=== PATIENT | female | born 1995 | race Caucasian/White ===

== ENCOUNTER 2016-10-23 15:52 | Inpatient (IN) | payer SELFPAY ==
[~2016-10-23] VITALS: Ht 162.6 cm; Wt 70.3 kg
[~2016-10-23 15:52] MED LIST: ALPR0.25 PO; AMIT10TA PO; AMOX875T PO; HYDR-2666 PO; ONDA4TAB10 PO; PRED50TA PO
[2016-10-23] MEDS ORDERED: IV NORMAL SALINE 1000ML BAG 1,000 ML IV SCH (17:12)
--- NOTE | 2016-10-23 17:12 | PHYS DOC ---
Past Medical History Past Medical History: Anxiety, Asthma, Cyclic Vomiting, Depression Additional Past Medical Histor: cyclic vomiting syndrome Past Surgical History: Cholecystectomy Alcohol Use: None Drug Use: Marijuana Social History Narrative: last used 3-4 weeks ago Adult General Chief Complaint Chief Complaint: ABDOMINAL PAIN HPI HPI Patient is a 21 year old female who presents with nausea/vomiting/diarrhea and abdominal pain. Of note, patient has history of cyclic vomiting syndrome and has had similar episodes in the past. She reports her symptoms started yesterday morning without provocation. She describes a sharp constant periumbilical pain that is worse with vomiting. She says she has vomited so many times today she is unable to keep track. No blood in emesis or stool. She denies fever. She takes amitriptyline for anxiety but says she does not have any nausea meds or pain meds at home. Review of Systems Review of Systems Constitutional: Denies fever or chills Eyes: Denies change in visual acuity or eye pain HENT: Denies nasal congestion or sore throat Respiratory: Denies cough or shortness of breath Cardiovascular: Denies chest pain GI: Periumbilica abdominal pain, nausea, vomiting, diarrhea : Denies dysuria or hematuria Musculoskeletal: Denies back pain or joint pain Integument: Denies rash or skin lesions Neurologic: Denies headache, focal weakness or sensory changes Current Medications Current Medications Current Medications Medications (Trade) Dose Ordered Sig/Arnaldo Start Time Stop Time Status Last Admin Dose Admin Lorazepam (Ativan) 1 mg 1X ONCE 10/23/16 18:15 10/23/16 18:16 DC 10/23/16 18:45 1 MG Morphine Sulfate 4 mg 1X ONCE 10/23/16 17:15 10/23/16 17:18 DC 10/23/16 17:55 4 MG Ondansetron HCl (Zofran) 4 mg 1X ONCE 10/23/16 18:15 10/23/16 18:16 DC 10/23/16 18:41 4 MG Pantoprazole Sodium (Protonix Vial) 40 mg 1X ONCE 10/23/16 18:15 10/23/16 18:16 DC 10/23/16 18:42 40 MG Prochlorperazine Edisylate (Compazine) 10 mg 1X ONCE 10/23/16 17:15 10/23/16 17:18 DC 10/23/16 17:53 10 MG Sodium Chloride (Iv Sodium Chloride 0.9% 1000ml Bag) 1,000 ml @ 1,000 mls/hr Q1H 10/23/16 17:12 10/23/16 18:11 DC 10/23/16 17:51 1,000 MLS/HR Allergies Allergies Allergies Coded Allergies Type Severity Reaction Last Updated Verified coconut Allergy Severe Anaphylaxis 09/04/16 Yes Physical Exam Physical Exam Constitutional: Well developed, well nourished, non-toxic appearance HENT: Normocephalic, atraumatic, bilateral external ears normal Eyes: EOMI, conjunctiva normal, no discharge Neck: Normal range of motion, no stridor Cardiovascular: Tachycardic, regular rhythm, no murmur Lungs & Thorax: Bilateral breath sounds clear to auscultation Abdomen: Bowel sounds normal, soft, non-distended, periumbilical TTP without guarding or rebound; frequent NBNB vomiting Skin: Warm, dry, no erythema, no rash Extremities: No obvious deformity, no edema Neurologic: Alert and oriented X 3, no gross deficits noted Current Patient Data Vital Signs Vital Signs Date Time Temp Pulse Resp B/P Pulse Ox O2 Delivery O2 Flow Rate FiO2 10/23/16 17:58 101 24 136/88 100 Room Air 10/23/16 16:36 98.3 98.3 Lab Values Laboratory Tests Test 10/23/16 17:05 White Blood Count 13.8x10^3/uL (4.0-11.0) H Red Blood Count 4.98x10^6/uL (3.50-5.40) Hemoglobin 14.8g/dL (12.0-15.5) Hematocrit 43.0% (36.0-47.0) Mean Corpuscular Volume 86fL (79-100) Mean Corpuscular Hemoglobin 30pg (25-35) Mean Corpuscular Hemoglobin Concent 35g/dL (31-37) Red Cell Distribution Width 13.2% (11.5-14.5) Platelet Count 219x10^3/uL (140-400) Neutrophils (%) (Auto) 79% (31-73) H Lymphocytes (%) (Auto) 16% (24-48) L Monocytes (%) (Auto) 4% (0-9) Eosinophils (%) (Auto) 0% (0-3) Basophils (%) (Auto) 0% (0-3) Neutrophils # (Auto) 10.9x10^3uL (1.8-7.7) H Lymphocytes # (Auto) 2.2x10^3/uL (1.0-4.8) Monocytes # (Auto) 0.6x10^3/uL (0.0-1.1) Eosinophils # (Auto) 0.0x10^3/uL (0.0-0.7) Basophils # (Auto) 0.1x10^3/uL (0.0-0.2) Urine Collection Type Void Urine Color Yellow Urine Clarity Turbid Urine pH 6.0 Urine Specific [place] >=1.030 Urine Protein Negativemg/dL (NEG-TRACE) Urine Glucose (UA) Negativemg/dL (NEG) Urine Ketones (Stick) 15mg/dL (NEG) Urine Blood Negative (NEG) Urine Nitrite Negative (NEG) Urine Bilirubin Negative (NEG) Urine Urobilinogen Dipstick 0.2mg/dL (0.2 mg/dL) Urine Leukocyte Esterase Negative (NEG) Urine RBC 0/HPF (0-2) Urine WBC 1-4/HPF (0-4) Urine Squamous Epithelial Cells Many/LPF Urine Bacteria Many/HPF (0-FEW) Urine Mucus Marked/LPF Urine Test Negative (NEG) Sodium Level 139mmol/L (136-145) Potassium Level 3.6mmol/L (3.5-5.1) Chloride Level 101mmol/L (98-107) Carbon Dioxide Level 21mmol/L (21-32) Anion Gap 17 (6-14) H Blood Urea Nitrogen 12mg/dL (7-20) Creatinine 0.9mg/dL (0.6-1.0) Estimated GFR (Cockcroft-Gault) 77.6 BUN/Creatinine Ratio 13 (6-20) Glucose Level 171mg/dL (70-99) H Calcium Level 9.5mg/dL (8.5-10.1) Total Bilirubin 0.8mg/dL (0.2-1.0) Aspartate Amino Transferase (AST) 12U/L (15-37) L Alanine Aminotransferase (ALT) 21U/L (14-59) Alkaline Phosphatase 66U/L (46-116) Total Protein 8.0g/dL (6.4-8.2) Albumin 4.5g/dL (3.4-5.0) Albumin/Globulin Ratio 1.3 (1.0-1.7) Lipase 101U/L (73-393) Laboratory Tests 10/23/16 17:05 Laboratory Tests 10/23/16 17:05 EKG EKG [] Radiology/Procedures Radiology/Procedures [] Course & Med Decision Making Course & Med Decision Making Pertinent Labs and Imaging studies reviewed. (See chart for details) Patient is 21-year-old female who presents with abdominal pain, nausea/vomiting/ diarrhea. Apparent cyclic vomiting episode. Will check labs, UA. IV fluids, pain medication, nausea medication ordered for symptom relief. Labs notable for leukocytosis. Discussed results with patient, who continues to experience severe symptoms. Will give another dose of meds; if unable to control symptoms will need admission. At this time will transfer patient care to Dr. Garcia. Ce Disclaimer Ce Disclaimer This electronic medical record was generated, in whole or in part, using a voice recognition dictation system. Departure Departure Referrals: NO PCP (PCP) KEREN MONTENEGRO MD Oct 23, 2016 17:12
[2016-10-23] MEDS ORDERED: MORPHINE SULFATE 4 MG/ML DISP.SYRIN. IV ONE (17:15)
[2016-10-23] MEDS ORDERED: PROCHLORPERAZINE 10 MG/2 ML VIAL. IV ONE (17:15)
[2016-10-23 17:25] LABS: BASO # 0.1 x10^3/uL (0.0-0.2); BASO % 0 % (0-3); EOS % 0 % (0-3); HEMOGLOBIN 14.8 g/dL (12.0-15.5); LYMPH # 2.2 x10^3/uL (1.0-4.8); LYMPH % 16 % (24-48); MEAN CORPUSCULAR HEMOGLOBIN 30 pg (25-35); MEAN CORPUSCULAR HGB CONC 35 g/dL (31-37); MEAN CORPUSCULAR VOLUME 86 fL (79-100); MONO % 4 % (0-9); NEUT % 79 % (31-73); PLATELET COUNT 219 x10^3/uL (140-400); RED BLOOD COUNT 4.98 x10^6/uL (3.50-5.40); RED CELL DISTRIBUTION WIDTH 13.2 % (11.5-14.5); WHITE BLOOD COUNT 13.8 x10^3/uL (4.0-11.0)
[2016-10-23 17:31] LABS: NEG OBC UR NEG; POS OBC UR POS
[2016-10-23 17:32] LABS: BILIRUBIN,URINE NEGATIVE (NEG); GLUCOSE,URINE NEGATIVE (NEG); NITRITE,URINE NEGATIVE (NEG); PROTEIN,URINE NEGATIVE (NEG-TRACE); UROBILINOGEN,URINE 0.2 mg/dL (0.2 mg/dL)
[2016-10-23 17:33] LABS: CALCIUM 9.5 mg/dL (8.5-10.1); CREATININE 0.9 mg/dL (0.6-1.0); GFR 77.6; POTASSIUM 3.6 mmol/L (3.5-5.1)
[2016-10-23 17:38] LABS: ALBUMIN 4.5 g/dL (3.4-5.0); ALBUMIN/GLOBULIN RATIO 1.3 (1.0-1.7); TOTAL BILIRUBIN 0.8 mg/dL (0.2-1.0)
[2016-10-23 17:42] LABS: BACTERIA,URINE MANY /HPF (0-FEW); RBC,URINE 0 /HPF (0-2); SQUAMOUS EPITHELIAL CELL,UR MANY /LPF
[2016-10-23] MEDS ORDERED: LORAZEPAM 2 MG/ML VIAL IV ONE (18:15)
[2016-10-23] MEDS ORDERED: ONDANSETRON PF 4 MG/2 ML VIAL. IV ONE (18:15)
[2016-10-23] MEDS ORDERED: PANTOPRAZOLE IV PUSH 40 MG VIAL. IVP ONE (18:15)
[2016-10-23] MEDS: IV NORMAL SALINE 1000ML BAG 1,000 ML IV SCH (20:11)
[2016-10-23] MEDS: ONDANSETRON PF 4 MG/2 ML VIAL. IV PRN (20:12)
[2016-10-23] MEDS: FENTANYL PF 100 MCG/2 ML VIAL. IV PRN (20:14)
[2016-10-23] MEDS ORDERED: ACETAMINOPHEN 325 MG TABLET. PO PRN (20:15)
[2016-10-23 21:35] VITALS: BP 122/83
[2016-10-23 23:00] VITALS: BP 104/71
[2016-10-24] MEDS: IV NORMAL SALINE 1000ML BAG 1,000 ML IV SCH ×2 (00:46→08:06)
[2016-10-24 03:00] VITALS: BP 90/40
[2016-10-24] MEDS: FENTANYL PF 100 MCG/2 ML VIAL. IV PRN ×2 (03:22→08:08)
[2016-10-24] MEDS: ONDANSETRON PF 4 MG/2 ML VIAL. IV PRN (03:22)
[2016-10-24 07:00] VITALS: BP 94/55
[2016-10-24 11:15] VITALS: BP 113/80
== END 2016-10-24 13:20 | disposition left against medical advice (07) | DRG 103 ==
LOC: ER 15:52 → 5 SOUTH 19:30
PROVIDERS: ADMIT Internal Medicine; ATTEND Internal Medicine
DX: G43.A0 Cyclical vomiting, in migraine, not intractable (principal); R10.9 Unspecified abdominal pain; J45.909 Unspecified asthma, uncomplicated; F41.9 Anxiety disorder, unspecified; F12.90 Cannabis use, unspecified, uncomplicated; F32.9 Major depressive disorder, single episode, unspecified; Z90.49 Acquired absence of other specified parts of digestive tract
CPT/HCPCS: 36415; 80053; 81001; 81025; 83690; 85027; 87086; 87186; 96361; 96374; 96375; C9113; J0780; J2060; J2270; J2405; J3010; J7030; 99285-25

== ENCOUNTER 2016-12-16 07:22 | Inpatient (IN) | payer SELFPAY ==
[~2016-12-16] VITALS: Ht 162.6 cm; Wt 68.0 kg
--- NOTE | 2016-12-16 07:56 | PHYS DOC ---
Past Medical History Past Medical History: Anxiety, Asthma, Cyclic Vomiting, Depression Additional Past Medical Histor: cyclic vomiting syndrome Past Surgical History: Cholecystectomy Alcohol Use: None Drug Use: Marijuana Adult General Chief Complaint Chief Complaint: ABDOMINAL PAIN HPI HPI Patient is a 21 year old female who presents with who vomiting at all pain. She states she has a history of cyclic vomiting syndrome this exact same thing happens every time. She states she started having abdominal pain around 6 PM last night and then this morning has been vomiting bile. She denies any fevers chills or diarrhea. She states this is her typical presentation and usually has be admitted secondary to this. She states she's wished takes Protonix IV, Ativan, Dilaudid and Zofran to help with her symptoms. Review of Systems Review of Systems Constitutional: Denies fever or chills [] Eyes: Denies change in visual acuity, redness, or eye pain [] HENT: Denies nasal congestion or sore throat [] Respiratory: Denies cough or shortness of breath [] Cardiovascular: No additional information not addressed in HPI [] GI: As a for abdominal pain, nausea vomiting, denies any diarrhea or blood in her stools. : Denies dysuria or hematuria [] Musculoskeletal: Denies back pain or joint pain [] Integument: Denies rash or skin lesions [] Neurologic: Denies headache, focal weakness or sensory changes [] Endocrine: Denies polyuria or polydipsia [] Current Medications Current Medications Current Medications Medications (Trade) Dose Ordered Sig/Arnaldo Start Time Stop Time Status Last Admin Dose Admin Hydromorphone HCl (Dilaudid) 1 mg PRN Q15MIN PRN 12/16/16 07:45 12/17/16 07:44 12/16/16 09:33 1 MG Lorazepam (Ativan) 1 mg 1X ONCE 12/16/16 08:00 12/16/16 08:01 DC 12/16/16 08:15 1 MG Morphine Sulfate 4 mg PRN Q3HRS PRN 12/16/16 09:30 12/17/16 09:29 Ondansetron HCl (Zofran) 4 mg PRN Q8HRS PRN 12/16/16 09:30 12/17/16 09:29 Pantoprazole Sodium 40 mg 40 mg 1X ONCE 12/16/16 08:00 12/16/16 08:01 DC 12/16/16 08:10 40 MG Sodium Chloride (Iv Sodium Chloride 0.9% 1000ml Bag) 1,000 ml @ 1,000 mls/hr 1X ONCE 12/16/16 09:15 12/16/16 10:14 DC Allergies Allergies Allergies Coded Allergies Type Severity Reaction Last Updated Verified coconut Allergy Severe Anaphylaxis 09/04/16 Yes Physical Exam Physical Exam Constitutional: Well developed, well nourished, no acute distress, non-toxic appearance. [] HENT: Normocephalic, atraumatic, bilateral external ears normal, oropharynx moist, no oral exudates, nose normal. [] Eyes: PERRLA, EOMI, conjunctiva normal, no discharge. [] Neck: Normal range of motion, no tenderness, supple, no stridor. [] Cardiovascular:Heart rate regular rhythm, no murmur [] Lungs & Thorax: Bilateral breath sounds clear to auscultation [] Abdomen: Bowel sounds normal, soft, mild tenderness to palpation diffusely, no rebound or guarding no masses, no pulsatile masses. [] Skin: Warm, dry, no erythema, no rash. [] Back: No tenderness, no CVA tenderness. [] Extremities: No tenderness, no cyanosis, no clubbing, ROM intact, no edema. [] Neurologic: Alert and oriented X 3, normal motor function, normal sensory function, no focal deficits noted. [] Psychologic: Affect normal, judgement normal, mood normal. [] Current Patient Data Vital Signs Vital Signs Date Time Temp Pulse Resp B/P Pulse Ox O2 Delivery O2 Flow Rate FiO2 12/16/16 07:30 98.2 100 28 171/95 98 Room Air 98.2 Lab Values Laboratory Tests Test 12/16/16 07:54 12/16/16 08:03 White Blood Count 10.8x10^3/uL (4.0-11.0) Red Blood Count 4.93x10^6/uL (3.50-5.40) Hemoglobin 14.5g/dL (12.0-15.5) Hematocrit 42.9% (36.0-47.0) Mean Corpuscular Volume 87fL (79-100) Mean Corpuscular Hemoglobin 30pg (25-35) Mean Corpuscular Hemoglobin Concent 34g/dL (31-37) Red Cell Distribution Width 13.7% (11.5-14.5) Platelet Count 206x10^3/uL (140-400) Neutrophils (%) (Auto) 58% (31-73) Lymphocytes (%) (Auto) 34% (24-48) Monocytes (%) (Auto) 6% (0-9) Eosinophils (%) (Auto) 1% (0-3) Basophils (%) (Auto) 1% (0-3) Neutrophils # (Auto) 6.3x10^3uL (1.8-7.7) Lymphocytes # (Auto) 3.7x10^3/uL (1.0-4.8) Monocytes # (Auto) 0.7x10^3/uL (0.0-1.1) Eosinophils # (Auto) 0.1x10^3/uL (0.0-0.7) Basophils # (Auto) 0.1x10^3/uL (0.0-0.2) Urine Collection Type Unknown Urine Color Yellow Urine Clarity Clear Urine pH 5.5 Urine Specific [place] >=1.030 Urine Protein 30mg/dL (NEG-TRACE) Urine Glucose (UA) Negativemg/dL (NEG) Urine Ketones (Stick) Negativemg/dL (NEG) Urine Blood Negative (NEG) Urine Nitrite Negative (NEG) Urine Bilirubin Negative (NEG) Urine Urobilinogen Dipstick 0.2mg/dL (0.2 mg/dL) Urine Leukocyte Esterase Negative (NEG) Urine RBC Occ/HPF (0-2) Urine WBC 0/HPF (0-4) Urine Squamous Epithelial Cells None/LPF Urine Bacteria 0/HPF (0-FEW) Urine Mucus Marked/LPF Sodium Level 143mmol/L (136-145) Potassium Level 3.6mmol/L (3.5-5.1) Chloride Level 105mmol/L (98-107) Carbon Dioxide Level 22mmol/L (21-32) Anion Gap 16 (6-14) H Blood Urea Nitrogen 16mg/dL (7-20) Creatinine 0.9mg/dL (0.6-1.0) Estimated GFR (Cockcroft-Gault) 77.6 Glucose Level 164mg/dL (70-99) H Calcium Level 9.6mg/dL (8.5-10.1) Total Bilirubin 0.4mg/dL (0.2-1.0) Direct Bilirubin 0.1mg/dL (0.0-0.2) Aspartate Amino Transferase (AST) 16U/L (15-37) Alanine Aminotransferase (ALT) 20U/L (14-59) Alkaline Phosphatase 69U/L (46-116) Creatine Kinase 132U/L (26-192) Total Protein 8.2g/dL (6.4-8.2) Albumin 4.3g/dL (3.4-5.0) Lipase 156U/L (73-393) Serum Test, Qualitative Negative (NEG) Urine Opiates Screen Neg (NEG) Urine Methadone Screen Neg (NEG) Urine Barbiturates Neg (NEG) Urine Phencyclidine Screen Neg (NEG) Urine Amphetamine/Methamphetamine Neg (NEG) Urine Benzodiazepines Screen Pos (NEG) Urine Cocaine Screen Neg (NEG) Urine Cannabinoids Screen Pos (NEG) Urine Ethyl Alcohol Neg (NEG) POC Urine HCG, Qualitative Hcg negative (Negative) Laboratory Tests 12/16/16 07:54 Laboratory Tests 12/16/16 07:54 EKG EKG [] Radiology/Procedures Radiology/Procedures [] Impressions: Intractable nausea vomiting Course & Med Decision Making Course & Med Decision Making Pertinent Labs and Imaging studies reviewed. (See chart for details) She received IV fluid, Dilaudid, Zofran, Ativan and Protonix. She's not feeling any better and requiring multiple doses of medications and will require admission. Spoke with Dr. Ayala who is agreeable plan. Patient's in stable condition at this time. Dragon Disclaimer Dragon Disclaimer This electronic medical record was generated, in whole or in part, using a voice recognition dictation system. Departure Departure Impression: Primary Impression: Intractable nausea and vomiting Disposition: ADMITTED INPATIENT Admitting Physician: Christine Ascencio Condition: STABLE Referrals: NO PCP (PCP) NATALIE DOTY MD Dec 16, 2016 07:56
[2016-12-16] MEDS ORDERED: LORAZEPAM 2 MG/ML VIAL IV ONE (08:00)
[2016-12-16] MEDS ORDERED: ONDANSETRON PF 4 MG/2 ML VIAL. IV ONE (08:00)
[2016-12-16] MEDS ORDERED: PANTOPRAZOLE IV PUSH 40 MG VIAL. IVP ONE (08:00)
[2016-12-16] MEDS: IV NORMAL SALINE 1000ML BAG 1,000 ML IV SCH ×2 (08:06→09:36)
[2016-12-16 08:12] LABS: CALCIUM 9.6 mg/dL (8.5-10.1); CREATININE 0.9 mg/dL (0.6-1.0); GFR 77.6; POTASSIUM 3.6 mmol/L (3.5-5.1)
[2016-12-16] MEDS: HYDROMORPHONE 2 MG/ML VIAL. IV/SQ PRN ×2 (08:14→09:33)
[2016-12-16 08:18] LABS: ALBUMIN 4.3 g/dL (3.4-5.0); BASO # 0.1 x10^3/uL (0.0-0.2); BASO % 1 % (0-3); DIRECT BILIRUBIN 0.1 mg/dL (0.0-0.2); EOS % 1 % (0-3); HEMATOCRIT 42.9 % (36.0-47.0); HEMOGLOBIN 14.5 g/dL (12.0-15.5); LYMPH # 3.7 x10^3/uL (1.0-4.8); LYMPH % 34 % (24-48); MEAN CORPUSCULAR HEMOGLOBIN 30 pg (25-35); MEAN CORPUSCULAR HGB CONC 34 g/dL (31-37); MEAN CORPUSCULAR VOLUME 87 fL (79-100); MONO % 6 % (0-9); NEG OBC SER NEG; NEUT % 58 % (31-73); PLATELET COUNT 206 x10^3/uL (140-400); POS OBC SER POS; RED BLOOD COUNT 4.93 x10^6/uL (3.50-5.40); RED CELL DISTRIBUTION WIDTH 13.7 % (11.5-14.5); TOTAL BILIRUBIN 0.4 mg/dL (0.2-1.0); TOTAL PROTEIN 8.2 g/dL (6.4-8.2); WHITE BLOOD COUNT 10.8 x10^3/uL (4.0-11.0)
[2016-12-16 08:19] LABS: BILIRUBIN,URINE NEGATIVE (NEG); GLUCOSE,URINE NEGATIVE (NEG); NITRITE,URINE NEGATIVE (NEG); PH,URINE 5.5; PROTEIN,URINE 30 mg/dL (NEG-TRACE); UROBILINOGEN,URINE 0.2 mg/dL (0.2 mg/dL)
[2016-12-16 08:36] LABS: BACTERIA,URINE 0 /HPF (0-FEW); RBC,URINE OCC /HPF (0-2); WBC,URINE 0 /HPF (0-4)
[2016-12-16 08:40] LABS: BARBITURATES NEG (NEG); BENZODIAZEPINES POS (NEG); CANNABINOIDS POS (NEG); COCAINE NEG (NEG); METHADONE NEG (NEG); OPIATES NEG (NEG); PHENCYCLIDINE NEG (NEG)
[2016-12-16 08:41] LABS: ETHANOL, URINE NEG (NEG)
[2016-12-16] MEDS ORDERED: IV NORMAL SALINE 1000ML BAG 1,000 ML IV ONE (09:15)
--- NOTE | 2016-12-16 10:47 | ACF ---
Admit Criteria Forms Admit Criteria Forms Admit Criteria Forms VOMITING Clinical Indications for Admission to Inpatient Care ( Place 'X' for any and all applicable criteria): Admission is indicated for ANY ONE of the following(1)(2)(3): [X]I. Inpatient admission required rather than observation care because of ANY ONE of the following: [ ]i) Hemodynamic instability that is severe or persistent [X]ii) Vomiting that is severe or persistent [ ]iii) Severe electrolyte abnormalities requiring inpatient care [ ]iv) Severe pain requiring acute inpatient management [ ]v) High fever or infection requiring inpatient admission as indicated by ANY ONE of the following(7)(8): [ ]1) Appropriate outpatient or observation care antimicrobial treatment unavailable, not effective, or not feasible [ ]2) Documented bacteremia [ ]3) Temp >104.9 degrees F (40.5 degrees C) (oral) [ ]4) Temp >103.1 degrees F (39.5 C) (oral) or <96.8 degrees F (36 C) (rectal) that does not respond to all emergency treatment measures [ ]vi) Acute renal failure [ ]vii) IV fluid to replace significant ongoing losses (greater than 3 L/m2 per day) [ ]viii) Parenteral nutrition regimen that must be implemented on inpatient basis [ ]ix) Other condition, treatment or monitoring requiring inpatient admission [ ]II. Complete or partial gastrointestinal obstruction [ ]III. Other cause of vomiting requiring hospitalization (eg, poisoning, increased intracranial pressure) [ ]IV. Vomiting due to significant metabolic derangement (eg, severe hypercalcemia, diabetic ketoacidosis) Extended stay beyond goal length of stay may be needed for(1)(4): [ ]a) Severe vomiting [ ]b) Persistent vomiting, vital sign changes, severe electrolyte imbalance , or diagnosed cause of vomiting that requires continued hospitalization (eg, gastrointestinal obstruction , increased intracranial pressure) [ ]c) Surgery to treat identified causes of vomiting (eg, bowel obstruction , intracranial process) [ ]d) Comorbid illness that requires inpatient care (eg, acute heart failure , renal failure) [ ]e) Need for inpatient endoscopy The original [facility] [employer] content created by [employer] has been revised. The portions of the content which have been revised are identified through the use of italic text or in bold, and [employer] has neither reviewed nor approved the modified material. All other unmodified content is copyright [facility]. Please see references footnoted in the original [facility] edition 2016 WYATT DOMINGUEZ Dec 16, 2016 10:47
[2016-12-16] MEDS: ONDANSETRON PF 4 MG/2 ML VIAL. IV PRN ×2 (11:13→19:19)
[2016-12-16] MEDS: MORPHINE SULFATE 4 MG/ML DISP.SYRIN. IV PRN ×4 (13:20→22:45)
[2016-12-16 15:00] VITALS: BP 116/66
[2016-12-16 15:37] VITALS: BP 171/95
--- NOTE | 2016-12-16 17:32 | HP ---
ADMIT DATE: 12/16/2016 CHIEF COMPLAINT: Nausea, vomiting. HISTORY OF PRESENT ILLNESS: The patient is a pleasant 21-year-old female well known to our service. She basically has chronic nausea, vomiting from cyclic vomiting, once again she presents with a severe exacerbation ____ for a couple of days. She tried increasing her home meds, but is not working. I have discussed the case with ER physician. We are going to admit and give her IV fluids and antiemetics and consult GI. PAST MEDICAL HISTORY: Nausea, vomiting, cyclic vomiting syndrome, asthma, depression and cholecystectomy. ALLERGIES: COCONUT. FAMILY HISTORY: Diabetes. SOCIAL HISTORY: She does not drink, smoke or take drugs. MEDICATIONS: Reviewed, please refer to the MAR. REVIEW OF SYSTEMS: GENERAL: No history of weight change, weakness or fevers. SKIN: No bruising, hair changes or rashes. EYES: No blurred, double or loss of vision. NOSE AND THROAT: No history of nosebleeds, hoarseness or sore throat. HEART: No history of palpitations, chest pain or shortness of breath on exertion. LUNGS: Denies cough, hemoptysis, wheezing or shortness of breath. GASTROINTESTINAL: She complains of abdominal pain and nausea, vomiting. GENITOURINARY: No history of frequency, urgency, hesitancy or nocturia. NEUROLOGIC: Denies history of numbness, tingling, tremor or weakness. PSYCHIATRIC: No history of panic, anxiety or depression. ENDOCRINE: No history of heat or cold intolerance, polyuria or polydipsia. EXTREMITIES: Denies muscle weakness, joint pain, pain on walking or stiffness. PHYSICAL EXAMINATION: VITAL SIGNS: Temperature afebrile, pulse 92, respirations 18, blood pressure 171/95. GENERAL: She is alert, cooperative, complaining of nausea. HEART: Normal S1, S2. LUNGS: Clear. ABDOMEN: Soft, positive bowel sounds, tender. EXTREMITIES: No edema. SKIN: No rashes. PSYCHIATRIC: She is depressed. VASCULAR: Good capillary refill. ENDOCRINE: No thyromegaly. LYMPHATICS: No cervical nodes. HEMATOPOIETIC: No bruising. LABORATORY DATA: Hematology normal. Electrolytes normal other than anion gap of 16, glucose of 164. Drug screen positive for cannabinoids. Urinalysis negative. ASSESSMENT AND PLAN: [id number] exacerbation of cyclic vomiting syndrome. The patient is being admitted. We will give her p.r.n. Zofran, IV fluids, continue home medicines, consult GI, repeat her labs. SCDs to lower extremities. CHEYENNE LOYOLA DO DR: BYRON/rusty JOB#: [id number] / [id number]
[2016-12-16 19:59] VITALS: BP 133/79
[2016-12-16] MEDS ORDERED: AMITRIPTYLINE HCL 10 MG TABLET PO SCH (21:00)
[2016-12-16] MEDS: FENTANYL PF 100 MCG/2 ML VIAL. IV PRN (21:47)
[2016-12-16] MEDS: LORAZEPAM 2 MG/ML VIAL IV PRN (21:47)
[2016-12-17] MEDS: FENTANYL PF 100 MCG/2 ML VIAL. IV PRN ×3 (02:27→10:24)
[2016-12-17] MEDS: LORAZEPAM 2 MG/ML VIAL IV PRN ×3 (02:27→14:27)
[2016-12-17] MEDS: MORPHINE SULFATE 4 MG/ML DISP.SYRIN. IV PRN ×2 (04:02→08:00)
[2016-12-17] MEDS: ONDANSETRON PF 4 MG/2 ML VIAL. IV PRN (04:02)
[2016-12-17 05:12] LABS: BASO % 0 % (0-3); EOS % 0 % (0-3); HEMATOCRIT 40.9 % (36.0-47.0); HEMOGLOBIN 14.1 g/dL (12.0-15.5); LYMPH # 1.4 x10^3/uL (1.0-4.8); LYMPH % 12 % (24-48); MEAN CORPUSCULAR HEMOGLOBIN 29 pg (25-35); MEAN CORPUSCULAR HGB CONC 34 g/dL (31-37); MEAN CORPUSCULAR VOLUME 85 fL (79-100); MONO % 5 % (0-9); NEUT % 84 % (31-73); PLATELET COUNT 207 x10^3/uL (140-400); RED BLOOD COUNT 4.83 x10^6/uL (3.50-5.40); RED CELL DISTRIBUTION WIDTH 13.7 % (11.5-14.5)
[2016-12-17 05:30] LABS: ALBUMIN 4.3 g/dL (3.4-5.0); ALBUMIN/GLOBULIN RATIO 1.1 (1.0-1.7); CALCIUM 9.4 mg/dL (8.5-10.1); CREATININE 0.7 mg/dL (0.6-1.0); GFR 103.7; POTASSIUM 3.1 mmol/L (3.5-5.1); TOTAL BILIRUBIN 1.2 mg/dL (0.2-1.0); TOTAL PROTEIN 8.1 g/dL (6.4-8.2)
[2016-12-17 07:28] VITALS: BP 109/55
[2016-12-17] MEDS ORDERED: ONDANSETRON PF 4 MG/2 ML VIAL. IV PRN ×2 (09:45→12:30)
[2016-12-17 10:06] VITALS: BP 100/66
--- NOTE | 2016-12-17 10:13 | PDOC ---
PROGRESS NOTES Chief Complaint Chief Complaint CC: Vomiting A/P Intractable vomiting Unclear etiology ? THC related. Hypokalemia due to vomiting THC use Plan replace potassium advance diet IV NS with D5 and Potassium IV Zofran limit narcotics History of Present Illness History of Present Illness Nausea no vomiting Vitals Vitals Vital Signs Date Time Temp Pulse Resp B/P Pulse Ox O2 Delivery O2 Flow Rate FiO2 12/17/16 10:06 98.2 79 20 100/66 99 Room Air 98.2 Physical Exam General: Alert, Oriented X3 Heart: Normal S1, Normal S2 Lungs: Clear Abdomen: Normal bowel sounds, Soft Labs LABS Laboratory Tests Test 12/17/16 04:35 White Blood Count 12.0x10^3/uL (4.0-11.0) Red Blood Count 4.83x10^6/uL (3.50-5.40) Hemoglobin 14.1g/dL (12.0-15.5) Hematocrit 40.9% (36.0-47.0) Mean Corpuscular Volume 85fL (79-100) Mean Corpuscular Hemoglobin 29pg (25-35) Mean Corpuscular Hemoglobin Concent 34g/dL (31-37) Red Cell Distribution Width 13.7% (11.5-14.5) Platelet Count 207x10^3/uL (140-400) Neutrophils (%) (Auto) 84% (31-73) Lymphocytes (%) (Auto) 12% (24-48) Monocytes (%) (Auto) 5% (0-9) Eosinophils (%) (Auto) 0% (0-3) Basophils (%) (Auto) 0% (0-3) Neutrophils # (Auto) 10.0x10^3uL (1.8-7.7) Lymphocytes # (Auto) 1.4x10^3/uL (1.0-4.8) Monocytes # (Auto) 0.5x10^3/uL (0.0-1.1) Eosinophils # (Auto) 0.0x10^3/uL (0.0-0.7) Basophils # (Auto) 0.0x10^3/uL (0.0-0.2) Sodium Level 139mmol/L (136-145) Potassium Level 3.1mmol/L (3.5-5.1) Chloride Level 100mmol/L (98-107) Carbon Dioxide Level 24mmol/L (21-32) Anion Gap 15 (6-14) Blood Urea Nitrogen 9mg/dL (7-20) Creatinine 0.7mg/dL (0.6-1.0) Estimated GFR (Cockcroft-Gault) 103.7 BUN/Creatinine Ratio 13 (6-20) Glucose Level 112mg/dL (70-99) Calcium Level 9.4mg/dL (8.5-10.1) Total Bilirubin 1.2mg/dL (0.2-1.0) Aspartate Amino Transf (AST/SGOT) 18U/L (15-37) Alanine Aminotransferase (ALT/SGPT) 21U/L (14-59) Alkaline Phosphatase 62U/L (46-116) Total Protein 8.1g/dL (6.4-8.2) Albumin 4.3g/dL (3.4-5.0) Albumin/Globulin Ratio 1.1 (1.0-1.7) Assessment and Plan Assessmemt and Plan Problems Medical Problems: (1) Intractable nausea and vomiting Status: Acute (2) Nausea & vomiting Status: Acute Problems: Comment Review of Relevant I have reviewed the following items miguel (where applicable) has been applied. Labs Laboratory Tests Test 12/16/16 07:54 12/16/16 08:03 12/17/16 04:35 White Blood Count 10.8x10^3/uL (4.0-11.0) 12.0x10^3/uL (4.0-11.0) Red Blood Count 4.93x10^6/uL (3.50-5.40) 4.83x10^6/uL (3.50-5.40) Hemoglobin 14.5g/dL (12.0-15.5) 14.1g/dL (12.0-15.5) Hematocrit 42.9% (36.0-47.0) 40.9% (36.0-47.0) Mean Corpuscular Volume 87fL (79-100) 85fL (79-100) Mean Corpuscular Hemoglobin 30pg (25-35) 29pg (25-35) Mean Corpuscular Hemoglobin Concent 34g/dL (31-37) 34g/dL (31-37) Red Cell Distribution Width 13.7% (11.5-14.5) 13.7% (11.5-14.5) Platelet Count 206x10^3/uL (140-400) 207x10^3/uL (140-400) Neutrophils (%) (Auto) 58% (31-73) 84% (31-73) Lymphocytes (%) (Auto) 34% (24-48) 12% (24-48) Monocytes (%) (Auto) 6% (0-9) 5% (0-9) Eosinophils (%) (Auto) 1% (0-3) 0% (0-3) Basophils (%) (Auto) 1% (0-3) 0% (0-3) Neutrophils # (Auto) 6.3x10^3uL (1.8-7.7) 10.0x10^3uL (1.8-7.7) Lymphocytes # (Auto) 3.7x10^3/uL (1.0-4.8) 1.4x10^3/uL (1.0-4.8) Monocytes # (Auto) 0.7x10^3/uL (0.0-1.1) 0.5x10^3/uL (0.0-1.1) Eosinophils # (Auto) 0.1x10^3/uL (0.0-0.7) 0.0x10^3/uL (0.0-0.7) Basophils # (Auto) 0.1x10^3/uL (0.0-0.2) 0.0x10^3/uL (0.0-0.2) Urine Collection Type Unknown Urine Color Yellow Urine Clarity Clear Urine pH 5.5 Urine Specific [place] >=1.030 Urine Protein 30mg/dL (NEG-TRACE) Urine Glucose (UA) Negativemg/dL (NEG) Urine Ketones (Stick) Negativemg/dL (NEG) Urine Blood Negative (NEG) Urine Nitrite Negative (NEG) Urine Bilirubin Negative (NEG) Urine Urobilinogen Dipstick 0.2mg/dL (0.2 mg/dL) Urine Leukocyte Esterase Negative (NEG) Urine RBC Occ/HPF (0-2) Urine WBC 0/HPF (0-4) Urine Squamous Epithelial Cells None/LPF Urine Bacteria 0/HPF (0-FEW) Urine Mucus Marked/LPF Sodium Level 143mmol/L (136-145) 139mmol/L (136-145) Potassium Level 3.6mmol/L (3.5-5.1) 3.1mmol/L (3.5-5.1) Chloride Level 105mmol/L (98-107) 100mmol/L (98-107) Carbon Dioxide Level 22mmol/L (21-32) 24mmol/L (21-32) Anion Gap 16 (6-14) 15 (6-14) Blood Urea Nitrogen 16mg/dL (7-20) 9mg/dL (7-20) Creatinine 0.9mg/dL (0.6-1.0) 0.7mg/dL (0.6-1.0) Estimated GFR (Cockcroft-Gault) 77.6 103.7 Glucose Level 164mg/dL (70-99) 112mg/dL (70-99) Calcium Level 9.6mg/dL (8.5-10.1) 9.4mg/dL (8.5-10.1) Total Bilirubin 0.4mg/dL (0.2-1.0) 1.2mg/dL (0.2-1.0) Direct Bilirubin 0.1mg/dL (0.0-0.2) Aspartate Amino Transf (AST/SGOT) 16U/L (15-37) 18U/L (15-37) Alanine Aminotransferase (ALT/SGPT) 20U/L (14-59) 21U/L (14-59) Alkaline Phosphatase 69U/L (46-116) 62U/L (46-116) Creatine Kinase 132U/L (26-192) Total Protein 8.2g/dL (6.4-8.2) 8.1g/dL (6.4-8.2) Albumin 4.3g/dL (3.4-5.0) 4.3g/dL (3.4-5.0) Lipase 156U/L (73-393) Serum Test, Qualitative Negative (NEG) Urine Opiates Screen Neg (NEG) Urine Methadone Screen Neg (NEG) Urine Barbiturates Neg (NEG) Urine Phencyclidine Screen Neg (NEG) Urine Amphetamine/Methamphetamine Neg (NEG) Urine Benzodiazepines Screen Pos (NEG) Urine Cocaine Screen Neg (NEG) Urine Cannabinoids Screen Pos (NEG) Urine Ethyl Alcohol Neg (NEG) Bedside Urine HCG, Qualitative Hcg negative (Negative) BUN/Creatinine Ratio 13 (6-20) Albumin/Globulin Ratio 1.1 (1.0-1.7) Laboratory Tests Test 12/17/16 04:35 White Blood Count 12.0x10^3/uL (4.0-11.0) Red Blood Count 4.83x10^6/uL (3.50-5.40) Hemoglobin 14.1g/dL (12.0-15.5) Hematocrit 40.9% (36.0-47.0) Mean Corpuscular Volume 85fL (79-100) Mean Corpuscular Hemoglobin 29pg (25-35) Mean Corpuscular Hemoglobin Concent 34g/dL (31-37) Red Cell Distribution Width 13.7% (11.5-14.5) Platelet Count 207x10^3/uL (140-400) Neutrophils (%) (Auto) 84% (31-73) Lymphocytes (%) (Auto) 12% (24-48) Monocytes (%) (Auto) 5% (0-9) Eosinophils (%) (Auto) 0% (0-3) Basophils (%) (Auto) 0% (0-3) Neutrophils # (Auto) 10.0x10^3uL (1.8-7.7) Lymphocytes # (Auto) 1.4x10^3/uL (1.0-4.8) Monocytes # (Auto) 0.5x10^3/uL (0.0-1.1) Eosinophils # (Auto) 0.0x10^3/uL (0.0-0.7) Basophils # (Auto) 0.0x10^3/uL (0.0-0.2) Sodium Level 139mmol/L (136-145) Potassium Level 3.1mmol/L (3.5-5.1) Chloride Level 100mmol/L (98-107) Carbon Dioxide Level 24mmol/L (21-32) Anion Gap 15 (6-14) Blood Urea Nitrogen 9mg/dL (7-20) Creatinine 0.7mg/dL (0.6-1.0) Estimated GFR (Cockcroft-Gault) 103.7 BUN/Creatinine Ratio 13 (6-20) Glucose Level 112mg/dL (70-99) Calcium Level 9.4mg/dL (8.5-10.1) Total Bilirubin 1.2mg/dL (0.2-1.0) Aspartate Amino Transf (AST/SGOT) 18U/L (15-37) Alanine Aminotransferase (ALT/SGPT) 21U/L (14-59) Alkaline Phosphatase 62U/L (46-116) Total Protein 8.1g/dL (6.4-8.2) Albumin 4.3g/dL (3.4-5.0) Albumin/Globulin Ratio 1.1 (1.0-1.7) Medications Current Medications Sodium Chloride (Iv Sodium Chloride 0.9% 1000ml Bag) 1,000 ml @ 100 mls/hr Q10H IV Last administered on 12/16/16 09:36; Start 12/16/16 at 07:45; Stop at 17:44; Status DC Hydromorphone HCl (Dilaudid) 1 mg PRN Q15MIN PRN IV/SQ PAIN GREATER THAN 3/10 Last administered on 12/16/16 09:33; Start 12/16/16 at 07:45; Stop 12/16/16 at 20: 21; Status DC Ondansetron HCl (Zofran) 4 mg 1X ONCE IV Last administered on 12/16/16 08:08; Start 12/16/16 at 08:00; Stop 12/16/16 at 08:01; Status DC Lorazepam (Ativan) 1 mg 1X ONCE IV Last administered on 12/16/16 08:15; Start 12/16/16 at 08:00; Stop 12/16/16 at 08:01; Status DC Pantoprazole Sodium 40 mg 40 mg 1X ONCE IVP Last administered on 12/16/16 08: 10; Start 12/16/16 at 08:00; Stop 12/16/16 at 08:01; Status DC Sodium Chloride (Iv Sodium Chloride 0.9% 1000ml Bag) 1,000 ml @ 1,000 mls/hr 1X ONCE IV Last administered on 12/16/16 09:15; Start 12/16/16 at 09:15; Stop 12/16/16 at 10:14; Status DC Ondansetron HCl (Zofran) 4 mg PRN Q8HRS PRN IV NAUSEA/VOMITING Last administered on 12/17/16 04:02; Start 12/16/16 at 09:30; Stop 12/17/16 at 09:29; Status DC Morphine Sulfate 4 mg PRN Q3HRS PRN IV PAIN Last administered on 12/17/16 08:00 ; Start 12/16/16 at 09:30; Stop 12/17/16 at 09:29; Status DC Amitriptyline HCl (Elavil) 10 mg QHS PO ; Start 12/16/16 at 21:00 Fentanyl Citrate (Fentanyl 2ml Vial) 50 mcg PRN Q2HR PRN IV PAIN Last administered on 12/17/16 06:33; Start 12/16/16 at 20:30 Lorazepam (Ativan) 1 mg PRN Q4HRS PRN IV ANXIETY / AGITATION Last administered on 12/17/16 02:27; Start 12/16/16 at 20:30 Ondansetron HCl (Zofran) 4 mg PRN Q6HRS PRN IV NAUSEA/VOMITING; Start 12/17/16 at 09:45 Active Scripts Active Amitriptyline Hcl 10 Mg Tablet 10 Mg PO QHS Vitals/I & O Vital Sign - Last 24 Hours 12/16/16 12/16/16 12/16/16 12/16/16 11:00 11:35 12:00 13:20 Pulse 68 70 74 Resp 20 19 18 B/P 104/50 Pulse Ox 93 93 97 98 O2 Delivery Room Air Room Air Room Air Room Air 12/16/16 12/16/16 12/16/16 12/16/16 15:00 15:37 16:25 16:49 Temp 97.2 98.2 97.2 98.2 Pulse 74 100 Resp 24 B/P 116/66 171/95 Pulse Ox 98 98 98 98 O2 Delivery Room Air 12/16/16 12/16/16 12/16/16 12/16/16 19:20 19:56 19:59 21:47 Temp 98.3 98.3 Pulse 55 Resp 28 20 26 B/P 133/79 Pulse Ox 98 O2 Delivery Room Air Room Air Room Air Room Air 12/16/16 12/17/16 12/17/16 12/17/16 22:45 02:27 03:23 04:02 Resp 23 18 26 O2 Delivery Room Air Room Air Room Air Room Air 12/17/16 12/17/16 12/17/16 12/17/16 04:49 06:33 07:12 07:28 Temp 98.5 98.5 Pulse 66 Resp 20 23 20 18 B/P 109/55 Pulse Ox 97 O2 Delivery Room Air Room Air Room Air Room Air 12/17/16 12/17/16 12/17/16 08:00 08:00 10:06 Temp 98.2 98.2 Pulse 79 Resp 20 B/P 100/66 Pulse Ox 99 O2 Delivery Room Air Room Air Room Air Intake and Output 12/16/16 12/16/16 12/17/16 15:00 23:00 07:00 Intake Total 2000 ml 600 ml 1000 ml Output Total 1000 ml 1900 ml Balance 2000 ml -400 ml -900 ml LIANG ORDOÑEZ MD Dec 17, 2016 10:13
[2016-12-17] MEDS ORDERED: IV NORMAL SALINE 1000ML BAG 1,000 ML IV ONE (10:45)
[2016-12-17] MEDS ORDERED: POTASSIUM CL 20MEQ D5-0.9%NACL 1,000 ML IV ONE (12:15)
[2016-12-17] MEDS ORDERED: ALBUTEROL SULFATE 2.5 MG/3 ML NEBU. NEB PRN (12:30)
[2016-12-17] MEDS ORDERED: ACETAMINOPHEN 325 MG TABLET. PO PRN (12:30)
[2016-12-17] MEDS ORDERED: HYDROCODONE/APAP 5/325MG TABLET. PO PRN (12:30)
[2016-12-17] MEDS ORDERED: hydrALAZINE 20 MG/ML VIAL. IVP PRN (12:30)
[2016-12-17 14:13] VITALS: BP 116/67
== END 2016-12-17 17:46 | disposition left against medical advice (07) | DRG 103 ==
LOC: ER 07:22 → OBSVTOIN 09:30 → 5 SOUTH 09:30
PROVIDERS: ADMIT Internal Medicine; ATTEND Internal Medicine
DX: G43.A0 Cyclical vomiting, in migraine, not intractable (principal); F12.90 Cannabis use, unspecified, uncomplicated; E87.6 Hypokalemia; J45.909 Unspecified asthma, uncomplicated; F32.9 Major depressive disorder, single episode, unspecified; F41.9 Anxiety disorder, unspecified; Z90.49 Acquired absence of other specified parts of digestive tract; Z83.3 Family history of diabetes mellitus; Z91.018 Allergy to other foods; Z53.21 Procedure and treatment not carried out due to patient leaving prior to being seen by health care provider
CPT/HCPCS: 36415; 80048; 80053; 80076; 81001; 81025; 82550; 83690; 84703; 85027; 96361; 96374; 96375; 96376; C9113; G0481; J1170; J2060; J2270; J2405; J3010; J7030; 99285-25

== ENCOUNTER 2016-12-20 07:17 | Inpatient (IN) | payer SELFPAY ==
[~2016-12-20] VITALS: Ht 162.6 cm; Wt 72.6 kg
[2016-12-20] MEDS ORDERED: IV NORMAL SALINE 1000ML BAG 1,000 ML IV SCH (07:28)
[2016-12-20] MEDS ORDERED: ONDANSETRON PF 4 MG/2 ML VIAL. IV ONE ×2 (07:30→09:15)
[2016-12-20] MEDS ORDERED: FAMOTIDINE 20 MG/2 ML VIAL IVP ONE (07:30)
--- NOTE | 2016-12-20 07:53 | PHYS DOC ---
Past Medical History Past Medical History: Anxiety, Asthma, Cyclic Vomiting, Depression Additional Past Medical Histor: cyclic vomiting syndrome Past Surgical History: Cholecystectomy Alcohol Use: None Drug Use: Marijuana Adult General Chief Complaint Chief Complaint: ABDOMINAL PAIN HPI HPI Patient is a 21 year old female with cyclic vomiting syndrome and multiple prior admits who presents with nausea, vomiting and abdominal pain that started overnight exactly like prior episodes. She has nonbloody nonbilious emesis x multiple. She notes epigastric abdominal pain. She denies diarrhea, fever or chills, chest pain, cough, dyspnea, dysuria, hematuria, vaginal discharge. Currently on menstrual cycle. Review of Systems Review of Systems Constitutional: Denies fever or chills [] Eyes: Denies change in visual acuity, redness, or eye pain [] HENT: Denies nasal congestion or sore throat [] Respiratory: Denies cough or shortness of breath [] Cardiovascular: No additional information not addressed in HPI [] GI: Denies bloody stools or diarrhea [] : Denies dysuria or hematuria [] Musculoskeletal: Denies back pain or joint pain [] Integument: Denies rash or skin lesions [] Neurologic: Denies headache, focal weakness or sensory changes [] Endocrine: Denies polyuria or polydipsia [] Current Medications Current Medications Current Medications Medications (Trade) Dose Ordered Sig/Arnaldo Start Time Stop Time Status Last Admin Dose Admin Famotidine (Pepcid) 20 mg 1X ONCE 12/20/16 07:30 12/20/16 07:36 DC 12/20/16 08:38 20 MG Morphine Sulfate 4 mg 4 mg PRN Q15MIN PRN 12/20/16 07:30 12/21/16 07:29 12/20/16 08:56 4 MG Ondansetron HCl (Zofran) 4 mg 1X ONCE 12/20/16 07:30 12/20/16 07:36 DC 12/20/16 08:34 4 MG Sodium Chloride (Iv Sodium Chloride 0.9% 1000ml Bag) 1,000 ml @ 1,000 mls/hr Q1H 12/20/16 07:28 12/20/16 08:27 DC 12/20/16 08:31 1,000 MLS/HR Allergies Allergies Allergies Coded Allergies Type Severity Reaction Last Updated Verified coconut Allergy Severe Anaphylaxis 09/04/16 Yes Physical Exam Physical Exam Constitutional: Well developed, well nourished, non-toxic appearance. Appears uncomfortable with active emesis [] HENT: Normocephalic, atraumatic, bilateral external ears normal, oropharynx moist, nose normal. [] Eyes: PERRLA, EOMI. [] Neck: Normal range of motion, supple. [] Cardiovascular:Heart rate regular rhythm [] Lungs & Thorax: Bilateral breath sounds clear to auscultation [] Abdomen: Bowel sounds normal, soft, no tenderness. [] Skin: Warm, dry, no erythema, no rash. [] Back: No tenderness, no CVA tenderness. [] Extremities: No tenderness, ROM intact, no edema. [] Neurologic: Alert and oriented X 3, normal motor function, normal sensory function, no focal deficits noted. [] Psychologic: Affect normal, judgement normal, mood normal. [] Current Patient Data Vital Signs Vital Signs Date Time Temp Pulse Resp B/P Pulse Ox O2 Delivery O2 Flow Rate FiO2 12/20/16 08:56 22 12/20/16 07:29 98.8 107 137/100 97 Room Air 98.8 Lab Values Laboratory Tests Test 12/20/16 07:40 12/20/16 08:20 Urine Collection Type Void Urine Color Yellow Urine Clarity Clear Urine pH 6.0 Urine Specific [place] 1.015 Urine Protein Negativemg/dL (NEG-TRACE) Urine Glucose (UA) Negativemg/dL (NEG) Urine Ketones (Stick) Negativemg/dL (NEG) Urine Blood Moderate (NEG) Urine Nitrite Negative (NEG) Urine Bilirubin Negative (NEG) Urine Urobilinogen Dipstick 0.2mg/dL (0.2 mg/dL) Urine Leukocyte Esterase Small (NEG) Urine RBC 6-10/HPF (0-2) Urine WBC 5-10/HPF (0-4) Urine Squamous Epithelial Cells Many/LPF Urine Bacteria Moderate/HPF (0-FEW) Urine Mucus Marked/LPF White Blood Count 13.1x10^3/uL (4.0-11.0) H Red Blood Count 4.63x10^6/uL (3.50-5.40) Hemoglobin 13.6g/dL (12.0-15.5) Hematocrit 40.8% (36.0-47.0) Mean Corpuscular Volume 88fL (79-100) Mean Corpuscular Hemoglobin 29pg (25-35) Mean Corpuscular Hemoglobin Concent 33g/dL (31-37) Red Cell Distribution Width 13.4% (11.5-14.5) Platelet Count 187x10^3/uL (140-400) Neutrophils (%) (Auto) 80% (31-73) H Lymphocytes (%) (Auto) 15% (24-48) L Monocytes (%) (Auto) 4% (0-9) Eosinophils (%) (Auto) 0% (0-3) Basophils (%) (Auto) 1% (0-3) Neutrophils # (Auto) 10.5x10^3uL (1.8-7.7) H Lymphocytes # (Auto) 1.9x10^3/uL (1.0-4.8) Monocytes # (Auto) 0.5x10^3/uL (0.0-1.1) Eosinophils # (Auto) 0.1x10^3/uL (0.0-0.7) Basophils # (Auto) 0.1x10^3/uL (0.0-0.2) Sodium Level 142mmol/L (136-145) Potassium Level 3.4mmol/L (3.5-5.1) L Chloride Level 105mmol/L (98-107) Carbon Dioxide Level 23mmol/L (21-32) Anion Gap 14 (6-14) Blood Urea Nitrogen 11mg/dL (7-20) Creatinine 0.8mg/dL (0.6-1.0) Estimated GFR (Cockcroft-Gault) 88.9 Glucose Level 150mg/dL (70-99) H Calcium Level 9.1mg/dL (8.5-10.1) Total Bilirubin 0.6mg/dL (0.2-1.0) Direct Bilirubin 0.1mg/dL (0.0-0.2) Aspartate Amino Transferase (AST) 14U/L (15-37) L Alanine Aminotransferase (ALT) 19U/L (14-59) Alkaline Phosphatase 61U/L (46-116) Total Protein 7.7g/dL (6.4-8.2) Albumin 4.1g/dL (3.4-5.0) Lipase 135U/L (73-393) Laboratory Tests 12/20/16 08:20 Laboratory Tests 12/20/16 08:20 Course & Med Decision Making Course & Med Decision Making Pertinent Labs and Imaging studies reviewed. (See chart for details) Laboratory evaluation mostly unremarkable, has mild hypokalemia. Urine results are likely contaminated by menstrual cycle, will await urine culture prior to treatment. Her symptoms are not controlled at this time. Will admit for symptom control of intractable nausea and vomiting. Discussed case with Dr. Ascencio, who will admit. Dragon Disclaimer Dragon Disclaimer This electronic medical record was generated, in whole or in part, using a voice recognition dictation system. Departure Departure Impression: Primary Impression: Intractable nausea and vomiting Disposition: ADMITTED INPATIENT Condition: STABLE Referrals: NO PCP (PCP) Problem Qualifiers Primary Impression: Intractable nausea and vomiting Vomiting type: cyclical vomiting Qualified Code: G43.A1 - Cyclical vomiting , intractable Pierre ROMEO MD Dec 20, 2016 07:52
--- NOTE | 2016-12-20 08:20 | ACF ---
Admit Criteria Forms Admit Criteria Forms Admit Criteria Forms VOMITING Clinical Indications for Admission to Inpatient Care ( Place 'X' for any and all applicable criteria): Admission is indicated for ANY ONE of the following(1)(2)(3): [X]I. Inpatient admission required rather than observation care because of ANY ONE of the following: [ ]i) Hemodynamic instability that is severe or persistent [X]ii) Vomiting that is severe or persistent [ ]iii) Severe electrolyte abnormalities requiring inpatient care [ ]iv) Severe pain requiring acute inpatient management [ ]v) High fever or infection requiring inpatient admission as indicated by ANY ONE of the following(7)(8): [ ]1) Appropriate outpatient or observation care antimicrobial treatment unavailable, not effective, or not feasible [ ]2) Documented bacteremia [ ]3) Temp >104.9 degrees F (40.5 degrees C) (oral) [ ]4) Temp >103.1 degrees F (39.5 C) (oral) or <96.8 degrees F (36 C) (rectal) that does not respond to all emergency treatment measures [ ]vi) Acute renal failure [ ]vii) IV fluid to replace significant ongoing losses (greater than 3 L/m2 per day) [ ]viii) Parenteral nutrition regimen that must be implemented on inpatient basis [ ]ix) Other condition, treatment or monitoring requiring inpatient admission [ ]II. Complete or partial gastrointestinal obstruction [ ]III. Other cause of vomiting requiring hospitalization (eg, poisoning, increased intracranial pressure) [ ]IV. Vomiting due to significant metabolic derangement (eg, severe hypercalcemia, diabetic ketoacidosis) Extended stay beyond goal length of stay may be needed for(1)(4): [ ]a) Severe vomiting [ ]b) Persistent vomiting, vital sign changes, severe electrolyte imbalance , or diagnosed cause of vomiting that requires continued hospitalization (eg, gastrointestinal obstruction , increased intracranial pressure) [ ]c) Surgery to treat identified causes of vomiting (eg, bowel obstruction , intracranial process) [ ]d) Comorbid illness that requires inpatient care (eg, acute heart failure , renal failure) [ ]e) Need for inpatient endoscopy The original [facility] [employer] content created by Heber Mckeon has been revised. The portions of the content which have been revised are identified through the use of italic text or in bold, and Heber Mckeon has neither reviewed nor approved the modified material. All other unmodified content is copyright [facility]. Please see references footnoted in the original [facility] edition 2016 WYATT DOMINGUEZ Dec 20, 2016 08:20
[2016-12-20 08:26] LABS: BILIRUBIN,URINE NEGATIVE (NEG); GLUCOSE,URINE NEGATIVE (NEG); NITRITE,URINE NEGATIVE (NEG); PROTEIN,URINE NEGATIVE (NEG-TRACE); UROBILINOGEN,URINE 0.2 mg/dL (0.2 mg/dL)
[2016-12-20 08:32] LABS: BACTERIA,URINE MODERATE /HPF (0-FEW); SQUAMOUS EPITHELIAL CELL,UR MANY /LPF
[2016-12-20] MEDS: MORPHINE SULFATE 4 MG/ML DISP.SYRIN. IV/SQ PRN ×3 (08:36→09:39)
[2016-12-20 08:37] LABS: BASO # 0.1 x10^3/uL (0.0-0.2); BASO % 1 % (0-3); EOS % 0 % (0-3); HEMATOCRIT 40.8 % (36.0-47.0); HEMOGLOBIN 13.6 g/dL (12.0-15.5); LYMPH # 1.9 x10^3/uL (1.0-4.8); LYMPH % 15 % (24-48); MEAN CORPUSCULAR HEMOGLOBIN 29 pg (25-35); MEAN CORPUSCULAR HGB CONC 33 g/dL (31-37); MEAN CORPUSCULAR VOLUME 88 fL (79-100); MONO % 4 % (0-9); NEUT % 80 % (31-73); PLATELET COUNT 187 x10^3/uL (140-400); RED BLOOD COUNT 4.63 x10^6/uL (3.50-5.40); RED CELL DISTRIBUTION WIDTH 13.4 % (11.5-14.5); WHITE BLOOD COUNT 13.1 x10^3/uL (4.0-11.0)
[2016-12-20 08:43] LABS: CALCIUM 9.1 mg/dL (8.5-10.1); CREATININE 0.8 mg/dL (0.6-1.0); GFR 88.9; POTASSIUM 3.4 mmol/L (3.5-5.1)
[2016-12-20 08:48] LABS: ALBUMIN 4.1 g/dL (3.4-5.0); DIRECT BILIRUBIN 0.1 mg/dL (0.0-0.2); TOTAL BILIRUBIN 0.6 mg/dL (0.2-1.0); TOTAL PROTEIN 7.7 g/dL (6.4-8.2)
[2016-12-20] MEDS ORDERED: ACETAMINOPHEN 325 MG TABLET. PO PRN (09:30)
[2016-12-20 10:30] VITALS: BP 147/118
[2016-12-20] MEDS: MORPHINE SULFATE 4 MG/ML DISP.SYRIN. IV PRN ×2 (12:41→22:51)
[2016-12-20] MEDS: HYDROMORPHONE 2 MG/ML VIAL. IV PRN ×3 (14:41→20:28)
[2016-12-20 15:00] VITALS: BP 102/61
[2016-12-20] MEDS: PROMETHAZINE 25 MG in IV NORMAL SALINE 50ML 50 ML IV PRN ×2 (15:00→21:19)
[2016-12-20] MEDS: ONDANSETRON PF 4 MG/2 ML VIAL. IV PRN (17:52)
[2016-12-20 19:30] VITALS: BP 114/73
--- NOTE | 2016-12-20 22:44 | HP ---
ADMIT DATE: 12/20/2016 CHIEF COMPLAINT: Abdominal pain and vomiting. HISTORY OF PRESENT ILLNESS: The patient is a pleasant 21-year-old female well known to our service. We just discharged a couple of days ago. She has known cyclic vomiting syndrome, once again, she presents with nausea, vomiting and abdominal pain. I discussed the case with ER physician. We are going to admit the patient with cyclic vomiting syndrome. PAST MEDICAL HISTORY: Cyclic vomiting syndrome, cholecystectomy, anxiety depression. ALLERGIES: COCONUTS. FAMILY HISTORY: Coronary artery disease. SOCIAL HISTORY: She does not drink, smoke or take drugs. She has ____. HOME MEDICATIONS: Reviewed, please refer to the MRAD. REVIEW OF SYSTEMS: GENERAL: No history of weight change, weakness or fevers. SKIN: No bruising, hair changes or rashes. EYES: No blurred, double or loss of vision. NOSE AND THROAT: No history of nosebleeds, hoarseness or sore throat. HEART: No history of palpitations, chest pain or shortness of breath on exertion. LUNGS: Denies cough, hemoptysis, wheezing or shortness of breath. GASTROINTESTINAL: She complains of abdominal pain and nausea. GENITOURINARY: No history of frequency, urgency, hesitancy or nocturia. NEUROLOGIC: Denies history of numbness, tingling, tremor or weakness. PSYCHIATRIC: No history of panic, anxiety or depression. ENDOCRINE: No history of heat or cold intolerance, polyuria or polydipsia. EXTREMITIES: Denies muscle weakness, joint pain, pain on walking or stiffness. PHYSICAL EXAMINATION: VITAL SIGNS: Temperature afebrile, pulse 78, respirations 18, blood pressure 144/90. GENERAL: She is alert, cooperative. HEART: Normal S1, S2. LUNGS: Clear. ABDOMEN: Soft. Decreased bowel sounds, tender. EXTREMITIES: No edema. SKIN: No rashes. PSYCHIATRIC: She is depressed. VASCULAR: Good capillary refill. ENDOCRINE: No thyromegaly. LYMPHATICS: No cervical nodes. HEMATOPOIETIC: No bruising. LABORATORY DATA: White count 13, hemoglobin 13.6, platelets 187. Electrolytes: Sodium 142, potassium 3.4, chloride 105, bicarbonate 23, BUN 11, creatinine 0.8, glucose 150, AST low at 14. Urinalysis a small amount of leukocyte esterase and 5-10 white cells. ASSESSMENT AND PLAN: Abdominal pain and cyclic vomiting. The patient has been admitted. We will give her p.r.n. antiemetics, IV fluids. We will start some IV Rocephin for her urinary tract infection. Continue home medicines. CHEYENNE LOYOLA DO DR: BYRON/rusty JOB#: [id number] / [id number]
[2016-12-20 22:54] VITALS: BP 111/61
[2016-12-20] MEDS ORDERED: CEFTRIAXONE SODIUM 1 GM in IV NORMAL SALINE 50ML 50 ML IV SCH (23:00)
[2016-12-21] MEDS: HYDROMORPHONE 2 MG/ML VIAL. IV PRN ×2 (05:51→09:03)
[2016-12-21] MEDS: ONDANSETRON PF 4 MG/2 ML VIAL. IV PRN (05:51)
[2016-12-21 07:21] VITALS: BP 106/49
[2016-12-21] MEDS ORDERED: AMIT50TA PO (09:11)
--- NOTE | 2016-12-21 09:13 | PDOC3 ---
Discharge Summary Visit Information Date of Admission: Dec 20, 2016 Date of Discharge: Dec 21, 2016 Admitting Diagnosis Comment: Cyclic vomiting syndrome (NORMAL GET 10/12) NON diabetic Depression NOS Final Diagnosis Problems Medical Problems: (1) Intractable nausea and vomiting Status: Acute (2) Nausea & vomiting Status: Acute Brief Hospital Course Allergies Allergies Coded Allergies Type Severity Reaction Last Updated Verified coconut Allergy Severe Anaphylaxis 09/04/16 Yes Vital Signs Vital Signs Date Time Temp Pulse Resp B/P Pulse Ox O2 Delivery O2 Flow Rate FiO2 12/21/16 09:03 98 Room Air 12/21/16 07:21 97.9 74 17 106/49 97.9 Lab Results Laboratory Tests Test 12/20/16 07:40 12/20/16 07:50 12/20/16 08:20 Urine Collection Type Void Urine Color Yellow Urine Clarity Clear Urine pH 6.0 Urine Specific Jeff 1.015 Urine Protein Negativemg/dL (NEG-TRACE) Urine Glucose (UA) Negativemg/dL (NEG) Urine Ketones (Stick) Negativemg/dL (NEG) Urine Blood Moderate (NEG) Urine Nitrite Negative (NEG) Urine Bilirubin Negative (NEG) Urine Urobilinogen Dipstick 0.2mg/dL (0.2 mg/dL) Urine Leukocyte Esterase Small (NEG) Urine RBC 6-10/HPF (0-2) Urine WBC 5-10/HPF (0-4) Urine Squamous Epithelial Cells Many/LPF Urine Bacteria Moderate/HPF (0-FEW) Urine Mucus Marked/LPF Bedside Urine HCG, Qualitative Hcg negative (Negative) White Blood Count 13.1x10^3/uL (4.0-11.0) Red Blood Count 4.63x10^6/uL (3.50-5.40) Hemoglobin 13.6g/dL (12.0-15.5) Hematocrit 40.8% (36.0-47.0) Mean Corpuscular Volume 88fL (79-100) Mean Corpuscular Hemoglobin 29pg (25-35) Mean Corpuscular Hemoglobin Concent 33g/dL (31-37) Red Cell Distribution Width 13.4% (11.5-14.5) Platelet Count 187x10^3/uL (140-400) Neutrophils (%) (Auto) 80% (31-73) Lymphocytes (%) (Auto) 15% (24-48) Monocytes (%) (Auto) 4% (0-9) Eosinophils (%) (Auto) 0% (0-3) Basophils (%) (Auto) 1% (0-3) Neutrophils # (Auto) 10.5x10^3uL (1.8-7.7) Lymphocytes # (Auto) 1.9x10^3/uL (1.0-4.8) Monocytes # (Auto) 0.5x10^3/uL (0.0-1.1) Eosinophils # (Auto) 0.1x10^3/uL (0.0-0.7) Basophils # (Auto) 0.1x10^3/uL (0.0-0.2) Sodium Level 142mmol/L (136-145) Potassium Level 3.4mmol/L (3.5-5.1) Chloride Level 105mmol/L (98-107) Carbon Dioxide Level 23mmol/L (21-32) Anion Gap 14 (6-14) Blood Urea Nitrogen 11mg/dL (7-20) Creatinine 0.8mg/dL (0.6-1.0) Estimated GFR (Cockcroft-Gault) 88.9 Glucose Level 150mg/dL (70-99) Calcium Level 9.1mg/dL (8.5-10.1) Total Bilirubin 0.6mg/dL (0.2-1.0) Direct Bilirubin 0.1mg/dL (0.0-0.2) Aspartate Amino Transf (AST/SGOT) 14U/L (15-37) Alanine Aminotransferase (ALT/SGPT) 19U/L (14-59) Alkaline Phosphatase 61U/L (46-116) Total Protein 7.7g/dL (6.4-8.2) Albumin 4.1g/dL (3.4-5.0) Lipase 135U/L (73-393) Brief Hospital Course Ms. Donis is a 21 old female known to us for cyclic vomiting, Mild hypokal 3,.4, non diabetic. GET in sep 2016 was normal. BEtter after overnight stay, HAs seen a lot of GI MDs in past - Thoought to be in chasity mind and so elavil started and that controls her sxs. CLaims she has been vomiting since age 1. Lost insurance so wasnt able to refill elavil,. Wrote her rx today Pt seen and examined DispO, home Rx elavil 50 qhs consults: none Proc; none Discharge Information Condition at Discharge: Improved, Stable Disposition/Orders: D/C to Home Miscellaneous Medications Info (No Known Medications Prior To Admisstion) 1 EACH MC (Reported) GEOVANNI PENNINGTON MD Dec 21, 2016 09:13
[2016-12-21 11:04] VITALS: BP 110/59
== END 2016-12-21 12:00 | disposition home or self-care (01) | DRG 690 ==
LOC: ER 07:17 → 5 SOUTH 09:00
PROVIDERS: ADMIT Internal Medicine; ATTEND Internal Medicine
DX: N39.0 Urinary tract infection, site not specified (principal); G43.A0 Cyclical vomiting, in migraine, not intractable; F32.9 Major depressive disorder, single episode, unspecified; J45.909 Unspecified asthma, uncomplicated; F12.90 Cannabis use, unspecified, uncomplicated; F41.8 Other specified anxiety disorders; Z82.49 Family history of ischemic heart disease and other diseases of the circulatory system; Z90.49 Acquired absence of other specified parts of digestive tract; Z91.018 Allergy to other foods
CPT/HCPCS: 36415; 80048; 80076; 81001; 81025; 83690; 85027; 87086; 96361; 96374; 96375; 96376; J0696; J1170; J2270; J2405; J2550; J7030; S0028; 99285-25

== ENCOUNTER 2017-01-20 11:38 | Emergency (ER) | payer SELFPAY ==
[~2017-01-20] VITALS: Ht 162.6 cm; Wt 68.0 kg
[~2017-01-20 11:38] MED LIST changes: +AMIT50TA PO
[2017-01-20 12:59] LABS: BASO % 1 % (0-3); EOS % 2 % (0-3); HEMATOCRIT 43.3 % (36.0-47.0); HEMOGLOBIN 14.7 g/dL (12.0-15.5); LYMPH # 2.4 x10^3/uL (1.0-4.8); LYMPH % 45 % (24-48); MEAN CORPUSCULAR HEMOGLOBIN 29 pg (25-35); MEAN CORPUSCULAR HGB CONC 34 g/dL (31-37); MEAN CORPUSCULAR VOLUME 86 fL (79-100); MONO % 12 % (0-9); NEUT % 41 % (31-73); PLATELET COUNT 154 x10^3/uL (140-400); RED BLOOD COUNT 5.01 x10^6/uL (3.50-5.40); RED CELL DISTRIBUTION WIDTH 13.1 % (11.5-14.5); WHITE BLOOD COUNT 5.3 x10^3/uL (4.0-11.0)
[2017-01-20] MEDS ORDERED: DIPHENHYDRAMINE 50 MG/ML VIAL. IVP ONE (13:00)
[2017-01-20] MEDS ORDERED: IV RINGERS,LACTATED 1000ML 1,000 ML IV SCH (13:00)
[2017-01-20] MEDS ORDERED: LORAZEPAM 2 MG/ML VIAL. IV ONE (13:00)
[2017-01-20] MEDS ORDERED: HYDROMORPHONE 2 MG/ML VIAL. IV ONE (13:00)
[2017-01-20] MEDS ORDERED: PANTOPRAZOLE IV PUSH 40 MG VIAL. IVP ONE (13:00)
[2017-01-20 13:11] LABS: CALCIUM 9.7 mg/dL (8.5-10.1); CREATININE 0.8 mg/dL (0.6-1.0); GFR 88.9; POTASSIUM 3.1 mmol/L (3.5-5.1)
[2017-01-20 13:16] LABS: ALBUMIN 4.4 g/dL (3.4-5.0); TOTAL PROTEIN 8.4 g/dL (6.4-8.2)
[2017-01-20 13:17] LABS: ALBUMIN/GLOBULIN RATIO 1.1 (1.0-1.7)
--- NOTE | 2017-01-20 14:57 | PHYS DOC ---
Past Medical History Past Medical History: Anxiety, Asthma, Cyclic Vomiting, Depression Additional Past Medical Histor: cyclic vomiting syndrome Past Surgical History: Cholecystectomy Alcohol Use: None Drug Use: Marijuana Adult General Chief Complaint Chief Complaint: NAUSEA/VOMITING/DIARRHA HPI HPI Patient is a 21 year old female with a history of recurrent abdominal pain and vomiting brought in by a family member with a complaint of abdominal pain, nausea and vomiting since yesterday. This started last night at about 7:30. There is no difference from previous episodes that she's had. She denies . Denies blood in her vomit. She states that usually amitriptyline daily helps her symptoms but she ran out of it about 2 days ago. She has no primary care physician and no one to write prescriptions for her. She states usually when she comes to the ED they give her IV fluids, IV Protonix, Ativan, Dilaudid and Benadryl. This episode is the same as previous episodes. Review of Systems Review of Systems Constitutional: Denies fever or chills [] Eyes: Denies change in visual acuity, redness, or eye pain [] HENT: Denies nasal congestion or sore throat [] Respiratory: Denies cough or shortness of breath [] Cardiovascular: Denies chest pain GI: As in history of present illness : Denies dysuria or hematuria [] Musculoskeletal: Denies back pain or joint pain [] Integument: Denies rash or skin lesions [] Neurologic: Denies headache, focal weakness or sensory changes [] Current Medications Current Medications Current Medications Medications (Trade) Dose Ordered Sig/Arnaldo Start Time Stop Time Status Last Admin Dose Admin Diphenhydramine HCl (Benadryl) 25 mg 1X ONCE 01/20/17 13:00 01/20/17 13:01 DC 01/20/17 12:49 25 MG Hydromorphone HCl (Dilaudid) 2 mg 1X ONCE 01/20/17 13:00 01/20/17 13:01 DC 01/20/17 12:50 2 MG Lactated Ringer's (Iv Lactated Ringers) 1,000 ml @ 1,000 mls/hr Q1H 01/20/17 13:00 01/20/17 13:59 DC 01/20/17 12:57 1,000 MLS/HR Lorazepam (Ativan) 2 mg 1X ONCE 01/20/17 13:00 01/20/17 13:01 DC 01/20/17 12:54 2 MG Pantoprazole Sodium (Protonix Vial) 40 mg 1X ONCE 01/20/17 13:00 01/20/17 13:01 DC 01/20/17 12:54 40 MG Allergies Allergies Allergies Coded Allergies Type Severity Reaction Last Updated Verified coconut Allergy Severe Anaphylaxis 09/04/16 Yes Physical Exam Physical Exam Constitutional: Well developed, well nourished, crying, hyperventilating, retching, occasionally vomiting some yellow liquid into an emesis basin HENT: Normocephalic, atraumatic, bilateral external ears normal, nose normal. [] Eyes: conjunctiva normal, no discharge. [] Neck: Normal range of motion, no stridor. [] Cardiovascular:Heart rate regular rhythm, no murmur [] Lungs & Thorax: Bilateral breath sounds clear to auscultation [] Abdomen: Bowel sounds normal, soft, no tenderness, no masses, no pulsatile masses. [] Skin: Warm, dry, no erythema, no rash. [] Extremities: No tenderness, no cyanosis, no clubbing, ROM intact, no edema. [] Neurologic: Alert and oriented X 3, normal motor function, normal sensory function, no focal deficits noted. [] Current Patient Data Vital Signs Vital Signs Date Time Temp Pulse Resp B/P Pulse Ox O2 Delivery O2 Flow Rate FiO2 01/20/17 15:00 52 13 97/52 98 Room Air 01/20/17 11:45 98.3 98.3 Lab Values Laboratory Tests Test 01/20/17 11:50 White Blood Count 5.3x10^3/uL (4.0-11.0) Red Blood Count 5.01x10^6/uL (3.50-5.40) Hemoglobin 14.7g/dL (12.0-15.5) Hematocrit 43.3% (36.0-47.0) Mean Corpuscular Volume 86fL (79-100) Mean Corpuscular Hemoglobin 29pg (25-35) Mean Corpuscular Hemoglobin Concent 34g/dL (31-37) Red Cell Distribution Width 13.1% (11.5-14.5) Platelet Count 154x10^3/uL (140-400) Neutrophils (%) (Auto) 41% (31-73) Lymphocytes (%) (Auto) 45% (24-48) Monocytes (%) (Auto) 12% (0-9) H Eosinophils (%) (Auto) 2% (0-3) Basophils (%) (Auto) 1% (0-3) Neutrophils # (Auto) 2.2x10^3uL (1.8-7.7) Lymphocytes # (Auto) 2.4x10^3/uL (1.0-4.8) Monocytes # (Auto) 0.6x10^3/uL (0.0-1.1) Eosinophils # (Auto) 0.1x10^3/uL (0.0-0.7) Basophils # (Auto) 0.0x10^3/uL (0.0-0.2) Sodium Level 141mmol/L (136-145) Potassium Level 3.1mmol/L (3.5-5.1) L Chloride Level 104mmol/L (98-107) Carbon Dioxide Level 24mmol/L (21-32) Anion Gap 13 (6-14) Blood Urea Nitrogen 8mg/dL (7-20) Creatinine 0.8mg/dL (0.6-1.0) Estimated GFR (Cockcroft-Gault) 88.9 BUN/Creatinine Ratio 10 (6-20) Glucose Level 136mg/dL (70-99) H Calcium Level 9.7mg/dL (8.5-10.1) Total Bilirubin 1.0mg/dL (0.2-1.0) Aspartate Amino Transferase (AST) 24U/L (15-37) Alanine Aminotransferase (ALT) 29U/L (14-59) Alkaline Phosphatase 59U/L (46-116) Total Protein 8.4g/dL (6.4-8.2) H Albumin 4.4g/dL (3.4-5.0) Albumin/Globulin Ratio 1.1 (1.0-1.7) Lipase 87U/L (73-393) Laboratory Tests 01/20/17 11:50 Laboratory Tests 01/20/17 11:50 EKG EKG [] Radiology/Procedures Radiology/Procedures [] Course & Med Decision Making Course & Med Decision Making Pertinent Labs and Imaging studies reviewed. (See chart for details) 21-year-old female with a history of recurrent episodes of abdominal pain and vomiting, presents with an episode. Labs unremarkable except for some hypokalemia, test negative. She was given a liter of fluids, IV meds for her symptoms. She felt much better and was able to stop vomiting after 1 round of medications. She felt comfortable with discharge. I discussed potassium replacement with her and she would like to go home and eat some bananas, she rather not have oral potassium at this time, her stomach still feels like it's not quite back to normal. I gave her phone numbers of [facility] clinics for primary medical care. [] Dragon Disclaimer Dragon Disclaimer This electronic medical record was generated, in whole or in part, using a voice recognition dictation system. Departure Departure Impression: Primary Impression: Intractable nausea and vomiting Disposition: 01 HOME, SELF-CARE Condition: STABLE Referrals: NO PCP (PCP) Patient Instructions: Nausea and Vomiting, [id number] MARIA GUADALUPE LARSON MD Jan 20, 2017 14:57
[2017-01-20 15:00] VITALS: BP 97/52
== END 2017-01-20 15:15 | disposition home or self-care (01) ==
LOC: ER 11:38
DX: R10.9 Unspecified abdominal pain (principal); R11.2 Nausea with vomiting, unspecified; J45.909 Unspecified asthma, uncomplicated; E87.6 Hypokalemia; F12.10 Cannabis abuse, uncomplicated; Z91.09 Other allergy status, other than to drugs and biological substances
CPT/HCPCS: 36415; 80053; 83690; 85027; 96361; 96374; 96375; 99284; C9113; J1170; J1200; J2060; J7120

== ENCOUNTER 2017-01-26 08:47 | Observation (INO) | payer SELFPAY ==
[~2017-01-26] VITALS: Ht 162.6 cm; Wt 68.0 kg
[2017-01-26] MEDS ORDERED: IV NORMAL SALINE 1000ML BAG 1,000 ML IV ONE ×2 (09:30→10:30)
[2017-01-26] MEDS: PROMETHAZINE 12.5 MG in IV NORMAL SALINE 50ML 50 ML IV PRN ×2 (09:40→16:11)
[2017-01-26 09:41] LABS: BASO % 1 % (0-3); EOS % 1 % (0-3); HEMATOCRIT 40.8 % (36.0-47.0); LYMPH # 2.1 x10^3/uL (1.0-4.8); LYMPH % 31 % (24-48); MEAN CORPUSCULAR HEMOGLOBIN 29 pg (25-35); MEAN CORPUSCULAR HGB CONC 34 g/dL (31-37); MEAN CORPUSCULAR VOLUME 85 fL (79-100); MONO % 6 % (0-9); NEUT % 61 % (31-73); PLATELET COUNT 186 x10^3/uL (140-400); RED CELL DISTRIBUTION WIDTH 13.1 % (11.5-14.5); WHITE BLOOD COUNT 6.8 x10^3/uL (4.0-11.0)
[2017-01-26 09:44] LABS: BARBITURATES NEG (NEG); BENZODIAZEPINES POS (NEG); CANNABINOIDS POS (NEG); COCAINE NEG (NEG); METHADONE NEG (NEG); OPIATES NEG (NEG); PHENCYCLIDINE NEG (NEG)
[2017-01-26 09:45] LABS: ETHANOL, URINE NEG (NEG)
[2017-01-26] MEDS ORDERED: DIPHENHYDRAMINE 50 MG/ML VIAL. IVP ONE (09:45)
[2017-01-26] MEDS ORDERED: HALOPERIDOL LACTATE 5 MG/ML VIAL. IVP ONE (09:45)
[2017-01-26] MEDS ORDERED: LORAZEPAM 2 MG/ML VIAL. IV ONE (09:45)
[2017-01-26 09:49] LABS: CALCIUM 9.2 mg/dL (8.5-10.1); CREATININE 0.9 mg/dL (0.6-1.0); GFR 77.6; POTASSIUM 3.2 mmol/L (3.5-5.1)
[2017-01-26 09:54] LABS: ALBUMIN 4.3 g/dL (3.4-5.0); ALBUMIN/GLOBULIN RATIO 1.2 (1.0-1.7); TOTAL BILIRUBIN 0.4 mg/dL (0.2-1.0); TOTAL PROTEIN 7.8 g/dL (6.4-8.2)
--- NOTE | 2017-01-26 10:23 | PHYS DOC ---
Past Medical History Past Medical History: Anxiety, Asthma, Cyclic Vomiting, Depression Additional Past Medical Histor: cyclic vomiting syndrome Past Surgical History: Cholecystectomy Alcohol Use: None Drug Use: Marijuana Adult General Chief Complaint Chief Complaint: NAUSEA/VOMITING/DIARRHA HPI HPI 21-year-old female who has history of cyclical vomiting syndrome who was recently admitted to the hospital for hypokalemia and cyclical vomiting syndrome who presents again with several hours of consistent system vomiting. Patient states she has history of anxiety and has been prescribed amitriptyline for her symptoms before. She states she currently does not have a doctor and has not been able to follow up for her vomiting syndrome. She denies any recent drug use or marijuana use. She states she has significant abdominal pain secondary to retching. She has not been able to tolerate anything by mouth since her symptoms started last evening. She denies any significant diarrhea. She states she is not prescribe anything prior to her last discharge. She follows up at a [facility] but is not yet been able to be seen. Review of Systems Review of Systems Constitutional: Denies fever or chills [] Eyes: Denies change in visual acuity, redness, or eye pain [] HENT: Denies nasal congestion or sore throat [] Respiratory: Denies cough or shortness of breath [] Cardiovascular: No additional information not addressed in HPI [] GI: Denies abdominal pain, nausea, vomiting, bloody stools or diarrhea [] : Denies dysuria or hematuria [] Musculoskeletal: Denies back pain or joint pain [] Integument: Denies rash or skin lesions [] Neurologic: Denies headache, focal weakness or sensory changes [] Endocrine: Denies polyuria or polydipsia [] Current Medications Current Medications Current Medications Medications (Trade) Dose Ordered Sig/Arnaldo Start Time Stop Time Status Last Admin Dose Admin Diphenhydramine HCl (Benadryl) 50 mg 1X ONCE 01/26/17 09:45 01/26/17 09:46 DC 01/26/17 09:44 50 MG Haloperidol Lactate (Haldol) 5 mg 1X ONCE 01/26/17 09:45 01/26/17 09:46 DC 01/26/17 09:47 5 MG Lorazepam (Ativan) 2 mg 1X ONCE 01/26/17 09:45 01/26/17 09:46 DC 01/26/17 09:50 2 MG Metoclopramide HCl (Reglan) 10 mg 1X ONCE 01/26/17 10:45 01/26/17 10:46 DC 01/26/17 11:04 10 MG Pantoprazole Sodium (Protonix Vial) 40 mg 1X ONCE 01/26/17 10:45 01/26/17 10:46 DC 01/26/17 11:06 40 MG Potassium Chloride 40 meq 40 meq 1X ONCE 01/26/17 10:30 01/26/17 10:31 DC Promethazine HCl/ Sodium Chloride (Phenergan/Iv Sodium Chloride 0.9% 50ml) 50.5 ml @ 151.5 mls/ hr PRN Q6HRS PRN 01/26/17 09:15 01/26/17 09:40 151.5 MLS/HR Sodium Chloride (Iv Sodium Chloride 0.9% 1000ml Bag) 1,000 ml @ 1,000 mls/hr 1X ONCE 01/26/17 10:30 01/26/17 11:29 DC 01/26/17 11:40 1,000 MLS/HR Allergies Allergies Allergies Coded Allergies Type Severity Reaction Last Updated Verified coconut Allergy Severe Anaphylaxis 01/22/17 Yes Physical Exam Physical Exam Constitutional: Well developed, well nourished, no acute distress, non-toxic appearance. [] HENT: Normocephalic, atraumatic, bilateral external ears normal, oropharynx moist, no oral exudates, nose normal. [] Eyes: PERRLA, EOMI, conjunctiva normal, no discharge. [] Neck: Normal range of motion, no tenderness, supple, no stridor. [] Cardiovascular:Heart rate regular rhythm, no murmur [] Lungs & Thorax: Bilateral breath sounds clear to auscultation [] Abdomen: Bowel sounds normal, soft, no tenderness, no masses, no pulsatile masses. [] Skin: Warm, dry, no erythema, no rash. [] Back: No tenderness, no CVA tenderness. [] Extremities: No tenderness, no cyanosis, no clubbing, ROM intact, no edema. [] Neurologic: Alert and oriented X 3, normal motor function, normal sensory function, no focal deficits noted. [] Psychologic: Affect normal, judgement normal, mood normal. [] Current Patient Data Vital Signs Vital Signs Date Time Temp Pulse Resp B/P Pulse Ox O2 Delivery O2 Flow Rate FiO2 01/26/17 11:30 110 129/77 98 Room Air 01/26/17 11:00 26 01/26/17 09:20 97.5 97.5 Lab Values Laboratory Tests Test 01/26/17 08:26 01/26/17 09:10 01/26/17 09:20 POC Urine HCG, Qualitative Hcg negative (Negative) Urine Opiates Screen Neg (NEG) Urine Methadone Screen Neg (NEG) Urine Barbiturates Neg (NEG) Urine Phencyclidine Screen Neg (NEG) Urine Amphetamine/Methamphetamine Neg (NEG) Urine Benzodiazepines Screen Pos (NEG) Urine Cocaine Screen Neg (NEG) Urine Cannabinoids Screen Pos (NEG) Urine Ethyl Alcohol Neg (NEG) White Blood Count 6.8x10^3/uL (4.0-11.0) Red Blood Count 4.80x10^6/uL (3.50-5.40) Hemoglobin 14.0g/dL (12.0-15.5) Hematocrit 40.8% (36.0-47.0) Mean Corpuscular Volume 85fL (79-100) Mean Corpuscular Hemoglobin 29pg (25-35) Mean Corpuscular Hemoglobin Concent 34g/dL (31-37) Red Cell Distribution Width 13.1% (11.5-14.5) Platelet Count 186x10^3/uL (140-400) Neutrophils (%) (Auto) 61% (31-73) Lymphocytes (%) (Auto) 31% (24-48) Monocytes (%) (Auto) 6% (0-9) Eosinophils (%) (Auto) 1% (0-3) Basophils (%) (Auto) 1% (0-3) Neutrophils # (Auto) 4.1x10^3uL (1.8-7.7) Lymphocytes # (Auto) 2.1x10^3/uL (1.0-4.8) Monocytes # (Auto) 0.4x10^3/uL (0.0-1.1) Eosinophils # (Auto) 0.1x10^3/uL (0.0-0.7) Basophils # (Auto) 0.0x10^3/uL (0.0-0.2) Sodium Level 142mmol/L (136-145) Potassium Level 3.2mmol/L (3.5-5.1) L Chloride Level 104mmol/L (98-107) Carbon Dioxide Level 22mmol/L (21-32) Anion Gap 16 (6-14) H Blood Urea Nitrogen 9mg/dL (7-20) Creatinine 0.9mg/dL (0.6-1.0) Estimated GFR (Cockcroft-Gault) 77.6 BUN/Creatinine Ratio 10 (6-20) Glucose Level 146mg/dL (70-99) H Calcium Level 9.2mg/dL (8.5-10.1) Total Bilirubin 0.4mg/dL (0.2-1.0) Aspartate Amino Transferase (AST) 15U/L (15-37) Alanine Aminotransferase (ALT) 24U/L (14-59) Alkaline Phosphatase 53U/L (46-116) Total Protein 7.8g/dL (6.4-8.2) Albumin 4.3g/dL (3.4-5.0) Albumin/Globulin Ratio 1.2 (1.0-1.7) Laboratory Tests 01/26/17 09:20 Laboratory Tests 01/26/17 09:20 EKG EKG [] Radiology/Procedures Radiology/Procedures [] Course & Med Decision Making Course & Med Decision Making Pertinent Labs and Imaging studies reviewed. (See chart for details) 21-year-old female who has history of intractable nausea and vomiting will be given IV fluids. A dose of IV Phenergan, IV Haldol, IV Ativan and IV Benadryl were given. Patient appears more relaxed and is not actively vomiting. Her bloodwork reveals a serum potassium of 3.2 which is significantly improved from her last hospital stay. Her urine drug screen was positive for cannabinoid. Patient was not willing to tolerate by mouth potassium. She remains persistently tachycardic despite receiving several liters of fluids. She states she still intractable with her nausea and vomiting. She was additionally given IV Protonix and IV Reglan and still feels persistently nauseated. She is requesting narcotics but these are going to be withheld at this time as she is displaying drug-seeking behavior. I did offer her an observation stay for her intractability with her nausea and vomiting. I discussed the need to admit the patient with the hospitalist Dr. Phan who agreed to accept the patient for further evaluation treatment. Dragon Disclaimer Dragon Disclaimer This electronic medical record was generated, in whole or in part, using a voice recognition dictation system. Departure Departure Impression: Primary Impression: Intractable nausea and vomiting Disposition: ADMITTED INPATIENT Admitting Physician: Rah Phan Condition: STABLE Referrals: NO PCP (PCP) LUIS F ZAVALA DO Jan 26, 2017 10:22
[2017-01-26] MEDS ORDERED: POTASSIUM CHLORIDE 20 MEQ TABLET.ER. PO ONE (10:30)
[2017-01-26] MEDS ORDERED: PANTOPRAZOLE IV PUSH 40 MG VIAL. IVP ONE (10:45)
[2017-01-26] MEDS ORDERED: METOCLOPRAMIDE HCL 10 MG/2 ML VIAL. IV ONE (10:45)
[2017-01-26 14:00] VITALS: BP 145/88
[2017-01-26] MEDS: IV NORMAL SALINE 1000ML BAG 1,000 ML IV SCH ×2 (14:11→22:17)
[2017-01-26] MEDS: ONDANSETRON PF 4 MG/2 ML VIAL. IV PRN ×2 (14:11→22:12)
[2017-01-26 14:52] VITALS: BP 138/76
[2017-01-26] MEDS ORDERED: hydrALAZINE 20 MG/ML VIAL. IVP PRN ×2 (15:00→17:30)
[2017-01-26] MEDS ORDERED: ONDANSETRON PF 4 MG/2 ML VIAL. IV PRN ×2 (15:00→17:30)
[2017-01-26] MEDS ORDERED: ACETAMINOPHEN 325 MG TABLET. PO PRN ×2 (15:00→17:30)
[2017-01-26] MEDS ORDERED: ALBUTEROL SULFATE 2.5 MG/3 ML NEBU. NEB PRN ×2 (15:00→17:30)
[2017-01-26] MEDS: HYDROCODONE/APAP 5/325MG TABLET. PO PRN (16:12)
[2017-01-26] MEDS ORDERED: HYDROCODONE/APAP 5/325MG TABLET. PO PRN (17:30)
[2017-01-26 19:00] VITALS: BP 142/99
--- NOTE | 2017-01-26 19:24 | ACF ---
Admission Forms Criteria VOMITING Clinical Indications for Admission to Inpatient Care ( Place 'X' for any and all applicable criteria): Admission is indicated for 1 or more of the following(1)(2)(3): [ ]I. Complete or partial gastrointestinal obstruction [ ]II. Vomiting due to significant metabolic derangement (eg, severe hypercalcemia, diabetic ketoacidosis) [ ]III. Other cause of vomiting requiring hospitalization (eg, poisoning, increased intracranial pressure) [X]IV. Inpatient admission required rather than observation care because of 1 or more of the following [ ]i) Hemodynamic instability [X]ii) Vomiting that is severe or persistent indicated by 1 or more of the following 1) Numerous episodes of vomiting in past 24hours (eg, every 1 to 2 hours) 2) Suggests severe underlying cause or complication (eg , projectile, feculent, bilious, coffee ground, bloody) 3) Appropriate antiemetic treatment (eg, repeated oral or parenteral dosing) does not sufficiently reduce vomiting within 12 to 24 hours of treatment [X]4) Treatment regimen necessary to adequately control vomiting requires inpatient level of care (eg, not immediately available in outpatient setting) [ ]iii) Severe electrolyte abnormalities requiring inpatient care [ ]iv) Severe pain requiring acute inpatient management( Continuous or frequent (eg, every 2 to 4 hours) parental analgesics or analgesic regimen that can only be performed or initiated in inpatient setting) [ ]v) High fever or infection requiring inpatient admission as indicated by 1 or more of the following(7)(8): [ ]1) Appropriate outpatient or observation care antimicrobial treatment unavailable, not effective, or not feasible [ ]2) Documented bacteremia [ ]3) Temp >104.9 degrees F (40.5 degrees C) (oral) [ ]4) Temp >103.1 degrees F (39.5 C) (oral) or <96.8 degrees F (36 C) (rectal) that does not respond to all emergency treatment measures [ ]vi) Acute renal failure [ ]vii) IV fluid required rather than oral rehydration to replace significant on going losses (greater than 3 L/m2 per day) [ ]viii) Parenteral nutrition regimen that must be implemented on inpatient basis [ ]ix) Other condition, treatment or monitoring requiring inpatient admission Extended stay beyond goal length of stay may be needed for(1)(4): [ ]a) Severe vomiting [ ]b) Persistent vomiting, vital sign changes, severe electrolyte imbalance , or diagnosed cause of vomiting that requires continued hospitalization (eg, gastrointestinal obstruction , increased intracranial pressure) [ ]c) Surgery to treat identified causes of vomiting (eg, bowel obstruction , intracranial process) [ ]d) Comorbid illness that requires inpatient care (eg, acute heart failure , renal failure) [ ]e) Need for inpatient endoscopy The original [employer] content created by [employer] has been revised. The portions of the content which have been revised are identified through the use of italic text or in bold, and [facility] has neither reviewed nor approved the modified material. All other unmodified content is copyright [employer]. Please see references footnoted in the original [facility] edition 2016 Admission Criteria Met?: Yes VALENTIN GUERRERO Jan 26, 2017 19:24
[2017-01-26] MEDS: MORPHINE SULFATE 2 MG/ML DISP.SYRIN. IV PRN (22:16)
--- NOTE | 2017-01-26 22:39 | HP ---
ADMIT DATE: 01/26/2017 CHIEF COMPLAINT: Intractable nausea and vomiting. HISTORY OF PRESENT ILLNESS: A 21-year-old female patient with cyclical vomiting syndrome, who presented to the hospital with persistent vomiting. The patient has been admitted to the hospital several times for similar complaints. She has a history of anxiety and she was on amitriptyline for her symptoms before. The patient states that she is not able to find a doctor, which made her come to the hospital. She had a workup by Gastroenterology in the past and I think that her EGD and other workups were negative. At the time, she is admitted for electrolyte replacement and dehydration. PAST MEDICAL HISTORY: Anxiety, cyclical vomiting, depression, and cholecystectomy. PERSONAL HISTORY: No smoking or TAC usage. No alcohol. No drug abuse. FAMILY HISTORY: Not significant. ALLERGIES: COCONUT. REVIEW OF SYSTEMS AND PHYSICAL EXAMINATION: Please see my electronic H and P. LABORATORY FINDINGS: CBC within normal limits. Chemistry: Potassium is 3.2, sodium is 142, carbon dioxide 22, anion gap is 16, and creatinine is within normal limits. ASSESSMENT: 1. Intractable nausea and vomiting. 2. Dehydration. 3. Hypokalemia. 4. History of cyclical vomiting. 5. Anxiety and depression. PLAN: 1. The patient has been admitted for electrolyte replacement. Abdominal pain has been controlled with IV Morphine 2 mg q. 2h. 2. Potassium has been replaced. Recheck electrolytes. 3. Urine drug screen is positive for cannabinoids and benzodiazepines. 4. She has been placed on observation. If symptoms are intractable, changer the admission status to change her to inpatient. 5. Prognosis is guarded. LIANG ORDOÑEZ MD DR: LEIGH/rusty JOB#: [id number] / [id number] [place]
[2017-01-26 23:00] VITALS: BP 139/94
[2017-01-27 03:00] VITALS: BP 93/45
[2017-01-27] MEDS: MORPHINE SULFATE 2 MG/ML DISP.SYRIN. IV PRN ×2 (04:40→09:58)
[2017-01-27 05:14] LABS: CALCIUM 8.1 mg/dL (8.5-10.1); CREATININE 0.7 mg/dL (0.6-1.0); GFR 103.7; POTASSIUM 3.1 mmol/L (3.5-5.1)
[2017-01-27] MEDS: ONDANSETRON PF 4 MG/2 ML VIAL. IV PRN ×2 (06:12→20:05)
[2017-01-27] MEDS: IV NORMAL SALINE 1000ML BAG 1,000 ML IV SCH (06:13)
[2017-01-27 06:34] LABS: BASO % 0 % (0-3); EOS % 0 % (0-3); HEMATOCRIT 34.7 % (36.0-47.0); LYMPH # 1.6 x10^3/uL (1.0-4.8); LYMPH % 21 % (24-48); MEAN CORPUSCULAR HEMOGLOBIN 30 pg (25-35); MEAN CORPUSCULAR HGB CONC 35 g/dL (31-37); MEAN CORPUSCULAR VOLUME 86 fL (79-100); MONO % 6 % (0-9); NEUT % 72 % (31-73); PLATELET COUNT 158 x10^3/uL (140-400); RED BLOOD COUNT 4.03 x10^6/uL (3.50-5.40); WHITE BLOOD COUNT 7.6 x10^3/uL (4.0-11.0)
[2017-01-27 07:00] VITALS: BP 153/100
[2017-01-27] MEDS: HYDROCODONE/APAP 5/325MG TABLET. PO PRN ×2 (07:50→20:53)
[2017-01-27] MEDS: PROMETHAZINE 12.5 MG in IV NORMAL SALINE 50ML 50 ML IV PRN ×2 (10:00→23:10)
[2017-01-27 11:00] VITALS: BP 107/64
[2017-01-27] MEDS ORDERED: CALCIUM CARBONATE 500 MG TAB.CHEW PO PRN (11:15)
[2017-01-27] MEDS: MORPHINE SULFATE 4 MG/ML DISP.SYRIN. IV PRN ×5 (13:03→23:10)
[2017-01-27] MEDS: POTASSIUM CHLORIDE 10MEQ 100 ML IV SCH ×4 (13:04→17:54)
--- NOTE | 2017-01-27 14:22 | PDOC ---
PROGRESS NOTES Chief Complaint Chief Complaint Intractable N/V Cyclic vomiting syndrome Anxiety Depression Cannabinoid use History of Present Illness History of Present Illness Patient seen and evaluated at bedside. No acute events overnight. Patient continues to be nauseous with some abdominal discomfort, but emesis has subsided for now. She is able to be up and walking to the bathroom. Vitals Vitals Vital Signs Date Time Temp Pulse Resp B/P Pulse Ox O2 Delivery O2 Flow Rate FiO2 01/27/17 13:43 Room Air 01/27/17 11:00 97.4 62 16 107/64 97 97.4 Physical Exam General: Alert, Oriented X3, Cooperative, No acute distress Heart: Regular rate, Normal S1 Lungs: Clear, Other (negative chest retractions. ) Abdomen: Normal bowel sounds, Soft, Other (negative peritoneal signs. minimal epigastric tenderness upon palpation) Extremities: No clubbing, No cyanosis, No edema Skin: No rashes, No breakdown Labs LABS Laboratory Tests Test 01/27/17 03:53 White Blood Count 7.6x10^3/uL (4.0-11.0) Red Blood Count 4.03x10^6/uL (3.50-5.40) Hemoglobin 12.0g/dL (12.0-15.5) Hematocrit 34.7% (36.0-47.0) Mean Corpuscular Volume 86fL (79-100) Mean Corpuscular Hemoglobin 30pg (25-35) Mean Corpuscular Hemoglobin Concent 35g/dL (31-37) Red Cell Distribution Width 13.0% (11.5-14.5) Platelet Count 158x10^3/uL (140-400) Neutrophils (%) (Auto) 72% (31-73) Lymphocytes (%) (Auto) 21% (24-48) Monocytes (%) (Auto) 6% (0-9) Eosinophils (%) (Auto) 0% (0-3) Basophils (%) (Auto) 0% (0-3) Neutrophils # (Auto) 5.5x10^3uL (1.8-7.7) Lymphocytes # (Auto) 1.6x10^3/uL (1.0-4.8) Monocytes # (Auto) 0.5x10^3/uL (0.0-1.1) Eosinophils # (Auto) 0.0x10^3/uL (0.0-0.7) Basophils # (Auto) 0.0x10^3/uL (0.0-0.2) Sodium Level 140mmol/L (136-145) Potassium Level 3.1mmol/L (3.5-5.1) Chloride Level 105mmol/L (98-107) Carbon Dioxide Level 25mmol/L (21-32) Anion Gap 10 (6-14) Blood Urea Nitrogen 4mg/dL (7-20) Creatinine 0.7mg/dL (0.6-1.0) Estimated GFR (Cockcroft-Gault) 103.7 Glucose Level 100mg/dL (70-99) Calcium Level 8.1mg/dL (8.5-10.1) Review of Systems Review of Systems (+) nausea (+) abdominal pain (+) general malaise Denies chest pain, sob, vomiting/diarrhea, dysuria, or fever/chills. Assessment and Plan Assessmemt and Plan Problems Medical Problems: (1) Intractable nausea and vomiting Status: Acute Assessment: 1. Intractable nausea and vomiting. 2. Dehydration. 3. Hypokalemia. 4. cyclical vomiting syndrome 5. Anxiety and depression. 6. Cannabinoid use PLAN: 1. replete electrolytes 2. continue anti-emetics and IV pain medication 3. recheck AM labs 4. tolerating clear liquids, advance diet as tolerated 5. probable discharge if symptoms improve and/or tolerating PO. Problems: Comment Review of Relevant I have reviewed the following items miguel (where applicable) has been applied. Labs Laboratory Tests Test 01/26/17 08:26 01/26/17 09:10 01/26/17 09:20 01/27/17 03:53 Bedside Urine HCG, Qualitative Hcg negative (Negative) Urine Opiates Screen Neg (NEG) Urine Methadone Screen Neg (NEG) Urine Barbiturates Neg (NEG) Urine Phencyclidine Screen Neg (NEG) Urine Amphetamine/Methamphetamine Neg (NEG) Urine Benzodiazepines Screen Pos (NEG) Urine Cocaine Screen Neg (NEG) Urine Cannabinoids Screen Pos (NEG) Urine Ethyl Alcohol Neg (NEG) White Blood Count 6.8x10^3/uL (4.0-11.0) 7.6x10^3/uL (4.0-11.0) Red Blood Count 4.80x10^6/uL (3.50-5.40) 4.03x10^6/uL (3.50-5.40) Hemoglobin 14.0g/dL (12.0-15.5) 12.0g/dL (12.0-15.5) Hematocrit 40.8% (36.0-47.0) 34.7% (36.0-47.0) Mean Corpuscular Volume 85fL (79-100) 86fL (79-100) Mean Corpuscular Hemoglobin 29pg (25-35) 30pg (25-35) Mean Corpuscular Hemoglobin Concent 34g/dL (31-37) 35g/dL (31-37) Red Cell Distribution Width 13.1% (11.5-14.5) 13.0% (11.5-14.5) Platelet Count 186x10^3/uL (140-400) 158x10^3/uL (140-400) Neutrophils (%) (Auto) 61% (31-73) 72% (31-73) Lymphocytes (%) (Auto) 31% (24-48) 21% (24-48) Monocytes (%) (Auto) 6% (0-9) 6% (0-9) Eosinophils (%) (Auto) 1% (0-3) 0% (0-3) Basophils (%) (Auto) 1% (0-3) 0% (0-3) Neutrophils # (Auto) 4.1x10^3uL (1.8-7.7) 5.5x10^3uL (1.8-7.7) Lymphocytes # (Auto) 2.1x10^3/uL (1.0-4.8) 1.6x10^3/uL (1.0-4.8) Monocytes # (Auto) 0.4x10^3/uL (0.0-1.1) 0.5x10^3/uL (0.0-1.1) Eosinophils # (Auto) 0.1x10^3/uL (0.0-0.7) 0.0x10^3/uL (0.0-0.7) Basophils # (Auto) 0.0x10^3/uL (0.0-0.2) 0.0x10^3/uL (0.0-0.2) Sodium Level 142mmol/L (136-145) 140mmol/L (136-145) Potassium Level 3.2mmol/L (3.5-5.1) 3.1mmol/L (3.5-5.1) Chloride Level 104mmol/L (98-107) 105mmol/L (98-107) Carbon Dioxide Level 22mmol/L (21-32) 25mmol/L (21-32) Anion Gap 16 (6-14) 10 (6-14) Blood Urea Nitrogen 9mg/dL (7-20) 4mg/dL (7-20) Creatinine 0.9mg/dL (0.6-1.0) 0.7mg/dL (0.6-1.0) Estimated GFR (Cockcroft-Gault) 77.6 103.7 BUN/Creatinine Ratio 10 (6-20) Glucose Level 146mg/dL (70-99) 100mg/dL (70-99) Calcium Level 9.2mg/dL (8.5-10.1) 8.1mg/dL (8.5-10.1) Total Bilirubin 0.4mg/dL (0.2-1.0) Aspartate Amino Transf (AST/SGOT) 15U/L (15-37) Alanine Aminotransferase (ALT/SGPT) 24U/L (14-59) Alkaline Phosphatase 53U/L (46-116) Total Protein 7.8g/dL (6.4-8.2) Albumin 4.3g/dL (3.4-5.0) Albumin/Globulin Ratio 1.2 (1.0-1.7) Laboratory Tests Test 01/27/17 03:53 White Blood Count 7.6x10^3/uL (4.0-11.0) Red Blood Count 4.03x10^6/uL (3.50-5.40) Hemoglobin 12.0g/dL (12.0-15.5) Hematocrit 34.7% (36.0-47.0) Mean Corpuscular Volume 86fL (79-100) Mean Corpuscular Hemoglobin 30pg (25-35) Mean Corpuscular Hemoglobin Concent 35g/dL (31-37) Red Cell Distribution Width 13.0% (11.5-14.5) Platelet Count 158x10^3/uL (140-400) Neutrophils (%) (Auto) 72% (31-73) Lymphocytes (%) (Auto) 21% (24-48) Monocytes (%) (Auto) 6% (0-9) Eosinophils (%) (Auto) 0% (0-3) Basophils (%) (Auto) 0% (0-3) Neutrophils # (Auto) 5.5x10^3uL (1.8-7.7) Lymphocytes # (Auto) 1.6x10^3/uL (1.0-4.8) Monocytes # (Auto) 0.5x10^3/uL (0.0-1.1) Eosinophils # (Auto) 0.0x10^3/uL (0.0-0.7) Basophils # (Auto) 0.0x10^3/uL (0.0-0.2) Sodium Level 140mmol/L (136-145) Potassium Level 3.1mmol/L (3.5-5.1) Chloride Level 105mmol/L (98-107) Carbon Dioxide Level 25mmol/L (21-32) Anion Gap 10 (6-14) Blood Urea Nitrogen 4mg/dL (7-20) Creatinine 0.7mg/dL (0.6-1.0) Estimated GFR (Cockcroft-Gault) 103.7 Glucose Level 100mg/dL (70-99) Calcium Level 8.1mg/dL (8.5-10.1) Medications Current Medications Sodium Chloride 1,000 ml @ 1,000 mls/hr 1X ONCE IV Last administered on 09:39; Start 01/26/17 at 09:30; Stop 01/26/17 at 10:29; Status DC Promethazine HCl/ Sodium Chloride (Phenergan/Iv Sodium Chloride 0.9% 50ml) 50.5 ml @ 151.5 mls/ hr PRN Q6HRS PRN IV NAUSEA/VOMITING Last administered on 10:00; Start 01/26/17 at 09:15 Lorazepam (Ativan) 2 mg 1X ONCE IV Last administered on 01/26/17 09:50; Start 01/26/17 at 09:45; Stop 01/26/17 at 09:46; Status DC Diphenhydramine HCl (Benadryl) 50 mg 1X ONCE IVP Last administered on 09:44; Start 01/26/17 at 09:45; Stop 01/26/17 at 09:46; Status DC Haloperidol Lactate (Haldol) 5 mg 1X ONCE IVP Last administered on 01/26/17 09:47; Start 01/26/17 at 09:45; Stop 01/26/17 at 09:46; Status DC Potassium Chloride 40 meq 40 meq 1X ONCE PO ; Start 01/26/17 at 10:30; Stop 09/03 at 10:31; Status DC Sodium Chloride (Iv Sodium Chloride 0.9% 1000ml Bag) 1,000 ml @ 1,000 mls/hr 1X ONCE IV Last administered on 01/26/17 11:40; Start 01/26/17 at 10:30; Stop 01/26/17 at 11:29; Status DC Pantoprazole Sodium (Protonix Vial) 40 mg 1X ONCE IVP Last administered on 11:06; Start 01/26/17 at 10:45; Stop 01/26/17 at 10:46; Status DC Metoclopramide HCl (Reglan) 10 mg 1X ONCE IV Last administered on 01/26/17 11 :04; Start 01/26/17 at 10:45; Stop 01/26/17 at 10:46; Status DC Ondansetron HCl 4 mg 4 mg PRN Q8HRS PRN IV NAUSEA/VOMITING Last administered on 01/27/17 06:12; Start 01/26/17 at 12:00; Stop 01/27/17 at 11:59; Status DC Sodium Chloride (Iv Sodium Chloride 0.9% 1000ml Bag) 1,000 ml @ 125 mls/hr Q8H IV Last administered on 01/27/17 06:13; Start 01/26/17 at 11:55; Stop at 11:54; Status DC Acetaminophen (Tylenol) 325 mg PRN Q6HRS PRN PO MILD PAIN / TEMP; Start at 15:00 Acetaminophen/ Hydrocodone Bitart (Lortab 5/325) 1 tab PRN Q6HRS PRN PO MODERATE TO SEVERE PAIN Last administered on 01/27/17 07:50; Start 01/26/17 at 15:00 Hydralazine HCl (Apresoline) 10 mg PRN Q4HRS PRN IVP ELEVATED BP, SEE COMMENTS ; Start 01/26/17 at 15:00 Ondansetron HCl (Zofran) 4 mg PRN Q8HRS PRN IV NAUSEA/VOMITING Last administered on 01/27/17 13:03; Start 01/26/17 at 15:00 Albuterol Sulfate (Ventolin Neb Soln) 2.5 mg PRN Q4HRS PRN NEB SHORTNESS OF BREATH; Start 01/26/17 at 15:00 Acetaminophen (Tylenol) 325 mg PRN Q6HRS PRN PO MILD PAIN / TEMP; Start at 17:30; Status UNV Acetaminophen/ Hydrocodone Bitart (Lortab 5/325) 1 tab PRN Q6HRS PRN PO MODERATE TO SEVERE PAIN; Start 01/26/17 at 17:30; Status UNV Hydralazine HCl (Apresoline) 10 mg PRN Q4HRS PRN IVP ELEVATED BP, SEE COMMENTS ; Start 01/26/17 at 17:30; Status UNV Ondansetron HCl (Zofran) 4 mg PRN Q8HRS PRN IV NAUSEA/VOMITING; Start 01/26/17 at 17:30; Status UNV Albuterol Sulfate (Ventolin Neb Soln) 2.5 mg PRN Q4HRS PRN NEB SHORTNESS OF BREATH; Start 01/26/17 at 17:30; Status UNV Morphine Sulfate 2 mg 2 mg PRN Q4HRS PRN IV PAIN Last administered on 09:58; Start 01/26/17 at 20:00 Potassium Chloride (KCl Premix 10meq) 100 ml @ 100 mls/hr Q1H IV Last administered on 01/27/17 13:04; Start 01/27/17 at 10:30; Stop 01/27/17 at 14:29 Calcium Carbonate/ Glycine (Tums) 500 mg PRN AFTMEALHC PRN PO INDIGESTION; Start 01/27/17 at 11:15 Morphine Sulfate 4 mg PRN Q2HR PRN IV PAIN Last administered on 4/12/17at 13:03 ; Start 01/27/17 at 12:45 Trimethobenzamide HCl (Tigan Im) 200 mg PRN Q6HRS PRN IM NAUSEA/VOMITING; Start 01/27/17 at 12:45 Active Scripts Active Amitriptyline Hcl 50 Mg Tablet 1 Tab PO QHS Vitals/I & O Vital Sign - Last 24 Hours 01/26/17 01/26/17 01/26/17 01/26/17 14:52 16:12 19:00 20:05 Temp 98.1 99.1 98.1 99.1 Pulse 87 75 Resp 18 18 B/P 138/76 142/99 Pulse Ox 95 97 O2 Delivery Room Air Room Air Room Air Room Air 01/26/17 01/26/17 01/27/17 01/27/17 22:16 23:00 03:00 04:40 Temp 98.8 98.0 98.8 98.0 Pulse 107 58 Resp 18 18 18 18 B/P 139/94 93/45 Pulse Ox 97 93 O2 Delivery Room Air Room Air Room Air Room Air 01/27/17 01/27/17 01/27/17 01/27/17 05:10 07:00 07:45 07:50 Temp 97.9 97.9 Pulse 55 Resp 18 B/P 153/100 Pulse Ox 100 O2 Delivery Room Air Room Air Room Air 01/27/17 01/27/17 01/27/17 01/27/17 08:50 09:58 10:28 11:00 Temp 97.4 97.4 Pulse 62 Resp 16 B/P 107/64 Pulse Ox 97 O2 Delivery Room Air Room Air Room Air Room Air 01/27/17 01/27/17 13:03 13:43 O2 Delivery Room Air Room Air Intake and Output 01/26/17 01/26/17 01/27/17 15:00 23:00 07:00 Intake Total 2050.5 ml 3240 ml Balance 2050.5 ml 3240 ml CHEYENNE LOYOLA III, DO Jan 27, 2017 14:22
[2017-01-27 15:00] VITALS: BP 169/113
--- NOTE | 2017-01-27 16:12 | PDOC1 ---
History and Physical Date of Admission Date of Admission 01/26/17, LATE ENTRY Past Medical History Psych: Anxiety, Panic Past Surgical History Past Surgical History: Cholecystectomy Family History Family History: Diabetes, Heart Disease, Other Family History: Grandparents Social History ALCOHOL: none Drugs: Marijuana Current Problem List Problem List Problems Medical Problems: (1) Intractable nausea and vomiting Status: Acute Current Medications Current Medications Current Medications Medications (Trade) Dose Ordered Sig/Arnaldo Start Time Stop Time Status Last Admin Dose Admin Acetaminophen (Tylenol) 325 mg PRN Q6HRS PRN 01/26/17 17:30 UNV Acetaminophen/ Hydrocodone Bitart (Lortab 5/325) 1 tab PRN Q6HRS PRN 01/26/17 17:30 UNV Albuterol Sulfate (Ventolin Neb Soln) 2.5 mg PRN Q4HRS PRN 01/26/17 17:30 UNV Calcium Carbonate/ Glycine (Tums) 500 mg PRN AFTMEALHC PRN 01/27/17 11:15 Diphenhydramine HCl (Benadryl) 50 mg 1X ONCE 01/26/17 09:45 01/26/17 09:46 DC 01/26/17 09:44 50 MG Haloperidol Lactate (Haldol) 5 mg 1X ONCE 01/26/17 09:45 01/26/17 09:46 DC 01/26/17 09:47 5 MG Hydralazine HCl (Apresoline) 10 mg PRN Q4HRS PRN 01/26/17 17:30 UNV Lorazepam (Ativan) 2 mg 1X ONCE 01/26/17 09:45 01/26/17 09:46 DC 01/26/17 09:50 2 MG Metoclopramide HCl (Reglan) 10 mg 1X ONCE 01/26/17 10:45 01/26/17 10:46 DC 01/26/17 11:04 10 MG Morphine Sulfate 4 mg PRN Q2HR PRN 01/27/17 12:45 01/27/17 15:27 4 MG Morphine Sulfate 2 mg 2 mg PRN Q4HRS PRN 01/26/17 20:00 01/27/17 09:58 2 MG Ondansetron HCl (Zofran) 4 mg PRN Q8HRS PRN 01/26/17 17:30 UNV Ondansetron HCl 4 mg 4 mg PRN Q8HRS PRN 01/26/17 12:00 01/27/17 11:59 DC 01/27/17 06:12 4 MG Pantoprazole Sodium (Protonix Vial) 40 mg 1X ONCE 01/26/17 10:45 01/26/17 10:46 DC 01/26/17 11:06 40 MG Potassium Chloride (KCl Premix 10meq) 100 ml @ 100 mls/hr Q1H 01/27/17 10:30 01/27/17 14:29 DC 01/27/17 14:15 100 MLS/HR Potassium Chloride (Klor-Con) 40 meq 1X ONCE 01/26/17 10:30 01/26/17 10:31 DC Promethazine HCl/ Sodium Chloride (Phenergan/Iv Sodium Chloride 0.9% 50ml) 50.5 ml @ 151.5 mls/ hr PRN Q6HRS PRN 01/26/17 09:15 01/27/17 10:00 151.5 MLS/HR Sodium Chloride (Iv Sodium Chloride 0.9% 1000ml Bag) 1,000 ml @ 125 mls/hr Q8H 01/26/17 11:55 01/27/17 11:54 DC 01/27/17 06:13 125 MLS/HR Trimethobenzamide HCl (Tigan Im) 200 mg PRN Q6HRS PRN 01/27/17 12:45 Allergies Allergies Allergies Coded Allergies Type Severity Reaction Last Updated Verified coconut Allergy Severe Anaphylaxis 01/22/17 Yes ROS Review of System CONSTITUTIONAL: No fever or chills EYES: No recent changes SKIN: No rash or itching CARDIOVASCULAR: No chest pain, syncope, palpitations, or edema RESPIRATORY: No SOB or cough GASTROINTESTINAL: nausea, vomiting or abdominal pain NEUROLOGICAL: No headaches or weakness ENDOCRINE: No cold or heat intolerance GENITOURINARY: No urgency or frequency of urination MUSCULOSKELETAL: No back pain or joint pain LYMPHATICS: No enlarged lymph nodes PSYCHIATRIC: No anxiety or depression Physical Exam Physical Exam GEN.: No apparent distress. Alert and oriented. HEENT: Head is normocephalic, atraumatic NECK: Supple. LUNGS: Clear to auscultation. HEART: RRR, S1, S2 present. Peripheral pulses intact ABDOMEN: Soft, nontender. Positive bowel sounds. EXTREMITIES: Without any cyanosis. NEUROLOGIC: Normal speech, normal tone PSYCHIATRIC: Normal affect, normal mood. SKIN: No ulcerations Vitals Vitals Vital Signs Date Time Temp Pulse Resp B/P Pulse Ox O2 Delivery O2 Flow Rate FiO2 01/27/17 16:03 Room Air 01/27/17 15:00 97.9 51 16 169/113 97 97.9 Labs Labs Laboratory Tests Test 01/26/17 08:26 01/26/17 09:10 01/26/17 09:20 01/27/17 03:53 Bedside Urine HCG, Qualitative Hcg negative (Negative) Urine Opiates Screen Neg (NEG) Urine Methadone Screen Neg (NEG) Urine Barbiturates Neg (NEG) Urine Phencyclidine Screen Neg (NEG) Urine Amphetamine/Methamphetamine Neg (NEG) Urine Benzodiazepines Screen Pos (NEG) Urine Cocaine Screen Neg (NEG) Urine Cannabinoids Screen Pos (NEG) Urine Ethyl Alcohol Neg (NEG) White Blood Count 6.8x10^3/uL (4.0-11.0) 7.6x10^3/uL (4.0-11.0) Red Blood Count 4.80x10^6/uL (3.50-5.40) 4.03x10^6/uL (3.50-5.40) Hemoglobin 14.0g/dL (12.0-15.5) 12.0g/dL (12.0-15.5) Hematocrit 40.8% (36.0-47.0) 34.7% (36.0-47.0) Mean Corpuscular Volume 85fL (79-100) 86fL (79-100) Mean Corpuscular Hemoglobin 29pg (25-35) 30pg (25-35) Mean Corpuscular Hemoglobin Concent 34g/dL (31-37) 35g/dL (31-37) Red Cell Distribution Width 13.1% (11.5-14.5) 13.0% (11.5-14.5) Platelet Count 186x10^3/uL (140-400) 158x10^3/uL (140-400) Neutrophils (%) (Auto) 61% (31-73) 72% (31-73) Lymphocytes (%) (Auto) 31% (24-48) 21% (24-48) Monocytes (%) (Auto) 6% (0-9) 6% (0-9) Eosinophils (%) (Auto) 1% (0-3) 0% (0-3) Basophils (%) (Auto) 1% (0-3) 0% (0-3) Neutrophils # (Auto) 4.1x10^3uL (1.8-7.7) 5.5x10^3uL (1.8-7.7) Lymphocytes # (Auto) 2.1x10^3/uL (1.0-4.8) 1.6x10^3/uL (1.0-4.8) Monocytes # (Auto) 0.4x10^3/uL (0.0-1.1) 0.5x10^3/uL (0.0-1.1) Eosinophils # (Auto) 0.1x10^3/uL (0.0-0.7) 0.0x10^3/uL (0.0-0.7) Basophils # (Auto) 0.0x10^3/uL (0.0-0.2) 0.0x10^3/uL (0.0-0.2) Sodium Level 142mmol/L (136-145) 140mmol/L (136-145) Potassium Level 3.2mmol/L (3.5-5.1) 3.1mmol/L (3.5-5.1) Chloride Level 104mmol/L (98-107) 105mmol/L (98-107) Carbon Dioxide Level 22mmol/L (21-32) 25mmol/L (21-32) Anion Gap 16 (6-14) 10 (6-14) Blood Urea Nitrogen 9mg/dL (7-20) 4mg/dL (7-20) Creatinine 0.9mg/dL (0.6-1.0) 0.7mg/dL (0.6-1.0) Estimated GFR (Cockcroft-Gault) 77.6 103.7 BUN/Creatinine Ratio 10 (6-20) Glucose Level 146mg/dL (70-99) 100mg/dL (70-99) Calcium Level 9.2mg/dL (8.5-10.1) 8.1mg/dL (8.5-10.1) Total Bilirubin 0.4mg/dL (0.2-1.0) Aspartate Amino Transf (AST/SGOT) 15U/L (15-37) Alanine Aminotransferase (ALT/SGPT) 24U/L (14-59) Alkaline Phosphatase 53U/L (46-116) Total Protein 7.8g/dL (6.4-8.2) Albumin 4.3g/dL (3.4-5.0) Albumin/Globulin Ratio 1.2 (1.0-1.7) Laboratory Tests Test 01/27/17 03:53 White Blood Count 7.6x10^3/uL (4.0-11.0) Red Blood Count 4.03x10^6/uL (3.50-5.40) Hemoglobin 12.0g/dL (12.0-15.5) Hematocrit 34.7% (36.0-47.0) Mean Corpuscular Volume 86fL (79-100) Mean Corpuscular Hemoglobin 30pg (25-35) Mean Corpuscular Hemoglobin Concent 35g/dL (31-37) Red Cell Distribution Width 13.0% (11.5-14.5) Platelet Count 158x10^3/uL (140-400) Neutrophils (%) (Auto) 72% (31-73) Lymphocytes (%) (Auto) 21% (24-48) Monocytes (%) (Auto) 6% (0-9) Eosinophils (%) (Auto) 0% (0-3) Basophils (%) (Auto) 0% (0-3) Neutrophils # (Auto) 5.5x10^3uL (1.8-7.7) Lymphocytes # (Auto) 1.6x10^3/uL (1.0-4.8) Monocytes # (Auto) 0.5x10^3/uL (0.0-1.1) Eosinophils # (Auto) 0.0x10^3/uL (0.0-0.7) Basophils # (Auto) 0.0x10^3/uL (0.0-0.2) Sodium Level 140mmol/L (136-145) Potassium Level 3.1mmol/L (3.5-5.1) Chloride Level 105mmol/L (98-107) Carbon Dioxide Level 25mmol/L (21-32) Anion Gap 10 (6-14) Blood Urea Nitrogen 4mg/dL (7-20) Creatinine 0.7mg/dL (0.6-1.0) Estimated GFR (Cockcroft-Gault) 103.7 Glucose Level 100mg/dL (70-99) Calcium Level 8.1mg/dL (8.5-10.1) VTE Prophylaxis Ordered VTE Prophylaxis Devices: No VTE Pharmacological Prophylaxi: Yes LIANG ORDOÑEZ MD Jan 27, 2017 16:12
[2017-01-27] MEDS: TRIMETHOBENZAMIDE IM 200 MG/2 ML VIAL. IM PRN (16:30)
[2017-01-27 19:25] VITALS: BP 157/107
[2017-01-27 23:22] VITALS: BP 111/45
[2017-01-28] MEDS: MORPHINE SULFATE 4 MG/ML DISP.SYRIN. IV PRN ×9 (01:22→21:59)
[2017-01-28] MEDS: TRIMETHOBENZAMIDE IM 200 MG/2 ML VIAL. IM PRN (01:22)
[2017-01-28] MEDS: HYDROCODONE/APAP 5/325MG TABLET. PO PRN ×4 (02:37→23:43)
[2017-01-28] MEDS: ONDANSETRON PF 4 MG/2 ML VIAL. IV PRN ×3 (06:01→19:33)
[2017-01-28 06:52] LABS: BASO % 0 % (0-3); EOS % 0 % (0-3); HEMATOCRIT 37.8 % (36.0-47.0); HEMOGLOBIN 12.7 g/dL (12.0-15.5); LYMPH # 1.6 x10^3/uL (1.0-4.8); LYMPH % 30 % (24-48); MEAN CORPUSCULAR HEMOGLOBIN 29 pg (25-35); MEAN CORPUSCULAR HGB CONC 34 g/dL (31-37); MEAN CORPUSCULAR VOLUME 87 fL (79-100); MONO % 9 % (0-9); NEUT % 61 % (31-73); PLATELET COUNT 158 x10^3/uL (140-400); RED BLOOD COUNT 4.35 x10^6/uL (3.50-5.40); RED CELL DISTRIBUTION WIDTH 13.4 % (11.5-14.5); WHITE BLOOD COUNT 5.3 x10^3/uL (4.0-11.0)
[2017-01-28 07:00] VITALS: BP 98/53
[2017-01-28 07:14] LABS: CALCIUM 8.6 mg/dL (8.5-10.1); CREATININE 0.7 mg/dL (0.6-1.0); GFR 103.7; POTASSIUM 3.7 mmol/L (3.5-5.1)
[2017-01-28] MEDS: PROMETHAZINE 12.5 MG in IV NORMAL SALINE 50ML 50 ML IV PRN ×3 (08:24→21:58)
[2017-01-28 11:00] VITALS: BP 123/76
--- NOTE | 2017-01-28 11:42 | PDOC ---
PROGRESS NOTES Chief Complaint Chief Complaint Intractable N/V Cyclic vomiting syndrome Anxiety Depression Cannabinoid use History of Present Illness History of Present Illness Patient seen and evaluated at bedside. No acute events overnight. Patient reports improvement with nausea with no episodes of emesis. She tolerated full liquids this AM and will attempt a regular diet. She still some nausea and abdominal discomfort. d/w nurse. Vitals Vitals Vital Signs Date Time Temp Pulse Resp B/P Pulse Ox O2 Delivery O2 Flow Rate FiO2 01/28/17 11:00 98.3 82 18 123/76 96 Room Air 98.3 Physical Exam General: Alert, Oriented X3, Cooperative, No acute distress Heart: Regular rate, Normal S1 Lungs: Clear, Other (negative chest retractions. ) Abdomen: Normal bowel sounds, Soft, No hepatosplenomegaly, Other ( periumbilical tenderness with palpation with voluntary guarding. negative rigidity. ) Extremities: No clubbing, No cyanosis, No edema Skin: No rashes, No breakdown Labs LABS Laboratory Tests Test 01/28/17 05:55 01/28/17 06:00 Sodium Level 138mmol/L (136-145) Potassium Level 3.7mmol/L (3.5-5.1) Chloride Level 102mmol/L (98-107) Carbon Dioxide Level 26mmol/L (21-32) Anion Gap 10 (6-14) Blood Urea Nitrogen 6mg/dL (7-20) Creatinine 0.7mg/dL (0.6-1.0) Estimated GFR (Cockcroft-Gault) 103.7 Glucose Level 81mg/dL (70-99) Calcium Level 8.6mg/dL (8.5-10.1) White Blood Count 5.3x10^3/uL (4.0-11.0) Red Blood Count 4.35x10^6/uL (3.50-5.40) Hemoglobin 12.7g/dL (12.0-15.5) Hematocrit 37.8% (36.0-47.0) Mean Corpuscular Volume 87fL (79-100) Mean Corpuscular Hemoglobin 29pg (25-35) Mean Corpuscular Hemoglobin Concent 34g/dL (31-37) Red Cell Distribution Width 13.4% (11.5-14.5) Platelet Count 158x10^3/uL (140-400) Neutrophils (%) (Auto) 61% (31-73) Lymphocytes (%) (Auto) 30% (24-48) Monocytes (%) (Auto) 9% (0-9) Eosinophils (%) (Auto) 0% (0-3) Basophils (%) (Auto) 0% (0-3) Neutrophils # (Auto) 3.2x10^3uL (1.8-7.7) Lymphocytes # (Auto) 1.6x10^3/uL (1.0-4.8) Monocytes # (Auto) 0.5x10^3/uL (0.0-1.1) Eosinophils # (Auto) 0.0x10^3/uL (0.0-0.7) Basophils # (Auto) 0.0x10^3/uL (0.0-0.2) Review of Systems Review of Systems (+) nausea (+) periumblical abdominal pain Denies chest pain, shortness of breath, dizziness/lightheadedness, vomiting/ diarrhea, dysuria, or fever/chills. Assessment and Plan Assessmemt and Plan Problems Medical Problems: (1) Intractable nausea and vomiting Status: Acute Assessment: 1. Intractable nausea and vomiting. 2. Dehydration. 3. Hypokalemia. 4. cyclical vomiting syndrome 5. Anxiety and depression. 6. Cannabinoid use PLAN: 1.) probable discharge to home if patient tolerates PO 2.) restart home medications; rx for pain management and refill of amitriptyline. 3.) f/u with pcp in 1-2 weeks. 4.) avoid potential gastric irritants and/or known associated triggers 5.) continue activity and diet as tolerated. Problems: Comment Review of Relevant I have reviewed the following items miguel (where applicable) has been applied. Labs Laboratory Tests Test 01/27/17 03:53 01/28/17 05:55 01/28/17 06:00 White Blood Count 7.6x10^3/uL (4.0-11.0) 5.3x10^3/uL (4.0-11.0) Red Blood Count 4.03x10^6/uL (3.50-5.40) 4.35x10^6/uL (3.50-5.40) Hemoglobin 12.0g/dL (12.0-15.5) 12.7g/dL (12.0-15.5) Hematocrit 34.7% (36.0-47.0) 37.8% (36.0-47.0) Mean Corpuscular Volume 86fL (79-100) 87fL (79-100) Mean Corpuscular Hemoglobin 30pg (25-35) 29pg (25-35) Mean Corpuscular Hemoglobin Concent 35g/dL (31-37) 34g/dL (31-37) Red Cell Distribution Width 13.0% (11.5-14.5) 13.4% (11.5-14.5) Platelet Count 158x10^3/uL (140-400) 158x10^3/uL (140-400) Neutrophils (%) (Auto) 72% (31-73) 61% (31-73) Lymphocytes (%) (Auto) 21% (24-48) 30% (24-48) Monocytes (%) (Auto) 6% (0-9) 9% (0-9) Eosinophils (%) (Auto) 0% (0-3) 0% (0-3) Basophils (%) (Auto) 0% (0-3) 0% (0-3) Neutrophils # (Auto) 5.5x10^3uL (1.8-7.7) 3.2x10^3uL (1.8-7.7) Lymphocytes # (Auto) 1.6x10^3/uL (1.0-4.8) 1.6x10^3/uL (1.0-4.8) Monocytes # (Auto) 0.5x10^3/uL (0.0-1.1) 0.5x10^3/uL (0.0-1.1) Eosinophils # (Auto) 0.0x10^3/uL (0.0-0.7) 0.0x10^3/uL (0.0-0.7) Basophils # (Auto) 0.0x10^3/uL (0.0-0.2) 0.0x10^3/uL (0.0-0.2) Sodium Level 140mmol/L (136-145) 138mmol/L (136-145) Potassium Level 3.1mmol/L (3.5-5.1) 3.7mmol/L (3.5-5.1) Chloride Level 105mmol/L (98-107) 102mmol/L (98-107) Carbon Dioxide Level 25mmol/L (21-32) 26mmol/L (21-32) Anion Gap 10 (6-14) 10 (6-14) Blood Urea Nitrogen 4mg/dL (7-20) 6mg/dL (7-20) Creatinine 0.7mg/dL (0.6-1.0) 0.7mg/dL (0.6-1.0) Estimated GFR (Cockcroft-Gault) 103.7 103.7 Glucose Level 100mg/dL (70-99) 81mg/dL (70-99) Calcium Level 8.1mg/dL (8.5-10.1) 8.6mg/dL (8.5-10.1) Laboratory Tests Test 01/28/17 05:55 01/28/17 06:00 Sodium Level 138mmol/L (136-145) Potassium Level 3.7mmol/L (3.5-5.1) Chloride Level 102mmol/L (98-107) Carbon Dioxide Level 26mmol/L (21-32) Anion Gap 10 (6-14) Blood Urea Nitrogen 6mg/dL (7-20) Creatinine 0.7mg/dL (0.6-1.0) Estimated GFR (Cockcroft-Gault) 103.7 Glucose Level 81mg/dL (70-99) Calcium Level 8.6mg/dL (8.5-10.1) White Blood Count 5.3x10^3/uL (4.0-11.0) Red Blood Count 4.35x10^6/uL (3.50-5.40) Hemoglobin 12.7g/dL (12.0-15.5) Hematocrit 37.8% (36.0-47.0) Mean Corpuscular Volume 87fL (79-100) Mean Corpuscular Hemoglobin 29pg (25-35) Mean Corpuscular Hemoglobin Concent 34g/dL (31-37) Red Cell Distribution Width 13.4% (11.5-14.5) Platelet Count 158x10^3/uL (140-400) Neutrophils (%) (Auto) 61% (31-73) Lymphocytes (%) (Auto) 30% (24-48) Monocytes (%) (Auto) 9% (0-9) Eosinophils (%) (Auto) 0% (0-3) Basophils (%) (Auto) 0% (0-3) Neutrophils # (Auto) 3.2x10^3uL (1.8-7.7) Lymphocytes # (Auto) 1.6x10^3/uL (1.0-4.8) Monocytes # (Auto) 0.5x10^3/uL (0.0-1.1) Eosinophils # (Auto) 0.0x10^3/uL (0.0-0.7) Basophils # (Auto) 0.0x10^3/uL (0.0-0.2) Medications Current Medications Sodium Chloride 1,000 ml @ 1,000 mls/hr 1X ONCE IV Last administered on 09:39; Start 01/26/17 at 09:30; Stop 01/26/17 at 10:29; Status DC Promethazine HCl/ Sodium Chloride (Phenergan/Iv Sodium Chloride 0.9% 50ml) 50.5 ml @ 151.5 mls/ hr PRN Q6HRS PRN IV NAUSEA/VOMITING Last administered on 08:24; Start 01/26/17 at 09:15 Lorazepam (Ativan) 2 mg 1X ONCE IV Last administered on 01/26/17 09:50; Start 01/26/17 at 09:45; Stop 01/26/17 at 09:46; Status DC Diphenhydramine HCl (Benadryl) 50 mg 1X ONCE IVP Last administered on 09:44; Start 01/26/17 at 09:45; Stop 01/26/17 at 09:46; Status DC Haloperidol Lactate (Haldol) 5 mg 1X ONCE IVP Last administered on 01/26/17 09:47; Start 01/26/17 at 09:45; Stop 01/26/17 at 09:46; Status DC Potassium Chloride 40 meq 40 meq 1X ONCE PO ; Start 01/26/17 at 10:30; Stop 09/03 at 10:31; Status DC Sodium Chloride (Iv Sodium Chloride 0.9% 1000ml Bag) 1,000 ml @ 1,000 mls/hr 1X ONCE IV Last administered on 01/26/17 11:40; Start 01/26/17 at 10:30; Stop 01/26/17 at 11:29; Status DC Pantoprazole Sodium (Protonix Vial) 40 mg 1X ONCE IVP Last administered on 11:06; Start 01/26/17 at 10:45; Stop 01/26/17 at 10:46; Status DC Metoclopramide HCl (Reglan) 10 mg 1X ONCE IV Last administered on 01/26/17 11 :04; Start 01/26/17 at 10:45; Stop 01/26/17 at 10:46; Status DC Ondansetron HCl 4 mg 4 mg PRN Q8HRS PRN IV NAUSEA/VOMITING Last administered on 01/27/17 06:12; Start 01/26/17 at 12:00; Stop 01/27/17 at 11:59; Status DC Sodium Chloride (Iv Sodium Chloride 0.9% 1000ml Bag) 1,000 ml @ 125 mls/hr Q8H IV Last administered on 01/27/17 06:13; Start 01/26/17 at 11:55; Stop at 11:54; Status DC Acetaminophen (Tylenol) 325 mg PRN Q6HRS PRN PO MILD PAIN / TEMP Last administered on 01/28/17 02:37; Start 01/26/17 at 15:00 Acetaminophen/ Hydrocodone Bitart (Lortab 5/325) 1 tab PRN Q6HRS PRN PO MODERATE TO SEVERE PAIN Last administered on 01/28/17 09:12; Start 01/26/17 at 15:00 Hydralazine HCl (Apresoline) 10 mg PRN Q4HRS PRN IVP ELEVATED BP, SEE COMMENTS ; Start 01/26/17 at 15:00 Ondansetron HCl (Zofran) 4 mg PRN Q8HRS PRN IV NAUSEA/VOMITING Last administered on 01/27/17 13:03; Start 01/26/17 at 15:00; Stop 01/27/17 at 17:28 ; Status DC Albuterol Sulfate (Ventolin Neb Soln) 2.5 mg PRN Q4HRS PRN NEB SHORTNESS OF BREATH; Start 01/26/17 at 15:00 Acetaminophen (Tylenol) 325 mg PRN Q6HRS PRN PO MILD PAIN / TEMP; Start at 17:30; Status UNV Acetaminophen/ Hydrocodone Bitart (Lortab 5/325) 1 tab PRN Q6HRS PRN PO MODERATE TO SEVERE PAIN; Start 01/26/17 at 17:30; Status UNV Hydralazine HCl (Apresoline) 10 mg PRN Q4HRS PRN IVP ELEVATED BP, SEE COMMENTS ; Start 01/26/17 at 17:30; Status UNV Ondansetron HCl (Zofran) 4 mg PRN Q8HRS PRN IV NAUSEA/VOMITING; Start 01/26/17 at 17:30; Status UNV Albuterol Sulfate (Ventolin Neb Soln) 2.5 mg PRN Q4HRS PRN NEB SHORTNESS OF BREATH; Start 01/26/17 at 17:30; Status UNV Morphine Sulfate 2 mg 2 mg PRN Q4HRS PRN IV PAIN Last administered on 09:58; Start 01/26/17 at 20:00; Stop 01/27/17 at 17:28; Status DC Potassium Chloride (KCl Premix 10meq) 100 ml @ 100 mls/hr Q1H IV Last administered on 01/27/17 17:54; Start 01/27/17 at 10:30; Stop 01/27/17 at 14:29 ; Status DC Calcium Carbonate/ Glycine (Tums) 500 mg PRN AFTMEALHC PRN PO INDIGESTION; Start 01/27/17 at 11:15 Morphine Sulfate 4 mg PRN Q2HR PRN IV PAIN Last administered on 01/28/17 10:53 ; Start 01/27/17 at 12:45 Trimethobenzamide HCl (Tigan Im) 200 mg PRN Q6HRS PRN IM NAUSEA/VOMITING Last administered on 01/28/17 01:22; Start 01/27/17 at 12:45 Ondansetron HCl (Zofran) 4 mg PRN Q6HRS PRN IV NAUSEA/VOMITING Last administered on 01/28/17 06:01; Start 4/12/17 at 17:30 Active Scripts Active Amitriptyline Hcl 50 Mg Tablet 1 Tab PO QHS Vitals/I & O Vital Sign - Last 24 Hours 01/27/17 01/27/17 01/27/17 01/27/17 13:03 15:00 15:27 17:54 Temp 97.9 97.9 Pulse 51 Resp 16 B/P 169/113 Pulse Ox 97 O2 Delivery Room Air Room Air Room Air Room Air 01/27/17 01/27/17 01/28/17 01/28/17 19:25 23:22 03:00 07:00 Temp 97.7 97.9 98.0 97.7 97.9 98.0 Pulse 119 53 57 Resp 20 18 18 B/P 157/107 111/45 98/53 Pulse Ox 98 96 93 O2 Delivery Room Air Room Air Room Air Room Air 01/28/17 01/28/17 01/28/17 01/28/17 07:50 08:24 08:55 09:12 O2 Delivery Room Air Room Air Room Air Room Air 01/28/17 01/28/17 01/28/17 10:15 10:53 11:00 Temp 98.3 98.3 Pulse 82 Resp 18 B/P 123/76 Pulse Ox 96 O2 Delivery Room Air Room Air Room Air CHEYENNE LOYOLA III DO Jan 28, 2017 11:42
[2017-01-28 15:00] VITALS: BP 119/76
[2017-01-28 19:30] VITALS: BP 123/79
--- NOTE | 2017-01-28 20:47 | DS ---
DATE OF DISCHARGE: 01/28/2017 ADMISSION DIAGNOSIS: Cyclic vomiting. DISCHARGE DIAGNOSIS: Resolving cyclic vomiting. HOSPITAL COURSE: The patient is a pleasant 21-year-old female who presented with cyclic vomiting. This is an acute on chronic issue for her. We gave her p.r.n. antiemetics and fluids, now, she has resolved. We plan to discharge. DISPOSITION: Home. ACTIVITY: As tolerated. DIET: Low sodium. MEDICATIONS: Please see the MRAD. TOTAL TIME: 34 minutes. CHEYENNE LOYOLA DO DR: BYRON/rusty JOB#: [id number] / [id number]
[2017-01-28 23:39] VITALS: BP 129/73
[2017-01-29] MEDS: MORPHINE SULFATE 4 MG/ML DISP.SYRIN. IV PRN ×5 (00:05→09:55)
[2017-01-29 02:38] VITALS: BP 126/74
[2017-01-29] MEDS: ONDANSETRON PF 4 MG/2 ML VIAL. IV PRN ×2 (03:29→09:55)
[2017-01-29 05:23] LABS: BASO % 0 % (0-3); EOS % 1 % (0-3); HEMATOCRIT 39.2 % (36.0-47.0); HEMOGLOBIN 13.5 g/dL (12.0-15.5); LYMPH # 2.2 x10^3/uL (1.0-4.8); LYMPH % 40 % (24-48); MEAN CORPUSCULAR HEMOGLOBIN 30 pg (25-35); MEAN CORPUSCULAR HGB CONC 35 g/dL (31-37); MEAN CORPUSCULAR VOLUME 86 fL (79-100); MONO % 9 % (0-9); NEUT % 50 % (31-73); PLATELET COUNT 169 x10^3/uL (140-400); RED BLOOD COUNT 4.58 x10^6/uL (3.50-5.40); RED CELL DISTRIBUTION WIDTH 13.2 % (11.5-14.5); WHITE BLOOD COUNT 5.7 x10^3/uL (4.0-11.0)
[2017-01-29] MEDS: PROMETHAZINE 12.5 MG in IV NORMAL SALINE 50ML 50 ML IV PRN (05:26)
[2017-01-29 05:47] LABS: CALCIUM 8.8 mg/dL (8.5-10.1); CREATININE 0.8 mg/dL (0.6-1.0); GFR 88.9; POTASSIUM 3.5 mmol/L (3.5-5.1)
[2017-01-29] MEDS: HYDROCODONE/APAP 5/325MG TABLET. PO PRN (06:11)
[2017-01-29 07:00] VITALS: BP 108/75
--- NOTE | 2017-01-29 13:08 | PDOC ---
PROGRESS NOTES Chief Complaint Chief Complaint Intractable N/V Cyclic vomiting syndrome Anxiety Depression Cannabinoid use History of Present Illness History of Present Illness Patient seen and evaluated at bedside. No acute events overnight. Patient reports improvement of her symptoms this morning, tolerating PO. She is comfortable with discharge. d/w nurse. Vitals Vitals Vital Signs Date Time Temp Pulse Resp B/P Pulse Ox O2 Delivery O2 Flow Rate FiO2 01/29/17 10:31 Room Air 01/29/17 07:00 97.5 88 20 108/75 97 97.5 Physical Exam General: Alert, Oriented X3, Cooperative, No acute distress Heart: Regular rate, Normal S1 Lungs: Clear, Other (negative chest retractions. ) Abdomen: Normal bowel sounds, Soft, No hepatosplenomegaly, Other ( periumbilical tenderness with palpation. negative peritoneal signs. ) Extremities: No clubbing, No cyanosis, No edema Skin: No rashes, No breakdown Labs LABS Laboratory Tests Test 01/29/17 04:00 White Blood Count 5.7x10^3/uL (4.0-11.0) Red Blood Count 4.58x10^6/uL (3.50-5.40) Hemoglobin 13.5g/dL (12.0-15.5) Hematocrit 39.2% (36.0-47.0) Mean Corpuscular Volume 86fL (79-100) Mean Corpuscular Hemoglobin 30pg (25-35) Mean Corpuscular Hemoglobin Concent 35g/dL (31-37) Red Cell Distribution Width 13.2% (11.5-14.5) Platelet Count 169x10^3/uL (140-400) Neutrophils (%) (Auto) 50% (31-73) Lymphocytes (%) (Auto) 40% (24-48) Monocytes (%) (Auto) 9% (0-9) Eosinophils (%) (Auto) 1% (0-3) Basophils (%) (Auto) 0% (0-3) Neutrophils # (Auto) 2.8x10^3uL (1.8-7.7) Lymphocytes # (Auto) 2.2x10^3/uL (1.0-4.8) Monocytes # (Auto) 0.5x10^3/uL (0.0-1.1) Eosinophils # (Auto) 0.1x10^3/uL (0.0-0.7) Basophils # (Auto) 0.0x10^3/uL (0.0-0.2) Sodium Level 142mmol/L (136-145) Potassium Level 3.5mmol/L (3.5-5.1) Chloride Level 103mmol/L (98-107) Carbon Dioxide Level 29mmol/L (21-32) Anion Gap 10 (6-14) Blood Urea Nitrogen 7mg/dL (7-20) Creatinine 0.8mg/dL (0.6-1.0) Estimated GFR (Cockcroft-Gault) 88.9 Glucose Level 86mg/dL (70-99) Calcium Level 8.8mg/dL (8.5-10.1) Review of Systems Review of Systems (+) abdominal pain, improved (+) nausea, resolved. Denies chest pain, sob, vomiting/diarrhea, dysuria, or fever/chills. Assessment and Plan Assessmemt and Plan Problems Medical Problems: (1) Intractable nausea and vomiting Status: Acute Assessment: 1. Intractable nausea and vomiting, resolved 2. Dehydration. 3. Hypokalemia. 4. cyclical vomiting syndrome 5. Anxiety and depression. 6. Cannabinoid use PLAN: 1.) discharge to home 2.) restart home medications; rx for pain management and refill of amitriptyline. 3.) f/u with pcp in 1-2 weeks. 4.) avoid potential gastric irritants and/or known associated triggers 5.) continue activity and diet as tolerated. Problems: Comment Review of Relevant I have reviewed the following items miguel (where applicable) has been applied. Labs Laboratory Tests Test 01/28/17 05:55 01/28/17 06:00 01/29/17 04:00 Sodium Level 138mmol/L (136-145) 142mmol/L (136-145) Potassium Level 3.7mmol/L (3.5-5.1) 3.5mmol/L (3.5-5.1) Chloride Level 102mmol/L (98-107) 103mmol/L (98-107) Carbon Dioxide Level 26mmol/L (21-32) 29mmol/L (21-32) Anion Gap 10 (6-14) 10 (6-14) Blood Urea Nitrogen 6mg/dL (7-20) 7mg/dL (7-20) Creatinine 0.7mg/dL (0.6-1.0) 0.8mg/dL (0.6-1.0) Estimated GFR (Cockcroft-Gault) 103.7 88.9 Glucose Level 81mg/dL (70-99) 86mg/dL (70-99) Calcium Level 8.6mg/dL (8.5-10.1) 8.8mg/dL (8.5-10.1) White Blood Count 5.3x10^3/uL (4.0-11.0) 5.7x10^3/uL (4.0-11.0) Red Blood Count 4.35x10^6/uL (3.50-5.40) 4.58x10^6/uL (3.50-5.40) Hemoglobin 12.7g/dL (12.0-15.5) 13.5g/dL (12.0-15.5) Hematocrit 37.8% (36.0-47.0) 39.2% (36.0-47.0) Mean Corpuscular Volume 87fL (79-100) 86fL (79-100) Mean Corpuscular Hemoglobin 29pg (25-35) 30pg (25-35) Mean Corpuscular Hemoglobin Concent 34g/dL (31-37) 35g/dL (31-37) Red Cell Distribution Width 13.4% (11.5-14.5) 13.2% (11.5-14.5) Platelet Count 158x10^3/uL (140-400) 169x10^3/uL (140-400) Neutrophils (%) (Auto) 61% (31-73) 50% (31-73) Lymphocytes (%) (Auto) 30% (24-48) 40% (24-48) Monocytes (%) (Auto) 9% (0-9) 9% (0-9) Eosinophils (%) (Auto) 0% (0-3) 1% (0-3) Basophils (%) (Auto) 0% (0-3) 0% (0-3) Neutrophils # (Auto) 3.2x10^3uL (1.8-7.7) 2.8x10^3uL (1.8-7.7) Lymphocytes # (Auto) 1.6x10^3/uL (1.0-4.8) 2.2x10^3/uL (1.0-4.8) Monocytes # (Auto) 0.5x10^3/uL (0.0-1.1) 0.5x10^3/uL (0.0-1.1) Eosinophils # (Auto) 0.0x10^3/uL (0.0-0.7) 0.1x10^3/uL (0.0-0.7) Basophils # (Auto) 0.0x10^3/uL (0.0-0.2) 0.0x10^3/uL (0.0-0.2) Laboratory Tests Test 01/29/17 04:00 White Blood Count 5.7x10^3/uL (4.0-11.0) Red Blood Count 4.58x10^6/uL (3.50-5.40) Hemoglobin 13.5g/dL (12.0-15.5) Hematocrit 39.2% (36.0-47.0) Mean Corpuscular Volume 86fL (79-100) Mean Corpuscular Hemoglobin 30pg (25-35) Mean Corpuscular Hemoglobin Concent 35g/dL (31-37) Red Cell Distribution Width 13.2% (11.5-14.5) Platelet Count 169x10^3/uL (140-400) Neutrophils (%) (Auto) 50% (31-73) Lymphocytes (%) (Auto) 40% (24-48) Monocytes (%) (Auto) 9% (0-9) Eosinophils (%) (Auto) 1% (0-3) Basophils (%) (Auto) 0% (0-3) Neutrophils # (Auto) 2.8x10^3uL (1.8-7.7) Lymphocytes # (Auto) 2.2x10^3/uL (1.0-4.8) Monocytes # (Auto) 0.5x10^3/uL (0.0-1.1) Eosinophils # (Auto) 0.1x10^3/uL (0.0-0.7) Basophils # (Auto) 0.0x10^3/uL (0.0-0.2) Sodium Level 142mmol/L (136-145) Potassium Level 3.5mmol/L (3.5-5.1) Chloride Level 103mmol/L (98-107) Carbon Dioxide Level 29mmol/L (21-32) Anion Gap 10 (6-14) Blood Urea Nitrogen 7mg/dL (7-20) Creatinine 0.8mg/dL (0.6-1.0) Estimated GFR (Cockcroft-Gault) 88.9 Glucose Level 86mg/dL (70-99) Calcium Level 8.8mg/dL (8.5-10.1) Medications Current Medications Sodium Chloride 1,000 ml @ 1,000 mls/hr 1X ONCE IV Last administered on 09:39; Start 01/26/17 at 09:30; Stop 01/26/17 at 10:29; Status DC Promethazine HCl/ Sodium Chloride (Phenergan/Iv Sodium Chloride 0.9% 50ml) 50.5 ml @ 151.5 mls/ hr PRN Q6HRS PRN IV NAUSEA/VOMITING Last administered on 05:26; Start 01/26/17 at 09:15; Stop 01/29/17 at 11:23; Status DC Lorazepam (Ativan) 2 mg 1X ONCE IV Last administered on 01/26/17 09:50; Start 01/26/17 at 09:45; Stop 01/26/17 at 09:46; Status DC Diphenhydramine HCl (Benadryl) 50 mg 1X ONCE IVP Last administered on 09:44; Start 01/26/17 at 09:45; Stop 01/26/17 at 09:46; Status DC Haloperidol Lactate (Haldol) 5 mg 1X ONCE IVP Last administered on 01/26/17 09:47; Start 01/26/17 at 09:45; Stop 01/26/17 at 09:46; Status DC Potassium Chloride 40 meq 40 meq 1X ONCE PO ; Start 01/26/17 at 10:30; Stop 09/03 at 10:31; Status DC Sodium Chloride (Iv Sodium Chloride 0.9% 1000ml Bag) 1,000 ml @ 1,000 mls/hr 1X ONCE IV Last administered on 01/26/17 11:40; Start 01/26/17 at 10:30; Stop 01/26/17 at 11:29; Status DC Pantoprazole Sodium (Protonix Vial) 40 mg 1X ONCE IVP Last administered on 11:06; Start 01/26/17 at 10:45; Stop 01/26/17 at 10:46; Status DC Metoclopramide HCl (Reglan) 10 mg 1X ONCE IV Last administered on 01/26/17 11 :04; Start 01/26/17 at 10:45; Stop 01/26/17 at 10:46; Status DC Ondansetron HCl 4 mg 4 mg PRN Q8HRS PRN IV NAUSEA/VOMITING Last administered on 01/27/17 06:12; Start 01/26/17 at 12:00; Stop 01/27/17 at 11:59; Status DC Sodium Chloride (Iv Sodium Chloride 0.9% 1000ml Bag) 1,000 ml @ 125 mls/hr Q8H IV Last administered on 01/27/17 06:13; Start 01/26/17 at 11:55; Stop at 11:54; Status DC Acetaminophen (Tylenol) 325 mg PRN Q6HRS PRN PO MILD PAIN / TEMP Last administered on 01/28/17 02:37; Start 01/26/17 at 15:00; Stop 01/29/17 at 11:23 ; Status DC Acetaminophen/ Hydrocodone Bitart (Lortab 5/325) 1 tab PRN Q6HRS PRN PO MODERATE TO SEVERE PAIN Last administered on 01/29/17 06:11; Start 01/26/17 at 15:00; Stop 01/29/17 at 11:23; Status DC Hydralazine HCl (Apresoline) 10 mg PRN Q4HRS PRN IVP ELEVATED BP, SEE COMMENTS ; Start 01/26/17 at 15:00; Stop 01/29/17 at 11:23; Status DC Ondansetron HCl (Zofran) 4 mg PRN Q8HRS PRN IV NAUSEA/VOMITING Last administered on 01/27/17 13:03; Start 01/26/17 at 15:00; Stop 01/27/17 at 17:28 ; Status DC Albuterol Sulfate (Ventolin Neb Soln) 2.5 mg PRN Q4HRS PRN NEB SHORTNESS OF BREATH; Start 01/26/17 at 15:00; Stop 01/29/17 at 11:23; Status DC Acetaminophen (Tylenol) 325 mg PRN Q6HRS PRN PO MILD PAIN / TEMP; Start at 17:30; Status UNV Acetaminophen/ Hydrocodone Bitart (Lortab 5/325) 1 tab PRN Q6HRS PRN PO MODERATE TO SEVERE PAIN; Start 01/26/17 at 17:30; Status UNV Hydralazine HCl (Apresoline) 10 mg PRN Q4HRS PRN IVP ELEVATED BP, SEE COMMENTS ; Start 01/26/17 at 17:30; Status UNV Ondansetron HCl (Zofran) 4 mg PRN Q8HRS PRN IV NAUSEA/VOMITING; Start 01/26/17 at 17:30; Status UNV Albuterol Sulfate (Ventolin Neb Soln) 2.5 mg PRN Q4HRS PRN NEB SHORTNESS OF BREATH; Start 01/26/17 at 17:30; Status UNV Morphine Sulfate 2 mg 2 mg PRN Q4HRS PRN IV PAIN Last administered on 09:58; Start 01/26/17 at 20:00; Stop 01/27/17 at 17:28; Status DC Potassium Chloride (KCl Premix 10meq) 100 ml @ 100 mls/hr Q1H IV Last administered on 01/27/17 17:54; Start 01/27/17 at 10:30; Stop 01/27/17 at 14:29 ; Status DC Calcium Carbonate/ Glycine (Tums) 500 mg PRN AFTMEALHC PRN PO INDIGESTION; Start 01/27/17 at 11:15; Stop 01/29/17 at 11:23; Status DC Morphine Sulfate 4 mg PRN Q2HR PRN IV PAIN Last administered on 01/29/17 09:55 ; Start 01/27/17 at 12:45; Stop 01/29/17 at 11:23; Status DC Trimethobenzamide HCl (Tigan Im) 200 mg PRN Q6HRS PRN IM NAUSEA/VOMITING Last administered on 01/28/17 01:22; Start 01/27/17 at 12:45; Stop 01/29/17 at 11:23 ; Status DC Ondansetron HCl (Zofran) 4 mg PRN Q6HRS PRN IV NAUSEA/VOMITING Last administered on 01/29/17t 09:55; Start 01/27/17 at 17:30; Stop 01/29/17 at 11:23 ; Status DC Active Scripts Active Amitriptyline Hcl 50 Mg Tablet 1 Tab PO QHS Vitals/I & O Vital Sign - Last 24 Hours 01/28/17 01/28/17 01/28/17 01/28/17 14:59 15:00 17:21 17:45 Temp 98.3 98.3 Pulse 68 Resp 18 B/P 119/76 Pulse Ox 95 O2 Delivery Room Air Room Air Room Air Room Air 01/28/17 01/28/17 01/28/17 01/28/17 19:30 19:30 19:33 21:59 Temp 98.0 98.0 Pulse 90 Resp 18 B/P 123/79 Pulse Ox 92 O2 Delivery Room Air Room Air Room Air Room Air 01/28/17 01/28/17 01/29/17 01/29/17 23:39 23:43 00:05 02:38 Temp 98.4 98.3 98.4 98.3 Pulse 59 64 Resp 59 18 B/P 129/73 126/74 Pulse Ox 100 97 O2 Delivery Room Air Room Air Room Air Room Air 01/29/17 01/29/17 01/29/17 01/29/17 03:30 05:27 06:11 07:00 Temp 97.5 97.5 Pulse 88 Resp 20 B/P 108/75 Pulse Ox 97 O2 Delivery Room Air Room Air Room Air Room Air 01/29/17 01/29/17 01/29/17 01/29/17 07:18 07:40 07:41 09:55 O2 Delivery Room Air Room Air Room Air Room Air 01/29/17 10:31 O2 Delivery Room Air Intake and Output 01/28/17 01/28/17 01/29/17 14:59 22:59 06:59 Intake Total 800 ml 240 ml Balance 800 ml 240 ml CHEYENNE LOYOLA III DO Jan 29, 2017 13:08
--- NOTE | 2017-02-01 04:02 | DS ---
DATE OF DISCHARGE: 01/29/2017 ADMISSION DIAGNOSIS: Cyclic vomiting syndrome. DISCHARGE DIAGNOSIS: Resolving cyclic vomiting syndrome. HOSPITAL COURSE: The patient is a pleasant 21-year-old female who has cyclic vomiting syndrome. We have admitted her many times for this. She is once again admitted with p.r.n. antiemetics and fluids. Over the next few days, she returned to her baseline. We discharged to home with close outpatient followup. DISPOSITION: Home. ACTIVITY: As tolerated. DIET: Low sodium. MEDICATIONS: Please see the MRAD. TOTAL TIME: 36 minutes. CHEYENNE LOYOLA DO DR: BYRON/rusty JOB#: [id number] / [id number]
== END 2017-01-29 11:13 | disposition home or self-care (01) ==
LOC: ER 08:47 → 4 NORTH 11:40
PROVIDERS: ADMIT Internal Medicine; ATTEND Internal Medicine
DX: R11.2 Nausea with vomiting, unspecified (principal); E86.0 Dehydration; E87.6 Hypokalemia; G43.A0 Cyclical vomiting, in migraine, not intractable; F32.9 Major depressive disorder, single episode, unspecified; F41.9 Anxiety disorder, unspecified; F12.90 Cannabis use, unspecified, uncomplicated
CPT/HCPCS: 36415; 80048; 80053; 81025; 85027; 94250; 96361; 96365; 96366; 96367; 96372; 96375; 96376; 99285; C9113; G0378; G0481; J1200; J1630; J2060; J2270; J2405; J2550; J2765; J3250; J3480; J7030; G0379

== ENCOUNTER 2017-02-12 08:00 | Emergency (ER) | payer SELFPAY ==
[2017-02-12] MEDS ORDERED: ONDANSETRON PF 4 MG/2 ML VIAL. IV ONE (09:15)
--- NOTE | 2017-02-12 09:17 | PHYS DOC ---
Past Medical History Past Medical History: Anxiety, Asthma, Cyclic Vomiting, Depression Additional Past Medical Histor: cyclic vomiting syndrome Past Surgical History: Cholecystectomy Alcohol Use: None Drug Use: Marijuana Adult General Chief Complaint Chief Complaint: ABDOMINAL PAIN HPI HPI Patient is a 21 year old female with history of cyclic vomiting, anxiety, asthma who presents today with nausea vomiting and epigastric abdominal pain moderate in nature that began today. Patient denies any diarrhea. Denies any fever. Denies any urgency frequency or dysuria. She states she's had cyclic vomiting since she was 1 years old. She states they usually give her multiple medications including Dilaudid, Ativan, Haldol, Reglan, Protonix, Zofran. Patient is actively vomiting in the ED. Review of Systems Review of Systems Constitutional: Denies fever or chills [] Eyes: Denies change in visual acuity, redness, or eye pain [] HENT: Denies nasal congestion or sore throat [] Respiratory: Denies cough or shortness of breath [] Cardiovascular: No additional information not addressed in HPI [] GI: Epigastric abdominal pain with nausea and vomiting : Denies dysuria or hematuria [] Musculoskeletal: Denies back pain or joint pain [] Integument: Denies rash or skin lesions [] Neurologic: Denies headache, focal weakness or sensory changes [] Endocrine: Denies polyuria or polydipsia [] Current Medications Current Medications Current Medications Medications (Trade) Dose Ordered Sig/[facility] Start Time Stop Time Status Last Admin Dose Admin Famotidine (Pepcid) 20 mg QHS 02/12/17 21:00 Haloperidol Lactate (Haldol) 5 mg 1X ONCE 02/12/17 09:30 02/12/17 09:31 DC 02/12/17 09:30 5 MG Hydromorphone HCl (Dilaudid) 1 mg 1X ONCE 02/12/17 11:00 02/12/17 11:01 DC 02/12/17 11:00 1 MG Hydromorphone HCl 1 mg 1 mg 1X ONCE 02/12/17 09:45 02/12/17 09:46 DC 02/12/17 09:45 1 MG Metoclopramide HCl (Reglan) 10 mg 1X ONCE 02/12/17 09:30 02/12/17 09:31 DC 02/12/17 09:30 10 MG Ondansetron HCl (Zofran) 8 mg 1X ONCE 02/12/17 09:15 02/12/17 09:16 DC 02/12/17 09:15 8 MG Sodium Chloride (Iv Sodium Chloride 0.9% 1000ml Bag) 1,000 ml @ 1,000 mls/hr 1X ONCE 02/12/17 10:45 02/12/17 11:44 DC 02/12/17 10:45 1,000 MLS/HR Allergies Allergies Allergies Coded Allergies Type Severity Reaction Last Updated Verified coconut Allergy Severe Anaphylaxis 01/22/17 Yes Physical Exam Physical Exam Constitutional: Well developed, well nourished, no acute distress, non-toxic appearance. [] HENT: Normocephalic, atraumatic, bilateral external ears normal, oropharynx moist, no oral exudates, nose normal. [] Eyes: PERRLA, EOMI, conjunctiva normal, no discharge. [] Neck: Normal range of motion, no tenderness, supple, no stridor. [] Cardiovascular:Heart rate regular rhythm, no murmur [] Lungs & Thorax: Bilateral breath sounds clear to auscultation [] Abdomen: Bowel sounds normal, soft, diffuse moderate tenderness to the epigastric region and throughout the abdomen, negative Azevedo's sign, negative psoas sign, no masses, no pulsatile masses. [] Skin: Warm, dry, no erythema, no rash. [] Back: No tenderness, no CVA tenderness. [] Extremities: No tenderness, no cyanosis, no clubbing, ROM intact, no edema. [] Neurologic: Alert and oriented X 3, normal motor function, normal sensory function, no focal deficits noted. [] Psychologic: Affect normal, judgement normal, mood normal. [] Current Patient Data Vital Signs Vital Signs Date Time Temp Pulse Resp B/P Pulse Ox O2 Delivery O2 Flow Rate FiO2 02/12/17 11:00 116 18 143/85 99 Room Air 02/12/17 09:00 98.8 98.8 Lab Values Laboratory Tests Test 02/12/17 09:15 White Blood Count 11.2x10^3/uL (4.0-11.0) H Red Blood Count 4.70x10^6/uL (3.50-5.40) Hemoglobin 14.3g/dL (12.0-15.5) Hematocrit 40.6% (36.0-47.0) Mean Corpuscular Volume 86fL (79-100) Mean Corpuscular Hemoglobin 31pg (25-35) Mean Corpuscular Hemoglobin Concent 35g/dL (31-37) Red Cell Distribution Width 13.3% (11.5-14.5) Platelet Count 193x10^3/uL (140-400) Neutrophils (%) (Auto) 85% (31-73) H Lymphocytes (%) (Auto) 11% (24-48) L Monocytes (%) (Auto) 4% (0-9) Eosinophils (%) (Auto) 0% (0-3) Basophils (%) (Auto) 0% (0-3) Neutrophils # (Auto) 9.5x10^3uL (1.8-7.7) H Lymphocytes # (Auto) 1.2x10^3/uL (1.0-4.8) Monocytes # (Auto) 0.4x10^3/uL (0.0-1.1) Eosinophils # (Auto) 0.0x10^3/uL (0.0-0.7) Basophils # (Auto) 0.0x10^3/uL (0.0-0.2) Sodium Level 136mmol/L (136-145) Potassium Level 3.6mmol/L (3.5-5.1) Chloride Level 101mmol/L (98-107) Carbon Dioxide Level 24mmol/L (21-32) Anion Gap 11 (6-14) Blood Urea Nitrogen 11mg/dL (7-20) Creatinine 0.8mg/dL (0.6-1.0) Estimated GFR (Cockcroft-Gault) 88.9 BUN/Creatinine Ratio 14 (6-20) Glucose Level 159mg/dL (70-99) H Calcium Level 9.8mg/dL (8.5-10.1) Total Bilirubin 0.6mg/dL (0.2-1.0) Aspartate Amino Transferase (AST) 23U/L (15-37) Alanine Aminotransferase (ALT) 40U/L (14-59) Alkaline Phosphatase 60U/L (46-116) Total Protein 8.3g/dL (6.4-8.2) H Albumin 4.4g/dL (3.4-5.0) Albumin/Globulin Ratio 1.1 (1.0-1.7) Lipase 117U/L (73-393) Ethyl Alcohol Level < 10mg/dL (0-10) Laboratory Tests 02/12/17 09:15 Laboratory Tests 02/12/17 09:15 EKG EKG [] Radiology/Procedures Radiology/Procedures [] Course & Med Decision Making Course & Med Decision Making Pertinent Labs and Imaging studies reviewed. (See chart for details) Patient with history of cyclic vomiting who presents today with epigastric abdominal pain and vomiting. She is actively vomiting in the ED. patient's labs are negative. She has not given us urine. She was given Haldol, famotidine, and Zofran. She was also given 1 L of IV fluids. She was still complaining of nausea, she has not vomited since she got these medications. She tells to be restless when you walk in the room Patient states her pain is not relieved. She states her nausea is not relieved. Informed her I won't discharge her with nausea medicine. She states that is not that good idea she states she has to be admitted. Consulted with Dr. Phan to admit patient. 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 He also states this patient is well known for drug seeking behavior especially with admission and to be preferred she goes home. I went and talked to patient. When I told patient we are considering discharging her home because the doctor's who do admissions feel she is a drug seeker, she immediately sat up in bed and stated she'll call the to come and pick her up. She did not complain. Dragon Disclaimer Dragon Disclaimer This electronic medical record was generated, in whole or in part, using a voice recognition dictation system. Departure Departure Impression: Primary Impression: Cyclical vomiting Additional Impression: Chronic epigastric pain Disposition: 01 HOME, SELF-CARE Condition: STABLE Referrals: NO PCP (PCP) Follow-up with your doctor as soon as possible LUIS F HO MD You can follow-up with the provided photo colorer in 1-3 days Patient Instructions: Abdominal Pain, Cyclic Vomiting Syndrome Additional Instructions: You were seen for cyclic vomiting. We discharged you with famotidine and Zofran. We also gave you compazine Take them as prescribed. Follow-up with your doctor as soon as possible. Scripts Famotidine 20 Mg Aturla55 Mg PO DAILY #30 TAB Prov:BRIDGET ZAPATA APRN 02/12/17 Ondansetron (Zofran Odt)4 Mg Tab.rapdis1 Tab SL Q8HRS #15 TAB Prov:BRIDGET ZAPATA APRN 02/12/17 Prochlorperazine Maleate (Compazine)10 Mg [id number] Mg PO Q8HRS #30 TAB Prov:BRIDGET ZAPATA APRN 02/12/17 Problem Qualifiers Primary Impression: Cyclical vomiting Vomiting Intractability: non-intractable Nausea presence: with nausea Qualified Code: G43.A0 - Cyclical vomiting, not intractable BRIDGET ZAPATA APRN Feb 12, 2017 09:17
[2017-02-12 09:28] LABS: BASO % 0 % (0-3); EOS % 0 % (0-3); HEMATOCRIT 40.6 % (36.0-47.0); HEMOGLOBIN 14.3 g/dL (12.0-15.5); LYMPH # 1.2 x10^3/uL (1.0-4.8); LYMPH % 11 % (24-48); MEAN CORPUSCULAR HEMOGLOBIN 31 pg (25-35); MEAN CORPUSCULAR HGB CONC 35 g/dL (31-37); MEAN CORPUSCULAR VOLUME 86 fL (79-100); MONO % 4 % (0-9); NEUT % 85 % (31-73); PLATELET COUNT 193 x10^3/uL (140-400); RED CELL DISTRIBUTION WIDTH 13.3 % (11.5-14.5); WHITE BLOOD COUNT 11.2 x10^3/uL (4.0-11.0)
[2017-02-12] MEDS ORDERED: METOCLOPRAMIDE HCL 10 MG/2 ML VIAL. IV ONE (09:30)
[2017-02-12] MEDS ORDERED: HALOPERIDOL LACTATE 5 MG/ML VIAL. IVP ONE (09:30)
[2017-02-12] MEDS ORDERED: IV NORMAL SALINE 1000ML BAG 1,000 ML IV ONE ×2 (09:30→10:45)
[2017-02-12 09:38] LABS: CALCIUM 9.8 mg/dL (8.5-10.1); CREATININE 0.8 mg/dL (0.6-1.0); GFR 88.9; POTASSIUM 3.6 mmol/L (3.5-5.1)
[2017-02-12 09:43] LABS: ALBUMIN 4.4 g/dL (3.4-5.0); ALBUMIN/GLOBULIN RATIO 1.1 (1.0-1.7); TOTAL BILIRUBIN 0.6 mg/dL (0.2-1.0); TOTAL PROTEIN 8.3 g/dL (6.4-8.2)
[2017-02-12] MEDS ORDERED: HYDROmorphone 2 MG/ML VIAL IV ONE ×2 (09:45→11:00)
--- NOTE | 2017-02-12 12:26 | ACF ---
Admission Forms Criteria VOMITING Clinical Indications for Admission to Inpatient Care ( Place 'X' for any and all applicable criteria): Admission is indicated for 1 or more of the following(1)(2)(3): [ ]I. Complete or partial gastrointestinal obstruction [ ]II. Vomiting due to significant metabolic derangement (eg, severe hypercalcemia, diabetic ketoacidosis) [ ]III. Other cause of vomiting requiring hospitalization (eg, poisoning, increased intracranial pressure) [X]IV. Inpatient admission required rather than observation care because of 1 or more of the following [ ]i) Hemodynamic instability [X]ii) Vomiting that is severe or persistent indicated by 1 or more of the following 1) Numerous episodes of vomiting in past 24hours (eg, every 1 to 2 hours) 2) Suggests severe underlying cause or complication (eg , projectile, feculent, bilious, coffee ground, bloody) 3) Appropriate antiemetic treatment (eg, repeated oral or parenteral dosing) does not sufficiently reduce vomiting within 12 to 24 hours of treatment 4) Treatment regimen necessary to adequately control vomiting requires inpatient level of care (eg, not immediately available in outpatient setting) [ ]iii) Severe electrolyte abnormalities requiring inpatient care [ ]iv) Severe pain requiring acute inpatient management( Continuous or frequent (eg, every 2 to 4 hours) parental analgesics or analgesic regimen that can only be performed or initiated in inpatient setting) [ ]v) High fever or infection requiring inpatient admission as indicated by 1 or more of the following(7)(8): [ ]1) Appropriate outpatient or observation care antimicrobial treatment unavailable, not effective, or not feasible [ ]2) Documented bacteremia [ ]3) Temp >104.9 degrees F (40.5 degrees C) (oral) [ ]4) Temp >103.1 degrees F (39.5 C) (oral) or <96.8 degrees F (36 C) (rectal) that does not respond to all emergency treatment measures [ ]vi) Acute renal failure [ ]vii) IV fluid required rather than oral rehydration to replace significant on going losses (greater than 3 L/m2 per day) [ ]viii) Parenteral nutrition regimen that must be implemented on inpatient basis [ ]ix) Other condition, treatment or monitoring requiring inpatient admission Extended stay beyond goal length of stay may be needed for(1)(4): [ ]a) Severe vomiting [ ]b) Persistent vomiting, vital sign changes, severe electrolyte imbalance , or diagnosed cause of vomiting that requires continued hospitalization (eg, gastrointestinal obstruction , increased intracranial pressure) [ ]c) Surgery to treat identified causes of vomiting (eg, bowel obstruction , intracranial process) [ ]d) Comorbid illness that requires inpatient care (eg, acute heart failure , renal failure) [ ]e) Need for inpatient endoscopy The original [email or web address] content created by [employer] has been revised. The portions of the content which have been revised are identified through the use of italic text or in bold, and [facility] has neither reviewed nor approved the modified material. All other unmodified content is copyright [facility] [facility]. Please see references footnoted in the original [facility] [employer] edition 2016 Admission Criteria Met?: Yes EHSAN LIGHT Feb 12, 2017 12:26
[2017-02-12 13:00] VITALS: BP 130/83
[2017-02-12] MEDS ORDERED: FAMOTIDINE 20 MG/2 ML VIAL ONE (13:15)
[2017-02-12] MEDS ORDERED: FAMO20TA5 PO (13:17)
[2017-02-12] MEDS ORDERED: ONDA4TAB10 SL (13:17)
[2017-02-12] MEDS ORDERED: PROC10TA57 PO (13:17)
[2017-02-12] MEDS ORDERED: FAMOTIDINE 20 MG/2 ML VIAL IVP SCH (21:00)
== END 2017-02-12 13:25 | disposition home or self-care (01) ==
LOC: ER 08:00
DX: G43.A0 Cyclical vomiting, in migraine, not intractable (principal); R10.13 Epigastric pain; F32.9 Major depressive disorder, single episode, unspecified; F41.9 Anxiety disorder, unspecified; J45.909 Unspecified asthma, uncomplicated; F12.10 Cannabis abuse, uncomplicated; Z90.49 Acquired absence of other specified parts of digestive tract; Z91.018 Allergy to other foods
CPT/HCPCS: 36415; 80053; 81025; 83690; 85027; 96361; 96374; 96375; 96376; 99285; G0480; J1170; J1630; J2405; J2765; J7030

== ENCOUNTER 2017-03-03 04:43 | Inpatient (IN) | payer SELFPAY ==
[~2017-03-03] VITALS: Ht 162.6 cm; Wt 60.1 kg
[~2017-03-03 04:43] MED LIST changes: +FAMO20TA5 PO; +ONDA4TAB10 SL; +PROC10TA57 PO
[2017-03-03] MEDS ORDERED: ONDANSETRON PF 4 MG/2 ML VIAL. ONE (05:04)
[2017-03-03 05:16] LABS: BASO # 0.1 x10^3/uL (0.0-0.2); BASO % 1 % (0-3); EOS % 0 % (0-3); HEMATOCRIT 41.4 % (36.0-47.0); HEMOGLOBIN 14.2 g/dL (12.0-15.5); LYMPH # 2.6 x10^3/uL (1.0-4.8); LYMPH % 23 % (24-48); MEAN CORPUSCULAR HEMOGLOBIN 30 pg (25-35); MEAN CORPUSCULAR HGB CONC 34 g/dL (31-37); MEAN CORPUSCULAR VOLUME 87 fL (79-100); MONO % 7 % (0-9); NEUT % 69 % (31-73); PLATELET COUNT 190 x10^3/uL (140-400); RED BLOOD COUNT 4.78 x10^6/uL (3.50-5.40); RED CELL DISTRIBUTION WIDTH 13.2 % (11.5-14.5); WHITE BLOOD COUNT 11.3 x10^3/uL (4.0-11.0)
[2017-03-03 05:17] LABS: BILIRUBIN,URINE NEGATIVE (NEG); GLUCOSE,URINE NEGATIVE (NEG); NITRITE,URINE NEGATIVE (NEG); PROTEIN,URINE 100 mg/dL (NEG-TRACE)
[2017-03-03 05:25] LABS: BACTERIA,URINE MANY /HPF (0-FEW); RBC,URINE OCC /HPF (0-2); SQUAMOUS EPITHELIAL CELL,UR MANY /LPF
[2017-03-03 05:29] LABS: CALCIUM 9.6 mg/dL (8.5-10.1); CREATININE 0.7 mg/dL (0.6-1.0); GFR 103.7; POTASSIUM 3.4 mmol/L (3.5-5.1)
[2017-03-03] MEDS ORDERED: IV NORMAL SALINE 1000ML BAG 1,000 ML IV ONE ×2 (05:30→08:15)
[2017-03-03 05:35] LABS: ALBUMIN 4.5 g/dL (3.4-5.0); ALBUMIN/GLOBULIN RATIO 1.3 (1.0-1.7); TOTAL BILIRUBIN 1.1 mg/dL (0.2-1.0)
[2017-03-03] MEDS ORDERED: PANTOPRAZOLE IV PUSH 40 MG VIAL. IVP ONE ×2 (05:51→06:15)
[2017-03-03] MEDS ORDERED: ONDANSETRON PF 4 MG/2 ML VIAL. IV ONE ×2 (06:00→06:30)
[2017-03-03] MEDS ORDERED: KETAMINE HCL 500 MG/10 ML VIAL. IV ONE (06:15)
--- NOTE | 2017-03-03 06:27 | PHYS DOC ---
Past Medical History Past Medical History: Anxiety, Asthma, Cyclic Vomiting, Depression Additional Past Medical Histor: cyclic vomiting syndrome Past Surgical History: Cholecystectomy Alcohol Use: None Drug Use: Marijuana Adult General Chief Complaint Chief Complaint: vomiting HPI HPI Patient is a 21 year old female who presents with abdominal pain, vomiting, feeling anxious with chest tightness. Pt has long-standing h/o cyclic vomiting syndrome, believed to be related to MJ use. No fevers reported. Pt believes her chest tightness is related to her feeling anxious and is requesting something for anxiety. Review of Systems Review of Systems Constitutional: Denies fever or chills [] Eyes: Denies change in visual acuity, redness, or eye pain [] HENT: Denies nasal congestion or sore throat [] Respiratory: Denies cough or shortness of breath [] Cardiovascular: per hpi GI: per hpi : Denies dysuria or hematuria [] Musculoskeletal: Denies back pain or joint pain [] Integument: Denies rash or skin lesions [] Neurologic: Denies headache, focal weakness or sensory changes [] Current Medications Current Medications Current Medications Medications (Trade) Dose Ordered Sig/Arnaldo Start Time Stop Time Status Last Admin Dose Admin Acetaminophen (Tylenol) 650 mg PRN Q4HRS PRN 03/03/17 08:15 03/04/17 08:14 UNV Capsaicin (Zostrix) 1 sami TID 03/03/17 07:14 03/03/17 07:22 1 SAMI Diazepam (Valium) 5 mg 1X ONCE 03/03/17 07:15 03/03/17 07:16 DC 03/03/17 07:22 5 MG Ketamine HCl 20 mg 1X ONCE 03/03/17 06:15 03/03/17 06:16 UNV Ketamine HCl 20 mg/Sodium Chloride 500.4 ml @ 500.4 mls/ hr 1X ONCE 03/03/17 07:00 03/03/17 07:59 DC 03/03/17 06:28 500.4 MLS/HR Lorazepam (Ativan) 1 mg 1X ONCE 03/03/17 06:30 03/03/17 06:31 DC 03/03/17 06:23 1 MG Metoclopramide HCl (Reglan) 10 mg 1X ONCE 03/03/17 07:30 03/03/17 07:31 DC 03/03/17 07:37 10 MG Ondansetron HCl (Zofran) 4 mg PRN Q8HRS PRN 03/03/17 08:15 03/04/17 08:14 UNV Pantoprazole Sodium (Protonix Vial) 40 mg 1X ONCE 03/03/17 06:15 03/03/17 06:16 DC 03/03/17 06:04 40 MG Sodium Chloride 1,000 ml @ 1,000 mls/hr 1X ONCE 03/03/17 05:30 03/03/17 06:29 DC 03/03/17 05:05 1,000 MLS/HR Allergies Allergies Allergies Coded Allergies Type Severity Reaction Last Updated Verified coconut Allergy Severe Anaphylaxis 01/22/17 Yes Physical Exam Physical Exam Constitutional: Well developed, well nourished, ill-appearing, actively vomiting HENT: Normocephalic, atraumatic, bilateral external ears normal, oropharynx moist, no oral exudates, nose normal. [] Eyes: PERRLA, EOMI, conjunctiva normal, no discharge. [] Neck: Normal range of motion, no tenderness, supple, no stridor. [] Cardiovascular:Heart rate regular with regular rhythm, no murmur [] Lungs & Thorax: Bilateral breath sounds clear to auscultation , no wheeze or crackles Abdomen: Bowel sounds normal, soft, nondistended Skin: Warm, dry, no erythema, no rash. [] Back: No tenderness, no CVA tenderness. [] Extremities: No tenderness, no cyanosis, no clubbing, ROM intact, no edema. [] Neurologic: Alert and oriented X 3, normal motor function, normal sensory function, no focal deficits noted. [] Psychologic: Affect normal, judgement normal, mood normal. [] Current Patient Data Vital Signs Vital Signs Date Time Temp Pulse Resp B/P (MAP) Pulse Ox O2 Delivery O2 Flow Rate FiO2 03/03/17 07:27 92 16 142/97 (112) 100 Room Air Lab Values Laboratory Tests Test 03/03/17 04:08 03/03/17 04:52 03/03/17 05:00 POC Urine HCG, Qualitative Hcg negative (Negative) Urine Collection Type Unknown Urine Color Yellow Urine Clarity Cloudy Urine pH 6.0 Urine Specific [place] >=1.030 Urine Protein 100 mg/dL (NEG-TRACE) Urine Glucose (UA) Negative mg/dL (NEG) Urine Ketones (Stick) >=80 mg/dL (NEG) Urine Blood Negative (NEG) Urine Nitrite Negative (NEG) Urine Bilirubin Negative (NEG) Urine Urobilinogen Dipstick 1.0 mg/dL (0.2 mg/dL) Urine Leukocyte Esterase Moderate (NEG) Urine RBC Occ /HPF (0-2) Urine WBC 5-10 /HPF (0-4) Urine Squamous Epithelial Cells Many /LPF Urine Bacteria Many /HPF (0-FEW) Urine Mucus Mod /LPF Urine Opiates Screen Neg (NEG) Urine Methadone Screen Neg (NEG) Urine Barbiturates Neg (NEG) Urine Phencyclidine Screen Neg (NEG) Urine Amphetamine/Methamphetamine Neg (NEG) Urine Benzodiazepines Screen Pos (NEG) Urine Cocaine Screen Neg (NEG) Urine Cannabinoids Screen Pos (NEG) Urine Ethyl Alcohol Neg (NEG) White Blood Count 11.3 x10^3/uL (4.0-11.0) H Red Blood Count 4.78 x10^6/uL (3.50-5.40) Hemoglobin 14.2 g/dL (12.0-15.5) Hematocrit 41.4 % (36.0-47.0) Mean Corpuscular Volume 87 fL (79-100) Mean Corpuscular Hemoglobin 30 pg (25-35) Mean Corpuscular Hemoglobin Concent 34 g/dL (31-37) Red Cell Distribution Width 13.2 % (11.5-14.5) Platelet Count 190 x10^3/uL (140-400) Neutrophils (%) (Auto) 69 % (31-73) Lymphocytes (%) (Auto) 23 % (24-48) L Monocytes (%) (Auto) 7 % (0-9) Eosinophils (%) (Auto) 0 % (0-3) Basophils (%) (Auto) 1 % (0-3) Neutrophils # (Auto) 7.8 x10^3uL (1.8-7.7) H Lymphocytes # (Auto) 2.6 x10^3/uL (1.0-4.8) Monocytes # (Auto) 0.7 x10^3/uL (0.0-1.1) Eosinophils # (Auto) 0.0 x10^3/uL (0.0-0.7) Basophils # (Auto) 0.1 x10^3/uL (0.0-0.2) Sodium Level 139 mmol/L (136-145) Potassium Level 3.4 mmol/L (3.5-5.1) L Chloride Level 103 mmol/L (98-107) Carbon Dioxide Level 17 mmol/L (21-32) L Anion Gap 19 (6-14) H Blood Urea Nitrogen 11 mg/dL (7-20) Creatinine 0.7 mg/dL (0.6-1.0) Estimated GFR (Cockcroft-Gault) 103.7 BUN/Creatinine Ratio 16 (6-20) Glucose Level 161 mg/dL (70-99) H Calcium Level 9.6 mg/dL (8.5-10.1) Total Bilirubin 1.1 mg/dL (0.2-1.0) H Aspartate Amino Transferase (AST) 19 U/L (15-37) Alanine Aminotransferase (ALT) 17 U/L (14-59) Alkaline Phosphatase 64 U/L (46-116) Total Protein 8.0 g/dL (6.4-8.2) Albumin 4.5 g/dL (3.4-5.0) Albumin/Globulin Ratio 1.3 (1.0-1.7) Lipase 76 U/L (73-393) Laboratory Tests 03/03/17 05:00 Laboratory Tests 03/03/17 05:00 EKG EKG 107 bpm, sinus tach, normal axis, QTC of 465, no ST elevation or depression, nonischemic T waves, wandering baseline on interpreted by me [] Radiology/Procedures Radiology/Procedures [] Course & Med Decision Making Course & Med Decision Making Pertinent Labs and Imaging studies reviewed. (See chart for details) pt received zofran, IV fluids and labs completed prior to my arrival. Pt still vomiting. Additional zofran given along with 20mg IV Ketamine in 500ml NS bolus. Pt also requesting anxiolytic, IV ativan given. Patient's vomiting appeared to subside but she was still complaining of pain and asking for morning she lytics. IV Valium was given along with capsain cream as her urine drug screen continues to show marijuana. IV Reglan was given. still not feeling better. I offered admission and she agreed. Dr. Sharma accepted this patient. We'll continue IV hydration. Dragon Disclaimer Dragon Disclaimer This electronic medical record was generated, in whole or in part, using a voice recognition dictation system. Departure Departure Impression: Primary Impression: Cyclical vomiting Disposition: ADMITTED INPATIENT Admitting Physician: Violetta Luis Condition: STABLE Referrals: NO PCP (PCP) RYAN SALAZAR MD March 03, 2017 06:27
[2017-03-03 06:36] LABS: BARBITURATES NEG (NEG); BENZODIAZEPINES POS (NEG); CANNABINOIDS POS (NEG); COCAINE NEG (NEG); METHADONE NEG (NEG); OPIATES NEG (NEG); PHENCYCLIDINE NEG (NEG)
[2017-03-03] MEDS ORDERED: KETAMINE HCL IV ONE (07:00)
[2017-03-03] MEDS ORDERED: NORMAL SALINE IV ONE (07:00)
[2017-03-03] MEDS: CAPSAICIN 0.025% TOPICAL CREAM 60GM TUBE. TP SCH ×3 (07:22→21:00)
[2017-03-03] MEDS ORDERED: METOCLOPRAMIDE HCL 10 MG/2 ML VIAL. IV ONE (07:30)
--- NOTE | 2017-03-03 07:57 | EKG ---
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
[2017-03-03] MEDS ORDERED: ONDANSETRON PF 4 MG/2 ML VIAL. IV PRN (08:15)
[2017-03-03] MEDS ORDERED: ACETAMINOPHEN 325 MG TABLET. PO PRN (08:15)
[2017-03-03] MEDS: IV NORMAL SALINE 1000ML BAG 1,000 ML IV SCH ×2 (09:00→21:10)
[2017-03-03] MEDS: FAMOTIDINE 20 MG TABLET. PO SCH (09:00)
--- NOTE | 2017-03-03 09:03 | PDOC1 ---
History and Physical Date of Admission Date of Admission DATE: 03/03/17 TIME: 08:57 Identification/Chief Complaint Chief Complaint vomiting Problems: Source Source: Caregiver, Chart review, Patient History of Present Illness History of Present Illness 21 y.o female, known cyclic vomiting syndrome, claims been vomiting since age 1, last GET was 09/2016 and was normal, SHe has a bucket at bedside, started last night 9 PM, unable to participate with H and P much while being seen at ER. NO diarrhea, no recent sick contacts or travel. LAbs show ketonuria and very concentrated urine with high specific gravity, mild AGAP at 19, K 3.4, WBC 11,.3.Only on elavil at home and anti emetics. She did test positive for cannabinoids on UDS. Past Medical History Psych: Anxiety, Panic Past Surgical History Past Surgical History: Cholecystectomy Family History Family History: Diabetes, Heart Disease, Other (reviewed, non contributory) Family History: Grandparents Social History Smoke: No ALCOHOL: none Drugs: Marijuana Current Problem List Problem List Problems Medical Problems: (1) Cyclical vomiting Status: Acute Problems: Current Medications Current Medications Current Medications Sodium Chloride 1,000 ml @ 1,000 mls/hr 1X ONCE IV Last administered on 05:05; Start 03/03/17 at 05:30; Stop 03/03/17 at 06:29; Status DC Ondansetron HCl (Zofran) 4 mg STK-MED ONCE .ROUTE ; Start 03/03/17 at 05:04; Stop 03/03/17 at 05:05; Status DC Ondansetron HCl (Zofran) 4 mg 1X ONCE IV Last administered on 03/03/17 05:05 ; Start 03/03/17 at 06:00; Stop 03/03/17 at 06:01; Status DC Pantoprazole Sodium (Protonix Vial) 40 mg STK-MED ONCE IVP ; Start 03/03/17 at 05:51; Stop 03/03/17 at 05:52; Status DC Pantoprazole Sodium (Protonix Vial) 40 mg 1X ONCE IVP Last administered on 06:04; Start 03/03/17 at 06:15; Stop 03/03/17 at 06:16; Status DC Ketamine HCl 20 mg 1X ONCE IV ; Start 03/03/17 at 06:15; Stop 03/03/17 at 06:16 ; Status UNV Ketamine HCl 20 mg/Sodium Chloride 500.4 ml @ 500.4 mls/ hr 1X ONCE IV Last administered on 03/03/17 06:28; Start 03/03/17 at 07:00; Stop 03/03/17 at 07:59 ; Status DC Ondansetron HCl (Zofran) 4 mg 1X ONCE IV Last administered on 03/03/17 06:21 ; Start 03/03/17 at 06:30; Stop 03/03/17 at 06:31; Status DC Lorazepam (Ativan) 1 mg 1X ONCE IV Last administered on 03/03/17 06:23; Start 03/03/17 at 06:30; Stop 03/03/17 at 06:31; Status DC Diazepam (Valium) 5 mg 1X ONCE IV Last administered on 03/03/17 07:22; Start 03/03/17 at 07:15; Stop 03/03/17 at 07:16; Status DC Capsaicin (Zostrix) 1 sami TID TP Last administered on 03/03/17 07:22; Start at 07:14 Metoclopramide HCl (Reglan) 10 mg 1X ONCE IV Last administered on 03/03/17 07 :37; Start 03/03/17 at 07:30; Stop 03/03/17 at 07:31; Status DC Ondansetron HCl (Zofran) 4 mg PRN Q8HRS PRN IV NAUSEA/VOMITING; Start 03/03/17 at 08:15; Stop 03/04/17 at 08:14 Acetaminophen (Tylenol) 650 mg PRN Q4HRS PRN PO FEVER; Start 03/03/17 at 08:15 ; Stop 03/04/17 at 08:14 Sodium Chloride 1,000 ml @ 100 mls/hr 1X ONCE IV ; Start 03/03/17 at 08:15; Stop 03/03/17 at 18:14 Active Scripts Active Famotidine 20 Mg Tablet 20 Mg PO DAILY Zofran Odt (Ondansetron) 4 Mg Tab.rapdis 1 Tab SL Q8HRS Compazine (Prochlorperazine Maleate) 10 Mg Tablet 10 Mg PO Q8HRS Amitriptyline Hcl 50 Mg Tablet 1 Tab PO QHS Allergies Allergies: Coded Allergies: coconut (Verified Allergy, Severe, Anaphylaxis, 01/22/17) rash, hives, throat sweeling ROS General: No: Chills, Night Sweats, Fatigue, Malaise, Appetite, Other PSYCHOLOGICAL ROS: No: Anxiety, Behavioral Disorder, Concentration difficultie , Decreased libido, Depression, Disorientation, Hallucinations, Hostility, Irritablity, Memory difficulties, Mood Swings, Obsessive thoughts, Physical abuse, Sexual abuse, Sleep disturbances, Suicidal ideation, Other Eyes: No Blurry vision, No Decreased vision, No Double vision, No Dry eyes, No Excessive tearing, No Eye Pain, No Itchy Eyes, No Loss of vision, No Photophobia , No Scotomata, No Uses contacts, No Uses glasses, No Other HEENT: No: Heacaches, Visual Changes, Hearing change, Nasal congestion, Nasal discharge, Oral lesions, Sinus pain, Sore Throat, Epistaxis, Sneezing, Snoring, Tinnitus, Vertigo, Vocal changes, Other ALLERGY AND IMMUNOLOGY: No: Hives, Insect Bite Sensitivity, Itchy/Watery Eyes, Nasal Congestion, Post Nasal Drip, Seasonal Allergies, Other Hematological and Lymphatic: No: Bleeding Problems, Blood Clots, Blood Transfusions, Brusing, Night Sweats, Pallor, Swollen Lymph Nodes, Other ENDOCRINE: No: Breast Changes, Galactorrhea, Hair Pattern Changes, Hot Flashes , Malaise/lethargy, Mood Swings, Palpitations, Polydipsia/polyuria, Skin Changes , Temperature Intolerance, Unexpected Weight Changes, Other Breast: No New/Changing Breast Lumps, No Nipple changes, No Nipple discharge, No Other Respiratory: No: Cough, Hemoptysis, Orthopnea, Pleuritic Pain, Shortness of breath, SOB with excertion, Sputum Changes, Stridor, Tachypnea, Wheezing, Other Cardiovascular: No Chest Pain, No Palpitations, No Orthopnea, No Paroxysmal Noc. Dyspnea, No Edema, No Lt Headedness, No Other Gastrointestinal: Yes Vomiting, Yes Abdominal Pain Genitourinary: No Dysuria, No Frequency, No Incontinence, No Hematuria, No Retention, No Discharge, No Urgency, No Pain, No Flank Pain, No Other, No , No , No , No , No , No , No Musculoskeletal: No Gait Disturbance, No Joint Pain, No Joint Stiffness, No Joint Swelling, No Muscle Pain, No Muscular Weakness, No Pain In:, No Swelling In:, No Other Neurological: No Behavorial Changes, No Bowel/Bladder ControlChng, No Confusion , No Dizziness, No Gait Disturbance, No Headaches, No Impaired Coord/balance, No Memory Loss, No Numbness/Tingling, No Seizures, No Speech Problems, No Tremors, No Visual Changes, No Weakness, No Other Skin: No Dry Skin, No Eczema, No Hair Changes, No Lumps, No Mole Changes, No Mottling, No Nail Changes, No Pruritus, No Rash, No Skin Lesion Changes, No Other, No Acne Physical Exam General: Oriented X3, Other (in discomfort, bucket at bedside) HEENT: PERRLA Lungs: Clear to auscultation, Normal air movement Heart: S1S2, RRR, no thrills, no rubs, no gallops Cardiovascular: S1, S2 Breasts: Normal Abdomen: Normal bowel sounds, Soft, No tenderness, No hepatosplenomegaly, No masses Rectal Exam: not examined PELVIC: Nml ext genitalia Extremities: No clubbing, No cyanosis, No edema, Normal pulses, No tenderness/ swelling Skin: No rashes, No breakdown, No significant lesion Neuro: Normal gait, Normal speech, Strength at 5/5 X4 ext, Normal tone, Sensation intact, Cranial nerves 3-12 NL, Reflexes 2+ Vitals Vitals Vital Signs Date Time Temp Pulse Resp B/P (MAP) Pulse Ox O2 Delivery O2 Flow Rate FiO2 03/03/17 07:27 92 16 142/97 (112) 100 Room Air Labs Labs Laboratory Tests Test 03/03/17 04:08 03/03/17 04:52 03/03/17 05:00 Bedside Urine HCG, Qualitative Hcg negative (Negative) Urine Collection Type Unknown Urine Color Yellow Urine Clarity Cloudy Urine pH 6.0 Urine Specific [place] >=1.030 Urine Protein 100 mg/dL (NEG-TRACE) Urine Glucose (UA) Negative mg/dL (NEG) Urine Ketones (Stick) >=80 mg/dL (NEG) Urine Blood Negative (NEG) Urine Nitrite Negative (NEG) Urine Bilirubin Negative (NEG) Urine Urobilinogen Dipstick 1.0 mg/dL (0.2 mg/dL) Urine Leukocyte Esterase Moderate (NEG) Urine RBC Occ /HPF (0-2) Urine WBC 5-10 /HPF (0-4) Urine Squamous Epithelial Cells Many /LPF Urine Bacteria Many /HPF (0-FEW) Urine Mucus Mod /LPF Urine Opiates Screen Neg (NEG) Urine Methadone Screen Neg (NEG) Urine Barbiturates Neg (NEG) Urine Phencyclidine Screen Neg (NEG) Urine Amphetamine/Methamphetamine Neg (NEG) Urine Benzodiazepines Screen Pos (NEG) Urine Cocaine Screen Neg (NEG) Urine Cannabinoids Screen Pos (NEG) Urine Ethyl Alcohol Neg (NEG) White Blood Count 11.3 x10^3/uL (4.0-11.0) Red Blood Count 4.78 x10^6/uL (3.50-5.40) Hemoglobin 14.2 g/dL (12.0-15.5) Hematocrit 41.4 % (36.0-47.0) Mean Corpuscular Volume 87 fL (79-100) Mean Corpuscular Hemoglobin 30 pg (25-35) Mean Corpuscular Hemoglobin Concent 34 g/dL (31-37) Red Cell Distribution Width 13.2 % (11.5-14.5) Platelet Count 190 x10^3/uL (140-400) Neutrophils (%) (Auto) 69 % (31-73) Lymphocytes (%) (Auto) 23 % (24-48) Monocytes (%) (Auto) 7 % (0-9) Eosinophils (%) (Auto) 0 % (0-3) Basophils (%) (Auto) 1 % (0-3) Neutrophils # (Auto) 7.8 x10^3uL (1.8-7.7) Lymphocytes # (Auto) 2.6 x10^3/uL (1.0-4.8) Monocytes # (Auto) 0.7 x10^3/uL (0.0-1.1) Eosinophils # (Auto) 0.0 x10^3/uL (0.0-0.7) Basophils # (Auto) 0.1 x10^3/uL (0.0-0.2) Sodium Level 139 mmol/L (136-145) Potassium Level 3.4 mmol/L (3.5-5.1) Chloride Level 103 mmol/L (98-107) Carbon Dioxide Level 17 mmol/L (21-32) Anion Gap 19 (6-14) Blood Urea Nitrogen 11 mg/dL (7-20) Creatinine 0.7 mg/dL (0.6-1.0) Estimated GFR (Cockcroft-Gault) 103.7 BUN/Creatinine Ratio 16 (6-20) Glucose Level 161 mg/dL (70-99) Calcium Level 9.6 mg/dL (8.5-10.1) Total Bilirubin 1.1 mg/dL (0.2-1.0) Aspartate Amino Transf (AST/SGOT) 19 U/L (15-37) Alanine Aminotransferase (ALT/SGPT) 17 U/L (14-59) Alkaline Phosphatase 64 U/L (46-116) Total Protein 8.0 g/dL (6.4-8.2) Albumin 4.5 g/dL (3.4-5.0) Albumin/Globulin Ratio 1.3 (1.0-1.7) Lipase 76 U/L (73-393) Laboratory Tests Test 03/03/17 04:08 03/03/17 04:52 03/03/17 05:00 Bedside Urine HCG, Qualitative Hcg negative (Negative) Urine Collection Type Unknown Urine Color Yellow Urine Clarity Cloudy Urine pH 6.0 Urine Specific [place] >=1.030 Urine Protein 100 mg/dL (NEG-TRACE) Urine Glucose (UA) Negative mg/dL (NEG) Urine Ketones (Stick) >=80 mg/dL (NEG) Urine Blood Negative (NEG) Urine Nitrite Negative (NEG) Urine Bilirubin Negative (NEG) Urine Urobilinogen Dipstick 1.0 mg/dL (0.2 mg/dL) Urine Leukocyte Esterase Moderate (NEG) Urine RBC Occ /HPF (0-2) Urine WBC 5-10 /HPF (0-4) Urine Squamous Epithelial Cells Many /LPF Urine Bacteria Many /HPF (0-FEW) Urine Mucus Mod /LPF Urine Opiates Screen Neg (NEG) Urine Methadone Screen Neg (NEG) Urine Barbiturates Neg (NEG) Urine Phencyclidine Screen Neg (NEG) Urine Amphetamine/Methamphetamine Neg (NEG) Urine Benzodiazepines Screen Pos (NEG) Urine Cocaine Screen Neg (NEG) Urine Cannabinoids Screen Pos (NEG) Urine Ethyl Alcohol Neg (NEG) White Blood Count 11.3 x10^3/uL (4.0-11.0) Red Blood Count 4.78 x10^6/uL (3.50-5.40) Hemoglobin 14.2 g/dL (12.0-15.5) Hematocrit 41.4 % (36.0-47.0) Mean Corpuscular Volume 87 fL (79-100) Mean Corpuscular Hemoglobin 30 pg (25-35) Mean Corpuscular Hemoglobin Concent 34 g/dL (31-37) Red Cell Distribution Width 13.2 % (11.5-14.5) Platelet Count 190 x10^3/uL (140-400) Neutrophils (%) (Auto) 69 % (31-73) Lymphocytes (%) (Auto) 23 % (24-48) Monocytes (%) (Auto) 7 % (0-9) Eosinophils (%) (Auto) 0 % (0-3) Basophils (%) (Auto) 1 % (0-3) Neutrophils # (Auto) 7.8 x10^3uL (1.8-7.7) Lymphocytes # (Auto) 2.6 x10^3/uL (1.0-4.8) Monocytes # (Auto) 0.7 x10^3/uL (0.0-1.1) Eosinophils # (Auto) 0.0 x10^3/uL (0.0-0.7) Basophils # (Auto) 0.1 x10^3/uL (0.0-0.2) Sodium Level 139 mmol/L (136-145) Potassium Level 3.4 mmol/L (3.5-5.1) Chloride Level 103 mmol/L (98-107) Carbon Dioxide Level 17 mmol/L (21-32) Anion Gap 19 (6-14) Blood Urea Nitrogen 11 mg/dL (7-20) Creatinine 0.7 mg/dL (0.6-1.0) Estimated GFR (Cockcroft-Gault) 103.7 BUN/Creatinine Ratio 16 (6-20) Glucose Level 161 mg/dL (70-99) Calcium Level 9.6 mg/dL (8.5-10.1) Total Bilirubin 1.1 mg/dL (0.2-1.0) Aspartate Amino Transf (AST/SGOT) 19 U/L (15-37) Alanine Aminotransferase (ALT/SGPT) 17 U/L (14-59) Alkaline Phosphatase 64 U/L (46-116) Total Protein 8.0 g/dL (6.4-8.2) Albumin 4.5 g/dL (3.4-5.0) Albumin/Globulin Ratio 1.3 (1.0-1.7) Lipase 76 U/L (73-393) VTE Prophylaxis Ordered VTE Prophylaxis Devices: Yes VTE Pharmacological Prophylaxi: Yes Assessment/Plan Assessment/Plan 1. CYclic vomiting episode, normal GET (11/2015) 2. Depression on elavil 3. MArijuana use 4. Hypokalemia from GI loss 5. REactive leukocytosis 6. MIld gap acidosis sec to GI loss 7. Ketonuria PLAN: IVF given lab abN Anti emetics Liquid diet then ADAT If sxs persist despite medical mx might need to re image rule out obstruction though unlikely given over all clinical history and picture MIght consider GET again? though will not change mx SHE is NON diabetic [place] of reglan 10 mg scheduled Seen at GEOVANNI CARO MD March 03, 2017 09:02
--- NOTE | 2017-03-03 09:17 | ACF ---
Admission Forms Criteria VOMITING Clinical Indications for Admission to Inpatient Care ( Place 'X' for any and all applicable criteria): Admission is indicated for 1 or more of the following(1)(2)(3): [ ]I. Complete or partial gastrointestinal obstruction [ ]II. Vomiting due to significant metabolic derangement (eg, severe hypercalcemia, diabetic ketoacidosis) [ ]III. Other cause of vomiting requiring hospitalization (eg, poisoning, increased intracranial pressure) [X]IV. Inpatient admission required rather than observation care because of 1 or more of the following [ ]i) Hemodynamic instability [X]ii) Vomiting that is severe or persistent indicated by 1 or more of the following 1) Numerous episodes of vomiting in past 24hours (eg, every 1 to 2 hours) 2) Suggests severe underlying cause or complication (eg , projectile, feculent, bilious, coffee ground, bloody) 3) Appropriate antiemetic treatment (eg, repeated oral or parenteral dosing) does not sufficiently reduce vomiting within 12 to 24 hours of treatment X 4) Treatment regimen necessary to adequately control vomiting requires inpatient level of care (eg, not immediately available in outpatient setting) [ ]iii) Severe electrolyte abnormalities requiring inpatient care [ ]iv) Severe pain requiring acute inpatient management( Continuous or frequent (eg, every 2 to 4 hours) parental analgesics or analgesic regimen that can only be performed or initiated in inpatient setting) [ ]v) High fever or infection requiring inpatient admission as indicated by 1 or more of the following(7)(8): [ ]1) Appropriate outpatient or observation care antimicrobial treatment unavailable, not effective, or not feasible [ ]2) Documented bacteremia [ ]3) Temp >104.9 degrees F (40.5 degrees C) (oral) [ ]4) Temp >103.1 degrees F (39.5 C) (oral) or <96.8 degrees F (36 C) (rectal) that does not respond to all emergency treatment measures [ ]vi) Acute renal failure [ ]vii) IV fluid required rather than oral rehydration to replace significant on going losses (greater than 3 L/m2 per day) [ ]viii) Parenteral nutrition regimen that must be implemented on inpatient basis [ ]ix) Other condition, treatment or monitoring requiring inpatient admission Extended stay beyond goal length of stay may be needed for(1)(4): [ ]a) Severe vomiting [ ]b) Persistent vomiting, vital sign changes, severe electrolyte imbalance , or diagnosed cause of vomiting that requires continued hospitalization (eg, gastrointestinal obstruction , increased intracranial pressure) [ ]c) Surgery to treat identified causes of vomiting (eg, bowel obstruction , intracranial process) [ ]d) Comorbid illness that requires inpatient care (eg, acute heart failure , renal failure) [ ]e) Need for inpatient endoscopy The original [facility] content created by [employer] has been revised. The portions of the content which have been revised are identified through the use of italic text or in bold, and [facility] has neither reviewed nor approved the modified material. All other unmodified content is copyright [facility]. Please see references footnoted in the original [facility] edition 2016 Admission Criteria Met?: Yes SHARA MARTIN March 03, 2017 09:17
[2017-03-03 09:46] VITALS: BP 145/107
[2017-03-03] MEDS: PROCHLORPERAZINE 10 MG/2 ML VIAL. IV PRN ×2 (09:49→16:19)
[2017-03-03] MEDS ORDERED: fentaNYL PF VIAL 100 MCG/2 ML VIAL IV PRN (10:15)
[2017-03-03] MEDS ORDERED: LORazepam 0.5 MG TABLET PO PRN (10:15)
[2017-03-03] MEDS ORDERED: HYDROcodone/APAP 5/325MG 1 TAB TABLET PO PRN (10:15)
[2017-03-03 11:00] VITALS: BP 127/93
[2017-03-03] MEDS: MORPHINE SULFATE 2 MG/ML DISP.SYRIN. IV PRN ×4 (11:03→19:02)
[2017-03-03] MEDS: METOCLOPRAMIDE 10 MG TABLET. PO SCH ×3 (11:30→21:00)
[2017-03-03] MEDS: ONDANSETRON PF 4 MG/2 ML VIAL. IV PRN ×2 (13:53→21:10)
[2017-03-03 14:35] VITALS: BP 106/62
[2017-03-03 19:00] VITALS: BP 106/63
[2017-03-03] MEDS ORDERED: AMITRIPTYLINE HCL 50 MG TABLET PO SCH (21:00)
[2017-03-03 23:31] VITALS: BP 110/66
[2017-03-04] MEDS: PROCHLORPERAZINE 10 MG/2 ML VIAL. IV PRN (01:25)
[2017-03-04] MEDS: MORPHINE SULFATE 2 MG/ML DISP.SYRIN. IV PRN ×3 (01:25→08:44)
[2017-03-04] MEDS: ONDANSETRON PF 4 MG/2 ML VIAL. IV PRN (06:34)
[2017-03-04 07:00] VITALS: BP 107/76
[2017-03-04] MEDS: IV NORMAL SALINE 1000ML BAG 1,000 ML IV SCH (07:34)
[2017-03-04] MEDS: METOCLOPRAMIDE 10 MG TABLET. PO SCH (07:35)
[2017-03-04] MEDS: FAMOTIDINE 20 MG TABLET. PO SCH (08:35)
--- NOTE | 2017-03-04 10:04 | PDOC3 ---
Discharge Summary Visit Information Date of Admission: March 03, 2017 Date of Discharge: March 04, 2017 Admitting Diagnosis Comment: 1. CYclic vomiting episode, normal GET (11/2015) 2. Depression on elavil 3. MArijuana use 4. Hypokalemia from GI loss 5. REactive leukocytosis 6. MIld gap acidosis sec to GI loss 7. Ketonuria PLAN: IVF given lab abN Anti emetics Liquid diet then ADAT If sxs persist despite medical mx might need to re image rule out obstruction though unlikely given over all clinical history and picture MIght consider GET again? though will not change mx SHE is NON diabetic [place] of reglan 10 mg scheduled Final Diagnosis Problems Medical Problems: (1) Cyclical vomiting Status: Acute Brief Hospital Course Allergies Allergies Coded Allergies Type Severity Reaction Last Updated Verified coconut Allergy Severe Anaphylaxis 01/22/17 Yes Vital Signs Vital Signs Date Time Temp Pulse Resp B/P (MAP) Pulse Ox O2 Delivery O2 Flow Rate FiO2 03/04/17 09:25 Room Air 03/04/17 08:44 16 03/04/17 07:00 97.8 87 107/76 (86) 98 97.8 Lab Results Laboratory Tests Test 03/03/17 04:08 03/03/17 04:52 03/03/17 05:00 Bedside Urine HCG, Qualitative Hcg negative (Negative) Urine Collection Type Unknown Urine Color Yellow Urine Clarity Cloudy Urine pH 6.0 Urine Specific [place] >=1.030 Urine Protein 100 mg/dL (NEG-TRACE) Urine Glucose (UA) Negative mg/dL (NEG) Urine Ketones (Stick) >=80 mg/dL (NEG) Urine Blood Negative (NEG) Urine Nitrite Negative (NEG) Urine Bilirubin Negative (NEG) Urine Urobilinogen Dipstick 1.0 mg/dL (0.2 mg/dL) Urine Leukocyte Esterase Moderate (NEG) Urine RBC Occ /HPF (0-2) Urine WBC 5-10 /HPF (0-4) Urine Squamous Epithelial Cells Many /LPF Urine Bacteria Many /HPF (0-FEW) Urine Mucus Mod /LPF Urine Opiates Screen Neg (NEG) Urine Methadone Screen Neg (NEG) Urine Barbiturates Neg (NEG) Urine Phencyclidine Screen Neg (NEG) Urine Amphetamine/Methamphetamine Neg (NEG) Urine Benzodiazepines Screen Pos (NEG) Urine Cocaine Screen Neg (NEG) Urine Cannabinoids Screen Pos (NEG) Urine Ethyl Alcohol Neg (NEG) White Blood Count 11.3 x10^3/uL (4.0-11.0) Red Blood Count 4.78 x10^6/uL (3.50-5.40) Hemoglobin 14.2 g/dL (12.0-15.5) Hematocrit 41.4 % (36.0-47.0) Mean Corpuscular Volume 87 fL (79-100) Mean Corpuscular Hemoglobin 30 pg (25-35) Mean Corpuscular Hemoglobin Concent 34 g/dL (31-37) Red Cell Distribution Width 13.2 % (11.5-14.5) Platelet Count 190 x10^3/uL (140-400) Neutrophils (%) (Auto) 69 % (31-73) Lymphocytes (%) (Auto) 23 % (24-48) Monocytes (%) (Auto) 7 % (0-9) Eosinophils (%) (Auto) 0 % (0-3) Basophils (%) (Auto) 1 % (0-3) Neutrophils # (Auto) 7.8 x10^3uL (1.8-7.7) Lymphocytes # (Auto) 2.6 x10^3/uL (1.0-4.8) Monocytes # (Auto) 0.7 x10^3/uL (0.0-1.1) Eosinophils # (Auto) 0.0 x10^3/uL (0.0-0.7) Basophils # (Auto) 0.1 x10^3/uL (0.0-0.2) Sodium Level 139 mmol/L (136-145) Potassium Level 3.4 mmol/L (3.5-5.1) Chloride Level 103 mmol/L (98-107) Carbon Dioxide Level 17 mmol/L (21-32) Anion Gap 19 (6-14) Blood Urea Nitrogen 11 mg/dL (7-20) Creatinine 0.7 mg/dL (0.6-1.0) Estimated GFR (Cockcroft-Gault) 103.7 BUN/Creatinine Ratio 16 (6-20) Glucose Level 161 mg/dL (70-99) Calcium Level 9.6 mg/dL (8.5-10.1) Total Bilirubin 1.1 mg/dL (0.2-1.0) Aspartate Amino Transf (AST/SGOT) 19 U/L (15-37) Alanine Aminotransferase (ALT/SGPT) 17 U/L (14-59) Alkaline Phosphatase 64 U/L (46-116) Total Protein 8.0 g/dL (6.4-8.2) Albumin 4.5 g/dL (3.4-5.0) Albumin/Globulin Ratio 1.3 (1.0-1.7) Lipase 76 U/L (73-393) Brief Hospital Course Ms. Donis is a 21 old [sex] who presented with [ ] 21 y.o female, known cyclic vomiting syndrome, claims been vomiting since age 1, last GET was 09/2016 and was normal, SHe has a bucket at bedside, started last night 9 PM, unable to participate with H and P much while being seen at ER. NO diarrhea, no recent sick contacts or travel. LAbs show ketonuria and very concentrated urine with high specific gravity, mild AGAP at 19, K 3.4, WBC 11,.3.Only on elavil at home and anti emetics. She did test positive for cannabinoids on UDS. Did well after overnight stay, tolerating liquid diet. Wants tog o home to attend brother's gradn today Discharge Information Condition at Discharge: Improved, Stable Disposition/Orders: D/C to Home Scheduled Amitriptyline Hcl (Amitriptyline Hcl), 1 TAB PO QHS Famotidine (Famotidine), 20 MG PO DAILY Ondansetron (Zofran Odt), 1 TAB SL Q8HRS Prochlorperazine Maleate (Compazine), 10 MG PO Q8HRS GEOVANNI PENNINGTON MD March 04, 2017 10:04
== END 2017-03-04 10:50 | disposition home or self-care (01) | DRG 103 ==
LOC: ER 04:43 → 5 SOUTH 07:59
PROVIDERS: ADMIT Internal Medicine; ATTEND Internal Medicine
DX: G43.A0 Cyclical vomiting, in migraine, not intractable (principal); E87.2 Acidosis; D72.828 Other elevated white blood cell count; E87.6 Hypokalemia; F12.90 Cannabis use, unspecified, uncomplicated; F32.9 Major depressive disorder, single episode, unspecified; F41.9 Anxiety disorder, unspecified; J45.909 Unspecified asthma, uncomplicated; Z83.3 Family history of diabetes mellitus; Z90.49 Acquired absence of other specified parts of digestive tract
CPT/HCPCS: 36415; 80053; 81001; 81025; 83690; 85027; 87086; 87186; 93005; 96361; 96365; 96375; C9113; G0481; J0780; J2060; J2270; J2405; J2765; J3360; J3490; J7030; J7040; J8597; 99285-25

== ENCOUNTER 2017-03-05 07:41 | Inpatient (IN) | payer SELFPAY ==
[~2017-03-05] VITALS: Ht 162.6 cm; Wt 59.9 kg
--- NOTE | 2017-03-05 07:51 | PHYS DOC ---
Past Medical History Past Medical History: Anxiety, Asthma, Cyclic Vomiting, Depression Additional Past Medical Histor: cyclic vomiting syndrome Past Surgical History: Cholecystectomy Alcohol Use: None Drug Use: Marijuana Adult General Chief Complaint Chief Complaint: ABDOMINAL PAIN HPI HPI Patient is a 21 year old female who presents with abdominal pain with nausea and vomiting. She states she has cyclic vomiting syndrome and this is her normal presentation. She states she is [facility] days ago. She states it flared up this morning and her Zofran at home was not working. She denies these symptoms are different than her normal symptoms. She is requesting Protonix, Ativan and antinausea meds. She also states that normally she gets some pain meds when this occurs. She denies any fevers chills, any blood in her vomit or stools. Review of Systems Review of Systems Constitutional: Denies fever or chills [] Eyes: Denies change in visual acuity, redness, or eye pain [] HENT: Denies nasal congestion or sore throat [] Respiratory: Denies cough or shortness of breath [] Cardiovascular: No additional information not addressed in HPI [] GI: Positive for abdominal pain, nausea, vomiting, denies any bloody stools or diarrhea [] : Denies dysuria or hematuria [] Musculoskeletal: Denies back pain or joint pain [] Integument: Denies rash or skin lesions [] Neurologic: Denies headache, focal weakness or sensory changes [] Endocrine: Denies polyuria or polydipsia [] Current Medications Current Medications Current Medications Medications (Trade) Dose Ordered Sig/Arnaldo Start Time Stop Time Status Last Admin Dose Admin Lorazepam (Ativan) 1 mg 1X ONCE 03/05/17 08:15 03/05/17 08:16 DC 03/05/17 08:18 1 MG Magnesium Sulfate/ Dextrose 100 ml @ 100 mls/hr 1X ONCE 03/05/17 09:45 03/05/17 10:44 DC 03/05/17 11:36 100 MLS/HR Morphine Sulfate 4 mg PRN Q15MIN PRN 03/05/17 09:00 03/06/17 08:59 03/05/17 09:56 4 MG Ondansetron HCl (Zofran) 4 mg 1X ONCE 03/05/17 10:15 03/05/17 10:16 DC 03/05/17 10:12 4 MG Pantoprazole Sodium (Protonix Vial) 40 mg 1X ONCE 03/05/17 08:15 03/05/17 08:16 DC 03/05/17 08:17 40 MG Potassium Chloride 100 ml @ 100 mls/hr Q1H 03/05/17 09:00 03/05/17 10:59 DC 03/05/17 09:56 100 MLS/HR Promethazine HCl 12.5 mg/Sodium Chloride 50.5 ml @ 101 mls/hr 1X ONCE 03/05/17 08:30 03/05/17 08:59 DC 03/05/17 08:23 101 MLS/HR Promethazine HCl 25 mg/Sodium Chloride 51 ml @ 101 mls/hr 1X ONCE 03/05/17 10:30 03/05/17 11:00 DC Sodium Chloride 1,000 ml @ 1,000 mls/hr Q1H 03/05/17 08:08 03/05/17 09:07 DC 03/05/17 08:17 1,000 MLS/HR Allergies Allergies Allergies Coded Allergies Type Severity Reaction Last Updated Verified coconut Allergy Severe Anaphylaxis 01/22/17 Yes Physical Exam Physical Exam Constitutional: Well developed, well nourished, no acute distress, non-toxic appearance. [] HENT: Normocephalic, atraumatic, bilateral external ears normal, oropharynx moist, no oral exudates, nose normal. [] Eyes: PERRLA, EOMI, conjunctiva normal, no discharge. [] Neck: Normal range of motion, no tenderness, supple, no stridor. [] Cardiovascular:Heart rate regular rhythm, no murmur [] Lungs & Thorax: Bilateral breath sounds clear to auscultation [] Abdomen: Bowel sounds normal, soft, tender to palpation in the epigastric area, no rebound or guarding, no masses, no pulsatile masses. [] Skin: Warm, dry, no erythema, no rash. [] Back: No tenderness, no CVA tenderness. [] Extremities: No tenderness, no cyanosis, no clubbing, ROM intact, no edema. [] Neurologic: Alert and oriented X 3, normal motor function, normal sensory function, no focal deficits noted. [] Psychologic: Affect normal, judgement normal, mood normal. [] Current Patient Data Vital Signs Vital Signs Date Time Temp Pulse Resp B/P (MAP) Pulse Ox O2 Delivery O2 Flow Rate FiO2 03/05/17 11:32 113 131/72 (91) 03/05/17 10:37 18 99 Room Air 03/05/17 08:00 97.8 97.8 Lab Values Laboratory Tests Test 03/05/17 07:05 03/05/17 08:00 03/05/17 08:10 POC Urine HCG, Qualitative Hcg negative (Negative) Urine Collection Type Unknown Urine Color Yellow Urine Clarity Turbid Urine pH 6.0 Urine Specific [place] >=1.030 Urine Protein Negative mg/dL (NEG-TRACE) Urine Glucose (UA) Negative mg/dL (NEG) Urine Ketones (Stick) Negative mg/dL (NEG) Urine Blood Negative (NEG) Urine Nitrite Negative (NEG) Urine Bilirubin Small (NEG) Urine Urobilinogen Dipstick 0.2 mg/dL (0.2 mg/dL) Urine Leukocyte Esterase Negative (NEG) Urine RBC Occ /HPF (0-2) Urine WBC 5-10 /HPF (0-4) Urine Squamous Epithelial Cells Many /LPF Urine Bacteria Moderate /HPF (0-FEW) Urine Mucus Marked /LPF Urine Opiates Screen Pos (NEG) Urine Methadone Screen Neg (NEG) Urine Barbiturates Neg (NEG) Urine Phencyclidine Screen Neg (NEG) Urine Amphetamine/Methamphetamine Neg (NEG) Urine Benzodiazepines Screen Neg (NEG) Urine Cocaine Screen Neg (NEG) Urine Cannabinoids Screen Pos (NEG) Urine Ethyl Alcohol Neg (NEG) White Blood Count 10.4 x10^3/uL (4.0-11.0) Red Blood Count 4.58 x10^6/uL (3.50-5.40) Hemoglobin 13.7 g/dL (12.0-15.5) Hematocrit 39.9 % (36.0-47.0) Mean Corpuscular Volume 87 fL (79-100) Mean Corpuscular Hemoglobin 30 pg (25-35) Mean Corpuscular Hemoglobin Concent 34 g/dL (31-37) Red Cell Distribution Width 13.8 % (11.5-14.5) Platelet Count 194 x10^3/uL (140-400) Neutrophils (%) (Auto) 76 % (31-73) H Lymphocytes (%) (Auto) 18 % (24-48) L Monocytes (%) (Auto) 6 % (0-9) Eosinophils (%) (Auto) 0 % (0-3) Basophils (%) (Auto) 0 % (0-3) Neutrophils # (Auto) 7.8 x10^3uL (1.8-7.7) H Lymphocytes # (Auto) 1.8 x10^3/uL (1.0-4.8) Monocytes # (Auto) 0.7 x10^3/uL (0.0-1.1) Eosinophils # (Auto) 0.0 x10^3/uL (0.0-0.7) Basophils # (Auto) 0.0 x10^3/uL (0.0-0.2) Urine Test Negative (NEG) Sodium Level 140 mmol/L (136-145) Potassium Level 2.9 mmol/L (3.5-5.1) *L Chloride Level 103 mmol/L (98-107) Carbon Dioxide Level 22 mmol/L (21-32) Anion Gap 15 (6-14) H Blood Urea Nitrogen 7 mg/dL (7-20) Creatinine 0.8 mg/dL (0.6-1.0) Estimated GFR (Cockcroft-Gault) 88.9 BUN/Creatinine Ratio 9 (6-20) Glucose Level 129 mg/dL (70-99) H Calcium Level 9.4 mg/dL (8.5-10.1) Magnesium Level 1.6 mg/dL (1.8-2.4) L Total Bilirubin 1.1 mg/dL (0.2-1.0) H Aspartate Amino Transferase (AST) 18 U/L (15-37) Alanine Aminotransferase (ALT) 17 U/L (14-59) Alkaline Phosphatase 60 U/L (46-116) Total Protein 8.0 g/dL (6.4-8.2) Albumin 4.2 g/dL (3.4-5.0) Albumin/Globulin Ratio 1.1 (1.0-1.7) Lipase 65 U/L (73-393) L Laboratory Tests 03/05/17 08:10 Laboratory Tests 03/05/17 08:10 EKG EKG [] Radiology/Procedures Radiology/Procedures [] Impressions: Hypokalemia Hypomagnesia Intractable nausea vomiting Course & Med Decision Making Course & Med Decision Making Pertinent Labs and Imaging studies reviewed. (See chart for details) She presents with sore her typical symptoms for her cyclic vomiting syndrome. She received Phenergan, Zofran, IV fluids, her potassium and magnesium was replaced. She is being admitted for uncontrollable nausea vomiting. Spoke Dr. rey and wrote interim orders. She is in stable condition at this time. Dragon Disclaimer Dragon Disclaimer This electronic medical record was generated, in whole or in part, using a voice recognition dictation system. Departure Departure Impression: Primary Impression: Intractable nausea and vomiting Disposition: ADMITTED INPATIENT Admitting Physician: Jessie Rey Condition: STABLE Referrals: NO PCP (PCP) NATALIE DOTY MD March 05, 2017 07:50
[2017-03-05] MEDS ORDERED: IV NORMAL SALINE 1000ML BAG 1,000 ML IV SCH (08:08)
[2017-03-05] MEDS ORDERED: PANTOPRAZOLE IV PUSH 40 MG VIAL. IVP ONE (08:15)
[2017-03-05 08:19] LABS: BILIRUBIN,URINE SMALL (NEG); GLUCOSE,URINE NEGATIVE (NEG); NITRITE,URINE NEGATIVE (NEG); PROTEIN,URINE NEGATIVE (NEG-TRACE); UROBILINOGEN,URINE 0.2 mg/dL (0.2 mg/dL)
[2017-03-05 08:20] LABS: BASO % 0 % (0-3); EOS % 0 % (0-3); HEMATOCRIT 39.9 % (36.0-47.0); HEMOGLOBIN 13.7 g/dL (12.0-15.5); LYMPH # 1.8 x10^3/uL (1.0-4.8); LYMPH % 18 % (24-48); MEAN CORPUSCULAR HEMOGLOBIN 30 pg (25-35); MEAN CORPUSCULAR HGB CONC 34 g/dL (31-37); MEAN CORPUSCULAR VOLUME 87 fL (79-100); MONO % 6 % (0-9); NEUT % 76 % (31-73); PLATELET COUNT 194 x10^3/uL (140-400); RED BLOOD COUNT 4.58 x10^6/uL (3.50-5.40); RED CELL DISTRIBUTION WIDTH 13.8 % (11.5-14.5); WHITE BLOOD COUNT 10.4 x10^3/uL (4.0-11.0)
[2017-03-05 08:28] LABS: BARBITURATES NEG (NEG); BENZODIAZEPINES NEG (NEG); CANNABINOIDS POS (NEG); COCAINE NEG (NEG); METHADONE NEG (NEG); OPIATES POS (NEG); PHENCYCLIDINE NEG (NEG)
[2017-03-05] MEDS ORDERED: PROMETHAZINE 12.5 MG in IV NORMAL SALINE 50ML 50 ML IV ONE (08:30)
[2017-03-05 08:32] LABS: ALBUMIN 4.2 g/dL (3.4-5.0); ALBUMIN/GLOBULIN RATIO 1.1 (1.0-1.7); CALCIUM 9.4 mg/dL (8.5-10.1); CREATININE 0.8 mg/dL (0.6-1.0); GFR 88.9; TOTAL BILIRUBIN 1.1 mg/dL (0.2-1.0)
[2017-03-05 08:33] LABS: RBC,URINE OCC /HPF (0-2)
[2017-03-05 08:34] LABS: BACTERIA,URINE MODERATE /HPF (0-FEW); SQUAMOUS EPITHELIAL CELL,UR MANY /LPF
[2017-03-05 08:35] LABS: POTASSIUM 2.9 mmol/L (3.5-5.1)
[2017-03-05] MEDS: POTASSIUM CHLORIDE 10MEQ 100 ML IV SCH ×2 (08:51→09:56)
[2017-03-05] MEDS: MORPHINE SULFATE 4 MG/ML DISP.SYRIN. IV/SQ PRN ×2 (09:02→09:56)
[2017-03-05 09:41] LABS: NEG OBC UR NEG; POS OBC UR POS
[2017-03-05] MEDS ORDERED: MAGNESIUM SULFATE 1GM 100 ML IV ONE (09:45)
[2017-03-05] MEDS ORDERED: ONDANSETRON PF 4 MG/2 ML VIAL. IV ONE (10:15)
[2017-03-05] MEDS ORDERED: PROMETHAZINE 25 MG in IV NORMAL SALINE 50ML 50 ML IV ONE (10:30)
[2017-03-05] MEDS ORDERED: ONDANSETRON PF 4 MG/2 ML VIAL. IV PRN (12:00)
[2017-03-05] MEDS ORDERED: IV DEXTROSE 5 %-0.45 % NACL 1,000 ML IV ONE (12:00)
--- NOTE | 2017-03-05 12:06 | ACF ---
Admit Criteria Forms Admit Criteria Forms Admit Criteria Forms VOMITING Clinical Indications for Admission to Inpatient Care ( Place 'X' for any and all applicable criteria): Admission is indicated for 1 or more of the following(1)(2)(3): [ ]I. Complete or partial gastrointestinal obstruction [ ]II. Vomiting due to significant metabolic derangement (eg, severe hypercalcemia, diabetic ketoacidosis) [ ]III. Other cause of vomiting requiring hospitalization (eg, poisoning, increased intracranial pressure) [X]IV. Inpatient admission required rather than observation care because of 1 or more of the following [ ]i) Hemodynamic instability [X]ii) Vomiting that is severe or persistent indicated by 1 or more of the following 1) Numerous episodes of vomiting in past 24hours (eg, every 1 to 2 hours) 2) Suggests severe underlying cause or complication (eg , projectile, feculent, bilious, coffee ground, bloody) 3) Appropriate antiemetic treatment (eg, repeated oral or parenteral dosing) does not sufficiently reduce vomiting within 12 to 24 hours of treatment 4) Treatment regimen necessary to adequately control vomiting requires inpatient level of care (eg, not immediately available in outpatient setting) [X]iii) Severe electrolyte abnormalities requiring inpatient care [X]iv) Severe pain requiring acute inpatient management( Continuous or frequent (eg, every 2 to 4 hours) parental analgesics or analgesic regimen that can only be performed or initiated in inpatient setting) [ ]v) High fever or infection requiring inpatient admission as indicated by 1 or more of the following(7)(8): [ ]1) Appropriate outpatient or observation care antimicrobial treatment unavailable, not effective, or not feasible [ ]2) Documented bacteremia [ ]3) Temp >104.9 degrees F (40.5 degrees C) (oral) [ ]4) Temp >103.1 degrees F (39.5 C) (oral) or <96.8 degrees F (36 C) (rectal) that does not respond to all emergency treatment measures [ ]vi) Acute renal failure [ ]vii) IV fluid required rather than oral rehydration to replace significant on going losses (greater than 3 L/m2 per day) [ ]viii) Parenteral nutrition regimen that must be implemented on inpatient basis [ ]ix) Other condition, treatment or monitoring requiring inpatient admission Extended stay beyond goal length of stay may be needed for(1)(4): [ ]a) Severe vomiting [ ]b) Persistent vomiting, vital sign changes, severe electrolyte imbalance , or diagnosed cause of vomiting that requires continued hospitalization (eg, gastrointestinal obstruction , increased intracranial pressure) [ ]c) Surgery to treat identified causes of vomiting (eg, bowel obstruction , intracranial process) [ ]d) Comorbid illness that requires inpatient care (eg, acute heart failure , renal failure) [ ]e) Need for inpatient endoscopy The original [employer] content created by [employer] has been revised. The portions of the content which have been revised are identified through the use of italic text or in bold, and [facility] has neither reviewed nor approved the modified material. All other unmodified content is copyright [employer]. Please see references footnoted in the original [employer] edition 2016 MALKA MCFARLAND March 05, 2017 12:06
[2017-03-05] MEDS: MORPHINE SULFATE 4 MG/ML DISP.SYRIN. IV PRN ×5 (13:32→23:30)
--- NOTE | 2017-03-05 13:36 | PDOC1 ---
History and Physical Date of Admission Date of Admission today Identification/Chief Complaint Chief Complaint emesis Problems: Source Source: Caregiver, Chart review, Patient History of Present Illness History of Present Illness 21 F cyclic vomiter, I just dcd yesterday, admitted bec of vomiting and K 2.9 My dc dx yesterday was: 1. CYclic vomiting episode, normal GET (11/2015) 2. Depression on elavil 3. MArijuana use 4. Hypokalemia from GI loss 5. REactive leukocytosis 6. MIld gap acidosis sec to GI loss 7. Ketonuria TOday, K 2.9, got 20 IV at ER MAg 1.6 got 1 gm at ER mag sulfate Walking around the halls, demanding pain meds, 07/27 abd pain claims She did eat crackers then vomited in her room - HAs been vomting since age 1 - on elavil 50 qhs NON DM Past Medical History Psych: Anxiety, Panic Endocrine: Other (cyclic vomiting) Past Surgical History Past Surgical History: Cholecystectomy Family History Family History: Diabetes, Heart Disease, Other Family History: Grandparents Social History Smoke: No ALCOHOL: none Drugs: Marijuana Current Problem List Problem List Problems Medical Problems: (1) Intractable nausea and vomiting Status: Acute Problems: Current Medications Current Medications Current Medications Sodium Chloride 1,000 ml @ 1,000 mls/hr Q1H IV Last administered on 03/05/17 08:17; Start 03/05/17 at 08:08; Stop 03/05/17 at 09:07; Status DC Lorazepam (Ativan) 1 mg 1X ONCE IV Last administered on 03/05/17 08:18; Start 03/05/17 at 08:15; Stop 03/05/17 at 08:16; Status DC Promethazine HCl 12.5 mg/Sodium Chloride 50.5 ml @ 101 mls/hr 1X ONCE IV Last administered on 03/05/17 08:23; Start 03/05/17 at 08:30; Stop 03/05/17 at 08:59; Status DC Pantoprazole Sodium (Protonix Vial) 40 mg 1X ONCE IVP Last administered on 08:17; Start 03/05/17 at 08:15; Stop 03/05/17 at 08:16; Status DC Potassium Chloride 100 ml @ 100 mls/hr Q1H IV Last administered on 03/05/17 09:56; Start 03/05/17 at 09:00; Stop 03/05/17 at 10:59; Status DC Morphine Sulfate 4 mg PRN Q15MIN PRN IV/SQ PAIN GREATER THAN 3/10 Last administered on 03/05/17 09:56; Start 03/05/17 at 09:00; Stop 03/06/17 at 08:59 Magnesium Sulfate/ Dextrose 100 ml @ 100 mls/hr 1X ONCE IV Last administered on 03/05/17 11:36; Start 03/05/17 at 09:45; Stop 03/05/17 at 10:44; Status DC Ondansetron HCl (Zofran) 4 mg 1X ONCE IV Last administered on 03/05/17 10:12 ; Start 03/05/17 at 10:15; Stop 03/05/17 at 10:16; Status DC Promethazine HCl 25 mg/Sodium Chloride 51 ml @ 101 mls/hr 1X ONCE IV Last administered on 03/05/17 13:22; Start 03/05/17 at 10:30; Stop 03/05/17 at 11:00 ; Status DC Ondansetron HCl (Zofran) 4 mg PRN Q8HRS PRN IV NAUSEA/VOMITING; Start 03/05/17 at 12:00; Stop 03/06/17 at 11:59 Morphine Sulfate 4 mg PRN Q2HR PRN IV PAIN; Start 03/05/17 at 12:00; Stop 03/06 at 11:59 Dextrose/Sodium Chloride 1,000 ml @ 100 mls/hr 1X ONCE IV ; Start 03/05/17 at 12:00; Stop 03/05/17 at 21:59 Active Scripts Active Famotidine 20 Mg Tablet 20 Mg PO DAILY Zofran Odt (Ondansetron) 4 Mg Tab.rapdis 1 Tab SL Q8HRS Compazine (Prochlorperazine Maleate) 10 Mg Tablet 10 Mg PO Q8HRS Amitriptyline Hcl 50 Mg Tablet 1 Tab PO QHS Allergies Allergies: Coded Allergies: coconut (Verified Allergy, Severe, Anaphylaxis, 01/22/17) rash, hives, throat sweeling ROS General: No: Chills, Night Sweats, Fatigue, Malaise, Appetite, Other PSYCHOLOGICAL ROS: No: Anxiety, Behavioral Disorder, Concentration difficultie , Decreased libido, Depression, Disorientation, Hallucinations, Hostility, Irritablity, Memory difficulties, Mood Swings, Obsessive thoughts, Physical abuse, Sexual abuse, Sleep disturbances, Suicidal ideation, Other Eyes: No Blurry vision, No Decreased vision, No Double vision, No Dry eyes, No Excessive tearing, No Eye Pain, No Itchy Eyes, No Loss of vision, No Photophobia , No Scotomata, No Uses contacts, No Uses glasses, No Other HEENT: No: Heacaches, Visual Changes, Hearing change, Nasal congestion, Nasal discharge, Oral lesions, Sinus pain, Sore Throat, Epistaxis, Sneezing, Snoring, Tinnitus, Vertigo, Vocal changes, Other ALLERGY AND IMMUNOLOGY: No: Hives, Insect Bite Sensitivity, Itchy/Watery Eyes, Nasal Congestion, Post Nasal Drip, Seasonal Allergies, Other Hematological and Lymphatic: No: Bleeding Problems, Blood Clots, Blood Transfusions, Brusing, Night Sweats, Pallor, Swollen Lymph Nodes, Other ENDOCRINE: No: Breast Changes, Galactorrhea, Hair Pattern Changes, Hot Flashes , Malaise/lethargy, Mood Swings, Palpitations, Polydipsia/polyuria, Skin Changes , Temperature Intolerance, Unexpected Weight Changes, Other Respiratory: No: Cough, Hemoptysis, Orthopnea, Pleuritic Pain, Shortness of breath, SOB with excertion, Sputum Changes, Stridor, Tachypnea, Wheezing, Other Cardiovascular: No Chest Pain, No Palpitations, No Orthopnea, No Paroxysmal Noc. Dyspnea, No Edema, No Lt Headedness, No Other Gastrointestinal: Yes Nausea, Yes Vomiting, Yes Abdominal Pain Genitourinary: No Dysuria, No Frequency, No Incontinence, No Hematuria, No Retention, No Discharge, No Urgency, No Pain, No Flank Pain, No Other, No , No , No , No , No , No , No Musculoskeletal: No Gait Disturbance, No Joint Pain, No Joint Stiffness, No Joint Swelling, No Muscle Pain, No Muscular Weakness, No Pain In:, No Swelling In:, No Other Neurological: No Behavorial Changes, No Bowel/Bladder ControlChng, No Confusion , No Dizziness, No Gait Disturbance, No Headaches, No Impaired Coord/balance, No Memory Loss, No Numbness/Tingling, No Seizures, No Speech Problems, No Tremors, No Visual Changes, No Weakness, No Other Skin: No Dry Skin, No Eczema, No Hair Changes, No Lumps, No Mole Changes, No Mottling, No Nail Changes, No Pruritus, No Rash, No Skin Lesion Changes, No Other, No Acne Physical Exam General: Alert, Oriented X3, Cooperative, No acute distress HEENT: Atraumatic, PERRLA Lungs: Clear to auscultation, Normal air movement Heart: S1S2, no gallops Cardiovascular: S1, S2 Breasts: Normal Rectal Exam: not examined PELVIC: Nml ext genitalia Extremities: No clubbing, No cyanosis, No edema, Normal pulses, No tenderness/ swelling Skin: No rashes, No breakdown, No significant lesion Neuro: Normal gait, Normal speech, Strength at 5/5 X4 ext, Normal tone, Sensation intact, Cranial nerves 3-12 NL, Reflexes 2+ Psych/Mental Status: Mental status NL, Mood NL Vitals Vitals Vital Signs Date Time Temp Pulse Resp B/P (MAP) Pulse Ox O2 Delivery O2 Flow Rate FiO2 03/05/17 12:29 92 111/58 (75) 97 Room Air 03/05/17 10:37 18 03/05/17 08:00 97.8 97.8 Labs Labs Laboratory Tests Test 03/05/17 07:05 03/05/17 08:00 03/05/17 08:10 Bedside Urine HCG, Qualitative Hcg negative (Negative) Urine Collection Type Unknown Urine Color Yellow Urine Clarity Turbid Urine pH 6.0 Urine Specific [place] >=1.030 Urine Protein Negative mg/dL (NEG-TRACE) Urine Glucose (UA) Negative mg/dL (NEG) Urine Ketones (Stick) Negative mg/dL (NEG) Urine Blood Negative (NEG) Urine Nitrite Negative (NEG) Urine Bilirubin Small (NEG) Urine Urobilinogen Dipstick 0.2 mg/dL (0.2 mg/dL) Urine Leukocyte Esterase Negative (NEG) Urine RBC Occ /HPF (0-2) Urine WBC 5-10 /HPF (0-4) Urine Squamous Epithelial Cells Many /LPF Urine Bacteria Moderate /HPF (0-FEW) Urine Mucus Marked /LPF Urine Opiates Screen Pos (NEG) Urine Methadone Screen Neg (NEG) Urine Barbiturates Neg (NEG) Urine Phencyclidine Screen Neg (NEG) Urine Amphetamine/Methamphetamine Neg (NEG) Urine Benzodiazepines Screen Neg (NEG) Urine Cocaine Screen Neg (NEG) Urine Cannabinoids Screen Pos (NEG) Urine Ethyl Alcohol Neg (NEG) White Blood Count 10.4 x10^3/uL (4.0-11.0) Red Blood Count 4.58 x10^6/uL (3.50-5.40) Hemoglobin 13.7 g/dL (12.0-15.5) Hematocrit 39.9 % (36.0-47.0) Mean Corpuscular Volume 87 fL (79-100) Mean Corpuscular Hemoglobin 30 pg (25-35) Mean Corpuscular Hemoglobin Concent 34 g/dL (31-37) Red Cell Distribution Width 13.8 % (11.5-14.5) Platelet Count 194 x10^3/uL (140-400) Neutrophils (%) (Auto) 76 % (31-73) Lymphocytes (%) (Auto) 18 % (24-48) Monocytes (%) (Auto) 6 % (0-9) Eosinophils (%) (Auto) 0 % (0-3) Basophils (%) (Auto) 0 % (0-3) Neutrophils # (Auto) 7.8 x10^3uL (1.8-7.7) Lymphocytes # (Auto) 1.8 x10^3/uL (1.0-4.8) Monocytes # (Auto) 0.7 x10^3/uL (0.0-1.1) Eosinophils # (Auto) 0.0 x10^3/uL (0.0-0.7) Basophils # (Auto) 0.0 x10^3/uL (0.0-0.2) Urine Test Negative (NEG) Sodium Level 140 mmol/L (136-145) Potassium Level 2.9 mmol/L (3.5-5.1) Chloride Level 103 mmol/L (98-107) Carbon Dioxide Level 22 mmol/L (21-32) Anion Gap 15 (6-14) Blood Urea Nitrogen 7 mg/dL (7-20) Creatinine 0.8 mg/dL (0.6-1.0) Estimated GFR (Cockcroft-Gault) 88.9 BUN/Creatinine Ratio 9 (6-20) Glucose Level 129 mg/dL (70-99) Calcium Level 9.4 mg/dL (8.5-10.1) Magnesium Level 1.6 mg/dL (1.8-2.4) Total Bilirubin 1.1 mg/dL (0.2-1.0) Aspartate Amino Transf (AST/SGOT) 18 U/L (15-37) Alanine Aminotransferase (ALT/SGPT) 17 U/L (14-59) Alkaline Phosphatase 60 U/L (46-116) Total Protein 8.0 g/dL (6.4-8.2) Albumin 4.2 g/dL (3.4-5.0) Albumin/Globulin Ratio 1.1 (1.0-1.7) Lipase 65 U/L (73-393) Laboratory Tests Test 03/05/17 07:05 03/05/17 08:00 03/05/17 08:10 Bedside Urine HCG, Qualitative Hcg negative (Negative) Urine Collection Type Unknown Urine Color Yellow Urine Clarity Turbid Urine pH 6.0 Urine Specific [place] >=1.030 Urine Protein Negative mg/dL (NEG-TRACE) Urine Glucose (UA) Negative mg/dL (NEG) Urine Ketones (Stick) Negative mg/dL (NEG) Urine Blood Negative (NEG) Urine Nitrite Negative (NEG) Urine Bilirubin Small (NEG) Urine Urobilinogen Dipstick 0.2 mg/dL (0.2 mg/dL) Urine Leukocyte Esterase Negative (NEG) Urine RBC Occ /HPF (0-2) Urine WBC 5-10 /HPF (0-4) Urine Squamous Epithelial Cells Many /LPF Urine Bacteria Moderate /HPF (0-FEW) Urine Mucus Marked /LPF Urine Opiates Screen Pos (NEG) Urine Methadone Screen Neg (NEG) Urine Barbiturates Neg (NEG) Urine Phencyclidine Screen Neg (NEG) Urine Amphetamine/Methamphetamine Neg (NEG) Urine Benzodiazepines Screen Neg (NEG) Urine Cocaine Screen Neg (NEG) Urine Cannabinoids Screen Pos (NEG) Urine Ethyl Alcohol Neg (NEG) White Blood Count 10.4 x10^3/uL (4.0-11.0) Red Blood Count 4.58 x10^6/uL (3.50-5.40) Hemoglobin 13.7 g/dL (12.0-15.5) Hematocrit 39.9 % (36.0-47.0) Mean Corpuscular Volume 87 fL (79-100) Mean Corpuscular Hemoglobin 30 pg (25-35) Mean Corpuscular Hemoglobin Concent 34 g/dL (31-37) Red Cell Distribution Width 13.8 % (11.5-14.5) Platelet Count 194 x10^3/uL (140-400) Neutrophils (%) (Auto) 76 % (31-73) Lymphocytes (%) (Auto) 18 % (24-48) Monocytes (%) (Auto) 6 % (0-9) Eosinophils (%) (Auto) 0 % (0-3) Basophils (%) (Auto) 0 % (0-3) Neutrophils # (Auto) 7.8 x10^3uL (1.8-7.7) Lymphocytes # (Auto) 1.8 x10^3/uL (1.0-4.8) Monocytes # (Auto) 0.7 x10^3/uL (0.0-1.1) Eosinophils # (Auto) 0.0 x10^3/uL (0.0-0.7) Basophils # (Auto) 0.0 x10^3/uL (0.0-0.2) Urine Test Negative (NEG) Sodium Level 140 mmol/L (136-145) Potassium Level 2.9 mmol/L (3.5-5.1) Chloride Level 103 mmol/L (98-107) Carbon Dioxide Level 22 mmol/L (21-32) Anion Gap 15 (6-14) Blood Urea Nitrogen 7 mg/dL (7-20) Creatinine 0.8 mg/dL (0.6-1.0) Estimated GFR (Cockcroft-Gault) 88.9 BUN/Creatinine Ratio 9 (6-20) Glucose Level 129 mg/dL (70-99) Calcium Level 9.4 mg/dL (8.5-10.1) Magnesium Level 1.6 mg/dL (1.8-2.4) Total Bilirubin 1.1 mg/dL (0.2-1.0) Aspartate Amino Transf (AST/SGOT) 18 U/L (15-37) Alanine Aminotransferase (ALT/SGPT) 17 U/L (14-59) Alkaline Phosphatase 60 U/L (46-116) Total Protein 8.0 g/dL (6.4-8.2) Albumin 4.2 g/dL (3.4-5.0) Albumin/Globulin Ratio 1.1 (1.0-1.7) Lipase 65 U/L (73-393) VTE Prophylaxis Ordered VTE Prophylaxis Devices: Yes VTE Pharmacological Prophylaxi: Yes Assessment/Plan Assessment/Plan 1. CYclic vomiting episode, normal GET (11/2015) 2. Depression on elavil 3. MArijuana use 4. Hypokalemia from GI loss 5. REactive leukocytosis 6. MIld gap acidosis sec to GI loss 7. Ketonuria PLAn: Replace K - 40 meqs PO more Recheck K and MAg sharon WILL NOT GIVE ANY MORE PAIN mEDS IF she wants to leave bec of my refusal then she can leave Difficult patient - narc seeking GEOVANNI PENNINGTON MD March 05, 2017 13:35
[2017-03-05] MEDS ORDERED: PROCHLORPERAZINE 5 MG TABLET. PO PRN (14:15)
[2017-03-05] MEDS: ONDANSETRON ODT 4 MG TAB.RAPDIS. PO SCH ×2 (14:54→22:00)
[2017-03-05] MEDS: METOCLOPRAMIDE HCL 10 MG/2 ML VIAL. IV SCH ×2 (14:54→20:47)
[2017-03-05] MEDS: PROCHLORPERAZINE 10 MG/2 ML VIAL. IV PRN ×2 (15:58→23:30)
[2017-03-05] MEDS: ONDANSETRON PF 4 MG/2 ML VIAL. IV PRN (18:59)
[2017-03-05 19:00] VITALS: BP 114/77
[2017-03-05] MEDS ORDERED: AMITRIPTYLINE HCL 25 MG TABLET. PO SCH (21:00)
[2017-03-05 23:00] VITALS: BP 98/63
[2017-03-06 03:00] VITALS: BP 90/62
[2017-03-06] MEDS: MORPHINE SULFATE 4 MG/ML DISP.SYRIN. IV PRN ×4 (04:24→10:45)
[2017-03-06] MEDS: ONDANSETRON PF 4 MG/2 ML VIAL. IV PRN ×2 (04:24→12:04)
[2017-03-06 05:19] LABS: BASO % 0 % (0-3); EOS % 1 % (0-3); HEMATOCRIT 32.3 % (36.0-47.0); HEMOGLOBIN 11.6 g/dL (12.0-15.5); LYMPH # 2.7 x10^3/uL (1.0-4.8); LYMPH % 53 % (24-48); MEAN CORPUSCULAR HEMOGLOBIN 31 pg (25-35); MEAN CORPUSCULAR HGB CONC 36 g/dL (31-37); MEAN CORPUSCULAR VOLUME 86 fL (79-100); MONO % 9 % (0-9); NEUT % 37 % (31-73); PLATELET COUNT 144 x10^3/uL (140-400); RED BLOOD COUNT 3.77 x10^6/uL (3.50-5.40); RED CELL DISTRIBUTION WIDTH 13.3 % (11.5-14.5); WHITE BLOOD COUNT 5.2 x10^3/uL (4.0-11.0)
[2017-03-06 05:35] LABS: CALCIUM 8.4 mg/dL (8.5-10.1); CREATININE 0.7 mg/dL (0.6-1.0); GFR 103.7
[2017-03-06 05:42] LABS: POTASSIUM 2.9 mmol/L (3.5-5.1)
[2017-03-06] MEDS ORDERED: POTASSIUM CHLORIDE 20 MEQ TABLET.ER. PO ONE (06:00)
[2017-03-06] MEDS: ONDANSETRON ODT 4 MG TAB.RAPDIS. PO SCH (06:04)
[2017-03-06] MEDS: POTASSIUM CHLORIDE 10MEQ 100 ML IV SCH ×3 (06:15→12:42)
[2017-03-06] MEDS: METOCLOPRAMIDE HCL 10 MG/2 ML VIAL. IV SCH (08:41)
[2017-03-06] MEDS ORDERED: FAMOTIDINE 20 MG TABLET. PO SCH (09:00)
[2017-03-06 11:00] VITALS: BP 199/64
--- NOTE | 2017-03-06 12:08 | PDOC ---
PROGRESS NOTES Chief Complaint Chief Complaint 1. CYclic vomiting episode, normal GET (11/2015) 2. Depression on elavil 3. MArijuana use 4. Hypokalemia from GI loss 5. REactive leukocytosis 6. MIld gap acidosis sec to GI loss 7. Ketonuria History of Present Illness History of Present Illness Emesis has abated Looks good today K 2.9 this AM - was vomiting yesterday On first bag of 4 KCl - got 40 PO also this AM HAd an appt with DAO yesterday Plan: Rpt K 4pm Adavnce diet If better and feeling better home later NO rx needed - just gave her Rx 2 days ago Vitals Vitals Vital Signs Date Time Temp Pulse Resp B/P (MAP) Pulse Ox O2 Delivery O2 Flow Rate FiO2 03/06/17 11:00 98.3 79 20 199/64 (109) 97 Room Air 98.3 Physical Exam General: Alert, Oriented X3, Cooperative, No acute distress Lungs: Clear, Other Extremities: No clubbing, No cyanosis, No edema, Normal pulses, No tenderness/ swelling Skin: No rashes, No breakdown, No significant lesion Labs LABS Laboratory Tests Test 03/06/17 04:20 White Blood Count 5.2 x10^3/uL (4.0-11.0) Red Blood Count 3.77 x10^6/uL (3.50-5.40) Hemoglobin 11.6 g/dL (12.0-15.5) Hematocrit 32.3 % (36.0-47.0) Mean Corpuscular Volume 86 fL (79-100) Mean Corpuscular Hemoglobin 31 pg (25-35) Mean Corpuscular Hemoglobin Concent 36 g/dL (31-37) Red Cell Distribution Width 13.3 % (11.5-14.5) Platelet Count 144 x10^3/uL (140-400) Neutrophils (%) (Auto) 37 % (31-73) Lymphocytes (%) (Auto) 53 % (24-48) Monocytes (%) (Auto) 9 % (0-9) Eosinophils (%) (Auto) 1 % (0-3) Basophils (%) (Auto) 0 % (0-3) Neutrophils # (Auto) 1.9 x10^3uL (1.8-7.7) Lymphocytes # (Auto) 2.7 x10^3/uL (1.0-4.8) Monocytes # (Auto) 0.5 x10^3/uL (0.0-1.1) Eosinophils # (Auto) 0.1 x10^3/uL (0.0-0.7) Basophils # (Auto) 0.0 x10^3/uL (0.0-0.2) Sodium Level 142 mmol/L (136-145) Potassium Level 2.9 mmol/L (3.5-5.1) Chloride Level 105 mmol/L (98-107) Carbon Dioxide Level 26 mmol/L (21-32) Anion Gap 11 (6-14) Blood Urea Nitrogen 3 mg/dL (7-20) Creatinine 0.7 mg/dL (0.6-1.0) Estimated GFR (Cockcroft-Gault) 103.7 Glucose Level 87 mg/dL (70-99) Calcium Level 8.4 mg/dL (8.5-10.1) Review of Systems Review of Systems nausea, but no emesis, cp, soa abd pain Assessment and Plan Assessmemt and Plan Problems Medical Problems: (1) Intractable nausea and vomiting Status: Acute Problems: Comment Review of Relevant I have reviewed the following items miguel (where applicable) has been applied. Labs Laboratory Tests Test 03/05/17 07:05 03/05/17 08:00 03/05/17 08:10 03/06/17 04:20 Bedside Urine HCG, Qualitative Hcg negative (Negative) Urine Collection Type Unknown Urine Color Yellow Urine Clarity Turbid Urine pH 6.0 Urine Specific [place] >=1.030 Urine Protein Negative mg/dL (NEG-TRACE) Urine Glucose (UA) Negative mg/dL (NEG) Urine Ketones (Stick) Negative mg/dL (NEG) Urine Blood Negative (NEG) Urine Nitrite Negative (NEG) Urine Bilirubin Small (NEG) Urine Urobilinogen Dipstick 0.2 mg/dL (0.2 mg/dL) Urine Leukocyte Esterase Negative (NEG) Urine RBC Occ /HPF (0-2) Urine WBC 5-10 /HPF (0-4) Urine Squamous Epithelial Cells Many /LPF Urine Bacteria Moderate /HPF (0-FEW) Urine Mucus Marked /LPF Urine Opiates Screen Pos (NEG) Urine Methadone Screen Neg (NEG) Urine Barbiturates Neg (NEG) Urine Phencyclidine Screen Neg (NEG) Urine Amphetamine/Methamphetamine Neg (NEG) Urine Benzodiazepines Screen Neg (NEG) Urine Cocaine Screen Neg (NEG) Urine Cannabinoids Screen Pos (NEG) Urine Ethyl Alcohol Neg (NEG) White Blood Count 10.4 x10^3/uL (4.0-11.0) 5.2 x10^3/uL (4.0-11.0) Red Blood Count 4.58 x10^6/uL (3.50-5.40) 3.77 x10^6/uL (3.50-5.40) Hemoglobin 13.7 g/dL (12.0-15.5) 11.6 g/dL (12.0-15.5) Hematocrit 39.9 % (36.0-47.0) 32.3 % (36.0-47.0) Mean Corpuscular Volume 87 fL (79-100) 86 fL (79-100) Mean Corpuscular Hemoglobin 30 pg (25-35) 31 pg (25-35) Mean Corpuscular Hemoglobin Concent 34 g/dL (31-37) 36 g/dL (31-37) Red Cell Distribution Width 13.8 % (11.5-14.5) 13.3 % (11.5-14.5) Platelet Count 194 x10^3/uL (140-400) 144 x10^3/uL (140-400) Neutrophils (%) (Auto) 76 % (31-73) 37 % (31-73) Lymphocytes (%) (Auto) 18 % (24-48) 53 % (24-48) Monocytes (%) (Auto) 6 % (0-9) 9 % (0-9) Eosinophils (%) (Auto) 0 % (0-3) 1 % (0-3) Basophils (%) (Auto) 0 % (0-3) 0 % (0-3) Neutrophils # (Auto) 7.8 x10^3uL (1.8-7.7) 1.9 x10^3uL (1.8-7.7) Lymphocytes # (Auto) 1.8 x10^3/uL (1.0-4.8) 2.7 x10^3/uL (1.0-4.8) Monocytes # (Auto) 0.7 x10^3/uL (0.0-1.1) 0.5 x10^3/uL (0.0-1.1) Eosinophils # (Auto) 0.0 x10^3/uL (0.0-0.7) 0.1 x10^3/uL (0.0-0.7) Basophils # (Auto) 0.0 x10^3/uL (0.0-0.2) 0.0 x10^3/uL (0.0-0.2) Urine Test Negative (NEG) Sodium Level 140 mmol/L (136-145) 142 mmol/L (136-145) Potassium Level 2.9 mmol/L (3.5-5.1) 2.9 mmol/L (3.5-5.1) Chloride Level 103 mmol/L (98-107) 105 mmol/L (98-107) Carbon Dioxide Level 22 mmol/L (21-32) 26 mmol/L (21-32) Anion Gap 15 (6-14) 11 (6-14) Blood Urea Nitrogen 7 mg/dL (7-20) 3 mg/dL (7-20) Creatinine 0.8 mg/dL (0.6-1.0) 0.7 mg/dL (0.6-1.0) Estimated GFR (Cockcroft-Gault) 88.9 103.7 BUN/Creatinine Ratio 9 (6-20) Glucose Level 129 mg/dL (70-99) 87 mg/dL (70-99) Calcium Level 9.4 mg/dL (8.5-10.1) 8.4 mg/dL (8.5-10.1) Magnesium Level 1.6 mg/dL (1.8-2.4) Total Bilirubin 1.1 mg/dL (0.2-1.0) Aspartate Amino Transf (AST/SGOT) 18 U/L (15-37) Alanine Aminotransferase (ALT/SGPT) 17 U/L (14-59) Alkaline Phosphatase 60 U/L (46-116) Total Protein 8.0 g/dL (6.4-8.2) Albumin 4.2 g/dL (3.4-5.0) Albumin/Globulin Ratio 1.1 (1.0-1.7) Lipase 65 U/L (73-393) Laboratory Tests Test 03/06/17 04:20 White Blood Count 5.2 x10^3/uL (4.0-11.0) Red Blood Count 3.77 x10^6/uL (3.50-5.40) Hemoglobin 11.6 g/dL (12.0-15.5) Hematocrit 32.3 % (36.0-47.0) Mean Corpuscular Volume 86 fL (79-100) Mean Corpuscular Hemoglobin 31 pg (25-35) Mean Corpuscular Hemoglobin Concent 36 g/dL (31-37) Red Cell Distribution Width 13.3 % (11.5-14.5) Platelet Count 144 x10^3/uL (140-400) Neutrophils (%) (Auto) 37 % (31-73) Lymphocytes (%) (Auto) 53 % (24-48) Monocytes (%) (Auto) 9 % (0-9) Eosinophils (%) (Auto) 1 % (0-3) Basophils (%) (Auto) 0 % (0-3) Neutrophils # (Auto) 1.9 x10^3uL (1.8-7.7) Lymphocytes # (Auto) 2.7 x10^3/uL (1.0-4.8) Monocytes # (Auto) 0.5 x10^3/uL (0.0-1.1) Eosinophils # (Auto) 0.1 x10^3/uL (0.0-0.7) Basophils # (Auto) 0.0 x10^3/uL (0.0-0.2) Sodium Level 142 mmol/L (136-145) Potassium Level 2.9 mmol/L (3.5-5.1) Chloride Level 105 mmol/L (98-107) Carbon Dioxide Level 26 mmol/L (21-32) Anion Gap 11 (6-14) Blood Urea Nitrogen 3 mg/dL (7-20) Creatinine 0.7 mg/dL (0.6-1.0) Estimated GFR (Cockcroft-Gault) 103.7 Glucose Level 87 mg/dL (70-99) Calcium Level 8.4 mg/dL (8.5-10.1) Medications Current Medications Sodium Chloride 1,000 ml @ 1,000 mls/hr Q1H IV Last administered on 03/05/17t 08:17; Start 03/05/17 at 08:08; Stop 03/05/17 at 09:07; Status DC Lorazepam (Ativan) 1 mg 1X ONCE IV Last administered on 03/05/17 08:18; Start 03/05/17 at 08:15; Stop 03/05/17 at 08:16; Status DC Promethazine HCl 12.5 mg/Sodium Chloride 50.5 ml @ 101 mls/hr 1X ONCE IV Last administered on 03/05/17 08:23; Start 03/05/17 at 08:30; Stop 03/05/17 at 08:59; Status DC Pantoprazole Sodium (Protonix Vial) 40 mg 1X ONCE IVP Last administered on 08:17; Start 03/05/17 at 08:15; Stop 03/05/17 at 08:16; Status DC Potassium Chloride 100 ml @ 100 mls/hr Q1H IV Last administered on 03/05/17 09:56; Start 03/05/17 at 09:00; Stop 03/05/17 at 10:59; Status DC Morphine Sulfate 4 mg PRN Q15MIN PRN IV/SQ PAIN GREATER THAN 3/10 Last administered on 03/05/17 09:56; Start 03/05/17 at 09:00; Stop 03/06/17 at 08:59 ; Status DC Magnesium Sulfate/ Dextrose 100 ml @ 100 mls/hr 1X ONCE IV Last administered on 03/05/17 11:36; Start 03/05/17 at 09:45; Stop 03/05/17 at 10:44; Status DC Ondansetron HCl (Zofran) 4 mg 1X ONCE IV Last administered on 03/05/17 10:12 ; Start 03/05/17 at 10:15; Stop 03/05/17 at 10:16; Status DC Promethazine HCl 25 mg/Sodium Chloride 51 ml @ 101 mls/hr 1X ONCE IV Last administered on 03/05/17 13:22; Start 03/05/17 at 10:30; Stop 03/05/17 at 11:00 ; Status DC Ondansetron HCl (Zofran) 4 mg PRN Q8HRS PRN IV NAUSEA/VOMITING; Start 03/05/17 at 12:00; Stop 03/05/17 at 13:38; Status DC Morphine Sulfate 4 mg PRN Q2HR PRN IV PAIN Last administered on 03/06/17 10:45 ; Start 03/05/17 at 12:00; Stop 03/06/17 at 11:59; Status DC Dextrose/Sodium Chloride 1,000 ml @ 100 mls/hr 1X ONCE IV Last administered on 03/05/17 13:36; Start 03/05/17 at 12:00; Stop 03/05/17 at 21:59; Status DC Ondansetron HCl (Zofran) 4 mg PRN Q6HRS PRN IV NAUSEA/VOMITING Last administered on 03/06/17 12:04; Start 03/05/17 at 13:36; Stop 03/06/17 at 13:35 Prochlorperazine Edisylate (Compazine) 10 mg PRN Q6HRS PRN IV NAUSEA/VOMITING Last administered on 03/05/17 23:30; Start 03/05/17 at 13:45 Amitriptyline HCl (Elavil) 50 mg QHS PO Last administered on 03/05/17 20:55; Start 03/05/17 at 21:00 Metoclopramide HCl (Reglan) 10 mg TID IV Last administered on 03/06/17 08:41; Start 03/05/17 at 14:00 Famotidine (Pepcid) 20 mg DAILY PO Last administered on 03/06/17 08:41; Start 03/06/17 at 09:00 Ondansetron HCl (Zofran Odt) 4 mg Q8HRS PO Last administered on 03/06/17 06:04 ; Start 03/05/17 at 14:00 Prochlorperazine Maleate (Compazine) 10 mg PRN TID PRN PO NAUSEA/VOMITING; Start 03/05/17 at 14:15 Potassium Chloride (Klor-Con) 40 meq 1X ONCE PO Last administered on 06:06; Start 03/06/17 at 06:00; Stop 03/06/17 at 06:01; Status DC Potassium Chloride 100 ml @ 100 mls/hr Q1H IV Last administered on 03/06/17 07:00; Start 03/06/17 at 06:00; Stop 03/06/17 at 09:59; Status DC Active Scripts Active Famotidine 20 Mg Tablet 20 Mg PO DAILY Zofran Odt (Ondansetron) 4 Mg Tab.rapdis 1 Tab SL Q8HRS Compazine (Prochlorperazine Maleate) 10 Mg Tablet 10 Mg PO Q8HRS Amitriptyline Hcl 50 Mg Tablet 1 Tab PO QHS Vitals/I & O Vital Sign - Last 24 Hours 03/05/17 03/05/17 03/05/17 03/05/17 12:29 13:32 15:00 15:58 Pulse 92 B/P (MAP) 111/58 (75) Pulse Ox 97 O2 Delivery Room Air Room Air Room Air Room Air 03/05/17 03/05/17 03/05/17 03/05/17 18:59 19:00 20:54 23:00 Temp 98.7 98.4 98.7 98.4 Pulse 101 86 Resp 17 20 17 B/P (MAP) 114/77 (89) 98/63 (75) Pulse Ox 97 96 O2 Delivery Room Air Room Air Room Air Room Air 03/05/17 03/06/17 03/06/17 03/06/17 23:30 03:00 04:24 06:25 Temp 98.5 98.5 Pulse 112 Resp 20 17 20 18 B/P (MAP) 90/62 (71) Pulse Ox 99 O2 Delivery Room Air Room Air Room Air Room Air 03/06/17 03/06/17 03/06/17 03/06/17 08:05 08:41 09:11 10:45 O2 Delivery Room Air Room Air Room Air Room Air 03/06/17 11:00 Temp 98.3 98.3 Pulse 79 Resp 20 B/P (MAP) 199/64 (109) Pulse Ox 97 O2 Delivery Room Air Intake and Output 03/05/17 03/05/17 03/06/17 15:00 23:00 07:00 Intake Total 1350 ml 0 ml 120 ml Balance 1350 ml 0 ml 120 ml GEOVANNI PENNINGTON MD March 06, 2017 12:08
--- NOTE | 2017-03-06 12:11 | PDOC3 ---
Discharge Summary Visit Information Date of Admission: March 05, 2017 Date of Discharge: March 06, 2017 Admitting Diagnosis Comment: 1. CYclic vomiting episode, normal GET (11/2015) 2. Depression on elavil 3. MArijuana use 4. Hypokalemia from GI loss 5. REactive leukocytosis 6. MIld gap acidosis sec to GI loss 7. Ketonuria Final Diagnosis Problems Medical Problems: (1) Intractable nausea and vomiting Status: Acute Brief Hospital Course Allergies Allergies Coded Allergies Type Severity Reaction Last Updated Verified coconut Allergy Severe Anaphylaxis 01/22/17 Yes Vital Signs Vital Signs Date Time Temp Pulse Resp B/P (MAP) Pulse Ox O2 Delivery O2 Flow Rate FiO2 03/06/17 11:00 98.3 79 20 199/64 (109) 97 Room Air 98.3 Lab Results Laboratory Tests Test 03/05/17 07:05 03/05/17 08:00 03/05/17 08:10 03/06/17 04:20 Bedside Urine HCG, Qualitative Hcg negative (Negative) Urine Collection Type Unknown Urine Color Yellow Urine Clarity Turbid Urine pH 6.0 Urine Specific [place] >=1.030 Urine Protein Negative mg/dL (NEG-TRACE) Urine Glucose (UA) Negative mg/dL (NEG) Urine Ketones (Stick) Negative mg/dL (NEG) Urine Blood Negative (NEG) Urine Nitrite Negative (NEG) Urine Bilirubin Small (NEG) Urine Urobilinogen Dipstick 0.2 mg/dL (0.2 mg/dL) Urine Leukocyte Esterase Negative (NEG) Urine RBC Occ /HPF (0-2) Urine WBC 5-10 /HPF (0-4) Urine Squamous Epithelial Cells Many /LPF Urine Bacteria Moderate /HPF (0-FEW) Urine Mucus Marked /LPF Urine Opiates Screen Pos (NEG) Urine Methadone Screen Neg (NEG) Urine Barbiturates Neg (NEG) Urine Phencyclidine Screen Neg (NEG) Urine Amphetamine/Methamphetamine Neg (NEG) Urine Benzodiazepines Screen Neg (NEG) Urine Cocaine Screen Neg (NEG) Urine Cannabinoids Screen Pos (NEG) Urine Ethyl Alcohol Neg (NEG) White Blood Count 10.4 x10^3/uL (4.0-11.0) 5.2 x10^3/uL (4.0-11.0) Red Blood Count 4.58 x10^6/uL (3.50-5.40) 3.77 x10^6/uL (3.50-5.40) Hemoglobin 13.7 g/dL (12.0-15.5) 11.6 g/dL (12.0-15.5) Hematocrit 39.9 % (36.0-47.0) 32.3 % (36.0-47.0) Mean Corpuscular Volume 87 fL (79-100) 86 fL (79-100) Mean Corpuscular Hemoglobin 30 pg (25-35) 31 pg (25-35) Mean Corpuscular Hemoglobin Concent 34 g/dL (31-37) 36 g/dL (31-37) Red Cell Distribution Width 13.8 % (11.5-14.5) 13.3 % (11.5-14.5) Platelet Count 194 x10^3/uL (140-400) 144 x10^3/uL (140-400) Neutrophils (%) (Auto) 76 % (31-73) 37 % (31-73) Lymphocytes (%) (Auto) 18 % (24-48) 53 % (24-48) Monocytes (%) (Auto) 6 % (0-9) 9 % (0-9) Eosinophils (%) (Auto) 0 % (0-3) 1 % (0-3) Basophils (%) (Auto) 0 % (0-3) 0 % (0-3) Neutrophils # (Auto) 7.8 x10^3uL (1.8-7.7) 1.9 x10^3uL (1.8-7.7) Lymphocytes # (Auto) 1.8 x10^3/uL (1.0-4.8) 2.7 x10^3/uL (1.0-4.8) Monocytes # (Auto) 0.7 x10^3/uL (0.0-1.1) 0.5 x10^3/uL (0.0-1.1) Eosinophils # (Auto) 0.0 x10^3/uL (0.0-0.7) 0.1 x10^3/uL (0.0-0.7) Basophils # (Auto) 0.0 x10^3/uL (0.0-0.2) 0.0 x10^3/uL (0.0-0.2) Urine Test Negative (NEG) Sodium Level 140 mmol/L (136-145) 142 mmol/L (136-145) Potassium Level 2.9 mmol/L (3.5-5.1) 2.9 mmol/L (3.5-5.1) Chloride Level 103 mmol/L (98-107) 105 mmol/L (98-107) Carbon Dioxide Level 22 mmol/L (21-32) 26 mmol/L (21-32) Anion Gap 15 (6-14) 11 (6-14) Blood Urea Nitrogen 7 mg/dL (7-20) 3 mg/dL (7-20) Creatinine 0.8 mg/dL (0.6-1.0) 0.7 mg/dL (0.6-1.0) Estimated GFR (Cockcroft-Gault) 88.9 103.7 BUN/Creatinine Ratio 9 (6-20) Glucose Level 129 mg/dL (70-99) 87 mg/dL (70-99) Calcium Level 9.4 mg/dL (8.5-10.1) 8.4 mg/dL (8.5-10.1) Magnesium Level 1.6 mg/dL (1.8-2.4) Total Bilirubin 1.1 mg/dL (0.2-1.0) Aspartate Amino Transf (AST/SGOT) 18 U/L (15-37) Alanine Aminotransferase (ALT/SGPT) 17 U/L (14-59) Alkaline Phosphatase 60 U/L (46-116) Total Protein 8.0 g/dL (6.4-8.2) Albumin 4.2 g/dL (3.4-5.0) Albumin/Globulin Ratio 1.1 (1.0-1.7) Lipase 65 U/L (73-393) Laboratory Tests Test 03/06/17 04:20 White Blood Count 5.2 x10^3/uL (4.0-11.0) Red Blood Count 3.77 x10^6/uL (3.50-5.40) Hemoglobin 11.6 g/dL (12.0-15.5) Hematocrit 32.3 % (36.0-47.0) Mean Corpuscular Volume 86 fL (79-100) Mean Corpuscular Hemoglobin 31 pg (25-35) Mean Corpuscular Hemoglobin Concent 36 g/dL (31-37) Red Cell Distribution Width 13.3 % (11.5-14.5) Platelet Count 144 x10^3/uL (140-400) Neutrophils (%) (Auto) 37 % (31-73) Lymphocytes (%) (Auto) 53 % (24-48) Monocytes (%) (Auto) 9 % (0-9) Eosinophils (%) (Auto) 1 % (0-3) Basophils (%) (Auto) 0 % (0-3) Neutrophils # (Auto) 1.9 x10^3uL (1.8-7.7) Lymphocytes # (Auto) 2.7 x10^3/uL (1.0-4.8) Monocytes # (Auto) 0.5 x10^3/uL (0.0-1.1) Eosinophils # (Auto) 0.1 x10^3/uL (0.0-0.7) Basophils # (Auto) 0.0 x10^3/uL (0.0-0.2) Sodium Level 142 mmol/L (136-145) Potassium Level 2.9 mmol/L (3.5-5.1) Chloride Level 105 mmol/L (98-107) Carbon Dioxide Level 26 mmol/L (21-32) Anion Gap 11 (6-14) Blood Urea Nitrogen 3 mg/dL (7-20) Creatinine 0.7 mg/dL (0.6-1.0) Estimated GFR (Cockcroft-Gault) 103.7 Glucose Level 87 mg/dL (70-99) Calcium Level 8.4 mg/dL (8.5-10.1) Brief Hospital Course Ms. Donis is a 21 old [sex] who presented with [ ]21 F cyclic vomiter, I just dcd yesterday, admitted bec of vomiting and K 2.9 My dc dx yesterday was: 1. CYclic vomiting episode, normal GET (11/2015) 2. Depression on elavil 3. MArijuana use 4. Hypokalemia from GI loss 5. REactive leukocytosis 6. MIld gap acidosis sec to GI loss 7. Ketonuria TOday, K 2.9, got 20 IV at ER MAg 1.6 got 1 gm at ER mag sulfate Walking around the halls, demanding pain meds, 07/27 abd pain claims She did eat crackers then vomited in her room - HAs been vomting since age 1 - on elavil 50 qhs NON DM Stayed overnight, better - ready to dc. HAs ff up DAO> HEavy counselling done > 35 mins No rx given, just gave 2 days ago Discharge Information Condition at Discharge: Improved, Stable Follow Up: Weeks (DAO) Disposition/Orders: D/C to Home Scheduled Amitriptyline Hcl (Amitriptyline Hcl), 1 TAB PO QHS Famotidine (Famotidine), 20 MG PO DAILY Ondansetron (Zofran Odt), 1 TAB SL Q8HRS Prochlorperazine Maleate (Compazine), 10 MG PO Q8HRS GEOVANNI PENNINGTON MD March 06, 2017 12:10
== END 2017-03-06 14:42 | disposition home or self-care (01) | DRG 103 ==
LOC: ER 09:38 → 5 SOUTH 11:40 → OBSVTOIN 11:51
PROVIDERS: ADMIT Internal Medicine; ATTEND Internal Medicine
DX: G43.A0 Cyclical vomiting, in migraine, not intractable (principal); E87.2 Acidosis; F32.9 Major depressive disorder, single episode, unspecified; R82.4 Acetonuria; F12.90 Cannabis use, unspecified, uncomplicated; E83.42 Hypomagnesemia; D72.828 Other elevated white blood cell count; E87.6 Hypokalemia; F41.9 Anxiety disorder, unspecified; Z83.3 Family history of diabetes mellitus; Z91.018 Allergy to other foods; Z79.899 Other long term (current) drug therapy; Z90.49 Acquired absence of other specified parts of digestive tract; Z82.49 Family history of ischemic heart disease and other diseases of the circulatory system
CPT/HCPCS: 36415; 80048; 80053; 81001; 81025; 83690; 83735; 85027; 87086; C9113; G0379; G0481; J0780; J2060; J2270; J2405; J2550; J2765; J3475; J3480; J7030; Q0162

== ENCOUNTER 2017-03-13 05:47 | Emergency (ER) | payer SELFPAY ==
[~2017-03-13] VITALS: Ht 162.6 cm; Wt 59.9 kg
--- NOTE | 2017-03-13 06:04 | PHYS DOC ---
Past Medical History Past Medical History: Anxiety, Asthma, Cyclic Vomiting, Depression Additional Past Medical Histor: cyclic vomiting syndrome Past Surgical History: Cholecystectomy Alcohol Use: None Drug Use: Marijuana Adult General Chief Complaint Chief Complaint: NAUSEA/VOMITING/DIARRHA HPI HPI Patient is a 21 year old female presenting to the emergency department for evaluation of intractable nausea and vomiting. She has been seen here quite frequently for this and says that this is her cyclic vomiting syndrome. Patient has been admitted twice for this this month and has had 3 ED visits so far this month for visits last month and 3 visits in December. She says that the only thing she takes medication for pain including Savery. She denies taking any medication for nausea. She denies smoking cigarettes and says that she uses a small amount of marijuana. I told her that every single time she has been seen here she has had a positive drug test for marijuana and that smoking marijuana will make her cyclic vomiting worse especially if she smokes O much that it is causing her to have cannabis hyperemesis. She is requesting something for pain and anxiety and she has no request for anything for nausea. Patient says that she missed her appointment spoke that she was here admitted to the hospital. She has no GI physician currently. She is anxious and hyperventilating and in no obvious distress. Review of Systems Review of Systems Constitutional: Denies fever or chills [] Respiratory: Denies cough or shortness of breath [] Cardiovascular: No additional information not addressed in HPI [] GI: + abdominal pain, nausea, vomiting. No diarrhea [] : Denies dysuria or hematuria [] Neurologic: Denies headache, focal weakness or sensory changes [] Current Medications Current Medications Current Medications Medications (Trade) Dose Ordered Sig/Arnaldo Start Time Stop Time Status Last Admin Dose Admin Diphenhydramine HCl (Benadryl) 50 mg 1X ONCE 03/13/17 09:00 03/13/17 09:01 DC 03/13/17 09:13 50 MG Haloperidol Lactate (Haldol) 2.5 mg 1X ONCE 03/13/17 09:45 03/13/17 09:46 DC 03/13/17 09:51 2.5 MG Lorazepam (Ativan) 1 mg 1X ONCE 03/13/17 09:00 03/13/17 09:01 DC 03/13/17 09:13 1 MG Magnesium Oxide (Magnesium Oxide) 800 mg 1X STAT 03/13/17 07:07 03/13/17 07:11 DC Metoclopramide HCl (Reglan) 10 mg 1X ONCE 03/13/17 08:45 03/13/17 08:52 DC Morphine Sulfate 5 mg 1X ONCE 03/13/17 07:15 03/13/17 07:16 DC 03/13/17 08:10 5 MG Ondansetron HCl (Zofran) 8 mg 1X ONCE 03/13/17 07:15 03/13/17 07:16 DC 03/13/17 08:08 8 MG Oxycodone/ Acetaminophen (Percocet 5/325) 1 tab 1X ONCE 03/13/17 09:00 03/13/17 09:01 DC Pantoprazole Sodium (Protonix Vial) 40 mg 1X ONCE 03/13/17 06:30 03/13/17 06:31 DC 03/13/17 06:29 40 MG Potassium Chloride (Klor-Con) 40 meq 1X ONCE 03/13/17 07:15 03/13/17 07:16 DC Prochlorperazine Edisylate (Compazine) 10 mg 1X ONCE 03/13/17 09:00 03/13/17 09:01 DC Promethazine HCl (Phenergan Im) 25 mg 1X ONCE 03/13/17 06:30 03/13/17 06:31 DC 03/13/17 06:30 25 MG Sodium Chloride 1,000 ml @ 1,000 mls/hr 1X ONCE 03/13/17 07:15 03/13/17 08:14 DC 03/13/17 08:08 1,000 MLS/HR Allergies Allergies Allergies Coded Allergies Type Severity Reaction Last Updated Verified coconut Allergy Severe Anaphylaxis 01/22/17 Yes Physical Exam Physical Exam Constitutional: Well developed, well nourished, no acute distress, non-toxic appearance. [] Cardiovascular:Heart rate regular rhythm, no murmur [] Lungs & Thorax: Bilateral breath sounds clear to auscultation [] Abdomen: Bowel sounds normal, soft, + diffuse tenderness, no rebound or guarding , no masses, no pulsatile masses. [] Extremities: No tenderness, no cyanosis, no clubbing, ROM intact, no edema. [] Neurologic: Alert and oriented X 3, normal motor function, normal sensory function, no focal deficits noted. [] Psychologic: Anxious Current Patient Data Vital Signs Vital Signs Date Time Temp Pulse Resp B/P (MAP) Pulse Ox O2 Delivery O2 Flow Rate FiO2 03/13/17 09:00 110 18 108/65 (79) 97 Room Air 03/13/17 06:08 98.1 98.1 Lab Values Laboratory Tests Test 03/13/17 05:08 03/13/17 05:55 03/13/17 06:34 POC Urine HCG, Qualitative Hcg negative (Negative) Urine Collection Type Unknown Urine Color Yellow Urine Clarity Turbid Urine pH 7.5 Urine Specific [place] >=1.030 Urine Protein 100 mg/dL (NEG-TRACE) Urine Glucose (UA) 100 mg/dL (NEG) Urine Ketones (Stick) 15 mg/dL (NEG) Urine Blood Negative (NEG) Urine Nitrite Negative (NEG) Urine Bilirubin Negative (NEG) Urine Urobilinogen Dipstick 1.0 mg/dL (0.2 mg/dL) Urine Leukocyte Esterase Negative (NEG) Urine RBC Occ /HPF (0-2) Urine WBC 1-4 /HPF (0-4) Urine Squamous Epithelial Cells Mod /LPF Urine Bacteria 0 /HPF (0-FEW) Urine Mucus Mod /LPF Urine Opiates Screen Neg (NEG) Urine Methadone Screen Neg (NEG) Urine Barbiturates Neg (NEG) Urine Phencyclidine Screen Neg (NEG) Urine Amphetamine/Methamphetamine Neg (NEG) Urine Benzodiazepines Screen Neg (NEG) Urine Cocaine Screen Neg (NEG) Urine Cannabinoids Screen Pos (NEG) Urine Ethyl Alcohol Neg (NEG) White Blood Count 14.7 x10^3/uL (4.0-11.0) H Red Blood Count 5.04 x10^6/uL (3.50-5.40) Hemoglobin 14.9 g/dL (12.0-15.5) Hematocrit 44.1 % (36.0-47.0) Mean Corpuscular Volume 87 fL (79-100) Mean Corpuscular Hemoglobin 30 pg (25-35) Mean Corpuscular Hemoglobin Concent 34 g/dL (31-37) Red Cell Distribution Width 13.7 % (11.5-14.5) Platelet Count 225 x10^3/uL (140-400) Neutrophils (%) (Auto) 94 % (31-73) H Lymphocytes (%) (Auto) 4 % (24-48) L Monocytes (%) (Auto) 2 % (0-9) Eosinophils (%) (Auto) 0 % (0-3) Basophils (%) (Auto) 0 % (0-3) Neutrophils # (Auto) 13.8 x10^3uL (1.8-7.7) H Lymphocytes # (Auto) 0.6 x10^3/uL (1.0-4.8) L Monocytes # (Auto) 0.2 x10^3/uL (0.0-1.1) Eosinophils # (Auto) 0.0 x10^3/uL (0.0-0.7) Basophils # (Auto) 0.0 x10^3/uL (0.0-0.2) Segmented Neutrophils % 91 % (35-66) H Band Neutrophils % 3 % (0-9) Lymphocytes % 4 % (24-48) L Monocytes % 2 % (0-10) Platelet Estimate Adequate (ADEQUATE) Sodium Level 137 mmol/L (136-145) Potassium Level 3.5 mmol/L (3.5-5.1) Chloride Level 97 mmol/L (98-107) L Carbon Dioxide Level 20 mmol/L (21-32) L Anion Gap 20 (6-14) H Blood Urea Nitrogen 13 mg/dL (7-20) Creatinine 1.0 mg/dL (0.6-1.0) Estimated GFR (Cockcroft-Gault) 68.7 BUN/Creatinine Ratio 13 (6-20) Glucose Level 212 mg/dL (70-99) H Calcium Level 10.1 mg/dL (8.5-10.1) Magnesium Level 1.6 mg/dL (1.8-2.4) L Total Bilirubin 0.7 mg/dL (0.2-1.0) Aspartate Amino Transferase (AST) 23 U/L (15-37) Alanine Aminotransferase (ALT) 28 U/L (14-59) Alkaline Phosphatase 72 U/L (46-116) Total Protein 9.1 g/dL (6.4-8.2) H Albumin 5.0 g/dL (3.4-5.0) Albumin/Globulin Ratio 1.2 (1.0-1.7) Lipase 119 U/L (73-393) Laboratory Tests 03/13/17 06:34 Laboratory Tests 03/13/17 06:34 EKG EKG [] Radiology/Procedures Radiology/Procedures [] Course & Med Decision Making Course & Med Decision Making Patient with her typical nausea and vomiting. Patient was told to stop smoking marijuana but she says that that has nothing to do with it and is unwilling to take my advice. Patient received antiemetics Ativan and morphine IV fluids. Her labs are quite unremarkable except for leukocytosis. She has mild ketones in her urine with elevated specific gravity but no electrolyte abnormalities. Patient observed for over 4 hours and she only had 1 emesis episode here. She continues to complain of pain to matter what I give her however her nausea is gone and she can tolerate pills and liquids by mouth here with no difficulty. Looking through her records it appears that she always has intractable pain so told her that she needs to drink sips of water and eat soft non-irritating foods and follow with a PCP and/or GI doctor and come back to the ER sooner with any new or worsening pain fevers vomiting or other general concerns. Patient verbalized understanding of the above plan. Dragon Disclaimer Dragon Disclaimer This electronic medical record was generated, in whole or in part, using a voice recognition dictation system. Departure Departure Impression: Primary Impression: Abdominal pain Additional Impressions: Nausea & vomiting Hypomagnesemia Ketonuria Disposition: 01 HOME, SELF-CARE Condition: GOOD Referrals: NO PCP (PCP) LUIS F HO MD Patient Instructions: Cyclic Vomiting Syndrome Additional Instructions: AVOID MARIJUANA. TAKE SIPS OF WATER TODAY AND TRY EATING SOFT NON-IRRITATING LIQUIDS AND FOODS. Problem Qualifiers Primary Impression: Abdominal pain Abdominal location: generalized Qualified Codes: R10.84 - Generalized abdominal pain Additional Impressions: Nausea & vomiting Vomiting type: cyclical vomiting Vomiting Intractability: non-intractable Qualified Codes: G43.A0 - Cyclical vomiting, not intractable MATILDE TITUS DO March 13, 2017 06:04
[2017-03-13] MEDS ORDERED: MORPHINE SULFATE 10 MG/ML VIAL. IV ONE ×2 (06:30→07:15)
[2017-03-13] MEDS ORDERED: PANTOPRAZOLE IV PUSH 40 MG VIAL. IVP ONE (06:30)
[2017-03-13] MEDS ORDERED: IV NORMAL SALINE 1000ML BAG 1,000 ML IV ONE ×2 (06:30→07:15)
[2017-03-13] MEDS ORDERED: PROMETHAZINE IM 25 MG/ML VIAL IM ONE (06:30)
[2017-03-13 06:35] LABS: BILIRUBIN,URINE NEGATIVE (NEG); GLUCOSE,URINE 100 mg/dL (NEG); NITRITE,URINE NEGATIVE (NEG); PH,URINE 7.5; PROTEIN,URINE 100 mg/dL (NEG-TRACE)
[2017-03-13 06:41] LABS: BARBITURATES NEG (NEG); BENZODIAZEPINES NEG (NEG); CANNABINOIDS POS (NEG); COCAINE NEG (NEG); METHADONE NEG (NEG); OPIATES NEG (NEG); PHENCYCLIDINE NEG (NEG)
[2017-03-13 06:45] LABS: BACTERIA,URINE 0 /HPF (0-FEW); RBC,URINE OCC /HPF (0-2); SQUAMOUS EPITHELIAL CELL,UR MOD /LPF
[2017-03-13 06:50] LABS: BASO % 0 % (0-3); EOS % 0 % (0-3); HEMATOCRIT 44.1 % (36.0-47.0); HEMOGLOBIN 14.9 g/dL (12.0-15.5); LYMPH # 0.6 x10^3/uL (1.0-4.8); LYMPH % 4 % (24-48); MEAN CORPUSCULAR HEMOGLOBIN 30 pg (25-35); MEAN CORPUSCULAR HGB CONC 34 g/dL (31-37); MEAN CORPUSCULAR VOLUME 87 fL (79-100); MONO % 2 % (0-9); NEUT % 94 % (31-73); PLATELET COUNT 225 x10^3/uL (140-400); RED BLOOD COUNT 5.04 x10^6/uL (3.50-5.40); RED CELL DISTRIBUTION WIDTH 13.7 % (11.5-14.5); WHITE BLOOD COUNT 14.7 x10^3/uL (4.0-11.0)
[2017-03-13 06:52] LABS: CALCIUM 10.1 mg/dL (8.5-10.1); GFR 68.7; POTASSIUM 3.5 mmol/L (3.5-5.1)
[2017-03-13 06:58] LABS: ALBUMIN/GLOBULIN RATIO 1.2 (1.0-1.7); MAGNESIUM 1.6 mg/dL (1.8-2.4); TOTAL BILIRUBIN 0.7 mg/dL (0.2-1.0); TOTAL PROTEIN 9.1 g/dL (6.4-8.2)
[2017-03-13] MEDS ORDERED: MAGNESIUM OXIDE 400 MG TABLET PO STA (07:07)
[2017-03-13] MEDS ORDERED: ONDANSETRON PF 4 MG/2 ML VIAL. IV ONE (07:15)
[2017-03-13] MEDS ORDERED: POTASSIUM CHLORIDE 20 MEQ TABLET.ER. PO ONE (07:15)
[2017-03-13 07:53] LABS: PLT ESTIMATE ADEQUATE (ADEQUATE)
[2017-03-13] MEDS ORDERED: diphenhydrAMINE 50 MG/ML VIAL IVP ONE (08:45)
[2017-03-13] MEDS ORDERED: METOCLOPRAMIDE HCL 10 MG/2 ML VIAL. IV ONE (08:45)
[2017-03-13] MEDS ORDERED: oxyCODONE/APAP 5/325 1 TAB TABLET PO ONE (09:00)
[2017-03-13] MEDS ORDERED: diphenhydrAMINE 50 MG/ML VIAL IM ONE (09:00)
[2017-03-13] MEDS ORDERED: PROCHLORPERAZINE 10 MG/2 ML VIAL. IM ONE (09:00)
[2017-03-13] MEDS ORDERED: LORazepam 1 MG TABLET PO ONE (09:00)
[2017-03-13] MEDS ORDERED: HALOPERIDOL LACTATE 5 MG/ML VIAL. IM ONE (09:45)
[2017-03-13 10:30] VITALS: BP 114/68
== END 2017-03-13 10:54 | disposition home or self-care (01) ==
LOC: ER 05:47
DX: G43.A0 Cyclical vomiting, in migraine, not intractable (principal); R10.84 Generalized abdominal pain; E83.42 Hypomagnesemia; R82.4 Acetonuria; F41.9 Anxiety disorder, unspecified; F32.9 Major depressive disorder, single episode, unspecified; J45.909 Unspecified asthma, uncomplicated; F12.10 Cannabis abuse, uncomplicated; Z90.49 Acquired absence of other specified parts of digestive tract; Z91.018 Allergy to other foods
CPT/HCPCS: 36415; 80053; 80305; 81001; 83690; 83735; 84703; 85007; 85027; 96361; 96372; 96374; 96375; 96376; 99284; C9113; J1200; J1630; J2060; J2270; J2405; J2550; J7030; 81025; G0481

== ENCOUNTER 2017-05-09 09:58 | Observation (INO) | payer SELFPAY ==
[~2017-05-09] VITALS: Ht 167.6 cm; Wt 68.0 kg
[~2017-05-09 09:58] MED LIST changes: -HYDR-2666 PO; +HYDR-2758 PO
[2017-05-09 10:41] LABS: BASO % 1 % (0-3); EOS % 1 % (0-3); HEMOGLOBIN 14.5 g/dL (12.0-15.5); LYMPH # 2.2 x10^3/uL (1.0-4.8); LYMPH % 32 % (24-48); MEAN CORPUSCULAR HEMOGLOBIN 30 pg (25-35); MEAN CORPUSCULAR HGB CONC 34 g/dL (31-37); MEAN CORPUSCULAR VOLUME 88 fL (79-100); MONO % 7 % (0-9); NEUT % 60 % (31-73); PLATELET COUNT 171 x10^3/uL (140-400); RED BLOOD COUNT 4.77 x10^6/uL (3.50-5.40); RED CELL DISTRIBUTION WIDTH 13.5 % (11.5-14.5); WHITE BLOOD COUNT 6.9 x10^3/uL (4.0-11.0)
[2017-05-09] MEDS ORDERED: IV NORMAL SALINE 1000ML BAG 1,000 ML IV ONE (10:45)
[2017-05-09 10:54] LABS: BILIRUBIN,URINE NEGATIVE (NEG); GLUCOSE,URINE NEGATIVE (NEG); NITRITE,URINE NEGATIVE (NEG); PROTEIN,URINE NEGATIVE (NEG-TRACE); UROBILINOGEN,URINE 0.2 mg/dL (0.2 mg/dL)
[2017-05-09 10:58] LABS: CALCIUM 8.9 mg/dL (8.5-10.1); CREATININE 0.8 mg/dL (0.6-1.0); GFR 88.1; POTASSIUM 3.5 mmol/L (3.5-5.1)
[2017-05-09 11:00] LABS: SQUAMOUS EPITHELIAL CELL,UR FEW /LPF
[2017-05-09] MEDS ORDERED: HALOPERIDOL LACTATE 5 MG/ML VIAL. IVP ONE (11:00)
[2017-05-09] MEDS ORDERED: MORPHINE SULFATE 4 MG/ML DISP.SYRIN. IV ONE (11:00)
[2017-05-09] MEDS ORDERED: PROMETHAZINE IM 25 MG/ML VIAL IM ONE (11:00)
[2017-05-09] MEDS ORDERED: diphenhydrAMINE 50 MG/ML VIAL IVP ONE (11:00)
[2017-05-09 11:01] LABS: BACTERIA,URINE FEW /HPF (0-FEW); RBC,URINE 0 /HPF (0-2)
[2017-05-09 11:04] LABS: ALBUMIN 4.3 g/dL (3.4-5.0); ALBUMIN/GLOBULIN RATIO 1.2 (1.0-1.7); MAGNESIUM 1.8 mg/dL (1.8-2.4); TOTAL BILIRUBIN 0.4 mg/dL (0.2-1.0)
--- NOTE | 2017-05-09 11:04 | PHYS DOC ---
Past Medical History Past Medical History: Anxiety, Asthma, Cyclic Vomiting, Depression Additional Past Medical Histor: cyclic vomiting syndrome Past Surgical History: Cholecystectomy Alcohol Use: None Drug Use: Marijuana Adult General Chief Complaint Chief Complaint: NAUSEA/VOMITING/DIARRHA HPI HPI Patient is a 22 year old female presents to the emergency department stating that she has having generalized abdominal pain with nausea and vomiting that started this morning. She states that she is also had 3 episodes of diarrhea today with no blood noted. Patient states she has a history of cyclic vomiting in which she's had since she was 1 years old. Patient does state that she does consume marijuana. Patient denies any fever, chills. Patient states that she has been seen here before and has been provided with Haldol and Phenergan as well as Benadryl and this seems to help. Patient denies any possibility of being as her last menstrual cycle was last week. Review of Systems Review of Systems Constitutional: Denies fever or chills [] Eyes: Denies change in visual acuity, redness, or eye pain [] HENT: Denies nasal congestion or sore throat [] Respiratory: Denies cough or shortness of breath [] Cardiovascular: No additional information not addressed in HPI [] GI: abdominal pain, nausea, vomiting, and diarrhea [] : Denies dysuria or hematuria [] Musculoskeletal: Denies back pain or joint pain [] Integument: Denies rash or skin lesions [] Neurologic: Denies headache, focal weakness or sensory changes [] Endocrine: Denies polyuria or polydipsia [] Current Medications Current Medications Current Medications Medications (Trade) Dose Ordered Sig/Arnaldo Start Time Stop Time Status Last Admin Dose Admin Diphenhydramine HCl (Benadryl) 25 mg 1X ONCE 05/09/17 11:00 05/09/17 11:01 DC 05/09/17 11:01 25 MG Fentanyl Citrate (Fentanyl 2ml Vial) 50 mcg 1X ONCE 05/09/17 12:15 05/09/17 12:16 DC 05/09/17 12:17 50 MCG Haloperidol Lactate (Haldol) 2.5 mg 1X ONCE 05/09/17 11:00 05/09/17 11:01 DC 05/09/17 11:00 2.5 MG Info (Do NOT chart on this entry -- for MONITORING) 1 each PRN DAILY PRN 05/09/17 11:30 05/11/17 11:29 Iohexol (Omnipaque 300 Mg/ml) 75 ml 1X ONCE 05/09/17 11:30 05/09/17 11:31 DC 05/09/17 11:28 75 ML Morphine Sulfate 4 mg 1X ONCE 05/09/17 11:00 05/09/17 11:01 DC 05/09/17 11:01 4 MG Prochlorperazine Edisylate (Compazine) 10 mg 1X ONCE 05/09/17 12:15 05/09/17 12:16 DC 05/09/17 12:18 10 MG Promethazine HCl (Phenergan Im) 25 mg 1X ONCE 05/09/17 11:00 05/09/17 11:01 DC 05/09/17 11:01 25 MG Sodium Chloride 1,000 ml @ 1,000 mls/hr 1X ONCE 05/09/17 10:45 05/09/17 11:44 DC 05/09/17 11:00 1,000 MLS/HR Allergies Allergies Allergies Coded Allergies Type Severity Reaction Last Updated Verified coconut Allergy Severe Anaphylaxis 01/22/17 Yes Physical Exam Physical Exam Constitutional: Well developed, well nourished, no acute distress, non-toxic appearance. Patient was noted to be thrashing around in bed with abdominal pain. Patient with emesis bucket next to her with green colored emesis. HENT: Normocephalic, atraumatic, bilateral external ears normal, oropharynx moist, no oral exudates, nose normal. [] Eyes: PERRLA, EOMI, conjunctiva normal, no discharge. [] Neck: Normal range of motion, no tenderness, supple, no stridor. [] Cardiovascular:Heart rate regular rhythm, no murmur [] Lungs & Thorax: Bilateral breath sounds clear to auscultation [] Abdomen: Bowel sounds hypoactive, soft, generalized tenderness, however increase tenderness noted in the right lower quadrant area. No masses, no pulsatile masses. [] Skin: Warm, dry, no erythema, no rash. [] Back: No tenderness Extremities: No tenderness, no cyanosis, no clubbing, ROM intact, no edema. [] Neurologic: Alert and oriented X 3, normal motor function, normal sensory function, no focal deficits noted. [] Psychologic: Affect normal, judgement normal, mood normal. [] Current Patient Data Vital Signs Vital Signs Date Time Temp Pulse Resp B/P (MAP) Pulse Ox O2 Delivery O2 Flow Rate FiO2 05/09/17 12:15 116 20 144/72 (96) 98 Room Air 05/09/17 10:15 98.0 98.0 Lab Values Laboratory Tests Test 05/09/17 09:39 05/09/17 10:20 05/09/17 10:25 POC Urine HCG, Qualitative Hcg negative (Negative) White Blood Count 6.9 x10^3/uL (4.0-11.0) Red Blood Count 4.77 x10^6/uL (3.50-5.40) Hemoglobin 14.5 g/dL (12.0-15.5) Hematocrit 42.0 % (36.0-47.0) Mean Corpuscular Volume 88 fL (79-100) Mean Corpuscular Hemoglobin 30 pg (25-35) Mean Corpuscular Hemoglobin Concent 34 g/dL (31-37) Red Cell Distribution Width 13.5 % (11.5-14.5) Platelet Count 171 x10^3/uL (140-400) Neutrophils (%) (Auto) 60 % (31-73) Lymphocytes (%) (Auto) 32 % (24-48) Monocytes (%) (Auto) 7 % (0-9) Eosinophils (%) (Auto) 1 % (0-3) Basophils (%) (Auto) 1 % (0-3) Neutrophils # (Auto) 4.1 x10^3uL (1.8-7.7) Lymphocytes # (Auto) 2.2 x10^3/uL (1.0-4.8) Monocytes # (Auto) 0.5 x10^3/uL (0.0-1.1) Eosinophils # (Auto) 0.1 x10^3/uL (0.0-0.7) Basophils # (Auto) 0.0 x10^3/uL (0.0-0.2) Sodium Level 144 mmol/L (136-145) Potassium Level 3.5 mmol/L (3.5-5.1) Chloride Level 106 mmol/L (98-107) Carbon Dioxide Level 23 mmol/L (21-32) Anion Gap 15 (6-14) H Blood Urea Nitrogen 11 mg/dL (7-20) Creatinine 0.8 mg/dL (0.6-1.0) Estimated GFR (Cockcroft-Gault) 88.1 BUN/Creatinine Ratio 14 (6-20) Glucose Level 118 mg/dL (70-99) H Calcium Level 8.9 mg/dL (8.5-10.1) Magnesium Level 1.8 mg/dL (1.8-2.4) Total Bilirubin 0.4 mg/dL (0.2-1.0) Aspartate Amino Transferase (AST) 16 U/L (15-37) Alanine Aminotransferase (ALT) 15 U/L (14-59) Alkaline Phosphatase 69 U/L (46-116) Total Protein 8.0 g/dL (6.4-8.2) Albumin 4.3 g/dL (3.4-5.0) Albumin/Globulin Ratio 1.2 (1.0-1.7) Urine Collection Type Unknown Urine Color Yellow Urine Clarity Clear Urine pH 6.0 Urine Specific [place] 1.010 Urine Protein Negative mg/dL (NEG-TRACE) Urine Glucose (UA) Negative mg/dL (NEG) Urine Ketones (Stick) Negative mg/dL (NEG) Urine Blood Negative (NEG) Urine Nitrite Negative (NEG) Urine Bilirubin Negative (NEG) Urine Urobilinogen Dipstick 0.2 mg/dL (0.2 mg/dL) Urine Leukocyte Esterase Negative (NEG) Urine RBC 0 /HPF (0-2) Urine WBC 1-4 /HPF (0-4) Urine Squamous Epithelial Cells Few /LPF Urine Bacteria Few /HPF (0-FEW) Urine Mucus Marked /LPF Laboratory Tests 05/09/17 10:20 Laboratory Tests 05/09/17 10:20 EKG EKG [] Radiology/Procedures Radiology/Procedures [][facility] [address] [place] [address] IMAGING REPORT Signed 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 PHYSICIAN: MARIO WRIGHT APRN REASON: abd pain with nausea vomiting and diarrhea PROCEDURE: CT ABD PELV W/ IV CONTRST ONLY Indication nausea vomiting and diarrhea. Axial images through the abdomen and pelvis were obtained. No oral contrast was administered. Approximately 75 cc of Omnipaque 300 was administered intravenously. Note is made of a previous examination just over 4 years earlier. The lung bases are clear. There is a tiny amount of air in the urinary bladder. This may reflect instrumentation. Clinical correlation advised. The liver and spleen appear unremarkable. The gallbladder appears grossly normal. No pancreatic abnormality is seen. There are no adrenal masses and the kidneys appear unremarkable. No mass inflammatory process or acute finding in the abdomen is seen. No mass inflammatory process or acute finding in the pelvis is seen. IUD is noted. IMPRESSION: No acute finding seen in the abdomen or pelvis. Tiny amount of air in the urinary bladder may reflect instrumentation. Clinical correlation advised DICTATED and SIGNED BY: DAX HILL MD DATE: 05/09/17 1144 CC: MARIO WRIGHT APRN; NO PCP; NON,STAFF ~ Course & Med Decision Making Course & Med Decision Making Pertinent Labs and Imaging studies reviewed. (See chart for details) Labs pending at this time. Patient was provided with saline lock with IV fluids with Phenergan, Benadryl, and Haldol. She is also provided with morphine for pain and discomfort. 1200 Labs within normal limits, CT abd/pelvis normal. Patient still c/o vomiting with abdominal pain. Patient will be provided with compazine and fentanyl. She was instructed that the plan is to try and get the pain under control as well as the nausea. If this does of medication does not help the plan is to admit her. Patient agrees with treatment plan. 1300 spoke with regards to patient being placed into the hospital she recommends patient being placed in as an observation has requested no narcotics to be provided for the patient. Patient will be provided with Zofran, IV fluids , and bentyl. Dragon Disclaimer Dragon Disclaimer This electronic medical record was generated, in whole or in part, using a voice recognition dictation system. Departure Departure Impression: Primary Impression: Abdominal pain Additional Impression: Intractable nausea and vomiting Disposition: ADMITTED INPATIENT Admitting Physician: Other (Spoke with Dr Dickey) Condition: STABLE Referrals: NO PCP (PCP) Problem Qualifiers MARIO WRIGHT APRN May 09, 2017 11:03
[2017-05-09] MEDS ORDERED: CONTRAST GIVEN MC PRN (11:30)
[2017-05-09] MEDS ORDERED: IOHEXOL 300 MG/ML 75 ML VIAL IV ONE (11:30)
--- NOTE | 2017-05-09 11:52 | RAD ---
Indication nausea vomiting and diarrhea. Axial images through the abdomen and pelvis were obtained. No oral contrast was administered. Approximately 75 cc of Omnipaque 300 was administered intravenously. Note is made of a previous examination just over 4 years earlier. The lung bases are clear. There is a tiny amount of air in the urinary bladder. This may reflect instrumentation. Clinical correlation advised. The liver and spleen appear unremarkable. The gallbladder appears grossly normal. No pancreatic abnormality is seen. There are no adrenal masses and the kidneys appear unremarkable. No mass inflammatory process or acute finding in the abdomen is seen. No mass inflammatory process or acute finding in the pelvis is seen. IUD is noted. IMPRESSION: No acute finding seen in the abdomen or pelvis. Tiny amount of air in the urinary bladder may reflect instrumentation. Clinical correlation advised
[2017-05-09] MEDS ORDERED: fentaNYL PF VIAL 100 MCG/2 ML VIAL IV ONE (12:15)
[2017-05-09] MEDS ORDERED: PROCHLORPERAZINE 10 MG/2 ML VIAL. IM ONE (12:15)
[2017-05-09] MEDS ORDERED: ONDANSETRON PF 4 MG/2 ML VIAL. IV PRN ×2 (13:00→16:00)
[2017-05-09] MEDS ORDERED: DICYCLOMINE 20 MG/2 ML AMPUL. IM PRN (13:00)
[2017-05-09] MEDS: IV NORMAL SALINE 1000ML BAG 1,000 ML IV SCH ×2 (14:30→22:58)
[2017-05-09 14:32] VITALS: BP 152/95
[2017-05-09 15:00] VITALS: BP 152/95
[2017-05-09] MEDS ORDERED: KETOROLAC 15 MG/ML VIAL. IM PRN (16:00)
[2017-05-09] MEDS: PROCHLORPERAZINE 10 MG/2 ML VIAL. IV PRN (17:18)
[2017-05-09 19:00] VITALS: BP 150/106
[2017-05-09] MEDS: ONDANSETRON PF 4 MG/2 ML VIAL. IV PRN (20:20)
[2017-05-09] MEDS: FAMOTIDINE 20 MG/2 ML VIAL IVP SCH (20:20)
[2017-05-09] MEDS: HYDROmorphone 2 MG/ML VIAL IVP PRN (20:20)
[2017-05-09] MEDS: AMITRIPTYLINE HCL 50 MG TABLET PO SCH ×2 (20:21→20:28)
[2017-05-09] MEDS: ENOXAPARIN 40 MG/0.4 ML SYRINGE. SQ SCH ×2 (20:21→20:30)
--- NOTE | 2017-05-09 20:26 | HP ---
ADMIT DATE: 05/09/2017 CHIEF COMPLAINT: Intractable nausea and vomiting. HISTORY OF PRESENT ILLNESS: The patient is a 22-year-old woman with recurrent intractable nausea and vomiting. She relates that this actually started in her childhood and has continued ever since. She has been admitted at night time since October of this year for same diagnosis. Today, she essentially awoke in the morning, started with abdominal pain in her epigastric area followed by retching, thrown up, had diarrhea x 1 during all this and never noted any blood from either vomitus or bowel movements. She is convinced that it has nothing to do with smoking pot and is therefore unwilling to stop the habit. She received antiemetics in the Emergency Room including Phenergan, Haldol as well as Benadryl, which did not seem to help. She is therefore admitted for further management. PAST MEDICAL HISTORY: Recurrent intractable nausea, vomiting. No diagnosis of gastroparesis, asthma, anxiety/depression. She is status post cholecystectomy. FAMILY HISTORY: Noncontributory. SOCIAL HISTORY: She is , continues to smoke pot. No tobacco or alcohol use. ALLERGIES: No drug allergies, notes COCONUT allergy. MEDICATIONS: MAR reconciled with home medications. REVIEW OF SYSTEMS: Positive as per HPI. She denies any other symptoms in rest of organ system review. PHYSICAL EXAMINATION: VITAL SIGNS: From today show blood pressure of 152/95, heart rate of 78, respiratory rate at 20. She is afebrile. GENERAL: This is a 22-year-old well-nourished woman, pale appearing, lying in the position, appears miserable. HEENT: Shows no scleral icterus. NECK: Supple. LUNGS: Clear to auscultation bilaterally. HEART: Regular rate and rhythm. ABDOMEN: Has positive bowel sounds, soft, nontender. EXTREMITIES: Show no edema. SKIN: Warm, soft and dry without any rash. LABORATORY DATA: CBC with a WBC of 6.9, hemoglobin 14.5, platelets of 171. Chemistries with BUN and creatinine of 11 and 0.8, normal electrolytes, normal LFTs. Toxicology was negative throughout. Urine negative for infectious markers. ASSESSMENT AND PLAN: The patient is a 22-year-old with cyclical vomiting syndrome. We will admit her, try and get her current symptoms under control with antiemetics including Zofran and Phenergan IV q. 8 hours, the two can be alternated. In addition, she will get 0.5 of Ativan IV as an adjunct. She is requesting Dilaudid for pain medication, 0.4 mg will be made available for her. All IV drugs will be diluted in normal saline. She will remain n.p.o. for the time being. We will monitor all her labs. Replace electrolytes as indicated. For prophylaxis, she will be placed on Lovenox. ERICA DUCKWORTH MD DR: UR/nts JOB#: [id number] / [id number] [place]
[2017-05-09 22:53] VITALS: BP 136/95
--- NOTE | 2017-05-10 02:15 | ACF ---
Admission Forms Criteria VOMITING Clinical Indications for Admission to Inpatient Care ( Place 'X' for any and all applicable criteria): Admission is indicated for 1 or more of the following(1)(2)(3): [ ]I. Complete or partial gastrointestinal obstruction [ ]II. Vomiting due to significant metabolic derangement (eg, severe hypercalcemia, diabetic ketoacidosis) [ ]III. Other cause of vomiting requiring hospitalization (eg, poisoning, increased intracranial pressure) [X ]IV. Inpatient admission required rather than observation care because of 1 or more of the following [ ]i) Hemodynamic instability [ X]ii) Vomiting that is severe or persistent indicated by 1 or more of the following []1) Numerous episodes of vomiting in past 24hours (eg , every 1 to 2 hours) 2) Suggests severe underlying cause or complication (eg , projectile, feculent, bilious, coffee ground, bloody) 3) Appropriate antiemetic treatment (eg, repeated oral or parenteral dosing) does not sufficiently reduce vomiting within 12 to 24 hours of treatment [X]4) Treatment regimen necessary to adequately control vomiting requires inpatient level of care (eg, not immediately available in outpatient setting) [ ]iii) Severe electrolyte abnormalities requiring inpatient care [ ]iv) Severe pain requiring acute inpatient management( Continuous or frequent (eg, every 2 to 4 hours) parental analgesics or analgesic regimen that can only be performed or initiated in inpatient setting) [ ]v) High fever or infection requiring inpatient admission as indicated by 1 or more of the following(7)(8): [ ]1) Appropriate outpatient or observation care antimicrobial treatment unavailable, not effective, or not feasible [ ]2) Documented bacteremia [ ]3) Temp >104.9 degrees F (40.5 degrees C) (oral) [ ]4) Temp >103.1 degrees F (39.5 C) (oral) or <96.8 degrees F (36 C) (rectal) that does not respond to all emergency treatment measures [ ]vi) Acute renal failure [ ]vii) IV fluid required rather than oral rehydration to replace significant on going losses (greater than 3 L/m2 per day) [ ]viii) Parenteral nutrition regimen that must be implemented on inpatient basis [ ]ix) Other condition, treatment or monitoring requiring inpatient admission Extended stay beyond goal length of stay may be needed for(1)(4): [ ]a) Severe vomiting [ ]b) Persistent vomiting, vital sign changes, severe electrolyte imbalance , or diagnosed cause of vomiting that requires continued hospitalization (eg, gastrointestinal obstruction , increased intracranial pressure) [ ]c) Surgery to treat identified causes of vomiting (eg, bowel obstruction , intracranial process) [ ]d) Comorbid illness that requires inpatient care (eg, acute heart failure , renal failure) [ ]e) Need for inpatient endoscopy The original [employer] content created by [employer] has been revised. The portions of the content which have been revised are identified through the use of italic text or in bold, and [facility] has neither reviewed nor approved the modified material. All other unmodified content is copyright [employer]. Please see references footnoted in the original [employer] edition 2016 Admission Criteria Met?: Yes BERENICE GARCIA May 10, 2017 02:15
[2017-05-10 03:00] VITALS: BP 103/53
[2017-05-10 04:54] LABS: BASO % 0 % (0-3); EOS % 0 % (0-3); HEMATOCRIT 36.4 % (36.0-47.0); HEMOGLOBIN 12.7 g/dL (12.0-15.5); LYMPH # 1.2 x10^3/uL (1.0-4.8); LYMPH % 12 % (24-48); MEAN CORPUSCULAR HEMOGLOBIN 31 pg (25-35); MEAN CORPUSCULAR HGB CONC 35 g/dL (31-37); MEAN CORPUSCULAR VOLUME 89 fL (79-100); MONO % 5 % (0-9); NEUT % 83 % (31-73); PLATELET COUNT 164 x10^3/uL (140-400); RED BLOOD COUNT 4.12 x10^6/uL (3.50-5.40); RED CELL DISTRIBUTION WIDTH 13.6 % (11.5-14.5); WHITE BLOOD COUNT 10.3 x10^3/uL (4.0-11.0)
[2017-05-10 05:21] LABS: CALCIUM 7.8 mg/dL (8.5-10.1); CREATININE 0.6 mg/dL (0.6-1.0); GFR 122.8; POTASSIUM 3.2 mmol/L (3.5-5.1)
[2017-05-10 07:00] VITALS: BP_SYST 172; BP_SYST 174; BP_DIAS 102; BP_DIAS 116
[2017-05-10] MEDS: ONDANSETRON PF 4 MG/2 ML VIAL. IV PRN (07:24)
[2017-05-10] MEDS: HYDROmorphone 2 MG/ML VIAL IVP PRN ×2 (07:25→18:08)
[2017-05-10] MEDS: FAMOTIDINE 20 MG/2 ML VIAL IVP SCH ×2 (09:15→20:48)
[2017-05-10 11:00] VITALS: BP_SYST 85; BP_SYST 95; BP_DIAS 42; BP_DIAS 47
[2017-05-10] MEDS: IV NORMAL SALINE 1000ML BAG 1,000 ML IV SCH (12:32)
[2017-05-10] MEDS: PROCHLORPERAZINE 10 MG/2 ML VIAL. IV PRN (14:20)
[2017-05-10 15:00] VITALS: BP 105/63
--- NOTE | 2017-05-10 15:55 | PDOC ---
PROGRESS NOTES Chief Complaint Chief Complaint cyclical vomiting syndrome. acute nausea and vomiting with abd pain prior chronic THC use, will check History of Present Illness History of Present Illness Zofran and Phenergan IV q. 8 hours, 0.5 of Ativan IV as an adjunct. dilaudid PRN All IV drugs will be diluted in normal saline. Vitals Vitals Vital Signs Date Time Temp Pulse Resp B/P (MAP) Pulse Ox O2 Delivery O2 Flow Rate FiO2 05/10/17 15:00 97.6 58 18 105/63 (77) 100 Room Air 97.6 Physical Exam General: Alert, Oriented X3, Cooperative, No acute distress Heart: No murmurs Lungs: Clear, Other Abdomen: Normal bowel sounds, Soft Extremities: No clubbing Skin: No rashes Labs LABS Laboratory Tests Test 05/10/17 03:25 05/10/17 03:35 Sodium Level 142 mmol/L (136-145) Potassium Level 3.2 mmol/L (3.5-5.1) Chloride Level 106 mmol/L (98-107) Carbon Dioxide Level 26 mmol/L (21-32) Anion Gap 10 (6-14) Blood Urea Nitrogen 6 mg/dL (7-20) Creatinine 0.6 mg/dL (0.6-1.0) Estimated GFR (Cockcroft-Gault) 122.8 Glucose Level 107 mg/dL (70-99) Calcium Level 7.8 mg/dL (8.5-10.1) White Blood Count 10.3 x10^3/uL (4.0-11.0) Red Blood Count 4.12 x10^6/uL (3.50-5.40) Hemoglobin 12.7 g/dL (12.0-15.5) Hematocrit 36.4 % (36.0-47.0) Mean Corpuscular Volume 89 fL (79-100) Mean Corpuscular Hemoglobin 31 pg (25-35) Mean Corpuscular Hemoglobin Concent 35 g/dL (31-37) Red Cell Distribution Width 13.6 % (11.5-14.5) Platelet Count 164 x10^3/uL (140-400) Neutrophils (%) (Auto) 83 % (31-73) Lymphocytes (%) (Auto) 12 % (24-48) Monocytes (%) (Auto) 5 % (0-9) Eosinophils (%) (Auto) 0 % (0-3) Basophils (%) (Auto) 0 % (0-3) Neutrophils # (Auto) 8.6 x10^3uL (1.8-7.7) Lymphocytes # (Auto) 1.2 x10^3/uL (1.0-4.8) Monocytes # (Auto) 0.5 x10^3/uL (0.0-1.1) Eosinophils # (Auto) 0.0 x10^3/uL (0.0-0.7) Basophils # (Auto) 0.0 x10^3/uL (0.0-0.2) Magnesium Level 1.8 mg/dL (1.8-2.4) Review of Systems Review of Systems nausea and abd pain Assessment and Plan Assessmemt and Plan Problems Medical Problems: (1) Abdominal pain Status: Acute (2) Intractable nausea and vomiting Status: Acute Problems: Comment Review of Relevant I have reviewed the following items miguel (where applicable) has been applied. Labs Laboratory Tests Test 05/09/17 09:39 05/09/17 10:20 05/09/17 10:25 05/10/17 03:25 Bedside Urine HCG, Qualitative Hcg negative (Negative) White Blood Count 6.9 x10^3/uL (4.0-11.0) Red Blood Count 4.77 x10^6/uL (3.50-5.40) Hemoglobin 14.5 g/dL (12.0-15.5) Hematocrit 42.0 % (36.0-47.0) Mean Corpuscular Volume 88 fL (79-100) Mean Corpuscular Hemoglobin 30 pg (25-35) Mean Corpuscular Hemoglobin Concent 34 g/dL (31-37) Red Cell Distribution Width 13.5 % (11.5-14.5) Platelet Count 171 x10^3/uL (140-400) Neutrophils (%) (Auto) 60 % (31-73) Lymphocytes (%) (Auto) 32 % (24-48) Monocytes (%) (Auto) 7 % (0-9) Eosinophils (%) (Auto) 1 % (0-3) Basophils (%) (Auto) 1 % (0-3) Neutrophils # (Auto) 4.1 x10^3uL (1.8-7.7) Lymphocytes # (Auto) 2.2 x10^3/uL (1.0-4.8) Monocytes # (Auto) 0.5 x10^3/uL (0.0-1.1) Eosinophils # (Auto) 0.1 x10^3/uL (0.0-0.7) Basophils # (Auto) 0.0 x10^3/uL (0.0-0.2) Sodium Level 144 mmol/L (136-145) 142 mmol/L (136-145) Potassium Level 3.5 mmol/L (3.5-5.1) 3.2 mmol/L (3.5-5.1) Chloride Level 106 mmol/L (98-107) 106 mmol/L (98-107) Carbon Dioxide Level 23 mmol/L (21-32) 26 mmol/L (21-32) Anion Gap 15 (6-14) 10 (6-14) Blood Urea Nitrogen 11 mg/dL (7-20) 6 mg/dL (7-20) Creatinine 0.8 mg/dL (0.6-1.0) 0.6 mg/dL (0.6-1.0) Estimated GFR (Cockcroft-Gault) 88.1 122.8 BUN/Creatinine Ratio 14 (6-20) Glucose Level 118 mg/dL (70-99) 107 mg/dL (70-99) Calcium Level 8.9 mg/dL (8.5-10.1) 7.8 mg/dL (8.5-10.1) Magnesium Level 1.8 mg/dL (1.8-2.4) Total Bilirubin 0.4 mg/dL (0.2-1.0) Aspartate Amino Transf (AST/SGOT) 16 U/L (15-37) Alanine Aminotransferase (ALT/SGPT) 15 U/L (14-59) Alkaline Phosphatase 69 U/L (46-116) Total Protein 8.0 g/dL (6.4-8.2) Albumin 4.3 g/dL (3.4-5.0) Albumin/Globulin Ratio 1.2 (1.0-1.7) Urine Collection Type Unknown Urine Color Yellow Urine Clarity Clear Urine pH 6.0 Urine Specific [place] 1.010 Urine Protein Negative mg/dL (NEG-TRACE) Urine Glucose (UA) Negative mg/dL (NEG) Urine Ketones (Stick) Negative mg/dL (NEG) Urine Blood Negative (NEG) Urine Nitrite Negative (NEG) Urine Bilirubin Negative (NEG) Urine Urobilinogen Dipstick 0.2 mg/dL (0.2 mg/dL) Urine Leukocyte Esterase Negative (NEG) Urine RBC 0 /HPF (0-2) Urine WBC 1-4 /HPF (0-4) Urine Squamous Epithelial Cells Few /LPF Urine Bacteria Few /HPF (0-FEW) Urine Mucus Marked /LPF Test 05/10/17 03:35 White Blood Count 10.3 x10^3/uL (4.0-11.0) Red Blood Count 4.12 x10^6/uL (3.50-5.40) Hemoglobin 12.7 g/dL (12.0-15.5) Hematocrit 36.4 % (36.0-47.0) Mean Corpuscular Volume 89 fL (79-100) Mean Corpuscular Hemoglobin 31 pg (25-35) Mean Corpuscular Hemoglobin Concent 35 g/dL (31-37) Red Cell Distribution Width 13.6 % (11.5-14.5) Platelet Count 164 x10^3/uL (140-400) Neutrophils (%) (Auto) 83 % (31-73) Lymphocytes (%) (Auto) 12 % (24-48) Monocytes (%) (Auto) 5 % (0-9) Eosinophils (%) (Auto) 0 % (0-3) Basophils (%) (Auto) 0 % (0-3) Neutrophils # (Auto) 8.6 x10^3uL (1.8-7.7) Lymphocytes # (Auto) 1.2 x10^3/uL (1.0-4.8) Monocytes # (Auto) 0.5 x10^3/uL (0.0-1.1) Eosinophils # (Auto) 0.0 x10^3/uL (0.0-0.7) Basophils # (Auto) 0.0 x10^3/uL (0.0-0.2) Magnesium Level 1.8 mg/dL (1.8-2.4) Laboratory Tests Test 05/10/17 03:25 05/10/17 03:35 Sodium Level 142 mmol/L (136-145) Potassium Level 3.2 mmol/L (3.5-5.1) Chloride Level 106 mmol/L (98-107) Carbon Dioxide Level 26 mmol/L (21-32) Anion Gap 10 (6-14) Blood Urea Nitrogen 6 mg/dL (7-20) Creatinine 0.6 mg/dL (0.6-1.0) Estimated GFR (Cockcroft-Gault) 122.8 Glucose Level 107 mg/dL (70-99) Calcium Level 7.8 mg/dL (8.5-10.1) White Blood Count 10.3 x10^3/uL (4.0-11.0) Red Blood Count 4.12 x10^6/uL (3.50-5.40) Hemoglobin 12.7 g/dL (12.0-15.5) Hematocrit 36.4 % (36.0-47.0) Mean Corpuscular Volume 89 fL (79-100) Mean Corpuscular Hemoglobin 31 pg (25-35) Mean Corpuscular Hemoglobin Concent 35 g/dL (31-37) Red Cell Distribution Width 13.6 % (11.5-14.5) Platelet Count 164 x10^3/uL (140-400) Neutrophils (%) (Auto) 83 % (31-73) Lymphocytes (%) (Auto) 12 % (24-48) Monocytes (%) (Auto) 5 % (0-9) Eosinophils (%) (Auto) 0 % (0-3) Basophils (%) (Auto) 0 % (0-3) Neutrophils # (Auto) 8.6 x10^3uL (1.8-7.7) Lymphocytes # (Auto) 1.2 x10^3/uL (1.0-4.8) Monocytes # (Auto) 0.5 x10^3/uL (0.0-1.1) Eosinophils # (Auto) 0.0 x10^3/uL (0.0-0.7) Basophils # (Auto) 0.0 x10^3/uL (0.0-0.2) Magnesium Level 1.8 mg/dL (1.8-2.4) Medications Current Medications Sodium Chloride 1,000 ml @ 1,000 mls/hr 1X ONCE IV Last administered on t 11:00; Start 05/09/17 at 10:45; Stop 05/09/17 at 11:44; Status DC Promethazine HCl (Phenergan Im) 25 mg 1X ONCE IM Last administered on 11:01; Start 05/09/17 at 11:00; Stop 05/09/17 at 11:01; Status DC Haloperidol Lactate (Haldol) 2.5 mg 1X ONCE IVP Last administered on 11:00; Start 05/09/17 at 11:00; Stop 05/09/17 at 11:01; Status DC Morphine Sulfate 4 mg 1X ONCE IV Last administered on 05/09/17 11:01; Start 05/09/17 at 11:00; Stop 05/09/17 at 11:01; Status DC Diphenhydramine HCl (Benadryl) 25 mg 1X ONCE IVP Last administered on 11:01; Start 05/09/17 at 11:00; Stop 05/09/17 at 11:01; Status DC Iohexol (Omnipaque 300 Mg/ml) 75 ml 1X ONCE IV Last administered on 05/09/17 11:28; Start 05/09/17 at 11:30; Stop 05/09/17 at 11:31; Status DC Info (Do NOT chart on this entry -- for MONITORING) 1 each PRN DAILY PRN MC SEE COMMENTS; Start 05/09/17 at 11:30; Stop 05/11/17 at 11:29 Fentanyl Citrate (Fentanyl 2ml Vial) 50 mcg 1X ONCE IV Last administered on 12:17; Start 05/09/17 at 12:15; Stop 05/09/17 at 12:16; Status DC Prochlorperazine Edisylate (Compazine) 10 mg 1X ONCE IM Last administered on 12:18; Start 05/09/17 at 12:15; Stop 05/09/17 at 12:16; Status DC Ondansetron HCl (Zofran) 4 mg PRN Q8HRS PRN IV NAUSEA/VOMITING Last administered on 05/09/17 14:12; Start 05/09/17 at 13:00; Stop 05/09/17 at 15:49 ; Status DC Sodium Chloride 1,000 ml @ 100 mls/hr Q10H IV Last administered on 05/10/17 12:32; Start 05/09/17 at 12:58; Stop 05/10/17 at 12:57; Status DC Dicyclomine HCl (Bentyl) 10 mg Q8HRS PRN IM pain Last administered on 14:12; Start 05/09/17 at 13:00 Ondansetron HCl (Zofran) 10 mg PRN Q8HRS PRN IV NAUSEA/VOMITING; Start at 16:00; Stop 05/09/17 at 18:59; Status DC Ketorolac Tromethamine (Toradol) 15 mg PRN Q6HRS PRN IM pain Last administered on 05/09/17 17:18; Start 05/09/17 at 16:00; Stop 05/14/17 at 15:59 Prochlorperazine Edisylate (Compazine) 10 mg PRN Q8HRS PRN IV NAUSEA/VOMITING 2ND CHOICE Last administered on 05/10/17 14:20; Start 05/09/17 at 16:00 Amitriptyline HCl (Amitriptyline HCl) 50 mg QHS PO ; Start 05/09/17 at 21:00 Ondansetron HCl (Zofran) 8 mg PRN Q8HRS PRN IV NAUSEA/VOMITING 1ST CHOICE Last administered on 05/10/17 07:24; Start 05/09/17 at 19:00 Lorazepam (Ativan) 0.5 mg PRN Q8HRS PRN IV nausea; Start 05/09/17 at 19:00 Hydromorphone HCl (Dilaudid) 0.4 mg PRN Q4HRS PRN IVP PAIN Last administered on 05/10/17 07:25; Start 05/09/17 at 19:00 Enoxaparin Sodium (Lovenox 40mg Syringe) 40 mg Q24H SQ ; Start 05/09/17 at 21:00 Famotidine (Pepcid) 20 mg BID IVP Last administered on 05/10/17 09:15; Start 05/09/17 at 21:00 Active Scripts Active Famotidine 20 Mg Tablet 20 Mg PO DAILY Zofran Odt (Ondansetron) 4 Mg Tab.rapdis 1 Tab SL Q8HRS Compazine (Prochlorperazine Maleate) 10 Mg Tablet 10 Mg PO Q8HRS Amitriptyline Hcl 50 Mg Tablet 1 Tab PO QHS Vitals/I & O Vital Sign - Last 24 Hours 05/09/17 05/09/17 05/09/17 05/09/17 19:00 20:00 20:20 22:53 Temp 98.7 98.2 98.7 98.2 Pulse 107 100 Resp 22 20 B/P (MAP) 150/106 (121) 136/95 (109) Pulse Ox 99 97 98 O2 Delivery Room Air Room Air Room Air 05/10/17 05/10/17 05/10/17 05/10/17 03:00 07:00 07:00 07:25 Temp 98.7 97.6 98.7 97.6 Pulse 95 54 Resp 17 B/P (MAP) 103/53 (70) 172/116 (134) 174/102 (126) Pulse Ox 97 100 97 O2 Delivery Room Air Room Air Room Air 05/10/17 05/10/17 05/10/17 05/10/17 08:00 09:03 11:00 11:00 Temp 97.7 97.7 Pulse 55 Resp 18 B/P (MAP) 95/47 (63) 85/42 (56) Pulse Ox 97 100 O2 Delivery Room Air Room Air Room Air 05/10/17 15:00 Temp 97.6 97.6 Pulse 58 Resp 18 B/P (MAP) 105/63 (77) Pulse Ox 100 O2 Delivery Room Air Intake and Output 05/09/17 05/09/17 05/10/17 15:00 23:00 07:00 Intake Total 1000 ml Output Total 50 ml Balance 1000 ml -50 ml RICK HUNTER MD May 10, 2017 15:55
[2017-05-10] MEDS: POTASSIUM CL 20MEQ D5-0.45NACL 1,000 ML IV SCH (16:30)
[2017-05-10] MEDS ORDERED: MAGNESIUM SULFATE 2GM 50 ML IV ONE (16:30)
[2017-05-10 19:00] VITALS: BP 103/68
[2017-05-10] MEDS: AMITRIPTYLINE HCL 50 MG TABLET PO SCH (20:48)
[2017-05-10] MEDS: ENOXAPARIN 40 MG/0.4 ML SYRINGE. SQ SCH (20:50)
[2017-05-10 23:00] VITALS: BP 118/77
[2017-05-11] MEDS: POTASSIUM CL 20MEQ D5-0.45NACL 1,000 ML IV SCH ×2 (02:41→11:29)
[2017-05-11] MEDS: HYDROmorphone 2 MG/ML VIAL IVP PRN ×2 (02:53→07:37)
[2017-05-11] MEDS: ONDANSETRON PF 4 MG/2 ML VIAL. IV PRN (03:00)
[2017-05-11 07:30] VITALS: BP 103/64
[2017-05-11] MEDS: FAMOTIDINE 20 MG/2 ML VIAL IVP SCH (07:37)
[2017-05-11] MEDS ORDERED: ONDA4TAB10 SL (09:10)
[2017-05-11] MEDS ORDERED: PROC10TA57 PO (09:10)
[2017-05-11] MEDS ORDERED: FAMO20TA5 PO (09:10)
--- NOTE | 2017-05-11 09:11 | PDOC ---
PROGRESS NOTES Chief Complaint Chief Complaint cyclical vomiting syndrome. acute nausea and vomiting with abd pain prior chronic THC use, will check History of Present Illness History of Present Illness advance diet if able to hemalatha, DC today cont IV fluid until DC PO K+ today Vitals Vitals Vital Signs Date Time Temp Pulse Resp B/P (MAP) Pulse Ox O2 Delivery O2 Flow Rate FiO2 05/11/17 07:37 99 Room Air 05/11/17 07:30 97.5 57 18 103/64 (77) 97.5 Physical Exam General: Alert, Oriented X3, Cooperative, No acute distress Heart: No murmurs Lungs: Clear, Other Abdomen: Normal bowel sounds, Soft Extremities: No clubbing Skin: No rashes Review of Systems Review of Systems + nausea, no pain feels improved Assessment and Plan Assessmemt and Plan Problems Medical Problems: (1) Abdominal pain Status: Acute (2) Intractable nausea and vomiting Status: Acute Problems: Comment Review of Relevant I have reviewed the following items miguel (where applicable) has been applied. Labs Laboratory Tests Test 05/09/17 09:39 05/09/17 10:20 05/09/17 10:25 05/10/17 03:25 Bedside Urine HCG, Qualitative Hcg negative (Negative) White Blood Count 6.9 x10^3/uL (4.0-11.0) Red Blood Count 4.77 x10^6/uL (3.50-5.40) Hemoglobin 14.5 g/dL (12.0-15.5) Hematocrit 42.0 % (36.0-47.0) Mean Corpuscular Volume 88 fL (79-100) Mean Corpuscular Hemoglobin 30 pg (25-35) Mean Corpuscular Hemoglobin Concent 34 g/dL (31-37) Red Cell Distribution Width 13.5 % (11.5-14.5) Platelet Count 171 x10^3/uL (140-400) Neutrophils (%) (Auto) 60 % (31-73) Lymphocytes (%) (Auto) 32 % (24-48) Monocytes (%) (Auto) 7 % (0-9) Eosinophils (%) (Auto) 1 % (0-3) Basophils (%) (Auto) 1 % (0-3) Neutrophils # (Auto) 4.1 x10^3uL (1.8-7.7) Lymphocytes # (Auto) 2.2 x10^3/uL (1.0-4.8) Monocytes # (Auto) 0.5 x10^3/uL (0.0-1.1) Eosinophils # (Auto) 0.1 x10^3/uL (0.0-0.7) Basophils # (Auto) 0.0 x10^3/uL (0.0-0.2) Sodium Level 144 mmol/L (136-145) 142 mmol/L (136-145) Potassium Level 3.5 mmol/L (3.5-5.1) 3.2 mmol/L (3.5-5.1) Chloride Level 106 mmol/L (98-107) 106 mmol/L (98-107) Carbon Dioxide Level 23 mmol/L (21-32) 26 mmol/L (21-32) Anion Gap 15 (6-14) 10 (6-14) Blood Urea Nitrogen 11 mg/dL (7-20) 6 mg/dL (7-20) Creatinine 0.8 mg/dL (0.6-1.0) 0.6 mg/dL (0.6-1.0) Estimated GFR (Cockcroft-Gault) 88.1 122.8 BUN/Creatinine Ratio 14 (6-20) Glucose Level 118 mg/dL (70-99) 107 mg/dL (70-99) Calcium Level 8.9 mg/dL (8.5-10.1) 7.8 mg/dL (8.5-10.1) Magnesium Level 1.8 mg/dL (1.8-2.4) Total Bilirubin 0.4 mg/dL (0.2-1.0) Aspartate Amino Transf (AST/SGOT) 16 U/L (15-37) Alanine Aminotransferase (ALT/SGPT) 15 U/L (14-59) Alkaline Phosphatase 69 U/L (46-116) Total Protein 8.0 g/dL (6.4-8.2) Albumin 4.3 g/dL (3.4-5.0) Albumin/Globulin Ratio 1.2 (1.0-1.7) Urine Collection Type Unknown Urine Color Yellow Urine Clarity Clear Urine pH 6.0 Urine Specific [place] 1.010 Urine Protein Negative mg/dL (NEG-TRACE) Urine Glucose (UA) Negative mg/dL (NEG) Urine Ketones (Stick) Negative mg/dL (NEG) Urine Blood Negative (NEG) Urine Nitrite Negative (NEG) Urine Bilirubin Negative (NEG) Urine Urobilinogen Dipstick 0.2 mg/dL (0.2 mg/dL) Urine Leukocyte Esterase Negative (NEG) Urine RBC 0 /HPF (0-2) Urine WBC 1-4 /HPF (0-4) Urine Squamous Epithelial Cells Few /LPF Urine Bacteria Few /HPF (0-FEW) Urine Mucus Marked /LPF Test 05/10/17 03:35 White Blood Count 10.3 x10^3/uL (4.0-11.0) Red Blood Count 4.12 x10^6/uL (3.50-5.40) Hemoglobin 12.7 g/dL (12.0-15.5) Hematocrit 36.4 % (36.0-47.0) Mean Corpuscular Volume 89 fL (79-100) Mean Corpuscular Hemoglobin 31 pg (25-35) Mean Corpuscular Hemoglobin Concent 35 g/dL (31-37) Red Cell Distribution Width 13.6 % (11.5-14.5) Platelet Count 164 x10^3/uL (140-400) Neutrophils (%) (Auto) 83 % (31-73) Lymphocytes (%) (Auto) 12 % (24-48) Monocytes (%) (Auto) 5 % (0-9) Eosinophils (%) (Auto) 0 % (0-3) Basophils (%) (Auto) 0 % (0-3) Neutrophils # (Auto) 8.6 x10^3uL (1.8-7.7) Lymphocytes # (Auto) 1.2 x10^3/uL (1.0-4.8) Monocytes # (Auto) 0.5 x10^3/uL (0.0-1.1) Eosinophils # (Auto) 0.0 x10^3/uL (0.0-0.7) Basophils # (Auto) 0.0 x10^3/uL (0.0-0.2) Magnesium Level 1.8 mg/dL (1.8-2.4) Medications Current Medications Sodium Chloride 1,000 ml @ 1,000 mls/hr 1X ONCE IV Last administered on t 11:00; Start 05/09/17 at 10:45; Stop 05/09/17 at 11:44; Status DC Promethazine HCl (Phenergan Im) 25 mg 1X ONCE IM Last administered on 11:01; Start 05/09/17 at 11:00; Stop 05/09/17 at 11:01; Status DC Haloperidol Lactate (Haldol) 2.5 mg 1X ONCE IVP Last administered on 11:00; Start 05/09/17 at 11:00; Stop 05/09/17 at 11:01; Status DC Morphine Sulfate 4 mg 1X ONCE IV Last administered on 05/09/17 11:01; Start 05/09/17 at 11:00; Stop 05/09/17 at 11:01; Status DC Diphenhydramine HCl (Benadryl) 25 mg 1X ONCE IVP Last administered on 11:01; Start 05/09/17 at 11:00; Stop 05/09/17 at 11:01; Status DC Iohexol (Omnipaque 300 Mg/ml) 75 ml 1X ONCE IV Last administered on 05/09/17 11:28; Start 05/09/17 at 11:30; Stop 05/09/17 at 11:31; Status DC Info (Do NOT chart on this entry -- for MONITORING) 1 each PRN DAILY PRN MC SEE COMMENTS; Start 05/09/17 at 11:30; Stop 05/11/17 at 11:29 Fentanyl Citrate (Fentanyl 2ml Vial) 50 mcg 1X ONCE IV Last administered on 12:17; Start 05/09/17 at 12:15; Stop 05/09/17 at 12:16; Status DC Prochlorperazine Edisylate (Compazine) 10 mg 1X ONCE IM Last administered on 12:18; Start 05/09/17 at 12:15; Stop 05/09/17 at 12:16; Status DC Ondansetron HCl (Zofran) 4 mg PRN Q8HRS PRN IV NAUSEA/VOMITING Last administered on 05/09/17 14:12; Start 05/09/17 at 13:00; Stop 05/09/17 at 15:49 ; Status DC Sodium Chloride 1,000 ml @ 100 mls/hr Q10H IV Last administered on 05/10/17 12:32; Start 05/09/17 at 12:58; Stop 05/10/17 at 12:57; Status DC Dicyclomine HCl (Bentyl) 10 mg Q8HRS PRN IM pain Last administered on 14:12; Start 05/09/17 at 13:00 Ondansetron HCl (Zofran) 10 mg PRN Q8HRS PRN IV NAUSEA/VOMITING; Start at 16:00; Stop 05/09/17 at 18:59; Status DC Ketorolac Tromethamine (Toradol) 15 mg PRN Q6HRS PRN IM pain Last administered on 05/09/17 17:18; Start 05/09/17 at 16:00; Stop 05/14/17 at 15:59 Prochlorperazine Edisylate (Compazine) 10 mg PRN Q8HRS PRN IV NAUSEA/VOMITING 2ND CHOICE Last administered on 05/10/17 14:20; Start 05/09/17 at 16:00 Amitriptyline HCl (Amitriptyline HCl) 50 mg QHS PO Last administered on 20:48; Start 05/09/17 at 21:00 Ondansetron HCl (Zofran) 8 mg PRN Q8HRS PRN IV NAUSEA/VOMITING 1ST CHOICE Last administered on 05/11/17 03:00; Start 05/09/17 at 19:00 Lorazepam (Ativan) 0.5 mg PRN Q8HRS PRN IV nausea; Start 05/09/17 at 19:00 Hydromorphone HCl (Dilaudid) 0.4 mg PRN Q4HRS PRN IVP PAIN Last administered on 05/11/17 07:37; Start 05/09/17 at 19:00 Enoxaparin Sodium (Lovenox 40mg Syringe) 40 mg Q24H SQ ; Start 05/09/17 at 21:00 Famotidine (Pepcid) 20 mg BID IVP Last administered on 05/11/17 07:37; Start 05/09/17 at 21:00 Potassium Chloride/Dextrose/ Sod Cl 1,000 ml @ 100 mls/hr Q10H IV Last administered on 05/11/17 02:41; Start 05/10/17 at 16:30 Magnesium Sulfate/ Dextrose 50 ml @ 25 mls/hr 1X ONCE IV Last administered on 05/10/17 16:19; Start 05/10/17 at 16:30; Stop 05/10/17 at 18:29; Status DC Active Scripts Active Famotidine 20 Mg Tablet 20 Mg PO DAILY Zofran Odt (Ondansetron) 4 Mg Tab.rapdis 1 Tab SL Q8HRS Compazine (Prochlorperazine Maleate) 10 Mg Tablet 10 Mg PO Q8HRS Amitriptyline Hcl 50 Mg Tablet 1 Tab PO QHS Vitals/I & O Vital Sign - Last 24 Hours 05/10/17 05/10/17 05/10/17 05/10/17 11:00 11:00 15:00 18:08 Temp 97.7 97.6 97.7 97.6 Pulse 55 58 Resp 18 18 B/P (MAP) 95/47 (63) 85/42 (56) 105/63 (77) Pulse Ox 100 100 100 O2 Delivery Room Air Room Air Room Air 05/10/17 05/10/17 05/10/17 05/11/17 19:00 20:04 23:00 02:53 Temp 97.7 99.2 97.7 99.2 Pulse 93 83 Resp 20 20 18 B/P (MAP) 103/68 (80) 118/77 (91) Pulse Ox 95 99 99 O2 Delivery Room Air Room Air Room Air Room Air 05/11/17 05/11/17 05/11/17 03:23 07:30 07:37 Temp 97.5 97.5 Pulse 57 Resp 18 18 B/P (MAP) 103/64 (77) Pulse Ox 99 98 99 O2 Delivery Room Air Room Air Room Air Intake and Output 05/10/17 05/10/17 05/11/17 15:00 23:00 07:00 Intake Total 1000 ml 0 ml 600 ml Balance 1000 ml 0 ml 600 ml RICK HUNTER MD May 11, 2017 09:11
[2017-05-11] MEDS ORDERED: POTASSIUM CHLORIDE 20 MEQ TABLET.ER. PO ONE (09:45)
[2017-05-11 10:30] VITALS: BP 110/72
== END 2017-05-11 13:06 | disposition home or self-care (01) ==
LOC: ER 09:58 → 5 NORTH 12:57
PROVIDERS: ADMIT Internal Medicine Hematology & Oncology; ATTEND Internal Medicine Hematology & Oncology
DX: G43.A0 Cyclical vomiting, in migraine, not intractable (principal); R11.0 Nausea; R10.13 Epigastric pain; F41.9 Anxiety disorder, unspecified; F32.9 Major depressive disorder, single episode, unspecified; J45.909 Unspecified asthma, uncomplicated; F12.90 Cannabis use, unspecified, uncomplicated; Z90.49 Acquired absence of other specified parts of digestive tract
CPT/HCPCS: 36415; 74177; 80048; 80053; 81001; 81025; 83735; 85027; 96361; 96365; 96366; 96372; 96375; 96376; 99285; G0378; J0500; J0780; J1170; J1200; J1630; J1885; J2270; J2405; J2550; J3010; J7030; J7060; Q9967; S0028; G0379; J1650

== ENCOUNTER 2017-05-15 03:10 | Emergency (ER) | payer SELFPAY ==
[2017-05-15] MEDS ORDERED: IV NORMAL SALINE 1000ML BAG 1,000 ML IV ONE (03:30)
--- NOTE | 2017-05-15 03:34 | ED.ADGEN ---
Past Medical History Past Medical History: Anxiety, Other Additional Past Medical Histor: cyclic vomiting syndrome Past Surgical History: Cholecystectomy Alcohol Use: None Drug Use: Marijuana Adult General Chief Complaint Chief Complaint: ABDOMINAL PAIN HPI HPI Patient is a 22 year old male with history of cyclic vomiting syndrome and anxiety presents with acute onset abdominal pain with nausea vomiting and diarrhea hours prior to ED arrival. Patient states she, last vomiting and diarrhea with her cyclic vomiting syndrome episodes. patient denies bilious or bloody vomit. Diarrhea is watery. Patient denies fevers chills, sweats, chest pain shortness of breath flank pain. Patient takes amitriptyline daily, but does not currently have a PCP or GI specialist due to lack of insurance. Patient was diagnosed with cyclic vomiting syndrome at the age of 10. Her last menstrual period was 10 days ago and she has an IUD in place. Review of Systems Review of Systems Review symptoms as per history of present illness. All other review symptoms are negative. Current Medications Current Medications Current Medications Medications (Trade) Dose Ordered Sig/Arnaldo Start Time Stop Time Status Last Admin Dose Admin Famotidine (Pepcid) 20 mg 1X ONCE 05/15/17 03:30 05/15/17 03:31 UNV Haloperidol Lactate (Haldol) 5 mg 1X ONCE 05/15/17 03:30 05/15/17 03:31 UNV Sodium Chloride 1,000 ml @ 1,000 mls/hr 1X ONCE 05/15/17 03:30 05/15/17 04:29 UNV Allergies Allergies Allergies Coded Allergies Type Severity Reaction Last Updated Verified coconut Allergy Severe Anaphylaxis 01/22/17 Yes Physical Exam Physical Exam Constitutional: Well developed, well nourished,inches, rocking back and forthe. [] HENT: Normocephalic, atraumatic, bilateral external ears normal, oropharynx moist, no oral exudates, nose normal. [] Eyes: PERRLA, EOMI, conjunctiva normal, no discharge. [] Neck: Normal range of motion, no tenderness, supple, no stridor. [] Cardiovascular:Heart rate regular rhythm, no murmur [] Lungs & Thorax: Bilateral breath sounds clear to auscultation [] Abdomen: Bowel sounds normal, soft, mid abdominal pain, tenderness, no rebound rigidity or guarding.. [] Skin: Warm, dry, no erythema, no rash. [] Back: No tenderness, no CVA tenderness. [] Extremities: No tenderness, no cyanosis, no clubbing, ROM intact, no edema. [] Neurologic: Alert and oriented X 3, normal motor function, normal sensory function, no focal deficits noted. [] EKG EKG [] Radiology/Procedures Radiology/Procedures [] Course & Med Decision Making Course & Med Decision Making Pertinent Labs and Imaging studies reviewed. (See chart for details) [Patient onset of abdominal pain nausea vomiting and diarrhea consistent with previous episodes of cyclic vomiting syndrome with anxiety component. IV fluids , antiemetics given with symptomtic improvement] Dragon Disclaimer Dragon Disclaimer This electronic medical record was generated, in whole or in part, using a voice recognition dictation system. JENNA DEVRIES DO May 15, 2017 03:34
[2017-05-15] MEDS ORDERED: HALOPERIDOL LACTATE 5 MG/ML VIAL. IVP ONE ×2 (03:45→04:30)
[2017-05-15] MEDS ORDERED: FAMOTIDINE 20 MG/2 ML VIAL IVP ONE (03:45)
[2017-05-15 03:49] LABS: BILIRUBIN,URINE NEGATIVE (NEG); GLUCOSE,URINE NEGATIVE (NEG); NITRITE,URINE NEGATIVE (NEG); PH,URINE 7.5; PROTEIN,URINE 30 mg/dL (NEG-TRACE); UROBILINOGEN,URINE 0.2 mg/dL (0.2 mg/dL)
[2017-05-15 03:54] LABS: BACTERIA,URINE FEW /HPF (0-FEW); RBC,URINE OCC /HPF (0-2); SQUAMOUS EPITHELIAL CELL,UR MOD /LPF
[2017-05-15 03:56] LABS: BASO # 0.1 x10^3/uL (0.0-0.2); BASO % 0 % (0-3); EOS % 0 % (0-3); HEMATOCRIT 44.9 % (36.0-47.0); HEMOGLOBIN 15.5 g/dL (12.0-15.5); LYMPH # 2.2 x10^3/uL (1.0-4.8); LYMPH % 15 % (24-48); MEAN CORPUSCULAR HEMOGLOBIN 30 pg (25-35); MEAN CORPUSCULAR HGB CONC 34 g/dL (31-37); MEAN CORPUSCULAR VOLUME 88 fL (79-100); MONO % 5 % (0-9); NEUT % 79 % (31-73); PLATELET COUNT 196 x10^3/uL (140-400); RED BLOOD COUNT 5.09 x10^6/uL (3.50-5.40); RED CELL DISTRIBUTION WIDTH 13.3 % (11.5-14.5); WHITE BLOOD COUNT 14.5 x10^3/uL (4.0-11.0)
[2017-05-15] MEDS ORDERED: KETOROLAC TROMETHAMINE 30 MG/ML INJ. IV ONE (04:30)
[2017-05-15 04:37] LABS: CREATININE 0.7 mg/dL (0.6-1.0); GFR 102.8; POTASSIUM 3.5 mmol/L (3.5-5.1)
[2017-05-15 04:42] LABS: ALBUMIN 4.8 g/dL (3.4-5.0); ALBUMIN/GLOBULIN RATIO 1.3 (1.0-1.7); TOTAL BILIRUBIN 0.4 mg/dL (0.2-1.0); TOTAL PROTEIN 8.6 g/dL (6.4-8.2)
[2017-05-15 04:48] LABS: NEG OBC SER NEG; POS OBC SER POS
[2017-05-15 05:30] VITALS: BP 152/90
== END 2017-05-15 05:40 | disposition home or self-care (01) ==
LOC: ER 03:10
DX: G43.A0 Cyclical vomiting, in migraine, not intractable (principal); F41.9 Anxiety disorder, unspecified; F12.10 Cannabis abuse, uncomplicated; Z90.49 Acquired absence of other specified parts of digestive tract
CPT/HCPCS: 36415; 80053; 81001; 81025; 83690; 84703; 85027; 96361; 96374; 96375; 96376; 99284; J1630; J1885; J7030; S0028

== ENCOUNTER 2017-06-08 07:37 | Observation (INO) | payer SELFPAY ==
[~2017-06-08] VITALS: Ht 162.6 cm; Wt 63.5 kg
[~2017-06-08 07:37] MED LIST changes: +PROC5TAB14 PO
[2017-06-08] MEDS ORDERED: FAMOTIDINE 20 MG/2 ML VIAL IVP ONE (07:45)
[2017-06-08] MEDS ORDERED: HALOPERIDOL LACTATE 5 MG/ML VIAL. IVP ONE (07:45)
[2017-06-08] MEDS ORDERED: ONDANSETRON PF 4 MG/2 ML VIAL. IV ONE (07:45)
--- NOTE | 2017-06-08 07:50 | PHYS DOC ---
Past Medical History Past Medical History: Anxiety, Other Additional Past Medical Histor: cyclic vomiting syndrome Past Surgical History: Cholecystectomy Alcohol Use: None Drug Use: Marijuana Adult General Chief Complaint Chief Complaint: NAUSEA/VOMITING/DIARRHA HPI HPI Patient is a 22 year old female who was just discharged from this facility 2 days ago returns with abdominal pain and nausea and vomiting. She states she is having mid upper abdominal pain and discomfort. Patient state she was sent home with zofran she did take this medication at 0100 this morning with no relief. She states she has vomited so many times she lost count. She denies blood in the emesis. She denies fever, chill, or diarrhea. States her last BM was 2 days ago. Patient states she has a history of cyclic vomiting syndrome. She does have a history of smoking marijuana. Review of Systems Review of Systems Constitutional: Denies fever or chills [] Eyes: Denies change in visual acuity, redness, or eye pain [] HENT: Denies nasal congestion or sore throat [] Respiratory: Denies cough or shortness of breath [] Cardiovascular: No additional information not addressed in HPI [] GI: abdominal pain, nausea, vomiting, denies bloody stools or diarrhea [] : Denies dysuria or hematuria [] Musculoskeletal: Denies back pain or joint pain [] Integument: Denies rash or skin lesions [] Neurologic: Denies headache, focal weakness or sensory changes [] Endocrine: Denies polyuria or polydipsia [] Current Medications Current Medications Current Medications Medications (Trade) Dose Ordered Sig/Arnaldo Start Time Stop Time Status Last Admin Dose Admin Famotidine (Pepcid) 20 mg 1X ONCE 06/08/17 07:45 06/08/17 07:48 DC 06/08/17 07:57 20 MG Fentanyl Citrate (Fentanyl 2ml Vial) 50 mcg 1X ONCE 06/08/17 08:30 06/08/17 08:32 DC 06/08/17 09:04 50 MCG Haloperidol Lactate (Haldol) 5 mg 1X ONCE 06/08/17 07:45 06/08/17 07:48 DC 06/08/17 07:57 5 MG Info (Do NOT chart on this entry -- for MONITORING) 1 each PRN DAILY PRN 06/08/17 08:45 06/10/17 08:44 Iohexol (Omnipaque 300 Mg/ml) 75 ml 1X ONCE 06/08/17 08:45 06/08/17 08:46 DC 06/08/17 08:42 75 ML Ondansetron HCl (Zofran) 4 mg 1X ONCE 06/08/17 07:45 06/08/17 07:48 DC 06/08/17 07:56 4 MG Allergies Allergies Allergies Coded Allergies Type Severity Reaction Last Updated Verified coconut Allergy Severe Anaphylaxis 01/22/17 Yes Physical Exam Physical Exam Constitutional: Well developed, well nourished, no acute distress, non-toxic appearance. [] HENT: Normocephalic, atraumatic, bilateral external ears normal, oropharynx moist, no oral exudates, nose normal. [] Eyes: PERRLA, EOMI, conjunctiva normal, no discharge. [] Neck: Normal range of motion, no tenderness, supple, no stridor. [] Cardiovascular:Heart rate regular rhythm, no murmur [] Lungs & Thorax: Bilateral breath sounds clear to auscultation [] Abdomen: Bowel sounds hypoactive, soft, mid upper abdominal tenderness, no masses, no pulsatile masses, no rebound tenderness noted, no guarding noted. [] Skin: Warm, dry, no erythema, no rash. [] Back: No tenderness Extremities: No tenderness, no cyanosis, no clubbing, ROM intact, no edema. [] Neurologic: Alert and oriented X 3, normal motor function, normal sensory function, no focal deficits noted. [] Psychologic: Affect normal, judgement normal, mood normal. [] Current Patient Data Vital Signs Vital Signs Date Time Temp Pulse Resp B/P (MAP) Pulse Ox O2 Delivery O2 Flow Rate FiO2 06/08/17 09:30 78 18 94/53 (67) 98 Room Air 06/08/17 07:37 97.8 97.8 Lab Values Laboratory Tests Test 06/08/17 07:02 06/08/17 07:43 06/08/17 07:50 POC Urine HCG, Qualitative Hcg negative (Negative) White Blood Count 8.3 x10^3/uL (4.0-11.0) Red Blood Count 4.38 x10^6/uL (3.50-5.40) Hemoglobin 13.4 g/dL (12.0-15.5) Hematocrit 37.5 % (36.0-47.0) Mean Corpuscular Volume 86 fL (79-100) Mean Corpuscular Hemoglobin 31 pg (25-35) Mean Corpuscular Hemoglobin Concent 36 g/dL (31-37) Red Cell Distribution Width 12.8 % (11.5-14.5) Platelet Count 177 x10^3/uL (140-400) Neutrophils (%) (Auto) 68 % (31-73) Lymphocytes (%) (Auto) 24 % (24-48) Monocytes (%) (Auto) 7 % (0-9) Eosinophils (%) (Auto) 1 % (0-3) Basophils (%) (Auto) 0 % (0-3) Neutrophils # (Auto) 5.7 x10^3uL (1.8-7.7) Lymphocytes # (Auto) 2.0 x10^3/uL (1.0-4.8) Monocytes # (Auto) 0.6 x10^3/uL (0.0-1.1) Eosinophils # (Auto) 0.1 x10^3/uL (0.0-0.7) Basophils # (Auto) 0.0 x10^3/uL (0.0-0.2) Sodium Level 139 mmol/L (136-145) Potassium Level 3.2 mmol/L (3.5-5.1) L Chloride Level 100 mmol/L (98-107) Carbon Dioxide Level 25 mmol/L (21-32) Anion Gap 14 (6-14) Blood Urea Nitrogen 10 mg/dL (7-20) Creatinine 0.8 mg/dL (0.6-1.0) Estimated GFR (Cockcroft-Gault) 88.1 BUN/Creatinine Ratio 13 (6-20) Glucose Level 132 mg/dL (70-99) H Calcium Level 8.9 mg/dL (8.5-10.1) Total Bilirubin 0.8 mg/dL (0.2-1.0) Aspartate Amino Transferase (AST) 13 U/L (15-37) L Alanine Aminotransferase (ALT) 16 U/L (14-59) Alkaline Phosphatase 60 U/L (46-116) Total Protein 7.0 g/dL (6.4-8.2) Albumin 3.8 g/dL (3.4-5.0) Albumin/Globulin Ratio 1.2 (1.0-1.7) Urine Collection Type Void Urine Color Yellow Urine Clarity Turbid Urine pH 7.0 Urine Specific [place] 1.025 Urine Protein Negative mg/dL (NEG-TRACE) Urine Glucose (UA) Negative mg/dL (NEG) Urine Ketones (Stick) Negative mg/dL (NEG) Urine Blood Negative (NEG) Urine Nitrite Negative (NEG) Urine Bilirubin Negative (NEG) Urine Urobilinogen Dipstick 1.0 mg/dL (0.2 mg/dL) Urine Leukocyte Esterase Small (NEG) Urine RBC 0 /HPF (0-2) Urine WBC 1-4 /HPF (0-4) Urine Squamous Epithelial Cells Many /LPF Urine Bacteria Few /HPF (0-FEW) Urine Mucus Marked /LPF Urine Opiates Screen Neg (NEG) Urine Methadone Screen Neg (NEG) Urine Barbiturates Neg (NEG) Urine Phencyclidine Screen Neg (NEG) Urine Amphetamine/Methamphetamine Neg (NEG) Urine Benzodiazepines Screen Neg (NEG) Urine Cocaine Screen Neg (NEG) Urine Cannabinoids Screen Pos (NEG) Urine Ethyl Alcohol Neg (NEG) Laboratory Tests 06/08/17 07:43 Laboratory Tests 06/08/17 07:43 EKG EKG [] Radiology/Procedures Radiology/Procedures [] Course & Med Decision Making Course & Med Decision Making Pertinent Labs and Imaging studies reviewed. (See chart for details) 0830 Patient with slightly low K+ at 3.2, UA positive for leukocyte estrace. Patient was provided with lab results she stil c/o abdominal pain. CT scan ordered, fentanyl ordered for pain. 0945 patient continues to have abdominal pain [address] Daniels in regards to patient being placed into the hospital. She agrees with admission at this time. [] Dragon Disclaimer Dragon Disclaimer This electronic medical record was generated, in whole or in part, using a voice recognition dictation system. Departure Departure Impression: Primary Impression: Abdominal pain Disposition: ADMITTED INPATIENT Admitting Physician: Tammy Daniels Condition: STABLE Referrals: NO PCP (PCP) MARIO WRIGHT [employer] OPERATOR Jun 08, 2017 07:50
[2017-06-08 07:52] LABS: BASO % 0 % (0-3); EOS % 1 % (0-3); HEMATOCRIT 37.5 % (36.0-47.0); HEMOGLOBIN 13.4 g/dL (12.0-15.5); LYMPH % 24 % (24-48); MEAN CORPUSCULAR HEMOGLOBIN 31 pg (25-35); MEAN CORPUSCULAR HGB CONC 36 g/dL (31-37); MEAN CORPUSCULAR VOLUME 86 fL (79-100); MONO % 7 % (0-9); NEUT % 68 % (31-73); PLATELET COUNT 177 x10^3/uL (140-400); RED BLOOD COUNT 4.38 x10^6/uL (3.50-5.40); RED CELL DISTRIBUTION WIDTH 12.8 % (11.5-14.5); WHITE BLOOD COUNT 8.3 x10^3/uL (4.0-11.0)
[2017-06-08 08:07] LABS: CALCIUM 8.9 mg/dL (8.5-10.1); CREATININE 0.8 mg/dL (0.6-1.0); GFR 88.1; POTASSIUM 3.2 mmol/L (3.5-5.1)
[2017-06-08 08:09] LABS: BILIRUBIN,URINE NEGATIVE (NEG); GLUCOSE,URINE NEGATIVE (NEG); NITRITE,URINE NEGATIVE (NEG); PROTEIN,URINE NEGATIVE (NEG-TRACE)
[2017-06-08 08:12] LABS: ALBUMIN 3.8 g/dL (3.4-5.0); ALBUMIN/GLOBULIN RATIO 1.2 (1.0-1.7); TOTAL BILIRUBIN 0.8 mg/dL (0.2-1.0)
[2017-06-08 08:15] LABS: BARBITURATES NEG (NEG); BENZODIAZEPINES NEG (NEG); CANNABINOIDS POS (NEG); COCAINE NEG (NEG); METHADONE NEG (NEG); OPIATES NEG (NEG); PHENCYCLIDINE NEG (NEG)
[2017-06-08 08:24] LABS: BACTERIA,URINE FEW /HPF (0-FEW); RBC,URINE 0 /HPF (0-2); SQUAMOUS EPITHELIAL CELL,UR MANY /LPF
[2017-06-08] MEDS ORDERED: fentaNYL PF VIAL 100 MCG/2 ML VIAL IV ONE (08:30)
[2017-06-08] MEDS ORDERED: IOHEXOL 300 MG/ML 75 ML VIAL IV ONE (08:45)
[2017-06-08] MEDS ORDERED: CONTRAST GIVEN MC PRN (08:45)
--- NOTE | 2017-06-08 09:18 | RAD ---
CT abdomen/pelvis with IV contrast Indication: 22-year-old female with abdominal pain, nausea, vomiting and diarrhea. Technique: CT abdomen/pelvis with 75 mL of IV Omnipaque 300 with multi planar reformats. Comparison: Previous study from 05/09/2017 Findings: Heart is normal in size. No pericardial or pleural effusion. Clear lung bases. Liver is normal in morphology without focal lesion. Spleen is not enlarged and show no focal lesion. Status post cholecystectomy. Pancreas is normal in morphology without peripancreatic inflammatory changes. Adrenal glands show no nodularity. No hydronephrosis or suspicious renal lesion. No bowel obstruction. Subtle enhancement of the duodenal mucosa noted with questionable mild duodenal wall thickening. No pathologically enlarged abdominal or pelvic lymph nodes. Uterus is anteverted with IUD in place. Bilateral ovaries are visualized. No free pelvic fluid. Bladder show no focal lesion. Straightening of the visualized spine. No suspicious bony lesion. Impression: 1. No bowel obstruction. 2. Mild mucosal enhancement of the duodenum with questionable wall thickening may represent duodenitis. Clinically correlate. PQRS Compliance Statement: One or more of the following individualized dose reduction techniques were utilized for this examination: 1. Automated exposure control 2. Adjustment of the mA and/or kV according to patient size 3. Use of iterative reconstruction technique
[2017-06-08] MEDS ORDERED: IV NORMAL SALINE 1000ML BAG 1,000 ML IV SCH (10:39)
[2017-06-08] MEDS ORDERED: FAMOTIDINE 20 MG TABLET. PO SCH (10:44)
[2017-06-08] MEDS ORDERED: ONDANSETRON PF 4 MG/2 ML VIAL. IV PRN ×2 (10:45→13:45)
[2017-06-08] MEDS: fentaNYL PF VIAL 100 MCG/2 ML VIAL IV PRN ×2 (11:00→14:24)
[2017-06-08 12:46] VITALS: BP 126/81
[2017-06-08] MEDS ORDERED: POTASSIUM CHLORIDE 20MEQ 50 ML IV ONE (13:45)
[2017-06-08] MEDS ORDERED: ACETAMINOPHEN 325 MG TABLET. PO PRN (13:45)
[2017-06-08] MEDS ORDERED: hydrALAZINE 20 MG/ML VIAL. IVP PRN (13:45)
[2017-06-08] MEDS ORDERED: DOCUSATE SODIUM 100 MG CAPSULE. PO PRN (13:45)
[2017-06-08] MEDS ORDERED: MORPHINE SULFATE 4 MG/ML DISP.SYRIN. IV PRN (13:45)
[2017-06-08] MEDS ORDERED: traMADol 50 MG TABLET PO PRN (13:45)
--- NOTE | 2017-06-08 13:46 | PDOC1 ---
History and Physical Date of Admission Date of Admission 06/08/17 Identification/Chief Complaint Chief Complaint n/v, abd pain Problems: Source Source: Chart review, Patient History of Present Illness History of Present Illness HPI HPI Patient is a 22 year old female who was just discharged from this facility 2 days ago for same reason came back today for N/V, abd pain today. Pt is very uncompliant ,still no pcp, comes to hosp every month for same reason. She said takes marijuana rarely, but always + in the drug screen. She was dced 2 days ago, then N/V and abd pain started this 4am, said mild bloody emesis. Abd pain located at umbilical area, no radiation, 05/27. BM normal ,once yesterday. Patient state she was sent home with zofran she did take this medication at 0100 this morning with no relief. She denies fever, chill, or diarrhea. Patient states she has a history of cyclic vomiting syndrome. Past Medical History Past Medical History cyclic vomiting syndrome Psych: Anxiety, Panic Endocrine: Other Past Surgical History Past Surgical History: Cholecystectomy Family History Family History: Diabetes, Heart Disease, Other Family History: Grandparents Social History Smoke: No ALCOHOL: none Drugs: Marijuana Current Problem List Problem List Problems Medical Problems: (1) Abdominal pain Status: Acute Current Medications Current Medications Current Medications Medications (Trade) Dose Ordered Sig/Arnaldo Start Time Stop Time Status Last Admin Dose Admin Famotidine (Pepcid) 20 mg BID 06/08/17 10:44 Fentanyl Citrate (Fentanyl 2ml Vial) 50 mcg PRN Q2HR PRN 06/08/17 10:45 06/09/17 10:44 06/08/17 11:00 50 MCG Haloperidol Lactate (Haldol) 5 mg 1X ONCE 06/08/17 07:45 06/08/17 07:48 DC 06/08/17 07:57 5 MG Info (Do NOT chart on this entry -- for MONITORING) 1 each PRN DAILY PRN 06/08/17 08:45 06/10/17 08:44 Iohexol (Omnipaque 300 Mg/ml) 75 ml 1X ONCE 06/08/17 08:45 06/08/17 08:46 DC 06/08/17 08:42 75 ML Ondansetron HCl (Zofran) 4 mg PRN Q8HRS PRN 06/08/17 10:45 06/09/17 10:44 06/08/17 10:58 4 MG Sodium Chloride 1,000 ml @ 125 mls/hr Q8H 06/08/17 10:39 06/09/17 10:38 Allergies Allergies Allergies Coded Allergies Type Severity Reaction Last Updated Verified coconut Allergy Severe Anaphylaxis 01/22/17 Yes ROS Review of System CONSTITUTIONAL: No fever or chills EYES: No recent changes SKIN: No rash or itching CARDIOVASCULAR: No chest pain, syncope, palpitations, or edema RESPIRATORY: No SOB or cough GASTROINTESTINAL: + nausea, vomiting or abdominal pain NEUROLOGICAL: No headaches or weakness ENDOCRINE: No cold or heat intolerance GENITOURINARY: No urgency or frequency of urination MUSCULOSKELETAL: No back pain or joint pain LYMPHATICS: No enlarged lymph nodes PSYCHIATRIC: No anxiety or depression Physical Exam Physical Exam GEN.: Alert and oriented. in pain. HEENT: Head is normocephalic, atraumatic NECK: Supple. LUNGS: Clear to auscultation. HEART: RRR, S1, S2 present. Peripheral pulses intact ABDOMEN: Soft, Positive bowel sounds. diffused abd moderate tenderness, no guarding or rebound. EXTREMITIES: Without any cyanosis. NEUROLOGIC: Normal speech, normal tone PSYCHIATRIC: Normal affect, normal mood. SKIN: No ulcerations Vitals Vitals Vital Signs Date Time Temp Pulse Resp B/P (MAP) Pulse Ox O2 Delivery O2 Flow Rate FiO2 06/08/17 13:00 Room Air 06/08/17 12:20 102 18 117/73 (88) 97 06/08/17 07:37 97.8 97.8 Labs Labs Laboratory Tests Test 06/08/17 07:02 06/08/17 07:43 06/08/17 07:50 Bedside Urine HCG, Qualitative Hcg negative (Negative) White Blood Count 8.3 x10^3/uL (4.0-11.0) Red Blood Count 4.38 x10^6/uL (3.50-5.40) Hemoglobin 13.4 g/dL (12.0-15.5) Hematocrit 37.5 % (36.0-47.0) Mean Corpuscular Volume 86 fL (79-100) Mean Corpuscular Hemoglobin 31 pg (25-35) Mean Corpuscular Hemoglobin Concent 36 g/dL (31-37) Red Cell Distribution Width 12.8 % (11.5-14.5) Platelet Count 177 x10^3/uL (140-400) Neutrophils (%) (Auto) 68 % (31-73) Lymphocytes (%) (Auto) 24 % (24-48) Monocytes (%) (Auto) 7 % (0-9) Eosinophils (%) (Auto) 1 % (0-3) Basophils (%) (Auto) 0 % (0-3) Neutrophils # (Auto) 5.7 x10^3uL (1.8-7.7) Lymphocytes # (Auto) 2.0 x10^3/uL (1.0-4.8) Monocytes # (Auto) 0.6 x10^3/uL (0.0-1.1) Eosinophils # (Auto) 0.1 x10^3/uL (0.0-0.7) Basophils # (Auto) 0.0 x10^3/uL (0.0-0.2) Sodium Level 139 mmol/L (136-145) Potassium Level 3.2 mmol/L (3.5-5.1) Chloride Level 100 mmol/L (98-107) Carbon Dioxide Level 25 mmol/L (21-32) Anion Gap 14 (6-14) Blood Urea Nitrogen 10 mg/dL (7-20) Creatinine 0.8 mg/dL (0.6-1.0) Estimated GFR (Cockcroft-Gault) 88.1 BUN/Creatinine Ratio 13 (6-20) Glucose Level 132 mg/dL (70-99) Calcium Level 8.9 mg/dL (8.5-10.1) Total Bilirubin 0.8 mg/dL (0.2-1.0) Aspartate Amino Transf (AST/SGOT) 13 U/L (15-37) Alanine Aminotransferase (ALT/SGPT) 16 U/L (14-59) Alkaline Phosphatase 60 U/L (46-116) Total Protein 7.0 g/dL (6.4-8.2) Albumin 3.8 g/dL (3.4-5.0) Albumin/Globulin Ratio 1.2 (1.0-1.7) Urine Collection Type Void Urine Color Yellow Urine Clarity Turbid Urine pH 7.0 Urine Specific [place] 1.025 Urine Protein Negative mg/dL (NEG-TRACE) Urine Glucose (UA) Negative mg/dL (NEG) Urine Ketones (Stick) Negative mg/dL (NEG) Urine Blood Negative (NEG) Urine Nitrite Negative (NEG) Urine Bilirubin Negative (NEG) Urine Urobilinogen Dipstick 1.0 mg/dL (0.2 mg/dL) Urine Leukocyte Esterase Small (NEG) Urine RBC 0 /HPF (0-2) Urine WBC 1-4 /HPF (0-4) Urine Squamous Epithelial Cells Many /LPF Urine Bacteria Few /HPF (0-FEW) Urine Mucus Marked /LPF Urine Opiates Screen Neg (NEG) Urine Methadone Screen Neg (NEG) Urine Barbiturates Neg (NEG) Urine Phencyclidine Screen Neg (NEG) Urine Amphetamine/Methamphetamine Neg (NEG) Urine Benzodiazepines Screen Neg (NEG) Urine Cocaine Screen Neg (NEG) Urine Cannabinoids Screen Pos (NEG) Urine Ethyl Alcohol Neg (NEG) Laboratory Tests Test 06/08/17 07:02 06/08/17 07:43 06/08/17 07:50 Bedside Urine HCG, Qualitative Hcg negative (Negative) White Blood Count 8.3 x10^3/uL (4.0-11.0) Red Blood Count 4.38 x10^6/uL (3.50-5.40) Hemoglobin 13.4 g/dL (12.0-15.5) Hematocrit 37.5 % (36.0-47.0) Mean Corpuscular Volume 86 fL (79-100) Mean Corpuscular Hemoglobin 31 pg (25-35) Mean Corpuscular Hemoglobin Concent 36 g/dL (31-37) Red Cell Distribution Width 12.8 % (11.5-14.5) Platelet Count 177 x10^3/uL (140-400) Neutrophils (%) (Auto) 68 % (31-73) Lymphocytes (%) (Auto) 24 % (24-48) Monocytes (%) (Auto) 7 % (0-9) Eosinophils (%) (Auto) 1 % (0-3) Basophils (%) (Auto) 0 % (0-3) Neutrophils # (Auto) 5.7 x10^3uL (1.8-7.7) Lymphocytes # (Auto) 2.0 x10^3/uL (1.0-4.8) Monocytes # (Auto) 0.6 x10^3/uL (0.0-1.1) Eosinophils # (Auto) 0.1 x10^3/uL (0.0-0.7) Basophils # (Auto) 0.0 x10^3/uL (0.0-0.2) Sodium Level 139 mmol/L (136-145) Potassium Level 3.2 mmol/L (3.5-5.1) Chloride Level 100 mmol/L (98-107) Carbon Dioxide Level 25 mmol/L (21-32) Anion Gap 14 (6-14) Blood Urea Nitrogen 10 mg/dL (7-20) Creatinine 0.8 mg/dL (0.6-1.0) Estimated GFR (Cockcroft-Gault) 88.1 BUN/Creatinine Ratio 13 (6-20) Glucose Level 132 mg/dL (70-99) Calcium Level 8.9 mg/dL (8.5-10.1) Total Bilirubin 0.8 mg/dL (0.2-1.0) Aspartate Amino Transf (AST/SGOT) 13 U/L (15-37) Alanine Aminotransferase (ALT/SGPT) 16 U/L (14-59) Alkaline Phosphatase 60 U/L (46-116) Total Protein 7.0 g/dL (6.4-8.2) Albumin 3.8 g/dL (3.4-5.0) Albumin/Globulin Ratio 1.2 (1.0-1.7) Urine Collection Type Void Urine Color Yellow Urine Clarity Turbid Urine pH 7.0 Urine Specific [place] 1.025 Urine Protein Negative mg/dL (NEG-TRACE) Urine Glucose (UA) Negative mg/dL (NEG) Urine Ketones (Stick) Negative mg/dL (NEG) Urine Blood Negative (NEG) Urine Nitrite Negative (NEG) Urine Bilirubin Negative (NEG) Urine Urobilinogen Dipstick 1.0 mg/dL (0.2 mg/dL) Urine Leukocyte Esterase Small (NEG) Urine RBC 0 /HPF (0-2) Urine WBC 1-4 /HPF (0-4) Urine Squamous Epithelial Cells Many /LPF Urine Bacteria Few /HPF (0-FEW) Urine Mucus Marked /LPF Urine Opiates Screen Neg (NEG) Urine Methadone Screen Neg (NEG) Urine Barbiturates Neg (NEG) Urine Phencyclidine Screen Neg (NEG) Urine Amphetamine/Methamphetamine Neg (NEG) Urine Benzodiazepines Screen Neg (NEG) Urine Cocaine Screen Neg (NEG) Urine Cannabinoids Screen Pos (NEG) Urine Ethyl Alcohol Neg (NEG) VTE Prophylaxis Ordered VTE Prophylaxis Devices: Yes VTE Pharmacological Prophylaxi: Yes Assessment/Plan Assessment/Plan abd , N/V, with cyclic vomiting syndrome and marijuana abuse anxiety hypokalemia with vomiting uncompliance plan: cont amtryptyline pain control npo ivf replete K dvt, gi ppx hope advance diet soon labs tmr IVAN TILLEY MD Jun 08, 2017 13:46
[2017-06-08] MEDS: POTASSIUM CHLORIDE 10MEQ 100 ML IV SCH ×2 (14:24→15:41)
[2017-06-08 15:00] VITALS: BP 112/60
[2017-06-08] MEDS ORDERED: ENOXAPARIN 40 MG/0.4 ML SYRINGE. SQ SCH (16:00)
[2017-06-08] MEDS ORDERED: PROCHLORPERAZINE 5 MG TABLET. PO SCH (18:00)
[2017-06-08] MEDS ORDERED: AMITRIPTYLINE HCL 50 MG TABLET PO SCH (21:00)
== END 2017-06-08 17:00 | disposition left against medical advice (07) ==
LOC: ER 07:37 → 4 NORTH 09:47
PROVIDERS: ADMIT Internal Medicine; ATTEND Internal Medicine
DX: G43.A0 Cyclical vomiting, in migraine, not intractable (principal); R10.33 Periumbilical pain; R11.0 Nausea; F41.9 Anxiety disorder, unspecified; E87.6 Hypokalemia; F12.10 Cannabis abuse, uncomplicated; Z91.14 Patient's other noncompliance with medication regimen; Z83.3 Family history of diabetes mellitus
CPT/HCPCS: 36415; 74177; 80053; 80307; 81001; 81025; 85025; 96361; 96365; 96366; 96375; 96376; 99285; G0378; J1630; J2405; J3010; J3480; J7030; Q9967; S0028; 87086; G0379; G0479

== ENCOUNTER 2017-06-10 07:31 | Observation (INO) | payer SELFPAY ==
[~2017-06-10] VITALS: Ht 162.6 cm; Wt 62.1 kg
--- NOTE | 2017-06-10 07:53 | PHYS DOC ---
Past Medical History Past Medical History: Anxiety, Other Additional Past Medical Histor: cyclic vomiting syndrome Past Surgical History: Cholecystectomy Alcohol Use: None Drug Use: Marijuana Adult General Chief Complaint Chief Complaint: ABDOMINAL PAIN HPI HPI Patient is a 22 year old female presents to the emergency department stating that she has a history of cyclic vomiting. Patient states she has increased abdominal pain and discomfort with nausea and vomiting in which she's vomited some any times within the last 24 hour she is unable to count. Patient states that she has not had anything to drink since last night. Patient states that she had left AGAINST MEDICAL ADVICE from our facility approximately 2 days ago. Patient states that she had a court appearance that she needed to be out and did not want to have a warrant out for her arrest. Patient states that she has not consumed any marijuana for the last 3 weeks. However 2 days ago she did test positive for marijuana in her urine. Patient has been noted to be noncompliant. Patient continues to state that she has not had a bowel movement for the last 2 days. Review of Systems Review of Systems Constitutional: Denies fever or chills [] Eyes: Denies change in visual acuity, redness, or eye pain [] HENT: Denies nasal congestion or sore throat [] Respiratory: Denies cough or shortness of breath [] Cardiovascular: No additional information not addressed in HPI [] GI: Abdominal pain with nausea vomiting, constipation : Denies dysuria or hematuria [] Musculoskeletal: Denies back pain or joint pain [] Integument: Denies rash or skin lesions [] Neurologic: Denies headache, focal weakness or sensory changes [] Endocrine: Denies polyuria or polydipsia [] Current Medications Current Medications Current Medications Medications (Trade) Dose Ordered Sig/Arnaldo Start Time Stop Time Status Last Admin Dose Admin Dicyclomine HCl (Bentyl) 10 mg 1X ONCE 06/10/17 08:00 06/10/17 08:01 DC 06/10/17 08:03 10 MG Fentanyl Citrate (Fentanyl 2ml Vial) 50 mcg PRN Q2HR PRN 06/10/17 09:45 06/11/17 09:44 UNV Ondansetron HCl (Zofran) 4 mg PRN Q8HRS PRN 06/10/17 09:45 06/11/17 09:44 UNV Promethazine HCl (Phenergan Im) 25 mg 1X ONCE 06/10/17 08:00 06/10/17 08:01 DC 06/10/17 08:02 25 MG Sodium Chloride 1,000 ml @ 125 mls/hr Q8H 06/10/17 09:33 06/11/17 09:32 UNV Allergies Allergies Allergies Coded Allergies Type Severity Reaction Last Updated Verified coconut Allergy Severe Anaphylaxis 01/22/17 Yes Physical Exam Physical Exam Constitutional: Well developed, well nourished, no acute distress, non-toxic appearance. [] HENT: Normocephalic, atraumatic, bilateral external ears normal, oropharynx moist, no oral exudates, nose normal. [] Eyes: PERRLA, EOMI, conjunctiva normal, no discharge. [] Neck: Normal range of motion, no tenderness, supple, no stridor. [] Cardiovascular:Heart rate regular rhythm, no murmur [] Lungs & Thorax: Bilateral breath sounds clear to auscultation [] Abdomen: Bowel sounds hypoactive, soft, generalized tenderness, no masses, no pulsatile masses. No guarding no rebound tenderness noted. Skin: Warm, dry, no erythema, no rash. [] Back: No tenderness Extremities: No tenderness, no cyanosis, no clubbing, ROM intact, no edema. [] Neurologic: Alert and oriented X 3, normal motor function, normal sensory function, no focal deficits noted. [] Psychologic: Affect normal, judgement normal, mood normal. [] Current Patient Data Vital Signs Vital Signs Date Time Temp Pulse Resp B/P (MAP) Pulse Ox O2 Delivery O2 Flow Rate FiO2 06/10/17 09:00 81 14 124/58 (80) 96 Room Air 06/10/17 07:33 98.1 98.1 Lab Values Laboratory Tests Test 06/10/17 07:39 06/10/17 07:40 Urine Collection Type Unknown Urine Color Yellow Urine Clarity Cloudy Urine pH 8.5 Urine Specific [place] 1.020 Urine Protein Negative mg/dL (NEG-TRACE) Urine Glucose (UA) Negative mg/dL (NEG) Urine Ketones (Stick) Negative mg/dL (NEG) Urine Blood Negative (NEG) Urine Nitrite Negative (NEG) Urine Bilirubin Negative (NEG) Urine Urobilinogen Dipstick 1.0 mg/dL (0.2 mg/dL) Urine Leukocyte Esterase Moderate (NEG) Urine RBC Occ /HPF (0-2) Urine WBC 11-20 /HPF (0-4) Urine Squamous Epithelial Cells Many /LPF Urine Bacteria Moderate /HPF (0-FEW) Urine Opiates Screen Neg (NEG) Urine Methadone Screen Neg (NEG) Urine Barbiturates Neg (NEG) Urine Phencyclidine Screen Neg (NEG) Urine Amphetamine/Methamphetamine Neg (NEG) Urine Benzodiazepines Screen Neg (NEG) Urine Cocaine Screen Neg (NEG) Urine Cannabinoids Screen Pos (NEG) Urine Ethyl Alcohol Neg (NEG) White Blood Count 12.1 x10^3/uL (4.0-11.0) H Red Blood Count 4.62 x10^6/uL (3.50-5.40) Hemoglobin 14.0 g/dL (12.0-15.5) Hematocrit 41.1 % (36.0-47.0) Mean Corpuscular Volume 89 fL (79-100) Mean Corpuscular Hemoglobin 30 pg (25-35) Mean Corpuscular Hemoglobin Concent 34 g/dL (31-37) Red Cell Distribution Width 13.0 % (11.5-14.5) Platelet Count 210 x10^3/uL (140-400) Neutrophils (%) (Auto) 86 % (31-73) H Lymphocytes (%) (Auto) 10 % (24-48) L Monocytes (%) (Auto) 4 % (0-9) Eosinophils (%) (Auto) 0 % (0-3) Basophils (%) (Auto) 0 % (0-3) Neutrophils # (Auto) 10.5 x10^3uL (1.8-7.7) H Lymphocytes # (Auto) 1.2 x10^3/uL (1.0-4.8) Monocytes # (Auto) 0.5 x10^3/uL (0.0-1.1) Eosinophils # (Auto) 0.0 x10^3/uL (0.0-0.7) Basophils # (Auto) 0.0 x10^3/uL (0.0-0.2) Segmented Neutrophils % 83 % (35-66) H Band Neutrophils % 3 % (0-9) Lymphocytes % 9 % (24-48) L Monocytes % 5 % (0-10) Platelet Estimate Adequate (ADEQUATE) Sodium Level 138 mmol/L (136-145) Potassium Level 3.9 mmol/L (3.5-5.1) Chloride Level 100 mmol/L (98-107) Carbon Dioxide Level 27 mmol/L (21-32) Anion Gap 11 (6-14) Blood Urea Nitrogen 9 mg/dL (7-20) Creatinine 0.7 mg/dL (0.6-1.0) Estimated GFR (Cockcroft-Gault) 102.8 BUN/Creatinine Ratio 13 (6-20) Glucose Level 150 mg/dL (70-99) H Calcium Level 9.5 mg/dL (8.5-10.1) Total Bilirubin 0.4 mg/dL (0.2-1.0) Aspartate Amino Transferase (AST) 12 U/L (15-37) L Alanine Aminotransferase (ALT) 14 U/L (14-59) Alkaline Phosphatase 65 U/L (46-116) Total Protein 8.1 g/dL (6.4-8.2) Albumin 4.4 g/dL (3.4-5.0) Albumin/Globulin Ratio 1.2 (1.0-1.7) Laboratory Tests 06/10/17 07:40 Laboratory Tests 06/10/17 07:40 EKG EKG [] Radiology/Procedures Radiology/Procedures [][facility] [address] [place], [place] [id number] IMAGING REPORT Signed 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 PHYSICIAN: MARIO WRIGHT APRN REASON: abdominal pain no BM for 2 days PROCEDURE: ACUTE ABDOMEN SERIES Acute abdomen series Indication: Abdominal pain for one day, no bowel movement for 2 days Technique: An acute abdomen series x-rays Comparison: Previous CT abdomen/pelvis from 06/08/2017 Findings: Heart is normal in size. Lungs are clear. No free intraperitoneal air. No abnormally dilated bowel loops or air-fluid levels. Moderate amount of stool is seen within ascending, descending and sigmoid colon. Note made of IUD. Visualized bones are within normal limits. Impression: 1. No radiographic evidence of bowel obstruction. 2. Moderate stool within ascending, descending and sigmoid colon. DICTATED and SIGNED BY: TRISTIAN CHESTER DO DATE: 06/10/17 0810 CC: MARIO WRIGHT APRN; NO PCP ~ Course & Med Decision Making Course & Med Decision Making Pertinent Labs and Imaging studies reviewed. (See chart for details) Spoke with patient regards to marijuana causing cyclic vomiting, patient states , "that's what I have been told." Spoke with patient in regards to noncompliance. Also spoke with patient in regards to holding off on narcotic IM or IV medications at this time as this can increase constipation. However she will be provided with Bentyl, and Phenergan for her pain and nausea. She'll also be provided with IV fluids for hydration. 0935 patient's urinalysis was positive for urinary tract infection. Patient is still complaining of abdominal pain with vomiting. She states that she had a bowel movement in the bathroom. Radiology report for an acute abdominal series identified stool in the ascending descending sigmoid colon. Patient will be admitted into the hospital spoke with Dr. Luis in regards to patient being an observation status patient is aware of admission as an observation status. Dragon Disclaimer Dragon Disclaimer This electronic medical record was generated, in whole or in part, using a voice recognition dictation system. Departure Departure Impression: Primary Impression: Abdominal pain Additional Impression: UTI (urinary tract infection) Disposition: ADMITTED INPATIENT Admitting Physician: Violetta Luis Referrals: NO PCP (PCP) Problem Qualifiers MARIO WRIGHT APRN Jun 10, 2017 07:53
[2017-06-10 07:55] LABS: BASO % 0 % (0-3); EOS % 0 % (0-3); HEMATOCRIT 41.1 % (36.0-47.0); LYMPH # 1.2 x10^3/uL (1.0-4.8); LYMPH % 10 % (24-48); MEAN CORPUSCULAR HEMOGLOBIN 30 pg (25-35); MEAN CORPUSCULAR HGB CONC 34 g/dL (31-37); MEAN CORPUSCULAR VOLUME 89 fL (79-100); MONO % 4 % (0-9); NEUT % 86 % (31-73); PLATELET COUNT 210 x10^3/uL (140-400); RED BLOOD COUNT 4.62 x10^6/uL (3.50-5.40); WHITE BLOOD COUNT 12.1 x10^3/uL (4.0-11.0)
[2017-06-10 07:56] LABS: BILIRUBIN,URINE NEGATIVE (NEG); GLUCOSE,URINE NEGATIVE (NEG); NITRITE,URINE NEGATIVE (NEG); PH,URINE 8.5; PROTEIN,URINE NEGATIVE (NEG-TRACE)
[2017-06-10] MEDS ORDERED: DICYCLOMINE 20 MG/2 ML AMPUL. IM ONE (08:00)
[2017-06-10] MEDS ORDERED: PROMETHAZINE IM 25 MG/ML VIAL IM ONE (08:00)
[2017-06-10] MEDS ORDERED: IV NORMAL SALINE 1000ML BAG 1,000 ML IV ONE (08:00)
[2017-06-10 08:02] LABS: BARBITURATES NEG (NEG); BENZODIAZEPINES NEG (NEG); CANNABINOIDS POS (NEG); COCAINE NEG (NEG); METHADONE NEG (NEG); OPIATES NEG (NEG); PHENCYCLIDINE NEG (NEG)
[2017-06-10 08:06] LABS: CALCIUM 9.5 mg/dL (8.5-10.1); CREATININE 0.7 mg/dL (0.6-1.0); GFR 102.8; POTASSIUM 3.9 mmol/L (3.5-5.1)
[2017-06-10 08:14] LABS: BACTERIA,URINE MODERATE /HPF (0-FEW); RBC,URINE OCC /HPF (0-2); SQUAMOUS EPITHELIAL CELL,UR MANY /LPF
[2017-06-10 08:14] LABS: ALBUMIN 4.4 g/dL (3.4-5.0); ALBUMIN/GLOBULIN RATIO 1.2 (1.0-1.7); TOTAL BILIRUBIN 0.4 mg/dL (0.2-1.0); TOTAL PROTEIN 8.1 g/dL (6.4-8.2)
--- NOTE | 2017-06-10 08:15 | RAD ---
Acute abdomen series Indication: Abdominal pain for one day, no bowel movement for 2 days Technique: An acute abdomen series x-rays Comparison: Previous CT abdomen/pelvis from 06/08/2017 Findings: Heart is normal in size. Lungs are clear. No free intraperitoneal air. No abnormally dilated bowel loops or air-fluid levels. Moderate amount of stool is seen within ascending, descending and sigmoid colon. Note made of IUD. Visualized bones are within normal limits. Impression: 1. No radiographic evidence of bowel obstruction. 2. Moderate stool within ascending, descending and sigmoid colon.
[2017-06-10 09:18] LABS: PLT ESTIMATE ADEQUATE (ADEQUATE)
[2017-06-10] MEDS ORDERED: fentaNYL PF VIAL 100 MCG/2 ML VIAL IV PRN (09:45)
[2017-06-10] MEDS ORDERED: ONDANSETRON PF 4 MG/2 ML VIAL. IV PRN (09:45)
[2017-06-10] MEDS ORDERED: CIPROFLOXACIN 400MG PREMIX 200 ML IV ONE (10:00)
[2017-06-10] MEDS ORDERED: HYDROmorphone 2 MG/ML VIAL IVP PRN (10:30)
[2017-06-10] MEDS ORDERED: MORPHINE SULFATE 2 MG/ML DISP.SYRIN. IV PRN (10:30)
--- NOTE | 2017-06-10 10:36 | PDOC1 ---
History and Physical Date of Admission Date of Admission DATE: 06/10/17 TIME: 10:32 Identification/Chief Complaint Chief Complaint vomiting Problems: Source Source: Caregiver, Chart review, Patient History of Present Illness History of Present Illness 22 y.o female, known to us, was just here 2 days ago, left AMA [facility] she had a court order comes back in [facility] of visibly vomiting at ER, bucket at bedside, dry heaving. NO elyte abN, maybe slightly sinus tachy, KNown cyclic vomiter and morphine, dilaudid (and now asks for ativan) are the ones that help her Past Medical History Psych: Anxiety, Panic Endocrine: Other Past Surgical History Past Surgical History: Cholecystectomy Family History Family History: Diabetes, Heart Disease, Other Family History: Grandparents Social History Smoke: No ALCOHOL: none Drugs: Marijuana Current Problem List Problem List Problems Medical Problems: (1) Abdominal pain Status: Acute (2) UTI (urinary tract infection) Status: Acute Problems: Current Medications Current Medications Current Medications Sodium Chloride 1,000 ml @ 1,000 mls/hr 1X ONCE IV Last administered on 08:02; Start 06/10/17 at 08:00; Stop 06/10/17 at 08:59; Status DC Dicyclomine HCl (Bentyl) 10 mg 1X ONCE IM Last administered on 06/10/17 08:03 ; Start 06/10/17 at 08:00; Stop 06/10/17 at 08:01; Status DC Promethazine HCl (Phenergan Im) 25 mg 1X ONCE IM Last administered on 08:02; Start 06/10/17 at 08:00; Stop 06/10/17 at 08:01; Status DC Ondansetron HCl (Zofran) 4 mg PRN Q8HRS PRN IV NAUSEA/VOMITING Last administered on 06/10/17 10:16; Start 06/10/17 at 09:45; Stop 06/11/17 at 09:44 Fentanyl Citrate (Fentanyl 2ml Vial) 50 mcg PRN Q2HR PRN IV PAIN Last administered on 06/10/17 10:16; Start 06/10/17 at 09:45; Stop 06/11/17 at 09:44 Sodium Chloride 1,000 ml @ 125 mls/hr Q8H IV ; Start 06/10/17 at 09:33; Stop at 09:32 Active Scripts Active Prochlorperazine Maleate 10 Mg Tablet 1 Tab PO Q6HRS Amitriptyline Hcl 50 Mg Tablet 1 Tab PO QHS Allergies Allergies: Coded Allergies: coconut (Verified Allergy, Severe, Anaphylaxis, 01/22/17) rash, hives, throat sweeling ROS Review of System limited - currently vomiting at ER Physical Exam General: Alert, Oriented X3, No acute distress, Other (but clearly uncomfrotable and actively ) HEENT: PERRLA Lungs: Clear to auscultation, Normal air movement Heart: S1S2, RRR, no thrills, no rubs, no gallops, no murmurs Cardiovascular: S1, S2 Breasts: Normal, Rt breast nml w/o mass, Lt breast nml w/o mass, Nipples normal Abdomen: Soft Rectal Exam: not examined PELVIC: Nml ext genitalia Extremities: No clubbing, No cyanosis, No edema, Normal pulses, No tenderness/ swelling Skin: No rashes, No breakdown, No significant lesion Neuro: Normal gait, Normal speech, Strength at 5/5 X4 ext, Normal tone, Sensation intact, Cranial nerves 3-12 NL, Reflexes 2+ Psych/Mental Status: Mental status NL, Mood NL Vitals Vitals Vital Signs Date Time Temp Pulse Resp B/P (MAP) Pulse Ox O2 Delivery O2 Flow Rate FiO2 06/10/17 10:16 20 96 Room Air 06/10/17 09:00 81 124/58 (80) 06/10/17 07:33 98.1 98.1 Labs Labs Laboratory Tests Test 06/10/17 07:39 06/10/17 07:40 Urine Collection Type Unknown Urine Color Yellow Urine Clarity Cloudy Urine pH 8.5 Urine Specific [place] 1.020 Urine Protein Negative mg/dL (NEG-TRACE) Urine Glucose (UA) Negative mg/dL (NEG) Urine Ketones (Stick) Negative mg/dL (NEG) Urine Blood Negative (NEG) Urine Nitrite Negative (NEG) Urine Bilirubin Negative (NEG) Urine Urobilinogen Dipstick 1.0 mg/dL (0.2 mg/dL) Urine Leukocyte Esterase Moderate (NEG) Urine RBC Occ /HPF (0-2) Urine WBC 11-20 /HPF (0-4) Urine Squamous Epithelial Cells Many /LPF Urine Bacteria Moderate /HPF (0-FEW) Urine Opiates Screen Neg (NEG) Urine Methadone Screen Neg (NEG) Urine Barbiturates Neg (NEG) Urine Phencyclidine Screen Neg (NEG) Urine Amphetamine/Methamphetamine Neg (NEG) Urine Benzodiazepines Screen Neg (NEG) Urine Cocaine Screen Neg (NEG) Urine Cannabinoids Screen Pos (NEG) Urine Ethyl Alcohol Neg (NEG) White Blood Count 12.1 x10^3/uL (4.0-11.0) Red Blood Count 4.62 x10^6/uL (3.50-5.40) Hemoglobin 14.0 g/dL (12.0-15.5) Hematocrit 41.1 % (36.0-47.0) Mean Corpuscular Volume 89 fL (79-100) Mean Corpuscular Hemoglobin 30 pg (25-35) Mean Corpuscular Hemoglobin Concent 34 g/dL (31-37) Red Cell Distribution Width 13.0 % (11.5-14.5) Platelet Count 210 x10^3/uL (140-400) Neutrophils (%) (Auto) 86 % (31-73) Lymphocytes (%) (Auto) 10 % (24-48) Monocytes (%) (Auto) 4 % (0-9) Eosinophils (%) (Auto) 0 % (0-3) Basophils (%) (Auto) 0 % (0-3) Neutrophils # (Auto) 10.5 x10^3uL (1.8-7.7) Lymphocytes # (Auto) 1.2 x10^3/uL (1.0-4.8) Monocytes # (Auto) 0.5 x10^3/uL (0.0-1.1) Eosinophils # (Auto) 0.0 x10^3/uL (0.0-0.7) Basophils # (Auto) 0.0 x10^3/uL (0.0-0.2) Segmented Neutrophils % 83 % (35-66) Band Neutrophils % 3 % (0-9) Lymphocytes % 9 % (24-48) Monocytes % 5 % (0-10) Platelet Estimate Adequate (ADEQUATE) Sodium Level 138 mmol/L (136-145) Potassium Level 3.9 mmol/L (3.5-5.1) Chloride Level 100 mmol/L (98-107) Carbon Dioxide Level 27 mmol/L (21-32) Anion Gap 11 (6-14) Blood Urea Nitrogen 9 mg/dL (7-20) Creatinine 0.7 mg/dL (0.6-1.0) Estimated GFR (Cockcroft-Gault) 102.8 BUN/Creatinine Ratio 13 (6-20) Glucose Level 150 mg/dL (70-99) Calcium Level 9.5 mg/dL (8.5-10.1) Total Bilirubin 0.4 mg/dL (0.2-1.0) Aspartate Amino Transf (AST/SGOT) 12 U/L (15-37) Alanine Aminotransferase (ALT/SGPT) 14 U/L (14-59) Alkaline Phosphatase 65 U/L (46-116) Total Protein 8.1 g/dL (6.4-8.2) Albumin 4.4 g/dL (3.4-5.0) Albumin/Globulin Ratio 1.2 (1.0-1.7) Laboratory Tests Test 06/10/17 07:39 06/10/17 07:40 Urine Collection Type Unknown Urine Color Yellow Urine Clarity Cloudy Urine pH 8.5 Urine Specific [place] 1.020 Urine Protein Negative mg/dL (NEG-TRACE) Urine Glucose (UA) Negative mg/dL (NEG) Urine Ketones (Stick) Negative mg/dL (NEG) Urine Blood Negative (NEG) Urine Nitrite Negative (NEG) Urine Bilirubin Negative (NEG) Urine Urobilinogen Dipstick 1.0 mg/dL (0.2 mg/dL) Urine Leukocyte Esterase Moderate (NEG) Urine RBC Occ /HPF (0-2) Urine WBC 11-20 /HPF (0-4) Urine Squamous Epithelial Cells Many /LPF Urine Bacteria Moderate /HPF (0-FEW) Urine Opiates Screen Neg (NEG) Urine Methadone Screen Neg (NEG) Urine Barbiturates Neg (NEG) Urine Phencyclidine Screen Neg (NEG) Urine Amphetamine/Methamphetamine Neg (NEG) Urine Benzodiazepines Screen Neg (NEG) Urine Cocaine Screen Neg (NEG) Urine Cannabinoids Screen Pos (NEG) Urine Ethyl Alcohol Neg (NEG) White Blood Count 12.1 x10^3/uL (4.0-11.0) Red Blood Count 4.62 x10^6/uL (3.50-5.40) Hemoglobin 14.0 g/dL (12.0-15.5) Hematocrit 41.1 % (36.0-47.0) Mean Corpuscular Volume 89 fL (79-100) Mean Corpuscular Hemoglobin 30 pg (25-35) Mean Corpuscular Hemoglobin Concent 34 g/dL (31-37) Red Cell Distribution Width 13.0 % (11.5-14.5) Platelet Count 210 x10^3/uL (140-400) Neutrophils (%) (Auto) 86 % (31-73) Lymphocytes (%) (Auto) 10 % (24-48) Monocytes (%) (Auto) 4 % (0-9) Eosinophils (%) (Auto) 0 % (0-3) Basophils (%) (Auto) 0 % (0-3) Neutrophils # (Auto) 10.5 x10^3uL (1.8-7.7) Lymphocytes # (Auto) 1.2 x10^3/uL (1.0-4.8) Monocytes # (Auto) 0.5 x10^3/uL (0.0-1.1) Eosinophils # (Auto) 0.0 x10^3/uL (0.0-0.7) Basophils # (Auto) 0.0 x10^3/uL (0.0-0.2) Segmented Neutrophils % 83 % (35-66) Band Neutrophils % 3 % (0-9) Lymphocytes % 9 % (24-48) Monocytes % 5 % (0-10) Platelet Estimate Adequate (ADEQUATE) Sodium Level 138 mmol/L (136-145) Potassium Level 3.9 mmol/L (3.5-5.1) Chloride Level 100 mmol/L (98-107) Carbon Dioxide Level 27 mmol/L (21-32) Anion Gap 11 (6-14) Blood Urea Nitrogen 9 mg/dL (7-20) Creatinine 0.7 mg/dL (0.6-1.0) Estimated GFR (Cockcroft-Gault) 102.8 BUN/Creatinine Ratio 13 (6-20) Glucose Level 150 mg/dL (70-99) Calcium Level 9.5 mg/dL (8.5-10.1) Total Bilirubin 0.4 mg/dL (0.2-1.0) Aspartate Amino Transf (AST/SGOT) 12 U/L (15-37) Alanine Aminotransferase (ALT/SGPT) 14 U/L (14-59) Alkaline Phosphatase 65 U/L (46-116) Total Protein 8.1 g/dL (6.4-8.2) Albumin 4.4 g/dL (3.4-5.0) Albumin/Globulin Ratio 1.2 (1.0-1.7) VTE Prophylaxis Ordered VTE Prophylaxis Devices: Yes VTE Pharmacological Prophylaxi: Yes Assessment/Plan Assessment/Plan 1. Cyclic vomiter 2. Sinus tachy 3. SIRS no sepsis PLAN: Admit Anti nause and pain meds IVF ADAT OBS GEOVANNI PENNINGTON MD Jun 10, 2017 10:36
[2017-06-10] MEDS: PROCHLORPERAZINE 10 MG/2 ML VIAL. IV PRN ×2 (11:14→22:59)
[2017-06-10] MEDS: IV NORMAL SALINE 1000ML BAG 1,000 ML IV SCH ×3 (11:14→23:45)
[2017-06-10 12:00] VITALS: BP 169/79
[2017-06-10 12:04] LABS: NEG OBC UR NEG; POS OBC UR POS
[2017-06-10] MEDS: MORPHINE SULFATE 4 MG/ML DISP.SYRIN. IV PRN ×5 (13:07→22:58)
[2017-06-10 15:00] VITALS: BP 129/85
[2017-06-10] MEDS: METOCLOPRAMIDE HCL 10 MG/2 ML VIAL. IV SCH ×2 (15:05→20:45)
[2017-06-10] MEDS: ONDANSETRON PF 4 MG/2 ML VIAL. IV PRN (18:10)
[2017-06-10 19:00] VITALS: BP 134/94
[2017-06-10] MEDS: CIPROFLOXACIN 400MG PREMIX 200 ML IV SCH (20:43)
[2017-06-10] MEDS ORDERED: CIPROFLOXACIN 400MG PREMIX 200 ML IV SCH (21:00)
[2017-06-10 23:00] VITALS: BP 95/67
[2017-06-11] MEDS: MORPHINE SULFATE 4 MG/ML DISP.SYRIN. IV PRN ×7 (01:34→23:28)
[2017-06-11] MEDS: ONDANSETRON PF 4 MG/2 ML VIAL. IV PRN ×3 (01:34→23:28)
--- NOTE | 2017-06-11 01:59 | ACF ---
Admission Forms Criteria ABDOMINAL PAIN Clinical Indications for Admission to Inpatient Care ( alutiiq/check or initial the applicable condition/criteria): Admission is indicated for ANY ONE of the following (1)(2)(3)(4)(5)(6): [ ]I. Surgery needed that cannot be performed on ambulatory basis [ ]II. Peritoneal signs present (eg, rebound tenderness, rigidity) [ ]III. Evaluation requires patient to not eat or drink for extended period ( eg, more than 24 hours). [ X]IV. Inpatient admission required[B] rather than observation care (see Abdominal Pain: Observation Care guideline as appropriate) because of ANY ONE of the following(7)(8)(9): [ ] a) Hemodynamic instability [ ]b) Severe pain requiring acute inpatient management [ X]c) Identification of etiology or finding that requires inpatient care (eg, aortic dissection, free air,bowel ischemia)(10) [ ]d) Absent bowel sounds with complete ileus (11) [ ]e) Signs of intestinal obstruction[C] [ ]f) Suspected toxic megacolon [ ]g) Severe electrolyte abnormalities requiring inpatient care [ ]h) High fever or infection requiring inpatient admission as indicated by ANY ONE of the following (12)(13): [ ]i) Appropriate outpatient or observation care antimicrobial treatment unavailable, not effective, or not feasible [ ]ii) Documented bacteremia [ ]iii) Temperature greater than 104.9 degrees F (40.5 degrees C) (oral) [ ]iv) Temperature greater than 103.1 degrees F (39.5 degrees C) ( oral) or less than 96.8 degrees F (36 degrees C) (rectal) that does not respond to all emergency treatment measures [ ]i) IV fluid required rather than oral rehydration to replace significant ongoing (eg, for greater than 24 hours) losses (greater than 3 L/m2 per day)(14)(15) [ ]j) Percutaneous or open drainage (eg, abscess, biliary tract) procedures [ ]k) Parenteral nutrition regimen that must be implemented on inpatient basis [ ]l) Other condition, treatment, or monitoring requiring inpatient admission Extended stay beyond goal length of stay may be needed for (1)(3)(4)(10)(16): [ ]a) Surgery (e.g., colectomy, revascularization procedure) [ ]b) Persistent abdominal pain with suspected intra-abdominal process [ ]c) Diagnosed condition requiring continued stay (e.g., pancreatitis, complicated diverticulitis) The original [facility] content created by [facility] has been revised. The portions of the content which have been revised are identified through the use of italic text, and [facility] has neither reviewed nor approved the modified material.All other unmodified content is copyright [facility]. Please see references footnoted in the original [facility] edition 2015 Admission Criteria Met?: Yes ZARI PEÑALOZA Jun 11, 2017 01:59
[2017-06-11 05:25] LABS: BASO % 0 % (0-3); EOS % 0 % (0-3); LYMPH # 1.9 x10^3/uL (1.0-4.8); LYMPH % 21 % (24-48); MEAN CORPUSCULAR HEMOGLOBIN 31 pg (25-35); MEAN CORPUSCULAR HGB CONC 34 g/dL (31-37); MEAN CORPUSCULAR VOLUME 89 fL (79-100); MONO % 7 % (0-9); NEUT % 72 % (31-73); PLATELET COUNT 179 x10^3/uL (140-400); RED BLOOD COUNT 3.92 x10^6/uL (3.50-5.40); RED CELL DISTRIBUTION WIDTH 12.7 % (11.5-14.5); WHITE BLOOD COUNT 9.2 x10^3/uL (4.0-11.0)
[2017-06-11 05:35] LABS: CALCIUM 8.8 mg/dL (8.5-10.1); CREATININE 0.6 mg/dL (0.6-1.0); GFR 122.8; POTASSIUM 3.6 mmol/L (3.5-5.1)
[2017-06-11] MEDS: PROCHLORPERAZINE 10 MG/2 ML VIAL. IV PRN ×2 (05:35→13:50)
[2017-06-11 07:00] VITALS: BP 107/68
[2017-06-11] MEDS: CIPROFLOXACIN 400MG PREMIX 200 ML IV SCH (08:13)
[2017-06-11] MEDS: METOCLOPRAMIDE HCL 10 MG/2 ML VIAL. IV SCH ×3 (08:14→20:34)
[2017-06-11 11:00] VITALS: BP 107/62
[2017-06-11] MEDS ORDERED: DOCUSATE SODIUM 100 MG CAPSULE. PO PRN (11:30)
[2017-06-11] MEDS ORDERED: hydrALAZINE 20 MG/ML VIAL. IVP PRN (11:30)
[2017-06-11] MEDS ORDERED: ACETAMINOPHEN 325 MG TABLET. PO PRN (11:30)
[2017-06-11] MEDS ORDERED: traMADol 50 MG TABLET PO PRN (11:30)
[2017-06-11] MEDS ORDERED: MORPHINE SULFATE 2 MG/ML DISP.SYRIN. IV PRN (11:30)
[2017-06-11] MEDS: IV NORMAL SALINE 1000ML BAG 1,000 ML IV SCH ×2 (13:52→20:46)
--- NOTE | 2017-06-11 13:56 | PDOC ---
PROGRESS NOTES Chief Complaint Chief Complaint abd , N/V, with cyclic vomiting syndrome and marijuana abuse anxiety h/o hypokalemia with vomiting uncompliance, comes to hosp every 1-2 weeks for same reason doubt UTI plan: cont amtryptyline pain control full liquid ivf replete K dvt, gi ppx hope advance diet soon labs tmr dc cipro for now hope dc tmr History of Present Illness History of Present Illness N/V better still abd pain 05/27 from 07/27 yesterday ROS, no fever, chills, sob or chest pain Vitals Vitals Vital Signs Date Time Temp Pulse Resp B/P (MAP) Pulse Ox O2 Delivery O2 Flow Rate FiO2 06/11/17 11:00 99.0 82 18 107/62 (77) 98 Room Air 99.0 Physical Exam General: Alert, Oriented X3, No acute distress, Other (but clearly uncomfrotable and actively ) Heart: Regular rate, Normal S1 Lungs: Clear, Other Abdomen: Soft Extremities: No clubbing, No cyanosis, No edema, Normal pulses, No tenderness/ swelling Skin: No rashes, No breakdown, No significant lesion Labs LABS Laboratory Tests Test 06/11/17 03:45 White Blood Count 9.2 x10^3/uL (4.0-11.0) Red Blood Count 3.92 x10^6/uL (3.50-5.40) Hemoglobin 12.0 g/dL (12.0-15.5) Hematocrit 35.0 % (36.0-47.0) Mean Corpuscular Volume 89 fL (79-100) Mean Corpuscular Hemoglobin 31 pg (25-35) Mean Corpuscular Hemoglobin Concent 34 g/dL (31-37) Red Cell Distribution Width 12.7 % (11.5-14.5) Platelet Count 179 x10^3/uL (140-400) Neutrophils (%) (Auto) 72 % (31-73) Lymphocytes (%) (Auto) 21 % (24-48) Monocytes (%) (Auto) 7 % (0-9) Eosinophils (%) (Auto) 0 % (0-3) Basophils (%) (Auto) 0 % (0-3) Neutrophils # (Auto) 6.6 x10^3uL (1.8-7.7) Lymphocytes # (Auto) 1.9 x10^3/uL (1.0-4.8) Monocytes # (Auto) 0.6 x10^3/uL (0.0-1.1) Eosinophils # (Auto) 0.0 x10^3/uL (0.0-0.7) Basophils # (Auto) 0.0 x10^3/uL (0.0-0.2) Sodium Level 139 mmol/L (136-145) Potassium Level 3.6 mmol/L (3.5-5.1) Chloride Level 103 mmol/L (98-107) Carbon Dioxide Level 25 mmol/L (21-32) Anion Gap 11 (6-14) Blood Urea Nitrogen 6 mg/dL (7-20) Creatinine 0.6 mg/dL (0.6-1.0) Estimated GFR (Cockcroft-Gault) 122.8 Glucose Level 99 mg/dL (70-99) Calcium Level 8.8 mg/dL (8.5-10.1) Assessment and Plan Assessmemt and Plan Problems Medical Problems: (1) Abdominal pain Status: Acute (2) UTI (urinary tract infection) Status: Acute Problems: Comment Review of Relevant I have reviewed the following items miguel (where applicable) has been applied. Labs Laboratory Tests Test 06/10/17 07:39 06/10/17 07:40 06/11/17 03:45 Urine Collection Type Unknown Urine Color Yellow Urine Clarity Cloudy Urine pH 8.5 Urine Specific [place] 1.020 Urine Protein Negative mg/dL (NEG-TRACE) Urine Glucose (UA) Negative mg/dL (NEG) Urine Ketones (Stick) Negative mg/dL (NEG) Urine Blood Negative (NEG) Urine Nitrite Negative (NEG) Urine Bilirubin Negative (NEG) Urine Urobilinogen Dipstick 1.0 mg/dL (0.2 mg/dL) Urine Leukocyte Esterase Moderate (NEG) Urine RBC Occ /HPF (0-2) Urine WBC 11-20 /HPF (0-4) Urine Squamous Epithelial Cells Many /LPF Urine Bacteria Moderate /HPF (0-FEW) Urine Test Negative (NEG) Urine Opiates Screen Neg (NEG) Urine Methadone Screen Neg (NEG) Urine Barbiturates Neg (NEG) Urine Phencyclidine Screen Neg (NEG) Urine Amphetamine/Methamphetamine Neg (NEG) Urine Benzodiazepines Screen Neg (NEG) Urine Cocaine Screen Neg (NEG) Urine Cannabinoids Screen Pos (NEG) Urine Ethyl Alcohol Neg (NEG) White Blood Count 12.1 x10^3/uL (4.0-11.0) 9.2 x10^3/uL (4.0-11.0) Red Blood Count 4.62 x10^6/uL (3.50-5.40) 3.92 x10^6/uL (3.50-5.40) Hemoglobin 14.0 g/dL (12.0-15.5) 12.0 g/dL (12.0-15.5) Hematocrit 41.1 % (36.0-47.0) 35.0 % (36.0-47.0) Mean Corpuscular Volume 89 fL (79-100) 89 fL (79-100) Mean Corpuscular Hemoglobin 30 pg (25-35) 31 pg (25-35) Mean Corpuscular Hemoglobin Concent 34 g/dL (31-37) 34 g/dL (31-37) Red Cell Distribution Width 13.0 % (11.5-14.5) 12.7 % (11.5-14.5) Platelet Count 210 x10^3/uL (140-400) 179 x10^3/uL (140-400) Neutrophils (%) (Auto) 86 % (31-73) 72 % (31-73) Lymphocytes (%) (Auto) 10 % (24-48) 21 % (24-48) Monocytes (%) (Auto) 4 % (0-9) 7 % (0-9) Eosinophils (%) (Auto) 0 % (0-3) 0 % (0-3) Basophils (%) (Auto) 0 % (0-3) 0 % (0-3) Neutrophils # (Auto) 10.5 x10^3uL (1.8-7.7) 6.6 x10^3uL (1.8-7.7) Lymphocytes # (Auto) 1.2 x10^3/uL (1.0-4.8) 1.9 x10^3/uL (1.0-4.8) Monocytes # (Auto) 0.5 x10^3/uL (0.0-1.1) 0.6 x10^3/uL (0.0-1.1) Eosinophils # (Auto) 0.0 x10^3/uL (0.0-0.7) 0.0 x10^3/uL (0.0-0.7) Basophils # (Auto) 0.0 x10^3/uL (0.0-0.2) 0.0 x10^3/uL (0.0-0.2) Segmented Neutrophils % 83 % (35-66) Band Neutrophils % 3 % (0-9) Lymphocytes % 9 % (24-48) Monocytes % 5 % (0-10) Platelet Estimate Adequate (ADEQUATE) Sodium Level 138 mmol/L (136-145) 139 mmol/L (136-145) Potassium Level 3.9 mmol/L (3.5-5.1) 3.6 mmol/L (3.5-5.1) Chloride Level 100 mmol/L (98-107) 103 mmol/L (98-107) Carbon Dioxide Level 27 mmol/L (21-32) 25 mmol/L (21-32) Anion Gap 11 (6-14) 11 (6-14) Blood Urea Nitrogen 9 mg/dL (7-20) 6 mg/dL (7-20) Creatinine 0.7 mg/dL (0.6-1.0) 0.6 mg/dL (0.6-1.0) Estimated GFR (Cockcroft-Gault) 102.8 122.8 BUN/Creatinine Ratio 13 (6-20) Glucose Level 150 mg/dL (70-99) 99 mg/dL (70-99) Calcium Level 9.5 mg/dL (8.5-10.1) 8.8 mg/dL (8.5-10.1) Total Bilirubin 0.4 mg/dL (0.2-1.0) Aspartate Amino Transf (AST/SGOT) 12 U/L (15-37) Alanine Aminotransferase (ALT/SGPT) 14 U/L (14-59) Alkaline Phosphatase 65 U/L (46-116) Total Protein 8.1 g/dL (6.4-8.2) Albumin 4.4 g/dL (3.4-5.0) Albumin/Globulin Ratio 1.2 (1.0-1.7) Laboratory Tests Test 06/11/17 03:45 White Blood Count 9.2 x10^3/uL (4.0-11.0) Red Blood Count 3.92 x10^6/uL (3.50-5.40) Hemoglobin 12.0 g/dL (12.0-15.5) Hematocrit 35.0 % (36.0-47.0) Mean Corpuscular Volume 89 fL (79-100) Mean Corpuscular Hemoglobin 31 pg (25-35) Mean Corpuscular Hemoglobin Concent 34 g/dL (31-37) Red Cell Distribution Width 12.7 % (11.5-14.5) Platelet Count 179 x10^3/uL (140-400) Neutrophils (%) (Auto) 72 % (31-73) Lymphocytes (%) (Auto) 21 % (24-48) Monocytes (%) (Auto) 7 % (0-9) Eosinophils (%) (Auto) 0 % (0-3) Basophils (%) (Auto) 0 % (0-3) Neutrophils # (Auto) 6.6 x10^3uL (1.8-7.7) Lymphocytes # (Auto) 1.9 x10^3/uL (1.0-4.8) Monocytes # (Auto) 0.6 x10^3/uL (0.0-1.1) Eosinophils # (Auto) 0.0 x10^3/uL (0.0-0.7) Basophils # (Auto) 0.0 x10^3/uL (0.0-0.2) Sodium Level 139 mmol/L (136-145) Potassium Level 3.6 mmol/L (3.5-5.1) Chloride Level 103 mmol/L (98-107) Carbon Dioxide Level 25 mmol/L (21-32) Anion Gap 11 (6-14) Blood Urea Nitrogen 6 mg/dL (7-20) Creatinine 0.6 mg/dL (0.6-1.0) Estimated GFR (Cockcroft-Gault) 122.8 Glucose Level 99 mg/dL (70-99) Calcium Level 8.8 mg/dL (8.5-10.1) Medications Current Medications Sodium Chloride 1,000 ml @ 1,000 mls/hr 1X ONCE IV Last administered on t 08:02; Start 06/10/17 at 08:00; Stop 06/10/17 at 08:59; Status DC Dicyclomine HCl (Bentyl) 10 mg 1X ONCE IM Last administered on 06/10/17 08:03 ; Start 06/10/17 at 08:00; Stop 06/10/17 at 08:01; Status DC Promethazine HCl (Phenergan Im) 25 mg 1X ONCE IM Last administered on 08:02; Start 06/10/17 at 08:00; Stop 06/10/17 at 08:01; Status DC Ondansetron HCl (Zofran) 4 mg PRN Q8HRS PRN IV NAUSEA/VOMITING Last administered on 06/10/17 10:16; Start 06/10/17 at 09:45; Stop 06/10/17 at 10:33 ; Status DC Fentanyl Citrate (Fentanyl 2ml Vial) 50 mcg PRN Q2HR PRN IV PAIN Last administered on 06/10/17 10:16; Start 06/10/17 at 09:45; Stop 06/10/17 at 10:33 ; Status DC Sodium Chloride 1,000 ml @ 125 mls/hr Q8H IV Last administered on 06/10/17 23 :45; Start 06/10/17 at 09:33; Stop 06/11/17 at 09:32; Status DC Ondansetron HCl (Zofran) 4 mg PRN Q6HRS PRN IV NAUSEA/VOMITING Last administered on 06/11/17 01:34; Start 06/10/17 at 10:30; Stop 06/11/17 at 10:29 ; Status DC Prochlorperazine Edisylate (Compazine) 10 mg PRN Q6HRS PRN IV NAUSEA/VOMITING Last administered on 06/11/17 05:35; Start 06/10/17 at 10:30 Morphine Sulfate 2 mg PRN Q2HR PRN IV PAIN; Start 06/10/17 at 10:30; Stop 06/10 at 12:48; Status DC Lorazepam (Ativan) 1 mg PRN Q4HRS PRN IV ANXIETY / AGITATION; Start 06/10/17 at 10:30 Hydromorphone HCl (Dilaudid) 0.2 mg PRN Q4HRS PRN IVP PAIN Last administered on 06/10/17 11:13; Start 06/10/17 at 10:30 Metoclopramide HCl (Reglan) 10 mg TID IV Last administered on 06/11/17 08:14; Start 06/10/17 at 14:00 Morphine Sulfate 2 mg PRN Q2HR PRN IV PAIN Last administered on 06/11/17 08:14 ; Start 06/10/17 at 12:48 Sodium Chloride 1,000 ml @ 75 mls/hr [id number] IV ; Start 06/11/17 at 12:00 Acetaminophen (Tylenol) 650 mg PRN Q6HRS PRN PO FEVER; Start 06/11/17 at 11:30 Ondansetron HCl (Zofran) 4 mg PRN Q6HRS PRN IV NAUSEA/VOMITING; Start 06/11/17 at 11:30 Morphine Sulfate 2 mg PRN Q2HR PRN IV PAIN; Start 06/11/17 at 11:30 Tramadol HCl (Ultram) 50 mg PRN Q6HRS PRN PO PAIN; Start 06/11/17 at 11:30 Hydralazine HCl (Apresoline) 10 mg PRN Q4HRS PRN IVP ELEVATED BP, SEE COMMENTS ; Start 06/11/17 at 11:30 Docusate Sodium (Colace) 100 mg PRN DAILY PRN PO CONSTIPATION; Start 06/11/17 at 11:30 Active Scripts Active Prochlorperazine Maleate 10 Mg Tablet 1 Tab PO Q6HRS Amitriptyline Hcl 50 Mg Tablet 1 Tab PO QHS Vitals/I & O Vital Sign - Last 24 Hours 06/10/17 06/10/17 06/10/17 06/10/17 15:00 19:00 20:44 22:58 Temp 98.2 98.7 98.2 98.7 Pulse 87 72 Resp 20 16 16 17 B/P (MAP) 129/85 (100) 134/94 (107) Pulse Ox 97 97 97 97 O2 Delivery Room Air Room Air Room Air 06/10/17 06/11/17 06/11/17 06/11/17 23:00 01:34 02:10 03:00 Temp 98.6 98.6 Pulse 90 Resp 16 16 16 B/P (MAP) 95/67 (76) Pulse Ox 96 97 97 O2 Delivery Room Air Room Air 06/11/17 06/11/17 06/11/17 05:36 07:00 11:00 Temp 98.1 99.0 98.1 99.0 Pulse 77 82 Resp 18 18 18 B/P (MAP) 107/68 (81) 107/62 (77) Pulse Ox 98 98 O2 Delivery Room Air Room Air Room Air Intake and Output 06/10/17 06/10/17 06/11/17 15:00 23:00 07:00 Intake Total 300 ml Output Total 500 ml Balance 300 ml -500 ml IVAN TILLEY MD Jun 11, 2017 13:56
[2017-06-11] MEDS: PROCHLORPERAZINE 5 MG TABLET. PO SCH ×3 (13:59→23:31)
[2017-06-11 15:00] VITALS: BP 131/92
[2017-06-11] MEDS: ENOXAPARIN 40 MG/0.4 ML SYRINGE. SQ SCH (15:00)
[2017-06-11 19:59] VITALS: BP 139/94
[2017-06-11] MEDS: AMITRIPTYLINE HCL 50 MG TABLET PO SCH (20:45)
[2017-06-11 23:59] VITALS: BP 139/96
[2017-06-12] MEDS: PROCHLORPERAZINE 10 MG/2 ML VIAL. IV PRN ×3 (03:55→17:31)
[2017-06-12] MEDS: MORPHINE SULFATE 4 MG/ML DISP.SYRIN. IV PRN ×7 (03:56→22:52)
[2017-06-12] MEDS: PROCHLORPERAZINE 5 MG TABLET. PO SCH ×4 (03:58→20:50)
[2017-06-12 05:21] LABS: BASO % 0 % (0-3); EOS % 1 % (0-3); HEMATOCRIT 32.7 % (36.0-47.0); HEMOGLOBIN 11.7 g/dL (12.0-15.5); LYMPH # 2.8 x10^3/uL (1.0-4.8); LYMPH % 30 % (24-48); MEAN CORPUSCULAR HEMOGLOBIN 31 pg (25-35); MEAN CORPUSCULAR HGB CONC 36 g/dL (31-37); MEAN CORPUSCULAR VOLUME 87 fL (79-100); MONO % 5 % (0-9); NEUT % 64 % (31-73); PLATELET COUNT 167 x10^3/uL (140-400); RED BLOOD COUNT 3.77 x10^6/uL (3.50-5.40); RED CELL DISTRIBUTION WIDTH 12.7 % (11.5-14.5); WHITE BLOOD COUNT 9.5 x10^3/uL (4.0-11.0)
[2017-06-12 06:18] LABS: CALCIUM 8.5 mg/dL (8.5-10.1); CREATININE 0.5 mg/dL (0.6-1.0); GFR 151.6; POTASSIUM 3.6 mmol/L (3.5-5.1)
[2017-06-12 07:00] VITALS: BP 122/75
[2017-06-12] MEDS: METOCLOPRAMIDE HCL 10 MG/2 ML VIAL. IV SCH ×3 (08:09→20:48)
[2017-06-12] MEDS: IV NORMAL SALINE 1000ML BAG 1,000 ML IV SCH ×2 (08:14→20:49)
[2017-06-12 11:00] VITALS: BP 95/57
--- NOTE | 2017-06-12 13:29 | PDOC ---
PROGRESS NOTES Chief Complaint Chief Complaint abd , N/V, with cyclic vomiting syndrome and marijuana abuse UTI PMH: anxiety h/o hypokalemia with vomiting History of Present Illness History of Present Illness Pt laying in bed, reports it is a bad day. Pain has not been well controlled. Pt is walking to [facility] for water. Vitals Vitals Vital Signs Date Time Temp Pulse Resp B/P (MAP) Pulse Ox O2 Delivery O2 Flow Rate FiO2 06/12/17 11:00 97.7 68 18 95/57 (70) 97 Room Air 97.7 Physical Exam General: Alert, Oriented X3, No acute distress, Other (but clearly uncomfrotable) Heart: Regular rate Lungs: Clear, Other (no wheezing, no crackles) Abdomen: Soft Extremities: No clubbing, No cyanosis, No edema, Normal pulses, No tenderness/ swelling Skin: No rashes, No breakdown, No significant lesion Labs LABS Laboratory Tests Test 06/12/17 03:45 White Blood Count 9.5 x10^3/uL (4.0-11.0) Red Blood Count 3.77 x10^6/uL (3.50-5.40) Hemoglobin 11.7 g/dL (12.0-15.5) Hematocrit 32.7 % (36.0-47.0) Mean Corpuscular Volume 87 fL (79-100) Mean Corpuscular Hemoglobin 31 pg (25-35) Mean Corpuscular Hemoglobin Concent 36 g/dL (31-37) Red Cell Distribution Width 12.7 % (11.5-14.5) Platelet Count 167 x10^3/uL (140-400) Neutrophils (%) (Auto) 64 % (31-73) Lymphocytes (%) (Auto) 30 % (24-48) Monocytes (%) (Auto) 5 % (0-9) Eosinophils (%) (Auto) 1 % (0-3) Basophils (%) (Auto) 0 % (0-3) Neutrophils # (Auto) 6.1 x10^3uL (1.8-7.7) Lymphocytes # (Auto) 2.8 x10^3/uL (1.0-4.8) Monocytes # (Auto) 0.5 x10^3/uL (0.0-1.1) Eosinophils # (Auto) 0.1 x10^3/uL (0.0-0.7) Basophils # (Auto) 0.0 x10^3/uL (0.0-0.2) Sodium Level 137 mmol/L (136-145) Potassium Level 3.6 mmol/L (3.5-5.1) Chloride Level 102 mmol/L (98-107) Carbon Dioxide Level 24 mmol/L (21-32) Anion Gap 11 (6-14) Blood Urea Nitrogen 6 mg/dL (7-20) Creatinine 0.5 mg/dL (0.6-1.0) Estimated GFR (Cockcroft-Gault) 151.6 Glucose Level 84 mg/dL (70-99) Calcium Level 8.5 mg/dL (8.5-10.1) Review of Systems Review of Systems Nausea Vomiting abdominal pain Assessment and Plan Assessmemt and Plan Problems Medical Problems: (1) Abdominal pain Status: Acute (2) UTI (urinary tract infection) Status: Acute Cyclic vomiting syndrome Abdominal pain Constipation - resolved 1. Restart abx for UTI - Cipro 400 mg IV q12 hr 2. Continue Zofran 3. Continue home meds 4. Continue fluids 5. Recheck labs in am 6. Pain control 7. DVT/GI ppx Problems: Comment Review of Relevant I have reviewed the following items miguel (where applicable) has been applied. Labs Laboratory Tests Test 06/11/17 03:45 06/12/17 03:45 White Blood Count 9.2 x10^3/uL (4.0-11.0) 9.5 x10^3/uL (4.0-11.0) Red Blood Count 3.92 x10^6/uL (3.50-5.40) 3.77 x10^6/uL (3.50-5.40) Hemoglobin 12.0 g/dL (12.0-15.5) 11.7 g/dL (12.0-15.5) Hematocrit 35.0 % (36.0-47.0) 32.7 % (36.0-47.0) Mean Corpuscular Volume 89 fL (79-100) 87 fL (79-100) Mean Corpuscular Hemoglobin 31 pg (25-35) 31 pg (25-35) Mean Corpuscular Hemoglobin Concent 34 g/dL (31-37) 36 g/dL (31-37) Red Cell Distribution Width 12.7 % (11.5-14.5) 12.7 % (11.5-14.5) Platelet Count 179 x10^3/uL (140-400) 167 x10^3/uL (140-400) Neutrophils (%) (Auto) 72 % (31-73) 64 % (31-73) Lymphocytes (%) (Auto) 21 % (24-48) 30 % (24-48) Monocytes (%) (Auto) 7 % (0-9) 5 % (0-9) Eosinophils (%) (Auto) 0 % (0-3) 1 % (0-3) Basophils (%) (Auto) 0 % (0-3) 0 % (0-3) Neutrophils # (Auto) 6.6 x10^3uL (1.8-7.7) 6.1 x10^3uL (1.8-7.7) Lymphocytes # (Auto) 1.9 x10^3/uL (1.0-4.8) 2.8 x10^3/uL (1.0-4.8) Monocytes # (Auto) 0.6 x10^3/uL (0.0-1.1) 0.5 x10^3/uL (0.0-1.1) Eosinophils # (Auto) 0.0 x10^3/uL (0.0-0.7) 0.1 x10^3/uL (0.0-0.7) Basophils # (Auto) 0.0 x10^3/uL (0.0-0.2) 0.0 x10^3/uL (0.0-0.2) Sodium Level 139 mmol/L (136-145) 137 mmol/L (136-145) Potassium Level 3.6 mmol/L (3.5-5.1) 3.6 mmol/L (3.5-5.1) Chloride Level 103 mmol/L (98-107) 102 mmol/L (98-107) Carbon Dioxide Level 25 mmol/L (21-32) 24 mmol/L (21-32) Anion Gap 11 (6-14) 11 (6-14) Blood Urea Nitrogen 6 mg/dL (7-20) 6 mg/dL (7-20) Creatinine 0.6 mg/dL (0.6-1.0) 0.5 mg/dL (0.6-1.0) Estimated GFR (Cockcroft-Gault) 122.8 151.6 Glucose Level 99 mg/dL (70-99) 84 mg/dL (70-99) Calcium Level 8.8 mg/dL (8.5-10.1) 8.5 mg/dL (8.5-10.1) Laboratory Tests Test 06/12/17 03:45 White Blood Count 9.5 x10^3/uL (4.0-11.0) Red Blood Count 3.77 x10^6/uL (3.50-5.40) Hemoglobin 11.7 g/dL (12.0-15.5) Hematocrit 32.7 % (36.0-47.0) Mean Corpuscular Volume 87 fL (79-100) Mean Corpuscular Hemoglobin 31 pg (25-35) Mean Corpuscular Hemoglobin Concent 36 g/dL (31-37) Red Cell Distribution Width 12.7 % (11.5-14.5) Platelet Count 167 x10^3/uL (140-400) Neutrophils (%) (Auto) 64 % (31-73) Lymphocytes (%) (Auto) 30 % (24-48) Monocytes (%) (Auto) 5 % (0-9) Eosinophils (%) (Auto) 1 % (0-3) Basophils (%) (Auto) 0 % (0-3) Neutrophils # (Auto) 6.1 x10^3uL (1.8-7.7) Lymphocytes # (Auto) 2.8 x10^3/uL (1.0-4.8) Monocytes # (Auto) 0.5 x10^3/uL (0.0-1.1) Eosinophils # (Auto) 0.1 x10^3/uL (0.0-0.7) Basophils # (Auto) 0.0 x10^3/uL (0.0-0.2) Sodium Level 137 mmol/L (136-145) Potassium Level 3.6 mmol/L (3.5-5.1) Chloride Level 102 mmol/L (98-107) Carbon Dioxide Level 24 mmol/L (21-32) Anion Gap 11 (6-14) Blood Urea Nitrogen 6 mg/dL (7-20) Creatinine 0.5 mg/dL (0.6-1.0) Estimated GFR (Cockcroft-Gault) 151.6 Glucose Level 84 mg/dL (70-99) Calcium Level 8.5 mg/dL (8.5-10.1) Medications Current Medications Sodium Chloride 1,000 ml @ 1,000 mls/hr 1X ONCE IV Last administered on 08:02; Start 06/10/17 at 08:00; Stop 06/10/17 at 08:59; Status DC Dicyclomine HCl (Bentyl) 10 mg 1X ONCE IM Last administered on 06/10/17 08:03 ; Start 06/10/17 at 08:00; Stop 06/10/17 at 08:01; Status DC Promethazine HCl (Phenergan Im) 25 mg 1X ONCE IM Last administered on 08:02; Start 06/10/17 at 08:00; Stop 06/10/17 at 08:01; Status DC Ondansetron HCl (Zofran) 4 mg PRN Q8HRS PRN IV NAUSEA/VOMITING Last administered on 06/10/17 10:16; Start 06/10/17 at 09:45; Stop 06/10/17 at 10:33 ; Status DC Fentanyl Citrate (Fentanyl 2ml Vial) 50 mcg PRN Q2HR PRN IV PAIN Last administered on 06/10/17 10:16; Start 06/10/17 at 09:45; Stop 06/10/17 at 10:33 ; Status DC Sodium Chloride 1,000 ml @ 125 mls/hr Q8H IV Last administered on 06/10/17 23 :45; Start 06/10/17 at 09:33; Stop 06/11/17 at 09:32; Status DC Ondansetron HCl (Zofran) 4 mg PRN Q6HRS PRN IV NAUSEA/VOMITING Last administered on 06/11/17 01:34; Start 06/10/17 at 10:30; Stop 06/11/17 at 10:29 ; Status DC Prochlorperazine Edisylate (Compazine) 10 mg PRN Q6HRS PRN IV NAUSEA/VOMITING Last administered on 06/12/17 11:22; Start 06/10/17 at 10:30 Morphine Sulfate 2 mg PRN Q2HR PRN IV PAIN; Start 06/10/17 at 10:30; Stop 06/10 at 12:48; Status DC Lorazepam (Ativan) 1 mg PRN Q4HRS PRN IV ANXIETY / AGITATION; Start 06/10/17 at 10:30 Hydromorphone HCl (Dilaudid) 0.2 mg PRN Q4HRS PRN IVP PAIN Last administered on 06/10/17 11:13; Start 06/10/17 at 10:30 Metoclopramide HCl (Reglan) 10 mg TID IV Last administered on 06/12/17 08:09; Start 06/10/17 at 14:00 Morphine Sulfate 2 mg PRN Q2HR PRN IV PAIN Last administered on 06/12/17 11:21 ; Start 06/10/17 at 12:48 Sodium Chloride 1,000 ml @ 75 mls/hr [id number] IV Last administered on 08:14; Start 06/11/17 at 12:00 Acetaminophen (Tylenol) 650 mg PRN Q6HRS PRN PO FEVER; Start 06/11/17 at 11:30 Ondansetron HCl (Zofran) 4 mg PRN Q6HRS PRN IV NAUSEA/VOMITING Last administered on 06/11/17 23:28; Start 06/11/17 at 11:30 Morphine Sulfate 2 mg PRN Q2HR PRN IV PAIN; Start 06/11/17 at 11:30; Stop 06/11 at 13:55; Status DC Tramadol HCl (Ultram) 50 mg PRN Q6HRS PRN PO PAIN; Start 06/11/17 at 11:30 Hydralazine HCl (Apresoline) 10 mg PRN Q4HRS PRN IVP ELEVATED BP, SEE COMMENTS ; Start 06/11/17 at 11:30 Docusate Sodium (Colace) 100 mg PRN DAILY PRN PO CONSTIPATION; Start 06/11/17 at 11:30 Enoxaparin Sodium (Lovenox 40mg Syringe) 40 mg Q24H SQ ; Start 06/11/17 at 15:00 Amitriptyline HCl (Amitriptyline HCl) 50 mg QHS PO Last administered on 8/25/ 17at 20:45; Start 06/11/17 at 21:00 Prochlorperazine Maleate (Compazine) 10 mg Q6HRS PO ; Start 06/11/17 at 14:00 Active Scripts Active Prochlorperazine Maleate 10 Mg Tablet 1 Tab PO Q6HRS Amitriptyline Hcl 50 Mg Tablet 1 Tab PO QHS Vitals/I & O Vital Sign - Last 24 Hours 06/11/17 06/11/17 06/11/17 06/11/17 15:00 19:59 20:15 20:35 Temp 99.0 97.5 99.0 97.5 Pulse 69 67 Resp 16 18 18 B/P (MAP) 131/92 (105) 139/94 (109) Pulse Ox 99 100 O2 Delivery Room Air Room Air Room Air Room Air 06/11/17 06/11/17 06/12/17 06/12/17 23:28 23:59 03:56 03:59 Temp 97.5 97.5 Pulse 62 Resp 20 18 20 B/P (MAP) 139/96 (110) Pulse Ox 100 O2 Delivery Room Air Room Air Room Air Room Air 06/12/17 06/12/17 06/12/17 04:26 07:00 11:00 Temp 97.7 97.7 97.7 97.7 Pulse 78 68 Resp 18 18 18 B/P (MAP) 122/75 (91) 95/57 (70) Pulse Ox 96 97 O2 Delivery Room Air Room Air Room Air Intake and Output 06/11/17 06/11/17 06/12/17 14:59 22:59 06:59 Intake Total 1240 ml 480 ml Balance 1240 ml 480 ml CHEYENNE LOYOLA III DO Jun 12, 2017 13:29
[2017-06-12 15:00] VITALS: BP 118/80
[2017-06-12] MEDS: ENOXAPARIN 40 MG/0.4 ML SYRINGE. SQ SCH (15:00)
[2017-06-12] MEDS: CIPROFLOXACIN 400MG PREMIX 200 ML IV SCH ×2 (15:02→20:48)
[2017-06-12] MEDS: AMITRIPTYLINE HCL 50 MG TABLET PO SCH (20:48)
[2017-06-12] MEDS: ONDANSETRON PF 4 MG/2 ML VIAL. IV PRN (22:52)
[2017-06-12 23:15] VITALS: BP 144/101
[2017-06-13 03:52] VITALS: BP 112/72
[2017-06-13] MEDS: PROCHLORPERAZINE 5 MG TABLET. PO SCH ×2 (04:06→12:00)
[2017-06-13] MEDS: MORPHINE SULFATE 4 MG/ML DISP.SYRIN. IV PRN ×3 (05:14→12:59)
[2017-06-13] MEDS: PROCHLORPERAZINE 10 MG/2 ML VIAL. IV PRN (05:14)
[2017-06-13 06:00] LABS: BASO % 0 % (0-3); EOS % 1 % (0-3); HEMATOCRIT 35.2 % (36.0-47.0); HEMOGLOBIN 12.4 g/dL (12.0-15.5); LYMPH # 2.5 x10^3/uL (1.0-4.8); LYMPH % 34 % (24-48); MEAN CORPUSCULAR HEMOGLOBIN 31 pg (25-35); MEAN CORPUSCULAR HGB CONC 35 g/dL (31-37); MEAN CORPUSCULAR VOLUME 86 fL (79-100); MONO % 8 % (0-9); NEUT % 57 % (31-73); PLATELET COUNT 168 x10^3/uL (140-400); RED BLOOD COUNT 4.07 x10^6/uL (3.50-5.40); RED CELL DISTRIBUTION WIDTH 12.8 % (11.5-14.5); WHITE BLOOD COUNT 7.5 x10^3/uL (4.0-11.0)
[2017-06-13 06:33] LABS: CALCIUM 8.3 mg/dL (8.5-10.1); CREATININE 0.7 mg/dL (0.6-1.0); GFR 102.8; POTASSIUM 3.1 mmol/L (3.5-5.1)
[2017-06-13 07:00] VITALS: BP 97/53
[2017-06-13] MEDS: ONDANSETRON PF 4 MG/2 ML VIAL. IV PRN (07:44)
[2017-06-13] MEDS: CIPROFLOXACIN 400MG PREMIX 200 ML IV SCH (08:28)
[2017-06-13 11:00] VITALS: BP 98/58
[2017-06-13] MEDS: METOCLOPRAMIDE HCL 10 MG/2 ML VIAL. IV SCH (12:59)
[2017-06-13] MEDS ORDERED: POTASSIUM CHLORIDE 20 MEQ TABLET.ER. PO ONE (14:00)
--- NOTE | 2017-06-13 15:06 | PDOC ---
PROGRESS NOTES Chief Complaint Chief Complaint abd , N/V, with cyclic vomiting syndrome and marijuana abuse UTI PMH: anxiety h/o hypokalemia with vomiting History of Present Illness History of Present Illness Pt is sitting upright in bed, feeling better today. Able to advance diet with success, requesting to have regular diet as she is still hungry after eating mashed potatoes. Pt requesting to be discharged. Labs: K 3.1 will need to give potassium chloride prior to discharge. Vitals Vitals Vital Signs Date Time Temp Pulse Resp B/P (MAP) Pulse Ox O2 Delivery O2 Flow Rate FiO2 06/13/17 11:00 98.0 89 98/58 (71) 98 Room Air 98.0 06/13/17 05:40 14 Physical Exam General: Alert, Oriented X3, No acute distress, Other (but clearly uncomfrotable) Heart: Regular rate Lungs: Clear, Other (no wheezing, no crackles) Abdomen: Soft, No tenderness Extremities: No clubbing, No cyanosis, No edema, Normal pulses, No tenderness/ swelling Skin: No rashes, No breakdown, No significant lesion Labs LABS Laboratory Tests Test 06/13/17 05:28 White Blood Count 7.5 x10^3/uL (4.0-11.0) Red Blood Count 4.07 x10^6/uL (3.50-5.40) Hemoglobin 12.4 g/dL (12.0-15.5) Hematocrit 35.2 % (36.0-47.0) Mean Corpuscular Volume 86 fL (79-100) Mean Corpuscular Hemoglobin 31 pg (25-35) Mean Corpuscular Hemoglobin Concent 35 g/dL (31-37) Red Cell Distribution Width 12.8 % (11.5-14.5) Platelet Count 168 x10^3/uL (140-400) Neutrophils (%) (Auto) 57 % (31-73) Lymphocytes (%) (Auto) 34 % (24-48) Monocytes (%) (Auto) 8 % (0-9) Eosinophils (%) (Auto) 1 % (0-3) Basophils (%) (Auto) 0 % (0-3) Neutrophils # (Auto) 4.2 x10^3uL (1.8-7.7) Lymphocytes # (Auto) 2.5 x10^3/uL (1.0-4.8) Monocytes # (Auto) 0.6 x10^3/uL (0.0-1.1) Eosinophils # (Auto) 0.1 x10^3/uL (0.0-0.7) Basophils # (Auto) 0.0 x10^3/uL (0.0-0.2) Sodium Level 134 mmol/L (136-145) Potassium Level 3.1 mmol/L (3.5-5.1) Chloride Level 100 mmol/L (98-107) Carbon Dioxide Level 26 mmol/L (21-32) Anion Gap 8 (6-14) Blood Urea Nitrogen 3 mg/dL (7-20) Creatinine 0.7 mg/dL (0.6-1.0) Estimated GFR (Cockcroft-Gault) 102.8 Glucose Level 87 mg/dL (70-99) Calcium Level 8.3 mg/dL (8.5-10.1) Review of Systems Review of Systems Nausea and vomiting resolved c/o hunger Assessment and Plan Assessmemt and Plan Problems Medical Problems: (1) Abdominal pain Status: Acute (2) UTI (urinary tract infection) Status: Acute Cyclic vomiting syndrome - nausea and vomiting have resolved Abdominal pain Constipation - resolved Hypokalemia 1. Hypokalemia: Potassium chloride 40 mEq PO x 1 2. Continue home meds 3. Continue regular diet 4. Discharge to home 5. F/up with PCP 1 week. Problems: Comment Review of Relevant I have reviewed the following items miguel (where applicable) has been applied. Labs Laboratory Tests Test 06/12/17 03:45 06/13/17 05:28 White Blood Count 9.5 x10^3/uL (4.0-11.0) 7.5 x10^3/uL (4.0-11.0) Red Blood Count 3.77 x10^6/uL (3.50-5.40) 4.07 x10^6/uL (3.50-5.40) Hemoglobin 11.7 g/dL (12.0-15.5) 12.4 g/dL (12.0-15.5) Hematocrit 32.7 % (36.0-47.0) 35.2 % (36.0-47.0) Mean Corpuscular Volume 87 fL (79-100) 86 fL (79-100) Mean Corpuscular Hemoglobin 31 pg (25-35) 31 pg (25-35) Mean Corpuscular Hemoglobin Concent 36 g/dL (31-37) 35 g/dL (31-37) Red Cell Distribution Width 12.7 % (11.5-14.5) 12.8 % (11.5-14.5) Platelet Count 167 x10^3/uL (140-400) 168 x10^3/uL (140-400) Neutrophils (%) (Auto) 64 % (31-73) 57 % (31-73) Lymphocytes (%) (Auto) 30 % (24-48) 34 % (24-48) Monocytes (%) (Auto) 5 % (0-9) 8 % (0-9) Eosinophils (%) (Auto) 1 % (0-3) 1 % (0-3) Basophils (%) (Auto) 0 % (0-3) 0 % (0-3) Neutrophils # (Auto) 6.1 x10^3uL (1.8-7.7) 4.2 x10^3uL (1.8-7.7) Lymphocytes # (Auto) 2.8 x10^3/uL (1.0-4.8) 2.5 x10^3/uL (1.0-4.8) Monocytes # (Auto) 0.5 x10^3/uL (0.0-1.1) 0.6 x10^3/uL (0.0-1.1) Eosinophils # (Auto) 0.1 x10^3/uL (0.0-0.7) 0.1 x10^3/uL (0.0-0.7) Basophils # (Auto) 0.0 x10^3/uL (0.0-0.2) 0.0 x10^3/uL (0.0-0.2) Sodium Level 137 mmol/L (136-145) 134 mmol/L (136-145) Potassium Level 3.6 mmol/L (3.5-5.1) 3.1 mmol/L (3.5-5.1) Chloride Level 102 mmol/L (98-107) 100 mmol/L (98-107) Carbon Dioxide Level 24 mmol/L (21-32) 26 mmol/L (21-32) Anion Gap 11 (6-14) 8 (6-14) Blood Urea Nitrogen 6 mg/dL (7-20) 3 mg/dL (7-20) Creatinine 0.5 mg/dL (0.6-1.0) 0.7 mg/dL (0.6-1.0) Estimated GFR (Cockcroft-Gault) 151.6 102.8 Glucose Level 84 mg/dL (70-99) 87 mg/dL (70-99) Calcium Level 8.5 mg/dL (8.5-10.1) 8.3 mg/dL (8.5-10.1) Laboratory Tests Test 06/13/17 05:28 White Blood Count 7.5 x10^3/uL (4.0-11.0) Red Blood Count 4.07 x10^6/uL (3.50-5.40) Hemoglobin 12.4 g/dL (12.0-15.5) Hematocrit 35.2 % (36.0-47.0) Mean Corpuscular Volume 86 fL (79-100) Mean Corpuscular Hemoglobin 31 pg (25-35) Mean Corpuscular Hemoglobin Concent 35 g/dL (31-37) Red Cell Distribution Width 12.8 % (11.5-14.5) Platelet Count 168 x10^3/uL (140-400) Neutrophils (%) (Auto) 57 % (31-73) Lymphocytes (%) (Auto) 34 % (24-48) Monocytes (%) (Auto) 8 % (0-9) Eosinophils (%) (Auto) 1 % (0-3) Basophils (%) (Auto) 0 % (0-3) Neutrophils # (Auto) 4.2 x10^3uL (1.8-7.7) Lymphocytes # (Auto) 2.5 x10^3/uL (1.0-4.8) Monocytes # (Auto) 0.6 x10^3/uL (0.0-1.1) Eosinophils # (Auto) 0.1 x10^3/uL (0.0-0.7) Basophils # (Auto) 0.0 x10^3/uL (0.0-0.2) Sodium Level 134 mmol/L (136-145) Potassium Level 3.1 mmol/L (3.5-5.1) Chloride Level 100 mmol/L (98-107) Carbon Dioxide Level 26 mmol/L (21-32) Anion Gap 8 (6-14) Blood Urea Nitrogen 3 mg/dL (7-20) Creatinine 0.7 mg/dL (0.6-1.0) Estimated GFR (Cockcroft-Gault) 102.8 Glucose Level 87 mg/dL (70-99) Calcium Level 8.3 mg/dL (8.5-10.1) Microbiology 06/10/17 Urine Culture - Final, Complete 06/10/17 Urine Culture Result 1 (JORGE) - Final, Complete Medications Current Medications Sodium Chloride 1,000 ml @ 1,000 mls/hr 1X ONCE IV Last administered on 08:02; Start 06/10/17 at 08:00; Stop 06/10/17 at 08:59; Status DC Dicyclomine HCl (Bentyl) 10 mg 1X ONCE IM Last administered on 06/10/17 08:03 ; Start 06/10/17 at 08:00; Stop 06/10/17 at 08:01; Status DC Promethazine HCl (Phenergan Im) 25 mg 1X ONCE IM Last administered on 08:02; Start 06/10/17 at 08:00; Stop 06/10/17 at 08:01; Status DC Ondansetron HCl (Zofran) 4 mg PRN Q8HRS PRN IV NAUSEA/VOMITING Last administered on 06/10/17 10:16; Start 06/10/17 at 09:45; Stop 06/10/17 at 10:33 ; Status DC Fentanyl Citrate (Fentanyl 2ml Vial) 50 mcg PRN Q2HR PRN IV PAIN Last administered on 06/10/17 10:16; Start 06/10/17 at 09:45; Stop 06/10/17 at 10:33 ; Status DC Sodium Chloride 1,000 ml @ 125 mls/hr Q8H IV Last administered on 06/10/17 23 :45; Start 06/10/17 at 09:33; Stop 06/11/17 at 09:32; Status DC Ondansetron HCl (Zofran) 4 mg PRN Q6HRS PRN IV NAUSEA/VOMITING Last administered on 06/11/17 01:34; Start 06/10/17 at 10:30; Stop 06/11/17 at 10:29 ; Status DC Prochlorperazine Edisylate (Compazine) 10 mg PRN Q6HRS PRN IV NAUSEA/VOMITING Last administered on 06/13/17 05:14; Start 06/10/17 at 10:30; Stop 06/13/17 at 14:31; Status DC Morphine Sulfate 2 mg PRN Q2HR PRN IV PAIN; Start 06/10/17 at 10:30; Stop 06/10 at 12:48; Status DC Lorazepam (Ativan) 1 mg PRN Q4HRS PRN IV ANXIETY / AGITATION Last administered on 06/12/17 22:53; Start 06/10/17 at 10:30; Stop 06/13/17 at 14:31; Status DC Hydromorphone HCl (Dilaudid) 0.2 mg PRN Q4HRS PRN IVP PAIN Last administered on 06/10/17 11:13; Start 06/10/17 at 10:30; Stop 06/13/17 at 14:31; Status DC Metoclopramide HCl (Reglan) 10 mg TID IV Last administered on 06/13/17 12:59; Start 06/10/17 at 14:00; Stop 06/13/17 at 14:31; Status DC Morphine Sulfate 2 mg PRN Q2HR PRN IV PAIN Last administered on 06/13/17 12:59 ; Start 06/10/17 at 12:48; Stop 06/13/17 at 14:31; Status DC Sodium Chloride 1,000 ml @ 75 mls/hr [id number] IV Last administered on 20:49; Start 06/11/17 at 12:00; Stop 06/13/17 at 14:31; Status DC Acetaminophen (Tylenol) 650 mg PRN Q6HRS PRN PO FEVER; Start 06/11/17 at 11:30 ; Stop 06/13/17 at 14:31; Status DC Ondansetron HCl (Zofran) 4 mg PRN Q6HRS PRN IV NAUSEA/VOMITING Last administered on 06/13/17 07:44; Start 06/11/17 at 11:30; Stop 06/13/17 at 14:31 ; Status DC Morphine Sulfate 2 mg PRN Q2HR PRN IV PAIN; Start 06/11/17 at 11:30; Stop 06/11 at 13:55; Status DC Tramadol HCl (Ultram) 50 mg PRN Q6HRS PRN PO PAIN; Start 06/11/17 at 11:30; Stop 06/13/17 at 14:31; Status DC Hydralazine HCl (Apresoline) 10 mg PRN Q4HRS PRN IVP ELEVATED BP, SEE COMMENTS ; Start 06/11/17 at 11:30; Stop 06/13/17 at 14:31; Status DC Docusate Sodium (Colace) 100 mg PRN DAILY PRN PO CONSTIPATION; Start 06/11/17 at 11:30; Stop 06/13/17 at 14:31; Status DC Enoxaparin Sodium (Lovenox 40mg Syringe) 40 mg Q24H SQ ; Start 06/11/17 at 15:00 ; Stop 06/13/17 at 14:31; Status DC Amitriptyline HCl (Amitriptyline HCl) 50 mg QHS PO Last administered on 20:48; Start 06/11/17 at 21:00; Stop 06/13/17 at 14:31; Status DC Prochlorperazine Maleate (Compazine) 10 mg Q6HRS PO ; Start 06/11/17 at 14:00; Stop 06/13/17 at 14:31; Status DC Potassium Chloride (Klor-Con) 40 meq 1X ONCE PO Last administered on 14:09; Start 06/13/17 at 14:00; Stop 06/13/17 at 14:01; Status DC Active Scripts Active Prochlorperazine Maleate 10 Mg Tablet 1 Tab PO Q6HRS Amitriptyline Hcl 50 Mg Tablet 1 Tab PO QHS Vitals/I & O Vital Sign - Last 24 Hours 06/12/17 06/12/17 06/12/17 06/12/17 19:25 20:49 22:52 23:15 Temp 98.8 98.8 Pulse 99 Resp 16 16 18 B/P (MAP) 144/101 (115) Pulse Ox 99 99 98 O2 Delivery Room Air Room Air Room Air Room Air 06/13/17 06/13/17 06/13/17 06/13/17 03:52 05:14 05:40 07:00 Temp 99.0 97.9 99.0 97.9 Pulse 77 88 Resp 18 16 14 B/P (MAP) 112/72 (85) 97/53 (68) Pulse Ox 98 98 98 96 O2 Delivery Room Air Room Air Room Air Room Air 06/13/17 11:00 Temp 98.0 98.0 Pulse 89 B/P (MAP) 98/58 (71) Pulse Ox 98 O2 Delivery Room Air Intake and Output 06/12/17 06/12/17 06/13/17 15:00 23:00 07:00 Intake Total 2200 ml 360 ml Balance 2200 ml 360 ml CHEYENNE LOYOLA III DO Jun 13, 2017 15:06
== END 2017-06-13 14:31 | disposition home or self-care (01) ==
LOC: ER 07:31 → INTOOBSV 09:32 → 5 SOUTH 09:32
PROVIDERS: ADMIT Internal Medicine; ATTEND Internal Medicine
DX: G43.A0 Cyclical vomiting, in migraine, not intractable (principal); R00.0 Tachycardia, unspecified; R65.10 Systemic inflammatory response syndrome (SIRS) of non-infectious origin without acute organ dysfunction; F41.9 Anxiety disorder, unspecified; F12.10 Cannabis abuse, uncomplicated; K59.00 Constipation, unspecified; E87.6 Hypokalemia; N39.0 Urinary tract infection, site not specified; Z83.3 Family history of diabetes mellitus; Z91.19 Patient's noncompliance with other medical treatment and regimen
CPT/HCPCS: 36415; 74022; 80048; 80053; 80307; 81001; 81025; 85007; 85025; 87086; 96361; 96372; 96374; 96375; 96376; 99285; G0378; J0500; J0744; J0780; J1170; J2060; J2270; J2405; J2550; J2765; J3010; J7030; G0379; G0479

== ENCOUNTER 2017-06-16 14:56 | Emergency (ER) | payer SELFPAY ==
--- NOTE | 2017-06-16 15:10 | PHYS DOC ---
Past Medical History Past Medical History: Anxiety, Other Additional Past Medical Histor: cyclic vomiting syndrome Past Surgical History: Cholecystectomy Alcohol Use: None Drug Use: Marijuana Adult General Chief Complaint Chief Complaint: NAUSEA/VOMITING/DIARRHA HPI HPI Patient is a 22 year old female who presents with nausea vomiting diarrhea. She states it started around 5 AM this morning and she has diffuse abdominal pain she states is exact same thing happens every time with her cyclic vomiting diagnoses that she's had. She denies any blood in her stools or vomit. She states she's been prescribed amitriptyline in the past but can't afford the $11 for the prescription and actually states she doesn't have a prescription condition can't afford to see the doctor. She states that she hasn' t had a GI doctor either she can afford the office visit. Review of Systems Review of Systems Constitutional: Denies fever or chills [] Eyes: Denies change in visual acuity, redness, or eye pain [] HENT: Denies nasal congestion or sore throat [] Respiratory: Denies cough or shortness of breath [] Cardiovascular: No additional information not addressed in HPI [] GI: Positive for abdominal pain, nausea vomiting and diarrhea. Denies any blood in her stools : Denies dysuria or hematuria [] Musculoskeletal: Denies back pain or joint pain [] Integument: Denies rash or skin lesions [] Neurologic: Denies headache, focal weakness or sensory changes [] Endocrine: Denies polyuria or polydipsia [] Current Medications Current Medications Current Medications Medications (Trade) Dose Ordered Sig/Arnaldo Start Time Stop Time Status Last Admin Dose Admin Famotidine (Pepcid) 20 mg 1X ONCE 06/16/17 15:45 06/16/17 15:46 DC 06/16/17 15:55 20 MG Hydromorphone HCl (Dilaudid) 1 mg PRN Q15MIN PRN 06/16/17 15:45 06/17/17 15:44 06/16/17 17:19 1 MG Ondansetron HCl (Zofran) 4 mg 1X ONCE 06/16/17 17:15 06/16/17 17:16 DC 06/16/17 17:15 4 MG Sodium Chloride 1,000 ml @ 1,000 mls/hr 1X ONCE 06/16/17 17:15 06/16/17 18:14 DC 06/16/17 17:14 1,000 MLS/HR Allergies Allergies Allergies Coded Allergies Type Severity Reaction Last Updated Verified coconut Allergy Severe Anaphylaxis 01/22/17 Yes Physical Exam Physical Exam Constitutional: Well developed, well nourished, no acute distress, non-toxic appearance. [] HENT: Normocephalic, atraumatic, bilateral external ears normal, oropharynx moist, no oral exudates, nose normal. [] Eyes: PERRLA, EOMI, conjunctiva normal, no discharge. [] Neck: Normal range of motion, no tenderness, supple, no stridor. [] Cardiovascular:Heart rate regular rhythm, no murmur [] Lungs & Thorax: Bilateral breath sounds clear to auscultation [] Abdomen: Bowel sounds normal, soft, mild tenderness palpation diffusely, no rebound or guarding, no masses, no pulsatile masses. [] Skin: Warm, dry, no erythema, no rash. [] Back: No tenderness, no CVA tenderness. [] Extremities: No tenderness, no cyanosis, no clubbing, ROM intact, no edema. [] Neurologic: Alert and oriented X 3, normal motor function, normal sensory function, no focal deficits noted. [] Psychologic: Affect normal, judgement normal, mood normal. [] Current Patient Data Vital Signs Vital Signs Date Time Temp Pulse Resp B/P (MAP) Pulse Ox O2 Delivery O2 Flow Rate FiO2 06/16/17 18:45 94 18 98/53 (68) 95 Room Air 06/16/17 15:09 97.4 97.4 Lab Values Laboratory Tests Test 06/16/17 14:12 06/16/17 15:00 06/16/17 15:45 POC Urine HCG, Qualitative Hcg negative (Negative) Urine Collection Type Unknown Urine Color Yellow Urine Clarity Cloudy Urine pH 8.0 Urine Specific [place] 1.025 Urine Protein 30 mg/dL (NEG-TRACE) Urine Glucose (UA) Negative mg/dL (NEG) Urine Ketones (Stick) >=80 mg/dL (NEG) Urine Blood Negative (NEG) Urine Nitrite Negative (NEG) Urine Bilirubin Negative (NEG) Urine Urobilinogen Dipstick 0.2 mg/dL (0.2 mg/dL) Urine Leukocyte Esterase Negative (NEG) Urine RBC 0 /HPF (0-2) Urine WBC 0 /HPF (0-4) Urine Squamous Epithelial Cells Mod /LPF Urine Amorphous Sediment Present /HPF Urine Bacteria Few /HPF (0-FEW) Urine Mucus Marked /LPF Urine Opiates Screen Neg (NEG) Urine Methadone Screen Neg (NEG) Urine Barbiturates Neg (NEG) Urine Phencyclidine Screen Neg (NEG) Urine Amphetamine/Methamphetamine Neg (NEG) Urine Benzodiazepines Screen Neg (NEG) Urine Cocaine Screen Neg (NEG) Urine Cannabinoids Screen Pos (NEG) Urine Ethyl Alcohol Neg (NEG) White Blood Count 10.2 x10^3/uL (4.0-11.0) Red Blood Count 4.71 x10^6/uL (3.50-5.40) Hemoglobin 14.2 g/dL (12.0-15.5) Hematocrit 41.5 % (36.0-47.0) Mean Corpuscular Volume 88 fL (79-100) Mean Corpuscular Hemoglobin 30 pg (25-35) Mean Corpuscular Hemoglobin Concent 34 g/dL (31-37) Red Cell Distribution Width 13.2 % (11.5-14.5) Platelet Count 257 x10^3/uL (140-400) Neutrophils (%) (Auto) 91 % (31-73) H Lymphocytes (%) (Auto) 7 % (24-48) L Monocytes (%) (Auto) 2 % (0-9) Eosinophils (%) (Auto) 0 % (0-3) Basophils (%) (Auto) 0 % (0-3) Neutrophils # (Auto) 9.3 x10^3uL (1.8-7.7) H Lymphocytes # (Auto) 0.7 x10^3/uL (1.0-4.8) L Monocytes # (Auto) 0.2 x10^3/uL (0.0-1.1) Eosinophils # (Auto) 0.0 x10^3/uL (0.0-0.7) Basophils # (Auto) 0.0 x10^3/uL (0.0-0.2) Segmented Neutrophils % 92 % (35-66) H Lymphocytes % 7 % (24-48) L Monocytes % 1 % (0-10) Platelet Estimate Adequate (ADEQUATE) Sodium Level 137 mmol/L (136-145) Potassium Level 3.7 mmol/L (3.5-5.1) Chloride Level 99 mmol/L (98-107) Carbon Dioxide Level 21 mmol/L (21-32) Anion Gap 17 (6-14) H Blood Urea Nitrogen 8 mg/dL (7-20) Creatinine 0.7 mg/dL (0.6-1.0) Estimated GFR (Cockcroft-Gault) 102.8 Glucose Level 141 mg/dL (70-99) H Calcium Level 10.2 mg/dL (8.5-10.1) H Total Bilirubin 0.6 mg/dL (0.2-1.0) Direct Bilirubin 0.1 mg/dL (0.0-0.2) Aspartate Amino Transferase (AST) 19 U/L (15-37) Alanine Aminotransferase (ALT) 22 U/L (14-59) Alkaline Phosphatase 66 U/L (46-116) Creatine Kinase 55 U/L (26-192) Creatine Kinase MB (Mass) < 0.5 ng/mL (0.0-3.6) Creatine Kinase MB Relative Index % (0-4) Total Protein 8.4 g/dL (6.4-8.2) H Albumin 4.6 g/dL (3.4-5.0) Lipase 112 U/L (73-393) Serum Test, Qualitative Negative (NEG) Laboratory Tests 06/16/17 15:45 Laboratory Tests 06/16/17 15:45 EKG EKG [] Radiology/Procedures Radiology/Procedures [] Impressions: Nausea vomiting Abdominal pain Course & Med Decision Making Course & Med Decision Making Pertinent Labs and Imaging studies reviewed. (See chart for details) Patient received 2 L of fluids, and Dilaudid, Zofran and her pain and nausea vomiting has resolved. She is requesting we discharged home. She does have ketones in her urine and an anion gap, I suspect these have closed with her 2 liters of fluids since her symptoms are better. She is requesting we discharged home. Return precautions given. She is agreeable plan being discharged in stable condition this time. Dragon Disclaimer Dragon Disclaimer This electronic medical record was generated, in whole or in part, using a voice recognition dictation system. Departure Departure Impression: Primary Impression: Cyclical vomiting Disposition: HOME, SELF-CARE Condition: STABLE Referrals: NO PCP (PCP) Patient Instructions: Nausea and Vomiting, [id number] Additional Instructions: You were seen today for your nausea and vomiting. Your symptoms have resolved with IV fluids and antinausea in addition to pain meds. Your being discharged home. If her symptoms return, you have any pain or other concerns please return back to ER. Problem Qualifiers Primary Impression: Cyclical vomiting Vomiting Intractability: non-intractable Nausea presence: with nausea Qualified Codes: G43.A0 - Cyclical vomiting, not intractable NATALIE ODTY MD Jun 16, 2017 15:10
[2017-06-16] MEDS ORDERED: IV NORMAL SALINE 1000ML BAG 1,000 ML IV SCH (15:12)
[2017-06-16 15:38] LABS: BILIRUBIN,URINE NEGATIVE (NEG); GLUCOSE,URINE NEGATIVE (NEG); NITRITE,URINE NEGATIVE (NEG); PROTEIN,URINE 30 mg/dL (NEG-TRACE); UROBILINOGEN,URINE 0.2 mg/dL (0.2 mg/dL)
[2017-06-16 15:39] LABS: BARBITURATES NEG (NEG); BENZODIAZEPINES NEG (NEG); CANNABINOIDS POS (NEG); COCAINE NEG (NEG); METHADONE NEG (NEG); OPIATES NEG (NEG); PHENCYCLIDINE NEG (NEG)
[2017-06-16] MEDS ORDERED: FAMOTIDINE 20 MG/2 ML VIAL IVP ONE (15:45)
[2017-06-16] MEDS ORDERED: ONDANSETRON PF 4 MG/2 ML VIAL. IV ONE ×2 (15:45→17:15)
[2017-06-16 15:52] LABS: BASO % 0 % (0-3); EOS % 0 % (0-3); HEMATOCRIT 41.5 % (36.0-47.0); HEMOGLOBIN 14.2 g/dL (12.0-15.5); LYMPH # 0.7 x10^3/uL (1.0-4.8); LYMPH % 7 % (24-48); MEAN CORPUSCULAR HEMOGLOBIN 30 pg (25-35); MEAN CORPUSCULAR HGB CONC 34 g/dL (31-37); MEAN CORPUSCULAR VOLUME 88 fL (79-100); MONO % 2 % (0-9); NEUT % 91 % (31-73); PLATELET COUNT 257 x10^3/uL (140-400); RED BLOOD COUNT 4.71 x10^6/uL (3.50-5.40); RED CELL DISTRIBUTION WIDTH 13.2 % (11.5-14.5); WHITE BLOOD COUNT 10.2 x10^3/uL (4.0-11.0)
[2017-06-16 15:54] LABS: BACTERIA,URINE FEW /HPF (0-FEW); RBC,URINE 0 /HPF (0-2); SQUAMOUS EPITHELIAL CELL,UR MOD /LPF; WBC,URINE 0 /HPF (0-4)
[2017-06-16] MEDS: HYDROmorphone 2 MG/ML VIAL IV/SQ PRN ×2 (15:54→17:19)
[2017-06-16 16:16] LABS: NEG OBC SER NEG; POS OBC SER POS
[2017-06-16 16:24] LABS: PLT ESTIMATE ADEQUATE (ADEQUATE)
[2017-06-16 16:33] LABS: CALCIUM 10.2 mg/dL (8.5-10.1); CREATININE 0.7 mg/dL (0.6-1.0); GFR 102.8; POTASSIUM 3.7 mmol/L (3.5-5.1)
[2017-06-16 16:37] LABS: CKMB MASS < 0.5 ng/mL (0.0-3.6); CREATINE KINASE 55 U/L (26-192)
[2017-06-16 16:39] LABS: ALBUMIN 4.6 g/dL (3.4-5.0); DIRECT BILIRUBIN 0.1 mg/dL (0.0-0.2); TOTAL BILIRUBIN 0.6 mg/dL (0.2-1.0); TOTAL PROTEIN 8.4 g/dL (6.4-8.2)
[2017-06-16] MEDS ORDERED: IV NORMAL SALINE 1000ML BAG 1,000 ML IV ONE (17:15)
[2017-06-16 18:45] VITALS: BP 98/53
== END 2017-06-16 19:15 | disposition home or self-care (01) ==
LOC: ER 14:56
DX: G43.A0 Cyclical vomiting, in migraine, not intractable (principal); R19.7 Diarrhea, unspecified; R10.84 Generalized abdominal pain; F41.9 Anxiety disorder, unspecified; Z90.49 Acquired absence of other specified parts of digestive tract; Z91.018 Allergy to other foods
CPT/HCPCS: 36415; 80048; 80076; 80307; 81001; 81025; 82553; 83690; 84703; 85007; 85025; 96361; 96374; 96375; 96376; 99284; J1170; J2405; J7030; S0028; G0479

== ENCOUNTER 2017-06-18 06:58 | Emergency (ER) | payer SELFPAY ==
[~2017-06-18] VITALS: Ht 162.6 cm; Wt 62.1 kg
[2017-06-18] MEDS ORDERED: IV NORMAL SALINE 1000ML BAG 1,000 ML IV SCH (07:14)
[2017-06-18] MEDS ORDERED: ONDANSETRON PF 4 MG/2 ML VIAL. IV ONE (07:15)
--- NOTE | 2017-06-18 07:30 | PHYS DOC ---
Past Medical History Past Medical History: Anxiety, Other Additional Past Medical Histor: cyclic vomiting syndrome, PANIC ATTACKS Past Surgical History: Cholecystectomy Alcohol Use: None Drug Use: Marijuana Adult General Chief Complaint Chief Complaint: NAUSEA/VOMITING/DIARRHA HPI HPI 22-year-old female with a history of cyclic vomiting syndrome presenting to the emergency department today with epigastric abdominal pain that started 24 hours ago. The pain is mild intermittent nonradiating without alleviating factors. It is associated with nausea with vomiting. The vomitus is nonbloody and nonbilious. She also has had loose stools without any constipation. She denies any fevers or chills at home. She denies being . Review of systems is negative for vaginal bleeding recent exposure to STIs, vaginal discharge changes, fevers chills chest pain or shortness of breath. All other review of systems is negative unless otherwise noted in history of present illness. ED course: 22-year-old female presenting to the emergency department with nausea vomiting and epigastric abdominal pain. Triage vital signs. Pertinent physical examination findings shows the patient to be mildly anxious appearing otherwise not in any distress. Abdomen is soft and nontender. Negative McBurney' s point. Negative Azevedo sign. Lungs are clear to auscultation. The remainder the examination is unremarkable. Patient was given IV fluids nausea and pain medications in the emergency department. On work and urinalysis obtained. The patient was then discharged home in stable condition to follow up with their primary care physician over the next 2-3 days. They were to return if their symptoms worsened or if they were concerned for any reason. [id number] discharge instructions and return precautions were given. Patient's questions were answered to their satisfaction. Patient is comfortable plan. Review of Systems Review of Systems SEE ABOVE. Current Medications Current Medications Current Medications Medications (Trade) Dose Ordered Sig/Arnaldo Start Time Stop Time Status Last Admin Dose Admin Hydromorphone HCl (Dilaudid) 0.5 mg PRN Q15MIN PRN 06/18/17 07:15 06/19/17 07:14 06/18/17 08:18 0.5 MG Metoclopramide HCl (Reglan) 10 mg 1X ONCE 06/18/17 08:30 06/18/17 08:31 DC 06/18/17 08:21 10 MG Ondansetron HCl (Zofran) 4 mg 1X ONCE 06/18/17 07:15 06/18/17 07:17 DC 06/18/17 07:44 4 MG Sodium Chloride 1,000 ml @ 1,000 mls/hr Q1H 06/18/17 07:14 06/18/17 08:13 DC 06/18/17 07:41 1,000 MLS/HR Allergies Allergies Allergies Coded Allergies Type Severity Reaction Last Updated Verified coconut Allergy Severe Anaphylaxis 01/22/17 Yes Physical Exam Physical Exam SEE ABOVE Constitutional: Well developed, well nourished, no acute distress, non-toxic appearance. [] HENT: Normocephalic, atraumatic, bilateral external ears normal, oropharynx moist, no oral exudates, nose normal. [] Eyes: PERRLA, EOMI, conjunctiva normal, no discharge. [] Neck: Normal range of motion, no tenderness, supple, no stridor. [] Cardiovascular:Heart rate regular rhythm, no murmur [] Lungs & Thorax: Bilateral breath sounds clear to auscultation [] Abdomen: Soft nontender abdomen without rebound tenderness or guarding present. Negative McBurneys point. Negative Azevedo sign. No ecchymosis present. Skin: Warm, dry, no erythema, no rash. [] Back: No tenderness, no CVA tenderness. [] Extremities: No tenderness, no cyanosis, no clubbing, ROM intact, no edema. [] Neurologic: Alert and oriented X 3, normal motor function, normal sensory function, no focal deficits noted. [] Psychologic: Affect normal, judgement normal, mood normal. [] Current Patient Data Vital Signs Vital Signs Date Time Temp Pulse Resp B/P (MAP) Pulse Ox O2 Delivery O2 Flow Rate FiO2 06/18/17 08:18 18 98 Room Air 06/18/17 07:00 99.0 99 135/82 (99) 99.0 Lab Values Laboratory Tests Test 06/18/17 06:42 06/18/17 07:31 06/18/17 08:00 POC Urine HCG, Qualitative Hcg negative (Negative) Urine Collection Type Void Urine Color Yellow Urine Clarity Clear Urine pH 6.5 Urine Specific [place] 1.015 Urine Protein Negative mg/dL (NEG-TRACE) Urine Glucose (UA) Negative mg/dL (NEG) Urine Ketones (Stick) Negative mg/dL (NEG) Urine Blood Negative (NEG) Urine Nitrite Negative (NEG) Urine Bilirubin Negative (NEG) Urine Urobilinogen Dipstick 0.2 mg/dL (0.2 mg/dL) Urine Leukocyte Esterase Negative (NEG) Urine RBC Occ /HPF (0-2) Urine WBC 5-10 /HPF (0-4) Urine Squamous Epithelial Cells Mod /LPF Urine Bacteria Few /HPF (0-FEW) Urine Mucus Mod /LPF White Blood Count 9.4 x10^3/uL (4.0-11.0) Red Blood Count 4.10 x10^6/uL (3.50-5.40) Hemoglobin 12.4 g/dL (12.0-15.5) Hematocrit 36.7 % (36.0-47.0) Mean Corpuscular Volume 89 fL (79-100) Mean Corpuscular Hemoglobin 30 pg (25-35) Mean Corpuscular Hemoglobin Concent 34 g/dL (31-37) Red Cell Distribution Width 13.3 % (11.5-14.5) Platelet Count 180 x10^3/uL (140-400) Neutrophils (%) (Auto) 74 % (31-73) H Lymphocytes (%) (Auto) 19 % (24-48) L Monocytes (%) (Auto) 6 % (0-9) Eosinophils (%) (Auto) 1 % (0-3) Basophils (%) (Auto) 0 % (0-3) Neutrophils # (Auto) 6.9 x10^3uL (1.8-7.7) Lymphocytes # (Auto) 1.8 x10^3/uL (1.0-4.8) Monocytes # (Auto) 0.6 x10^3/uL (0.0-1.1) Eosinophils # (Auto) 0.1 x10^3/uL (0.0-0.7) Basophils # (Auto) 0.0 x10^3/uL (0.0-0.2) Sodium Level 139 mmol/L (136-145) Potassium Level 3.6 mmol/L (3.5-5.1) Chloride Level 102 mmol/L (98-107) Carbon Dioxide Level 27 mmol/L (21-32) Anion Gap 10 (6-14) Blood Urea Nitrogen 8 mg/dL (7-20) Creatinine 0.8 mg/dL (0.6-1.0) Estimated GFR (Cockcroft-Gault) 88.1 BUN/Creatinine Ratio 10 (6-20) Glucose Level 96 mg/dL (70-99) Calcium Level 8.7 mg/dL (8.5-10.1) Total Bilirubin 0.3 mg/dL (0.2-1.0) Aspartate Amino Transferase (AST) 13 U/L (15-37) L Alanine Aminotransferase (ALT) 21 U/L (14-59) Alkaline Phosphatase 53 U/L (46-116) Total Protein 6.9 g/dL (6.4-8.2) Albumin 3.7 g/dL (3.4-5.0) Albumin/Globulin Ratio 1.2 (1.0-1.7) Lipase 158 U/L (73-393) Laboratory Tests 06/18/17 08:00 Laboratory Tests 06/18/17 08:00 EKG EKG [] Radiology/Procedures Radiology/Procedures [] Course & Med Decision Making Course & Med Decision Making Pertinent Labs and Imaging studies reviewed. (See chart for details) [] Dragon Disclaimer Dragon Disclaimer This electronic medical record was generated, in whole or in part, using a voice recognition dictation system. Departure Departure Impression: Primary Impression: Abdominal pain Additional Impression: Nausea & vomiting Disposition: 01 HOME, SELF-CARE Condition: STABLE Referrals: NO PCP (PCP) DEACON ARREDONDO MD Patient Instructions: Abdominal Pain (Nonspecific) Additional Instructions: Thank you for allowing us to participate in your care today. Followup with your primary care physician in 3 days if your symptoms do not improve. Call your Primary Doctor tomorrow and inform them of your visit today. If you do not have a primary care provider you can ask for a list of our primary care providers. Return to the emergency department you have any new or concerning findings. This should be evaluated by the primary care physician and any necessary consulting services for continued management within a few days after discharge. Return to emergency room if you have any new or concerning symptoms including but not limited to fever, chills, nausea, vomiting, intractable pain, any new rashes, chest pain, shortness of air, uncontrolled bleeding, difficulty breathing, and/or vision loss. Scripts Metoclopramide Hcl (REGLAN) 10 Mg Tablet 1 TAB PO TID, #12 TAB Prov: PIYUSH RUTLEDGE MD 06/18/17 Problem Qualifiers PIYUSH RUTLEDGE MD Jun 18, 2017 07:30
[2017-06-18 07:46] LABS: BILIRUBIN,URINE NEGATIVE (NEG); GLUCOSE,URINE NEGATIVE (NEG); NITRITE,URINE NEGATIVE (NEG); PH,URINE 6.5; PROTEIN,URINE NEGATIVE (NEG-TRACE); UROBILINOGEN,URINE 0.2 mg/dL (0.2 mg/dL)
[2017-06-18] MEDS: HYDROmorphone 2 MG/ML VIAL IV/SQ PRN ×2 (07:46→08:18)
[2017-06-18 07:50] LABS: SQUAMOUS EPITHELIAL CELL,UR MOD /LPF
[2017-06-18 07:51] LABS: BACTERIA,URINE FEW /HPF (0-FEW); RBC,URINE OCC /HPF (0-2)
[2017-06-18 08:17] LABS: BASO % 0 % (0-3); EOS % 1 % (0-3); HEMATOCRIT 36.7 % (36.0-47.0); HEMOGLOBIN 12.4 g/dL (12.0-15.5); LYMPH # 1.8 x10^3/uL (1.0-4.8); LYMPH % 19 % (24-48); MEAN CORPUSCULAR HEMOGLOBIN 30 pg (25-35); MEAN CORPUSCULAR HGB CONC 34 g/dL (31-37); MEAN CORPUSCULAR VOLUME 89 fL (79-100); MONO % 6 % (0-9); NEUT % 74 % (31-73); PLATELET COUNT 180 x10^3/uL (140-400); RED CELL DISTRIBUTION WIDTH 13.3 % (11.5-14.5); WHITE BLOOD COUNT 9.4 x10^3/uL (4.0-11.0)
[2017-06-18 08:24] LABS: CALCIUM 8.7 mg/dL (8.5-10.1); CREATININE 0.8 mg/dL (0.6-1.0); GFR 88.1; POTASSIUM 3.6 mmol/L (3.5-5.1)
[2017-06-18 08:30] LABS: ALBUMIN 3.7 g/dL (3.4-5.0); ALBUMIN/GLOBULIN RATIO 1.2 (1.0-1.7); TOTAL BILIRUBIN 0.3 mg/dL (0.2-1.0); TOTAL PROTEIN 6.9 g/dL (6.4-8.2)
[2017-06-18] MEDS ORDERED: METOCLOPRAMIDE HCL 10 MG/2 ML VIAL. IV ONE (08:30)
[2017-06-18] MEDS ORDERED: METO10TA81 PO (09:28)
[2017-06-18 09:30] VITALS: BP 99/68
== END 2017-06-18 09:50 | disposition home or self-care (01) ==
LOC: ER 06:58
DX: R10.13 Epigastric pain (principal); R11.2 Nausea with vomiting, unspecified; F41.0 Panic disorder [episodic paroxysmal anxiety]; Z91.018 Allergy to other foods
CPT/HCPCS: 36415; 80053; 81001; 81025; 83690; 85025; 87086; 96361; 96374; 96375; 96376; 99285; J1170; J2405; J2765; J7030

== ENCOUNTER 2017-07-02 06:38 | Observation (INO) | payer SELFPAY ==
[~2017-07-02] VITALS: Ht 162.6 cm; Wt 65.9 kg
[~2017-07-02 06:38] MED LIST changes: +METO10TA81 PO
--- NOTE | 2017-07-02 06:48 | PHYS DOC ---
Past Medical History Past Medical History: Anxiety, Other Additional Past Medical Histor: cyclic vomiting syndrome, PANIC ATTACKS Past Surgical History: Cholecystectomy Alcohol Use: None Drug Use: Marijuana Adult General Chief Complaint Chief Complaint: NAUSEA/VOMITING/DIARRHA HPI HPI Patient is a 22 year old female who presents with nausea vomiting diarrhea. She states this is her normal cyclic vomiting syndrome symptoms but her pain is a little worse. She states she has crampy diffuse abdominal pain. She denies any fevers or chills. She states started about 24 hours ago. She states she is out of all of her medications but she hasn't seen her primary care physician at [facility] to get refills. She does present with active vomiting. Review of Systems Review of Systems Constitutional: Denies fever or chills [] Eyes: Denies change in visual acuity, redness, or eye pain [] HENT: Denies nasal congestion or sore throat [] Respiratory: Denies cough or shortness of breath [] Cardiovascular: No additional information not addressed in HPI [] GI: Positive for abdominal pain, nausea, vomiting, diarrhea, denies any bloody stools : Denies dysuria or hematuria [] Musculoskeletal: Denies back pain or joint pain [] Integument: Denies rash or skin lesions [] Neurologic: Denies headache, focal weakness or sensory changes [] Endocrine: Denies polyuria or polydipsia [] Current Medications Current Medications Current Medications Medications (Trade) Dose Ordered Sig/Arnaldo Start Time Stop Time Status Last Admin Dose Admin Famotidine (Pepcid) 20 mg 1X ONCE 07/02/17 07:00 07/02/17 07:01 DC 07/02/17 06:56 20 MG Hydromorphone HCl (Dilaudid) 1 mg PRN Q15MIN PRN 07/02/17 06:45 07/03/17 06:44 07/02/17 08:35 1 MG Lorazepam (Ativan) 1 mg 1X ONCE 07/02/17 07:00 07/02/17 07:01 DC 07/02/17 06:56 1 MG Magnesium Sulfate/ Dextrose 100 ml @ 100 mls/hr 1X ONCE 07/02/17 07:30 07/02/17 08:29 DC 07/02/17 08:03 100 MLS/HR Promethazine HCl 12.5 mg/Sodium Chloride 50.5 ml @ 151.5 mls/ hr PRN Q6HRS PRN 07/02/17 06:45 07/02/17 06:57 151.5 MLS/HR Sodium Chloride 1,000 ml @ 1,000 mls/hr 1X ONCE 07/02/17 07:00 07/02/17 07:59 DC 07/02/17 06:57 1,000 MLS/HR Allergies Allergies Allergies Coded Allergies Type Severity Reaction Last Updated Verified coconut Allergy Severe Anaphylaxis 01/22/17 Yes Physical Exam Physical Exam Constitutional: Well developed, well nourished, no acute distress, non-toxic appearance. [] HENT: Normocephalic, atraumatic, bilateral external ears normal, oropharynx moist, no oral exudates, nose normal. [] Eyes: PERRLA, EOMI, conjunctiva normal, no discharge. [] Neck: Normal range of motion, no tenderness, supple, no stridor. [] Cardiovascular:Heart rate regular rhythm, no murmur [] Lungs & Thorax: Bilateral breath sounds clear to auscultation [] Abdomen: Bowel sounds hyperactive, soft, mild tenderness palpation diffusely throughout the abdomen no rebound or guarding, no masses, no pulsatile masses. [ ] Skin: Warm, dry, no erythema, no rash. [] Back: No tenderness, no CVA tenderness. [] Extremities: No tenderness, no cyanosis, no clubbing, ROM intact, no edema. [] Neurologic: Alert and oriented X 3, normal motor function, normal sensory function, no focal deficits noted. [] Psychologic: Affect normal, judgement normal, mood normal. [] Current Patient Data Vital Signs Vital Signs Date Time Temp Pulse Resp B/P (MAP) Pulse Ox O2 Delivery O2 Flow Rate FiO2 07/02/17 07:33 14 99 Room Air 07/02/17 07:10 113 118/79 (92) 07/02/17 06:42 97.5 97.5 Lab Values Laboratory Tests Test 07/02/17 06:48 07/02/17 06:49 07/02/17 06:56 POC Urine HCG, Qualitative Hcg negative (Negative) Urine Collection Type Unknown Urine Color Straw Urine Clarity Clear Urine pH 5.5 Urine Specific [place] >=1.030 Urine Protein Negative mg/dL (NEG-TRACE) Urine Glucose (UA) Negative mg/dL (NEG) Urine Ketones (Stick) Negative mg/dL (NEG) Urine Blood Trace (NEG) Urine Nitrite Negative (NEG) Urine Bilirubin Negative (NEG) Urine Urobilinogen Dipstick 0.2 mg/dL (0.2 mg/dL) Urine Leukocyte Esterase Small (NEG) Urine RBC Occ /HPF (0-2) Urine WBC 0 /HPF (0-4) Urine Squamous Epithelial Cells Many /LPF Urine Bacteria 0 /HPF (0-FEW) Urine Mucus Mod /LPF Urine Opiates Screen Neg (NEG) Urine Methadone Screen Neg (NEG) Urine Barbiturates Neg (NEG) Urine Phencyclidine Screen Neg (NEG) Urine Amphetamine/Methamphetamine Neg (NEG) Urine Benzodiazepines Screen Neg (NEG) Urine Cocaine Screen Neg (NEG) Urine Cannabinoids Screen Pos (NEG) Urine Ethyl Alcohol Neg (NEG) White Blood Count 12.3 x10^3/uL (4.0-11.0) H Red Blood Count 4.56 x10^6/uL (3.50-5.40) Hemoglobin 13.7 g/dL (12.0-15.5) Hematocrit 40.4 % (36.0-47.0) Mean Corpuscular Volume 88 fL (79-100) Mean Corpuscular Hemoglobin 30 pg (25-35) Mean Corpuscular Hemoglobin Concent 34 g/dL (31-37) Red Cell Distribution Width 13.3 % (11.5-14.5) Platelet Count 195 x10^3/uL (140-400) Neutrophils (%) (Auto) 79 % (31-73) H Lymphocytes (%) (Auto) 15 % (24-48) L Monocytes (%) (Auto) 5 % (0-9) Eosinophils (%) (Auto) 0 % (0-3) Basophils (%) (Auto) 1 % (0-3) Neutrophils # (Auto) 9.7 x10^3uL (1.8-7.7) H Lymphocytes # (Auto) 1.9 x10^3/uL (1.0-4.8) Monocytes # (Auto) 0.6 x10^3/uL (0.0-1.1) Eosinophils # (Auto) 0.0 x10^3/uL (0.0-0.7) Basophils # (Auto) 0.1 x10^3/uL (0.0-0.2) Sodium Level 138 mmol/L (136-145) Potassium Level 3.3 mmol/L (3.5-5.1) L Chloride Level 104 mmol/L (98-107) Carbon Dioxide Level 22 mmol/L (21-32) Anion Gap 12 (6-14) Blood Urea Nitrogen 8 mg/dL (7-20) Creatinine 0.7 mg/dL (0.6-1.0) Estimated GFR (Cockcroft-Gault) 102.8 Glucose Level 142 mg/dL (70-99) H Calcium Level 9.6 mg/dL (8.5-10.1) Magnesium Level 1.6 mg/dL (1.8-2.4) L Total Bilirubin 0.7 mg/dL (0.2-1.0) Direct Bilirubin 0.1 mg/dL (0.0-0.2) Aspartate Amino Transferase (AST) 21 U/L (15-37) Alanine Aminotransferase (ALT) 20 U/L (14-59) Alkaline Phosphatase 65 U/L (46-116) Total Protein 8.0 g/dL (6.4-8.2) Albumin 4.3 g/dL (3.4-5.0) Laboratory Tests 07/02/17 06:56 Laboratory Tests 07/02/17 06:56 EKG EKG [] Radiology/Procedures Radiology/Procedures [] Impressions: Intractable nausea and vomiting Course & Med Decision Making Course & Med Decision Making Pertinent Labs and Imaging studies reviewed. (See chart for details) Patient's had multiple doses of Dilaudid and still complaining of abdominal pain and nausea. Electrolytes are slightly low with magnesium and potassium. I did replace magnesium 1 g IV in addition we'll order potassium and start D5 half normal saline. Patient's being admitted to Dr. Luis in stable condition at this time with interim orders written. Dragon Disclaimer Dragon Disclaimer This electronic medical record was generated, in whole or in part, using a voice recognition dictation system. Departure Departure Impression: Primary Impression: Cyclical vomiting Disposition: ADMITTED INPATIENT Admitting Physician: Violetta Luis Condition: STABLE Referrals: NO PCP (PCP) Problem Qualifiers Primary Impression: Cyclical vomiting Vomiting Intractability: intractable Nausea presence: with nausea Qualified Codes: G43.A1 - Cyclical vomiting, intractable DAVIED,NATALIE F MD Jul 02, 2017 06:48
[2017-07-02] MEDS: PROMETHAZINE 12.5 MG in IV NORMAL SALINE 50ML 50 ML IV PRN ×2 (06:57→16:16)
[2017-07-02] MEDS ORDERED: IV NORMAL SALINE 1000ML BAG 1,000 ML IV ONE (07:00)
[2017-07-02] MEDS ORDERED: FAMOTIDINE 20 MG/2 ML VIAL IVP ONE (07:00)
[2017-07-02 07:03] LABS: BASO # 0.1 x10^3/uL (0.0-0.2); BASO % 1 % (0-3); EOS % 0 % (0-3); HEMATOCRIT 40.4 % (36.0-47.0); HEMOGLOBIN 13.7 g/dL (12.0-15.5); LYMPH # 1.9 x10^3/uL (1.0-4.8); LYMPH % 15 % (24-48); MEAN CORPUSCULAR HEMOGLOBIN 30 pg (25-35); MEAN CORPUSCULAR HGB CONC 34 g/dL (31-37); MEAN CORPUSCULAR VOLUME 88 fL (79-100); MONO % 5 % (0-9); NEUT % 79 % (31-73); PLATELET COUNT 195 x10^3/uL (140-400); RED BLOOD COUNT 4.56 x10^6/uL (3.50-5.40); RED CELL DISTRIBUTION WIDTH 13.3 % (11.5-14.5); WHITE BLOOD COUNT 12.3 x10^3/uL (4.0-11.0)
[2017-07-02] MEDS: HYDROmorphone 2 MG/ML VIAL IV/SQ PRN ×3 (07:09→08:35)
[2017-07-02 07:11] LABS: CALCIUM 9.6 mg/dL (8.5-10.1); CREATININE 0.7 mg/dL (0.6-1.0); GFR 102.8; POTASSIUM 3.3 mmol/L (3.5-5.1)
[2017-07-02 07:12] LABS: BARBITURATES NEG (NEG); BENZODIAZEPINES NEG (NEG); CANNABINOIDS POS (NEG); COCAINE NEG (NEG); METHADONE NEG (NEG); OPIATES NEG (NEG); PHENCYCLIDINE NEG (NEG)
[2017-07-02 07:17] LABS: ALBUMIN 4.3 g/dL (3.4-5.0); DIRECT BILIRUBIN 0.1 mg/dL (0.0-0.2); MAGNESIUM 1.6 mg/dL (1.8-2.4); TOTAL BILIRUBIN 0.7 mg/dL (0.2-1.0)
[2017-07-02 07:20] LABS: BACTERIA,URINE 0 /HPF (0-FEW); BILIRUBIN,URINE NEGATIVE (NEG); GLUCOSE,URINE NEGATIVE (NEG); NITRITE,URINE NEGATIVE (NEG); PH,URINE 5.5; PROTEIN,URINE NEGATIVE (NEG-TRACE); RBC,URINE OCC /HPF (0-2); SQUAMOUS EPITHELIAL CELL,UR MANY /LPF; UROBILINOGEN,URINE 0.2 mg/dL (0.2 mg/dL); WBC,URINE 0 /HPF (0-4)
[2017-07-02] MEDS ORDERED: MAGNESIUM SULFATE 1GM 100 ML IV ONE (07:30)
[2017-07-02] MEDS ORDERED: ONDANSETRON PF 4 MG/2 ML VIAL. IV PRN (09:15)
[2017-07-02] MEDS ORDERED: IV DEXTROSE 5 %-0.45 % NACL 1,000 ML IV ONE (09:15)
[2017-07-02 10:00] VITALS: BP 95/62
[2017-07-02] MEDS ORDERED: ALPRAZolam 0.5 MG TABLET PO PRN (10:30)
[2017-07-02] MEDS ORDERED: diphenhydrAMINE HCL 25 MG CAPSULE PO PRN (10:30)
[2017-07-02] MEDS ORDERED: POTASSIUM CHLORIDE 20 MEQ TABLET.ER. PO ONE (10:30)
[2017-07-02] MEDS ORDERED: METOCLOPRAMIDE 10 MG TABLET. PO SCH (10:30)
[2017-07-02] MEDS ORDERED: oxyCODONE/APAP 5/325 1 TAB TABLET PO PRN (10:30)
[2017-07-02] MEDS ORDERED: diphenhydrAMINE 50 MG/ML VIAL IVP PRN (10:30)
[2017-07-02] MEDS: HYDROmorphone 2 MG/ML VIAL IV PRN ×3 (10:48→20:19)
[2017-07-02] MEDS: IV NORMAL SALINE 1000ML BAG 1,000 ML IV SCH ×2 (10:48→18:30)
[2017-07-02] MEDS: ONDANSETRON PF 4 MG/2 ML VIAL. IV PRN ×3 (10:49→21:12)
--- NOTE | 2017-07-02 12:48 | PDOC1 ---
History and Physical Date of Admission Date of Admission DATE: 07/02/17 TIME: 12:42 Identification/Chief Complaint Chief Complaint abd pain, emesis Problems: Source Source: Caregiver, Chart review, Patient History of Present Illness History of Present Illness 22 y.o female, known to us, I admitted last jun 10 for same issues, dcd on jun 21 by colleague. BAck again for similar sxs, emesis, bucket at bedside, K 3,3 , mag 1,.6,. Claims had 2 EGD done,, last was 3 yrs ago, some small ulcer, she denies blood tinged emesis. NOt taking her home elavil , not DM. Asking alvaro Seen at ER Did child care counselor about her continued vomiting, high risk of esophageal cancer in decades to come J tube etc,. These are all NOT news to her. She does want no J tube of course and is abhor by the idea of it. She seems to notice her attacks are triggered by her bad dreams/nightmares Past Medical History GI: Other (cyclic vomiter) Psych: Anxiety, Panic Endocrine: Other Past Surgical History Past Surgical History: Cholecystectomy Family History Family History: Diabetes, Heart Disease, Other Family History: Grandparents Social History Smoke: No ALCOHOL: none Drugs: Marijuana Current Problem List Problem List Problems Medical Problems: (1) Cyclical vomiting Status: Acute Problems: Current Medications Current Medications Current Medications Lorazepam (Ativan) 1 mg 1X ONCE IV Last administered on 07/02/17 06:56; Start 07/02/17 at 07:00; Stop 07/02/17 at 07:01; Status DC Promethazine HCl 12.5 mg/Sodium Chloride 50.5 ml @ 151.5 mls/ hr PRN Q6HRS PRN IV NAUSEA/VOMITING Last administered on 07/02/17 06:57; Start 07/02/17 at 06:45 Sodium Chloride 1,000 ml @ 1,000 mls/hr 1X ONCE IV Last administered on 06:57; Start 07/02/17 at 07:00; Stop 07/02/17 at 07:59; Status DC Hydromorphone HCl (Dilaudid) 1 mg PRN Q15MIN PRN IV/SQ PAIN GREATER THAN 3/10 Last administered on 07/02/17 08:35; Start 07/02/17 at 06:45; Stop 07/02/17 at 10:47; Status DC Famotidine (Pepcid) 20 mg 1X ONCE IVP Last administered on 07/02/17 06:56; Start 07/02/17 at 07:00; Stop 07/02/17 at 07:01; Status DC Magnesium Sulfate/ Dextrose 100 ml @ 100 mls/hr 1X ONCE IV Last administered on 07/02/17 08:03; Start 07/02/17 at 07:30; Stop 07/02/17 at 08:29; Status DC Ondansetron HCl (Zofran) 4 mg PRN Q8HRS PRN IV NAUSEA/VOMITING; Start 07/02/17 at 09:15; Stop 07/02/17 at 10:21; Status DC Dextrose/Sodium Chloride 1,000 ml @ 100 mls/hr 1X ONCE IV Last administered on 07/02/17 09:40; Start 07/02/17 at 09:15; Stop 07/02/17 at 10:47; Status DC Ondansetron HCl (Zofran) 4 mg PRN Q6HRS PRN IV NAUSEA/VOMITING Last administered on 07/02/17 10:49; Start 07/02/17 at 10:30; Stop 07/03/17 at 10:29 Sodium Chloride 1,000 ml @ 125 mls/hr Q8H IV Last administered on 07/02/17 10 :48; Start 07/02/17 at 10:30 Hydromorphone HCl (Dilaudid) 1 mg PRN Q4HRS PRN IV PAIN Last administered on 10:48; Start 07/02/17 at 10:30 Oxycodone/ Acetaminophen (Percocet 5/325) 1 tab PRN Q4HRS PRN PO PAIN; Start at 10:30 Oxycodone/ Acetaminophen (Percocet 10/325) 1 tab PRN Q4HRS PRN PO pain; Start 07/02/17 at 10:30 Metoclopramide HCl (Reglan) 10 mg PRN BFRMEALHC PO ; Start 07/02/17 at 10:30 Potassium Chloride (Klor-Con) 40 meq 1X ONCE PO ; Start 07/02/17 at 10:30; Stop 07/02/17 at 10:35; Status DC Alprazolam (Xanax) 0.5 mg PRN Q8HRS PRN PO ANXIETY / AGITATION; Start 07/02/17 at 10:30 Lorazepam (Ativan) 1 mg PRN Q4HRS PRN IV ANXIETY / AGITATION; Start 07/02/17 at 10:30 Diphenhydramine HCl (Benadryl) 25 mg PRN QHS PRN PO INSOMNIA; Start 07/02/17 at 10:30 Diphenhydramine HCl (Benadryl) 12.5 mg PRN Q8HRS PRN IVP ITCHING; Start at 10:30 Amitriptyline HCl (Amitriptyline HCl) 50 mg QHS PO ; Start 07/02/17 at 21:00 Active Scripts Active Amitriptyline Hcl 50 Mg Tablet 1 Tab PO QHS Allergies Allergies: Coded Allergies: coconut (Verified Allergy, Severe, Anaphylaxis, 01/22/17) rash, hives, throat sweeling ROS Review of System as per HPI only Physical Exam General: Alert, Oriented X3, Cooperative, No acute distress HEENT: PERRLA Lungs: Clear to auscultation, Normal air movement Heart: S1S2, RRR, no thrills, no rubs Cardiovascular: S1, S2 Breasts: Normal, Rt breast nml w/o mass, Lt breast nml w/o mass, Nipples normal Abdomen: Normal bowel sounds, Soft, No tenderness, No hepatosplenomegaly, No masses, Other (bucket at bedside) Rectal Exam: not examined Extremities: No clubbing, No cyanosis, No edema, Normal pulses, No tenderness/ swelling Skin: No rashes, No breakdown, No significant lesion Neuro: Normal gait, Normal speech, Strength at 5/5 X4 ext, Normal tone, Sensation intact, Cranial nerves 3-12 NL, Reflexes 2+ Psych/Mental Status: Mental status NL, Mood NL Vitals Vitals Vital Signs Date Time Temp Pulse Resp B/P (MAP) Pulse Ox O2 Delivery O2 Flow Rate FiO2 07/02/17 10:00 98.1 81 16 95/62 (73) 96 Room Air 98.1 Labs Labs Laboratory Tests Test 07/02/17 06:48 07/02/17 06:49 07/02/17 06:56 Bedside Urine HCG, Qualitative Hcg negative (Negative) Urine Collection Type Unknown Urine Color Straw Urine Clarity Clear Urine pH 5.5 Urine Specific [place] >=1.030 Urine Protein Negative mg/dL (NEG-TRACE) Urine Glucose (UA) Negative mg/dL (NEG) Urine Ketones (Stick) Negative mg/dL (NEG) Urine Blood Trace (NEG) Urine Nitrite Negative (NEG) Urine Bilirubin Negative (NEG) Urine Urobilinogen Dipstick 0.2 mg/dL (0.2 mg/dL) Urine Leukocyte Esterase Small (NEG) Urine RBC Occ /HPF (0-2) Urine WBC 0 /HPF (0-4) Urine Squamous Epithelial Cells Many /LPF Urine Bacteria 0 /HPF (0-FEW) Urine Mucus Mod /LPF Urine Opiates Screen Neg (NEG) Urine Methadone Screen Neg (NEG) Urine Barbiturates Neg (NEG) Urine Phencyclidine Screen Neg (NEG) Urine Amphetamine/Methamphetamine Neg (NEG) Urine Benzodiazepines Screen Neg (NEG) Urine Cocaine Screen Neg (NEG) Urine Cannabinoids Screen Pos (NEG) Urine Ethyl Alcohol Neg (NEG) White Blood Count 12.3 x10^3/uL (4.0-11.0) Red Blood Count 4.56 x10^6/uL (3.50-5.40) Hemoglobin 13.7 g/dL (12.0-15.5) Hematocrit 40.4 % (36.0-47.0) Mean Corpuscular Volume 88 fL (79-100) Mean Corpuscular Hemoglobin 30 pg (25-35) Mean Corpuscular Hemoglobin Concent 34 g/dL (31-37) Red Cell Distribution Width 13.3 % (11.5-14.5) Platelet Count 195 x10^3/uL (140-400) Neutrophils (%) (Auto) 79 % (31-73) Lymphocytes (%) (Auto) 15 % (24-48) Monocytes (%) (Auto) 5 % (0-9) Eosinophils (%) (Auto) 0 % (0-3) Basophils (%) (Auto) 1 % (0-3) Neutrophils # (Auto) 9.7 x10^3uL (1.8-7.7) Lymphocytes # (Auto) 1.9 x10^3/uL (1.0-4.8) Monocytes # (Auto) 0.6 x10^3/uL (0.0-1.1) Eosinophils # (Auto) 0.0 x10^3/uL (0.0-0.7) Basophils # (Auto) 0.1 x10^3/uL (0.0-0.2) Sodium Level 138 mmol/L (136-145) Potassium Level 3.3 mmol/L (3.5-5.1) Chloride Level 104 mmol/L (98-107) Carbon Dioxide Level 22 mmol/L (21-32) Anion Gap 12 (6-14) Blood Urea Nitrogen 8 mg/dL (7-20) Creatinine 0.7 mg/dL (0.6-1.0) Estimated GFR (Cockcroft-Gault) 102.8 Glucose Level 142 mg/dL (70-99) Calcium Level 9.6 mg/dL (8.5-10.1) Magnesium Level 1.6 mg/dL (1.8-2.4) Total Bilirubin 0.7 mg/dL (0.2-1.0) Direct Bilirubin 0.1 mg/dL (0.0-0.2) Aspartate Amino Transf (AST/SGOT) 21 U/L (15-37) Alanine Aminotransferase (ALT/SGPT) 20 U/L (14-59) Alkaline Phosphatase 65 U/L (46-116) Total Protein 8.0 g/dL (6.4-8.2) Albumin 4.3 g/dL (3.4-5.0) Laboratory Tests Test 07/02/17 06:48 07/02/17 06:49 07/02/17 06:56 Bedside Urine HCG, Qualitative Hcg negative (Negative) Urine Collection Type Unknown Urine Color Straw Urine Clarity Clear Urine pH 5.5 Urine Specific [place] >=1.030 Urine Protein Negative mg/dL (NEG-TRACE) Urine Glucose (UA) Negative mg/dL (NEG) Urine Ketones (Stick) Negative mg/dL (NEG) Urine Blood Trace (NEG) Urine Nitrite Negative (NEG) Urine Bilirubin Negative (NEG) Urine Urobilinogen Dipstick 0.2 mg/dL (0.2 mg/dL) Urine Leukocyte Esterase Small (NEG) Urine RBC Occ /HPF (0-2) Urine WBC 0 /HPF (0-4) Urine Squamous Epithelial Cells Many /LPF Urine Bacteria 0 /HPF (0-FEW) Urine Mucus Mod /LPF Urine Opiates Screen Neg (NEG) Urine Methadone Screen Neg (NEG) Urine Barbiturates Neg (NEG) Urine Phencyclidine Screen Neg (NEG) Urine Amphetamine/Methamphetamine Neg (NEG) Urine Benzodiazepines Screen Neg (NEG) Urine Cocaine Screen Neg (NEG) Urine Cannabinoids Screen Pos (NEG) Urine Ethyl Alcohol Neg (NEG) White Blood Count 12.3 x10^3/uL (4.0-11.0) Red Blood Count 4.56 x10^6/uL (3.50-5.40) Hemoglobin 13.7 g/dL (12.0-15.5) Hematocrit 40.4 % (36.0-47.0) Mean Corpuscular Volume 88 fL (79-100) Mean Corpuscular Hemoglobin 30 pg (25-35) Mean Corpuscular Hemoglobin Concent 34 g/dL (31-37) Red Cell Distribution Width 13.3 % (11.5-14.5) Platelet Count 195 x10^3/uL (140-400) Neutrophils (%) (Auto) 79 % (31-73) Lymphocytes (%) (Auto) 15 % (24-48) Monocytes (%) (Auto) 5 % (0-9) Eosinophils (%) (Auto) 0 % (0-3) Basophils (%) (Auto) 1 % (0-3) Neutrophils # (Auto) 9.7 x10^3uL (1.8-7.7) Lymphocytes # (Auto) 1.9 x10^3/uL (1.0-4.8) Monocytes # (Auto) 0.6 x10^3/uL (0.0-1.1) Eosinophils # (Auto) 0.0 x10^3/uL (0.0-0.7) Basophils # (Auto) 0.1 x10^3/uL (0.0-0.2) Sodium Level 138 mmol/L (136-145) Potassium Level 3.3 mmol/L (3.5-5.1) Chloride Level 104 mmol/L (98-107) Carbon Dioxide Level 22 mmol/L (21-32) Anion Gap 12 (6-14) Blood Urea Nitrogen 8 mg/dL (7-20) Creatinine 0.7 mg/dL (0.6-1.0) Estimated GFR (Cockcroft-Gault) 102.8 Glucose Level 142 mg/dL (70-99) Calcium Level 9.6 mg/dL (8.5-10.1) Magnesium Level 1.6 mg/dL (1.8-2.4) Total Bilirubin 0.7 mg/dL (0.2-1.0) Direct Bilirubin 0.1 mg/dL (0.0-0.2) Aspartate Amino Transf (AST/SGOT) 21 U/L (15-37) Alanine Aminotransferase (ALT/SGPT) 20 U/L (14-59) Alkaline Phosphatase 65 U/L (46-116) Total Protein 8.0 g/dL (6.4-8.2) Albumin 4.3 g/dL (3.4-5.0) VTE Prophylaxis Ordered VTE Prophylaxis Devices: Yes VTE Pharmacological Prophylaxi: Yes Assessment/Plan Assessment/Plan 1. Cyclic vomiting episode, initial encounter 2. Hypokalemia, hypomagnesemia 3,Depression , addictions NOS PLAn: Resume elavil as I think she is depressed Liquid diet then ADAT Oral WAGNERem when PO better OBS HEavy counselling educatn done Seen at GEOVANNI CARO MD Jul 02, 2017 12:48
[2017-07-02] MEDS: oxyCODONE/APAP 10/325 1 TAB TABLET PO PRN ×3 (12:52→21:11)
[2017-07-02 15:19] VITALS: BP 91/59
[2017-07-02] MEDS ORDERED: POTASSIUM CHLORIDE 20MEQ 50 ML IV SCH (16:45)
[2017-07-02] MEDS: POTASSIUM CHLORIDE 10MEQ 100 ML IV SCH ×4 (17:06→18:25)
[2017-07-02 19:15] VITALS: BP 100/56
[2017-07-02] MEDS: AMITRIPTYLINE HCL 50 MG TABLET PO SCH (20:19)
[2017-07-02 23:21] VITALS: BP 114/52
[2017-07-03] MEDS: ONDANSETRON PF 4 MG/2 ML VIAL. IV PRN (02:44)
[2017-07-03] MEDS: HYDROmorphone 2 MG/ML VIAL IV PRN ×3 (02:44→12:25)
[2017-07-03] MEDS: IV NORMAL SALINE 1000ML BAG 1,000 ML IV SCH ×3 (02:47→18:30)
[2017-07-03] MEDS: oxyCODONE/APAP 10/325 1 TAB TABLET PO PRN ×4 (04:20→20:29)
[2017-07-03] MEDS: PROMETHAZINE 12.5 MG in IV NORMAL SALINE 50ML 50 ML IV PRN ×2 (04:20→14:24)
[2017-07-03 07:00] VITALS: BP 90/59
[2017-07-03 07:01] LABS: BASO % 0 % (0-3); EOS % 2 % (0-3); HEMATOCRIT 32.9 % (36.0-47.0); HEMOGLOBIN 11.2 g/dL (12.0-15.5); LYMPH % 44 % (24-48); MEAN CORPUSCULAR HEMOGLOBIN 31 pg (25-35); MEAN CORPUSCULAR HGB CONC 34 g/dL (31-37); MEAN CORPUSCULAR VOLUME 90 fL (79-100); MONO % 8 % (0-9); NEUT % 46 % (31-73); PLATELET COUNT 139 x10^3/uL (140-400); RED BLOOD COUNT 3.66 x10^6/uL (3.50-5.40); RED CELL DISTRIBUTION WIDTH 13.3 % (11.5-14.5); WHITE BLOOD COUNT 4.5 x10^3/uL (4.0-11.0)
[2017-07-03 07:20] LABS: CALCIUM 8.4 mg/dL (8.5-10.1); CREATININE 0.7 mg/dL (0.6-1.0); GFR 102.8; POTASSIUM 3.8 mmol/L (3.5-5.1)
[2017-07-03 11:00] VITALS: BP 121/73
--- NOTE | 2017-07-03 12:34 | PDOC ---
PROGRESS NOTES Chief Complaint Chief Complaint Intractable N/V Cyclical vomiting syndrome Anxiety attacks Marijuana abuse History of Present Illness History of Present Illness 22yo F pt was admitted for intractable N/V with generalized epigastric abd pain. Pt has been admitted many time previously for the same issues. Pt was sitting up in bed this AM with mother and son attempting to eat jello. Pt indicates hunger and desire to eat, but pain, N/V make it difficult. Vitals Vitals Vital Signs Date Time Temp Pulse Resp B/P (MAP) Pulse Ox O2 Delivery O2 Flow Rate FiO2 07/03/17 11:13 16 Room Air 07/03/17 11:00 98.1 74 121/73 (89) 97 98.1 Physical Exam General: Alert, Oriented X3, Cooperative, No acute distress Heart: Regular rate, Normal S1, Normal S2 Lungs: Clear, Other Abdomen: Normal bowel sounds, Soft, No tenderness, No hepatosplenomegaly, No masses, Other (bucket at bedside) Extremities: No clubbing, No cyanosis, No edema, Normal pulses, No tenderness/ swelling Skin: No rashes, No breakdown, No significant lesion Labs LABS Laboratory Tests Test 07/03/17 06:15 White Blood Count 4.5 x10^3/uL (4.0-11.0) Red Blood Count 3.66 x10^6/uL (3.50-5.40) Hemoglobin 11.2 g/dL (12.0-15.5) Hematocrit 32.9 % (36.0-47.0) Mean Corpuscular Volume 90 fL (79-100) Mean Corpuscular Hemoglobin 31 pg (25-35) Mean Corpuscular Hemoglobin Concent 34 g/dL (31-37) Red Cell Distribution Width 13.3 % (11.5-14.5) Platelet Count 139 x10^3/uL (140-400) Neutrophils (%) (Auto) 46 % (31-73) Lymphocytes (%) (Auto) 44 % (24-48) Monocytes (%) (Auto) 8 % (0-9) Eosinophils (%) (Auto) 2 % (0-3) Basophils (%) (Auto) 0 % (0-3) Neutrophils # (Auto) 2.0 x10^3uL (1.8-7.7) Lymphocytes # (Auto) 2.0 x10^3/uL (1.0-4.8) Monocytes # (Auto) 0.4 x10^3/uL (0.0-1.1) Eosinophils # (Auto) 0.1 x10^3/uL (0.0-0.7) Basophils # (Auto) 0.0 x10^3/uL (0.0-0.2) Sodium Level 141 mmol/L (136-145) Potassium Level 3.8 mmol/L (3.5-5.1) Chloride Level 110 mmol/L (98-107) Carbon Dioxide Level 23 mmol/L (21-32) Anion Gap 8 (6-14) Blood Urea Nitrogen 4 mg/dL (7-20) Creatinine 0.7 mg/dL (0.6-1.0) Estimated GFR (Cockcroft-Gault) 102.8 Glucose Level 89 mg/dL (70-99) Calcium Level 8.4 mg/dL (8.5-10.1) Review of Systems Review of Systems Complains of abd pain Complains of nausea Complains of hunger Assessment and Plan Assessmemt and Plan Problems Medical Problems: (1) Cyclical vomiting Status: Acute Cyclical vomiting: recurring attacks of N/V, last DC for similar cause was , continue supportive care Anxiety: Likely contributory as per pt, continue [employer] meds Continue pain meds Continue IVF Continue anti-emetics and reglan Dispo: Hope to DC tomorrow if stable Problems: Comment Review of Relevant I have reviewed the following items miguel (where applicable) has been applied. Labs Laboratory Tests Test 07/02/17 06:48 07/02/17 06:49 07/02/17 06:56 07/03/17 06:15 Bedside Urine HCG, Qualitative Hcg negative (Negative) Urine Collection Type Unknown Urine Color Straw Urine Clarity Clear Urine pH 5.5 Urine Specific [place] >=1.030 Urine Protein Negative mg/dL (NEG-TRACE) Urine Glucose (UA) Negative mg/dL (NEG) Urine Ketones (Stick) Negative mg/dL (NEG) Urine Blood Trace (NEG) Urine Nitrite Negative (NEG) Urine Bilirubin Negative (NEG) Urine Urobilinogen Dipstick 0.2 mg/dL (0.2 mg/dL) Urine Leukocyte Esterase Small (NEG) Urine RBC Occ /HPF (0-2) Urine WBC 0 /HPF (0-4) Urine Squamous Epithelial Cells Many /LPF Urine Bacteria 0 /HPF (0-FEW) Urine Mucus Mod /LPF Urine Opiates Screen Neg (NEG) Urine Methadone Screen Neg (NEG) Urine Barbiturates Neg (NEG) Urine Phencyclidine Screen Neg (NEG) Urine Amphetamine/Methamphetamine Neg (NEG) Urine Benzodiazepines Screen Neg (NEG) Urine Cocaine Screen Neg (NEG) Urine Cannabinoids Screen Pos (NEG) Urine Ethyl Alcohol Neg (NEG) White Blood Count 12.3 x10^3/uL (4.0-11.0) 4.5 x10^3/uL (4.0-11.0) Red Blood Count 4.56 x10^6/uL (3.50-5.40) 3.66 x10^6/uL (3.50-5.40) Hemoglobin 13.7 g/dL (12.0-15.5) 11.2 g/dL (12.0-15.5) Hematocrit 40.4 % (36.0-47.0) 32.9 % (36.0-47.0) Mean Corpuscular Volume 88 fL (79-100) 90 fL (79-100) Mean Corpuscular Hemoglobin 30 pg (25-35) 31 pg (25-35) Mean Corpuscular Hemoglobin Concent 34 g/dL (31-37) 34 g/dL (31-37) Red Cell Distribution Width 13.3 % (11.5-14.5) 13.3 % (11.5-14.5) Platelet Count 195 x10^3/uL (140-400) 139 x10^3/uL (140-400) Neutrophils (%) (Auto) 79 % (31-73) 46 % (31-73) Lymphocytes (%) (Auto) 15 % (24-48) 44 % (24-48) Monocytes (%) (Auto) 5 % (0-9) 8 % (0-9) Eosinophils (%) (Auto) 0 % (0-3) 2 % (0-3) Basophils (%) (Auto) 1 % (0-3) 0 % (0-3) Neutrophils # (Auto) 9.7 x10^3uL (1.8-7.7) 2.0 x10^3uL (1.8-7.7) Lymphocytes # (Auto) 1.9 x10^3/uL (1.0-4.8) 2.0 x10^3/uL (1.0-4.8) Monocytes # (Auto) 0.6 x10^3/uL (0.0-1.1) 0.4 x10^3/uL (0.0-1.1) Eosinophils # (Auto) 0.0 x10^3/uL (0.0-0.7) 0.1 x10^3/uL (0.0-0.7) Basophils # (Auto) 0.1 x10^3/uL (0.0-0.2) 0.0 x10^3/uL (0.0-0.2) Sodium Level 138 mmol/L (136-145) 141 mmol/L (136-145) Potassium Level 3.3 mmol/L (3.5-5.1) 3.8 mmol/L (3.5-5.1) Chloride Level 104 mmol/L (98-107) 110 mmol/L (98-107) Carbon Dioxide Level 22 mmol/L (21-32) 23 mmol/L (21-32) Anion Gap 12 (6-14) 8 (6-14) Blood Urea Nitrogen 8 mg/dL (7-20) 4 mg/dL (7-20) Creatinine 0.7 mg/dL (0.6-1.0) 0.7 mg/dL (0.6-1.0) Estimated GFR (Cockcroft-Gault) 102.8 102.8 Glucose Level 142 mg/dL (70-99) 89 mg/dL (70-99) Calcium Level 9.6 mg/dL (8.5-10.1) 8.4 mg/dL (8.5-10.1) Magnesium Level 1.6 mg/dL (1.8-2.4) Total Bilirubin 0.7 mg/dL (0.2-1.0) Direct Bilirubin 0.1 mg/dL (0.0-0.2) Aspartate Amino Transf (AST/SGOT) 21 U/L (15-37) Alanine Aminotransferase (ALT/SGPT) 20 U/L (14-59) Alkaline Phosphatase 65 U/L (46-116) Total Protein 8.0 g/dL (6.4-8.2) Albumin 4.3 g/dL (3.4-5.0) Laboratory Tests Test 07/03/17 06:15 White Blood Count 4.5 x10^3/uL (4.0-11.0) Red Blood Count 3.66 x10^6/uL (3.50-5.40) Hemoglobin 11.2 g/dL (12.0-15.5) Hematocrit 32.9 % (36.0-47.0) Mean Corpuscular Volume 90 fL (79-100) Mean Corpuscular Hemoglobin 31 pg (25-35) Mean Corpuscular Hemoglobin Concent 34 g/dL (31-37) Red Cell Distribution Width 13.3 % (11.5-14.5) Platelet Count 139 x10^3/uL (140-400) Neutrophils (%) (Auto) 46 % (31-73) Lymphocytes (%) (Auto) 44 % (24-48) Monocytes (%) (Auto) 8 % (0-9) Eosinophils (%) (Auto) 2 % (0-3) Basophils (%) (Auto) 0 % (0-3) Neutrophils # (Auto) 2.0 x10^3uL (1.8-7.7) Lymphocytes # (Auto) 2.0 x10^3/uL (1.0-4.8) Monocytes # (Auto) 0.4 x10^3/uL (0.0-1.1) Eosinophils # (Auto) 0.1 x10^3/uL (0.0-0.7) Basophils # (Auto) 0.0 x10^3/uL (0.0-0.2) Sodium Level 141 mmol/L (136-145) Potassium Level 3.8 mmol/L (3.5-5.1) Chloride Level 110 mmol/L (98-107) Carbon Dioxide Level 23 mmol/L (21-32) Anion Gap 8 (6-14) Blood Urea Nitrogen 4 mg/dL (7-20) Creatinine 0.7 mg/dL (0.6-1.0) Estimated GFR (Cockcroft-Gault) 102.8 Glucose Level 89 mg/dL (70-99) Calcium Level 8.4 mg/dL (8.5-10.1) Medications Current Medications Lorazepam (Ativan) 1 mg 1X ONCE IV Last administered on 07/02/17 06:56; Start 07/02/17 at 07:00; Stop 07/02/17 at 07:01; Status DC Promethazine HCl 12.5 mg/Sodium Chloride 50.5 ml @ 151.5 mls/ hr PRN Q6HRS PRN IV NAUSEA/VOMITING Last administered on 07/03/17 04:20; Start 07/02/17 at 06:45 Sodium Chloride 1,000 ml @ 1,000 mls/hr 1X ONCE IV Last administered on 06:57; Start 07/02/17 at 07:00; Stop 07/02/17 at 07:59; Status DC Hydromorphone HCl (Dilaudid) 1 mg PRN Q15MIN PRN IV/SQ PAIN GREATER THAN 3/10 Last administered on 07/02/17 08:35; Start 07/02/17 at 06:45; Stop 07/02/17 at 10:47; Status DC Famotidine (Pepcid) 20 mg 1X ONCE IVP Last administered on 07/02/17 06:56; Start 07/02/17 at 07:00; Stop 07/02/17 at 07:01; Status DC Magnesium Sulfate/ Dextrose 100 ml @ 100 mls/hr 1X ONCE IV Last administered on 07/02/17 08:03; Start 07/02/17 at 07:30; Stop 07/02/17 at 08:29; Status DC Ondansetron HCl (Zofran) 4 mg PRN Q8HRS PRN IV NAUSEA/VOMITING; Start 07/02/17 at 09:15; Stop 07/02/17 at 10:21; Status DC Dextrose/Sodium Chloride 1,000 ml @ 100 mls/hr 1X ONCE IV Last administered on 07/02/17 09:40; Start 07/02/17 at 09:15; Stop 07/02/17 at 10:47; Status DC Ondansetron HCl (Zofran) 4 mg PRN Q6HRS PRN IV NAUSEA/VOMITING Last administered on 07/03/17 02:44; Start 07/02/17 at 10:30; Stop 07/03/17 at 10:29 ; Status DC Sodium Chloride 1,000 ml @ 125 mls/hr Q8H IV Last administered on 07/03/17 11 :18; Start 07/02/17 at 10:30 Hydromorphone HCl (Dilaudid) 1 mg PRN Q4HRS PRN IV PAIN Last administered on 07:49; Start 07/02/17 at 10:30 Oxycodone/ Acetaminophen (Percocet 5/325) 1 tab PRN Q4HRS PRN PO PAIN; Start at 10:30 Oxycodone/ Acetaminophen (Percocet 10/325) 1 tab PRN Q4HRS PRN PO pain Last administered on 07/03/17 11:13; Start 07/02/17 at 10:30 Metoclopramide HCl (Reglan) 10 mg PRN BFRMEALHC PO ; Start 07/02/17 at 10:30 Potassium Chloride (Klor-Con) 40 meq 1X ONCE PO ; Start 07/02/17 at 10:30; Stop 07/02/17 at 10:35; Status DC Alprazolam (Xanax) 0.5 mg PRN Q8HRS PRN PO ANXIETY / AGITATION; Start 07/02/17 at 10:30 Lorazepam (Ativan) 1 mg PRN Q4HRS PRN IV ANXIETY / AGITATION Last administered on 07/02/17 18:17; Start 07/02/17 at 10:30 Diphenhydramine HCl (Benadryl) 25 mg PRN QHS PRN PO INSOMNIA; Start 07/02/17 at 10:30 Diphenhydramine HCl (Benadryl) 12.5 mg PRN Q8HRS PRN IVP ITCHING; Start at 10:30 Amitriptyline HCl (Amitriptyline HCl) 50 mg QHS PO Last administered on 20:19; Start 07/02/17 at 21:00 Potassium Chloride 50 ml @ 50 mls/hr Q1H IV ; Start 07/02/17 at 16:45; Stop at 18:44; Status UNV Potassium Chloride 100 ml @ 100 mls/hr Q1H IV Last administered on 07/02/17 18:25; Start 07/02/17 at 17:00; Stop 07/02/17 at 20:59; Status DC Active Scripts Active Amitriptyline Hcl 50 Mg Tablet 1 Tab PO QHS Vitals/I & O Vital Sign - Last 24 Hours 07/02/17 07/02/17 07/02/17 07/02/17 15:19 19:15 20:19 21:11 Temp 98.1 98.1 98.1 98.1 Pulse 69 66 Resp 18 16 B/P (MAP) 91/59 (70) 100/56 (71) Pulse Ox 96 96 96 O2 Delivery Room Air Room Air Room Air Room Air 07/02/17 07/03/17 07/03/17 07/03/17 23:21 02:44 04:20 05:23 Temp 96.7 96.7 Pulse 76 Resp 16 B/P (MAP) 114/52 (72) Pulse Ox 97 O2 Delivery Room Air Room Air Room Air Room Air 07/03/17 07/03/17 07/03/17 07/03/17 07:00 07:49 08:00 08:19 Temp 97.5 97.5 Pulse 65 Resp 18 16 16 B/P (MAP) 90/59 (69) Pulse Ox 98 O2 Delivery Room Air Room Air Room Air Room Air 07/03/17 07/03/17 11:00 11:13 Temp 98.1 98.1 Pulse 74 Resp 18 16 B/P (MAP) 121/73 (89) Pulse Ox 97 O2 Delivery Room Air Room Air CHEYENNE LOYOLA III DO Jul 03, 2017 12:34
[2017-07-03 15:00] VITALS: BP 122/82
[2017-07-03 19:00] VITALS: BP 107/69
[2017-07-03] MEDS: AMITRIPTYLINE HCL 50 MG TABLET PO SCH (20:29)
[2017-07-03 23:00] VITALS: BP_SYST 102; BP_SYST 114; BP_DIAS 64; BP_DIAS 70
[2017-07-04] MEDS: oxyCODONE/APAP 10/325 1 TAB TABLET PO PRN ×4 (00:33→13:49)
[2017-07-04] MEDS: IV NORMAL SALINE 1000ML BAG 1,000 ML IV SCH ×2 (02:30→10:30)
[2017-07-04] MEDS: PROMETHAZINE 12.5 MG in IV NORMAL SALINE 50ML 50 ML IV PRN (04:11)
[2017-07-04 04:46] LABS: BASO % 0 % (0-3); EOS % 3 % (0-3); HEMATOCRIT 36.1 % (36.0-47.0); HEMOGLOBIN 12.7 g/dL (12.0-15.5); LYMPH % 37 % (24-48); MEAN CORPUSCULAR HEMOGLOBIN 31 pg (25-35); MEAN CORPUSCULAR HGB CONC 35 g/dL (31-37); MEAN CORPUSCULAR VOLUME 88 fL (79-100); MONO % 7 % (0-9); NEUT % 53 % (31-73); PLATELET COUNT 157 x10^3/uL (140-400); RED BLOOD COUNT 4.11 x10^6/uL (3.50-5.40); RED CELL DISTRIBUTION WIDTH 13.3 % (11.5-14.5); WHITE BLOOD COUNT 5.3 x10^3/uL (4.0-11.0)
[2017-07-04 05:02] LABS: CALCIUM 8.7 mg/dL (8.5-10.1); CREATININE 0.7 mg/dL (0.6-1.0); GFR 102.8; POTASSIUM 3.7 mmol/L (3.5-5.1)
[2017-07-04 06:56] VITALS: BP 124/78
[2017-07-04] MEDS: METOCLOPRAMIDE 10 MG TABLET. PO PRN ×2 (07:34→12:37)
--- NOTE | 2017-07-04 15:04 | PDOC ---
PROGRESS NOTES Chief Complaint Chief Complaint Intractable N/V Cyclical vomiting syndrome Anxiety attacks Marijuana abuse History of Present Illness History of Present Illness 22yo F pt was admitted for intractable N/V with generalized epigastric abd pain. Pt has been admitted many time previously for the same issues. Pt was sitting up in bed today attempting to eat solid lunch. Pt indicates hunger and desire to eat, but pain, N/V make it difficult. Vitals Vitals Vital Signs Date Time Temp Pulse Resp B/P (MAP) Pulse Ox O2 Delivery O2 Flow Rate FiO2 07/04/17 13:49 16 Room Air 07/04/17 06:56 97.5 91 124/78 (93) 98 97.5 Physical Exam General: Alert, Oriented X3, Cooperative, No acute distress Heart: Regular rate, Normal S1, Normal S2 Lungs: Clear, Other Abdomen: Normal bowel sounds, Soft, No tenderness, No hepatosplenomegaly, No masses, Other (bucket at bedside) Extremities: No clubbing, No cyanosis, No edema, Normal pulses, No tenderness/ swelling Skin: No rashes, No breakdown, No significant lesion Labs LABS Laboratory Tests Test 07/04/17 04:21 White Blood Count 5.3 x10^3/uL (4.0-11.0) Red Blood Count 4.11 x10^6/uL (3.50-5.40) Hemoglobin 12.7 g/dL (12.0-15.5) Hematocrit 36.1 % (36.0-47.0) Mean Corpuscular Volume 88 fL (79-100) Mean Corpuscular Hemoglobin 31 pg (25-35) Mean Corpuscular Hemoglobin Concent 35 g/dL (31-37) Red Cell Distribution Width 13.3 % (11.5-14.5) Platelet Count 157 x10^3/uL (140-400) Neutrophils (%) (Auto) 53 % (31-73) Lymphocytes (%) (Auto) 37 % (24-48) Monocytes (%) (Auto) 7 % (0-9) Eosinophils (%) (Auto) 3 % (0-3) Basophils (%) (Auto) 0 % (0-3) Neutrophils # (Auto) 2.8 x10^3uL (1.8-7.7) Lymphocytes # (Auto) 2.0 x10^3/uL (1.0-4.8) Monocytes # (Auto) 0.4 x10^3/uL (0.0-1.1) Eosinophils # (Auto) 0.1 x10^3/uL (0.0-0.7) Basophils # (Auto) 0.0 x10^3/uL (0.0-0.2) Sodium Level 141 mmol/L (136-145) Potassium Level 3.7 mmol/L (3.5-5.1) Chloride Level 106 mmol/L (98-107) Carbon Dioxide Level 26 mmol/L (21-32) Anion Gap 9 (6-14) Blood Urea Nitrogen 6 mg/dL (7-20) Creatinine 0.7 mg/dL (0.6-1.0) Estimated GFR (Cockcroft-Gault) 102.8 Glucose Level 85 mg/dL (70-99) Calcium Level 8.7 mg/dL (8.5-10.1) Review of Systems Review of Systems Pt complains of abd pain Pt complains of being unable to eat w/o vomiting Assessment and Plan Assessmemt and Plan Problems Medical Problems: (1) Cyclical vomiting Status: Acute Cyclical vomiting: recurring attacks of N/V, last DC for similar cause was , continue supportive care Anxiety: Likely contributory as per pt, continue [employer] meds Continue pain meds Continue IVF Continue anti-emetics and reglan Dispo: Hope to DC tomorrow if stable Problems: Comment Review of Relevant I have reviewed the following items miguel (where applicable) has been applied. Labs Laboratory Tests Test 07/03/17 06:15 07/04/17 04:21 White Blood Count 4.5 x10^3/uL (4.0-11.0) 5.3 x10^3/uL (4.0-11.0) Red Blood Count 3.66 x10^6/uL (3.50-5.40) 4.11 x10^6/uL (3.50-5.40) Hemoglobin 11.2 g/dL (12.0-15.5) 12.7 g/dL (12.0-15.5) Hematocrit 32.9 % (36.0-47.0) 36.1 % (36.0-47.0) Mean Corpuscular Volume 90 fL (79-100) 88 fL (79-100) Mean Corpuscular Hemoglobin 31 pg (25-35) 31 pg (25-35) Mean Corpuscular Hemoglobin Concent 34 g/dL (31-37) 35 g/dL (31-37) Red Cell Distribution Width 13.3 % (11.5-14.5) 13.3 % (11.5-14.5) Platelet Count 139 x10^3/uL (140-400) 157 x10^3/uL (140-400) Neutrophils (%) (Auto) 46 % (31-73) 53 % (31-73) Lymphocytes (%) (Auto) 44 % (24-48) 37 % (24-48) Monocytes (%) (Auto) 8 % (0-9) 7 % (0-9) Eosinophils (%) (Auto) 2 % (0-3) 3 % (0-3) Basophils (%) (Auto) 0 % (0-3) 0 % (0-3) Neutrophils # (Auto) 2.0 x10^3uL (1.8-7.7) 2.8 x10^3uL (1.8-7.7) Lymphocytes # (Auto) 2.0 x10^3/uL (1.0-4.8) 2.0 x10^3/uL (1.0-4.8) Monocytes # (Auto) 0.4 x10^3/uL (0.0-1.1) 0.4 x10^3/uL (0.0-1.1) Eosinophils # (Auto) 0.1 x10^3/uL (0.0-0.7) 0.1 x10^3/uL (0.0-0.7) Basophils # (Auto) 0.0 x10^3/uL (0.0-0.2) 0.0 x10^3/uL (0.0-0.2) Sodium Level 141 mmol/L (136-145) 141 mmol/L (136-145) Potassium Level 3.8 mmol/L (3.5-5.1) 3.7 mmol/L (3.5-5.1) Chloride Level 110 mmol/L (98-107) 106 mmol/L (98-107) Carbon Dioxide Level 23 mmol/L (21-32) 26 mmol/L (21-32) Anion Gap 8 (6-14) 9 (6-14) Blood Urea Nitrogen 4 mg/dL (7-20) 6 mg/dL (7-20) Creatinine 0.7 mg/dL (0.6-1.0) 0.7 mg/dL (0.6-1.0) Estimated GFR (Cockcroft-Gault) 102.8 102.8 Glucose Level 89 mg/dL (70-99) 85 mg/dL (70-99) Calcium Level 8.4 mg/dL (8.5-10.1) 8.7 mg/dL (8.5-10.1) Laboratory Tests Test 07/04/17 04:21 White Blood Count 5.3 x10^3/uL (4.0-11.0) Red Blood Count 4.11 x10^6/uL (3.50-5.40) Hemoglobin 12.7 g/dL (12.0-15.5) Hematocrit 36.1 % (36.0-47.0) Mean Corpuscular Volume 88 fL (79-100) Mean Corpuscular Hemoglobin 31 pg (25-35) Mean Corpuscular Hemoglobin Concent 35 g/dL (31-37) Red Cell Distribution Width 13.3 % (11.5-14.5) Platelet Count 157 x10^3/uL (140-400) Neutrophils (%) (Auto) 53 % (31-73) Lymphocytes (%) (Auto) 37 % (24-48) Monocytes (%) (Auto) 7 % (0-9) Eosinophils (%) (Auto) 3 % (0-3) Basophils (%) (Auto) 0 % (0-3) Neutrophils # (Auto) 2.8 x10^3uL (1.8-7.7) Lymphocytes # (Auto) 2.0 x10^3/uL (1.0-4.8) Monocytes # (Auto) 0.4 x10^3/uL (0.0-1.1) Eosinophils # (Auto) 0.1 x10^3/uL (0.0-0.7) Basophils # (Auto) 0.0 x10^3/uL (0.0-0.2) Sodium Level 141 mmol/L (136-145) Potassium Level 3.7 mmol/L (3.5-5.1) Chloride Level 106 mmol/L (98-107) Carbon Dioxide Level 26 mmol/L (21-32) Anion Gap 9 (6-14) Blood Urea Nitrogen 6 mg/dL (7-20) Creatinine 0.7 mg/dL (0.6-1.0) Estimated GFR (Cockcroft-Gault) 102.8 Glucose Level 85 mg/dL (70-99) Calcium Level 8.7 mg/dL (8.5-10.1) Microbiology 07/02/17 Urine Culture - Final, Complete 07/02/17 Urine Culture Result 1 (JORGE) - Final, Complete Medications Current Medications Lorazepam (Ativan) 1 mg 1X ONCE IV Last administered on 07/02/17 06:56; Start 07/02/17 at 07:00; Stop 07/02/17 at 07:01; Status DC Promethazine HCl 12.5 mg/Sodium Chloride 50.5 ml @ 151.5 mls/ hr PRN Q6HRS PRN IV NAUSEA/VOMITING Last administered on 07/04/17 04:11; Start 07/02/17 at 06:45 Sodium Chloride 1,000 ml @ 1,000 mls/hr 1X ONCE IV Last administered on 06:57; Start 07/02/17 at 07:00; Stop 07/02/17 at 07:59; Status DC Hydromorphone HCl (Dilaudid) 1 mg PRN Q15MIN PRN IV/SQ PAIN GREATER THAN 3/10 Last administered on 07/02/17 08:35; Start 07/02/17 at 06:45; Stop 07/02/17 at 10:47; Status DC Famotidine (Pepcid) 20 mg 1X ONCE IVP Last administered on 07/02/17 06:56; Start 07/02/17 at 07:00; Stop 07/02/17 at 07:01; Status DC Magnesium Sulfate/ Dextrose 100 ml @ 100 mls/hr 1X ONCE IV Last administered on 07/02/17 08:03; Start 07/02/17 at 07:30; Stop 07/02/17 at 08:29; Status DC Ondansetron HCl (Zofran) 4 mg PRN Q8HRS PRN IV NAUSEA/VOMITING; Start 07/02/17 at 09:15; Stop 07/02/17 at 10:21; Status DC Dextrose/Sodium Chloride 1,000 ml @ 100 mls/hr 1X ONCE IV Last administered on 07/02/17 09:40; Start 07/02/17 at 09:15; Stop 07/02/17 at 10:47; Status DC Ondansetron HCl (Zofran) 4 mg PRN Q6HRS PRN IV NAUSEA/VOMITING Last administered on 07/03/17 02:44; Start 07/02/17 at 10:30; Stop 07/03/17 at 10:29 ; Status DC Sodium Chloride 1,000 ml @ 125 mls/hr Q8H IV Last administered on 07/03/17 11 :18; Start 07/02/17 at 10:30 Hydromorphone HCl (Dilaudid) 1 mg PRN Q4HRS PRN IV PAIN Last administered on 12:25; Start 07/02/17 at 10:30; Stop 07/03/17 at 19:39; Status DC Oxycodone/ Acetaminophen (Percocet 5/325) 1 tab PRN Q4HRS PRN PO MODERATE PAIN ; Start 07/02/17 at 10:30 Oxycodone/ Acetaminophen (Percocet 10/325) 1 tab PRN Q4HRS PRN PO SEVERE PAIN Last administered on 07/04/17 13:49; Start 07/02/17 at 10:30 Metoclopramide HCl (Reglan) 10 mg PRN BFRMEALHC PO ; Start 07/02/17 at 10:30; Stop 07/04/17 at 07:30; Status DC Potassium Chloride (Klor-Con) 40 meq 1X ONCE PO ; Start 07/02/17 at 10:30; Stop 07/02/17 at 10:35; Status DC Alprazolam (Xanax) 0.5 mg PRN Q8HRS PRN PO ANXIETY / AGITATION; Start 07/02/17 at 10:30 Lorazepam (Ativan) 1 mg PRN Q4HRS PRN IV ANXIETY / AGITATION Last administered on 07/03/17 23:27; Start 07/02/17 at 10:30 Diphenhydramine HCl (Benadryl) 25 mg PRN QHS PRN PO INSOMNIA; Start 07/02/17 at 10:30 Diphenhydramine HCl (Benadryl) 12.5 mg PRN Q8HRS PRN IVP ITCHING; Start at 10:30 Amitriptyline HCl (Amitriptyline HCl) 50 mg QHS PO Last administered on 20:29; Start 07/02/17 at 21:00 Potassium Chloride 50 ml @ 50 mls/hr Q1H IV ; Start 07/02/17 at 16:45; Stop at 18:44; Status UNV Potassium Chloride 100 ml @ 100 mls/hr Q1H IV Last administered on 07/02/17 18:25; Start 07/02/17 at 17:00; Stop 07/02/17 at 20:59; Status DC Metoclopramide HCl (Reglan) 10 mg PRN BFRMEALHC PRN PO gi Last administered on 07/04/17 12:37; Start 07/04/17 at 07:30 Active Scripts Active Amitriptyline Hcl 50 Mg Tablet 1 Tab PO QHS Vitals/I & O Vital Sign - Last 24 Hours 07/03/17 07/03/17 07/03/17 07/03/17 15:59 19:00 20:30 23:00 Temp 98.6 98.1 98.6 98.1 Pulse 72 84 Resp 16 18 18 B/P (MAP) 107/69 (82) 114/70 (85) Pulse Ox 96 96 O2 Delivery Room Air Room Air Room Air Room Air 07/04/17 07/04/17 07/04/17 07/04/17 06:56 08:00 09:17 10:17 Temp 97.5 97.5 Pulse 91 Resp 18 16 16 B/P (MAP) 124/78 (93) Pulse Ox 98 O2 Delivery Room Air Room Air Room Air Room Air 07/04/17 13:49 Resp 16 O2 Delivery Room Air CHEYENNE LOYOLA III DO Jul 04, 2017 15:04
== END 2017-07-04 15:25 | disposition home or self-care (01) ==
LOC: ER 06:38 → 4 NORTH 08:56
PROVIDERS: ADMIT Internal Medicine; ATTEND Internal Medicine
DX: G43.A0 Cyclical vomiting, in migraine, not intractable (principal); F32.9 Major depressive disorder, single episode, unspecified; E87.6 Hypokalemia; E83.42 Hypomagnesemia; F12.10 Cannabis abuse, uncomplicated; F41.0 Panic disorder [episodic paroxysmal anxiety]; F41.1 Generalized anxiety disorder
CPT/HCPCS: 36415; 80048; 80076; 80307; 81001; 81025; 83735; 85025; 87086; 96361; 96365; 96366; 96367; 96375; 96376; 99285; G0378; J1170; J2060; J2405; J2550; J3475; J3480; J7030; J8597; S0028; G0379; G0479

== ENCOUNTER 2017-07-13 04:14 | Emergency (ER) | payer SELFPAY ==
[2017-07-13 04:14] VITALS: BP 119/81
[2017-07-13 05:12] LABS: BASO % 0 % (0-3); EOS % 1 % (0-3); HEMATOCRIT 38.5 % (36.0-47.0); HEMOGLOBIN 13.6 g/dL (12.0-15.5); LYMPH # 1.8 x10^3/uL (1.0-4.8); LYMPH % 26 % (24-48); MEAN CORPUSCULAR HEMOGLOBIN 31 pg (25-35); MEAN CORPUSCULAR HGB CONC 35 g/dL (31-37); MEAN CORPUSCULAR VOLUME 87 fL (79-100); MONO % 7 % (0-9); NEUT % 67 % (31-73); PLATELET COUNT 173 x10^3/uL (140-400); RED BLOOD COUNT 4.43 x10^6/uL (3.50-5.40); RED CELL DISTRIBUTION WIDTH 12.8 % (11.5-14.5); WHITE BLOOD COUNT 6.9 x10^3/uL (4.0-11.0)
[2017-07-13] MEDS ORDERED: METOCLOPRAMIDE HCL 10 MG/2 ML VIAL. IV ONE (05:15)
[2017-07-13] MEDS ORDERED: ONDANSETRON PF 4 MG/2 ML VIAL. IV ONE (05:15)
[2017-07-13] MEDS ORDERED: HYDROmorphone 2 MG/ML VIAL IV/SQ PRN (05:15)
[2017-07-13] MEDS ORDERED: diphenhydrAMINE 50 MG/ML VIAL IVP ONE (05:15)
[2017-07-13] MEDS ORDERED: IV NORMAL SALINE 1000ML BAG 1,000 ML IV SCH (05:15)
[2017-07-13 05:18] LABS: CALCIUM 9.2 mg/dL (8.5-10.1); CREATININE 0.6 mg/dL (0.6-1.0); GFR 122.8; POTASSIUM 3.4 mmol/L (3.5-5.1)
[2017-07-13 05:23] LABS: ALBUMIN 4.2 g/dL (3.4-5.0); ALBUMIN/GLOBULIN RATIO 1.2 (1.0-1.7); TOTAL BILIRUBIN 0.9 mg/dL (0.2-1.0); TOTAL PROTEIN 7.6 g/dL (6.4-8.2)
[2017-07-13] MEDS ORDERED: PROM25SU32 RC (05:46)
[2017-07-13] MEDS ORDERED: ONDA4TAB10 PO (05:46)
--- NOTE | 2017-07-13 05:46 | PHYS DOC ---
Past Medical History Past Medical History: Anxiety, Other Additional Past Medical Histor: cyclic vomiting syndrome, PANIC ATTACKS Past Surgical History: Cholecystectomy Additional Information: no tobacco use Alcohol Use: None Drug Use: Marijuana Adult General Chief Complaint Chief Complaint: NAUSEA/VOMITING/DIARRHA HPI HPI Patient is a 22 year old female who presents with cyclic vomiting. She has frequent ED visits and hospitalizations here. Last Visit 06/18 and 07/02 with admission on 07/02/17. She states that "I didnt' get any prescriptions when I left." She started vomiting tonight. She cannot stop. Last THC use one week ago. No fever, no urinary complaints. Review of Systems Review of Systems Constitutional: Denies fever or chills Eyes: Denies change in visual acuity, redness, or eye pain HENT: Denies nasal congestion or sore throat Respiratory: Denies cough or shortness of breath Cardiovascular: No chest pain GI: POS abdominal pain, nausea, vomiting, NO bloody stools or diarrhea : Denies dysuria or hematuria Musculoskeletal: Denies back pain or joint pain Integument: Denies rash or skin lesions Neurologic: Denies headache, focal weakness or sensory changes Current Medications Current Medications Current Medications Medications (Trade) Dose Ordered Sig/Arnaldo Start Time Stop Time Status Last Admin Dose Admin Diphenhydramine HCl (Benadryl) 25 mg 1X ONCE 07/13/17 05:15 07/13/17 05:16 DC 07/13/17 05:14 25 MG Hydromorphone HCl (Dilaudid) 0.5 mg PRN Q15MIN PRN 07/13/17 05:15 07/14/17 05:14 07/13/17 05:14 0.5 MG Metoclopramide HCl (Reglan) 10 mg 1X ONCE 07/13/17 05:15 07/13/17 05:16 DC 07/13/17 05:14 10 MG Ondansetron HCl (Zofran) 4 mg 1X ONCE 07/13/17 05:15 07/13/17 05:16 DC 07/13/17 05:12 4 MG Sodium Chloride 1,000 ml @ 1,000 mls/hr Q1H 07/13/17 05:15 07/13/17 06:14 07/13/17 05:13 1,000 MLS/HR Allergies Allergies Allergies Coded Allergies Type Severity Reaction Last Updated Verified coconut Allergy Severe Anaphylaxis 4/7/17 Yes Physical Exam Physical Exam Constitutional: Well developed, well nourished, no acute distress, non-toxic appearance. HENT: Normocephalic, atraumatic, bilateral external ears normal, oropharynx moist, no oral exudates, nose normal. Eyes: PERRLA, EOMI, conjunctiva normal, no discharge. Neck: Normal range of motion, no tenderness, supple, no stridor. Cardiovascular:Heart rate regular rhythm, no murmur Lungs & Thorax: Bilateral breath sounds clear to auscultation Abdomen: Bowel sounds normal, soft, diffuse tenderness, NO rebound or guarding; no masses, no pulsatile masses. Skin: Warm, dry, no erythema, no rash. Back: No tenderness, no CVA tenderness. Extremities: No tenderness, no cyanosis, no clubbing, ROM intact, no edema. Neurologic: Alert and oriented X 3, normal motor function, normal sensory function, no focal deficits noted. Current Patient Data Vital Signs Vital Signs Date Time Temp Pulse Resp B/P (MAP) Pulse Ox O2 Delivery O2 Flow Rate FiO2 07/13/17 05:14 20 98 Room Air 07/13/17 04:14 98.2 93 119/81 (94) 98.2 Lab Values Laboratory Tests Test 07/13/17 04:30 White Blood Count 6.9 x10^3/uL (4.0-11.0) Red Blood Count 4.43 x10^6/uL (3.50-5.40) Hemoglobin 13.6 g/dL (12.0-15.5) Hematocrit 38.5 % (36.0-47.0) Mean Corpuscular Volume 87 fL (79-100) Mean Corpuscular Hemoglobin 31 pg (25-35) Mean Corpuscular Hemoglobin Concent 35 g/dL (31-37) Red Cell Distribution Width 12.8 % (11.5-14.5) Platelet Count 173 x10^3/uL (140-400) Neutrophils (%) (Auto) 67 % (31-73) Lymphocytes (%) (Auto) 26 % (24-48) Monocytes (%) (Auto) 7 % (0-9) Eosinophils (%) (Auto) 1 % (0-3) Basophils (%) (Auto) 0 % (0-3) Neutrophils # (Auto) 4.6 x10^3uL (1.8-7.7) Lymphocytes # (Auto) 1.8 x10^3/uL (1.0-4.8) Monocytes # (Auto) 0.5 x10^3/uL (0.0-1.1) Eosinophils # (Auto) 0.1 x10^3/uL (0.0-0.7) Basophils # (Auto) 0.0 x10^3/uL (0.0-0.2) Maternal Serum HCG Beta Subunit 1 mIU/mL (0-5) Sodium Level 141 mmol/L (136-145) Potassium Level 3.4 mmol/L (3.5-5.1) L Chloride Level 104 mmol/L (98-107) Carbon Dioxide Level 25 mmol/L (21-32) Anion Gap 12 (6-14) Blood Urea Nitrogen 11 mg/dL (7-20) Creatinine 0.6 mg/dL (0.6-1.0) Estimated GFR (Cockcroft-Gault) 122.8 BUN/Creatinine Ratio 18 (6-20) Glucose Level 98 mg/dL (70-99) Calcium Level 9.2 mg/dL (8.5-10.1) Total Bilirubin 0.9 mg/dL (0.2-1.0) Aspartate Amino Transferase (AST) 16 U/L (15-37) Alanine Aminotransferase (ALT) 20 U/L (14-59) Alkaline Phosphatase 63 U/L (46-116) Total Protein 7.6 g/dL (6.4-8.2) Albumin 4.2 g/dL (3.4-5.0) Albumin/Globulin Ratio 1.2 (1.0-1.7) Lipase 133 U/L (73-393) Laboratory Tests 07/13/17 04:30 Laboratory Tests 07/13/17 04:30 Course & Med Decision Making Course & Med Decision Making Evaluated patient upon arrival. IV NS, IV Reglan, benadryl, Dilaudid and zofran. At 0545 AM: her lab is normal (HCG negative). Home w rx: phenergan suppositories and zofran ODT. Encouraged to stop THC as that can cause "cannabinoid hyperemesis syndrome". She states she did research on that "and it made no difference when I quit." I have spoken with the patient and/or caregivers. I have explained the patient' s condition, diagnosis and treatment plan based on the information available to me at this time. I have answered the patient's and/or caregiver's questions and addressed any concerns. The patient and/or caregivers have as good an understanding of the patient's diagnosis, condition and treatment plan as can be expected at this point. The patient's condition is stable and appropriate for discharge from the emergency department. The patient will pursue further outpatient evaluation with the primary care physician or other designated or consulting physician as outlined in the discharge instructions. The patient and/or caregivers are agreeable to this plan of care and follow-up instructions have been explained in detail. The patient and/or caregivers have received these instructions in written format and have expressed an understanding of the discharge instructions. The patient and/or caregivers are aware that any significant change in condition or worsening of symptoms should prompt an immediate return to this or the closest emergency department or a call to 911. Dragon Disclaimer Dragon Disclaimer This electronic medical record was generated, in whole or in part, using a voice recognition dictation system. Departure Departure Impression: Primary Impression: Cyclical vomiting Additional Impression: Nausea & vomiting Disposition: 01 HOME, SELF-CARE Condition: IMPROVED Referrals: NO PCP (PCP) Patient Instructions: Cyclic Vomiting Syndrome Scripts Ondansetron (ZOFRAN ODT) 4 Mg Tab.rapdis 8 MG PO BID Y for NAUSEA/VOMITING, #14 TAB Prov: JAELYN GONZALEZ MD 07/13/17 Promethazine HCl (Phenergan) 25 Mg Supp.rect 25 MG RC PRN Q6-8HRS Y for NAUSEA, #14 SUPP.RECT Prov: JAELYN GONZALEZ MD 07/13/17 Problem Qualifiers Primary Impression: Cyclical vomiting Vomiting Intractability: intractable Nausea presence: with nausea Qualified Codes: G43.A1 - Cyclical vomiting, intractable Additional Impression: Nausea & vomiting Vomiting type: unspecified Vomiting Intractability: intractable Qualified Codes: R11.2 - Nausea with vomiting, unspecified JAELYN GONZALEZ MD Jul 13, 2017 05:46
== END 2017-07-13 07:08 | disposition home or self-care (01) ==
LOC: ER 04:14
DX: G43.A0 Cyclical vomiting, in migraine, not intractable (principal); Z91.018 Allergy to other foods; F12.10 Cannabis abuse, uncomplicated
CPT/HCPCS: 36415; 80053; 83690; 84702; 85025; 96361; 96374; 96375; 99284; J1170; J1200; J2405; J2765; J7030

== ENCOUNTER 2017-07-14 07:34 | Inpatient (IN) | payer SELFPAY ==
[~2017-07-14] VITALS: Ht 162.6 cm; Wt 62.3 kg
[~2017-07-14 07:34] MED LIST changes: +PROM25SU32 RC
[2017-07-14] MEDS ORDERED: IV NORMAL SALINE 1000ML BAG 1,000 ML IV SCH (07:52)
[2017-07-14 08:00] LABS: BASO # 0.1 x10^3/uL (0.0-0.2); BASO % 1 % (0-3); EOS % 1 % (0-3); HEMATOCRIT 43.1 % (36.0-47.0); HEMOGLOBIN 14.7 g/dL (12.0-15.5); LYMPH # 2.7 x10^3/uL (1.0-4.8); LYMPH % 44 % (24-48); MEAN CORPUSCULAR HEMOGLOBIN 30 pg (25-35); MEAN CORPUSCULAR HGB CONC 34 g/dL (31-37); MEAN CORPUSCULAR VOLUME 89 fL (79-100); MONO % 9 % (0-9); NEUT % 45 % (31-73); PLATELET COUNT 211 x10^3/uL (140-400); RED BLOOD COUNT 4.86 x10^6/uL (3.50-5.40); RED CELL DISTRIBUTION WIDTH 13.3 % (11.5-14.5); WHITE BLOOD COUNT 6.1 x10^3/uL (4.0-11.0)
[2017-07-14] MEDS ORDERED: diphenhydrAMINE 50 MG/ML VIAL IVP ONE (08:00)
[2017-07-14] MEDS ORDERED: METOCLOPRAMIDE HCL 10 MG/2 ML VIAL. IV ONE (08:00)
[2017-07-14 08:02] LABS: BILIRUBIN,URINE NEGATIVE (NEG); GLUCOSE,URINE NEGATIVE (NEG); NITRITE,URINE NEGATIVE (NEG); PROTEIN,URINE 30 mg/dL (NEG-TRACE); UROBILINOGEN,URINE 0.2 mg/dL (0.2 mg/dL)
--- NOTE | 2017-07-14 08:02 | PHYS DOC ---
Past Medical History Past Medical History: Anxiety, Other Additional Past Medical Histor: cyclic vomiting syndrome, PANIC ATTACKS Past Surgical History: Cholecystectomy Alcohol Use: None Drug Use: Marijuana Adult General Chief Complaint Chief Complaint: NAUSEA/VOMITING/DIARRHA HPI HPI Patient is a 22 year old female who presents with cyclic vomiting. She is well- known to me and she's had multiple ED visits and admissions for cyclic vomiting syndrome. Last Visit 06/18 and 07/02 with admission on 07/02/17 and seen again on . she states she started vomiting last night his been having some loose stools that she was able to use her suppositories that she just received yesterday. She states is her typical pain and vomiting that she has with her cyclic vomiting. She states that Dilaudid, Benadryl, Reglan is what helps her. Review of Systems Review of Systems Constitutional: Denies fever or chills [] Eyes: Denies change in visual acuity, redness, or eye pain [] HENT: Denies nasal congestion or sore throat [] Respiratory: Denies cough or shortness of breath [] Cardiovascular: No additional information not addressed in HPI [] GI: Positive for abdominal pain, nausea, vomiting, diarrhea, denies any bloody stools[] : Denies dysuria or hematuria [] Musculoskeletal: Denies back pain or joint pain [] Integument: Denies rash or skin lesions [] Neurologic: Denies headache, focal weakness or sensory changes [] Endocrine: Denies polyuria or polydipsia [] Current Medications Current Medications Current Medications Medications (Trade) Dose Ordered Sig/Arnaldo Start Time Stop Time Status Last Admin Dose Admin Diphenhydramine HCl (Benadryl) 25 mg 1X ONCE 07/14/17 08:00 07/14/17 08:01 DC 07/14/17 08:07 25 MG Hydromorphone HCl (Dilaudid) 0.5 mg PRN Q15MIN PRN 07/14/17 08:00 07/15/17 07:59 07/14/17 11:05 0.5 MG Metoclopramide HCl (Reglan) 10 mg 1X ONCE 07/14/17 08:00 07/14/17 08:01 DC 07/14/17 08:06 10 MG Ondansetron HCl (Zofran) 4 mg 1X ONCE 07/14/17 09:15 07/14/17 09:16 DC 07/14/17 09:14 4 MG Sodium Chloride 1,000 ml @ 1,000 mls/hr 1X ONCE 07/14/17 10:00 07/14/17 10:59 DC 07/14/17 09:58 1,000 MLS/HR Allergies Allergies Allergies Coded Allergies Type Severity Reaction Last Updated Verified coconut Allergy Severe Anaphylaxis 01/22/17 Yes Physical Exam Physical Exam Constitutional: Well developed, well nourished, no acute distress, non-toxic appearance. [] HENT: Normocephalic, atraumatic, bilateral external ears normal, oropharynx moist, no oral exudates, nose normal. [] Eyes: PERRLA, EOMI, conjunctiva normal, no discharge. [] Neck: Normal range of motion, no tenderness, supple, no stridor. [] Cardiovascular:Heart rate regular rhythm, no murmur [] Lungs & Thorax: Bilateral breath sounds clear to auscultation [] Abdomen: Bowel sounds normal, soft, mildly tender palpation diffusely, no rebound or guarding, no masses, no pulsatile masses. [] Skin: Warm, dry, no erythema, no rash. [] Back: No tenderness, no CVA tenderness. [] Extremities: No tenderness, no cyanosis, no clubbing, ROM intact, no edema. [] Neurologic: Alert and oriented X 3, normal motor function, normal sensory function, no focal deficits noted. [] Psychologic: Affect normal, judgement normal, mood normal. [] Current Patient Data Vital Signs Vital Signs Date Time Temp Pulse Resp B/P (MAP) Pulse Ox O2 Delivery O2 Flow Rate FiO2 07/14/17 10:00 54 109/58 (75) 98 Room Air 07/14/17 09:14 18 07/14/17 07:36 98.2 98.2 Lab Values Laboratory Tests Test 07/14/17 01:42 07/14/17 07:45 07/14/17 08:02 White Blood Count 6.1 x10^3/uL (4.0-11.0) Red Blood Count 4.86 x10^6/uL (3.50-5.40) Hemoglobin 14.7 g/dL (12.0-15.5) Hematocrit 43.1 % (36.0-47.0) Mean Corpuscular Volume 89 fL (79-100) Mean Corpuscular Hemoglobin 30 pg (25-35) Mean Corpuscular Hemoglobin Concent 34 g/dL (31-37) Red Cell Distribution Width 13.3 % (11.5-14.5) Platelet Count 211 x10^3/uL (140-400) Neutrophils (%) (Auto) 45 % (31-73) Lymphocytes (%) (Auto) 44 % (24-48) Monocytes (%) (Auto) 9 % (0-9) Eosinophils (%) (Auto) 1 % (0-3) Basophils (%) (Auto) 1 % (0-3) Neutrophils # (Auto) 2.8 x10^3uL (1.8-7.7) Lymphocytes # (Auto) 2.7 x10^3/uL (1.0-4.8) Monocytes # (Auto) 0.5 x10^3/uL (0.0-1.1) Eosinophils # (Auto) 0.1 x10^3/uL (0.0-0.7) Basophils # (Auto) 0.1 x10^3/uL (0.0-0.2) Sodium Level 143 mmol/L (136-145) Potassium Level 3.4 mmol/L (3.5-5.1) L Chloride Level 103 mmol/L (98-107) Carbon Dioxide Level 23 mmol/L (21-32) Anion Gap 17 (6-14) H Blood Urea Nitrogen 8 mg/dL (7-20) Creatinine 0.8 mg/dL (0.6-1.0) Estimated GFR (Cockcroft-Gault) 88.1 Glucose Level 104 mg/dL (70-99) H Calcium Level 9.8 mg/dL (8.5-10.1) Total Bilirubin 1.1 mg/dL (0.2-1.0) H Direct Bilirubin 0.2 mg/dL (0.0-0.2) Aspartate Amino Transferase (AST) 21 U/L (15-37) Alanine Aminotransferase (ALT) 21 U/L (14-59) Alkaline Phosphatase 70 U/L (46-116) Creatine Kinase 65 U/L (26-192) Total Protein 8.0 g/dL (6.4-8.2) Albumin 4.6 g/dL (3.4-5.0) Lipase 178 U/L (73-393) Urine Collection Type Unknown Urine Color Quin Urine Clarity Cloudy Urine pH 6.0 Urine Specific [place] >=1.030 Urine Protein 30 mg/dL (NEG-TRACE) Urine Glucose (UA) Negative mg/dL (NEG) Urine Ketones (Stick) 40 mg/dL (NEG) Urine Blood Moderate (NEG) Urine Nitrite Negative (NEG) Urine Bilirubin Negative (NEG) Urine Urobilinogen Dipstick 0.2 mg/dL (0.2 mg/dL) Urine Leukocyte Esterase Moderate (NEG) Urine RBC 1-2 /HPF (0-2) Urine WBC 1-4 /HPF (0-4) Urine Squamous Epithelial Cells Mod /LPF Urine Bacteria Few /HPF (0-FEW) Urine Mucus Slight /LPF Urine Opiates Screen Neg (NEG) Urine Methadone Screen Neg (NEG) Urine Barbiturates Neg (NEG) Urine Phencyclidine Screen Neg (NEG) Urine Amphetamine/Methamphetamine Neg (NEG) Urine Benzodiazepines Screen Neg (NEG) Urine Cocaine Screen Neg (NEG) Urine Cannabinoids Screen Pos (NEG) Urine Ethyl Alcohol Neg (NEG) Urine Test Negative (NEG) Laboratory Tests 07/14/17 01:42 Laboratory Tests 07/14/17 01:42 EKG EKG [] Radiology/Procedures Radiology/Procedures [] Impressions: Intractable nausea vomiting Marijuana abuse Course & Med Decision Making Course & Med Decision Making Pertinent Labs and Imaging studies reviewed. (See chart for details) Patient is well-known to this facility for her cyclic vomiting syndrome. She was seen multiple times in the last week today she doesn't feel well enough to go home after she received Dilaudid, Benadryl, Reglan, Zofran and 2 L of fluids. Her labs are nonacute. Patient is being admitted to in stable condition at this time. Interim orders have been written and pain meds have been ordered per hospitalist directions. Ce Disclaimer Ce Disclaimer This electronic medical record was generated, in whole or in part, using a voice recognition dictation system. Departure Departure Impression: Primary Impression: Intractable nausea and vomiting Disposition: ADMITTED INPATIENT Admitting Physician: Other Condition: STABLE Referrals: NO PCP (PCP) Problem Qualifiers Primary Impression: Intractable nausea and vomiting Vomiting type: cyclical vomiting Qualified Codes: G43.A1 - Cyclical vomiting , intractable NATALIE DOTY MD Jul 14, 2017 08:02
[2017-07-14] MEDS: HYDROmorphone 2 MG/ML VIAL IV/SQ PRN ×3 (08:07→11:05)
[2017-07-14 08:14] LABS: BACTERIA,URINE FEW /HPF (0-FEW)
[2017-07-14 08:16] LABS: NEG OBC UR NEG; POS OBC UR POS
[2017-07-14 08:19] LABS: CALCIUM 9.8 mg/dL (8.5-10.1); CREATININE 0.8 mg/dL (0.6-1.0); GFR 88.1; POTASSIUM 3.4 mmol/L (3.5-5.1)
[2017-07-14 08:19] LABS: BARBITURATES NEG (NEG); BENZODIAZEPINES NEG (NEG); CANNABINOIDS POS (NEG); COCAINE NEG (NEG); METHADONE NEG (NEG); OPIATES NEG (NEG); PHENCYCLIDINE NEG (NEG); SQUAMOUS EPITHELIAL CELL,UR MOD /LPF
[2017-07-14 08:25] LABS: ALBUMIN 4.6 g/dL (3.4-5.0); DIRECT BILIRUBIN 0.2 mg/dL (0.0-0.2); TOTAL BILIRUBIN 1.1 mg/dL (0.2-1.0)
[2017-07-14] MEDS ORDERED: ONDANSETRON PF 4 MG/2 ML VIAL. IV ONE (09:15)
[2017-07-14] MEDS ORDERED: IV NORMAL SALINE 1000ML BAG 1,000 ML IV ONE (10:00)
[2017-07-14] MEDS ORDERED: IV DEXTROSE 5 %-0.45 % NACL 1,000 ML IV ONE (11:00)
[2017-07-14] MEDS ORDERED: ONDANSETRON PF 4 MG/2 ML VIAL. IV PRN (11:00)
[2017-07-14] MEDS: PROCHLORPERAZINE 10 MG/2 ML VIAL. IV PRN ×2 (12:25→20:41)
[2017-07-14] MEDS: MORPHINE SULFATE 4 MG/ML DISP.SYRIN. IV PRN ×3 (12:25→20:41)
[2017-07-14 13:19] VITALS: BP 112/63
[2017-07-14 15:00] VITALS: BP 120/69
[2017-07-14] MEDS: ONDANSETRON PF 4 MG/2 ML VIAL. IV PRN (16:46)
[2017-07-14 19:00] VITALS: BP 105/60
--- NOTE | 2017-07-14 19:19 | HP ---
ADMIT DATE: CHIEF COMPLAINT: Nausea, vomiting, diarrhea. HISTORY OF PRESENT ILLNESS: The patient is a 22-year-old woman, well known to our service with cyclical vomiting syndrome. She apparently had been in the Emergency Room 4 times over the past month with same symptoms. At this time, however, started vomiting again during the night, multiple episodes and also having diarrhea, which is fairly typical for her presentation. She tried taking Phenergan suppository, which did not work secondary to her diarrhea. Her secret recipe that seems to help is Dilaudid, Benadryl and Reglan. She is therefore admitted for her symptoms once again. PAST MEDICAL HISTORY: Cyclic vomiting syndrome, anxiety, panic attacks. PAST SURGICAL HISTORY: She is status post cholecystectomy. FAMILY HISTORY: Unknown to her. SOCIAL HISTORY: She is . Denies any alcohol or tobacco, but does smoke marijuana. Denies any possibility of this being related to her cyclic vomiting. ALLERGIES: No known drug allergies. MEDICATIONS: MAR reconciled with home medications. REVIEW OF SYSTEMS: Positive as per HPI. Rest of organ system review is negative. PHYSICAL EXAMINATION: VITAL SIGNS: From today show blood pressure of 112/63, heart rate of 80, respiratory rate at 20. She is afebrile. GENERAL: This is a well-nourished 22-year-old woman, alert and oriented, in no acute distress. HEENT: Shows no scleral icterus. NECK: Supple. LUNGS: Clear. HEART: Has regular rate and rhythm. ABDOMEN: Has positive bowel sounds. Tenderness to palpation in the middle abdomen. No organomegaly is palpable. EXTREMITIES: Show no edema. SKIN: Warm, soft and dry without any rash. LABORATORY DATA: CBC with a WBC of 6.1, hemoglobin 14.7, platelets of 211. Chemistries with a BUN and creatinine of 8 and 0.8, potassium at 3.4, total bilirubin at 1.1, slightly above her usual. Other LFTs; however, within normal limits. Tox screen positive for cannabinoids. UA with severely concentrated specific gravity at greater than 1.030. No sign of infection, however. IMAGING: Acute abdomen series shows no radiographic evidence of bowel obstruction. Moderate stool with ascending, descending and sigmoid colon. ASSESSMENT AND PLAN: The patient is a 22-year-old woman presenting with cyclic vomiting syndrome. We will try and control this with IV Phenergan and Zofran. She will receive IV morphine 1 q.4 hours p.r.n. We will try and avoid significant amounts of narcotics given that she is already constipated appearing on GI series. She will receive Ativan x 1 now to help her with nausea as well as anxiety. She will remain n.p.o. until symptoms improve. She hopefully will be able to tolerate at least her oral medications. ERICA DUCKWORTH MD DR: UR/nts JOB#: [id number] / [id number] [place]
[2017-07-14] MEDS: HYDROmorphone 2 MG/ML VIAL IV PRN (21:25)
[2017-07-14] MEDS ORDERED: DOCUSATE SODIUM 100 MG CAPSULE. PO PRN (21:45)
[2017-07-14] MEDS ORDERED: POLYETHYLENE GLYCOL 3350 17 GM PACKET. PO ONE (22:00)
[2017-07-14 23:00] VITALS: BP 104/48
[2017-07-15] MEDS ORDERED: ACETAMINOPHEN 325 MG TABLET. PO PRN (00:15)
[2017-07-15] MEDS: HYDROmorphone 2 MG/ML VIAL IV PRN ×5 (01:30→20:52)
[2017-07-15 03:00] VITALS: BP 95/46
[2017-07-15 05:07] LABS: BASO % 0 % (0-3); EOS % 1 % (0-3); LYMPH # 2.6 x10^3/uL (1.0-4.8); LYMPH % 41 % (24-48); MEAN CORPUSCULAR HEMOGLOBIN 30 pg (25-35); MEAN CORPUSCULAR HGB CONC 34 g/dL (31-37); MEAN CORPUSCULAR VOLUME 89 fL (79-100); MONO % 9 % (0-9); NEUT % 49 % (31-73); PLATELET COUNT 150 x10^3/uL (140-400); RED BLOOD COUNT 3.96 x10^6/uL (3.50-5.40); RED CELL DISTRIBUTION WIDTH 13.2 % (11.5-14.5); WHITE BLOOD COUNT 6.2 x10^3/uL (4.0-11.0)
[2017-07-15 05:14] LABS: CALCIUM 8.2 mg/dL (8.5-10.1); CREATININE 0.6 mg/dL (0.6-1.0); GFR 122.8; POTASSIUM 3.1 mmol/L (3.5-5.1)
[2017-07-15 07:30] VITALS: BP 107/68
[2017-07-15] MEDS: PROCHLORPERAZINE 10 MG/2 ML VIAL. IV PRN ×2 (07:39→15:07)
[2017-07-15] MEDS ORDERED: POLYETHYLENE GLYCOL 3350 17 GM PACKET. PO SCH (09:00)
[2017-07-15] MEDS ORDERED: DOCUSATE SODIUM 100 MG CAPSULE. PO SCH (09:00)
[2017-07-15 10:30] VITALS: BP 109/64
--- NOTE | 2017-07-15 10:58 | PDOC ---
PROGRESS NOTES Chief Complaint Chief Complaint Cyclic vomiting syndrome. ASSESSMENT AND PLAN: 1. N/V: states she responds best to IV reglan. 2. Abd pain: states she responds only to dilaudid. able to move in bed, rearranging pillows, blankets w/o difficulties 3. Nutrition: clear liquids, advance as tolerated. cont IVF for now. 4. discussed potential causality of cannabis in her recurrent sx. she is willing to stay off for a while, convinced it is not related. History of Present Illness History of Present Illness sl improved, no N/V ongoing Vitals Vitals Vital Signs Date Time Temp Pulse Resp B/P (MAP) Pulse Ox O2 Delivery O2 Flow Rate FiO2 07/15/17 10:30 97.7 74 18 109/64 (79) 97 Room Air 97.7 Physical Exam General: Alert, Oriented X3, Cooperative, No acute distress Heart: Regular rate Lungs: Clear, Other Abdomen: Other (mild TTP throughout) Extremities: No clubbing, No edema Skin: No rashes Labs LABS Laboratory Tests Test 07/15/17 03:55 White Blood Count 6.2 x10^3/uL (4.0-11.0) Red Blood Count 3.96 x10^6/uL (3.50-5.40) Hemoglobin 12.0 g/dL (12.0-15.5) Hematocrit 35.0 % (36.0-47.0) Mean Corpuscular Volume 89 fL (79-100) Mean Corpuscular Hemoglobin 30 pg (25-35) Mean Corpuscular Hemoglobin Concent 34 g/dL (31-37) Red Cell Distribution Width 13.2 % (11.5-14.5) Platelet Count 150 x10^3/uL (140-400) Neutrophils (%) (Auto) 49 % (31-73) Lymphocytes (%) (Auto) 41 % (24-48) Monocytes (%) (Auto) 9 % (0-9) Eosinophils (%) (Auto) 1 % (0-3) Basophils (%) (Auto) 0 % (0-3) Neutrophils # (Auto) 3.0 x10^3uL (1.8-7.7) Lymphocytes # (Auto) 2.6 x10^3/uL (1.0-4.8) Monocytes # (Auto) 0.5 x10^3/uL (0.0-1.1) Eosinophils # (Auto) 0.1 x10^3/uL (0.0-0.7) Basophils # (Auto) 0.0 x10^3/uL (0.0-0.2) Sodium Level 143 mmol/L (136-145) Potassium Level 3.1 mmol/L (3.5-5.1) Chloride Level 106 mmol/L (98-107) Carbon Dioxide Level 26 mmol/L (21-32) Anion Gap 11 (6-14) Blood Urea Nitrogen 3 mg/dL (7-20) Creatinine 0.6 mg/dL (0.6-1.0) Estimated GFR (Cockcroft-Gault) 122.8 Glucose Level 88 mg/dL (70-99) Calcium Level 8.2 mg/dL (8.5-10.1) ERICA DUCKWORTH MD Jul 15, 2017 10:58
[2017-07-15] MEDS ORDERED: POTASSIUM CHLORIDE 10MEQ 100 ML IV SCH (11:00)
[2017-07-15] MEDS ORDERED: POTASSIUM CHLORIDE 20 MEQ TABLET.ER. PO ONE (13:00)
[2017-07-15 14:30] VITALS: BP 111/61
[2017-07-15] MEDS: POTASSIUM CHLORIDE 30 MEQ in IV 1/2 NORMAL SALINE 1,000 ML IV SCH (15:07)
[2017-07-15 19:00] VITALS: BP 117/67
[2017-07-15] MEDS: ONDANSETRON PF 4 MG/2 ML VIAL. IV PRN (20:52)
[2017-07-15 22:59] VITALS: BP 107/68
[2017-07-16] MEDS: HYDROmorphone 2 MG/ML VIAL IV PRN ×5 (02:55→20:40)
[2017-07-16 03:00] VITALS: BP 97/45
[2017-07-16] MEDS: ONDANSETRON PF 4 MG/2 ML VIAL. IV PRN ×2 (05:24→20:40)
[2017-07-16 05:45] LABS: BASO % 0 % (0-3); EOS % 1 % (0-3); HEMATOCRIT 37.5 % (36.0-47.0); HEMOGLOBIN 12.8 g/dL (12.0-15.5); LYMPH # 1.9 x10^3/uL (1.0-4.8); LYMPH % 32 % (24-48); MEAN CORPUSCULAR HEMOGLOBIN 30 pg (25-35); MEAN CORPUSCULAR HGB CONC 34 g/dL (31-37); MEAN CORPUSCULAR VOLUME 89 fL (79-100); MONO % 9 % (0-9); NEUT % 58 % (31-73); PLATELET COUNT 148 x10^3/uL (140-400); RED BLOOD COUNT 4.21 x10^6/uL (3.50-5.40); RED CELL DISTRIBUTION WIDTH 13.1 % (11.5-14.5)
[2017-07-16 06:24] LABS: CALCIUM 8.9 mg/dL (8.5-10.1); CREATININE 0.6 mg/dL (0.6-1.0); GFR 122.8; MAGNESIUM 1.6 mg/dL (1.8-2.4)
[2017-07-16 07:00] VITALS: BP_SYST 83; BP_DIAS 40; BP_DIAS 44
[2017-07-16] MEDS: POTASSIUM CHLORIDE 30 MEQ in IV 1/2 NORMAL SALINE 1,000 ML IV SCH ×2 (07:07→20:46)
[2017-07-16] MEDS: PROCHLORPERAZINE 10 MG/2 ML VIAL. IV PRN ×2 (10:09→16:04)
--- NOTE | 2017-07-16 10:22 | PDOC ---
PROGRESS NOTES Chief Complaint Chief Complaint Cyclic vomiting syndrome. ASSESSMENT AND PLAN: 1. N/V: states she responds best to IV reglan. 2. Abd pain: states she responds only to dilaudid. able to move in bed, rearranging pillows, blankets w/o difficulties 3. Nutrition: clear liquids, advance as tolerated. cont IVF for now. 4. discussed potential causality of cannabis in her recurrent sx. she is willing to stay off for a while, convinced it is not related. History of Present Illness History of Present Illness N/V ongoing co pain Vitals Vitals Vital Signs Date Time Temp Pulse Resp B/P (MAP) Pulse Ox O2 Delivery O2 Flow Rate FiO2 07/16/17 08:00 Room Air 07/16/17 07:00 83/44 (57) 07/16/17 07:00 98.3 60 18 93 98.3 Physical Exam General: Alert, Oriented X3, Cooperative, No acute distress Heart: Regular rate Lungs: Clear, Other Abdomen: Other (mild TTP throughout) Extremities: No clubbing, No edema Skin: No rashes Labs LABS Laboratory Tests Test 07/16/17 05:05 White Blood Count 6.0 x10^3/uL (4.0-11.0) Red Blood Count 4.21 x10^6/uL (3.50-5.40) Hemoglobin 12.8 g/dL (12.0-15.5) Hematocrit 37.5 % (36.0-47.0) Mean Corpuscular Volume 89 fL (79-100) Mean Corpuscular Hemoglobin 30 pg (25-35) Mean Corpuscular Hemoglobin Concent 34 g/dL (31-37) Red Cell Distribution Width 13.1 % (11.5-14.5) Platelet Count 148 x10^3/uL (140-400) Neutrophils (%) (Auto) 58 % (31-73) Lymphocytes (%) (Auto) 32 % (24-48) Monocytes (%) (Auto) 9 % (0-9) Eosinophils (%) (Auto) 1 % (0-3) Basophils (%) (Auto) 0 % (0-3) Neutrophils # (Auto) 3.4 x10^3uL (1.8-7.7) Lymphocytes # (Auto) 1.9 x10^3/uL (1.0-4.8) Monocytes # (Auto) 0.5 x10^3/uL (0.0-1.1) Eosinophils # (Auto) 0.0 x10^3/uL (0.0-0.7) Basophils # (Auto) 0.0 x10^3/uL (0.0-0.2) Sodium Level 141 mmol/L (136-145) Potassium Level 4.0 mmol/L (3.5-5.1) Chloride Level 105 mmol/L (98-107) Carbon Dioxide Level 26 mmol/L (21-32) Anion Gap 10 (6-14) Blood Urea Nitrogen 3 mg/dL (7-20) Creatinine 0.6 mg/dL (0.6-1.0) Estimated GFR (Cockcroft-Gault) 122.8 Glucose Level 85 mg/dL (70-99) Calcium Level 8.9 mg/dL (8.5-10.1) Magnesium Level 1.6 mg/dL (1.8-2.4) Review of Systems Review of Systems co pain co nausea Assessment and Plan Assessmemt and Plan Problems Medical Problems: (1) Intractable nausea and vomiting Status: Acute Cyclic vomiting syndrome. ASSESSMENT AND PLAN: 1. N/V: states she responds best to IV reglan. 2. Abd pain: states she responds only to dilaudid. able to move in bed, rearranging pillows, blankets w/o difficulties 3. Nutrition: clear liquids, advance as tolerated. cont IVF for now. 4. discussed potential causality of cannabis in her recurrent sx. she is willing to stay off for a while, convinced it is not related. Problems: Comment Review of Relevant I have reviewed the following items miguel (where applicable) has been applied. Labs Laboratory Tests Test 07/15/17 03:55 07/16/17 05:05 White Blood Count 6.2 x10^3/uL (4.0-11.0) 6.0 x10^3/uL (4.0-11.0) Red Blood Count 3.96 x10^6/uL (3.50-5.40) 4.21 x10^6/uL (3.50-5.40) Hemoglobin 12.0 g/dL (12.0-15.5) 12.8 g/dL (12.0-15.5) Hematocrit 35.0 % (36.0-47.0) 37.5 % (36.0-47.0) Mean Corpuscular Volume 89 fL (79-100) 89 fL (79-100) Mean Corpuscular Hemoglobin 30 pg (25-35) 30 pg (25-35) Mean Corpuscular Hemoglobin Concent 34 g/dL (31-37) 34 g/dL (31-37) Red Cell Distribution Width 13.2 % (11.5-14.5) 13.1 % (11.5-14.5) Platelet Count 150 x10^3/uL (140-400) 148 x10^3/uL (140-400) Neutrophils (%) (Auto) 49 % (31-73) 58 % (31-73) Lymphocytes (%) (Auto) 41 % (24-48) 32 % (24-48) Monocytes (%) (Auto) 9 % (0-9) 9 % (0-9) Eosinophils (%) (Auto) 1 % (0-3) 1 % (0-3) Basophils (%) (Auto) 0 % (0-3) 0 % (0-3) Neutrophils # (Auto) 3.0 x10^3uL (1.8-7.7) 3.4 x10^3uL (1.8-7.7) Lymphocytes # (Auto) 2.6 x10^3/uL (1.0-4.8) 1.9 x10^3/uL (1.0-4.8) Monocytes # (Auto) 0.5 x10^3/uL (0.0-1.1) 0.5 x10^3/uL (0.0-1.1) Eosinophils # (Auto) 0.1 x10^3/uL (0.0-0.7) 0.0 x10^3/uL (0.0-0.7) Basophils # (Auto) 0.0 x10^3/uL (0.0-0.2) 0.0 x10^3/uL (0.0-0.2) Sodium Level 143 mmol/L (136-145) 141 mmol/L (136-145) Potassium Level 3.1 mmol/L (3.5-5.1) 4.0 mmol/L (3.5-5.1) Chloride Level 106 mmol/L (98-107) 105 mmol/L (98-107) Carbon Dioxide Level 26 mmol/L (21-32) 26 mmol/L (21-32) Anion Gap 11 (6-14) 10 (6-14) Blood Urea Nitrogen 3 mg/dL (7-20) 3 mg/dL (7-20) Creatinine 0.6 mg/dL (0.6-1.0) 0.6 mg/dL (0.6-1.0) Estimated GFR (Cockcroft-Gault) 122.8 122.8 Glucose Level 88 mg/dL (70-99) 85 mg/dL (70-99) Calcium Level 8.2 mg/dL (8.5-10.1) 8.9 mg/dL (8.5-10.1) Magnesium Level 1.6 mg/dL (1.8-2.4) Laboratory Tests Test 07/16/17 05:05 White Blood Count 6.0 x10^3/uL (4.0-11.0) Red Blood Count 4.21 x10^6/uL (3.50-5.40) Hemoglobin 12.8 g/dL (12.0-15.5) Hematocrit 37.5 % (36.0-47.0) Mean Corpuscular Volume 89 fL (79-100) Mean Corpuscular Hemoglobin 30 pg (25-35) Mean Corpuscular Hemoglobin Concent 34 g/dL (31-37) Red Cell Distribution Width 13.1 % (11.5-14.5) Platelet Count 148 x10^3/uL (140-400) Neutrophils (%) (Auto) 58 % (31-73) Lymphocytes (%) (Auto) 32 % (24-48) Monocytes (%) (Auto) 9 % (0-9) Eosinophils (%) (Auto) 1 % (0-3) Basophils (%) (Auto) 0 % (0-3) Neutrophils # (Auto) 3.4 x10^3uL (1.8-7.7) Lymphocytes # (Auto) 1.9 x10^3/uL (1.0-4.8) Monocytes # (Auto) 0.5 x10^3/uL (0.0-1.1) Eosinophils # (Auto) 0.0 x10^3/uL (0.0-0.7) Basophils # (Auto) 0.0 x10^3/uL (0.0-0.2) Sodium Level 141 mmol/L (136-145) Potassium Level 4.0 mmol/L (3.5-5.1) Chloride Level 105 mmol/L (98-107) Carbon Dioxide Level 26 mmol/L (21-32) Anion Gap 10 (6-14) Blood Urea Nitrogen 3 mg/dL (7-20) Creatinine 0.6 mg/dL (0.6-1.0) Estimated GFR (Cockcroft-Gault) 122.8 Glucose Level 85 mg/dL (70-99) Calcium Level 8.9 mg/dL (8.5-10.1) Magnesium Level 1.6 mg/dL (1.8-2.4) Medications Current Medications Hydromorphone HCl (Dilaudid) 0.5 mg PRN Q15MIN PRN IV/SQ PAIN GREATER THAN 3/ 10 Last administered on 07/14/17 11:05; Start 07/14/17 at 08:00; Stop 07/15/17 at 00:00; Status DC Sodium Chloride 1,000 ml @ 1,000 mls/hr Q1H IV Last administered on 07/14/17 08:08; Start 07/14/17 at 07:52; Stop 07/14/17 at 08:51; Status DC Diphenhydramine HCl (Benadryl) 25 mg 1X ONCE IVP Last administered on 08:07; Start 07/14/17 at 08:00; Stop 07/14/17 at 08:01; Status DC Metoclopramide HCl (Reglan) 10 mg 1X ONCE IV Last administered on 07/14/17 08 :06; Start 07/14/17 at 08:00; Stop 07/14/17 at 08:01; Status DC Ondansetron HCl (Zofran) 4 mg 1X ONCE IV Last administered on 07/14/17 09:14 ; Start 07/14/17 at 09:15; Stop 07/14/17 at 09:16; Status DC Sodium Chloride 1,000 ml @ 1,000 mls/hr 1X ONCE IV Last administered on 9/27/ 17at 09:58; Start 07/14/17 at 10:00; Stop 07/14/17 at 10:59; Status DC Ondansetron HCl (Zofran) 4 mg PRN Q8HRS PRN IV NAUSEA/VOMITING; Start 07/14/17 at 11:00; Stop 07/14/17 at 12:08; Status DC Morphine Sulfate 1 mg PRN Q4HRS PRN IV PAIN Last administered on 07/14/17 20: 41; Start 07/14/17 at 11:00; Stop 07/14/17 at 20:58; Status DC Dextrose/Sodium Chloride 1,000 ml @ 100 mls/hr 1X ONCE IV Last administered on 07/14/17 11:44; Start 07/14/17 at 11:00; Stop 07/14/17 at 20:59; Status DC Lorazepam (Ativan) 2 mg 1X ONCE IV Last administered on 07/14/17 12:14; Start 07/14/17 at 12:15; Stop 07/14/17 at 12:16; Status DC Ondansetron HCl (Zofran) 8 mg PRN Q8HRS PRN IV NAUSEA/VOMITING Last administered on 07/16/17 05:24; Start 07/14/17 at 12:15 Prochlorperazine Edisylate (Compazine) 10 mg PRN Q6HRS PRN IV NAUSEA/VOMITING Last administered on 07/16/17 10:09; Start 07/14/17 at 12:15 Hydromorphone HCl (Dilaudid) 0.5 mg PRN Q4HRS PRN IV SEVERE PAIN Last administered on 07/16/17 07:12; Start 07/14/17 at 21:00 Polyethylene Glycol (miraLAX PACKET) 17 gm 1X ONCE PO ; Start 07/14/17 at 22:00 ; Stop 07/14/17 at 22:01; Status DC Polyethylene Glycol (miraLAX PACKET) 17 gm DAILY PO ; Start 07/15/17 at 09:00; Stop 07/15/17 at 16:57; Status DC Docusate Sodium (Colace) 100 mg DAILY PO ; Start 07/15/17 at 09:00; Stop at 16:57; Status DC Docusate Sodium (Colace) 100 mg PRN DAILY PRN PO CONSTIPATION; Start 07/14/17 at 21:45 Acetaminophen (Tylenol) 650 mg PRN Q6HRS PRN PO MILD PAIN / TEMP Last administered on 07/15/17 00:21; Start 07/15/17 at 00:15 Potassium Chloride 100 ml @ 100 mls/hr Q1H IV Last administered on 07/15/17 11:24; Start 07/15/17 at 11:00; Stop 07/15/17 at 13:02; Status DC Potassium Chloride 30 meq/ Sodium Chloride 1,015 ml @ 75 mls/hr [id number] IV Last administered on 07/16/17 07:07; Start 07/15/17 at 11:00 Potassium Chloride (Klor-Con) 40 meq 1X ONCE PO Last administered on 15:07; Start 07/15/17 at 13:00; Stop 07/15/17 at 13:07; Status DC Lorazepam (Ativan) 1 mg 1X ONCE IV Last administered on 07/16/17 00:42; Start 07/15/17 at 21:30; Stop 07/15/17 at 21:31; Status DC Active Scripts Active Zofran Odt (Ondansetron) 4 Mg Tab.rapdis 8 Mg PO BID PRN Phenergan (Promethazine HCl) 25 Mg Supp.rect 25 Mg RC PRN Q6-8HRS PRN Amitriptyline Hcl 50 Mg Tablet 1 Tab PO QHS Vitals/I & O Vital Sign - Last 24 Hours 07/15/17 07/15/17 07/15/17 07/15/17 10:30 11:51 14:30 16:45 Temp 97.7 98.4 97.7 98.4 Pulse 74 82 Resp 18 18 B/P (MAP) 109/64 (79) 111/61 (78) Pulse Ox 97 97 O2 Delivery Room Air Room Air Room Air Room Air 07/15/17 07/15/17 07/15/17 07/15/17 19:00 20:00 20:52 22:59 Temp 98.8 97.9 98.8 97.9 Pulse 109 66 Resp 20 20 B/P (MAP) 117/67 (84) 107/68 (81) Pulse Ox 94 96 O2 Delivery Room Air Room Air Room Air Room Air 07/16/17 07/16/17 07/16/17 07/16/17 02:55 03:00 07:00 07:00 Temp 97.9 98.3 97.9 98.3 Pulse 80 60 Resp 20 18 B/P (MAP) 97/45 (62) 83/40 (54) 83/44 (57) Pulse Ox 96 93 O2 Delivery Room Air Room Air Room Air 07/16/17 07/16/17 07/16/17 07:12 07:45 08:00 O2 Delivery Room Air Room Air Room Air CHEYENNE LOYOLA III DO Jul 16, 2017 10:22
[2017-07-16 11:00] VITALS: BP 110/62
[2017-07-16 15:00] VITALS: BP 104/77
[2017-07-16 19:00] VITALS: BP 108/76
[2017-07-16 23:00] VITALS: BP 119/76
[2017-07-17] MEDS: HYDROmorphone 2 MG/ML VIAL IV PRN ×3 (00:52→09:57)
[2017-07-17] MEDS: PROCHLORPERAZINE 10 MG/2 ML VIAL. IV PRN (00:56)
[2017-07-17] MEDS: POTASSIUM CHLORIDE 30 MEQ in IV 1/2 NORMAL SALINE 1,000 ML IV SCH (03:20)
[2017-07-17] MEDS: ONDANSETRON PF 4 MG/2 ML VIAL. IV PRN (05:15)
[2017-07-17 05:22] VITALS: BP 114/76
[2017-07-17 07:00] VITALS: BP 97/64
[2017-07-17 11:00] VITALS: BP 109/64
--- NOTE | 2017-07-17 13:08 | PDOC ---
PROGRESS NOTES Chief Complaint Chief Complaint Cyclic vomiting syndrome. History of Present Illness History of Present Illness Pt presents with N/V and abd pain. Seen at bedside. She is sitting up in bed. No acute distress. States she is feeling quite well and is ready to go home. No acute findings at this time Vitals Vitals Vital Signs Date Time Temp Pulse Resp B/P (MAP) Pulse Ox O2 Delivery O2 Flow Rate FiO2 07/17/17 11:00 98.8 71 16 109/64 (79) 97 Room Air 98.8 07/17/17 00:52 4.0 Physical Exam General: Alert, Oriented X3, Cooperative, No acute distress Heart: Regular rate Lungs: Clear, Other Abdomen: Other (mild TTP throughout) Extremities: No clubbing, No edema Skin: No rashes Review of Systems Review of Systems General: + fatigue, +hunger CV: No CP or palpitations Resp: No SOB or wheezing GI: + nausea, denies vomiting or diarrhea. Denies abd pain Assessment and Plan Assessmemt and Plan Problems Medical Problems: (1) Intractable nausea and vomiting Status: Acute ASSESSMENT - nausea and vomiting - abd pain Plan: -IVFs -pain control -nausea control -nutrition via clear liquids, advance as tolerated -discussed potential causality of cannabis in her recurrent sx - The patient is at baseline, her labs are normal and she is feeling quite well. No vomiting or abd pain at this time. Plan for d/c to home. Problems: Comment Review of Relevant I have reviewed the following items miguel (where applicable) has been applied. Labs Laboratory Tests Test 07/16/17 05:05 White Blood Count 6.0 x10^3/uL (4.0-11.0) Red Blood Count 4.21 x10^6/uL (3.50-5.40) Hemoglobin 12.8 g/dL (12.0-15.5) Hematocrit 37.5 % (36.0-47.0) Mean Corpuscular Volume 89 fL (79-100) Mean Corpuscular Hemoglobin 30 pg (25-35) Mean Corpuscular Hemoglobin Concent 34 g/dL (31-37) Red Cell Distribution Width 13.1 % (11.5-14.5) Platelet Count 148 x10^3/uL (140-400) Neutrophils (%) (Auto) 58 % (31-73) Lymphocytes (%) (Auto) 32 % (24-48) Monocytes (%) (Auto) 9 % (0-9) Eosinophils (%) (Auto) 1 % (0-3) Basophils (%) (Auto) 0 % (0-3) Neutrophils # (Auto) 3.4 x10^3uL (1.8-7.7) Lymphocytes # (Auto) 1.9 x10^3/uL (1.0-4.8) Monocytes # (Auto) 0.5 x10^3/uL (0.0-1.1) Eosinophils # (Auto) 0.0 x10^3/uL (0.0-0.7) Basophils # (Auto) 0.0 x10^3/uL (0.0-0.2) Sodium Level 141 mmol/L (136-145) Potassium Level 4.0 mmol/L (3.5-5.1) Chloride Level 105 mmol/L (98-107) Carbon Dioxide Level 26 mmol/L (21-32) Anion Gap 10 (6-14) Blood Urea Nitrogen 3 mg/dL (7-20) Creatinine 0.6 mg/dL (0.6-1.0) Estimated GFR (Cockcroft-Gault) 122.8 Glucose Level 85 mg/dL (70-99) Calcium Level 8.9 mg/dL (8.5-10.1) Magnesium Level 1.6 mg/dL (1.8-2.4) Microbiology 07/14/17 Urine Culture - Final, Complete 07/14/17 Urine Culture Result 1 (JORGE) - Final, Complete Medications Current Medications Hydromorphone HCl (Dilaudid) 0.5 mg PRN Q15MIN PRN IV/SQ PAIN GREATER THAN 3/ 10 Last administered on 07/14/17 11:05; Start 07/14/17 at 08:00; Stop 07/15/17 at 00:00; Status DC Sodium Chloride 1,000 ml @ 1,000 mls/hr Q1H IV Last administered on 07/14/17 08:08; Start 07/14/17 at 07:52; Stop 07/14/17 at 08:51; Status DC Diphenhydramine HCl (Benadryl) 25 mg 1X ONCE IVP Last administered on 08:07; Start 07/14/17 at 08:00; Stop 07/14/17 at 08:01; Status DC Metoclopramide HCl (Reglan) 10 mg 1X ONCE IV Last administered on 07/14/17 08 :06; Start 07/14/17 at 08:00; Stop 07/14/17 at 08:01; Status DC Ondansetron HCl (Zofran) 4 mg 1X ONCE IV Last administered on 07/14/17 09:14 ; Start 07/14/17 at 09:15; Stop 07/14/17 at 09:16; Status DC Sodium Chloride 1,000 ml @ 1,000 mls/hr 1X ONCE IV Last administered on 09:58; Start 07/14/17 at 10:00; Stop 07/14/17 at 10:59; Status DC Ondansetron HCl (Zofran) 4 mg PRN Q8HRS PRN IV NAUSEA/VOMITING; Start 07/14/17 at 11:00; Stop 07/14/17 at 12:08; Status DC Morphine Sulfate 1 mg PRN Q4HRS PRN IV PAIN Last administered on 07/14/17 20: 41; Start 07/14/17 at 11:00; Stop 07/14/17 at 20:58; Status DC Dextrose/Sodium Chloride 1,000 ml @ 100 mls/hr 1X ONCE IV Last administered on 07/14/17 11:44; Start 07/14/17 at 11:00; Stop 07/14/17 at 20:59; Status DC Lorazepam (Ativan) 2 mg 1X ONCE IV Last administered on 07/14/17 12:14; Start 07/14/17 at 12:15; Stop 07/14/17 at 12:16; Status DC Ondansetron HCl (Zofran) 8 mg PRN Q8HRS PRN IV NAUSEA/VOMITING Last administered on 07/17/17 05:15; Start 07/14/17 at 12:15 Prochlorperazine Edisylate (Compazine) 10 mg PRN Q6HRS PRN IV NAUSEA/VOMITING Last administered on 07/17/17 00:56; Start 07/14/17 at 12:15 Hydromorphone HCl (Dilaudid) 0.5 mg PRN Q4HRS PRN IV SEVERE PAIN Last administered on 07/17/17 09:57; Start 07/14/17 at 21:00 Polyethylene Glycol (miraLAX PACKET) 17 gm 1X ONCE PO ; Start 07/14/17 at 22:00 ; Stop 07/14/17 at 22:01; Status DC Polyethylene Glycol (miraLAX PACKET) 17 gm DAILY PO ; Start 07/15/17 at 09:00; Stop 07/15/17 at 16:57; Status DC Docusate Sodium (Colace) 100 mg DAILY PO ; Start 07/15/17 at 09:00; Stop at 16:57; Status DC Docusate Sodium (Colace) 100 mg PRN DAILY PRN PO CONSTIPATION; Start 07/14/17 at 21:45 Acetaminophen (Tylenol) 650 mg PRN Q6HRS PRN PO MILD PAIN / TEMP Last administered on 07/15/17 00:21; Start 07/15/17 at 00:15 Potassium Chloride 100 ml @ 100 mls/hr Q1H IV Last administered on 07/15/17 11:24; Start 07/15/17 at 11:00; Stop 07/15/17 at 13:02; Status DC Potassium Chloride 30 meq/ Sodium Chloride 1,015 ml @ 75 mls/hr [id number] IV Last administered on 07/17/17 03:20; Start 07/15/17 at 11:00 Potassium Chloride (Klor-Con) 40 meq 1X ONCE PO Last administered on 15:07; Start 07/15/17 at 13:00; Stop 07/15/17 at 13:07; Status DC Lorazepam (Ativan) 1 mg 1X ONCE IV Last administered on 07/16/17 00:42; Start 07/15/17 at 21:30; Stop 07/15/17 at 21:31; Status DC Active Scripts Active Zofran Odt (Ondansetron) 4 Mg Tab.rapdis 8 Mg PO BID PRN Phenergan (Promethazine HCl) 25 Mg Supp.rect 25 Mg RC PRN Q6-8HRS PRN Amitriptyline Hcl 50 Mg Tablet 1 Tab PO QHS Vitals/I & O Vital Sign - Last 24 Hours 07/16/17 07/16/17 07/16/17 07/16/17 15:00 16:05 19:00 20:16 Temp 98.3 98.4 98.3 98.4 Pulse 83 78 Resp 18 16 B/P (MAP) 104/77 (86) 108/76 (87) Pulse Ox 98 98 O2 Delivery Room Air Room Air Room Air Room Air 07/16/17 07/16/17 07/17/17 07/17/17 20:40 23:00 00:52 03:00 Temp 98.3 98.3 98.3 98.3 Pulse 95 80 Resp 18 16 18 17 B/P (MAP) 119/76 (90) Pulse Ox 98 98 98 97 O2 Delivery Room Air Room Air Room Air Room Air O2 Flow Rate 4.0 07/17/17 07/17/17 07/17/17 07/17/17 05:14 05:22 05:49 07:00 Temp 97.9 97.9 Pulse 59 62 Resp 18 18 16 B/P (MAP) 114/76 (89) 97/64 (75) Pulse Ox 97 97 98 O2 Delivery Room Air Room Air Room Air 07/17/17 07/17/17 09:57 11:00 Temp 98.8 98.8 Pulse 71 Resp 20 16 B/P (MAP) 109/64 (79) Pulse Ox 93 97 O2 Delivery Room Air Room Air CHEYENNE LOYOLA III DO Jul 17, 2017 13:08
== END 2017-07-17 14:00 | disposition home or self-care (01) | DRG 103 ==
LOC: ER 07:34 → 5 NORTH 10:30 → OBSVTOIN 07-16 09:55
PROVIDERS: ADMIT Internal Medicine Hematology & Oncology; ATTEND Internal Medicine Hematology & Oncology
DX: G43.A0 Cyclical vomiting, in migraine, not intractable (principal); F41.0 Panic disorder [episodic paroxysmal anxiety]; F12.90 Cannabis use, unspecified, uncomplicated; Z90.49 Acquired absence of other specified parts of digestive tract
CPT/HCPCS: 36415; 80048; 80076; 80307; 81001; 81025; 82550; 83690; 83735; 85025; 87086; 96361; 96374; 96375; G0378; G0379; J0780; J1170; J1200; J2060; J2270; J2405; J2765; J3480; J7030; 99285-25; G0479

== ENCOUNTER 2017-07-19 06:46 | Inpatient (IN) | payer SELFPAY ==
[~2017-07-19] VITALS: Ht 162.6 cm; Wt 61.2 kg
--- NOTE | 2017-07-19 07:09 | PHYS DOC ---
Past Medical History Past Medical History: Anxiety, Other Additional Past Medical Histor: cyclic vomiting syndrome, PANIC ATTACKS Past Surgical History: Cholecystectomy Alcohol Use: None Drug Use: Marijuana Adult General Chief Complaint Chief Complaint: ABDOMINAL PAIN, vomiting HPI HPI Patient is a 22 year old female who presents with vomiting and abdominal pain that started around 1 am. Pt states shes had multiple episodes of vomiting, came in by EMS. Pt has had multiple prior episodes to this, reportedly h/o MJ use, last use 3.5 weeks ago. She was admitted earlier this month for the same. She doesn't have a current PCP, reports she had a new patient appointment this morning at 8am with [facility]. She was discharged from our hospital yesterday. Review of Systems Review of Systems Constitutional: Denies fever or chills Eyes: Denies eye pain or discharge HENT: Denies nasal congestion or sore throat Respiratory: Denies cough or shortness of breath [] Cardiovascular: Denies chest pain or edema GI: per hpi : Denies dysuria Musculoskeletal: Denies back pain Extremities: denies joint pain [] Integument: Denies rash Neurologic: Denies headache, denies focal weakness , denies sensory changes [] Current Medications Current Medications Current Medications Medications (Trade) Dose Ordered Sig/Arnaldo Start Time Stop Time Status Last Admin Dose Admin Ceftriaxone Sodium 50 ml @ 100 mls/hr 1X ONCE 07/19/17 07:30 07/19/17 07:59 DC 07/19/17 07:42 100 MLS/HR Haloperidol Lactate (Haldol) 5 mg 1X ONCE 07/19/17 07:15 07/19/17 07:16 DC 07/19/17 07:23 5 MG Ketamine HCl 20 mg 1X ONCE 07/19/17 07:45 07/19/17 07:47 DC 07/19/17 07:54 20 MG Ketorolac Tromethamine (Toradol) 30 mg 1X ONCE 07/19/17 08:30 07/19/17 08:31 DC 07/19/17 08:43 30 MG Lorazepam (Ativan) 1 mg 1X ONCE 07/19/17 08:45 07/19/17 08:46 DC 07/19/17 08:43 1 MG Prochlorperazine Edisylate (Compazine) 10 mg 1X ONCE 07/19/17 07:15 07/19/17 07:16 DC 07/19/17 07:23 10 MG Sodium Chloride 1,000 ml @ 1,000 mls/hr 1X ONCE 07/19/17 07:15 07/19/17 08:14 DC 07/19/17 07:23 1,000 MLS/HR Allergies Allergies Allergies Coded Allergies Type Severity Reaction Last Updated Verified coconut Allergy Severe Anaphylaxis 01/22/17 Yes Physical Exam Physical Exam Constitutional: Well developed, well nourished, appears to not feel well, no active vomiting HENT: Normocephalic, atraumatic, bilateral external ears normal, oropharynx moist, no oral exudates, nose normal. [] Eyes: PERRLA, EOMI, conjunctiva normal, no discharge. [] Neck: Normal range of motion, no tenderness, supple, no stridor. [] Cardiovascular:Heart rate regular with regular rhythm, no murmur [] Lungs & Thorax: Bilateral breath sounds clear to auscultation [] Abdomen: Bowel sounds normal, soft, nondistended, diffuse ttp nonfocal, neg mcburneys Skin: Warm, dry, no erythema, no rash. [] Back: No tenderness, no CVA tenderness. [] Extremities: No tenderness, no cyanosis, no clubbing, ROM intact, no edema. [] Neurologic: Alert and oriented X 3, normal motor function, normal sensory function, no focal deficits noted. [] Current Patient Data Vital Signs Vital Signs Date Time Temp Pulse Resp B/P (MAP) Pulse Ox O2 Delivery O2 Flow Rate FiO2 07/19/17 07:43 107 18 132/84 (100) 97 Room Air 07/19/17 06:46 98.2 98.2 Lab Values Laboratory Tests Test 07/19/17 07:05 07/19/17 07:15 07/19/17 07:16 Urine Collection Type Unknown Urine Color Yellow Urine Clarity Cloudy Urine pH 6.5 Urine Specific [place] 1.020 Urine Protein Negative mg/dL (NEG-TRACE) Urine Glucose (UA) Negative mg/dL (NEG) Urine Ketones (Stick) Trace mg/dL (NEG) Urine Blood Negative (NEG) Urine Nitrite Negative (NEG) Urine Bilirubin Negative (NEG) Urine Urobilinogen Dipstick 0.2 mg/dL (0.2 mg/dL) Urine Leukocyte Esterase Moderate (NEG) Urine RBC Occ /HPF (0-2) Urine WBC 11-20 /HPF (0-4) Urine Squamous Epithelial Cells Many /LPF Urine Bacteria Many /HPF (0-FEW) Urine Mucus Marked /LPF POC Urine HCG, Qualitative Hcg negative (Negative) White Blood Count 7.9 x10^3/uL (4.0-11.0) Red Blood Count 4.84 x10^6/uL (3.50-5.40) Hemoglobin 14.6 g/dL (12.0-15.5) Hematocrit 42.9 % (36.0-47.0) Mean Corpuscular Volume 89 fL (79-100) Mean Corpuscular Hemoglobin 30 pg (25-35) Mean Corpuscular Hemoglobin Concent 34 g/dL (31-37) Red Cell Distribution Width 13.5 % (11.5-14.5) Platelet Count 208 x10^3/uL (140-400) Neutrophils (%) (Auto) 61 % (31-73) Lymphocytes (%) (Auto) 29 % (24-48) Monocytes (%) (Auto) 9 % (0-9) Eosinophils (%) (Auto) 1 % (0-3) Basophils (%) (Auto) 0 % (0-3) Neutrophils # (Auto) 4.8 x10^3uL (1.8-7.7) Lymphocytes # (Auto) 2.3 x10^3/uL (1.0-4.8) Monocytes # (Auto) 0.7 x10^3/uL (0.0-1.1) Eosinophils # (Auto) 0.1 x10^3/uL (0.0-0.7) Basophils # (Auto) 0.0 x10^3/uL (0.0-0.2) POC Hemoglobin 14.3 g/dL (12-15) POC Hematocrit 42 % (36-40) H POC Sodium 140 mmol/L (135-145) POC Potassium 3.2 mmol/L (3.5-5.0) L POC Chloride 101 mmol/L (98-110) POC Total CO2 23 mmol/L (23-32) Anion Gap 20 mmol/L (6-14) H POC Blood Urea Nitrogen 6 mg/dL (8-26) L POC Creatinine 0.7 mg/dL (0.5-1.4) Glucose Level 118 mg/dL (70-99) H POC Ionized Calcium (Irving) 1.13 mmol/L (1.13-1.32) Laboratory Tests 07/19/17 07:15 Laboratory Tests 07/19/17 07:16 EKG EKG [] Radiology/Procedures Radiology/Procedures Two-view Abdomen upright and supine shows nonobstructive bowel gas pattern with moderate right-sided stool, IUD noted, interpreted by me Course & Med Decision Making Course & Med Decision Making Pertinent Labs and Imaging studies reviewed. (See chart for details) Patient initially given Compazine and Haldol for her symptoms, her vomiting appear to be well controlled, she stated her abdominal pain was not. IV ketamine 0.3 MG/KG was also given IV in a fluid bolus. Patient still states her pain was not controlled. IV Toradol ordered and abdominal x-ray was ordered. Patient had been given IV Rocephin for urinary tract infection. I spoke with Dr. Ascencio who accepted this patient for admission. I explained to the patient that we would avoid using narcotics for this acute on chronic exacerbation of symptoms. She was agreeable to this plan still wanted to be admitted. I contacted [facility] to cancel her appointment this morning and they stated she did not have an appointment. Patient reports that this wasn't an appointment but she was going to walk-in today. [place] Disclaimer Dragon Disclaimer This electronic medical record was generated, in whole or in part, using a voice recognition dictation system. Departure Departure Impression: Primary Impression: Abdominal pain Disposition: ADMITTED INPATIENT Admitting Physician: Christine Ascencio Condition: STABLE Referrals: NO PCP (PCP) RYAN SALAZAR MD Jul 19, 2017 07:08
[2017-07-19 07:14] LABS: BILIRUBIN,URINE NEGATIVE (NEG); GLUCOSE,URINE NEGATIVE (NEG); NITRITE,URINE NEGATIVE (NEG); PH,URINE 6.5; PROTEIN,URINE NEGATIVE (NEG-TRACE); UROBILINOGEN,URINE 0.2 mg/dL (0.2 mg/dL)
[2017-07-19] MEDS ORDERED: PROCHLORPERAZINE 10 MG/2 ML VIAL. IV ONE (07:15)
[2017-07-19] MEDS ORDERED: IV NORMAL SALINE 1000ML BAG 1,000 ML IV ONE ×2 (07:15→09:15)
[2017-07-19] MEDS ORDERED: HALOPERIDOL LACTATE 5 MG/ML VIAL. IVP ONE (07:15)
[2017-07-19 07:20] LABS: BACTERIA,URINE MANY /HPF (0-FEW); RBC,URINE OCC /HPF (0-2); SQUAMOUS EPITHELIAL CELL,UR MANY /LPF
[2017-07-19 07:21] LABS: POTASSIUM ISTAT 3.2 mmol/L (3.5-5.0)
[2017-07-19] MEDS ORDERED: KETAMINE HCL 500 MG/10 ML VIAL. IV ONE (07:45)
[2017-07-19] MEDS ORDERED: KETOROLAC 30 MG/ML INJ. IV ONE (08:30)
[2017-07-19 08:39] LABS: BASO % 0 % (0-3); EOS % 1 % (0-3); HEMATOCRIT 42.9 % (36.0-47.0); HEMOGLOBIN 14.6 g/dL (12.0-15.5); LYMPH # 2.3 x10^3/uL (1.0-4.8); LYMPH % 29 % (24-48); MEAN CORPUSCULAR HEMOGLOBIN 30 pg (25-35); MEAN CORPUSCULAR HGB CONC 34 g/dL (31-37); MEAN CORPUSCULAR VOLUME 89 fL (79-100); MONO % 9 % (0-9); NEUT % 61 % (31-73); PLATELET COUNT 208 x10^3/uL (140-400); RED BLOOD COUNT 4.84 x10^6/uL (3.50-5.40); RED CELL DISTRIBUTION WIDTH 13.5 % (11.5-14.5); WHITE BLOOD COUNT 7.9 x10^3/uL (4.0-11.0)
[2017-07-19] MEDS ORDERED: ACETAMINOPHEN 325 MG TABLET. PO PRN (09:15)
--- NOTE | 2017-07-19 09:22 | RAD ---
Abdomen, 2 views, 07/19/2017: History: Abdominal pain and vomiting An IUD is projected over the pelvis at the midline. There are surgical clips in the right upper quadrant compatible with a previous cholecystectomy. Gas is present in large and small bowel in a nonspecific pattern. No free air seen in the abdomen. There is no evidence of organomegaly. Left-sided pelvic calcifications are probably phleboliths. IMPRESSION: 1. An IUD is in place. 2. No acute abdominal abnormality is detected.
[2017-07-19 11:00] VITALS: BP 132/87
--- NOTE | 2017-07-19 11:27 | HP ---
ADMIT DATE: 07/19/2017 CHIEF COMPLAINT: Abdominal pain and nausea. HISTORY OF PRESENT ILLNESS: The patient is a pleasant middle-aged female, well known to our service. She has cyclic vomiting syndrome. Once again, she presents with nausea, vomiting and abdominal pain. I discussed the case with the ER physician. We are going to give her IV fluids and antiemetics and some pain medications. PAST MEDICAL HISTORY: Anxiety, cyclic vomiting syndrome, panic attacks and cholecystectomy. ALLERGIES: COCONUTS. FAMILY HISTORY: Diabetes. SOCIAL HISTORY: She does not drink, smoke or take drugs. MEDICATIONS: Reviewed. REVIEW OF SYSTEMS: GENERAL: No history of weight change, weakness or fevers. SKIN: No bruising, hair changes or rashes. EYES: No blurred, double or loss of vision. NOSE AND THROAT: No history of nosebleeds, hoarseness or sore throat. HEART: No history of palpitations, chest pain or shortness of breath on exertion. LUNGS: Denies cough, hemoptysis, wheezing or shortness of breath. GASTROINTESTINAL: She complains of abdominal pain and nausea. GENITOURINARY: No history of frequency, urgency, hesitancy or nocturia. NEUROLOGIC: Denies history of numbness, tingling, tremor or weakness. PSYCHIATRIC: No history of panic, anxiety or depression. ENDOCRINE: No history of heat or cold intolerance, polyuria or polydipsia. EXTREMITIES: Denies muscle weakness, joint pain, pain on walking or stiffness. PHYSICAL EXAMINATION: VITAL SIGNS: Temperature afebrile, pulse of 77, respirations 18 and blood pressure 144/67. GENERAL: She is alert, but complaining of pain. HEART: Normal S1, S2. LUNGS: Clear. ABDOMEN: Soft and tender. Decreased bowel sounds. EXTREMITIES: No edema. SKIN: No rashes. PSYCHIATRIC: She is depressed. VASCULAR: Good capillary refill. ENDOCRINE: No thyromegaly. LYMPHATICS: No cervical nodes. HEMATOPOIETIC: No bruising. ASSESSMENT AND PLAN: [id number] recurrence of cyclic vomiting syndrome. The patient has been admitted. We will give her p.r.n. narcotics, IV fluids and p.r.n. antiemetics. Consult GI. Continue home medicines. CHEYENNE LOYOLA DO DR: BYRON/rusty JOB#: [id number] / [id number]
[2017-07-19] MEDS: HYDROmorphone 2 MG/ML VIAL IV PRN ×3 (11:41→21:00)
--- NOTE | 2017-07-19 11:55 | PDOC2 ---
LIBBY CAO 07/19/17 1155: GI CONSULT Reason For Consult: Abd pain HPI: HPI: 22 y/o female who is frequently admitted w/ n/v and abd pain. Carries diagnosis of cyclic vomiting syndrome, says diagnosed ate age 10, doesn't remember where or by whom. Since GI has last evaluated her here at [facility], she has been in the ER 20 times. Last discharged 07/15. Has previously reported symptoms exacerbated by anxiety and improved w/ amitriptyline. On this occasion says mid abdominal pain and n/v began a couple days ago. Not able to tolerate PO. Feels flares occurring more frequently. Uninsured, had new pt appt w/ [facility] this morning - obviously missed because admitted here. Has been off of amitriptyline for awhile due to cost. Has Zofran available at home PRN. Occasional heartburn reported in the past and treated w/ Tums - hasn't been bothersome recently. Reports previous EGD by Dr. Nieto, not sure when - believes no significant findings. Last BM this morning, normal. Denies weight loss, diarrhea, constipation, hematemesis, hematochezia, melena. No previously colonoscopy. S/p cholecystectomy. GES previously normal. No NSAID use. Denies marijuana use; however, each time tox screen has been checked here (15 times), has been positive for cannabinoids. The possibility of cannabis hyperemesis syndrome has been raised previously. Most recent imaging as below. Recalls no previous head imaging. PMH: PMH: cyclic vomiting syndrome, asthma, substance abuse, anxiety/depression, IUD, cholecystectomy FH: Family History: No pertinent hx (denies GI cancers, IBD, Leo's, RA, Lupus) Social History: Smoke: No ALCOHOL: none Drugs: Marijuana ROS: GEN: Denies fevers, chills, sweats HEENT: Denies blurred vision, sore throat CV: Denies chest pain RESP: Denies shortness of air, cough GI: Per HPI : Denies hematuria, dysuria ENDO: Denies weight changes NEURO: Denies confusion, dizziness MSK: Denies weakness, joint pain/swelling SKIN: Denies jaundice, pruritus Vitals: Vitals: Vital Signs Date Time Temp Pulse Resp B/P (MAP) Pulse Ox O2 Delivery O2 Flow Rate FiO2 10/2/17 11:00 98.4 109 18 132/87 (102) 98 Room Air 98.4 Labs: Labs: Laboratory Tests Test 07/19/17 07:05 07/19/17 07:15 07/19/17 07:16 Urine Collection Type Unknown Urine Color Yellow Urine Clarity Cloudy Urine pH 6.5 Urine Specific [place] 1.020 Urine Protein Negative mg/dL (NEG-TRACE) Urine Glucose (UA) Negative mg/dL (NEG) Urine Ketones (Stick) Trace mg/dL (NEG) Urine Blood Negative (NEG) Urine Nitrite Negative (NEG) Urine Bilirubin Negative (NEG) Urine Urobilinogen Dipstick 0.2 mg/dL (0.2 mg/dL) Urine Leukocyte Esterase Moderate (NEG) Urine RBC Occ /HPF (0-2) Urine WBC 11-20 /HPF (0-4) Urine Squamous Epithelial Cells Many /LPF Urine Bacteria Many /HPF (0-FEW) Urine Mucus Marked /LPF Bedside Urine HCG, Qualitative Hcg negative (Negative) White Blood Count 7.9 x10^3/uL (4.0-11.0) Red Blood Count 4.84 x10^6/uL (3.50-5.40) Hemoglobin 14.6 g/dL (12.0-15.5) Hematocrit 42.9 % (36.0-47.0) Mean Corpuscular Volume 89 fL (79-100) Mean Corpuscular Hemoglobin 30 pg (25-35) Mean Corpuscular Hemoglobin Concent 34 g/dL (31-37) Red Cell Distribution Width 13.5 % (11.5-14.5) Platelet Count 208 x10^3/uL (140-400) Neutrophils (%) (Auto) 61 % (31-73) Lymphocytes (%) (Auto) 29 % (24-48) Monocytes (%) (Auto) 9 % (0-9) Eosinophils (%) (Auto) 1 % (0-3) Basophils (%) (Auto) 0 % (0-3) Neutrophils # (Auto) 4.8 x10^3uL (1.8-7.7) Lymphocytes # (Auto) 2.3 x10^3/uL (1.0-4.8) Monocytes # (Auto) 0.7 x10^3/uL (0.0-1.1) Eosinophils # (Auto) 0.1 x10^3/uL (0.0-0.7) Basophils # (Auto) 0.0 x10^3/uL (0.0-0.2) Bedside Hemoglobin 14.3 g/dL (12-15) Bedside Hematocrit 42 % (36-40) Bedside Sodium 140 mmol/L (135-145) Bedside Potassium 3.2 mmol/L (3.5-5.0) Bedside Chloride 101 mmol/L (98-110) Bedside Total CO2 23 mmol/L (23-32) Anion Gap 20 mmol/L (6-14) Bedside Blood Urea Nitrogen 6 mg/dL (8-26) Bedside Creatinine 0.7 mg/dL (0.5-1.4) Glucose Level 118 mg/dL (70-99) Bedside Ionized Calcium (Irving) 1.13 mmol/L (1.13-1.32) Allergies: Coded Allergies: coconut (Verified Allergy, Severe, Anaphylaxis, 01/22/17) rash, hives, throat sweeling Medications: Current Medications Medications (Trade) Dose Ordered Sig/Arnaldo Route PRN Reason Start Time Stop Time Status Last Admin Dose Admin Haloperidol Lactate (Haldol) 5 mg 1X ONCE IVP 07/19/17 07:15 07/19/17 07:16 DC 07/19/17 07:23 Prochlorperazine Edisylate (Compazine) 10 mg 1X ONCE IV 07/19/17 07:15 07/19/17 07:16 DC 07/19/17 07:23 Sodium Chloride 1,000 ml @ 1,000 mls/hr 1X ONCE IV 07/19/17 07:15 07/19/17 08:14 DC 07/19/17 07:23 Ceftriaxone Sodium 50 ml @ 100 mls/hr 1X ONCE IV 07/19/17 07:30 07/19/17 07:59 DC 07/19/17 07:42 Ketamine HCl 20 mg 1X ONCE IV 07/19/17 07:45 07/19/17 07:47 DC 07/19/17 07:54 Ketorolac Tromethamine (Toradol) 30 mg 1X ONCE IV 07/19/17 08:30 07/19/17 08:31 DC 07/19/17 08:43 Lorazepam (Ativan) 1 mg 1X ONCE IV 07/19/17 08:45 07/19/17 08:46 DC 07/19/17 08:43 Sodium Chloride 1,000 ml @ 100 mls/hr 1X ONCE IV 07/19/17 09:15 07/19/17 19:14 07/19/17 09:28 Imaging: Imaging: Abd Supine & Upright 07/19/17 IMPRESSION: 1. An IUD is in place. 2. No acute abdominal abnormality is detected. CT A/P 06/08/17 Findings: Heart is normal in size. No pericardial or pleural effusion. Clear lung bases. Liver is normal in morphology without focal lesion. Spleen is not enlarged and show no focal lesion. Status post cholecystectomy. Pancreas is normal in morphology without peripancreatic inflammatory changes. Adrenal glands show no nodularity. No hydronephrosis or suspicious renal lesion. No bowel obstruction. Subtle enhancement of the duodenal mucosa noted with questionable mild duodenal wall thickening. No pathologically enlarged abdominal or pelvic lymph nodes. Uterus is anteverted with IUD in place. Bilateral ovaries are visualized. No free pelvic fluid. Bladder show no focal lesion. Straightening of the visualized spine. No suspicious bony lesion. Impression: 1. No bowel obstruction. 2. Mild mucosal enhancement of the duodenum with questionable wall thickening may represent duodenitis. GES 09/22/16 Discussion: There is normal emptying of gastric contents into the small bowel bowel. No reflux is identified. Time to half emptying of the stomach measures 44 minutes. (Normal 60 +/- 30 minutes). Impression: Normal gastric emptying study with time to half emptying measures 44 minutes. PE: GEN: NAD HEENT: atraumatic, PERRL LUNGS: clear HEART: tachycardic ABD: BS+, tender diffusely - periumbilical and BLQ prominent EXTREMITY: no edema SKIN: no rashes, no jaundice NEURO/PSYCH: A & O 3, eyes closed A/P: A/P: Recurrent n/v and abd pain -diagnosed w/ CVS at age 10 -recurrent ER evaluations and hospital admissions -previously she felt symptoms related to anxiety, amitriptyline helped but has been off this -- Difficulty w/o health insurance, non-compliance, financial concerns. Significant RLQ tenderness on exam - check CT A/P r/o appendicitis. Will check hepatic panel + amylase and lipase. Also, check DAJA and tomorrow a.m. fasting serum cortisol r/o Jerome's. Empiric IV H2 ashtyn. Pain control per primary. Has clears ordered - okay after CT. LUIS F HO MD 07/19/17 1243: GI CONSULT Allergies: Coded Allergies: coconut (Verified Allergy, Severe, Anaphylaxis, 01/22/17) rash, hives, throat sweeling LIBBY CAO Jul 19, 2017 11:55 LUIS F HO MD Jul 19, 2017 12:43
[2017-07-19] MEDS ORDERED: IOHEXOL 300 MG/ML 75 ML VIAL IV ONE (12:45)
[2017-07-19] MEDS ORDERED: CONTRAST GIVEN MC PRN (12:45)
[2017-07-19 12:48] LABS: ALBUMIN 4.6 g/dL (3.4-5.0); DIRECT BILIRUBIN 0.1 mg/dL (0.0-0.2); TOTAL BILIRUBIN 0.5 mg/dL (0.2-1.0); TOTAL PROTEIN 8.1 g/dL (6.4-8.2)
[2017-07-19] MEDS: FAMOTIDINE 20 MG/2 ML VIAL IVP SCH ×2 (14:15→21:01)
--- NOTE | 2017-07-19 14:29 | RAD ---
CT abdomen/pelvis Indication: Recurrent abdominal pain. Rule out appendicitis. Technique: CT abdomen/pelvis with 75 mL of Omnipaque 300 with multi planar reformats. Comparison: Previous CT from 06/08/2017 Findings: Heart is normal in size. No pericardial or pleural effusion. Clear lung bases. Liver is normal in morphology without focal lesion. Spleen is within normal limits. Status post cholecystectomy. No intrahepatic or extrahepatic biliary duct dilation. Pancreas is within normal limits. Adrenal glands show no nodularity. No suspicious renal lesion. No retroperitoneal or pelvic adenopathy. Appendix is not visualized. No bowel obstruction. No abnormal bowel wall thickening or enhancement. No right lower quadrant inflammatory changes. Uterus is anteverted with IUD in place. Bilateral ovaries are visualized and are within normal limits. No free pelvic fluid. Bladder is within normal limits. No abdominal hernias. No suspicious bony lesion. Impression: 1. Appendix not visualized. However, no right lower quadrant inflammatory changes to suggest appendicitis. 2. No bowel obstruction. PQRS Compliance Statement: One or more of the following individualized dose reduction techniques were utilized for this examination: 1. Automated exposure control 2. Adjustment of the mA and/or kV according to patient size 3. Use of iterative reconstruction technique
[2017-07-19 15:00] VITALS: BP 139/104
[2017-07-19 19:15] VITALS: BP 135/101
[2017-07-19] MEDS: IV NORMAL SALINE 1000ML BAG 1,000 ML IV SCH (21:01)
[2017-07-19 23:10] VITALS: BP 137/98
[2017-07-20] MEDS: IV NORMAL SALINE 1000ML BAG 1,000 ML IV SCH ×2 (00:35→21:09)
[2017-07-20 03:15] VITALS: BP 164/98
[2017-07-20] MEDS: HYDROmorphone 2 MG/ML VIAL IV PRN ×5 (05:10→21:08)
[2017-07-20 07:00] VITALS: BP 99/48
[2017-07-20] MEDS: FAMOTIDINE 20 MG/2 ML VIAL IVP SCH ×2 (09:02→21:07)
[2017-07-20 11:00] VITALS: BP 112/82
--- NOTE | 2017-07-20 11:03 | PDOC ---
PROGRESS NOTES Chief Complaint Chief Complaint abdominal pain History of Present Illness History of Present Illness Patient laying down in bed in moderate distress. Patient said she had abdominal pain around the umbilicus and said it was "deep in there". UA obtained 07/19/17 negative for hcg but positive for bacteria, moderate leukocyte esterase present , cloudy in color w/ pH 6.5 Patient denied pain or trouble with urination. Vitals Vitals Vital Signs Date Time Temp Pulse Resp B/P (MAP) Pulse Ox O2 Delivery O2 Flow Rate FiO2 07/20/17 09:02 99 Room Air 07/20/17 07:00 98.3 80 16 99/48 (65) 98.3 Physical Exam Physical Exam Patient groggy with slow verbal responses. Abdomen tender to moderate palpation with no bruising or discoloration around umbilicus or flanks. Patient complained of rebound tenderness when exam performed, but said it was the same pain she usually gets. General: Cooperative, moderate distress Heart: Regular rate Lungs: Clear, Other Abdomen: Normal bowel sounds, Soft, No masses, Other (tender to moderate palpation all 4 quadrants. ) Extremities: No clubbing, No cyanosis, Normal pulses Skin: No rashes, No breakdown, No significant lesion Review of Systems Review of Systems Patient tired. Patient hungry. Assessment and Plan Assessmemt and Plan Problems Medical Problems: (1) Abdominal pain Status: Acute Assessment: abdominal pain Plan: 1. Order levoquin 500mg q 24 hrs IV for UTI 2. Continue with IV NS 3. Order ondansetron for emesis. 4. Continue diet as tolerated. 5. Appreciate GI plan. 6. Continue home meds. Problems: Comment Review of Relevant I have reviewed the following items miguel (where applicable) has been applied. Labs Laboratory Tests Test 07/19/17 07:05 07/19/17 07:15 07/19/17 07:16 07/19/17 07:17 Urine Collection Type Unknown Urine Color Yellow Urine Clarity Cloudy Urine pH 6.5 Urine Specific Wayne 1.020 Urine Protein Negative mg/dL (NEG-TRACE) Urine Glucose (UA) Negative mg/dL (NEG) Urine Ketones (Stick) Trace mg/dL (NEG) Urine Blood Negative (NEG) Urine Nitrite Negative (NEG) Urine Bilirubin Negative (NEG) Urine Urobilinogen Dipstick 0.2 mg/dL (0.2 mg/dL) Urine Leukocyte Esterase Moderate (NEG) Urine RBC Occ /HPF (0-2) Urine WBC 11-20 /HPF (0-4) Urine Squamous Epithelial Cells Many /LPF Urine Bacteria Many /HPF (0-FEW) Urine Mucus Marked /LPF Bedside Urine HCG, Qualitative Hcg negative (Negative) White Blood Count 7.9 x10^3/uL (4.0-11.0) Red Blood Count 4.84 x10^6/uL (3.50-5.40) Hemoglobin 14.6 g/dL (12.0-15.5) Hematocrit 42.9 % (36.0-47.0) Mean Corpuscular Volume 89 fL (79-100) Mean Corpuscular Hemoglobin 30 pg (25-35) Mean Corpuscular Hemoglobin Concent 34 g/dL (31-37) Red Cell Distribution Width 13.5 % (11.5-14.5) Platelet Count 208 x10^3/uL (140-400) Neutrophils (%) (Auto) 61 % (31-73) Lymphocytes (%) (Auto) 29 % (24-48) Monocytes (%) (Auto) 9 % (0-9) Eosinophils (%) (Auto) 1 % (0-3) Basophils (%) (Auto) 0 % (0-3) Neutrophils # (Auto) 4.8 x10^3uL (1.8-7.7) Lymphocytes # (Auto) 2.3 x10^3/uL (1.0-4.8) Monocytes # (Auto) 0.7 x10^3/uL (0.0-1.1) Eosinophils # (Auto) 0.1 x10^3/uL (0.0-0.7) Basophils # (Auto) 0.0 x10^3/uL (0.0-0.2) Bedside Hemoglobin 14.3 g/dL (12-15) Bedside Hematocrit 42 % (36-40) Bedside Sodium 140 mmol/L (135-145) Bedside Potassium 3.2 mmol/L (3.5-5.0) Bedside Chloride 101 mmol/L (98-110) Bedside Total CO2 23 mmol/L (23-32) Anion Gap 20 mmol/L (6-14) Bedside Blood Urea Nitrogen 6 mg/dL (8-26) Bedside Creatinine 0.7 mg/dL (0.5-1.4) Glucose Level 118 mg/dL (70-99) Bedside Ionized Calcium (Irving) 1.13 mmol/L (1.13-1.32) Total Bilirubin 0.5 mg/dL (0.2-1.0) Direct Bilirubin 0.1 mg/dL (0.0-0.2) Aspartate Amino Transf (AST/SGOT) 16 U/L (15-37) Alanine Aminotransferase (ALT/SGPT) 22 U/L (14-59) Alkaline Phosphatase 70 U/L (46-116) Total Protein 8.1 g/dL (6.4-8.2) Albumin 4.6 g/dL (3.4-5.0) Amylase Level 39 U/L (25-115) Lipase 309 U/L (73-393) Medications Current Medications Haloperidol Lactate (Haldol) 5 mg 1X ONCE IVP Last administered on 07/19/17 07:23; Start 07/19/17 at 07:15; Stop 07/19/17 at 07:16; Status DC Prochlorperazine Edisylate (Compazine) 10 mg 1X ONCE IV Last administered on 07/19/17 07:23; Start 07/19/17 at 07:15; Stop 07/19/17 at 07:16; Status DC Sodium Chloride 1,000 ml @ 1,000 mls/hr 1X ONCE IV Last administered on 07:23; Start 07/19/17 at 07:15; Stop 07/19/17 at 08:14; Status DC Ceftriaxone Sodium 50 ml @ 100 mls/hr 1X ONCE IV Last administered on 07:42; Start 07/19/17 at 07:30; Stop 07/19/17 at 07:59; Status DC Ketamine HCl 20 mg 1X ONCE IV Last administered on 07/19/17 07:54; Start 07/19/17 at 07:45; Stop 07/19/17 at 07:47; Status DC Ketorolac Tromethamine (Toradol) 30 mg 1X ONCE IV Last administered on 08:43; Start 07/19/17 at 08:30; Stop 07/19/17 at 08:31; Status DC Lorazepam (Ativan) 1 mg 1X ONCE IV Last administered on 07/19/17 08:43; Start 07/19/17 at 08:45; Stop 07/19/17 at 08:46; Status DC Acetaminophen (Tylenol) 650 mg PRN Q4HRS PRN PO FEVER, PAIN; Start 07/19/17 at 09:15; Stop 07/20/17 at 09:14; Status DC Sodium Chloride 1,000 ml @ 100 mls/hr 1X ONCE IV Last administered on 09:28; Start 07/19/17 at 09:15; Stop 07/19/17 at 19:14; Status DC Sodium Chloride 1,000 ml @ 75 mls/hr [id number] IV Last administered on 21:01; Start 07/19/17 at 11:15 Hydromorphone HCl (Dilaudid) 1 mg PRN Q4HRS PRN IV PAIN Last administered on 09:02; Start 07/19/17 at 11:30 Iohexol (Omnipaque 300 Mg/ml) 75 ml 1X ONCE IV Last administered on 07/19/17 13:37; Start 07/19/17 at 12:45; Stop 07/19/17 at 12:46; Status DC Info (Do NOT chart on this entry -- for MONITORING) 1 each PRN DAILY PRN MC SEE COMMENTS; Start 07/19/17 at 12:45; Stop 07/21/17 at 12:44 Famotidine (Pepcid) 20 mg BID IVP Last administered on 07/20/17 09:02; Start 07/19/17 at 13:00 Active Scripts Active Zofran Odt (Ondansetron) 4 Mg Tab.rapdis 8 Mg PO BID PRN Phenergan (Promethazine HCl) 25 Mg Supp.rect 25 Mg RC PRN Q6-8HRS PRN Amitriptyline Hcl 50 Mg Tablet 1 Tab PO QHS Vitals/I & O Vital Sign - Last 24 Hours 07/19/17 07/19/17 07/19/17 07/19/17 11:00 11:00 11:41 15:00 Temp 98.4 98.4 97.5 98.4 98.4 97.5 Pulse 109 109 118 Resp 18 18 19 18 B/P (MAP) 132/87 (102) 132/87 (102) 139/104 (116) Pulse Ox 98 98 98 99 O2 Delivery Room Air Room Air Room Air Room Air 07/19/17 07/19/17 07/19/17 07/19/17 16:49 17:19 19:15 20:00 Temp 98.4 98.4 Pulse 78 Resp 18 18 18 B/P (MAP) 135/101 (112) Pulse Ox 99 98 O2 Delivery Room Air Room Air Room Air 07/19/17 07/19/17 07/20/17 07/20/17 21:00 23:10 03:15 05:10 Temp 98.6 98.0 98.6 98.0 Pulse 68 120 Resp 20 18 18 19 B/P (MAP) 137/98 (111) 164/98 (120) Pulse Ox 98 99 98 99 O2 Delivery Room Air Room Air Room Air 07/20/17 07/20/17 07/20/17 05:40 07:00 09:02 Temp 98.3 98.3 Pulse 80 Resp 16 B/P (MAP) 99/48 (65) Pulse Ox 99 99 99 O2 Delivery Room Air Room Air Room Air CHEYENNE LOYOLA III DO Jul 20, 2017 11:02
--- NOTE | 2017-07-20 14:05 | PDOC ---
Subjective: Subjective: Mid abd pain. Nausea. Some vomiting but able to take some clears. BM yesterday. Objective: Objective: Now on atbx for UTI per primary. Vital Signs: Vital Signs Date Time Temp Pulse Resp B/P (MAP) Pulse Ox O2 Delivery O2 Flow Rate FiO2 07/20/17 13:14 98 Room Air 07/20/17 11:00 97.9 81 16 112/82 (92) 97.9 Imaging: CT A/P w/ IV contrast 07/19/17 Findings: Heart is normal in size. No pericardial or pleural effusion. Clear lung bases. Liver is normal in morphology without focal lesion. Spleen is within normal limits. Status post cholecystectomy. No intrahepatic or extrahepatic biliary duct dilation. Pancreas is within normal limits. Adrenal glands show no nodularity. No suspicious renal lesion. No retroperitoneal or pelvic adenopathy. Appendix is not visualized. No bowel obstruction. No abnormal bowel wall thickening or enhancement. No right lower quadrant inflammatory changes. Uterus is anteverted with IUD in place. Bilateral ovaries are visualized and are within normal limits. No free pelvic fluid. Bladder is within normal limits. No abdominal hernias. No suspicious bony lesion. Impression: 1. Appendix not visualized. However, no right lower quadrant inflammatory changes to suggest appendicitis. 2. No bowel obstruction. PE: GEN: NAD LUNGS: CTAB HEART: RRR ABD: BS+, periumbilical discomfort NEURO/PSYCH: A & O 3 A/P: Recurrent n/v and abd pain, h/o CVS -LFTs, amylase, lipase WNL; CT unrevealing -on IV H2 ashtyn -- Supportive care, await cortisol and DAJA. LIBBY CAO Jul 20, 2017 14:05
[2017-07-20 15:00] VITALS: BP 118/62
[2017-07-20] MEDS: ONDANSETRON PF 4 MG/2 ML VIAL. IV PRN ×2 (17:01→23:07)
[2017-07-20] MEDS ORDERED: HYDROmorphone 2 MG/ML VIAL IM ONE (17:30)
[2017-07-20] MEDS ORDERED: LORazepam 1 MG TABLET PO PRN (17:45)
[2017-07-20] MEDS ORDERED: oxyCODONE/APAP 5/325 1 TAB TABLET PO PRN (17:45)
[2017-07-20] MEDS ORDERED: diphenhydrAMINE 50 MG/ML VIAL IVP PRN (17:45)
[2017-07-20 19:20] VITALS: BP 106/65
[2017-07-20 23:15] VITALS: BP 108/59
[2017-07-21] MEDS: HYDROmorphone 2 MG/ML VIAL IV PRN ×6 (01:26→23:08)
[2017-07-21 03:15] VITALS: BP 109/63
[2017-07-21] MEDS: IV NORMAL SALINE 1000ML BAG 1,000 ML IV SCH ×2 (03:15→16:31)
[2017-07-21] MEDS: ONDANSETRON PF 4 MG/2 ML VIAL. IV PRN ×3 (05:40→18:03)
[2017-07-21 07:00] VITALS: BP 121/73
[2017-07-21] MEDS: FAMOTIDINE 20 MG/2 ML VIAL IVP SCH ×2 (07:37→20:35)
[2017-07-21] MEDS: oxyCODONE/APAP 10/325 1 TAB TABLET PO PRN ×2 (07:38→16:31)
[2017-07-21 10:58] VITALS: BP 115/71
--- NOTE | 2017-07-21 11:11 | PDOC ---
PROGRESS NOTES Chief Complaint Chief Complaint abdominal pain History of Present Illness History of Present Illness Patient sitting up in bed, leaning forward, and shaking when patient entered room. Patient complained of severe pain. Patient just returned from getting juice from fridge. Patient declined order for more pain medication because she was "10 minutes from getting her regular dose". Vitals Vitals Vital Signs Date Time Temp Pulse Resp B/P (MAP) Pulse Ox O2 Delivery O2 Flow Rate FiO2 07/21/17 10:58 97.8 86 16 115/71 (86) 98 Room Air 97.8 Physical Exam Physical Exam Patient shaking and complaining of pain. Able to respond to questions in complete sentences and appropriately with no shortness of breath or disorientation. General: Alert, Cooperative, moderate distress Heart: Regular rate Lungs: Clear, Other Abdomen: Normal bowel sounds, Soft, No masses, Other (tender to moderate palpation all 4 quadrants. ) Extremities: No clubbing, No cyanosis, Normal pulses Skin: No rashes, No breakdown, No significant lesion Review of Systems Review of Systems Patient admits to pain. Patient admits to lethargy. Assessment and Plan Assessmemt and Plan Problems Medical Problems: (1) Abdominal pain Status: Acute Assessment: Abdominal Pain Plan: 1. continue abx for UTI 2. continue fluid replacement 3. Continue pain medication 4. Continue monitoring 5. Await GI input 6. Allow activity as tolerated. Problems: Comment Review of Relevant I have reviewed the following items miguel (where applicable) has been applied. Labs Laboratory Tests Test 07/20/17 04:50 Cortisol AM Sample 15.9 ug/dL (6.2-19.4) Medications Current Medications Haloperidol Lactate (Haldol) 5 mg 1X ONCE IVP Last administered on 07/19/17 07:23; Start 07/19/17 at 07:15; Stop 07/19/17 at 07:16; Status DC Prochlorperazine Edisylate (Compazine) 10 mg 1X ONCE IV Last administered on 07/19/17 07:23; Start 07/19/17 at 07:15; Stop 07/19/17 at 07:16; Status DC Sodium Chloride 1,000 ml @ 1,000 mls/hr 1X ONCE IV Last administered on 07:23; Start 07/19/17 at 07:15; Stop 07/19/17 at 08:14; Status DC Ceftriaxone Sodium 50 ml @ 100 mls/hr 1X ONCE IV Last administered on 07:42; Start 07/19/17 at 07:30; Stop 07/19/17 at 07:59; Status DC Ketamine HCl 20 mg 1X ONCE IV Last administered on 07/19/17 07:54; Start 07/19/17 at 07:45; Stop 07/19/17 at 07:47; Status DC Ketorolac Tromethamine (Toradol) 30 mg 1X ONCE IV Last administered on 08:43; Start 07/19/17 at 08:30; Stop 07/19/17 at 08:31; Status DC Lorazepam (Ativan) 1 mg 1X ONCE IV Last administered on 07/19/17 08:43; Start 07/19/17 at 08:45; Stop 07/19/17 at 08:46; Status DC Acetaminophen (Tylenol) 650 mg PRN Q4HRS PRN PO FEVER, PAIN; Start 07/19/17 at 09:15; Stop 07/20/17 at 09:14; Status DC Sodium Chloride 1,000 ml @ 100 mls/hr 1X ONCE IV Last administered on 09:28; Start 07/19/17 at 09:15; Stop 07/19/17 at 19:14; Status DC Sodium Chloride 1,000 ml @ 75 mls/hr [id number] IV Last administered on 21:09; Start 07/19/17 at 11:15 Hydromorphone HCl (Dilaudid) 1 mg PRN Q4HRS PRN IV PAIN Last administered on 17:01; Start 07/19/17 at 11:30; Stop 07/20/17 at 17:28; Status DC Iohexol (Omnipaque 300 Mg/ml) 75 ml 1X ONCE IV Last administered on 07/19/17 13:37; Start 07/19/17 at 12:45; Stop 07/19/17 at 12:46; Status DC Info (Do NOT chart on this entry -- for MONITORING) 1 each PRN DAILY PRN MC SEE COMMENTS; Start 07/19/17 at 12:45; Stop 07/21/17 at 12:44 Famotidine (Pepcid) 20 mg BID IVP Last administered on 07/21/17 07:37; Start 07/19/17 at 13:00 Levofloxacin/ Dextrose 100 ml @ 100 mls/hr Q24H IV Last administered on 12:17; Start 07/20/17 at 12:00 Ondansetron HCl (Zofran) 4 mg PRN Q6HRS PRN IV NAUSEA/VOMITING Last administered on 07/21/17 05:40; Start 07/20/17 at 11:15 Hydromorphone HCl (Dilaudid) 1.5 mg PRN Q4HRS PRN IV PAIN Last administered on 07/21/17 10:48; Start 07/20/17 at 17:30 Hydromorphone HCl (Dilaudid) 0.5 mg 1X ONCE IM ; Start 07/20/17 at 17:30; Stop 07/20/17 at 18:46; Status DC Oxycodone/ Acetaminophen (Percocet 5/325) 1 tab PRN Q4HRS PRN PO PAIN; Start 07/20/17 at 17:45 Oxycodone/ Acetaminophen (Percocet 10/325) 1 tab PRN Q4HRS PRN PO pain Last administered on 07/21/17 07:38; Start 07/20/17 at 17:45 Diphenhydramine HCl (Benadryl) 25 mg PRN Q6HRS PRN IVP ITCHING; Start 07/20/17 at 17:45 Lorazepam (Ativan) 1 mg PRN Q6HRS PRN PO ANXIETY / AGITATION; Start 07/20/17 at 17:45 Lorazepam (Ativan) 1 mg PRN Q4HRS PRN IV ANXIETY / AGITATION Last administered on 07/21/17 07:38; Start 07/20/17 at 17:45 Active Scripts Active Zofran Odt (Ondansetron) 4 Mg Tab.rapdis 8 Mg PO BID PRN Phenergan (Promethazine HCl) 25 Mg Supp.rect 25 Mg RC PRN Q6-8HRS PRN Amitriptyline Hcl 50 Mg Tablet 1 Tab PO QHS Vitals/I & O Vital Sign - Last 24 Hours 07/20/17 07/20/17 07/20/17 07/20/17 13:14 15:00 17:01 17:31 Temp 98.0 98.0 Pulse 70 Resp 16 B/P (MAP) 118/62 (80) Pulse Ox 98 98 98 98 O2 Delivery Room Air Room Air Room Air Room Air 07/20/17 07/20/17 07/20/17 07/20/17 19:20 20:00 21:08 23:15 Temp 98.5 98.3 98.5 98.3 Pulse 75 81 Resp 18 19 18 B/P (MAP) 106/65 (79) 108/59 (75) Pulse Ox 95 95 94 O2 Delivery Room Air Room Air Room Air Room Air 07/21/17 07/21/17 07/21/17 07/21/17 01:26 03:15 05:40 06:10 Temp 97.7 97.7 Pulse 64 Resp 18 18 17 B/P (MAP) 109/63 (78) Pulse Ox 94 97 97 97 O2 Delivery Room Air Room Air Room Air Room Air 07/21/17 07/21/17 07/21/17 07/21/17 07:00 07:38 08:40 10:48 Temp 97.5 97.5 Pulse 101 Resp 16 B/P (MAP) 121/73 (89) Pulse Ox 97 97 97 97 O2 Delivery Room Air Room Air Room Air Room Air 07/21/17 10:58 Temp 97.8 97.8 Pulse 86 Resp 16 B/P (MAP) 115/71 (86) Pulse Ox 98 O2 Delivery Room Air CHEYENNE LOYOLA III DO Jul 21, 2017 11:11
--- NOTE | 2017-07-21 11:36 | PDOC ---
Subjective: Subjective: Waiting on pain meds. Abd pain persists. Less n/v, doesn't want to advance diet. Objective: Objective: Per RN - asks for Dilaudid on schedule. Vital Signs: Vital Signs Date Time Temp Pulse Resp B/P (MAP) Pulse Ox O2 Delivery O2 Flow Rate FiO2 07/21/17 10:58 97.8 86 16 115/71 (86) 98 Room Air 97.8 PE: GEN: NAD, looks a little better today - has glasses on, watching tv LUNGS: CTAB HEART: RRR ABD: seems less tender although still sore - mostly periumbilical NEURO/PSYCH: A & O 3 A/P: Recurrent n/v and abd pain, h/o CVS -basic labs + Cortisol WNL, CT unrevealing -DAJA pending -previously normal GES, had an EGD at some point and recalls no significant findings -on IV H2 ashtyn -- Continue same per GI. TONIA. LIBBY CAO Jul 21, 2017 11:36
[2017-07-21 14:46] VITALS: BP 111/65
[2017-07-21 19:59] VITALS: BP 100/67
[2017-07-21 23:27] VITALS: BP 100/68
[2017-07-22] MEDS: ONDANSETRON PF 4 MG/2 ML VIAL. IV PRN ×2 (02:17→19:48)
[2017-07-22 02:28] VITALS: BP 110/76
[2017-07-22] MEDS: HYDROmorphone 2 MG/ML VIAL IV PRN ×4 (03:13→19:27)
[2017-07-22 04:10] LABS: BASO % 1 % (0-3); EOS % 2 % (0-3); HEMATOCRIT 35.4 % (36.0-47.0); HEMOGLOBIN 12.1 g/dL (12.0-15.5); LYMPH # 2.1 x10^3/uL (1.0-4.8); LYMPH % 48 % (24-48); MEAN CORPUSCULAR HEMOGLOBIN 30 pg (25-35); MEAN CORPUSCULAR HGB CONC 34 g/dL (31-37); MEAN CORPUSCULAR VOLUME 89 fL (79-100); MONO % 11 % (0-9); NEUT % 38 % (31-73); PLATELET COUNT 146 x10^3/uL (140-400); RED BLOOD COUNT 3.99 x10^6/uL (3.50-5.40); RED CELL DISTRIBUTION WIDTH 13.4 % (11.5-14.5); WHITE BLOOD COUNT 4.4 x10^3/uL (4.0-11.0)
[2017-07-22 04:31] LABS: CALCIUM 8.6 mg/dL (8.5-10.1); CREATININE 0.7 mg/dL (0.6-1.0); GFR 102.8; POTASSIUM 3.2 mmol/L (3.5-5.1)
[2017-07-22] MEDS: IV NORMAL SALINE 1000ML BAG 1,000 ML IV SCH ×2 (06:24→21:59)
[2017-07-22 07:16] VITALS: BP 99/65
[2017-07-22] MEDS: FAMOTIDINE 20 MG/2 ML VIAL IVP SCH (07:46)
[2017-07-22] MEDS: oxyCODONE/APAP 10/325 1 TAB TABLET PO PRN ×3 (07:48→21:56)
[2017-07-22 10:46] VITALS: BP 102/71
--- NOTE | 2017-07-22 11:23 | PDOC ---
PROGRESS NOTES Chief Complaint Chief Complaint abdominal pain History of Present Illness History of Present Illness Patient sitting up in bed drinking juice. She indicated she still had periumbilical pain and a headache. Patient has not had food yet, only clear liquids. Vitals Vitals Vital Signs Date Time Temp Pulse Resp B/P (MAP) Pulse Ox O2 Delivery O2 Flow Rate FiO2 07/22/17 10:46 97.7 66 18 102/71 (81) 98 Room Air 97.7 Physical Exam Physical Exam Skin warm and well perfused. Able to respond to questions with appropriate answers. General: Alert, Oriented X3, Cooperative, mild distress Heart: Regular rate Lungs: Clear, Other Abdomen: Normal bowel sounds, Soft, No masses, Other (tender to moderate palpation all 4 quadrants. ) Extremities: No clubbing, No cyanosis, Normal pulses Skin: No rashes, No breakdown, No significant lesion Labs LABS Laboratory Tests Test 07/22/17 03:15 White Blood Count 4.4 x10^3/uL (4.0-11.0) Red Blood Count 3.99 x10^6/uL (3.50-5.40) Hemoglobin 12.1 g/dL (12.0-15.5) Hematocrit 35.4 % (36.0-47.0) Mean Corpuscular Volume 89 fL (79-100) Mean Corpuscular Hemoglobin 30 pg (25-35) Mean Corpuscular Hemoglobin Concent 34 g/dL (31-37) Red Cell Distribution Width 13.4 % (11.5-14.5) Platelet Count 146 x10^3/uL (140-400) Neutrophils (%) (Auto) 38 % (31-73) Lymphocytes (%) (Auto) 48 % (24-48) Monocytes (%) (Auto) 11 % (0-9) Eosinophils (%) (Auto) 2 % (0-3) Basophils (%) (Auto) 1 % (0-3) Neutrophils # (Auto) 1.6 x10^3uL (1.8-7.7) Lymphocytes # (Auto) 2.1 x10^3/uL (1.0-4.8) Monocytes # (Auto) 0.5 x10^3/uL (0.0-1.1) Eosinophils # (Auto) 0.1 x10^3/uL (0.0-0.7) Basophils # (Auto) 0.0 x10^3/uL (0.0-0.2) Sodium Level 140 mmol/L (136-145) Potassium Level 3.2 mmol/L (3.5-5.1) Chloride Level 104 mmol/L (98-107) Carbon Dioxide Level 27 mmol/L (21-32) Anion Gap 9 (6-14) Blood Urea Nitrogen 2 mg/dL (7-20) Creatinine 0.7 mg/dL (0.6-1.0) Estimated GFR (Cockcroft-Gault) 102.8 Glucose Level 91 mg/dL (70-99) Calcium Level 8.6 mg/dL (8.5-10.1) Review of Systems Review of Systems Patient admitted lethargy. Patient admitted hunger. Assessment and Plan Assessmemt and Plan Problems Medical Problems: (1) Abdominal pain Status: Acute Assessment: Abdominal Pain Plan: 1. Will recheck labs 2. Encourage diet progression as tolerated. 3. Continue home medications 4. Continue activity as tolerated 5. Continue fluids Problems: Comment Review of Relevant I have reviewed the following items miguel (where applicable) has been applied. Labs Laboratory Tests Test 07/22/17 03:15 White Blood Count 4.4 x10^3/uL (4.0-11.0) Red Blood Count 3.99 x10^6/uL (3.50-5.40) Hemoglobin 12.1 g/dL (12.0-15.5) Hematocrit 35.4 % (36.0-47.0) Mean Corpuscular Volume 89 fL (79-100) Mean Corpuscular Hemoglobin 30 pg (25-35) Mean Corpuscular Hemoglobin Concent 34 g/dL (31-37) Red Cell Distribution Width 13.4 % (11.5-14.5) Platelet Count 146 x10^3/uL (140-400) Neutrophils (%) (Auto) 38 % (31-73) Lymphocytes (%) (Auto) 48 % (24-48) Monocytes (%) (Auto) 11 % (0-9) Eosinophils (%) (Auto) 2 % (0-3) Basophils (%) (Auto) 1 % (0-3) Neutrophils # (Auto) 1.6 x10^3uL (1.8-7.7) Lymphocytes # (Auto) 2.1 x10^3/uL (1.0-4.8) Monocytes # (Auto) 0.5 x10^3/uL (0.0-1.1) Eosinophils # (Auto) 0.1 x10^3/uL (0.0-0.7) Basophils # (Auto) 0.0 x10^3/uL (0.0-0.2) Sodium Level 140 mmol/L (136-145) Potassium Level 3.2 mmol/L (3.5-5.1) Chloride Level 104 mmol/L (98-107) Carbon Dioxide Level 27 mmol/L (21-32) Anion Gap 9 (6-14) Blood Urea Nitrogen 2 mg/dL (7-20) Creatinine 0.7 mg/dL (0.6-1.0) Estimated GFR (Cockcroft-Gault) 102.8 Glucose Level 91 mg/dL (70-99) Calcium Level 8.6 mg/dL (8.5-10.1) Laboratory Tests Test 07/22/17 03:15 White Blood Count 4.4 x10^3/uL (4.0-11.0) Red Blood Count 3.99 x10^6/uL (3.50-5.40) Hemoglobin 12.1 g/dL (12.0-15.5) Hematocrit 35.4 % (36.0-47.0) Mean Corpuscular Volume 89 fL (79-100) Mean Corpuscular Hemoglobin 30 pg (25-35) Mean Corpuscular Hemoglobin Concent 34 g/dL (31-37) Red Cell Distribution Width 13.4 % (11.5-14.5) Platelet Count 146 x10^3/uL (140-400) Neutrophils (%) (Auto) 38 % (31-73) Lymphocytes (%) (Auto) 48 % (24-48) Monocytes (%) (Auto) 11 % (0-9) Eosinophils (%) (Auto) 2 % (0-3) Basophils (%) (Auto) 1 % (0-3) Neutrophils # (Auto) 1.6 x10^3uL (1.8-7.7) Lymphocytes # (Auto) 2.1 x10^3/uL (1.0-4.8) Monocytes # (Auto) 0.5 x10^3/uL (0.0-1.1) Eosinophils # (Auto) 0.1 x10^3/uL (0.0-0.7) Basophils # (Auto) 0.0 x10^3/uL (0.0-0.2) Sodium Level 140 mmol/L (136-145) Potassium Level 3.2 mmol/L (3.5-5.1) Chloride Level 104 mmol/L (98-107) Carbon Dioxide Level 27 mmol/L (21-32) Anion Gap 9 (6-14) Blood Urea Nitrogen 2 mg/dL (7-20) Creatinine 0.7 mg/dL (0.6-1.0) Estimated GFR (Cockcroft-Gault) 102.8 Glucose Level 91 mg/dL (70-99) Calcium Level 8.6 mg/dL (8.5-10.1) Medications Current Medications Haloperidol Lactate (Haldol) 5 mg 1X ONCE IVP Last administered on 07/19/17 07:23; Start 07/19/17 at 07:15; Stop 07/19/17 at 07:16; Status DC Prochlorperazine Edisylate (Compazine) 10 mg 1X ONCE IV Last administered on 07/19/17 07:23; Start 07/19/17 at 07:15; Stop 07/19/17 at 07:16; Status DC Sodium Chloride 1,000 ml @ 1,000 mls/hr 1X ONCE IV Last administered on 07:23; Start 07/19/17 at 07:15; Stop 07/19/17 at 08:14; Status DC Ceftriaxone Sodium 50 ml @ 100 mls/hr 1X ONCE IV Last administered on 07:42; Start 07/19/17 at 07:30; Stop 07/19/17 at 07:59; Status DC Ketamine HCl 20 mg 1X ONCE IV Last administered on 07/19/17 07:54; Start 07/19/17 at 07:45; Stop 07/19/17 at 07:47; Status DC Ketorolac Tromethamine (Toradol) 30 mg 1X ONCE IV Last administered on 08:43; Start 07/19/17 at 08:30; Stop 07/19/17 at 08:31; Status DC Lorazepam (Ativan) 1 mg 1X ONCE IV Last administered on 07/19/17 08:43; Start 07/19/17 at 08:45; Stop 07/19/17 at 08:46; Status DC Acetaminophen (Tylenol) 650 mg PRN Q4HRS PRN PO FEVER, PAIN; Start 07/19/17 at 09:15; Stop 07/20/17 at 09:14; Status DC Sodium Chloride 1,000 ml @ 100 mls/hr 1X ONCE IV Last administered on 09:28; Start 07/19/17 at 09:15; Stop 07/19/17 at 19:14; Status DC Sodium Chloride 1,000 ml @ 75 mls/hr [id number] IV Last administered on 06:24; Start 07/19/17 at 11:15 Hydromorphone HCl (Dilaudid) 1 mg PRN Q4HRS PRN IV PAIN Last administered on 17:01; Start 07/19/17 at 11:30; Stop 07/20/17 at 17:28; Status DC Iohexol (Omnipaque 300 Mg/ml) 75 ml 1X ONCE IV Last administered on 07/19/17 13:37; Start 07/19/17 at 12:45; Stop 07/19/17 at 12:46; Status DC Info (Do NOT chart on this entry -- for MONITORING) 1 each PRN DAILY PRN MC SEE COMMENTS; Start 07/19/17 at 12:45; Stop 07/21/17 at 12:44; Status DC Famotidine (Pepcid) 20 mg BID IVP Last administered on 07/22/17 07:46; Start 07/19/17 at 13:00 Levofloxacin/ Dextrose 100 ml @ 100 mls/hr Q24H IV Last administered on 11:56; Start 07/20/17 at 12:00 Ondansetron HCl (Zofran) 4 mg PRN Q6HRS PRN IV NAUSEA/VOMITING Last administered on 07/22/17 02:17; Start 07/20/17 at 11:15 Hydromorphone HCl (Dilaudid) 1.5 mg PRN Q4HRS PRN IV PAIN Last administered on 07/22/17 09:29; Start 07/20/17 at 17:30 Hydromorphone HCl (Dilaudid) 0.5 mg 1X ONCE IM ; Start 07/20/17 at 17:30; Stop 07/20/17 at 18:46; Status DC Oxycodone/ Acetaminophen (Percocet 5/325) 1 tab PRN Q4HRS PRN PO PAIN; Start 07/20/17 at 17:45 Oxycodone/ Acetaminophen (Percocet 10/325) 1 tab PRN Q4HRS PRN PO pain Last administered on 07/22/17 07:48; Start 07/20/17 at 17:45 Diphenhydramine HCl (Benadryl) 25 mg PRN Q6HRS PRN IVP ITCHING; Start 07/20/17 at 17:45 Lorazepam (Ativan) 1 mg PRN Q6HRS PRN PO ANXIETY / AGITATION; Start 07/20/17 at 17:45 Lorazepam (Ativan) 1 mg PRN Q4HRS PRN IV ANXIETY / AGITATION Last administered on 07/22/17 07:53; Start 07/20/17 at 17:45 Active Scripts Active Zofran Odt (Ondansetron) 4 Mg Tab.rapdis 8 Mg PO BID PRN Phenergan (Promethazine HCl) 25 Mg Supp.rect 25 Mg RC PRN Q6-8HRS PRN Amitriptyline Hcl 50 Mg Tablet 1 Tab PO QHS Vitals/I & O Vital Sign - Last 24 Hours 07/21/17 07/21/17 07/21/17 07/21/17 14:34 14:46 16:31 19:08 Temp 98.3 98.3 Pulse 70 Resp 16 B/P (MAP) 111/65 (80) Pulse Ox 98 98 98 98 O2 Delivery Room Air Room Air Room Air Room Air 07/21/17 07/21/17 07/21/17 07/21/17 19:59 20:00 23:08 23:27 Temp 97.5 98.3 97.5 98.3 Pulse 59 80 Resp 18 18 B/P (MAP) 100/67 (78) 100/68 (79) Pulse Ox 100 97 O2 Delivery Room Air Room Air Room Air Room Air 07/22/17 07/22/17 07/22/17 07/22/17 02:28 03:13 07:16 07:48 Temp 97.6 97.7 97.6 97.7 Pulse 67 54 Resp 18 18 B/P (MAP) 110/76 (87) 99/65 (76) Pulse Ox 75 75 97 75 O2 Delivery Room Air Room Air Room Air Room Air 07/22/17 07/22/17 07/22/17 07/22/17 08:00 08:48 10:00 10:46 Temp 97.7 97.7 Pulse 66 Resp 18 B/P (MAP) 102/71 (81) Pulse Ox 75 75 98 O2 Delivery Room Air Room Air Room Air Room Air CHEYENNE LOYOLA III DO Jul 22, 2017 11:23
[2017-07-22] MEDS ORDERED: POTASSIUM CHLORIDE 20MEQ 50 ML IV ONE (11:45)
--- NOTE | 2017-07-22 12:10 | PDOC ---
Subjective: Subjective: Had ice cream last night, going to try mashed potatoes later. Still abd pain. Had had IUD x 7 years, wants it out to have more kids. Objective: Objective: Per RN - consult called to SONOSCOPE OPERATOR, no plans for inpt eval, outpt f/u suggested. Vital Signs: Vital Signs Date Time Temp Pulse Resp B/P (MAP) Pulse Ox O2 Delivery O2 Flow Rate FiO2 07/22/17 10:46 97.7 66 18 102/71 (81) 98 Room Air 97.7 Labs: Laboratory Tests Test 07/22/17 03:15 White Blood Count 4.4 x10^3/uL Red Blood Count 3.99 x10^6/uL Hemoglobin 12.1 g/dL Hematocrit 35.4 % Mean Corpuscular Volume 89 fL Mean Corpuscular Hemoglobin 30 pg Mean Corpuscular Hemoglobin Concent 34 g/dL Red Cell Distribution Width 13.4 % Platelet Count 146 x10^3/uL Neutrophils (%) (Auto) 38 % Lymphocytes (%) (Auto) 48 % Monocytes (%) (Auto) 11 % Eosinophils (%) (Auto) 2 % Basophils (%) (Auto) 1 % Neutrophils # (Auto) 1.6 x10^3uL Lymphocytes # (Auto) 2.1 x10^3/uL Monocytes # (Auto) 0.5 x10^3/uL Eosinophils # (Auto) 0.1 x10^3/uL Basophils # (Auto) 0.0 x10^3/uL Sodium Level 140 mmol/L Potassium Level 3.2 mmol/L Chloride Level 104 mmol/L Carbon Dioxide Level 27 mmol/L Anion Gap 9 Blood Urea Nitrogen 2 mg/dL Creatinine 0.7 mg/dL Estimated GFR (Cockcroft-Gault) 102.8 Glucose Level 91 mg/dL Calcium Level 8.6 mg/dL PE: GEN: NAD LUNGS: CTAB HEART: RRR ABD: periumbilical pain NEURO/PSYCH: A & O 3 A/P: Recurrent n/v and abd pain, h/o CVS -basic labs + Cortisol + DAJA WNL/negative, CT unrevealing -previously normal GES, had an EGD at some point and recalls no significant findings -IUD in place (7 years) ---> SONOSCOPE OPERATOR suggests outpt eval -- ADAT. Stop IV H2 ashtyn since tolerating PO. LIBBY CAO Jul 22, 2017 12:10
[2017-07-22] MEDS: POTASSIUM CHLORIDE 10MEQ 100 ML IV SCH ×2 (12:31→14:26)
[2017-07-22] MEDS: PANTOPRAZOLE 40 MG TABLET.DR. PO SCH (13:24)
[2017-07-22 15:33] VITALS: BP 116/88
[2017-07-22 19:00] VITALS: BP 103/59
[2017-07-22 23:35] VITALS: BP 99/54
[2017-07-23] MEDS: HYDROmorphone 2 MG/ML VIAL IV PRN ×2 (01:22→05:34)
[2017-07-23] MEDS: ONDANSETRON PF 4 MG/2 ML VIAL. IV PRN (02:11)
[2017-07-23] MEDS: oxyCODONE/APAP 10/325 1 TAB TABLET PO PRN ×3 (02:12→11:59)
[2017-07-23 07:39] VITALS: BP 91/41
[2017-07-23 08:10] LABS: BASO % 1 % (0-3); EOS % 3 % (0-3); HEMATOCRIT 38.4 % (36.0-47.0); HEMOGLOBIN 13.1 g/dL (12.0-15.5); LYMPH # 2.1 x10^3/uL (1.0-4.8); LYMPH % 45 % (24-48); MEAN CORPUSCULAR HEMOGLOBIN 30 pg (25-35); MEAN CORPUSCULAR HGB CONC 34 g/dL (31-37); MEAN CORPUSCULAR VOLUME 89 fL (79-100); MONO % 10 % (0-9); NEUT % 42 % (31-73); PLATELET COUNT 152 x10^3/uL (140-400); RED BLOOD COUNT 4.32 x10^6/uL (3.50-5.40); RED CELL DISTRIBUTION WIDTH 13.3 % (11.5-14.5); WHITE BLOOD COUNT 4.5 x10^3/uL (4.0-11.0)
[2017-07-23 08:29] LABS: CALCIUM 8.7 mg/dL (8.5-10.1); CREATININE 0.8 mg/dL (0.6-1.0); GFR 88.1; POTASSIUM 3.4 mmol/L (3.5-5.1)
[2017-07-23] MEDS: PANTOPRAZOLE 40 MG TABLET.DR. PO SCH (08:47)
[2017-07-23] MEDS: IV NORMAL SALINE 1000ML BAG 1,000 ML IV SCH (08:48)
--- NOTE | 2017-07-23 10:38 | PDOC ---
Subjective: Subjective: "A little" abd pain but overall better, says "goal" is to leave today. Objective: Vital Signs: Vital Signs Date Time Temp Pulse Resp B/P (MAP) Pulse Ox O2 Delivery O2 Flow Rate FiO2 07/23/17 09:48 16 95 Room Air 07/23/17 07:39 97.7 58 91/41 (58) 97.7 Labs: Laboratory Tests Test 07/23/17 07:10 White Blood Count 4.5 x10^3/uL Red Blood Count 4.32 x10^6/uL Hemoglobin 13.1 g/dL Hematocrit 38.4 % Mean Corpuscular Volume 89 fL Mean Corpuscular Hemoglobin 30 pg Mean Corpuscular Hemoglobin Concent 34 g/dL Red Cell Distribution Width 13.3 % Platelet Count 152 x10^3/uL Neutrophils (%) (Auto) 42 % Lymphocytes (%) (Auto) 45 % Monocytes (%) (Auto) 10 % Eosinophils (%) (Auto) 3 % Basophils (%) (Auto) 1 % Neutrophils # (Auto) 1.9 x10^3uL Lymphocytes # (Auto) 2.1 x10^3/uL Monocytes # (Auto) 0.4 x10^3/uL Eosinophils # (Auto) 0.1 x10^3/uL Basophils # (Auto) 0.0 x10^3/uL Sodium Level 141 mmol/L Potassium Level 3.4 mmol/L Chloride Level 106 mmol/L Carbon Dioxide Level 30 mmol/L Anion Gap 5 Blood Urea Nitrogen 2 mg/dL Creatinine 0.8 mg/dL Estimated GFR (Cockcroft-Gault) 88.1 Glucose Level 95 mg/dL Calcium Level 8.7 mg/dL PE: GEN: NAD LUNGS: CTAB HEART: RRR ABD: less tender NEURO/PSYCH: A & O 3 A/P: Recurrent n/v and abd pain, h/o CVS -basic labs + Cortisol + DAJA WNL/negative, CT unrevealing -previously normal GES, had an EGD at some point and recalls no significant findings -IUD in place (7 years) ---> [employer] suggests outpt eval -marijuana use Hypokalemia - improved -- Improved, DC per primary. LIBBY CAO Jul 23, 2017 10:38
[2017-07-23 11:06] VITALS: BP 122/80
[2017-07-23 15:18] VITALS: BP 122/84
--- NOTE | 2017-07-26 16:02 | DS ---
DATE OF DISCHARGE: 07/23/2017 CHIEF COMPLAINT: Abdominal pain, nausea, vomiting. HOSPITAL COURSE: The patient is a 22-year-old woman with frequent admission for same complaints attributed to cyclic vomiting syndrome secondary to cannabis use. She presented with the same course was as usual. The patient demanded IV narcotics for abdominal pain, Reglan was given for antiemetics and the patient slowly recovered with IV hydration. She left hospital K[facility] which she deemed herself ready to go home. PHYSICAL EXAMINATION: VITAL SIGNS: Show blood pressure of 102/71, heart rate of 66, respiratory rate at 18. GENERAL: This is a well-nourished 22-year-old woman, alert and oriented, no acute distress. LUNGS: Clear. HEART: Regular rate and rhythm. ABDOMEN: Has positive bowel sounds, soft, nontender. EXTREMITIES: Show no edema. DISCHARGE DIAGNOSIS: Cyclic vomiting syndrome. DISCHARGE DISPOSITION: To home. DISCHARGE CONDITION: Improved. DISCHARGE MEDICATIONS: Please refer to MAR. DISCHARGE INSTRUCTIONS: The patient was urged to stop using cannabis. ERICA DUCKWORTH MD DR: DIYA/nts JOB#: [id number] / [id number] [place]
[2017-07-29] MEDS ORDERED: OXYC5CAP PO (12:36)
[2017-08-20] MEDS ORDERED: ONDA4TAB10 PO (08:56)
[2017-08-20] MEDS ORDERED: PROC10TA57 PO (08:56)
[2017-08-20] MEDS ORDERED: OXYC5CAP PO (08:56)
[2017-09-18] MEDS ORDERED: AMIT50TA PO (10:21)
[2017-09-18] MEDS ORDERED: PROC10TA57 PO (10:21)
[2017-09-18] MEDS ORDERED: OXYC5CAP PO (10:21)
[2017-09-18] MEDS ORDERED: ONDA4TAB10 SL (10:21)
== END 2017-07-23 16:55 | disposition home or self-care (01) | DRG 690 ==
LOC: ER 06:46 → 6 SOUTH 09:10
PROVIDERS: ADMIT Internal Medicine; ATTEND Internal Medicine
DX: N39.0 Urinary tract infection, site not specified (principal); F32.9 Major depressive disorder, single episode, unspecified; G43.A0 Cyclical vomiting, in migraine, not intractable; K31.89 Other diseases of stomach and duodenum; E87.6 Hypokalemia; F12.90 Cannabis use, unspecified, uncomplicated; F41.0 Panic disorder [episodic paroxysmal anxiety]; J45.909 Unspecified asthma, uncomplicated; Z83.3 Family history of diabetes mellitus; Z90.49 Acquired absence of other specified parts of digestive tract
CPT/HCPCS: 36415; 74021; 74177; 80047; 80048; 80076; 81001; 81025; 82150; 82533; 83690; 85025; 96361; 96365; 96375; J0690; J0780; J1170; J1630; J1885; J1956; J2060; J2405; J3480; J3490; J7030; Q9967; S0028; 74020; 99285-25

== ENCOUNTER 2017-08-01 04:56 | Emergency (ER) | payer SELFPAY ==
[~2017-08-01] VITALS: Ht 162.6 cm; Wt 61.2 kg
[~2017-08-01 04:56] MED LIST changes: +OXYC5CAP PO
[2017-08-01 05:28] LABS: BARBITURATES NEG (NEG); BENZODIAZEPINES NEG (NEG); CANNABINOIDS POS (NEG); COCAINE NEG (NEG); METHADONE NEG (NEG); OPIATES POS (NEG); PHENCYCLIDINE NEG (NEG)
[2017-08-01] MEDS ORDERED: HALOPERIDOL LACTATE 5 MG/ML VIAL. IVP ONE (05:30)
[2017-08-01] MEDS ORDERED: IV NORMAL SALINE 1000ML BAG 1,000 ML IV SCH (05:30)
[2017-08-01] MEDS ORDERED: ONDANSETRON PF 4 MG/2 ML VIAL. IV ONE (05:30)
[2017-08-01 05:33] LABS: BILIRUBIN,URINE NEGATIVE (NEG); GLUCOSE,URINE NEGATIVE (NEG); NITRITE,URINE NEGATIVE (NEG); PH,URINE 6.5; PROTEIN,URINE NEGATIVE (NEG-TRACE); UROBILINOGEN,URINE 0.2 mg/dL (0.2 mg/dL)
[2017-08-01 05:41] LABS: BACTERIA,URINE MOD /HPF (0-FEW); SQUAMOUS EPITHELIAL CELL,UR MANY /LPF
[2017-08-01 05:50] LABS: BASO # 0.1 x10^3/uL (0.0-0.2); BASO % 1 % (0-3); EOS % 1 % (0-3); HEMATOCRIT 41.1 % (36.0-47.0); HEMOGLOBIN 14.2 g/dL (12.0-15.5); LYMPH # 2.1 x10^3/uL (1.0-4.8); LYMPH % 26 % (24-48); MEAN CORPUSCULAR HEMOGLOBIN 30 pg (25-35); MEAN CORPUSCULAR HGB CONC 35 g/dL (31-37); MEAN CORPUSCULAR VOLUME 88 fL (79-100); MONO % 7 % (0-9); NEUT % 65 % (31-73); PLATELET COUNT 187 x10^3/uL (140-400); RED BLOOD COUNT 4.67 x10^6/uL (3.50-5.40); RED CELL DISTRIBUTION WIDTH 13.5 % (11.5-14.5); WHITE BLOOD COUNT 7.9 x10^3/uL (4.0-11.0)
[2017-08-01] MEDS ORDERED: CAPSAICIN 0.025% TOPICAL CREAM 60GM TUBE. TP ONE (06:00)
[2017-08-01 06:01] LABS: CALCIUM 9.5 mg/dL (8.5-10.1); CREATININE 0.7 mg/dL (0.6-1.0); GFR 102.8; POTASSIUM 3.5 mmol/L (3.5-5.1)
[2017-08-01 06:06] LABS: ALBUMIN 4.3 g/dL (3.4-5.0); ALBUMIN/GLOBULIN RATIO 1.2 (1.0-1.7); TOTAL BILIRUBIN 0.8 mg/dL (0.2-1.0); TOTAL PROTEIN 7.9 g/dL (6.4-8.2)
--- NOTE | 2017-08-01 07:04 | ED.ADGEN ---
Past Medical History Past Medical History: Anxiety, Other Additional Past Medical Histor: cyclic vomiting syndrome, PANIC ATTACKS Past Surgical History: Cholecystectomy Alcohol Use: None Drug Use: Marijuana Adult General Chief Complaint Chief Complaint: ABDOMINAL PAIN HPI HPI Patient is a 22 year old woman, history of cyclic vomiting syndrome with marijuana abuse, who presents to the emergency department with a complaint of recurrent cyclic vomiting. Patient was admitted hospital several days ago for similar symptoms and discharged. She states she did smoke over the past several days, denies any new or different symptoms, any fevers or chills, any injuries, any sick contacts or exposures. Patient states that she is experiencing nausea, vomiting, abdominal cramping. Patient states that she has an appointment on Wednesday to follow-up with a primary care provider at [facility]. She denies any other ingestions or exposures. Patient noted to be dry heaving, and producing mucus in the ED, no emesis visualized at this time. Review of Systems Review of Systems Constitutional: Denies fever or chills. [] Eyes: Denies change in visual acuity. [] HENT: Denies nasal congestion or sore throat. [] Respiratory: Denies cough or shortness of breath. [] Cardiovascular: Denies chest pain or edema. [] GI: Complaining of abdominal pain, nausea, vomiting, no bloody stools or diarrhea. : Denies dysuria. [] Musculoskeletal: Denies back pain or joint pain. [] Integument: Denies rash. [] Neurologic: Denies headache, focal weakness or sensory changes. [] Endocrine: Denies polyuria or polydipsia. [] Lymphatic: Denies swollen glands. [] Psychiatric: Denies depression or anxiety. [] Current Medications Current Medications Current Medications Medications (Trade) Dose Ordered Sig/Arnaldo Start Time Stop Time Status Last Admin Dose Admin Capsaicin (Zostrix) 1 sami 1X ONCE 08/01/17 06:00 08/01/17 06:01 DC 08/01/17 05:53 1 SAMI Haloperidol Lactate (Haldol) 5 mg 1X ONCE 08/01/17 05:30 08/01/17 05:31 DC 08/01/17 05:53 5 MG Ondansetron HCl (Zofran) 4 mg 1X ONCE 08/01/17 05:30 08/01/17 05:31 DC 08/01/17 05:53 4 MG Sodium Chloride 1,000 ml @ 1,000 mls/hr Q1H 08/01/17 05:30 08/01/17 06:29 DC 08/01/17 05:53 1,000 MLS/HR Allergies Allergies Allergies Coded Allergies Type Severity Reaction Last Updated Verified coconut Allergy Severe Anaphylaxis 01/22/17 Yes Physical Exam Physical Exam Constitutional: Well developed, well nourished, no acute distress, non-toxic appearance. [] HENT: Normocephalic, atraumatic, bilateral external ears normal, oropharynx moist, no oral exudates, nose normal. [] Eyes: PERRLA, EOMI, conjunctiva normal, no discharge. [] Neck: Normal range of motion, no tenderness, supple, no stridor. [] Cardiovascular:Heart rate regular rhythm, no murmur , S1, S2, no rubs or gallops.[] Lungs & Thorax: Bilateral breath sounds clear to auscultation, no wheezing, rhonchi, rales. No chest or crepitus or tenderness. [] Abdomen: Bowel sounds normal, soft, mild tenderness all patient in the epigastric region, no rebound, rigidity, no guarding no masses, no pulsatile masses. [] Skin: Warm, dry, no erythema, no rash. [] Back: No tenderness, no CVA tenderness. [] Extremities: No tenderness, no cyanosis, no clubbing, ROM intact, no edema. Negative Homans sign.[] Neurologic: Alert and oriented X 3, normal motor function, normal sensory function, no focal deficits noted. [] Psychologic: Affect normal, judgement normal, mood normal. [] Current Patient Data Vital Signs Vital Signs Date Time Temp Pulse Resp B/P (MAP) Pulse Ox O2 Delivery O2 Flow Rate FiO2 08/01/17 06:25 92 16 145/102 (116) 97 Room Air 08/01/17 05:25 97.4 97.4 Lab Values Laboratory Tests Test 08/01/17 05:10 08/01/17 05:14 08/01/17 05:35 Urine Collection Type Unknown Urine Color Yellow Urine Clarity Clear Urine pH 6.5 Urine Specific [place] 1.020 Urine Protein Negative mg/dL (NEG-TRACE) Urine Glucose (UA) Negative mg/dL (NEG) Urine Ketones (Stick) Negative mg/dL (NEG) Urine Blood Trace (NEG) Urine Nitrite Negative (NEG) Urine Bilirubin Negative (NEG) Urine Urobilinogen Dipstick 0.2 mg/dL (0.2 mg/dL) Urine Leukocyte Esterase Small (NEG) Urine RBC 1-2 /HPF (0-2) Urine WBC 1-4 /HPF (0-4) Urine Squamous Epithelial Cells Many /LPF Urine Bacteria Mod /HPF (0-FEW) Urine Mucus Marked /LPF Urine Opiates Screen Pos (NEG) Urine Methadone Screen Neg (NEG) Urine Barbiturates Neg (NEG) Urine Phencyclidine Screen Neg (NEG) Urine Amphetamine/Methamphetamine Neg (NEG) Urine Benzodiazepines Screen Neg (NEG) Urine Cocaine Screen Neg (NEG) Urine Cannabinoids Screen Pos (NEG) Urine Ethyl Alcohol Neg (NEG) POC Urine HCG, Qualitative Hcg negative (Negative) White Blood Count 7.9 x10^3/uL (4.0-11.0) Red Blood Count 4.67 x10^6/uL (3.50-5.40) Hemoglobin 14.2 g/dL (12.0-15.5) Hematocrit 41.1 % (36.0-47.0) Mean Corpuscular Volume 88 fL (79-100) Mean Corpuscular Hemoglobin 30 pg (25-35) Mean Corpuscular Hemoglobin Concent 35 g/dL (31-37) Red Cell Distribution Width 13.5 % (11.5-14.5) Platelet Count 187 x10^3/uL (140-400) Neutrophils (%) (Auto) 65 % (31-73) Lymphocytes (%) (Auto) 26 % (24-48) Monocytes (%) (Auto) 7 % (0-9) Eosinophils (%) (Auto) 1 % (0-3) Basophils (%) (Auto) 1 % (0-3) Neutrophils # (Auto) 5.1 x10^3uL (1.8-7.7) Lymphocytes # (Auto) 2.1 x10^3/uL (1.0-4.8) Monocytes # (Auto) 0.6 x10^3/uL (0.0-1.1) Eosinophils # (Auto) 0.1 x10^3/uL (0.0-0.7) Basophils # (Auto) 0.1 x10^3/uL (0.0-0.2) Sodium Level 138 mmol/L (136-145) Potassium Level 3.5 mmol/L (3.5-5.1) Chloride Level 102 mmol/L (98-107) Carbon Dioxide Level 21 mmol/L (21-32) Anion Gap 15 (6-14) H Blood Urea Nitrogen 8 mg/dL (7-20) Creatinine 0.7 mg/dL (0.6-1.0) Estimated GFR (Cockcroft-Gault) 102.8 BUN/Creatinine Ratio 11 (6-20) Glucose Level 131 mg/dL (70-99) H Calcium Level 9.5 mg/dL (8.5-10.1) Total Bilirubin 0.8 mg/dL (0.2-1.0) Aspartate Amino Transferase (AST) 22 U/L (15-37) Alanine Aminotransferase (ALT) 37 U/L (14-59) Alkaline Phosphatase 59 U/L (46-116) Total Protein 7.9 g/dL (6.4-8.2) Albumin 4.3 g/dL (3.4-5.0) Albumin/Globulin Ratio 1.2 (1.0-1.7) Lipase 292 U/L (73-393) Laboratory Tests 08/01/17 05:35 Laboratory Tests 08/01/17 05:35 EKG EKG EC: Sinus rhythm, heart rate 67 beats are minute, upright axis, QTC of 383, QRS of 92, patient with moderate baseline artifact noted. As interpreted by me.[] Radiology/Procedures Radiology/Procedures Not indicated.[] Impressions: Nausea vomiting Course & Med Decision Making Course & Med Decision Making Pertinent Labs and Imaging studies reviewed. (See chart for details) Patient dry heaving, and producing mucus. No emesis noted in the ED on initial evaluation, as stated patient states that "I know this is because of the marijuana", and states that she was smoking marijuana over the past several days. Patient's heart rate is in the 60s to 80s, IV placed, laboratory studies obtained after discussion with patient bedside, patient received IV fluids, Haldol, and capsaicin cream topically the abdomen, for treatment of cyclic vomiting syndrome secondary to marijuana abuse. As stated, patient not exhibiting any vomiting the ED, heart rate remains in the 60s, IV fluids infusing, laboratory studies are pending at time of shift change. Patient's drugs of abuse screen is positive for opiates and marijuana, patient states that she does have oxycodone at home which she uses as directed, as needed, states she did fill the prescription yesterday. Findings as above were discussed with Dr. Doyt, who will follow-up on laboratory studies and disposition for the patient. Labs, EKG, vitals are all within normal limits. Patient is agreeable being discharged home at this time. Return precautions given. Gallo Encinas Disclaimer Ce Disclaimer This electronic medical record was generated, in whole or in part, using a voice recognition dictation system. Departure Impression: Primary Impression: Cyclic vomiting syndrome Additional Impression: Marijuana abuse Disposition: HOME, SELF-CARE Condition: IMPROVED Patient Instructions: Cyclic Vomiting Syndrome Additional Instructions: You were seen today for your nausea vomiting and marijuana abuse. It's a well- known fact that marijuana causes vomiting. You need to stop using marijuana as this is likely causing your symptoms. Your labs, EKG and vitals are all within normal limits. You received antinausea meds and pain meds in the emergency department. Your being discharged home. Please follow up tomorrow with your new physician. Return the ER for severe pain, uncontrolled vomiting, or other concerns. Problem Qualifiers TUNDE TARANGO DO Aug 01, 2017 07:04 NATALIE DOTY MD Aug 01, 2017 07:20
[2017-08-01 07:20] VITALS: BP 138/83
--- NOTE | 2017-08-01 07:51 | EKG ---
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
== END 2017-08-01 07:35 | disposition home or self-care (01) ==
LOC: ER 04:56
DX: G43.A0 Cyclical vomiting, in migraine, not intractable (principal); F12.10 Cannabis abuse, uncomplicated; R10.13 Epigastric pain; F41.0 Panic disorder [episodic paroxysmal anxiety]; Z91.018 Allergy to other foods
CPT/HCPCS: 36415; 80053; 80307; 81001; 81025; 83690; 85025; 93005; 96361; 96374; 96375; 99285; J1630; J2405; J7030; G0479

== ENCOUNTER 2017-08-09 12:24 | Emergency (ER) | payer SELFPAY ==
[~2017-08-09] VITALS: Ht 162.6 cm; Wt 61.2 kg
[2017-08-09] MEDS ORDERED: IV NORMAL SALINE 1000ML BAG 1,000 ML IV ONE ×3 (12:45→16:30)
[2017-08-09] MEDS ORDERED: ONDANSETRON PF 4 MG/2 ML VIAL. IV ONE ×2 (12:45→13:00)
[2017-08-09] MEDS ORDERED: FAMOTIDINE 20 MG/2 ML VIAL IVP ONE (12:45)
[2017-08-09 12:54] LABS: BASO % 0 % (0-3); EOS % 0 % (0-3); HEMATOCRIT 44.2 % (36.0-47.0); HEMOGLOBIN 15.2 g/dL (12.0-15.5); LYMPH # 1.4 x10^3/uL (1.0-4.8); LYMPH % 12 % (24-48); MEAN CORPUSCULAR HEMOGLOBIN 31 pg (25-35); MEAN CORPUSCULAR HGB CONC 35 g/dL (31-37); MEAN CORPUSCULAR VOLUME 88 fL (79-100); MONO % 3 % (0-9); NEUT % 85 % (31-73); PLATELET COUNT 257 x10^3/uL (140-400); RED CELL DISTRIBUTION WIDTH 13.5 % (11.5-14.5); WHITE BLOOD COUNT 11.8 x10^3/uL (4.0-11.0)
[2017-08-09] MEDS ORDERED: HALOPERIDOL LACTATE 5 MG/ML VIAL. IVP ONE (13:00)
[2017-08-09 13:06] LABS: CALCIUM 9.7 mg/dL (8.5-10.1); GFR 68.1; POTASSIUM 3.2 mmol/L (3.5-5.1)
[2017-08-09 13:09] LABS: NEG OBC SER NEG; POS OBC SER POS
[2017-08-09 13:12] LABS: ALBUMIN 4.7 g/dL (3.4-5.0); ALBUMIN/GLOBULIN RATIO 1.1 (1.0-1.7); TOTAL BILIRUBIN 0.8 mg/dL (0.2-1.0); TOTAL PROTEIN 8.8 g/dL (6.4-8.2)
[2017-08-09] MEDS ORDERED: DICYCLOMINE 20 MG/2 ML AMPUL. IM ONE (14:15)
--- NOTE | 2017-08-09 14:29 | PHYS DOC ---
Past Medical History Past Medical History: Anxiety, Other Additional Past Medical Histor: cyclic vomiting syndrome, PANIC ATTACKS Past Surgical History: Cholecystectomy Alcohol Use: None Drug Use: Marijuana Adult General Chief Complaint Chief Complaint: NAUSEA/VOMITING/DIARRHA HPI HPI Patient is a 22 year old female with history of anxiety, panic attacks, cyclic vomiting syndrome who presents with acute onset anxiety, palpitations, epigastric pain with vomiting since 6 hours prior to ED arrival. Patient states she has had multiple episodes of the same which she attributes to her cyclic vomiting syndrome. Patient states she was diagnosed at age 1. She is not currently under management by PCP or GI specialist due to loss of insurance. She is not currently taking any medications. Reports feeling anxious, disease, dry mouth, and upper abdominal pain. Denies diarrhea. No fever, chills, sweats, hematemesis or biliary emesis. No flank pain, dysuria or hematuria. No other acute symptoms or complaints. Review of Systems Review of Systems Review symptoms as per history of present illness. All other review symptoms are negative. Current Medications Current Medications Current Medications Medications (Trade) Dose Ordered Sig/Arnaldo Start Time Stop Time Status Last Admin Dose Admin Dicyclomine HCl (Bentyl) 10 mg 1X ONCE 08/09/17 14:15 08/09/17 14:16 DC 08/09/17 14:02 10 MG Famotidine (Pepcid) 20 mg 1X ONCE 08/09/17 12:45 08/09/17 12:46 DC 08/09/17 12:53 20 MG Haloperidol Lactate (Haldol) 5 mg 1X ONCE 08/09/17 13:00 08/09/17 13:01 DC 08/09/17 13:03 5 MG Ketorolac Tromethamine (Toradol) 30 mg 1X ONCE 08/09/17 16:30 08/09/17 16:31 DC 08/09/17 16:16 30 MG Ondansetron HCl (Zofran) 8 mg 1X ONCE 08/09/17 13:00 08/09/17 13:01 DC 08/09/17 13:02 8 MG Prochlorperazine Edisylate (Compazine) 10 mg 1X ONCE 08/09/17 18:15 08/09/17 18:16 DC 08/09/17 18:35 10 MG Sodium Chloride 1,000 ml @ 1,000 mls/hr 1X ONCE 08/09/17 16:30 10/23/17 17:29 DC 08/09/17 16:14 1,000 MLS/HR Tramadol HCl (Ultram) 50 mg 1X ONCE 08/09/17 19:15 08/09/17 19:16 DC 08/09/17 19:14 50 MG Allergies Allergies Allergies Coded Allergies Type Severity Reaction Last Updated Verified coconut Allergy Severe Anaphylaxis 01/22/17 Yes Physical Exam Physical Exam Constitutional: Well developed, well nourished, anxious, tearful. [] HENT: Normocephalic, atraumatic, oropharynx moist, no oral exudates, nose normal. [] Eyes: PERRLA, EOMI, conjunctiva normal, no discharge. [] Neck: Normal range of motion. [] Cardiovascular: Tachycardic[] Lungs & Thorax: Bilateral breath sounds clear to auscultation [] Abdomen: Bowel sounds normal, soft, epigastric pain, tenderness. [] Skin: Warm, dry. [] Back: No tenderness. [] Extremities: No tenderness. [] Neurologic: Alert and oriented X 3, normal motor function, normal sensory function, no focal deficits noted. [] Psychologic: Affect normal, judgement normal, mood normal. [] Current Patient Data Vital Signs Vital Signs Date Time Temp Pulse Resp B/P (MAP) Pulse Ox O2 Delivery O2 Flow Rate FiO2 08/09/17 19:15 111 22 135/87 (103) 98 Room Air 08/09/17 12:27 98.0 98.0 Lab Values Laboratory Tests Test 08/09/17 12:36 08/09/17 12:40 POC Urine HCG, Qualitative Hcg negative (Negative) White Blood Count 11.8 x10^3/uL (4.0-11.0) H Red Blood Count 5.00 x10^6/uL (3.50-5.40) Hemoglobin 15.2 g/dL (12.0-15.5) Hematocrit 44.2 % (36.0-47.0) Mean Corpuscular Volume 88 fL (79-100) Mean Corpuscular Hemoglobin 31 pg (25-35) Mean Corpuscular Hemoglobin Concent 35 g/dL (31-37) Red Cell Distribution Width 13.5 % (11.5-14.5) Platelet Count 257 x10^3/uL (140-400) Neutrophils (%) (Auto) 85 % (31-73) H Lymphocytes (%) (Auto) 12 % (24-48) L Monocytes (%) (Auto) 3 % (0-9) Eosinophils (%) (Auto) 0 % (0-3) Basophils (%) (Auto) 0 % (0-3) Neutrophils # (Auto) 10.0 x10^3uL (1.8-7.7) H Lymphocytes # (Auto) 1.4 x10^3/uL (1.0-4.8) Monocytes # (Auto) 0.3 x10^3/uL (0.0-1.1) Eosinophils # (Auto) 0.0 x10^3/uL (0.0-0.7) Basophils # (Auto) 0.0 x10^3/uL (0.0-0.2) Sodium Level 140 mmol/L (136-145) Potassium Level 3.2 mmol/L (3.5-5.1) L Chloride Level 100 mmol/L (98-107) Carbon Dioxide Level 25 mmol/L (21-32) Anion Gap 15 (6-14) H Blood Urea Nitrogen 12 mg/dL (7-20) Creatinine 1.0 mg/dL (0.6-1.0) Estimated GFR (Cockcroft-Gault) 68.1 BUN/Creatinine Ratio 12 (6-20) Glucose Level 159 mg/dL (70-99) H Calcium Level 9.7 mg/dL (8.5-10.1) Total Bilirubin 0.8 mg/dL (0.2-1.0) Aspartate Amino Transferase (AST) 23 U/L (15-37) Alanine Aminotransferase (ALT) 32 U/L (14-59) Alkaline Phosphatase 68 U/L (46-116) Total Protein 8.8 g/dL (6.4-8.2) H Albumin 4.7 g/dL (3.4-5.0) Albumin/Globulin Ratio 1.1 (1.0-1.7) Serum Test, Qualitative Negative (NEG) Laboratory Tests 08/09/17 12:40 Laboratory Tests 08/09/17 12:40 EKG EKG [] Radiology/Procedures Radiology/Procedures [CT abdomen pelvis dated 07/2017 reviewed.] Course & Med Decision Making Course & Med Decision Making Pertinent Labs and Imaging studies reviewed. (See chart for details) [Patient's abdomen soft, nonsurgical. Recent CT abdomen and pelvis as needed. Patient given multiple antiemetics with IV fluids and Toradol, Bentyl and Tramadol for pain. Symptoms improved while in the emergency department and tolerates by mouth intake. Treat supportively with outpatient follow-up.] Dragon Disclaimer Dragon Disclaimer This electronic medical record was generated, in whole or in part, using a voice recognition dictation system. Departure Departure Impression: Primary Impression: Chronic epigastric pain Additional Impression: Nausea & vomiting Disposition: HOME, SELF-CARE Condition: GOOD Referrals: NO PCP (PCP) Problem Qualifiers JENNA DEVRIES DO Aug 09, 2017 14:29
[2017-08-09] MEDS ORDERED: KETOROLAC 30 MG/ML INJ. IV ONE (16:30)
[2017-08-09] MEDS ORDERED: PROCHLORPERAZINE 10 MG/2 ML VIAL. IV ONE (18:15)
[2017-08-09 19:15] VITALS: BP 135/87
[2017-08-09] MEDS ORDERED: traMADol 50 MG TABLET PO ONE (19:15)
== END 2017-08-09 19:30 | disposition home or self-care (01) ==
LOC: ER 12:24
DX: G89.29 Other chronic pain (principal); R10.13 Epigastric pain; R11.2 Nausea with vomiting, unspecified; F41.9 Anxiety disorder, unspecified; F12.10 Cannabis abuse, uncomplicated; Z90.49 Acquired absence of other specified parts of digestive tract; Z91.048 Other nonmedicinal substance allergy status
CPT/HCPCS: 36415; 80053; 81025; 84703; 85025; 96361; 96372; 96374; 96375; 99284; J0500; J0780; J1630; J1885; J7030; S0028; J2405

== ENCOUNTER 2017-08-14 17:27 | Emergency (ER) | payer SELFPAY ==
[~2017-08-14] VITALS: Ht 167.6 cm; Wt 61.2 kg
[2017-08-14 17:53] LABS: BASO # 0.1 x10^3/uL (0.0-0.2); BASO % 0 % (0-3); EOS % 0 % (0-3); HEMATOCRIT 42.4 % (36.0-47.0); HEMOGLOBIN 14.3 g/dL (12.0-15.5); LYMPH # 0.7 x10^3/uL (1.0-4.8); LYMPH % 4 % (24-48); MEAN CORPUSCULAR HEMOGLOBIN 29 pg (25-35); MEAN CORPUSCULAR HGB CONC 34 g/dL (31-37); MEAN CORPUSCULAR VOLUME 88 fL (79-100); MONO % 2 % (0-9); NEUT % 94 % (31-73); PLATELET COUNT 252 x10^3/uL (140-400); RED BLOOD COUNT 4.85 x10^6/uL (3.50-5.40); RED CELL DISTRIBUTION WIDTH 13.5 % (11.5-14.5); WHITE BLOOD COUNT 16.3 x10^3/uL (4.0-11.0)
[2017-08-14] MEDS ORDERED: KETOROLAC 30 MG/ML INJ. IV ONE (18:00)
[2017-08-14] MEDS ORDERED: IV NORMAL SALINE 1000ML BAG 1,000 ML IV ONE ×2 (18:00→21:00)
[2017-08-14] MEDS ORDERED: HALOPERIDOL LACTATE 5 MG/ML VIAL. IVP ONE ×2 (18:00→22:00)
--- NOTE | 2017-08-14 18:02 | PHYS DOC ---
Past Medical History Past Medical History: Anxiety, Other Additional Past Medical Histor: cyclic vomiting syndrome, PANIC ATTACKS Past Surgical History: Cholecystectomy Alcohol Use: None Drug Use: Marijuana Social History Narrative: LAST USE YESTERDAY Adult General Chief Complaint Chief Complaint: NAUSEA/VOMITING/DIARRHA HPI HPI Patient is a 22 year old female with history of anxiety and cyclic vomiting syndrome who is well-known to this emergency department and was last evaluated 2 days ago by this physician who presents with recurrence of epigastric pain nausea and vomiting. Patient reports feeling anxious with multiple episodes of emesis and abdominal pain this morning. Patient arrives with EMS. No witnessed vomiting but EMS states patient was retching during transfer. EMS unable to establish IV. Patient tearful and anxious on ED arrival. Review of Systems Review of Systems ROS as per HPI. Current Medications Current Medications Current Medications Medications (Trade) Dose Ordered Sig/Arnaldo Start Time Stop Time Status Last Admin Dose Admin Acetaminophen/ Hydrocodone Bitart (Lortab 5/325) 1 tab 1X ONCE 08/14/17 23:00 08/14/17 23:01 Dicyclomine HCl (Bentyl) 10 mg 1X ONCE 08/14/17 19:00 08/14/17 19:01 DC 08/14/17 19:02 10 MG Famotidine (Pepcid) 20 mg 1X ONCE 08/14/17 21:15 08/14/17 21:16 DC 08/14/17 21:03 20 MG Haloperidol Lactate (Haldol) 2.5 mg 1X ONCE 08/14/17 22:00 08/14/17 22:01 DC 08/14/17 22:23 2.5 MG Info (Do NOT chart on this entry -- for MONITORING) 1 each PRN DAILY PRN 08/14/17 19:15 08/16/17 19:14 Iohexol (Omnipaque 300 Mg/ml) 75 ml 1X ONCE 08/14/17 19:30 08/14/17 19:31 DC 08/14/17 19:32 75 ML Ketorolac Tromethamine (Toradol) 30 mg 1X ONCE 08/14/17 18:00 08/14/17 18:01 DC 08/14/17 17:57 30 MG Potassium Chloride (Klor-Con) 40 meq 1X ONCE 08/14/17 23:00 08/14/17 23:01 Sodium Chloride 1,000 ml @ 1,000 mls/hr 1X ONCE 08/14/17 21:00 08/14/17 21:59 DC 08/14/17 20:43 1,000 MLS/HR Allergies Allergies Allergies Coded Allergies Type Severity Reaction Last Updated Verified coconut Allergy Severe Anaphylaxis 01/22/17 Yes Physical Exam Physical Exam Constitutional: Well developed, tearful, anxious.. [] HENT: Normocephalic, atraumatic, bilateral external ears normal, oropharynx moist, no oral exudates, nose normal. [] Eyes: PERRLA, EOMI, conjunctiva normal, no discharge. [] Neck: Normal range of motion, no tenderness, supple, no stridor. [] Cardiovascular:Heart rate regular rhythm, no murmur [] Lungs & Thorax: Bilateral breath sounds clear to auscultation [] Abdomen: Bowel sounds normal, soft, diffuse upper abdominal pain, no tenderness.. [] Skin: Warm, dry, no erythema, no rash. [] Back: No tenderness, no CVA tenderness. [] Extremities: No tenderness, no cyanosis, no clubbing, ROM intact, no edema. [] Neurologic: Alert and oriented X 3, walks with steady gait. [] Psychologic: Affect normal, anxious. [] Current Patient Data Vital Signs Vital Signs Date Time Temp Pulse Resp B/P (MAP) Pulse Ox O2 Delivery O2 Flow Rate FiO2 08/14/17 20:30 82 31 153/81 (105) 9 Room Air 08/14/17 17:30 99.0 99.0 Lab Values Laboratory Tests Test 08/14/17 17:40 08/14/17 19:08 08/14/17 19:13 White Blood Count 16.3 x10^3/uL (4.0-11.0) H Red Blood Count 4.85 x10^6/uL (3.50-5.40) Hemoglobin 14.3 g/dL (12.0-15.5) Hematocrit 42.4 % (36.0-47.0) Mean Corpuscular Volume 88 fL (79-100) Mean Corpuscular Hemoglobin 29 pg (25-35) Mean Corpuscular Hemoglobin Concent 34 g/dL (31-37) Red Cell Distribution Width 13.5 % (11.5-14.5) Platelet Count 252 x10^3/uL (140-400) Neutrophils (%) (Auto) 94 % (31-73) H Lymphocytes (%) (Auto) 4 % (24-48) L Monocytes (%) (Auto) 2 % (0-9) Eosinophils (%) (Auto) 0 % (0-3) Basophils (%) (Auto) 0 % (0-3) Neutrophils # (Auto) 15.2 x10^3uL (1.8-7.7) H Lymphocytes # (Auto) 0.7 x10^3/uL (1.0-4.8) L Monocytes # (Auto) 0.3 x10^3/uL (0.0-1.1) Eosinophils # (Auto) 0.0 x10^3/uL (0.0-0.7) Basophils # (Auto) 0.1 x10^3/uL (0.0-0.2) Segmented Neutrophils % 81 % (35-66) H Band Neutrophils % 9 % (0-9) Lymphocytes % 6 % (24-48) L Atypical Lymphocytes % (Manual) 4 % (0-0) H Platelet Estimate Adequate (ADEQUATE) Sodium Level 135 mmol/L (136-145) L Potassium Level 3.1 mmol/L (3.5-5.1) L Chloride Level 94 mmol/L (98-107) L Carbon Dioxide Level 23 mmol/L (21-32) Anion Gap 18 (6-14) H Blood Urea Nitrogen 6 mg/dL (7-20) L Creatinine 0.8 mg/dL (0.6-1.0) Estimated GFR (Cockcroft-Gault) 88.1 BUN/Creatinine Ratio 8 (6-20) Glucose Level 126 mg/dL (70-99) H Calcium Level 9.6 mg/dL (8.5-10.1) Total Bilirubin 0.7 mg/dL (0.2-1.0) Aspartate Amino Transferase (AST) 17 U/L (15-37) Alanine Aminotransferase (ALT) 24 U/L (14-59) Alkaline Phosphatase 65 U/L (46-116) Total Protein 8.5 g/dL (6.4-8.2) H Albumin 4.5 g/dL (3.4-5.0) Albumin/Globulin Ratio 1.1 (1.0-1.7) Lipase 78 U/L (73-393) Acetone Level Neg (NEG) Urine Collection Type Unknown Urine Color Yellow Urine Clarity Clear Urine pH 7.5 Urine Specific [place] 1.015 Urine Protein 100 mg/dL (NEG-TRACE) Urine Glucose (UA) Negative mg/dL (NEG) Urine Ketones (Stick) >=80 mg/dL (NEG) Urine Blood Negative (NEG) Urine Nitrite Negative (NEG) Urine Bilirubin Negative (NEG) Urine Urobilinogen Dipstick 0.2 mg/dL (0.2 mg/dL) Urine Leukocyte Esterase Trace (NEG) Urine RBC 3-5 /HPF (0-2) Urine WBC 0 /HPF (0-4) Urine Squamous Epithelial Cells Many /LPF Urine Bacteria 0 /HPF (0-FEW) Urine Opiates Screen Neg (NEG) Urine Methadone Screen Neg (NEG) Urine Barbiturates Neg (NEG) Urine Phencyclidine Screen Neg (NEG) Urine Amphetamine/Methamphetamine Neg (NEG) Urine Benzodiazepines Screen Neg (NEG) Urine Cocaine Screen Neg (NEG) Urine Cannabinoids Screen Pos (NEG) Urine Ethyl Alcohol Neg (NEG) POC Urine HCG, Qualitative Hcg negative (Negative) Laboratory Tests 08/14/17 17:40 Laboratory Tests 08/14/17 17:40 EKG EKG [] Radiology/Procedures Radiology/Procedures [CT abdomen pelvis: No acute intra-abdominal process per radiology report.] Course & Med Decision Making Course & Med Decision Making Pertinent Labs and Imaging studies reviewed. (See chart for details) [Patient's abdomen soft nonsurgical and serial exam. Elevated white blood cell count possibly due to stress reaction. CT abdomen pelvis nonacute. Vomiting controlled in the ED. Patient tolerates oral intake and potassium tablets. Recommend follow-up with PCP and/or dev manager for management of chronic vomiting syndrome. Compazine prescribed. Return precautions reviewed. Patient alert and oriented walking around room with stable gait time of discharge. Patient verbalizes understanding with discharge instructions prior to departure.] Dragon Disclaimer Dragon Disclaimer This electronic medical record was generated, in whole or in part, using a voice recognition dictation system. Departure Departure Impression: Primary Impression: Nausea & vomiting Additional Impressions: Hypokalemia Abdominal pain Disposition: HOME, SELF-CARE Referrals: NO PCP (PCP) Patient Instructions: Abdominal Pain (Nonspecific), Hypokalemia-Brief, Nausea and Vomiting, [id number] Problem Qualifiers JENNA DEVRIES DO Aug 14, 2017 18:01
[2017-08-14 18:32] LABS: ANION GAP 18 (6-14); BLOOD UREA NITROGEN 6 mg/dL (7-20); BUN/CREATININE RATIO 8 (6-20); CALCIUM 9.6 mg/dL (8.5-10.1); CARBON DIOXIDE 23 mmol/L (21-32); CHLORIDE 94 mmol/L (98-107); CREATININE 0.8 mg/dL (0.6-1.0); GFR 88.1; GLUCOSE 126 mg/dL (70-99); POTASSIUM 3.1 mmol/L (3.5-5.1); SODIUM 135 mmol/L (136-145)
[2017-08-14 18:38] LABS: ACETONE NEG (NEG); ALBUMIN 4.5 g/dL (3.4-5.0); ALBUMIN/GLOBULIN RATIO 1.1 (1.0-1.7); ALK PHOS 65 U/L (46-116); ALT (SGPT) 24 U/L (14-59); AST (SGOT) 17 U/L (15-37); TOTAL BILIRUBIN 0.7 mg/dL (0.2-1.0); TOTAL PROTEIN 8.5 g/dL (6.4-8.2)
[2017-08-14 18:49] LABS: PLT ESTIMATE ADEQUATE (ADEQUATE)
[2017-08-14] MEDS ORDERED: DICYCLOMINE 20 MG/2 ML AMPUL. IM ONE (19:00)
[2017-08-14] MEDS ORDERED: CONTRAST GIVEN MC PRN (19:15)
[2017-08-14 19:20] LABS: BILIRUBIN,URINE NEGATIVE (NEG); GLUCOSE,URINE NEGATIVE (NEG); NITRITE,URINE NEGATIVE (NEG); PH,URINE 7.5; PROTEIN,URINE 100 mg/dL (NEG-TRACE); UROBILINOGEN,URINE 0.2 mg/dL (0.2 mg/dL)
[2017-08-14] MEDS ORDERED: IOHEXOL 300 MG/ML 75 ML VIAL IV ONE (19:30)
[2017-08-14 19:41] LABS: BARBITURATES NEG (NEG); BENZODIAZEPINES NEG (NEG); CANNABINOIDS POS (NEG); COCAINE NEG (NEG); METHADONE NEG (NEG); OPIATES NEG (NEG); PHENCYCLIDINE NEG (NEG)
--- NOTE | 2017-08-14 19:42 | RAD ---
EXAM: Abdomen and pelvis CT with intravenous contrast. HISTORY: Pain. TECHNIQUE: Computed tomographic images of the abdomen and pelvis were obtained following the administration of 75 cc Omnipaque 300 intravenous contrast. Multiplanar reformatting was performed. *One or more of the following individualized dose reduction techniques were utilized for this examination: 1. Automated exposure control. 2. Adjustment of the mA and/or kV according to patient size. 3. Use of iterative reconstruction technique. COMPARISON: None. FINDINGS: Evaluation of the lower thorax is unremarkable. No suspicious hepatic lesion is seen. The gallbladder is surgically absent. The pancreas, spleen, adrenal glands and left kidney are unremarkable. There is slight lateral right renal cortical lobulation, developmental or due to scarring. No abnormally thickened or dilated loop of bowel is seen. The appendix is unremarkable. There is an intrauterine contraceptive device within the endometrial cavity. There are multiple ovarian follicles. There is a suspected 2.7 cm dominant right ovarian follicular cyst. There is an adjacent somewhat tubular fluid-filled structure which may be due to a prominent right fallopian tube or additional follicular cyst. There is a small amount of pelvic free fluid. No pathologically enlarged lymph node is seen. There is no suspicious osseous lesion. IMPRESSION: 1. 2.7 cm dominant right ovarian follicular cyst with small amount of nonspecific pelvic free fluid. There is a somewhat tubular fluid-filled structure along the right ovary which may be due to an additional follicular cyst or slight hydrosalpinx. This is best appreciated on coronal reconstructed images. 2. Otherwise, no acute abdominal or pelvic finding. Electronically signed by: Salma Hansen MD (08/14/2017 7:39 PM) [id number]
[2017-08-14 19:59] LABS: BACTERIA,URINE 0 /HPF (0-FEW); SQUAMOUS EPITHELIAL CELL,UR MANY /LPF; WBC,URINE 0 /HPF (0-4)
[2017-08-14] MEDS ORDERED: FAMOTIDINE 20 MG/2 ML VIAL IVP ONE (21:15)
[2017-08-14 21:30] VITALS: BP 156/99
[2017-08-14] MEDS ORDERED: HYDROcodone/APAP 5/325MG 1 TAB TABLET PO ONE (23:00)
[2017-08-14] MEDS ORDERED: POTASSIUM CHLORIDE 20 MEQ TABLET.ER. PO ONE (23:00)
[2017-08-20] MEDS ORDERED: OXYC5CAP PO (08:56)
[2017-08-20] MEDS ORDERED: ONDA4TAB10 PO (08:56)
[2017-08-20] MEDS ORDERED: PROC10TA57 PO (08:56)
== END 2017-08-14 22:55 | disposition home or self-care (01) ==
LOC: ER 17:27
DX: R11.2 Nausea with vomiting, unspecified (principal); R10.13 Epigastric pain; R10.84 Generalized abdominal pain; E87.6 Hypokalemia; G43.A0 Cyclical vomiting, in migraine, not intractable; F41.0 Panic disorder [episodic paroxysmal anxiety]; Z91.018 Allergy to other foods
CPT/HCPCS: 36415; 74177; 80053; 80307; 81001; 81025; 82010; 83690; 85007; 85025; 87086; 96361; 96372; 96374; 96375; 96376; 99285; J0500; J1630; J1885; J7030; Q9967; S0028; G0479

== ENCOUNTER 2017-09-03 09:40 | Emergency (ER) | payer SELFPAY ==
[~2017-09-03] VITALS: Ht 162.6 cm; Wt 61.2 kg
[2017-09-03] MEDS ORDERED: IV NORMAL SALINE 1000ML BAG 1,000 ML IV ONE (09:45)
[2017-09-03] MEDS ORDERED: HALOPERIDOL LACTATE 5 MG/ML VIAL. IVP ONE (09:45)
[2017-09-03] MEDS ORDERED: ONDANSETRON PF 4 MG/2 ML VIAL. IV ONE (09:45)
[2017-09-03 10:14] LABS: BASO % 0 % (0-3); EOS % 0 % (0-3); HEMATOCRIT 42.7 % (36.0-47.0); HEMOGLOBIN 14.5 g/dL (12.0-15.5); LYMPH # 1.2 x10^3/uL (1.0-4.8); LYMPH % 10 % (24-48); MEAN CORPUSCULAR HEMOGLOBIN 30 pg (25-35); MEAN CORPUSCULAR HGB CONC 34 g/dL (31-37); MEAN CORPUSCULAR VOLUME 88 fL (79-100); MONO % 3 % (0-9); NEUT % 86 % (31-73); PLATELET COUNT 235 x10^3/uL (140-400); RED BLOOD COUNT 4.85 x10^6/uL (3.50-5.40); RED CELL DISTRIBUTION WIDTH 13.4 % (11.5-14.5); WHITE BLOOD COUNT 11.4 x10^3/uL (4.0-11.0)
[2017-09-03 11:00] LABS: NEG OBC SER NEG; POS OBC SER POS
[2017-09-03 11:03] LABS: ALBUMIN 4.5 g/dL (3.4-5.0); ALBUMIN/GLOBULIN RATIO 1.2 (1.0-1.7); CALCIUM 9.8 mg/dL (8.5-10.1); CREATININE 0.8 mg/dL (0.6-1.0); GFR 88.1; POTASSIUM 4.5 mmol/L (3.5-5.1); TOTAL BILIRUBIN 0.5 mg/dL (0.2-1.0); TOTAL PROTEIN 8.2 g/dL (6.4-8.2)
[2017-09-03] MEDS ORDERED: FAMOTIDINE 20 MG/2 ML VIAL IVP ONE (11:15)
[2017-09-03] MEDS ORDERED: METOCLOPRAMIDE HCL 10 MG/2 ML VIAL. IV ONE (11:15)
[2017-09-03 12:40] VITALS: BP 129/76
[2017-09-03 13:20] LABS: PLT ESTIMATE ADEQUATE (ADEQUATE)
--- NOTE | 2017-09-03 13:20 | PHYS DOC ---
Past Medical History Past Medical History: Anxiety, Other Additional Past Medical Histor: cyclic vomiting syndrome, PANIC ATTACKS Past Surgical History: Cholecystectomy Alcohol Use: None Drug Use: Marijuana Adult General Chief Complaint Chief Complaint: ABDOMINAL PAIN HPI HPI Patient is a 22 year old well known to this emergency department history of cyclic vomiting syndrome, medical noncompliance and narcotic abuse who presents with episodic nausea with vomiting this morning upon waking. Patient also reports diffuse epigastric pain consistent with prior symptoms. Vomit basin contains sputum and [place]. Patient denies vomiting, flank pain, fever chills and sweats. States she has not filled any nausea medication since recent visit, has not follow-up with PCP or GI physician due to lack of insurance but continues to smoke. No other acute symptoms or complaints. [] Review of Systems Review of Systems Review symptoms as prescribed. All other review symptoms are negative. [] All other systems were reviewed and found to be within normal limits, except as documented in this note. Current Medications Current Medications Current Medications Medications (Trade) Dose Ordered Sig/Arnaldo Start Time Stop Time Status Last Admin Dose Admin Famotidine (Pepcid Vial) 20 mg 1X ONCE 09/03/17 11:15 09/03/17 11:20 DC 09/03/17 11:40 20 MG Haloperidol Lactate (Haldol) 5 mg 1X ONCE 09/03/17 09:45 09/03/17 09:51 DC 09/03/17 10:07 5 MG Metoclopramide HCl (Reglan Vial) 10 mg 1X ONCE 09/03/17 11:15 09/03/17 11:20 DC 09/03/17 11:40 10 MG Ondansetron HCl (Zofran) 8 mg 1X ONCE 09/03/17 09:45 09/03/17 09:51 DC 09/03/17 10:07 8 MG Sodium Chloride 1,000 ml @ 1,000 mls/hr 1X ONCE 09/03/17 09:45 09/03/17 10:44 DC 09/03/17 10:09 1,000 MLS/HR Allergies Allergies Allergies Coded Allergies Type Severity Reaction Last Updated Verified coconut Allergy Severe Anaphylaxis 01/22/17 Yes Physical Exam Physical Exam Constitutional: Well developed, well nourished, anxious. [] HENT: Normocephalic, atraumatic, bilateral external ears normal, oropharynx moist, no oral exudates, nose normal. [] Eyes: PERRLA, EOMI, conjunctiva normal, no discharge. [] Neck: Normal range of motion, no tenderness, supple, no stridor. [] Cardiovascular:Heart rate regular rhythm, no murmur [] Lungs & Thorax: Bilateral breath sounds clear to auscultation [] Abdomen: Bowel sounds normal, soft, epigastric pain, tenderness. No guarding. [ ] Skin: Warm, dry, no erythema, no rash. [] Back: No tenderness, no CVA tenderness. [] Extremities: No tenderness. [] Neurologic: Alert and oriented X 3, normal motor function, normal sensory function, no focal deficits noted. [] Psychologic: Affect normal, judgement normal, mood normal. [] Current Patient Data Vital Signs Vital Signs Date Time Temp Pulse Resp B/P (MAP) Pulse Ox O2 Delivery O2 Flow Rate FiO2 09/03/17 12:40 88 18 129/76 (93) 100 Room Air 09/03/17 09:41 98.0 98.0 Lab Values Laboratory Tests Test 09/03/17 10:03 09/03/17 10:30 White Blood Count 11.4 x10^3/uL (4.0-11.0) H Red Blood Count 4.85 x10^6/uL (3.50-5.40) Hemoglobin 14.5 g/dL (12.0-15.5) Hematocrit 42.7 % (36.0-47.0) Mean Corpuscular Volume 88 fL (79-100) Mean Corpuscular Hemoglobin 30 pg (25-35) Mean Corpuscular Hemoglobin Concent 34 g/dL (31-37) Red Cell Distribution Width 13.4 % (11.5-14.5) Platelet Count 235 x10^3/uL (140-400) Neutrophils (%) (Auto) 86 % (31-73) H Lymphocytes (%) (Auto) 10 % (24-48) L Monocytes (%) (Auto) 3 % (0-9) Eosinophils (%) (Auto) 0 % (0-3) Basophils (%) (Auto) 0 % (0-3) Neutrophils # (Auto) 9.8 x10^3uL (1.8-7.7) H Lymphocytes # (Auto) 1.2 x10^3/uL (1.0-4.8) Monocytes # (Auto) 0.4 x10^3/uL (0.0-1.1) Eosinophils # (Auto) 0.0 x10^3/uL (0.0-0.7) Basophils # (Auto) 0.0 x10^3/uL (0.0-0.2) Platelet Estimate Pending Sodium Level 140 mmol/L (136-145) Potassium Level 4.5 mmol/L (3.5-5.1) Chloride Level 103 mmol/L (98-107) Carbon Dioxide Level 24 mmol/L (21-32) Anion Gap 13 (6-14) Blood Urea Nitrogen 11 mg/dL (7-20) Creatinine 0.8 mg/dL (0.6-1.0) Estimated GFR (Cockcroft-Gault) 88.1 BUN/Creatinine Ratio 14 (6-20) Glucose Level 136 mg/dL (70-99) H Calcium Level 9.8 mg/dL (8.5-10.1) Total Bilirubin 0.5 mg/dL (0.2-1.0) Aspartate Amino Transferase (AST) 28 U/L (15-37) Alanine Aminotransferase (ALT) 84 U/L (14-59) H Alkaline Phosphatase 72 U/L (46-116) Total Protein 8.2 g/dL (6.4-8.2) Albumin 4.5 g/dL (3.4-5.0) Albumin/Globulin Ratio 1.2 (1.0-1.7) Lipase 86 U/L (73-393) Serum Test, Qualitative Negative (NEG) Laboratory Tests 09/03/17 10:03 Laboratory Tests 09/03/17 10:30 EKG EKG [] Radiology/Procedures Radiology/Procedures [] Course & Med Decision Making Course & Med Decision Making Pertinent Labs and Imaging studies reviewed. (See chart for details) [Haldol, Zofran, Pepcid and Reglan given. IV fluids given. No witnessed vomiting any episodes in the ED. Patient does complain of chronic pain. Patient repeatedly requesting a narcotic pain medication. I discussed my hasn't given narcotic pain medication give her chronic medical condition and noncompliance. High risk of abuse evidence. Recommend filling nausea medications as previously prescribed and following up with PCP and GI physician.] Dragon Disclaimer Dragon Disclaimer This electronic medical record was generated, in whole or in part, using a voice recognition dictation system. Departure Departure Impression: Primary Impression: Chronic epigastric pain Additional Impression: Nausea & vomiting Disposition: 01 HOME, SELF-CARE Condition: GOOD Referrals: NO PCP (PCP) Patient Instructions: Abdominal Pain (Nonspecific), Nausea and Vomiting, Easy- to-Read Additional Instructions: You were evaluated in the emergency department for abdominal pain and nausea vomiting. Please fill nausea prescriptions previously provided on recent ER visits. His follow-up with PCP and GI physician. Problem Qualifiers JENNA DEVRIES DO Sep 03, 2017 13:20
[2017-09-18] MEDS ORDERED: AMIT50TA PO (10:21)
[2017-09-18] MEDS ORDERED: ONDA4TAB10 SL (10:21)
[2017-09-18] MEDS ORDERED: PROC10TA57 PO (10:21)
[2017-09-18] MEDS ORDERED: OXYC5CAP PO (10:21)
== END 2017-09-03 13:32 | disposition home or self-care (01) ==
LOC: ER 09:40
DX: R11.2 Nausea with vomiting, unspecified (principal); G89.29 Other chronic pain; R10.13 Epigastric pain; Z91.14 Patient's other noncompliance with medication regimen; F17.200 Nicotine dependence, unspecified, uncomplicated; Z90.49 Acquired absence of other specified parts of digestive tract; Z91.018 Allergy to other foods
CPT/HCPCS: 36415; 80053; 83690; 84703; 85007; 85025; 96361; 96374; 96375; 99284; J1630; J2405; J2765; J7030; S0028

== ENCOUNTER 2017-09-10 09:21 | Emergency (ER) | payer SELFPAY ==
[2017-09-10] MEDS ORDERED: IV NORMAL SALINE 1000ML BAG 1,000 ML IV SCH (09:44)
[2017-09-10] MEDS ORDERED: FAMOTIDINE 20 MG/2 ML VIAL IVP ONE (09:45)
[2017-09-10] MEDS ORDERED: HALOPERIDOL LACTATE 5 MG/ML VIAL. IVP ONE (09:45)
--- NOTE | 2017-09-10 09:50 | PHYS DOC ---
Past Medical History Past Medical History: Anxiety, Other Additional Past Medical Histor: cyclic vomiting syndrome, PANIC ATTACKS Past Surgical History: Cholecystectomy Alcohol Use: None Drug Use: Marijuana Adult General Chief Complaint Chief Complaint: NAUSEA/VOMITING/DIARRHA HPI HPI Patient is a 22 year old female who presents with complaint of abdominal pain and vomiting for the past 2 days. The patient has had multiple visits to the emergency department for similar complaints. Patient has history of recurrent vomiting syndrome and chronic upper abdominal pain. The patient states that her symptoms are typical with previous flareups. Patient states however she is having more pain than usual as she has been having vomiting over the course of 2 days which has worsened her pain. Patient denies any fevers or any other atypical symptoms. Patient rates her pain as 10 out of 10. Patient states that the worst of it is in her upper abdomen that she is having some generalized abdominal pain which she attributes to her vomiting. Patient states that she is setting up her primary care at [facility]. Patient states that she does not have any medications at home to treat her symptoms currently. Patient denies any bloody stools or hematemesis. Review of Systems Review of Systems Constitutional: Denies fever or chills [] Eyes: Denies change in visual acuity, redness, or eye pain [] HENT: Denies nasal congestion or sore throat [] Respiratory: Denies cough or shortness of breath [] Cardiovascular: Denies chest pain or edema[] GI: Abdominal pain, nausea, vomiting, denies bloody stools[] : Denies dysuria or hematuria [] Musculoskeletal: Denies back pain or joint pain [] Integument: Denies rash or skin lesions [] Neurologic: Denies headache, focal weakness or sensory changes [] All other systems were reviewed and found to be within normal limits, except as documented in this note. Current Medications Current Medications Current Medications Medications (Trade) Dose Ordered Sig/Arnaldo Start Time Stop Time Status Last Admin Dose Admin Famotidine (Pepcid Vial) 20 mg 1X ONCE 09/10/17 09:45 09/10/17 09:50 DC 09/10/17 10:01 20 MG Haloperidol Lactate (Haldol) 5 mg 1X ONCE 09/10/17 09:45 09/10/17 09:50 DC 09/10/17 10:01 5 MG Ketorolac Tromethamine (Toradol) 30 mg 1X ONCE 09/10/17 10:45 09/10/17 10:46 DC 09/10/17 10:48 30 MG Ondansetron HCl (Zofran) 4 mg 1X ONCE 09/10/17 10:45 09/10/17 10:46 DC 09/10/17 10:48 4 MG Sodium Chloride 1,000 ml @ 1,000 mls/hr 1X ONCE 09/10/17 10:30 09/10/17 11:29 09/10/17 10:49 1,000 MLS/HR Allergies Allergies Allergies Coded Allergies Type Severity Reaction Last Updated Verified coconut Allergy Severe Anaphylaxis 01/22/17 Yes Physical Exam Physical Exam Constitutional: Alert, afebrile, actively vomiting. [] HENT: Normocephalic, atraumatic, bilateral external ears normal, oropharynx moist, no oral exudates, nose normal. [] Eyes: PERRLA, EOMI, conjunctiva normal, no discharge. [] Neck: Normal range of motion, no tenderness, supple, no stridor. [] Cardiovascular:Heart rate regular rhythm, no murmur [] Lungs & Thorax: Bilateral breath sounds clear to auscultation [] Abdomen: Bowel sounds normal, soft, diffusely tender in all 4 quadrants with voluntary guarding, no rebound tenderness, no masses, no pulsatile masses. [] Skin: Warm, dry, no erythema, no rash. [] Back: No tenderness, no CVA tenderness. [] Extremities: No tenderness, no cyanosis, no clubbing, ROM intact, no edema. [] Neurologic: Alert and oriented X 3, normal motor function, normal sensory function, no focal deficits noted. [] Current Patient Data Vital Signs Vital Signs Date Time Temp Pulse Resp B/P (MAP) Pulse Ox O2 Delivery O2 Flow Rate FiO2 09/10/17 09:41 98.3 99 18 126/76 (93) 100 Room Air 98.3 Lab Values Laboratory Tests Test 09/10/17 09:31 09/10/17 09:33 09/10/17 09:40 Urine Collection Type Void Urine Color Yellow Urine Clarity Cloudy Urine pH 6.0 Urine Specific [place] 1.025 Urine Protein 30 mg/dL (NEG-TRACE) Urine Glucose (UA) Negative mg/dL (NEG) Urine Ketones (Stick) Negative mg/dL (NEG) Urine Blood Negative (NEG) Urine Nitrite Negative (NEG) Urine Bilirubin Negative (NEG) Urine Urobilinogen Dipstick 0.2 mg/dL (0.2 mg/dL) Urine Leukocyte Esterase Moderate (NEG) Urine RBC Rare /HPF (0-2) Urine WBC 1-4 /HPF (0-4) Urine Squamous Epithelial Cells Many /LPF Urine Bacteria Moderate /HPF (0-FEW) POC Urine HCG, Qualitative Hcg negative (Negative) White Blood Count 11.0 x10^3/uL (4.0-11.0) Red Blood Count 5.64 x10^6/uL (3.50-5.40) H Hemoglobin 17.0 g/dL (12.0-15.5) H Hematocrit 49.1 % (36.0-47.0) H Mean Corpuscular Volume 87 fL (79-100) Mean Corpuscular Hemoglobin 30 pg (25-35) Mean Corpuscular Hemoglobin Concent 35 g/dL (31-37) Red Cell Distribution Width 13.5 % (11.5-14.5) Platelet Count 330 x10^3/uL (140-400) Neutrophils (%) (Auto) 74 % (31-73) H Lymphocytes (%) (Auto) 16 % (24-48) L Monocytes (%) (Auto) 10 % (0-9) H Eosinophils (%) (Auto) 0 % (0-3) Basophils (%) (Auto) 1 % (0-3) Neutrophils # (Auto) 8.1 x10^3uL (1.8-7.7) H Lymphocytes # (Auto) 1.7 x10^3/uL (1.0-4.8) Monocytes # (Auto) 1.1 x10^3/uL (0.0-1.1) Eosinophils # (Auto) 0.0 x10^3/uL (0.0-0.7) Basophils # (Auto) 0.1 x10^3/uL (0.0-0.2) Sodium Level 132 mmol/L (136-145) L Potassium Level 3.0 mmol/L (3.5-5.1) L Chloride Level 90 mmol/L (98-107) L Carbon Dioxide Level 32 mmol/L (21-32) Anion Gap 10 (6-14) Blood Urea Nitrogen 25 mg/dL (7-20) H Creatinine 1.2 mg/dL (0.6-1.0) H Estimated GFR (Cockcroft-Gault) 55.2 BUN/Creatinine Ratio 21 (6-20) H Glucose Level 154 mg/dL (70-99) H Calcium Level 10.4 mg/dL (8.5-10.1) H Total Bilirubin 1.1 mg/dL (0.2-1.0) H Aspartate Amino Transferase (AST) 20 U/L (15-37) Alanine Aminotransferase (ALT) 28 U/L (14-59) Alkaline Phosphatase 80 U/L (46-116) Total Protein 9.5 g/dL (6.4-8.2) H Albumin 4.9 g/dL (3.4-5.0) Albumin/Globulin Ratio 1.1 (1.0-1.7) Lipase 78 U/L (73-393) Laboratory Tests 09/10/17 09:40 Laboratory Tests 09/10/17 09:40 EKG EKG Not performed[] Radiology/Procedures Radiology/Procedures Not performed[] Course & Med Decision Making Course & Med Decision Making Pertinent Labs and Imaging studies reviewed. (See chart for details) The patient was treated with Haldol, Pepcid, Zofran, and Toradol. On reevaluation, patient's symptoms have improved. Patient's vital signs remained stable. Patient was given 2 L of IV fluids for treatment of dehydration. Patient was also treated with oral [place]. The patient was discharged with prescription for Zofran to help with vomiting. Advise follow-up with primary doctor in 3-5 days and return emergency department for any worsening symptoms. Patient voiced understanding and in agreement with treatment plan. Dragon Disclaimer Dragon Disclaimer This electronic medical record was generated, in whole or in part, using a voice recognition dictation system. Departure Departure Impression: Primary Impression: Chronic epigastric pain Additional Impression: Nausea & vomiting Disposition: 01 HOME, SELF-CARE Condition: IMPROVED Referrals: NO PCP (PCP) Patient Instructions: Abdominal Pain, Nausea and Vomiting Additional Instructions: Follow-up with your primary doctor in the next 3-5 days for reevaluation. Return to emergency department for any worsening symptoms. Scripts Ondansetron (ZOFRAN ODT) 4 Mg Tab.rapdis 1 TAB SL Q8HRS Y for NAUSEA/VOMITING, #15 TAB Prov: ELINOR LEDESMA MD 09/10/17 Problem Qualifiers Additional Impression: Nausea & vomiting Vomiting type: cyclical vomiting Vomiting Intractability: non-intractable Qualified Codes: G43.A0 - Cyclical vomiting, not intractable ELINOR LEDESMA MD Sep 10, 2017 09:50
[2017-09-10 09:58] LABS: BASO # 0.1 x10^3/uL (0.0-0.2); BASO % 1 % (0-3); EOS % 0 % (0-3); HEMATOCRIT 49.1 % (36.0-47.0); LYMPH # 1.7 x10^3/uL (1.0-4.8); LYMPH % 16 % (24-48); MEAN CORPUSCULAR HEMOGLOBIN 30 pg (25-35); MEAN CORPUSCULAR HGB CONC 35 g/dL (31-37); MEAN CORPUSCULAR VOLUME 87 fL (79-100); MONO % 10 % (0-9); NEUT % 74 % (31-73); PLATELET COUNT 330 x10^3/uL (140-400); RED BLOOD COUNT 5.64 x10^6/uL (3.50-5.40); RED CELL DISTRIBUTION WIDTH 13.5 % (11.5-14.5)
[2017-09-10 09:58] LABS: BILIRUBIN,URINE NEGATIVE (NEG); GLUCOSE,URINE NEGATIVE (NEG); NITRITE,URINE NEGATIVE (NEG); PROTEIN,URINE 30 mg/dL (NEG-TRACE); UROBILINOGEN,URINE 0.2 mg/dL (0.2 mg/dL)
[2017-09-10 10:09] LABS: ALBUMIN 4.9 g/dL (3.4-5.0); ALBUMIN/GLOBULIN RATIO 1.1 (1.0-1.7); CALCIUM 10.4 mg/dL (8.5-10.1); CREATININE 1.2 mg/dL (0.6-1.0); GFR 55.2; TOTAL BILIRUBIN 1.1 mg/dL (0.2-1.0); TOTAL PROTEIN 9.5 g/dL (6.4-8.2)
[2017-09-10 10:22] LABS: BACTERIA,URINE MODERATE /HPF (0-FEW); RBC,URINE RARE /HPF (0-2); SQUAMOUS EPITHELIAL CELL,UR MANY /LPF
[2017-09-10] MEDS ORDERED: IV NORMAL SALINE 1000ML BAG 1,000 ML IV ONE (10:30)
[2017-09-10] MEDS ORDERED: ONDANSETRON PF 4 MG/2 ML VIAL. IV ONE (10:45)
[2017-09-10] MEDS ORDERED: KETOROLAC 30 MG/ML INJ. IV ONE (10:45)
[2017-09-10] MEDS ORDERED: ONDA4TAB10 SL (11:29)
[2017-09-10] MEDS ORDERED: HYDROcodone/APAP 7.5/325MG 1 TAB TABLET PO ONE (11:30)
[2017-09-10 11:35] VITALS: BP 102/57
[2017-09-18] MEDS ORDERED: OXYC5CAP PO (10:21)
[2017-09-18] MEDS ORDERED: ONDA4TAB10 SL (10:21)
[2017-09-18] MEDS ORDERED: PROC10TA57 PO (10:21)
[2017-09-18] MEDS ORDERED: AMIT50TA PO (10:21)
== END 2017-09-10 11:39 | disposition home or self-care (01) ==
LOC: ER 09:21
DX: G89.29 Other chronic pain (principal); R10.13 Epigastric pain; G43.A0 Cyclical vomiting, in migraine, not intractable; Z90.49 Acquired absence of other specified parts of digestive tract; Z91.018 Allergy to other foods
CPT/HCPCS: 36415; 80053; 81001; 81025; 83690; 85025; 87086; 96361; 96374; 96375; 99285; J1630; J1885; J2405; J7030; S0028

== ENCOUNTER 2018-01-19 08:40 | Inpatient (IN) | payer SELFPAY ==
[2018-01-19 09:07] LABS: ADD MAN DIFF? NO
[2018-01-19 09:14] LABS: BASO % 0 % (0-3); EOS % 0 % (0-3); HEMOGLOBIN 15.5 g/dL (12.0-15.5); LYMPH # 1.8 x10^3/uL (1.0-4.8); LYMPH % 14 % (24-48); MEAN CORPUSCULAR HEMOGLOBIN 30 pg (25-35); MEAN CORPUSCULAR HGB CONC 34 g/dL (31-37); MEAN CORPUSCULAR VOLUME 88 fL (79-100); MONO # 0.6 x10^3/uL (0.0-1.1); MONO % 4 % (0-9); NEUT # 10.7 x10^3uL (1.8-7.7); NEUT % 81 % (31-73); PLATELET COUNT 238 x10^3/uL (140-400); RED BLOOD COUNT 5.11 x10^6/uL (3.50-5.40); RED CELL DISTRIBUTION WIDTH 13.6 % (11.5-14.5); WHITE BLOOD COUNT 13.2 x10^3/uL (4.0-11.0)
[2018-01-19] MEDS: diphenhydrAMINE 50 MG/ML VIAL IVP (09:21)
[2018-01-19 09:40] LABS: ANION GAP 16 (6-14); BLOOD UREA NITROGEN 19 mg/dL (7-20); BUN/CREATININE RATIO 24 (6-20); CALCIUM 9.7 mg/dL (8.5-10.1); CARBON DIOXIDE 19 mmol/L (21-32); CHLORIDE 104 mmol/L (98-107); CREATININE 0.8 mg/dL (0.6-1.0); GFR 88.1; GLUCOSE 161 mg/dL (70-99); POTASSIUM 3.7 mmol/L (3.5-5.1); SODIUM 139 mmol/L (136-145)
[2018-01-19 09:45] LABS: ALBUMIN 4.3 g/dL (3.4-5.0); ALBUMIN/GLOBULIN RATIO 1.1 (1.0-1.7); ALK PHOS 78 U/L (46-116); ALT (SGPT) 19 U/L (14-59); AST (SGOT) 18 U/L (15-37); TOTAL BILIRUBIN 0.7 mg/dL (0.2-1.0); TOTAL PROTEIN 8.2 g/dL (6.4-8.2)
[2018-01-19] MEDS: HALOPERIDOL LACTATE 5 MG/ML VIAL. IVP (09:59)
[2018-01-19 10:21] LABS: TROPONINI < 0.017 ng/mL (0.000-0.055)
[2018-01-19] MEDS: IV NORMAL SALINE 1000ML BAG 1,000 ML IV ×2 (10:36→16:32)
[2018-01-19] MEDS: METOCLOPRAMIDE HCL 10 MG/2 ML VIAL. IV (10:42)
[2018-01-19 11:07] LABS: URINE HCG POC HCG NEGATIVE (Negative)
[2018-01-19 11:08] LABS: BILIRUBIN,URINE NEGATIVE (NEG); CLARITY,URINE CLEAR; COLOR,URINE YELLOW; GLUCOSE,URINE NEGATIVE (NEG); NITRITE,URINE NEGATIVE (NEG); PH,URINE 6.5; PROTEIN,URINE 30 mg/dL (NEG-TRACE); UROBILINOGEN,URINE 0.2 mg/dL (0.2 mg/dL)
[2018-01-19] MEDS ORDERED: ACETAMINOPHEN 325 MG TABLET. PO (11:15)
[2018-01-19 11:17] LABS: AMPHETAMINE/METHAMPHETAMINE NEG (NEG); BARBITURATES NEG (NEG); BENZODIAZEPINES NEG (NEG); CANNABINOIDS POS (NEG); COCAINE NEG (NEG); ETHANOL, URINE NEG (NEG); METHADONE NEG (NEG); OPIATES NEG (NEG); PHENCYCLIDINE NEG (NEG)
[2018-01-19 11:22] LABS: BACTERIA,URINE 0 /HPF (0-FEW); RBC,URINE 0 /HPF (0-2)
[2018-01-19 11:23] LABS: SQUAMOUS EPITHELIAL CELL,UR FEW /LPF
[2018-01-19] MEDS: ENOXAPARIN 40 MG/0.4 ML SYRINGE. SQ ×2 (14:00→14:07)
[2018-01-19] MEDS: FAMOTIDINE 20 MG/2 ML VIAL IVP ×2 (14:07→21:22)
[2018-01-19] MEDS: ONDANSETRON PF 4 MG/2 ML VIAL. IV (14:10)
[2018-01-19] MEDS: KETOROLAC 30 MG/ML INJ. IV (16:37)
[2018-01-19] MEDS: MORPHINE SULFATE 4 MG/ML DISP.SYRIN. IV (17:57)
[2018-01-19] MEDS: oxyCODONE/APAP 7.5/325 1 TAB TABLET PO (21:23)
[2018-01-20] MEDS: IV NORMAL SALINE 1000ML BAG 1,000 ML IV ×3 (01:37→21:15)
[2018-01-20 05:22] LABS: ADD MAN DIFF? NO
[2018-01-20 05:30] LABS: BASO % 0 % (0-3); EOS % 0 % (0-3); HEMATOCRIT 40.1 % (36.0-47.0); HEMOGLOBIN 13.6 g/dL (12.0-15.5); LYMPH % 17 % (24-48); MEAN CORPUSCULAR HEMOGLOBIN 30 pg (25-35); MEAN CORPUSCULAR HGB CONC 34 g/dL (31-37); MEAN CORPUSCULAR VOLUME 88 fL (79-100); MONO # 0.9 x10^3/uL (0.0-1.1); MONO % 8 % (0-9); NEUT # 8.7 x10^3uL (1.8-7.7); NEUT % 75 % (31-73); PLATELET COUNT 183 x10^3/uL (140-400); RED BLOOD COUNT 4.54 x10^6/uL (3.50-5.40); RED CELL DISTRIBUTION WIDTH 13.6 % (11.5-14.5); WHITE BLOOD COUNT 11.7 x10^3/uL (4.0-11.0)
[2018-01-20 06:01] LABS: ALBUMIN 3.5 g/dL (3.4-5.0); ALBUMIN/GLOBULIN RATIO 1.1 (1.0-1.7); ALK PHOS 57 U/L (46-116); ALT (SGPT) 16 U/L (14-59); ANION GAP 10 (6-14); AST (SGOT) 11 U/L (15-37); BLOOD UREA NITROGEN 11 mg/dL (7-20); BUN/CREATININE RATIO 18 (6-20); CALCIUM 8.6 mg/dL (8.5-10.1); CARBON DIOXIDE 24 mmol/L (21-32); CHLORIDE 107 mmol/L (98-107); CREATININE 0.6 mg/dL (0.6-1.0); GFR 122.8; GLUCOSE 106 mg/dL (70-99); POTASSIUM 3.7 mmol/L (3.5-5.1); SODIUM 141 mmol/L (136-145); TOTAL BILIRUBIN 0.9 mg/dL (0.2-1.0); TOTAL PROTEIN 6.8 g/dL (6.4-8.2)
[2018-01-20] MEDS: ONDANSETRON PF 4 MG/2 ML VIAL. IV ×3 (08:16→20:50)
[2018-01-20] MEDS: FAMOTIDINE 20 MG/2 ML VIAL IVP ×2 (08:17→20:50)
[2018-01-20] MEDS: ENOXAPARIN 40 MG/0.4 ML SYRINGE. SQ (13:42)
[2018-01-20 14:06] LABS: SEDIMENTATION RATE 9 (0-25)
[2018-01-20] MEDS: oxyCODONE/APAP 7.5/325 1 TAB TABLET PO ×2 (14:33→20:51)
[2018-01-21] MEDS: IV NORMAL SALINE 1000ML BAG 1,000 ML IV ×2 (07:15→15:16)
[2018-01-21] MEDS: ONDANSETRON PF 4 MG/2 ML VIAL. IV ×2 (07:58→17:36)
[2018-01-21] MEDS: KETOROLAC 30 MG/ML INJ. IV ×2 (08:02→20:15)
[2018-01-21] MEDS: FAMOTIDINE 20 MG/2 ML VIAL IVP ×2 (09:53→20:15)
[2018-01-21] MEDS: diphenhydrAMINE 50 MG/ML VIAL IVP ×2 (12:19→20:20)
[2018-01-21] MEDS: MORPHINE SULFATE 10 MG/ML VIAL. IM ×2 (12:20→20:21)
[2018-01-21] MEDS: ENOXAPARIN 40 MG/0.4 ML SYRINGE. SQ (14:00)
[2018-01-21] MEDS: fentaNYL 12MCG/HR PATCH 1 PATCH PATCH.TD72 TD (15:11)
[2018-01-21] MEDS: oxyCODONE/APAP 7.5/325 1 TAB TABLET PO (20:14)
[2018-01-22] MEDS: IV NORMAL SALINE 1000ML BAG 1,000 ML IV ×3 (00:28→22:37)
[2018-01-22] MEDS: oxyCODONE/APAP 7.5/325 1 TAB TABLET PO ×2 (01:04→20:09)
[2018-01-22] MEDS: ONDANSETRON PF 4 MG/2 ML VIAL. IV ×3 (01:05→16:52)
[2018-01-22] MEDS: diphenhydrAMINE 50 MG/ML VIAL IVP ×2 (04:03→20:09)
[2018-01-22] MEDS: KETOROLAC 30 MG/ML INJ. IV (04:04)
[2018-01-22] MEDS: MORPHINE SULFATE 10 MG/ML VIAL. IM ×3 (04:04→17:00)
[2018-01-22] MEDS ORDERED: MORPHINE SULFATE 4 MG/ML DISP.SYRIN. IV (08:15)
[2018-01-22] MEDS ORDERED: oxyCODONE/APAP 5/325 1 TAB TABLET PO (08:15)
[2018-01-22] MEDS ORDERED: PROCHLORPERAZINE 10 MG/2 ML VIAL. IV (08:15)
[2018-01-22] MEDS: BARIUM SULFATE 60% 355 ML SUSP PO (08:25)
[2018-01-22] MEDS: SIMETHICONE/SOD BICARB/CITRIC ACID PACKET. PO (08:25)
[2018-01-22] MEDS: BARIUM SULFATE 340 GM SUSPENSION. PO (08:25)
[2018-01-22] MEDS: FAMOTIDINE 20 MG/2 ML VIAL IVP ×2 (11:19→20:08)
[2018-01-22] MEDS: ALPRAZolam 0.5 MG TABLET PO (17:12)
[2018-01-22] MEDS: ZOLPIDEM 5 MG TABLET. PO (20:09)
[2018-01-23] MEDS: oxyCODONE/APAP 7.5/325 1 TAB TABLET PO ×2 (02:20→08:50)
[2018-01-23] MEDS: ALPRAZolam 0.5 MG TABLET PO (02:25)
[2018-01-23] MEDS: BARIUM SULFATE 60% 355 ML SUSP PO (07:24)
[2018-01-23] MEDS: IV NORMAL SALINE 1000ML BAG 1,000 ML IV (08:34)
[2018-01-23] MEDS: FAMOTIDINE 20 MG/2 ML VIAL IVP (08:49)
[2018-01-23] MEDS: ONDANSETRON PF 4 MG/2 ML VIAL. IV (08:50)
[2018-01-23] MEDS: diphenhydrAMINE 50 MG/ML VIAL IVP (09:12)
[2018-01-23] MEDS: MORPHINE SULFATE 10 MG/ML VIAL. IM (12:39)
== END 2018-01-23 13:10 | disposition home or self-care (01) | DRG 103 ==
LOC: ER 08:40 → 5 NORTH 10:32
DX: G43.A0 Cyclical vomiting, in migraine, not intractable (principal); K31.84 Gastroparesis; R65.10 Systemic inflammatory response syndrome (SIRS) of non-infectious origin without acute organ dysfunction; F12.188 Cannabis abuse with other cannabis-induced disorder; F41.9 Anxiety disorder, unspecified; F32.9 Major depressive disorder, single episode, unspecified; J45.909 Unspecified asthma, uncomplicated; K21.9 Gastro-esophageal reflux disease without esophagitis; Z90.49 Acquired absence of other specified parts of digestive tract; Z91.018 Allergy to other foods; Z83.3 Family history of diabetes mellitus; Z82.49 Family history of ischemic heart disease and other diseases of the circulatory system
CPT/HCPCS: 36415; 74018; 74249; 80053; 80307; 81001; 81025; 84484; 85025; 85651; 93005; 96361; 96374; 96375; 99285; 99285-25; J1200; J1630; J1650; J1885; J2060; J2270; J2405; J2765; J7030; S0028

== ENCOUNTER 2018-03-01 17:06 | Emergency (ER) | payer BC | END 2018-03-01 18:10 | disposition home or self-care (01) | LOC: ER 17:06 | DX: K08.89 Other specified disorders of teeth and supporting structures (principal); F41.9 Anxiety disorder, unspecified; F12.10 Cannabis abuse, uncomplicated; Z90.49 Acquired absence of other specified parts of digestive tract; Z91.018 Allergy to other foods | CPT/HCPCS: 99283 ==

== ENCOUNTER 2018-05-08 21:09 | Emergency (ER) | payer SELFPAY ==
[2018-05-08 21:24] LABS: URINE HCG POC HCG NEGATIVE (Negative)
[2018-05-08 21:49] LABS: BILIRUBIN,URINE NEGATIVE (NEG); CLARITY,URINE TURBID; COLOR,URINE YELLOW; GLUCOSE,URINE NEGATIVE (NEG); NITRITE,URINE NEGATIVE (NEG); PROTEIN,URINE 30 mg/dL (NEG-TRACE); UROBILINOGEN,URINE 0.2 mg/dL (0.2 mg/dL)
[2018-05-08 21:55] LABS: BACTERIA,URINE MANY /HPF (0-FEW); RBC,URINE OCC /HPF (0-2); SQUAMOUS EPITHELIAL CELL,UR MANY /LPF
[2018-05-08 21:56] LABS: BARBITURATES NEG (NEG); BENZODIAZEPINES NEG (NEG); CANNABINOIDS POS (NEG); COCAINE NEG (NEG); METHADONE NEG (NEG); OPIATES NEG (NEG); PHENCYCLIDINE NEG (NEG)
[2018-05-08 21:58] LABS: ADD MAN DIFF? NO; AMPHETAMINE/METHAMPHETAMINE NEG (NEG); BASO # 0.1 x10^3/uL (0.0-0.2); BASO % 1 % (0-3); EOS # 0.1 x10^3/uL (0.0-0.7); EOS % 1 % (0-3); ETHANOL, URINE NEG (NEG); HEMATOCRIT 42.9 % (36.0-47.0); HEMOGLOBIN 14.9 g/dL (12.0-15.5); LYMPH % 26 % (24-48); MEAN CORPUSCULAR HEMOGLOBIN 31 pg (25-35); MEAN CORPUSCULAR HGB CONC 35 g/dL (31-37); MEAN CORPUSCULAR VOLUME 89 fL (79-100); MONO # 0.7 x10^3/uL (0.0-1.1); MONO % 6 % (0-9); NEUT % 67 % (31-73); PLATELET COUNT 285 x10^3/uL (140-400); RED BLOOD COUNT 4.82 x10^6/uL (3.50-5.40); RED CELL DISTRIBUTION WIDTH 13.8 % (11.5-14.5); WHITE BLOOD COUNT 11.9 x10^3/uL (4.0-11.0)
[2018-05-08] MEDS: ONDANSETRON PF 4 MG/2 ML VIAL. IV ×2 (22:04→22:42)
[2018-05-08] MEDS: FAMOTIDINE 20 MG/2 ML VIAL IVP (22:04)
[2018-05-08] MEDS: IV NORMAL SALINE 1000ML BAG 1,000 ML IV (22:04)
[2018-05-08] MEDS: ZIPRASIDONE IM 20 MG VIAL. IM (22:05)
[2018-05-08 22:06] LABS: ANION GAP 13 (6-14); BLOOD UREA NITROGEN 11 mg/dL (7-20); BUN/CREATININE RATIO 12 (6-20); CALCIUM 9.4 mg/dL (8.5-10.1); CARBON DIOXIDE 25 mmol/L (21-32); CHLORIDE 102 mmol/L (98-107); CREATININE 0.9 mg/dL (0.6-1.0); GFR 76.3; GLUCOSE 144 mg/dL (70-99); POTASSIUM 3.5 mmol/L (3.5-5.1); SODIUM 140 mmol/L (136-145)
[2018-05-08 22:12] LABS: ALBUMIN 4.4 g/dL (3.4-5.0); ALBUMIN/GLOBULIN RATIO 1.1 (1.0-1.7); ALK PHOS 75 U/L (46-116); ALT (SGPT) 23 U/L (14-59); AST (SGOT) 19 U/L (15-37); LIPASE 117 U/L (73-393); MAGNESIUM 1.8 mg/dL (1.8-2.4); TOTAL BILIRUBIN 0.5 mg/dL (0.2-1.0); TOTAL PROTEIN 8.5 g/dL (6.4-8.2)
[2018-05-08] MEDS: HALOPERIDOL LACTATE 5 MG/ML VIAL. IVP (22:42)
[2018-05-08] MEDS: PROMETHAZINE IM 25 MG/ML VIAL IM (23:32)
[2018-05-08] MEDS: KETOROLAC 30 MG/ML INJ. IV (23:32)
[2018-05-08] MEDS: diphenhydrAMINE 50 MG/ML VIAL IVP (23:32)
[2018-05-09] MEDS: LORazepam 1 MG TABLET PO (00:29)
== END 2018-05-09 00:30 | disposition home or self-care (01) ==
LOC: ER 05-09 00:30
DX: G43.A0 Cyclical vomiting, in migraine, not intractable (principal); F12.10 Cannabis abuse, uncomplicated; R10.9 Unspecified abdominal pain; F41.9 Anxiety disorder, unspecified; Z90.49 Acquired absence of other specified parts of digestive tract; Z91.018 Allergy to other foods
CPT/HCPCS: 36415; 80053; 80307; 81001; 81025; 83690; 83735; 85025; 87086; 96361; 96372; 96374; 96375; 96376; 99285-25; J1200; J1630; J1885; J2405; J2550; J3486; J7030; S0028

== ENCOUNTER 2018-05-14 08:09 | Emergency (ER) | payer BC ==
[2018-05-14 08:25] LABS: ADD MAN DIFF? NO
[2018-05-14 08:29] LABS: BASO # 0.1 x10^3/uL (0.0-0.2); BASO % 1 % (0-3); EOS # 0.1 x10^3/uL (0.0-0.7); EOS % 2 % (0-3); HEMATOCRIT 41.5 % (36.0-47.0); HEMOGLOBIN 14.8 g/dL (12.0-15.5); LYMPH # 2.4 x10^3/uL (1.0-4.8); LYMPH % 30 % (24-48); MEAN CORPUSCULAR HEMOGLOBIN 32 pg (25-35); MEAN CORPUSCULAR HGB CONC 36 g/dL (31-37); MEAN CORPUSCULAR VOLUME 89 fL (79-100); MONO # 0.5 x10^3/uL (0.0-1.1); MONO % 6 % (0-9); NEUT # 4.9 x10^3uL (1.8-7.7); NEUT % 62 % (31-73); PLATELET COUNT 246 x10^3/uL (140-400); RED BLOOD COUNT 4.68 x10^6/uL (3.50-5.40); RED CELL DISTRIBUTION WIDTH 13.5 % (11.5-14.5); WHITE BLOOD COUNT 7.9 x10^3/uL (4.0-11.0)
[2018-05-14] MEDS: IV NORMAL SALINE 1000ML BAG 1,000 ML IV ×2 (08:30→10:41)
[2018-05-14] MEDS: HALOPERIDOL LACTATE 5 MG/ML VIAL. IVP (08:31)
[2018-05-14 08:41] LABS: ANION GAP 10 (6-14); BLOOD UREA NITROGEN 9 mg/dL (7-20); BUN/CREATININE RATIO 11 (6-20); CALCIUM 8.9 mg/dL (8.5-10.1); CARBON DIOXIDE 26 mmol/L (21-32); CHLORIDE 104 mmol/L (98-107); CREATININE 0.8 mg/dL (0.6-1.0); GFR 87.4; GLUCOSE 108 mg/dL (70-99); SODIUM 140 mmol/L (136-145)
[2018-05-14 08:47] LABS: ALBUMIN 3.8 g/dL (3.4-5.0); ALK PHOS 74 U/L (46-116); ALT (SGPT) 21 U/L (14-59); AST (SGOT) 16 U/L (15-37); TOTAL BILIRUBIN 0.3 mg/dL (0.2-1.0); TOTAL PROTEIN 7.7 g/dL (6.4-8.2)
[2018-05-14] MEDS: diphenhydrAMINE 50 MG/ML VIAL IVP (10:15)
[2018-05-14] MEDS: ONDANSETRON PF 4 MG/2 ML VIAL. IV (10:15)
[2018-05-14] MEDS: METOCLOPRAMIDE HCL 10 MG/2 ML VIAL. IV (10:42)
[2018-05-14 12:27] LABS: URINE HCG POC HCG NEGATIVE (Negative)
[2018-05-14 12:29] LABS: BILIRUBIN,URINE NEGATIVE (NEG); CLARITY,URINE CLEAR; COLOR,URINE YELLOW; GLUCOSE,URINE NEGATIVE (NEG); NITRITE,URINE NEGATIVE (NEG); PROTEIN,URINE NEGATIVE (NEG-TRACE); UROBILINOGEN,URINE 0.2 mg/dL (0.2 mg/dL)
[2018-05-14 12:33] LABS: BARBITURATES NEG (NEG); BENZODIAZEPINES NEG (NEG); CANNABINOIDS POS (NEG); COCAINE NEG (NEG); METHADONE NEG (NEG); OPIATES NEG (NEG); PHENCYCLIDINE NEG (NEG)
[2018-05-14 12:53] LABS: BACTERIA,URINE 0 /HPF (0-FEW); RBC,URINE 0 /HPF (0-2); SQUAMOUS EPITHELIAL CELL,UR FEW /LPF; WBC,URINE 0 /HPF (0-4)
[2018-05-14 12:55] LABS: AMPHETAMINE/METHAMPHETAMINE NEG (NEG); ETHANOL, URINE NEG (NEG)
== END 2018-05-14 13:25 | disposition home or self-care (01) ==
LOC: ER 13:25
DX: R11.2 Nausea with vomiting, unspecified (principal); G43.A0 Cyclical vomiting, in migraine, not intractable; F12.10 Cannabis abuse, uncomplicated; Z91.018 Allergy to other foods
CPT/HCPCS: 36415; 80053; 80307; 81001; 81025; 85025; 96361; 96374; 96375; 99285-25; J1200; J1630; J2060; J2405; J2765; J7030

== ENCOUNTER 2018-06-02 05:26 | Emergency (ER) | payer BC ==
[~2018-06-02] VITALS: Ht 162.6 cm; Wt 61.2 kg
[~2018-06-02 05:26] MED LIST changes: +AMIT25TA PO; +AMOX500C PO; +CEPH500T PO; +FENT1PAT90 TD; +IBUP-1060 PO; +LORA0.5T96 PO; +OXYC1TAB7 PO; +PANT20TA2 PO; +Pantoprazole PO
--- NOTE | 2018-06-02 05:47 | PHYS DOC ---
Past Medical History Past Medical History: Cyclic Vomiting Additional Past Medical Histor: cyclic vomiting syndrome, PANIC ATTACKS Past Surgical History: Cholecystectomy Alcohol Use: Occasionally Drug Use: Marijuana Adult General Chief Complaint Chief Complaint: NAUSEA/VOMITING/DIARRHA HPI HPI Patient is a 23-year-old female with a past history of cyclic vomiting syndrome in the setting of chronic ongoing marijuana use (she states that she last smoked a week ago), who presents to the emergency department for evaluation of epigastric /central abdominal discomfort, similar to her prior episodes of cyclic vomiting syndrome. She has not had any bloody emesis but has had multiple episodes of recurrent emesis throughout the day. She has not had any diarrhea. She has not had any fevers or chills. There are no alleviating or exacerbating factors to her symptoms. Review of Systems Review of Systems Constitutional: Denies fever or chills [] Eyes: Denies change in visual acuity, redness, or eye pain [] HENT: Denies nasal congestion or sore throat [] Respiratory: Denies cough or shortness of breath [] Cardiovascular: The patient denies any shortness of breath, chest pain, palpitations, or orthopnea[] GI: Denies bloody emesis, bloody stools or diarrhea [] : Denies dysuria or hematuria [] Musculoskeletal: Denies back pain or joint pain [] Integument: Denies rash or skin lesions [] Neurologic: Denies headache, focal weakness or sensory changes [] Endocrine: Denies polyuria or polydipsia [] All other systems were reviewed and found to be within normal limits, except as documented in this note. Current Medications Current Medications Current Medications Medications (Trade) Dose Ordered Sig/Arnaldo Start Time Stop Time Status Last Admin Dose Admin Capsaicin (Zostrix) 1 sami 1X ONCE 06/02/18 06:30 06/02/18 06:31 DC 06/02/18 06:06 1 SAMI Haloperidol Lactate (Haldol Inj) 5 mg 1X ONCE 06/02/18 06:00 06/02/18 06:01 DC 06/02/18 06:05 5 MG Lorazepam (Ativan) 2 mg 1X ONCE 06/02/18 06:00 06/02/18 06:01 DC 06/02/18 06:05 2 MG Ondansetron HCl (Zofran) 4 mg 1X ONCE 06/02/18 06:00 06/02/18 06:01 DC 06/02/18 06:06 4 MG Sodium Chloride 1,000 ml @ 1,000 mls/hr Q1H 06/02/18 06:00 06/02/18 06:59 DC 06/02/18 06:00 1,000 MLS/HR Allergies Allergies Allergies Coded Allergies Type Severity Reaction Last Updated Verified coconut Allergy Severe Anaphylaxis 01/22/17 Yes Physical Exam Physical Exam PHYSICAL EXAM: CONSTITUTIONAL: Well developed, well nourished, HEAD: normocephalic, atraumatic EENT: PERRL, EOMI. Conjunctivae normal color, sclerae non-icteric; moist mucous membranes. NECK: Supple, non-tender; no meningismus. LUNGS: Lungs CTA, the patient is hyperventilating. Normal air movement. HEART: Regular rate and rhythm, no murmur CHEST: No deformity; non-tender ABDOMEN: The abdomen is soft, is mild diffuse tenderness to palpation of the abdomen most prominent in the epigastric and periumbilical area, without any focal right lower quadrant tenderness to palpation, without rebound or guarding. Bowel sounds are present, no masses or bruits. EXTREM: Normal ROM; no deformity, no calf tenderness. Normal pulses palpable in all extremities. There is no pedal edema. SKIN: No rash; no diaphoresis NEURO: Alert; normal speech and cognition; CN's grossly intact; strength grossly intact without focal deficit. BACK: No CVA TTP. PSYCHIATRIC: The patient exhibits a significantly anxious affect. Current Patient Data Vital Signs Vital Signs Date Time Temp Pulse Resp B/P (MAP) Pulse Ox O2 Delivery O2 Flow Rate FiO2 06/02/18 07:22 88 20 119/73 (88) 97 Room Air 06/02/18 05:37 97.4 97.4 Lab Values Laboratory Tests Test 06/02/18 05:34 06/02/18 06:00 06/02/18 06:36 Urine Collection Type Unknown Urine Color Quin Urine Clarity Cloudy Urine pH 5.5 Urine Specific [place] >=1.030 Urine Protein 30 mg/dL (NEG-TRACE) Urine Glucose (UA) Negative mg/dL (NEG) Urine Ketones (Stick) 15 mg/dL (NEG) Urine Blood Negative (NEG) Urine Nitrite Negative (NEG) Urine Bilirubin Negative (NEG) Urine Urobilinogen Dipstick 0.2 mg/dL (0.2 mg/dL) Urine Leukocyte Esterase Trace (NEG) Urine RBC 0 /HPF (0-2) Urine WBC 1-4 /HPF (0-4) Urine Squamous Epithelial Cells Many /LPF Urine Bacteria 0 /HPF (0-FEW) Urine Opiates Screen Neg (NEG) Urine Methadone Screen Neg (NEG) Urine Barbiturates Neg (NEG) Urine Phencyclidine Screen Neg (NEG) Urine Amphetamine/Methamphetamine Neg (NEG) Urine Benzodiazepines Screen Neg (NEG) Urine Cocaine Screen Neg (NEG) Urine Cannabinoids Screen Pos (NEG) Urine Ethyl Alcohol Neg (NEG) White Blood Count 12.5 x10^3/uL (4.0-11.0) H Red Blood Count 4.94 x10^6/uL (3.50-5.40) Hemoglobin 15.4 g/dL (12.0-15.5) Hematocrit 43.5 % (36.0-47.0) Mean Corpuscular Volume 88 fL (79-100) Mean Corpuscular Hemoglobin 31 pg (25-35) Mean Corpuscular Hemoglobin Concent 35 g/dL (31-37) Red Cell Distribution Width 13.4 % (11.5-14.5) Platelet Count 222 x10^3/uL (140-400) Neutrophils (%) (Auto) 74 % (31-73) H Lymphocytes (%) (Auto) 21 % (24-48) L Monocytes (%) (Auto) 5 % (0-9) Eosinophils (%) (Auto) 0 % (0-3) Basophils (%) (Auto) 0 % (0-3) Neutrophils # (Auto) 9.3 x10^3uL (1.8-7.7) H Lymphocytes # (Auto) 2.6 x10^3/uL (1.0-4.8) Monocytes # (Auto) 0.6 x10^3/uL (0.0-1.1) Eosinophils # (Auto) 0.0 x10^3/uL (0.0-0.7) Basophils # (Auto) 0.0 x10^3/uL (0.0-0.2) Sodium Level 137 mmol/L (136-145) Potassium Level 3.6 mmol/L (3.5-5.1) Chloride Level 102 mmol/L (98-107) Carbon Dioxide Level 20 mmol/L (21-32) L Anion Gap 15 (6-14) H Blood Urea Nitrogen 10 mg/dL (7-20) Creatinine 0.8 mg/dL (0.6-1.0) Estimated GFR (Cockcroft-Gault) 87.4 BUN/Creatinine Ratio 13 (6-20) Glucose Level 170 mg/dL (70-99) H Calcium Level 9.6 mg/dL (8.5-10.1) Total Bilirubin 1.0 mg/dL (0.2-1.0) Aspartate Amino Transferase (AST) 24 U/L (15-37) Alanine Aminotransferase (ALT) 24 U/L (14-59) Alkaline Phosphatase 76 U/L (46-116) Total Protein 8.1 g/dL (6.4-8.2) Albumin 4.7 g/dL (3.4-5.0) Albumin/Globulin Ratio 1.4 (1.0-1.7) Lipase 122 U/L (73-393) Urine Test Negative (NEG) Laboratory Tests 06/02/18 06:00 Laboratory Tests 06/02/18 06:00 EKG EKG [] Radiology/Procedures Radiology/Procedures [] Course & Med Decision Making Course & Med Decision Making 6:00 AM: Care was turned over to Dr. Obrien at shift change, pending labs and final disposition. The patient's recent ER visits and hospital notes have been reviewed. 0718: Transfer of care from Dr. Hurley approximately 6 AM this morning. At time of repeat evaluation patient was found to be asleep. I will call up and repeated my exam. Patient with soft, nontender abdomen. Will attempt PO challenge with plans for d/c 0745: Patient tolerating fluids without difficulty. On repeat examination patient is again asleep. She is in no distress. She denies any abdominal pain at this time. Her abdomen remained soft and benign as above. She was given IV fluids while in the ER. She was advised to continue oral hydration with fluids at home. ER return precautions given. Patient verbalized understanding. All questions answered. Dragon Disclaimer Dragon Disclaimer This electronic medical record was generated, in whole or in part, using a voice recognition dictation system. Departure Departure Impression: Primary Impression: Cyclic vomiting syndrome Disposition: HOME, SELF-CARE Condition: IMPROVED Referrals: NO PCP (PCP) Patient Instructions: Cyclic Vomiting Syndrome Additional Instructions: Thank you for coming to [facility]. Please repeat the attached handouts. Please establish care with a primary care physician. Return to the ER if your symptoms worsen or you have any other concerns. Please stop smoking marijuana. Drink plenty of fluids over the next 24-48 hours. MATILDE HURLEY MD Jun 02, 2018 05:47 ISIDRA OBRIEN DO Jun 02, 2018 07:21
[2018-06-02 05:56] LABS: BILIRUBIN,URINE NEGATIVE (NEG); CLARITY,URINE CLOUDY; COLOR,URINE AMBER; NITRITE,URINE NEGATIVE (NEG); PH,URINE 5.5; PROTEIN,URINE 30 mg/dL (NEG-TRACE); UROBILINOGEN,URINE 0.2 mg/dL (0.2 mg/dL)
[2018-06-02] MEDS ORDERED: HALOPERIDOL LACTATE 5 MG/ML VIAL. IVP ONE (06:00)
[2018-06-02] MEDS ORDERED: IV NORMAL SALINE 1000ML BAG 1,000 ML IV SCH (06:00)
[2018-06-02] MEDS ORDERED: ONDANSETRON PF 4 MG/2 ML VIAL. IV ONE (06:00)
[2018-06-02 06:03] LABS: BARBITURATES NEG (NEG); BENZODIAZEPINES NEG (NEG); CANNABINOIDS POS (NEG); COCAINE NEG (NEG); METHADONE NEG (NEG); OPIATES NEG (NEG); PHENCYCLIDINE NEG (NEG)
[2018-06-02 06:04] LABS: AMPHETAMINE/METHAMPHETAMINE NEG (NEG)
[2018-06-02 06:23] LABS: CALCIUM 9.6 mg/dL (8.5-10.1); CREATININE 0.8 mg/dL (0.6-1.0); GFR 87.4; POTASSIUM 3.6 mmol/L (3.5-5.1)
[2018-06-02 06:28] LABS: ALBUMIN 4.7 g/dL (3.4-5.0); ALBUMIN/GLOBULIN RATIO 1.4 (1.0-1.7); TOTAL PROTEIN 8.1 g/dL (6.4-8.2)
[2018-06-02] MEDS ORDERED: CAPSAICIN 0.025% TOPICAL CREAM 60GM TUBE. TP ONE (06:30)
[2018-06-02 06:40] LABS: BASO % 0 % (0-3); EOS % 0 % (0-3); HEMATOCRIT 43.5 % (36.0-47.0); HEMOGLOBIN 15.4 g/dL (12.0-15.5); LYMPH # 2.6 x10^3/uL (1.0-4.8); LYMPH % 21 % (24-48); MEAN CORPUSCULAR HEMOGLOBIN 31 pg (25-35); MEAN CORPUSCULAR HGB CONC 35 g/dL (31-37); MEAN CORPUSCULAR VOLUME 88 fL (79-100); MONO # 0.6 x10^3/uL (0.0-1.1); MONO % 5 % (0-9); NEUT # 9.3 x10^3uL (1.8-7.7); NEUT % 74 % (31-73); PLATELET COUNT 222 x10^3/uL (140-400); RED BLOOD COUNT 4.94 x10^6/uL (3.50-5.40); RED CELL DISTRIBUTION WIDTH 13.4 % (11.5-14.5); WHITE BLOOD COUNT 12.5 x10^3/uL (4.0-11.0)
[2018-06-02 06:44] LABS: BACTERIA,URINE 0 /HPF (0-FEW); RBC,URINE 0 /HPF (0-2); SQUAMOUS EPITHELIAL CELL,UR MANY /LPF
[2018-06-02 06:52] LABS: U PREG PATIENT NEGATIVE (NEG)
[2018-06-02 07:22] VITALS: BP 119/73
== END 2018-06-02 07:50 | disposition home or self-care (01) ==
LOC: ER 05:26
DX: K31.89 Other diseases of stomach and duodenum (principal); R11.10 Vomiting, unspecified; F12.10 Cannabis abuse, uncomplicated; Z91.018 Allergy to other foods; Z90.49 Acquired absence of other specified parts of digestive tract
CPT/HCPCS: 36415; 80053; 80307; 81001; 81025; 83690; 85025; 96361; 96374; 96375; 99284; J1630; J2060; J2405; J7030; G0479

== ENCOUNTER 2018-06-06 09:00 | Inpatient (IN) | payer BC ==
[~2018-06-06] VITALS: Ht 162.6 cm; Wt 72.2 kg
[2018-06-06] MEDS ORDERED: IV NORMAL SALINE 1000ML BAG 1,000 ML IV ONE ×3 (09:15→12:00)
--- NOTE | 2018-06-06 09:16 | PHYS DOC ---
Past Medical History Past Medical History: Cyclic Vomiting Additional Past Medical Histor: cyclic vomiting syndrome, PANIC ATTACKS Past Surgical History: Cholecystectomy Alcohol Use: Occasionally Drug Use: Marijuana Adult General HPI HPI Patient is a 23 year old female who presents with cyclic vomiting. Patient began vomiting after midnight last night and states she is had too numerous episodes to count. She has a history of cyclic vomiting. She comes to this emergency department very frequently. She was last here 4 days earlier. Labs are normal at that time. Her labs are generally normal. Patient is requesting Ativan, morphine, Reglan for relief of her symptoms. Patient states she does not have a primary care doctor. She does not know why she has this diagnosis. No fever or chills. Review of Systems Review of Systems Constitutional: Denies fever or chills Eyes: Denies change in visual acuity HENT: Denies nasal congestion Respiratory: Denies cough or shortness of breath Cardiovascular: No additional information not addressed in HPI GI: as documented above : Denies dysuria or hematuria Musculoskeletal: Denies back pain Integument: Denies rash or skin lesions Neurologic: Denies headache Endocrine: Denies polyuria All other systems were reviewed and found to be within normal limits, except as documented in this note. Current Medications Current Medications Current Medications Medications (Trade) Dose Ordered Sig/Arnaldo Start Time Stop Time Status Last Admin Dose Admin Diphenhydramine HCl (Benadryl) 25 mg 1X ONCE 06/06/18 12:00 06/06/18 12:01 DC 06/06/18 12:53 25 MG Haloperidol Lactate (Haldol Inj) 5 mg 1X ONCE 06/06/18 10:15 06/06/18 10:16 DC 06/06/18 09:58 5 MG Lorazepam (Ativan) 2 mg 1X ONCE 06/06/18 10:30 06/06/18 10:31 DC 06/06/18 10:06 2 MG Prochlorperazine Edisylate (Compazine) 10 mg 1X ONCE 06/06/18 12:00 06/06/18 12:01 DC 06/06/18 12:53 10 MG Sodium Chloride 1,000 ml @ 1,000 mls/hr 1X ONCE 06/06/18 12:00 06/06/18 12:59 DC 06/06/18 12:23 1,000 MLS/HR Allergies Allergies Allergies Coded Allergies Type Severity Reaction Last Updated Verified coconut Allergy Severe Anaphylaxis 01/22/17 Yes Physical Exam Physical Exam Constitutional: Well developed, well nourished, female, holding emesis basin HENT: Normocephalic, atraumatic, bilateral external ears normal, oropharynx moist Eyes: EOMI Neck: Normal range of motion Cardiovascular:Heart rate regular rhythm, no murmur Lungs & Thorax: Bilateral breath sounds clear to auscultation Abdomen: Bowel sounds normal, soft, no tenderness Skin: Warm, dry, no erythema Extremities: No edema Neurologic: Alert and oriented X 3 Psychologic: Affect normal Current Patient Data Vital Signs Vital Signs Date Time Temp Pulse Resp B/P (MAP) Pulse Ox O2 Delivery O2 Flow Rate FiO2 06/06/18 12:34 140 21 135/82 (99) 97 Room Air 06/06/18 09:00 98.2 98.2 Lab Values Laboratory Tests Test 06/06/18 09:15 06/06/18 11:50 POC Urine HCG, Qualitative Hcg negative (Negative) White Blood Count 10.6 x10^3/uL (4.0-11.0) Red Blood Count 4.68 x10^6/uL (3.50-5.40) Hemoglobin 14.4 g/dL (12.0-15.5) Hematocrit 42.0 % (36.0-47.0) Mean Corpuscular Volume 90 fL (79-100) Mean Corpuscular Hemoglobin 31 pg (25-35) Mean Corpuscular Hemoglobin Concent 34 g/dL (31-37) Red Cell Distribution Width 13.1 % (11.5-14.5) Platelet Count 161 x10^3/uL (140-400) Neutrophils (%) (Auto) 88 % (31-73) H Lymphocytes (%) (Auto) 8 % (24-48) L Monocytes (%) (Auto) 4 % (0-9) Eosinophils (%) (Auto) 0 % (0-3) Basophils (%) (Auto) 0 % (0-3) Neutrophils # (Auto) 9.3 x10^3uL (1.8-7.7) H Lymphocytes # (Auto) 0.9 x10^3/uL (1.0-4.8) L Monocytes # (Auto) 0.4 x10^3/uL (0.0-1.1) Eosinophils # (Auto) 0.0 x10^3/uL (0.0-0.7) Basophils # (Auto) 0.0 x10^3/uL (0.0-0.2) Platelet Estimate Pending Sodium Level 140 mmol/L (136-145) Potassium Level 3.7 mmol/L (3.5-5.1) Chloride Level 106 mmol/L (98-107) Carbon Dioxide Level 23 mmol/L (21-32) Anion Gap 11 (6-14) Blood Urea Nitrogen 8 mg/dL (7-20) Creatinine 0.7 mg/dL (0.6-1.0) Estimated GFR (Cockcroft-Gault) 102.0 Glucose Level 118 mg/dL (70-99) H Calcium Level 8.5 mg/dL (8.5-10.1) Total Bilirubin 0.6 mg/dL (0.2-1.0) Direct Bilirubin 0.1 mg/dL (0.0-0.2) Aspartate Amino Transferase (AST) 11 U/L (15-37) L Alanine Aminotransferase (ALT) 18 U/L (14-59) Alkaline Phosphatase 64 U/L (46-116) Total Protein 7.6 g/dL (6.4-8.2) Albumin 4.1 g/dL (3.4-5.0) Lipase 100 U/L (73-393) Laboratory Tests 06/06/18 11:50 Laboratory Tests 06/06/18 11:50 EKG EKG Sinus Tachy Interpretation Time: 13:35 Radiology/Procedures Radiology/Procedures [] Impressions: Tachycardia Cyclic vomiting Course & Med Decision Making Course & Med Decision Making Pertinent Labs and Imaging studies reviewed. (See chart for details) 09:15: Patient is seen and examined. She is here with a very typical presentation. She has no new or acute complaints. She is actively vomiting. 10:30: Patient sleeping. s/p 4 total mg's of ativan and 5 mg of haldol. HR 120's. IVF's running. 14:00: Patient was observed in the emergency department for several hours. Since 10:30 this morning, the patient has received no additional medications. She has been sleeping the entire time. She has had no additional episodes of emesis. The patient however was noted to have persistent tachycardia. She received 2 L of normal saline in the ER and this did not improve. Her heart rate is sinus in origin. It ranges from 120 up to 160 at times. Patient denies illicit drug use other than marijuana. She states her heart rate is not normally elevated. I did reassess the patient and she continues to request pain medications. I informed the patient directly that opiate pain medications were not an acceptable treatment for her complaint of cyclic vomiting. In the emergency department, she was only given Haldol and Ativan. She was also given a dose of Compazine with Benadryl. I discussed this patient for admission with Dr. rey who will admit the patient, given her tachycardia. Basic labs were completed and there were no acute findings. Urine drug screen is pending. Dragon Disclaimer Dragon Disclaimer This electronic medical record was generated, in whole or in part, using a voice recognition dictation system. Departure Departure Referrals: NO PCP (PCP) ZEINAB PARKS DO Jun 06, 2018 09:16
[2018-06-06] MEDS ORDERED: HALOPERIDOL LACTATE 5 MG/ML VIAL. IVP ONE (10:15)
[2018-06-06] MEDS ORDERED: diphenhydrAMINE 50 MG/ML VIAL IVP ONE (12:00)
[2018-06-06] MEDS ORDERED: PROCHLORPERAZINE 10 MG/2 ML VIAL. IV ONE (12:00)
[2018-06-06 12:37] LABS: BASO % 0 % (0-3); EOS % 0 % (0-3); HEMOGLOBIN 14.4 g/dL (12.0-15.5); LYMPH # 0.9 x10^3/uL (1.0-4.8); LYMPH % 8 % (24-48); MEAN CORPUSCULAR HEMOGLOBIN 31 pg (25-35); MEAN CORPUSCULAR HGB CONC 34 g/dL (31-37); MEAN CORPUSCULAR VOLUME 90 fL (79-100); MONO # 0.4 x10^3/uL (0.0-1.1); MONO % 4 % (0-9); NEUT # 9.3 x10^3uL (1.8-7.7); NEUT % 88 % (31-73); PLATELET COUNT 161 x10^3/uL (140-400); RED BLOOD COUNT 4.68 x10^6/uL (3.50-5.40); RED CELL DISTRIBUTION WIDTH 13.1 % (11.5-14.5); WHITE BLOOD COUNT 10.6 x10^3/uL (4.0-11.0)
[2018-06-06 12:45] LABS: CALCIUM 8.5 mg/dL (8.5-10.1); CREATININE 0.7 mg/dL (0.6-1.0); POTASSIUM 3.7 mmol/L (3.5-5.1)
[2018-06-06 12:51] LABS: ALBUMIN 4.1 g/dL (3.4-5.0); DIRECT BILIRUBIN 0.1 mg/dL (0.0-0.2); TOTAL BILIRUBIN 0.6 mg/dL (0.2-1.0); TOTAL PROTEIN 7.6 g/dL (6.4-8.2)
--- NOTE | 2018-06-06 14:12 | EKG ---
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
[2018-06-06 14:22] LABS: % BANDS 9 % (0-9); % BASOS 1 % (0-3); % LYMPHS 9 % (24-48); % MONOS 5 % (0-10); % SEGS 76 % (35-66); PLT ESTIMATE ADEQUATE (ADEQUATE)
[2018-06-06 14:40] LABS: AMPHETAMINE/METHAMPHETAMINE NEG (NEG); BARBITURATES NEG (NEG); BENZODIAZEPINES NEG (NEG); CANNABINOIDS POS (NEG); COCAINE NEG (NEG); METHADONE NEG (NEG); OPIATES NEG (NEG); PHENCYCLIDINE NEG (NEG)
[2018-06-06] MEDS ORDERED: HALOPERIDOL LACTATE 5 MG/ML VIAL. IVP PRN (15:30)
[2018-06-06] MEDS ORDERED: diphenhydrAMINE 50 MG/ML VIAL IVP PRN (15:30)
--- NOTE | 2018-06-06 16:20 | PDOC1 ---
History and Physical Date of Admission Date of Admission DATE: 06/06/18 TIME: 16:15 Source Source: Chart review, Patient History of Present Illness History of Present Illness Bradley is a 23 year old female who presents with acute abd pain and nausea and vomiting. . Patient began vomiting after midnight last night and states she is had too numerous episodes to count. She has a history of cyclic vomiting, has mult admits for same, > 12 admits last year,. and comes to this emergency department very frequently, they can usually send her home, but HR > 120 despite fluid bolus. Patient is requesting Ativan, morphine, Reglan for relief of her symptoms. she reportedly wasn;t on the Med floor more than 90 seconds before she was in the shower, IV not covered. then sleeping hard. I have lectured her hard on THC abstinence, she has not listened Past Medical History Cardiovascular: No pertinent hx Pulmonary: No pertinent hx GI: Other Heme/Onc: No pertinent hx Psych: Anxiety, Panic Rheumatologic: No pertinent hx Endocrine: No pertinent hx, Other Past Surgical History Past Surgical History: Cholecystectomy Family History Family History: Diabetes, Heart Disease, Other Family History: Grandparents Social History Drugs: Marijuana Current Medications Current Medications Current Medications Sodium Chloride 1,000 ml @ 1,000 mls/hr 1X ONCE IV Last administered on at 09:37; Start 06/06/18 at 09:15; Stop 06/06/18 at 10:14; Status DC Lorazepam (Ativan) 2 mg 1X ONCE IV Last administered on 06/06/18at 09:38; Start 06/06/18 at 09:45; Stop 06/06/18 at 09:46; Status DC Haloperidol Lactate (Haldol Inj) 5 mg 1X ONCE IVP Last administered on at 09:58; Start 06/06/18 at 10:15; Stop 06/06/18 at 10:16; Status DC Lorazepam (Ativan) 2 mg 1X ONCE IV Last administered on 06/06/18at 10:06; Start 06/06/18 at 10:30; Stop 06/06/18 at 10:31; Status DC Sodium Chloride 1,000 ml @ 1,000 mls/hr 1X ONCE IV Last administered on at 11:03; Start 06/06/18 at 11:00; Stop 06/06/18 at 11:59; Status DC Prochlorperazine Edisylate (Compazine) 10 mg 1X ONCE IV Last administered on at 12:53; Start 06/06/18 at 12:00; Stop 06/06/18 at 12:01; Status DC Diphenhydramine HCl (Benadryl) 25 mg 1X ONCE IVP Last administered on at 12:53; Start 06/06/18 at 12:00; Stop 06/06/18 at 12:01; Status DC Sodium Chloride 1,000 ml @ 1,000 mls/hr 1X ONCE IV Last administered on at 12:23; Start 06/06/18 at 12:00; Stop 06/06/18 at 12:59; Status DC Ondansetron HCl (Zofran) 4 mg PRN Q8HRS PRN IV NAUSEA/VOMITING; Start 06/06/18 at 15:00; Stop 06/07/18 at 14:59 Sodium Chloride 1,000 ml @ 100 mls/hr Q10H IV ; Start 06/06/18 at 14:59; Stop 06/07/18 at 14:58 Lorazepam (Ativan) 2 mg PRN Q4HRS PRN IV ANXIETY/AGITATION 1ST CHOICE; Start at 15:30 Haloperidol Lactate (Haldol Inj) 5 mg PRN Q6HRS PRN IVP AGITATION 2ND CHOICE; Start 06/06/18 at 15:30 Diphenhydramine HCl (Benadryl) 25 mg PRN Q6HRS PRN IVP ITCHING; Start 06/06/18 at 15:30 Active Scripts Active Zofran Odt (Ondansetron) 4 Mg Tab.rapdis 1 Tab SL Q8HRS Protonix (Pantoprazole Sodium) 20 Mg Tablet.dr 2 Tab PO DAILY Ativan (Lorazepam) 0.5 Mg Tablet 0.5 Mg PO TID PRN Amitriptyline Hcl 50 Mg Tablet 1 Tab PO QHS Oxycodone-Acetaminophen 5-325 (Oxycodone Hcl/Acetaminophen) 1 Each Tablet 1 Tab PO PRN Q6HRS PRN [Pantoprazole] 40 MG Tablet.dr 40 Mg PO DAILYAC 30 Days Zofran Odt (Ondansetron) 4 Mg Tab.rapdis 1 Tab SL PRN Q8HRS PRN Ibuprofen 800 Mg Tablet 800 Mg PO PRN Q6HRS PRN Amoxicillin 500 Mg Capsule 2 Cap PO BID Zofran Odt (Ondansetron) 4 Mg Tab.rapdis 1 Tab SL Q8HRS PRN Compazine (Prochlorperazine Maleate) 10 Mg Tablet 10 Mg PO Q8HRS PRN Oxycodone Hcl 5 Mg Capsule 1 Cap PO TID PRN Amitriptyline Hcl 50 Mg Tablet 1 Tab PO QHS Zofran Odt (Ondansetron) 4 Mg Tab.rapdis 8 Mg PO BID PRN Reported DURAGESIC 25mcg/hr (Fentanyl) 1 Each Patch.td72 1 Patch TD Q72H Allergies Allergies: Coded Allergies: coconut (Verified Allergy, Severe, Anaphylaxis, 01/22/17) rash, hives, throat sweeling ROS General: No: Chills, Night Sweats, Fatigue, Malaise, Appetite, Other PSYCHOLOGICAL ROS: No: Anxiety, Behavioral Disorder, Concentration difficultie , Decreased libido, Depression, Disorientation, Hallucinations, Hostility, Irritablity, Memory difficulties, Mood Swings, Obsessive thoughts, Physical abuse, Sexual abuse, Sleep disturbances, Suicidal ideation, Other Eyes: No Blurry vision, No Decreased vision, No Double vision, No Dry eyes, No Excessive tearing, No Eye Pain, No Itchy Eyes, No Loss of vision, No Photophobia , No Scotomata, No Uses contacts, No Uses glasses, No Other HEENT: No: Heacaches, Visual Changes, Hearing change, Nasal congestion, Nasal discharge, Oral lesions, Sinus pain, Sore Throat, Epistaxis, Sneezing, Snoring, Tinnitus, Vertigo, Vocal changes, Other Hematological and Lymphatic: No: Bleeding Problems, Blood Clots, Blood Transfusions, Brusing, Night Sweats, Pallor, Swollen Lymph Nodes, Other Respiratory: No: Cough, Hemoptysis, Orthopnea, Pleuritic Pain, Shortness of breath, SOB with excertion, Sputum Changes, Stridor, Tachypnea, Wheezing, Other Cardiovascular: No Chest Pain, No Palpitations, No Orthopnea, No Paroxysmal Noc. Dyspnea, No Edema, No Lt Headedness, No Other Gastrointestinal: Yes Nausea, Yes Vomiting, Yes Abdominal Pain, Yes Other; No Diarrhea, No Constipation, No Melena, No Hematochezia Genitourinary: No Dysuria, No Frequency, No Incontinence, No Hematuria, No Retention, No Discharge, No Urgency, No Pain, No Flank Pain, No Other, No , No , No , No , No , No , No Musculoskeletal: No Gait Disturbance, No Joint Pain, No Joint Stiffness, No Joint Swelling, No Muscle Pain, No Muscular Weakness, No Pain In:, No Swelling In:, No Other Neurological: No Behavorial Changes, No Bowel/Bladder ControlChng, No Confusion , No Dizziness, No Gait Disturbance, No Headaches, No Impaired Coord/balance, No Memory Loss, No Numbness/Tingling, No Seizures, No Speech Problems, No Tremors, No Visual Changes, No Weakness, No Other Skin: No Dry Skin, No Eczema, No Hair Changes, No Lumps, No Mole Changes, No Mottling, No Nail Changes, No Pruritus, No Rash, No Skin Lesion Changes, No Other, No Acne Physical Exam General: Cooperative, mild distress HEENT: EOMI, Mucous membr. moist/pink Heart: no gallops, no murmurs Abdomen: Normal bowel sounds Rectal Exam: not examined Extremities: No clubbing, No edema Neuro: Normal tone, Sensation intact Psych/Mental Status: Mood NL Vitals Vitals Vital Signs Date Time Temp Pulse Resp B/P (MAP) Pulse Ox O2 Delivery O2 Flow Rate FiO2 06/06/18 14:34 128 21 133/89 (104) 98 Room Air 06/06/18 09:00 98.2 98.2 Labs Labs Laboratory Tests Test 06/06/18 09:12 06/06/18 09:15 06/06/18 11:50 Urine Opiates Screen Neg (NEG) Urine Methadone Screen Neg (NEG) Urine Barbiturates Neg (NEG) Urine Phencyclidine Screen Neg (NEG) Urine Amphetamine/Methamphetamine Neg (NEG) Urine Benzodiazepines Screen Neg (NEG) Urine Cocaine Screen Neg (NEG) Urine Cannabinoids Screen Pos (NEG) Urine Ethyl Alcohol Neg (NEG) Bedside Urine HCG, Qualitative Hcg negative (Negative) White Blood Count 10.6 x10^3/uL (4.0-11.0) Red Blood Count 4.68 x10^6/uL (3.50-5.40) Hemoglobin 14.4 g/dL (12.0-15.5) Hematocrit 42.0 % (36.0-47.0) Mean Corpuscular Volume 90 fL (79-100) Mean Corpuscular Hemoglobin 31 pg (25-35) Mean Corpuscular Hemoglobin Concent 34 g/dL (31-37) Red Cell Distribution Width 13.1 % (11.5-14.5) Platelet Count 161 x10^3/uL (140-400) Neutrophils (%) (Auto) 88 % (31-73) Lymphocytes (%) (Auto) 8 % (24-48) Monocytes (%) (Auto) 4 % (0-9) Eosinophils (%) (Auto) 0 % (0-3) Basophils (%) (Auto) 0 % (0-3) Neutrophils # (Auto) 9.3 x10^3uL (1.8-7.7) Lymphocytes # (Auto) 0.9 x10^3/uL (1.0-4.8) Monocytes # (Auto) 0.4 x10^3/uL (0.0-1.1) Eosinophils # (Auto) 0.0 x10^3/uL (0.0-0.7) Basophils # (Auto) 0.0 x10^3/uL (0.0-0.2) Segmented Neutrophils % 76 % (35-66) Band Neutrophils % 9 % (0-9) Lymphocytes % 9 % (24-48) Monocytes % 5 % (0-10) Basophils % 1 % (0-3) Platelet Estimate Adequate (ADEQUATE) Sodium Level 140 mmol/L (136-145) Potassium Level 3.7 mmol/L (3.5-5.1) Chloride Level 106 mmol/L (98-107) Carbon Dioxide Level 23 mmol/L (21-32) Anion Gap 11 (6-14) Blood Urea Nitrogen 8 mg/dL (7-20) Creatinine 0.7 mg/dL (0.6-1.0) Estimated GFR (Cockcroft-Gault) 102.0 Glucose Level 118 mg/dL (70-99) Calcium Level 8.5 mg/dL (8.5-10.1) Total Bilirubin 0.6 mg/dL (0.2-1.0) Direct Bilirubin 0.1 mg/dL (0.0-0.2) Aspartate Amino Transf (AST/SGOT) 11 U/L (15-37) Alanine Aminotransferase (ALT/SGPT) 18 U/L (14-59) Alkaline Phosphatase 64 U/L (46-116) Total Protein 7.6 g/dL (6.4-8.2) Albumin 4.1 g/dL (3.4-5.0) Lipase 100 U/L (73-393) Laboratory Tests Test 06/06/18 09:12 06/06/18 09:15 06/06/18 11:50 Urine Opiates Screen Neg (NEG) Urine Methadone Screen Neg (NEG) Urine Barbiturates Neg (NEG) Urine Phencyclidine Screen Neg (NEG) Urine Amphetamine/Methamphetamine Neg (NEG) Urine Benzodiazepines Screen Neg (NEG) Urine Cocaine Screen Neg (NEG) Urine Cannabinoids Screen Pos (NEG) Urine Ethyl Alcohol Neg (NEG) Bedside Urine HCG, Qualitative Hcg negative (Negative) White Blood Count 10.6 x10^3/uL (4.0-11.0) Red Blood Count 4.68 x10^6/uL (3.50-5.40) Hemoglobin 14.4 g/dL (12.0-15.5) Hematocrit 42.0 % (36.0-47.0) Mean Corpuscular Volume 90 fL (79-100) Mean Corpuscular Hemoglobin 31 pg (25-35) Mean Corpuscular Hemoglobin Concent 34 g/dL (31-37) Red Cell Distribution Width 13.1 % (11.5-14.5) Platelet Count 161 x10^3/uL (140-400) Neutrophils (%) (Auto) 88 % (31-73) Lymphocytes (%) (Auto) 8 % (24-48) Monocytes (%) (Auto) 4 % (0-9) Eosinophils (%) (Auto) 0 % (0-3) Basophils (%) (Auto) 0 % (0-3) Neutrophils # (Auto) 9.3 x10^3uL (1.8-7.7) Lymphocytes # (Auto) 0.9 x10^3/uL (1.0-4.8) Monocytes # (Auto) 0.4 x10^3/uL (0.0-1.1) Eosinophils # (Auto) 0.0 x10^3/uL (0.0-0.7) Basophils # (Auto) 0.0 x10^3/uL (0.0-0.2) Segmented Neutrophils % 76 % (35-66) Band Neutrophils % 9 % (0-9) Lymphocytes % 9 % (24-48) Monocytes % 5 % (0-10) Basophils % 1 % (0-3) Platelet Estimate Adequate (ADEQUATE) Sodium Level 140 mmol/L (136-145) Potassium Level 3.7 mmol/L (3.5-5.1) Chloride Level 106 mmol/L (98-107) Carbon Dioxide Level 23 mmol/L (21-32) Anion Gap 11 (6-14) Blood Urea Nitrogen 8 mg/dL (7-20) Creatinine 0.7 mg/dL (0.6-1.0) Estimated GFR (Cockcroft-Gault) 102.0 Glucose Level 118 mg/dL (70-99) Calcium Level 8.5 mg/dL (8.5-10.1) Total Bilirubin 0.6 mg/dL (0.2-1.0) Direct Bilirubin 0.1 mg/dL (0.0-0.2) Aspartate Amino Transf (AST/SGOT) 11 U/L (15-37) Alanine Aminotransferase (ALT/SGPT) 18 U/L (14-59) Alkaline Phosphatase 64 U/L (46-116) Total Protein 7.6 g/dL (6.4-8.2) Albumin 4.1 g/dL (3.4-5.0) Lipase 100 U/L (73-393) VTE Prophylaxis Ordered VTE Prophylaxis Devices: No VTE Pharmacological Prophylaxi: Yes Assessment/Plan Assessment/Plan THC abuse disorder cyclic vomiting syndrome nausea and vomting non compliance with prior med rec RICK HUNTER MD Jun 06, 2018 16:20
[2018-06-06] MEDS: ONDANSETRON PF 4 MG/2 ML VIAL. IV PRN (17:17)
[2018-06-06] MEDS: IV NORMAL SALINE 1000ML BAG 1,000 ML IV SCH (17:18)
[2018-06-06 19:00] VITALS: BP 138/92
[2018-06-06 23:00] VITALS: BP 148/97
[2018-06-07] MEDS: IV NORMAL SALINE 1000ML BAG 1,000 ML IV SCH ×2 (01:56→10:59)
[2018-06-07 03:00] VITALS: BP 106/68
[2018-06-07] MEDS: MORPHINE SULFATE 2 MG/ML VIAL. IV PRN ×2 (03:30→08:57)
[2018-06-07 05:09] LABS: CALCIUM 8.3 mg/dL (8.5-10.1); CREATININE 0.7 mg/dL (0.6-1.0); POTASSIUM 3.2 mmol/L (3.5-5.1)
[2018-06-07 07:00] VITALS: BP 123/91
[2018-06-07 11:00] VITALS: BP 117/75
[2018-06-07] MEDS: MORPHINE SULFATE 4 MG/ML VIAL. IV PRN ×4 (11:17→20:11)
[2018-06-07] MEDS: ONDANSETRON PF 4 MG/2 ML VIAL. IV PRN (11:17)
--- NOTE | 2018-06-07 13:11 | PDOC ---
PROGRESS NOTES Chief Complaint Chief Complaint acute abdominal pain THC abuse disorder cyclic vomiting syndrome nausea and vomting non compliance with prior med rec History of Present Illness History of Present Illness pain better, has eaten a little still having pain, requests fent patch, try to DC daily Vitals Vitals Vital Signs Date Time Temp Pulse Resp B/P (MAP) Pulse Ox O2 Delivery O2 Flow Rate FiO2 06/07/18 11:51 97 Room Air 06/07/18 11:00 98.0 85 17 117/75 (89) 98.0 Physical Exam General: Cooperative, mild distress Heart: Regular rate Lungs: Clear, Other Abdomen: Normal bowel sounds Extremities: No clubbing, No edema Labs LABS Laboratory Tests Test 06/07/18 03:35 Sodium Level 136 mmol/L (136-145) Potassium Level 3.2 mmol/L (3.5-5.1) Chloride Level 104 mmol/L (98-107) Carbon Dioxide Level 24 mmol/L (21-32) Anion Gap 8 (6-14) Blood Urea Nitrogen 4 mg/dL (7-20) Creatinine 0.7 mg/dL (0.6-1.0) Estimated GFR (Cockcroft-Gault) 102.0 Glucose Level 110 mg/dL (70-99) Calcium Level 8.3 mg/dL (8.5-10.1) Review of Systems Review of Systems pain, nausea, neck pain, insomnia Assessment and Plan Assessmemt and Plan Problems Medical Problems: (1) Intractable vomiting Status: Acute Comment Review of Relevant I have reviewed the following items miguel (where applicable) has been applied. Labs Laboratory Tests Test 06/06/18 09:12 06/06/18 09:15 06/06/18 11:50 06/07/18 03:35 Urine Opiates Screen Neg (NEG) Urine Methadone Screen Neg (NEG) Urine Barbiturates Neg (NEG) Urine Phencyclidine Screen Neg (NEG) Urine Amphetamine/Methamphetamine Neg (NEG) Urine Benzodiazepines Screen Neg (NEG) Urine Cocaine Screen Neg (NEG) Urine Cannabinoids Screen Pos (NEG) Urine Ethyl Alcohol Neg (NEG) Bedside Urine HCG, Qualitative Hcg negative (Negative) White Blood Count 10.6 x10^3/uL (4.0-11.0) Red Blood Count 4.68 x10^6/uL (3.50-5.40) Hemoglobin 14.4 g/dL (12.0-15.5) Hematocrit 42.0 % (36.0-47.0) Mean Corpuscular Volume 90 fL (79-100) Mean Corpuscular Hemoglobin 31 pg (25-35) Mean Corpuscular Hemoglobin Concent 34 g/dL (31-37) Red Cell Distribution Width 13.1 % (11.5-14.5) Platelet Count 161 x10^3/uL (140-400) Neutrophils (%) (Auto) 88 % (31-73) Lymphocytes (%) (Auto) 8 % (24-48) Monocytes (%) (Auto) 4 % (0-9) Eosinophils (%) (Auto) 0 % (0-3) Basophils (%) (Auto) 0 % (0-3) Neutrophils # (Auto) 9.3 x10^3uL (1.8-7.7) Lymphocytes # (Auto) 0.9 x10^3/uL (1.0-4.8) Monocytes # (Auto) 0.4 x10^3/uL (0.0-1.1) Eosinophils # (Auto) 0.0 x10^3/uL (0.0-0.7) Basophils # (Auto) 0.0 x10^3/uL (0.0-0.2) Segmented Neutrophils % 76 % (35-66) Band Neutrophils % 9 % (0-9) Lymphocytes % 9 % (24-48) Monocytes % 5 % (0-10) Basophils % 1 % (0-3) Platelet Estimate Adequate (ADEQUATE) Sodium Level 140 mmol/L (136-145) 136 mmol/L (136-145) Potassium Level 3.7 mmol/L (3.5-5.1) 3.2 mmol/L (3.5-5.1) Chloride Level 106 mmol/L (98-107) 104 mmol/L (98-107) Carbon Dioxide Level 23 mmol/L (21-32) 24 mmol/L (21-32) Anion Gap 11 (6-14) 8 (6-14) Blood Urea Nitrogen 8 mg/dL (7-20) 4 mg/dL (7-20) Creatinine 0.7 mg/dL (0.6-1.0) 0.7 mg/dL (0.6-1.0) Estimated GFR (Cockcroft-Gault) 102.0 102.0 Glucose Level 118 mg/dL (70-99) 110 mg/dL (70-99) Calcium Level 8.5 mg/dL (8.5-10.1) 8.3 mg/dL (8.5-10.1) Total Bilirubin 0.6 mg/dL (0.2-1.0) Direct Bilirubin 0.1 mg/dL (0.0-0.2) Aspartate Amino Transf (AST/SGOT) 11 U/L (15-37) Alanine Aminotransferase (ALT/SGPT) 18 U/L (14-59) Alkaline Phosphatase 64 U/L (46-116) Total Protein 7.6 g/dL (6.4-8.2) Albumin 4.1 g/dL (3.4-5.0) Lipase 100 U/L (73-393) Laboratory Tests Test 06/07/18 03:35 Sodium Level 136 mmol/L (136-145) Potassium Level 3.2 mmol/L (3.5-5.1) Chloride Level 104 mmol/L (98-107) Carbon Dioxide Level 24 mmol/L (21-32) Anion Gap 8 (6-14) Blood Urea Nitrogen 4 mg/dL (7-20) Creatinine 0.7 mg/dL (0.6-1.0) Estimated GFR (Cockcroft-Gault) 102.0 Glucose Level 110 mg/dL (70-99) Calcium Level 8.3 mg/dL (8.5-10.1) Medications Current Medications Sodium Chloride 1,000 ml @ 1,000 mls/hr 1X ONCE IV Last administered on 09:37; Start 06/06/18 at 09:15; Stop 06/06/18 at 10:14; Status DC Lorazepam (Ativan) 2 mg 1X ONCE IV Last administered on 06/06/18 09:38; Start 06/06/18 at 09:45; Stop 06/06/18 at 09:46; Status DC Haloperidol Lactate (Haldol Inj) 5 mg 1X ONCE IVP Last administered on 09:58; Start 06/06/18 at 10:15; Stop 06/06/18 at 10:16; Status DC Lorazepam (Ativan) 2 mg 1X ONCE IV Last administered on 06/06/18at 10:06; Start 06/06/18 at 10:30; Stop 06/06/18 at 10:31; Status DC Sodium Chloride 1,000 ml @ 1,000 mls/hr 1X ONCE IV Last administered on at 11:03; Start 06/06/18 at 11:00; Stop 06/06/18 at 11:59; Status DC Prochlorperazine Edisylate (Compazine) 10 mg 1X ONCE IV Last administered on at 12:53; Start 06/06/18 at 12:00; Stop 06/06/18 at 12:01; Status DC Diphenhydramine HCl (Benadryl) 25 mg 1X ONCE IVP Last administered on at 12:53; Start 06/06/18 at 12:00; Stop 06/06/18 at 12:01; Status DC Sodium Chloride 1,000 ml @ 1,000 mls/hr 1X ONCE IV Last administered on at 12:23; Start 06/06/18 at 12:00; Stop 06/06/18 at 12:59; Status DC Ondansetron HCl (Zofran) 4 mg PRN Q8HRS PRN IV NAUSEA/VOMITING Last administered on 06/07/18at 11:17; Start 06/06/18 at 15:00; Stop 06/07/18 at 14:59 Sodium Chloride 1,000 ml @ 100 mls/hr Q10H IV Last administered on 06/07/18at 10:59; Start 06/06/18 at 14:59; Stop 06/07/18 at 14:58 Lorazepam (Ativan) 2 mg PRN Q4HRS PRN IV ANXIETY/AGITATION 1ST CHOICE Last administered on 06/07/18at 08:57; Start 06/06/18 at 15:30 Haloperidol Lactate (Haldol Inj) 5 mg PRN Q6HRS PRN IVP AGITATION 2ND CHOICE; Start 06/06/18 at 15:30 Diphenhydramine HCl (Benadryl) 25 mg PRN Q6HRS PRN IVP ITCHING; Start 06/06/18 at 15:30 Morphine Sulfate (Morphine Sulfate) 2 mg PRN Q2HR PRN IV MODERATE PAIN Last administered on 06/07/18at 08:57; Start 06/07/18 at 00:00 Morphine Sulfate (Morphine Sulfate) 4 mg PRN Q2HR PRN IV SEVERE PAIN Last administered on 06/07/18at 11:17; Start 06/07/18 at 00:00 Active Scripts Active No Active Prescriptions or Reported Medications Vitals/I & O Vital Sign - Last 24 Hours 06/06/18 06/06/18 06/06/18 06/06/18 13:34 14:34 17:00 19:00 Temp 97.6 97.6 Pulse 132 128 119 Resp 34 21 16 B/P (MAP) 134/77 (96) 133/89 (104) 138/92 (107) Pulse Ox 98 98 97 O2 Delivery Room Air Room Air Room Air Room Air 06/06/18 06/06/18 06/07/18 06/07/18 20:00 23:00 03:00 03:30 Temp 98.1 97.7 98.1 97.7 Pulse 107 90 Resp 19 18 20 B/P (MAP) 148/97 (114) 106/68 (81) Pulse Ox 98 98 98 O2 Delivery Room Air Room Air Room Air Room Air 06/07/18 06/07/18 06/07/18 06/07/18 04:00 07:00 08:00 08:57 Temp 98.2 98.2 Pulse 91 Resp 16 17 B/P (MAP) 123/91 (102) Pulse Ox 97 97 O2 Delivery Room Air Room Air Room Air 06/07/18 06/07/18 06/07/18 06/07/18 09:30 11:00 11:17 11:51 Temp 98.0 98.0 Pulse 85 Resp 17 B/P (MAP) 117/75 (89) Pulse Ox 97 97 97 97 O2 Delivery Room Air Room Air Room Air Room Air Intake and Output 06/06/18 06/06/18 06/07/18 14:59 22:59 06:59 Intake Total 3000 ml 200 ml Output Total 200 ml 250 ml Balance 2800 ml -250 ml 200 ml RICK HUNTER MD Jun 07, 2018 13:10
[2018-06-07] MEDS ORDERED: fentaNYL 12MCG/HR PATCH 1 PATCH PATCH.TD72 TD ONE (13:30)
[2018-06-07] MEDS ORDERED: MAGNESIUM SULFATE 2GM 50 ML IV ONE (13:30)
[2018-06-07] MEDS ORDERED: POTASSIUM CHLORIDE 20 MEQ TABLET.ER. PO ONE (13:30)
[2018-06-07] MEDS: POTASSIUM CL 20MEQ D5-0.45NACL 1,000 ML IV SCH ×2 (13:55→17:34)
[2018-06-07 15:00] VITALS: BP 104/69
[2018-06-07 19:00] VITALS: BP 104/54
[2018-06-07] MEDS ORDERED: ONDANSETRON PF 4 MG/2 ML VIAL. IV PRN (21:45)
[2018-06-07] MEDS: ZOLPIDEM 5 MG TABLET. PO PRN (21:49)
[2018-06-07 22:49] VITALS: BP 138/89
[2018-06-08] MEDS: MORPHINE SULFATE 4 MG/ML VIAL. IV PRN ×5 (00:47→12:17)
[2018-06-08 02:46] VITALS: BP 106/67
[2018-06-08] MEDS: POTASSIUM CL 20MEQ D5-0.45NACL 1,000 ML IV SCH (05:54)
[2018-06-08 07:00] VITALS: BP 116/70
[2018-06-08] MEDS: POTASSIUM CHLORIDE 20 MEQ TABLET.ER. PO SCH (07:35)
--- NOTE | 2018-06-08 10:13 | PDOC ---
PROGRESS NOTES Chief Complaint Chief Complaint acute abdominal pain THC abuse disorder cyclic vomiting syndrome nausea and vomting non compliance with prior med rec History of Present Illness History of Present Illness pain better, she reports less PO intake today Britney says her anxiety is up, and nausea to match, feels like she cannot get out of bed on fent patch from yesterday she feels she cannot DC today, may try later try to DC daily Vitals Vitals Vital Signs Date Time Temp Pulse Resp B/P (MAP) Pulse Ox O2 Delivery O2 Flow Rate FiO2 06/08/18 09:59 95 Room Air 06/08/18 07:00 97.9 82 18 116/70 (85) 97.9 Physical Exam General: Cooperative, mild distress Heart: Regular rate Lungs: Clear, Other Abdomen: Normal bowel sounds Extremities: No clubbing, No edema Assessment and Plan Assessmemt and Plan Problems Medical Problems: (1) Intractable vomiting Status: Acute Comment Review of Relevant I have reviewed the following items miguel (where applicable) has been applied. Labs Laboratory Tests Test 06/06/18 11:50 06/07/18 03:35 White Blood Count 10.6 x10^3/uL (4.0-11.0) Red Blood Count 4.68 x10^6/uL (3.50-5.40) Hemoglobin 14.4 g/dL (12.0-15.5) Hematocrit 42.0 % (36.0-47.0) Mean Corpuscular Volume 90 fL (79-100) Mean Corpuscular Hemoglobin 31 pg (25-35) Mean Corpuscular Hemoglobin Concent 34 g/dL (31-37) Red Cell Distribution Width 13.1 % (11.5-14.5) Platelet Count 161 x10^3/uL (140-400) Neutrophils (%) (Auto) 88 % (31-73) Lymphocytes (%) (Auto) 8 % (24-48) Monocytes (%) (Auto) 4 % (0-9) Eosinophils (%) (Auto) 0 % (0-3) Basophils (%) (Auto) 0 % (0-3) Neutrophils # (Auto) 9.3 x10^3uL (1.8-7.7) Lymphocytes # (Auto) 0.9 x10^3/uL (1.0-4.8) Monocytes # (Auto) 0.4 x10^3/uL (0.0-1.1) Eosinophils # (Auto) 0.0 x10^3/uL (0.0-0.7) Basophils # (Auto) 0.0 x10^3/uL (0.0-0.2) Segmented Neutrophils % 76 % (35-66) Band Neutrophils % 9 % (0-9) Lymphocytes % 9 % (24-48) Monocytes % 5 % (0-10) Basophils % 1 % (0-3) Platelet Estimate Adequate (ADEQUATE) Sodium Level 140 mmol/L (136-145) 136 mmol/L (136-145) Potassium Level 3.7 mmol/L (3.5-5.1) 3.2 mmol/L (3.5-5.1) Chloride Level 106 mmol/L (98-107) 104 mmol/L (98-107) Carbon Dioxide Level 23 mmol/L (21-32) 24 mmol/L (21-32) Anion Gap 11 (6-14) 8 (6-14) Blood Urea Nitrogen 8 mg/dL (7-20) 4 mg/dL (7-20) Creatinine 0.7 mg/dL (0.6-1.0) 0.7 mg/dL (0.6-1.0) Estimated GFR (Cockcroft-Gault) 102.0 102.0 Glucose Level 118 mg/dL (70-99) 110 mg/dL (70-99) Calcium Level 8.5 mg/dL (8.5-10.1) 8.3 mg/dL (8.5-10.1) Total Bilirubin 0.6 mg/dL (0.2-1.0) Direct Bilirubin 0.1 mg/dL (0.0-0.2) Aspartate Amino Transf (AST/SGOT) 11 U/L (15-37) Alanine Aminotransferase (ALT/SGPT) 18 U/L (14-59) Alkaline Phosphatase 64 U/L (46-116) Total Protein 7.6 g/dL (6.4-8.2) Albumin 4.1 g/dL (3.4-5.0) Lipase 100 U/L (73-393) Medications Current Medications Sodium Chloride 1,000 ml @ 1,000 mls/hr 1X ONCE IV Last administered on at 09:37; Start 06/06/18 at 09:15; Stop 06/06/18 at 10:14; Status DC Lorazepam (Ativan) 2 mg 1X ONCE IV Last administered on 06/06/18at 09:38; Start 06/06/18 at 09:45; Stop 06/06/18 at 09:46; Status DC Haloperidol Lactate (Haldol Inj) 5 mg 1X ONCE IVP Last administered on at 09:58; Start 06/06/18 at 10:15; Stop 06/06/18 at 10:16; Status DC Lorazepam (Ativan) 2 mg 1X ONCE IV Last administered on 06/06/18at 10:06; Start 06/06/18 at 10:30; Stop 06/06/18 at 10:31; Status DC Sodium Chloride 1,000 ml @ 1,000 mls/hr 1X ONCE IV Last administered on at 11:03; Start 06/06/18 at 11:00; Stop 06/06/18 at 11:59; Status DC Prochlorperazine Edisylate (Compazine) 10 mg 1X ONCE IV Last administered on at 12:53; Start 06/06/18 at 12:00; Stop 06/06/18 at 12:01; Status DC Diphenhydramine HCl (Benadryl) 25 mg 1X ONCE IVP Last administered on at 12:53; Start 06/06/18 at 12:00; Stop 06/06/18 at 12:01; Status DC Sodium Chloride 1,000 ml @ 1,000 mls/hr 1X ONCE IV Last administered on at 12:23; Start 06/06/18 at 12:00; Stop 06/06/18 at 12:59; Status DC Ondansetron HCl (Zofran) 4 mg PRN Q8HRS PRN IV NAUSEA/VOMITING Last administered on 06/07/18at 11:17; Start 06/06/18 at 15:00; Stop 06/07/18 at 14:59 ; Status DC Sodium Chloride 1,000 ml @ 100 mls/hr Q10H IV Last administered on 06/07/18at 10:59; Start 06/06/18 at 14:59; Stop 06/07/18 at 13:07; Status DC Lorazepam (Ativan) 2 mg PRN Q4HRS PRN IV ANXIETY/AGITATION 1ST CHOICE Last administered on 06/08/18at 07:35; Start 06/06/18 at 15:30 Haloperidol Lactate (Haldol Inj) 5 mg PRN Q6HRS PRN IVP AGITATION 2ND CHOICE; Start 06/06/18 at 15:30 Diphenhydramine HCl (Benadryl) 25 mg PRN Q6HRS PRN IVP ITCHING; Start 06/06/18 at 15:30 Morphine Sulfate (Morphine Sulfate) 2 mg PRN Q2HR PRN IV MODERATE PAIN Last administered on 06/07/18at 08:57; Start 06/07/18 at 00:00; Stop 06/07/18 at 13:03 ; Status DC Morphine Sulfate (Morphine Sulfate) 4 mg PRN Q2HR PRN IV SEVERE PAIN Last administered on 06/08/18at 09:59; Start 06/07/18 at 00:00 Potassium Chloride (Klor-Con) 40 meq 1X ONCE PO Last administered on at 14:01; Start 06/07/18 at 13:30; Stop 06/07/18 at 13:31; Status DC Potassium Chloride (Klor-Con) 20 meq [id number] PO Last administered on at 07:35; Start 06/08/18 at 08:00 Magnesium Sulfate 50 ml @ 25 mls/hr 1X ONCE IV Last administered on 06/07/18at 14:02; Start 06/07/18 at 13:30; Stop 06/07/18 at 15:29; Status DC Potassium Chloride/Dextrose/ Sod Cl 1,000 ml @ 80 mls/hr [id number] IV Last administered on 06/08/18at 05:54; Start 06/07/18 at 13:30 Fentanyl (Duragesic 12mcg/ Hr Patch) 1 patch 1X ONCE TD Last administered on at 14:04; Start 06/07/18 at 13:30; Stop 06/07/18 at 13:31; Status DC Ondansetron HCl (Zofran) 4 mg PRN Q8HRS PRN IV NAUSEA/VOMITING 1ST CHOICE Last administered on 06/08/18at 07:35; Start 06/07/18 at 21:45 Zolpidem Tartrate (Ambien) 5 mg PRN QHS PRN PO INSOMNIA Last administered on at 21:49; Start 06/07/18 at 21:45 Active Scripts Active No Active Prescriptions or Reported Medications Vitals/I & O Vital Sign - Last 24 Hours 06/07/18 06/07/18 06/07/18 06/07/18 11:00 11:17 14:04 15:00 Temp 98.0 98.0 Pulse 85 Resp 17 B/P (MAP) 117/75 (89) Pulse Ox 97 97 97 99 O2 Delivery Room Air Room Air Room Air Room Air 06/07/18 06/07/18 06/07/18 06/07/18 15:00 17:34 19:00 20:00 Temp 98.0 97.7 98.0 97.7 Pulse 68 62 Resp 18 18 B/P (MAP) 104/69 (81) 104/54 (71) Pulse Ox 99 99 97 O2 Delivery Room Air Room Air Room Air Room Air 06/07/18 06/07/18 06/08/18 06/08/18 20:11 22:49 02:46 05:59 Temp 98.1 97.7 98.1 97.7 Pulse 90 62 Resp 18 18 18 B/P (MAP) 138/89 (105) 106/67 (80) Pulse Ox 97 95 O2 Delivery Room Air Room Air Room Air Room Air 06/08/18 06/08/18 06/08/18 06/08/18 07:00 07:35 08:00 08:15 Temp 97.9 97.9 Pulse 82 Resp 18 B/P (MAP) 116/70 (85) Pulse Ox 97 95 95 O2 Delivery Room Air Room Air Room Air Room Air 06/08/18 09:59 Pulse Ox 95 O2 Delivery Room Air Intake and Output 06/07/18 06/07/18 06/08/18 15:00 23:00 07:00 Intake Total 450 ml Balance 450 ml RICK HUNTER MD Jun 08, 2018 10:12
[2018-06-08 11:00] VITALS: BP 107/59
[2018-06-08] MEDS ORDERED: LORazepam INTENSOL 2 MG/ML ORAL.CONC SL PRN (13:45)
[2018-06-08] MEDS: oxyCODONE/APAP 5/325 1 TAB TABLET PO PRN ×2 (13:54→19:55)
[2018-06-08 15:00] VITALS: BP 105/52
[2018-06-08 19:00] VITALS: BP 125/84
[2018-06-08] MEDS: ZOLPIDEM 5 MG TABLET. PO PRN (21:11)
[2018-06-08 23:00] VITALS: BP 129/91
[2018-06-09 03:00] VITALS: BP 108/53
[2018-06-09] MEDS: POTASSIUM CL 20MEQ D5-0.45NACL 1,000 ML IV SCH (03:00)
[2018-06-09 07:00] VITALS: BP 103/43
[2018-06-09] MEDS: POTASSIUM CHLORIDE 20 MEQ TABLET.ER. PO SCH (08:41)
[2018-06-09] MEDS: oxyCODONE/APAP 5/325 1 TAB TABLET PO PRN (08:42)
--- NOTE | 2018-06-09 09:43 | PDOC3 ---
Discharge Summary Visit Information Date of Admission: Jun 06, 2018 Date of Discharge: Jun 09, 2018 Admitting Diagnosis: abd pain Final Diagnosis acute abdominal pain THC abuse disorder cyclic vomiting syndrome nausea and vomting non compliance with prior med rec Vitals Problems Medical Problems: (1) Intractable vomiting Status: Acute Brief Hospital Course Allergies Allergies Coded Allergies Type Severity Reaction Last Updated Verified coconut Allergy Severe Anaphylaxis 01/22/17 Yes Vital Signs Vital Signs Date Time Temp Pulse Resp B/P (MAP) Pulse Ox O2 Delivery O2 Flow Rate FiO2 06/09/18 08:42 99 Room Air 06/09/18 07:00 97.5 64 19 103/43 (63) 97.5 Brief Hospital Course Ms. Fernandez (Previously Jewels) is a 23 old female, abd pain, nausea and vomiting , THC hyperemesis cyclic vomiting, noncompliance IV meds for pain and nausea and aggressive fluids, she was lethargic and weak and complained of severe pain and nausea, but seemingly made herself to vomit AM of 06/09, she demanded to leave early, without beeing seen, I had planned DC, but will consider AMA as she is baseline noncompliant, Discharge Information Condition at Discharge: Improved Follow Up: Weeks Disposition/Orders: D/C to Home No Active Prescriptions or Reported Meds RICK HUNTER MD Jun 09, 2018 09:42
== END 2018-06-09 10:12 | disposition left against medical advice (07) | DRG 103 ==
LOC: ER 09:00 → 5 NORTH 14:20
PROVIDERS: ADMIT Internal Medicine; ATTEND Internal Medicine
DX: G43.A0 Cyclical vomiting, in migraine, not intractable (principal); Z83.3 Family history of diabetes mellitus; F12.10 Cannabis abuse, uncomplicated; Z91.19 Patient's noncompliance with other medical treatment and regimen; F41.0 Panic disorder [episodic paroxysmal anxiety]; Z82.49 Family history of ischemic heart disease and other diseases of the circulatory system; Z88.8 Allergy status to other drugs, medicaments and biological substances; Z91.018 Allergy to other foods
CPT/HCPCS: 36415; 80048; 80076; 80307; 81025; 83690; 85007; 85025; 93005; 96361; 96374; 96375; 96376; J0780; J1200; J1630; J2060; J2270; J2405; J3475; J7030; 99285-25; G0479

== ENCOUNTER 2018-06-15 01:56 | Emergency (ER) | payer BC ==
[~2018-06-15] VITALS: Ht 165.1 cm; Wt 72.1 kg
[2018-06-15] MEDS ORDERED: HALOPERIDOL LACTATE 5 MG/ML VIAL. IVP ONE (02:15)
[2018-06-15] MEDS ORDERED: PROCHLORPERAZINE 10 MG/2 ML VIAL. IV ONE (02:15)
[2018-06-15] MEDS ORDERED: diphenhydrAMINE 50 MG/ML VIAL IVP ONE (02:15)
[2018-06-15] MEDS ORDERED: IV NORMAL SALINE 1000ML BAG 1,000 ML IV ONE (02:30)
[2018-06-15 02:35] LABS: BASO # 0.1 x10^3/uL (0.0-0.2); BASO % 1 % (0-3); EOS # 0.1 x10^3/uL (0.0-0.7); EOS % 1 % (0-3); HEMATOCRIT 42.3 % (36.0-47.0); HEMOGLOBIN 14.8 g/dL (12.0-15.5); LYMPH # 2.3 x10^3/uL (1.0-4.8); LYMPH % 22 % (24-48); MEAN CORPUSCULAR HEMOGLOBIN 31 pg (25-35); MEAN CORPUSCULAR HGB CONC 35 g/dL (31-37); MEAN CORPUSCULAR VOLUME 89 fL (79-100); MONO # 0.6 x10^3/uL (0.0-1.1); MONO % 6 % (0-9); NEUT # 7.5 x10^3uL (1.8-7.7); NEUT % 71 % (31-73); PLATELET COUNT 198 x10^3/uL (140-400); RED BLOOD COUNT 4.74 x10^6/uL (3.50-5.40); RED CELL DISTRIBUTION WIDTH 12.9 % (11.5-14.5); WHITE BLOOD COUNT 10.6 x10^3/uL (4.0-11.0)
[2018-06-15 02:51] LABS: CALCIUM 9.3 mg/dL (8.5-10.1); CREATININE 0.8 mg/dL (0.6-1.0); GFR 87.4; POTASSIUM 3.4 mmol/L (3.5-5.1)
--- NOTE | 2018-06-15 04:29 | PHYS DOC ---
Past Medical History Past Medical History: Cyclic Vomiting, Other Additional Past Medical Histor: cyclic vomiting syndrome, PANIC ATTACKS Past Surgical History: Cholecystectomy Alcohol Use: Occasionally Drug Use: Marijuana Adult General Chief Complaint Chief Complaint: NAUSEA/VOMITING/DIARRHA HPI HPI Patient is a 23 year old female who presents with nausea and vomiting. Patient is well-known to this emergency department. She has cyclic vomiting and vomiting that is secondary to marijuana use. Patient was recently seen here and admitted within the last week. During that hospitalization, the patient was noted to be self inducing emesis. She has also been witnessed to do this in the ER previously. This evening, she presents in her usual fashion complaining of abdominal pain, anxiety and persistent nausea and vomiting. The patient is heaving on arrival to the emergency department. She has not had a fever or chills. She complains of diffuse abdominal pain. Review of Systems Review of Systems Constitutional: Denies fever or chills HENT: Denies nasal congestion Respiratory: Denies cough or shortness of breath Cardiovascular: No additional information not addressed in HPI GI: as documented above : Denies dysuria Musculoskeletal: Denies back pain Integument: Denies rash or skin lesions Neurologic: Denies headache Endocrine: Denies polyuria All other systems were reviewed and found to be within normal limits, except as documented in this note. Current Medications Current Medications Current Medications Medications (Trade) Dose Ordered Sig/Arnaldo Start Time Stop Time Status Last Admin Dose Admin Diphenhydramine HCl (Benadryl) 25 mg 1X ONCE 06/15/18 02:15 06/15/18 02:16 DC 06/15/18 02:34 25 MG Haloperidol Lactate (Haldol Inj) 5 mg 1X ONCE 06/15/18 02:15 06/15/18 02:16 DC 06/15/18 02:34 5 MG Lorazepam (Ativan) 1 mg 1X ONCE 06/15/18 04:15 06/15/18 04:16 DC 06/15/18 04:11 1 MG Prochlorperazine Edisylate (Compazine) 10 mg 1X ONCE 06/15/18 02:15 06/15/18 02:16 DC 06/15/18 02:34 10 MG Sodium Chloride 1,000 ml @ 1,000 mls/hr 1X ONCE 06/15/18 02:30 06/15/18 03:29 DC 06/15/18 02:30 1,000 MLS/HR Allergies Allergies Allergies Coded Allergies Type Severity Reaction Last Updated Verified coconut Allergy Severe Anaphylaxis 01/22/17 Yes Physical Exam Physical Exam Constitutional: Well developed, well nourished, no acute distress, non-toxic appearance, actively vomiting on arrival HENT: Normocephalic, atraumatic, bilateral external ears normal, oropharynx moist Eyes: PERRLA, EOMI, conjunctiva normal Cardiovascular:Heart rate regular rhythm, no murmur Lungs & Thorax: Bilateral breath sounds clear to auscultation Abdomen: Bowel sounds normal, soft, subjectively tender, but no guarding or rebound Skin: Warm, dry, no erythema Back: No tenderness, no CVA tenderness Extremities: No tenderness, no cyanosis Neurologic: Alert and oriented X 3 Current Patient Data Vital Signs Vital Signs Date Time Temp Pulse Resp B/P (MAP) Pulse Ox O2 Delivery O2 Flow Rate FiO2 06/15/18 03:49 98.1 94 151/97 (115) 98 Room Air 98.1 06/15/18 02:05 24 Lab Values Laboratory Tests Test 06/15/18 02:10 06/15/18 02:25 POC Urine HCG, Qualitative Hcg negative (Negative) White Blood Count 10.6 x10^3/uL (4.0-11.0) Red Blood Count 4.74 x10^6/uL (3.50-5.40) Hemoglobin 14.8 g/dL (12.0-15.5) Hematocrit 42.3 % (36.0-47.0) Mean Corpuscular Volume 89 fL (79-100) Mean Corpuscular Hemoglobin 31 pg (25-35) Mean Corpuscular Hemoglobin Concent 35 g/dL (31-37) Red Cell Distribution Width 12.9 % (11.5-14.5) Platelet Count 198 x10^3/uL (140-400) Neutrophils (%) (Auto) 71 % (31-73) Lymphocytes (%) (Auto) 22 % (24-48) L Monocytes (%) (Auto) 6 % (0-9) Eosinophils (%) (Auto) 1 % (0-3) Basophils (%) (Auto) 1 % (0-3) Neutrophils # (Auto) 7.5 x10^3uL (1.8-7.7) Lymphocytes # (Auto) 2.3 x10^3/uL (1.0-4.8) Monocytes # (Auto) 0.6 x10^3/uL (0.0-1.1) Eosinophils # (Auto) 0.1 x10^3/uL (0.0-0.7) Basophils # (Auto) 0.1 x10^3/uL (0.0-0.2) Sodium Level 138 mmol/L (136-145) Potassium Level 3.4 mmol/L (3.5-5.1) L Chloride Level 102 mmol/L (98-107) Carbon Dioxide Level 29 mmol/L (21-32) Anion Gap 7 (6-14) Blood Urea Nitrogen 12 mg/dL (7-20) Creatinine 0.8 mg/dL (0.6-1.0) Estimated GFR (Cockcroft-Gault) 87.4 Glucose Level 136 mg/dL (70-99) H Calcium Level 9.3 mg/dL (8.5-10.1) Laboratory Tests 06/15/18 02:25 Laboratory Tests 06/15/18 02:25 EKG EKG [] Radiology/Procedures Radiology/Procedures [] Course & Med Decision Making Course & Med Decision Making Pertinent Labs and Imaging studies reviewed. (See chart for details) Patient is seen and examined in the emergency department. She is vomiting on arrival. Her vital signs are normal. She had a CBC and a BMP which did not reveal acute findings. The patient was given 1 L normal saline. She was initially treated with Haldol 5 mg, Compazine 10 mg, Benadryl 25 mg. This combination did relieve her nausea and vomiting almost immediately. The patient continued to request pain medications and medications for anxiety throughout the ED course. She was given 2 doses of Ativan but no pain medications were given. I advised this patient again that pain medications were not indicated for her current presentation. Ultimately, the patient was observed for 2-1/2 hours after any episode of emesis. There was no recurrence of emesis. Her abdominal exam was benign. Her labs were also benign. The patient is discharged to home and encouraged to follow-up with her primary care doctor or return to the ER as needed. Dragon Disclaimer Dragon Disclaimer This electronic medical record was generated, in whole or in part, using a voice recognition dictation system. Departure Departure Referrals: NO PCP (PCP) Scripts No Active Prescriptions or Reported Meds ZEINAB PARKS DO Jun 15, 2018 04:29
[2018-06-15 04:45] VITALS: BP 144/96
== END 2018-06-15 04:46 | disposition home or self-care (01) ==
LOC: ER 01:56
DX: R10.84 Generalized abdominal pain (principal); R11.2 Nausea with vomiting, unspecified; F41.9 Anxiety disorder, unspecified; Z90.49 Acquired absence of other specified parts of digestive tract; F12.10 Cannabis abuse, uncomplicated; Z91.018 Allergy to other foods
CPT/HCPCS: 36415; 80048; 81025; 85025; 96361; 96374; 96375; 96376; 99284; J0780; J1200; J1630; J2060; J7030

== ENCOUNTER 2018-06-27 08:12 | Inpatient (IN) | payer BC ==
[~2018-06-27] VITALS: Ht 162.6 cm; Wt 70.8 kg
[2018-06-27] MEDS ORDERED: PROCHLORPERAZINE 10 MG/2 ML VIAL. IV ONE (08:30)
[2018-06-27] MEDS ORDERED: HALOPERIDOL LACTATE 5 MG/ML VIAL. IVP ONE (08:30)
[2018-06-27] MEDS ORDERED: PANTOPRAZOLE IV PUSH 40 MG VIAL. IVP ONE ×2 (08:30→12:45)
[2018-06-27] MEDS ORDERED: IV NORMAL SALINE 1000ML BAG 1,000 ML IV ONE ×3 (08:30→12:45)
[2018-06-27] MEDS ORDERED: diphenhydrAMINE 50 MG/ML VIAL IVP ONE (08:30)
[2018-06-27 08:40] LABS: AMPHETAMINE/METHAMPHETAMINE NEG (NEG); BARBITURATES NEG (NEG); BENZODIAZEPINES NEG (NEG); CANNABINOIDS POS (NEG); COCAINE NEG (NEG); METHADONE NEG (NEG); OPIATES NEG (NEG); PHENCYCLIDINE NEG (NEG)
[2018-06-27 08:57] LABS: CLARITY,URINE CLOUDY; COLOR,URINE YELLOW
[2018-06-27 08:58] LABS: BACTERIA,URINE FEW /HPF (0-FEW); BILIRUBIN,URINE NEGATIVE (NEG); NITRITE,URINE NEGATIVE (NEG); PH,URINE 5.5; PROTEIN,URINE NEGATIVE (NEG-TRACE); RBC,URINE 0 /HPF (0-2); SQUAMOUS EPITHELIAL CELL,UR MANY /LPF; UROBILINOGEN,URINE 0.2 mg/dL (0.2 mg/dL)
[2018-06-27 09:03] LABS: BASO # 0.1 x10^3/uL (0.0-0.2); BASO % 0 % (0-3); EOS # 0.1 x10^3/uL (0.0-0.7); EOS % 1 % (0-3); HEMATOCRIT 44.3 % (36.0-47.0); HEMOGLOBIN 15.4 g/dL (12.0-15.5); LYMPH # 2.8 x10^3/uL (1.0-4.8); LYMPH % 19 % (24-48); MEAN CORPUSCULAR HEMOGLOBIN 31 pg (25-35); MEAN CORPUSCULAR HGB CONC 35 g/dL (31-37); MEAN CORPUSCULAR VOLUME 89 fL (79-100); MONO # 0.7 x10^3/uL (0.0-1.1); MONO % 5 % (0-9); NEUT # 10.7 x10^3uL (1.8-7.7); NEUT % 75 % (31-73); PLATELET COUNT 236 x10^3/uL (140-400); RED CELL DISTRIBUTION WIDTH 12.9 % (11.5-14.5); WHITE BLOOD COUNT 14.3 x10^3/uL (4.0-11.0)
[2018-06-27 09:13] LABS: CALCIUM 9.3 mg/dL (8.5-10.1); CREATININE 0.8 mg/dL (0.6-1.0); GFR 87.4; POTASSIUM 3.3 mmol/L (3.5-5.1)
[2018-06-27 09:18] LABS: ALBUMIN 4.4 g/dL (3.4-5.0); ALBUMIN/GLOBULIN RATIO 1.1 (1.0-1.7); TOTAL BILIRUBIN 0.6 mg/dL (0.2-1.0); TOTAL PROTEIN 8.3 g/dL (6.4-8.2)
[2018-06-27] MEDS ORDERED: ONDANSETRON PF 4 MG/2 ML VIAL. IV ONE ×2 (09:45→11:45)
[2018-06-27] MEDS ORDERED: KETOROLAC 30 MG/ML VIAL. IV ONE (09:45)
[2018-06-27] MEDS ORDERED: CONTRAST GIVEN. MC PRN (10:30)
[2018-06-27] MEDS ORDERED: IOHEXOL 300 MG/ML 100ML VIAL. IV ONE (10:30)
--- NOTE | 2018-06-27 11:45 | RAD ---
PQRS Compliance Statement: One or more of the following individualized dose reduction techniques were utilized for this examination: 1. Automated exposure control 2. Adjustment of the mA and/or kV according to patient size 3. Use of iterative reconstruction technique CT abdomen/pelvis with contrast 06/27/2018 10:37 AM INDICATION: Abdominal pain, nausea and vomiting COMPARISON: CT abdomen/pelvis August 14, 2017 TECHNIQUE: Multiple axial CT images of the abdomen and pelvis were obtained after the intravenous administration of 75 mL Omnipaque 300. Coronal and sagittal reformats are provided. FINDINGS: Visualized portions of the lung bases are clear. Heart size is within normal limits. No suspicious hepatic masses are identified. Liver is homogeneous in enhancement. Spleen, bilateral adrenal glands, and pancreas are normal in appearance. Gallbladder is surgically absent. There is no intrahepatic or extrahepatic biliary ductal dilatation. The abdominal aorta is normal in course and caliber. There are no pathologically enlarged lymph nodes in the abdomen and pelvis. There is no abdominal free fluid. There is no free intraperitoneal air. The kidneys enhance symmetrically. There is no suspicious renal mass. There is no hydronephrosis. There are no suspected calculi within the kidneys, ureters or urinary bladder. Opacified portions of the renal collecting systems appear normal. Small and large bowel are normal in caliber. There is no evidence for bowel obstruction. There are no pericolonic inflammatory changes. A normal, nondilated appendix is visualized without adjacent inflammatory changes. Uterus is normal in appearance with IUD in place. Urinary bladder is within normal limits. No suspicious osseous abnormalities visualized. IMPRESSION: 1. Status post cholecystectomy without evidence for intrahepatic or extrahepatic biliary ductal dilatation. 2. No evidence for bowel obstruction or inflammation. Electronically signed by: Reva Villa MD (06/27/2018 11:41 AM) [id number]
--- NOTE | 2018-06-27 12:41 | PHYS DOC ---
Past Medical History Past Medical History: Anxiety, Cyclic Vomiting, Other Additional Past Medical Histor: PANIC ATTACKS Past Surgical History: Cholecystectomy Alcohol Use: Occasionally Drug Use: Marijuana Adult General Chief Complaint Chief Complaint: NAUSEA/VOMITING/DIARRHA HPI HPI Patient is a 23 year old female with a history of cyclic vomiting, anxiety, who presents today complaining of 10 out of 10 generalized abdominal pain with nausea and vomiting that began yesterday. Patient states her symptoms are induced by use of marijuana which she used to or 3 days ago. She arrived in the ED vomiting. Review of Systems Review of Systems Constitutional: Denies fever or chills [] Eyes: Denies change in visual acuity, redness, or eye pain [] HENT: Denies nasal congestion or sore throat [] Respiratory: Denies cough or shortness of breath [] Cardiovascular: No additional information not addressed in HPI [] GI: Reports generalized abdominal pain with nausea and vomiting, denies bloody stools or diarrhea [] : Denies dysuria or hematuria [] Musculoskeletal: Denies back pain or joint pain [] Integument: Denies rash or skin lesions [] Neurologic: Denies headache, focal weakness or sensory changes [] All other systems were reviewed and found to be within normal limits, except as documented in this note. Current Medications Current Medications Current Medications Medications (Trade) Dose Ordered Sig/Arnaldo Start Time Stop Time Status Last Admin Dose Admin Diphenhydramine HCl (Benadryl) 25 mg 1X ONCE 06/27/18 08:30 06/27/18 08:31 DC 06/27/18 08:56 25 MG Haloperidol Lactate (Haldol Inj) 5 mg 1X ONCE 06/27/18 08:30 06/27/18 08:31 DC 06/27/18 08:55 5 MG Info (CONTRAST GIVEN -- Rx MONITORING) 1 each PRN DAILY PRN 06/27/18 10:30 06/29/18 10:29 Iohexol (Omnipaque 300 Mg/ml) 75 ml 1X ONCE 06/27/18 10:30 06/27/18 10:31 DC 06/27/18 10:38 75 ML Ketorolac Tromethamine (Toradol 30mg Vial) 30 mg 1X ONCE 06/27/18 09:45 06/27/18 09:46 DC 06/27/18 09:44 30 MG Lorazepam (Ativan) 1 mg 1X ONCE 06/27/18 11:45 06/27/18 11:46 DC 06/27/18 11:45 1 MG Ondansetron HCl (Zofran) 4 mg 1X ONCE 06/27/18 11:45 06/27/18 11:46 DC 06/27/18 11:45 4 MG Pantoprazole Sodium (PROTONIX VIAL for IV PUSH) 40 mg 1X ONCE 06/27/18 08:30 06/27/18 13:03 DC 06/27/18 08:56 40 MG Prochlorperazine Edisylate (Compazine) 10 mg 1X ONCE 06/27/18 08:30 06/27/18 08:31 DC 06/27/18 08:55 10 MG Sodium Chloride 1,000 ml @ 1,000 mls/hr 1X ONCE 06/27/18 08:30 06/27/18 09:29 DC 06/27/18 11:10 1,000 MLS/HR Allergies Allergies Allergies Coded Allergies Type Severity Reaction Last Updated Verified coconut Allergy Severe Anaphylaxis 01/22/17 Yes Physical Exam Physical Exam Constitutional: Well developed, well nourished, no acute distress, non-toxic appearance. [] HENT: Normocephalic, atraumatic, bilateral external ears normal, oropharynx moist, no oral exudates, nose normal. [] Eyes: PERRLA, EOMI, conjunctiva normal, no discharge. [] Neck: Normal range of motion, no tenderness, supple, no stridor. [] Cardiovascular:Heart rate regular rhythm, no murmur [] Lungs & Thorax: Bilateral breath sounds clear to auscultation [] Abdomen: Patient is actively vomiting in the ED. Bowel sounds normal, soft, diffuse abdominal tenderness, no masses, no pulsatile masses. [] Skin: Warm, dry, no erythema, no rash. [] Back: No tenderness, no CVA tenderness. [] Extremities: No tenderness, no cyanosis, no clubbing, ROM intact, no edema. [] Neurologic: Alert and oriented X 3, normal motor function, normal sensory function, no focal deficits noted. [] Psychologic: Affect normal, judgement normal, mood normal. [] Current Patient Data Vital Signs Vital Signs Date Time Temp Pulse Resp B/P (MAP) Pulse Ox O2 Delivery O2 Flow Rate FiO2 06/27/18 12:22 112 16 150/90 (110) 97 Room Air 06/27/18 09:04 98.8 98.8 Lab Values Laboratory Tests Test 06/27/18 08:28 06/27/18 08:30 06/27/18 08:50 POC Urine HCG, Qualitative Hcg negative (Negative) Urine Collection Type Unknown Urine Color Yellow Urine Clarity Cloudy Urine pH 5.5 Urine Specific [place] 1.025 Urine Protein Negative mg/dL (NEG-TRACE) Urine Glucose (UA) Negative mg/dL (NEG) Urine Ketones (Stick) Negative mg/dL (NEG) Urine Blood Negative (NEG) Urine Nitrite Negative (NEG) Urine Bilirubin Negative (NEG) Urine Urobilinogen Dipstick 0.2 mg/dL (0.2 mg/dL) Urine Leukocyte Esterase Small (NEG) Urine RBC 0 /HPF (0-2) Urine WBC 1-4 /HPF (0-4) Urine Squamous Epithelial Cells Many /LPF Urine Bacteria Few /HPF (0-FEW) Urine Mucus Mod /LPF Urine Opiates Screen Neg (NEG) Urine Methadone Screen Neg (NEG) Urine Barbiturates Neg (NEG) Urine Phencyclidine Screen Neg (NEG) Urine Amphetamine/Methamphetamine Neg (NEG) Urine Benzodiazepines Screen Neg (NEG) Urine Cocaine Screen Neg (NEG) Urine Cannabinoids Screen Pos (NEG) Urine Ethyl Alcohol Neg (NEG) White Blood Count 14.3 x10^3/uL (4.0-11.0) H Red Blood Count 5.00 x10^6/uL (3.50-5.40) Hemoglobin 15.4 g/dL (12.0-15.5) Hematocrit 44.3 % (36.0-47.0) Mean Corpuscular Volume 89 fL (79-100) Mean Corpuscular Hemoglobin 31 pg (25-35) Mean Corpuscular Hemoglobin Concent 35 g/dL (31-37) Red Cell Distribution Width 12.9 % (11.5-14.5) Platelet Count 236 x10^3/uL (140-400) Neutrophils (%) (Auto) 75 % (31-73) H Lymphocytes (%) (Auto) 19 % (24-48) L Monocytes (%) (Auto) 5 % (0-9) Eosinophils (%) (Auto) 1 % (0-3) Basophils (%) (Auto) 0 % (0-3) Neutrophils # (Auto) 10.7 x10^3uL (1.8-7.7) H Lymphocytes # (Auto) 2.8 x10^3/uL (1.0-4.8) Monocytes # (Auto) 0.7 x10^3/uL (0.0-1.1) Eosinophils # (Auto) 0.1 x10^3/uL (0.0-0.7) Basophils # (Auto) 0.1 x10^3/uL (0.0-0.2) Sodium Level 138 mmol/L (136-145) Potassium Level 3.3 mmol/L (3.5-5.1) L Chloride Level 102 mmol/L (98-107) Carbon Dioxide Level 24 mmol/L (21-32) Anion Gap 12 (6-14) Blood Urea Nitrogen 13 mg/dL (7-20) Creatinine 0.8 mg/dL (0.6-1.0) Estimated GFR (Cockcroft-Gault) 87.4 BUN/Creatinine Ratio 16 (6-20) Glucose Level 143 mg/dL (70-99) H Calcium Level 9.3 mg/dL (8.5-10.1) Total Bilirubin 0.6 mg/dL (0.2-1.0) Aspartate Amino Transferase (AST) 18 U/L (15-37) Alanine Aminotransferase (ALT) 23 U/L (14-59) Alkaline Phosphatase 75 U/L (46-116) Total Protein 8.3 g/dL (6.4-8.2) H Albumin 4.4 g/dL (3.4-5.0) Albumin/Globulin Ratio 1.1 (1.0-1.7) Lipase 165 U/L (73-393) Ethyl Alcohol Level < 10 mg/dL (0-10) Laboratory Tests 06/27/18 08:50 Laboratory Tests 06/27/18 08:50 EKG EKG [] Radiology/Procedures Radiology/Procedures [] Course & Med Decision Making Course & Med Decision Making Pertinent Labs and Imaging studies reviewed. (See chart for details) This is a 23-year-old female patient well known to this ED for cyclic vomiting is presenting today complaining of abdominal pain with nausea and vomiting since yesterday. Patient's symptoms are typically induced by use of marijuana which she used to 3 days ago. Her drug screen is positive for marijuana. CBC with a WBC of 14.3 with a left shift. CMP with potassium of 3.3, patient will be given oral potassium replacement in the ED. Urine analysis appears contaminated. CT of the abdomen and pelvic was negative for any acute findings. Patient has been given Haldol, fluids, Protonix, Ativan twice for her anxiety, Zofran, Compazine, she stated complaining of nausea and abdominal pain. Also given Toradol. 12:[address] Vasquez and patient was admitted. Routine GI consult placed Staff Physician Addendum: I was working in the ER during the course of this patient's visit. I was available for consultation as needed, but I was not directly involved in the care of this patient. Dragon Disclaimer Dragon Disclaimer This electronic medical record was generated, in whole or in part, using a voice recognition dictation system. Departure Departure Impression: Primary Impression: Intractable nausea and vomiting Additional Impression: Intractable abdominal pain Disposition: 09 ADMITTED INPATIENT Condition: STABLE Referrals: NO PCP (PCP) Problem Qualifiers Primary Impression: Intractable nausea and vomiting Vomiting type: cyclical vomiting Qualified Codes: G43.A1 - Cyclical vomiting , intractable MUTUNGA,BRIDGET ROGERS Jun 27, 2018 12:41 JOEL OCHOA MD Jun 27, 2018 15:58
[2018-06-27] MEDS ORDERED: ONDANSETRON PF 4 MG/2 ML VIAL. IV PRN ×2 (12:45→15:45)
[2018-06-27] MEDS ORDERED: PROCHLORPERAZINE 10 MG/2 ML VIAL. IV PRN (12:45)
--- NOTE | 2018-06-27 13:22 | PDOC2 ---
GI CONSULT Reason For Consult: Intractable n/v, abd pain HPI: HPI: 23 y/o female, 6th ER visit since we've last seen her in April of this year. I saw her in the ER w/ pending admission - she's not feeling well and is rather unpleasant, not interested in talking, doesn't want me to touch her, etc. "Cyclic vomiting syndrome" - n/v and abd pain recurred last night, denies precipitating events. We've tried amitriptyline (she says helps) and PPI in the past - takes nothing at home now. "I haven't had time to go to the doctor because I just got health insurance." (She told me this the last two times we've seen her.) Past GI workup: EGD w/ Dr. Nieto at some point, records unavailable. S/p cholecystectomy. Normal GES in 09/2016. DAJA and Cortisol neg/normal in 07/2017. UGI/SBS in 01/2018 w/ mild GERD, no hiatal hernia, normal stomach and duodenum, no obstruction. Always + marijuana - milder symptoms improved at home w/ hot showers which is suspicious for cannabis hyperemesis. PMH: PMH: CVS, asthma, substance abuse, anxiety/depression, IUD, cholecystectomy FH: Family History: No pertinent hx (denies GI cancers, IBD, Washburn's, lupus) Social History: Smoke: No ALCOHOL: social Drugs: Marijuana ROS: GEN: Denies fevers, chills, sweats HEENT: Denies blurred vision, sore throat CV: Denies chest pain RESP: Denies shortness of air, cough GI: Per HPI : Denies hematuria, dysuria ENDO: Denies weight changes NEURO: Denies confusion, dizziness MSK: Denies weakness, joint pain/swelling SKIN: Denies jaundice, pruritus Vitals: Vitals: Vital Signs Date Time Temp Pulse Resp B/P (MAP) Pulse Ox O2 Delivery O2 Flow Rate FiO2 06/27/18 12:22 112 16 150/90 (110) 97 Room Air 06/27/18 09:04 98.8 98.8 Labs: Labs: Laboratory Tests Test 06/27/18 08:28 06/27/18 08:30 06/27/18 08:50 Bedside Urine HCG, Qualitative Hcg negative (Negative) Urine Collection Type Unknown Urine Color Yellow Urine Clarity Cloudy Urine pH 5.5 Urine Specific [place] 1.025 Urine Protein Negative mg/dL (NEG-TRACE) Urine Glucose (UA) Negative mg/dL (NEG) Urine Ketones (Stick) Negative mg/dL (NEG) Urine Blood Negative (NEG) Urine Nitrite Negative (NEG) Urine Bilirubin Negative (NEG) Urine Urobilinogen Dipstick 0.2 mg/dL (0.2 mg/dL) Urine Leukocyte Esterase Small (NEG) Urine RBC 0 /HPF (0-2) Urine WBC 1-4 /HPF (0-4) Urine Squamous Epithelial Cells Many /LPF Urine Bacteria Few /HPF (0-FEW) Urine Mucus Mod /LPF Urine Opiates Screen Neg (NEG) Urine Methadone Screen Neg (NEG) Urine Barbiturates Neg (NEG) Urine Phencyclidine Screen Neg (NEG) Urine Amphetamine/Methamphetamine Neg (NEG) Urine Benzodiazepines Screen Neg (NEG) Urine Cocaine Screen Neg (NEG) Urine Cannabinoids Screen Pos (NEG) Urine Ethyl Alcohol Neg (NEG) White Blood Count 14.3 x10^3/uL (4.0-11.0) Red Blood Count 5.00 x10^6/uL (3.50-5.40) Hemoglobin 15.4 g/dL (12.0-15.5) Hematocrit 44.3 % (36.0-47.0) Mean Corpuscular Volume 89 fL (79-100) Mean Corpuscular Hemoglobin 31 pg (25-35) Mean Corpuscular Hemoglobin Concent 35 g/dL (31-37) Red Cell Distribution Width 12.9 % (11.5-14.5) Platelet Count 236 x10^3/uL (140-400) Neutrophils (%) (Auto) 75 % (31-73) Lymphocytes (%) (Auto) 19 % (24-48) Monocytes (%) (Auto) 5 % (0-9) Eosinophils (%) (Auto) 1 % (0-3) Basophils (%) (Auto) 0 % (0-3) Neutrophils # (Auto) 10.7 x10^3uL (1.8-7.7) Lymphocytes # (Auto) 2.8 x10^3/uL (1.0-4.8) Monocytes # (Auto) 0.7 x10^3/uL (0.0-1.1) Eosinophils # (Auto) 0.1 x10^3/uL (0.0-0.7) Basophils # (Auto) 0.1 x10^3/uL (0.0-0.2) Sodium Level 138 mmol/L (136-145) Potassium Level 3.3 mmol/L (3.5-5.1) Chloride Level 102 mmol/L (98-107) Carbon Dioxide Level 24 mmol/L (21-32) Anion Gap 12 (6-14) Blood Urea Nitrogen 13 mg/dL (7-20) Creatinine 0.8 mg/dL (0.6-1.0) Estimated GFR (Cockcroft-Gault) 87.4 BUN/Creatinine Ratio 16 (6-20) Glucose Level 143 mg/dL (70-99) Calcium Level 9.3 mg/dL (8.5-10.1) Total Bilirubin 0.6 mg/dL (0.2-1.0) Aspartate Amino Transf (AST/SGOT) 18 U/L (15-37) Alanine Aminotransferase (ALT/SGPT) 23 U/L (14-59) Alkaline Phosphatase 75 U/L (46-116) Total Protein 8.3 g/dL (6.4-8.2) Albumin 4.4 g/dL (3.4-5.0) Albumin/Globulin Ratio 1.1 (1.0-1.7) Lipase 165 U/L (73-393) Ethyl Alcohol Level < 10 mg/dL (0-10) Allergies: Coded Allergies: coconut (Verified Allergy, Severe, Anaphylaxis, 01/22/17) rash, hives, throat sweeling Medications: Current Medications Medications (Trade) Dose Ordered Sig/Arnaldo Route PRN Reason Start Time Stop Time Status Last Admin Dose Admin Sodium Chloride 1,000 ml @ 1,000 mls/hr 1X ONCE IV 06/27/18 08:30 06/27/18 09:29 DC 06/27/18 08:55 Pantoprazole Sodium (PROTONIX VIAL for IV PUSH) 40 mg 1X ONCE IVP 06/27/18 08:30 06/27/18 13:03 DC 06/27/18 08:56 Prochlorperazine Edisylate (Compazine) 10 mg 1X ONCE IV 06/27/18 08:30 06/27/18 08:31 DC 06/27/18 08:55 Diphenhydramine HCl (Benadryl) 25 mg 1X ONCE IVP 06/27/18 08:30 06/27/18 08:31 DC 06/27/18 08:56 Sodium Chloride 1,000 ml @ 1,000 mls/hr 1X ONCE IV 06/27/18 08:30 06/27/18 09:29 DC 06/27/18 11:10 Haloperidol Lactate (Haldol Inj) 5 mg 1X ONCE IVP 06/27/18 08:30 06/27/18 08:31 DC 06/27/18 08:55 Ketorolac Tromethamine (Toradol 30mg Vial) 30 mg 1X ONCE IV 06/27/18 09:45 06/27/18 09:46 DC 06/27/18 09:44 Ondansetron HCl (Zofran) 4 mg 1X ONCE IV 06/27/18 09:45 06/27/18 09:46 DC 06/27/18 09:44 Lorazepam (Ativan) 1 mg 1X ONCE IV 06/27/18 10:15 06/27/18 10:16 DC 06/27/18 10:57 Iohexol (Omnipaque 300 Mg/ml) 75 ml 1X ONCE IV 06/27/18 10:30 06/27/18 10:31 DC 06/27/18 10:38 Lorazepam (Ativan) 1 mg 1X ONCE IV 06/27/18 11:45 06/27/18 11:46 DC 06/27/18 11:45 Ondansetron HCl (Zofran) 4 mg 1X ONCE IV 06/27/18 11:45 06/27/18 11:46 DC 06/27/18 11:45 Imaging: Imaging: CT A/P IMPRESSION: 1. Status post cholecystectomy without evidence for intrahepatic or extrahepatic biliary ductal dilatation. 2. No evidence for bowel obstruction or inflammation. PE: GEN: appears uncomfortable but in and out of sleep HEENT: Atraumatic, PERRL LUNGS: CTAB HEART: tachycardic ABD: tender w/ placement of stethoscope, pushes me away EXTREMITY: No edema SKIN: No rashes, no jaundice NEURO/PSYCH: A & O 3, drowsy - falls asleep while we're talking A/P: A/P: Recurrent n/v, abd pain - workup as above +marijuana -- Frequent ER visits and admissions. Supportive care, diet as able. When eating, change to PO PPI. Would be nice if she could take a holiday from marijuana as a trial. Pain control per primary - has exhibited drug-seeking tendencies in the past. LIBBY CAO Jun 27, 2018 13:22
[2018-06-27 15:02] VITALS: BP 145/98
[2018-06-27] MEDS ORDERED: [UNRECOGNIZED DRUG - REMARK] (15:09)
[2018-06-27] MEDS: IV NORMAL SALINE 1000ML BAG 1,000 ML IV SCH ×2 (15:30→23:30)
--- NOTE | 2018-06-27 15:34 | PDOC1 ---
History and Physical Date of Admission Date of Admission DATE: 06/27/18 TIME: 15:28 Identification/Chief Complaint Chief Complaint nausea and vomiting Source Source: Caregiver, Chart review, Patient History of Present Illness History of Present Illness Britney is a 23 year old female admit from ER with abd pain, nausea and vomiting. She has a history of cyclic vomiting, anxiety, w. 10 out of 10 generalized abdominal pain with nausea and vomiting 24 hours. about 15 admits her for same in the past year. she admitted recent THC use in the ER Past Medical History Cardiovascular: No pertinent hx Pulmonary: No pertinent hx GI: Other Heme/Onc: No pertinent hx Psych: Anxiety, Addictions, Panic Rheumatologic: No pertinent hx Endocrine: No pertinent hx, Other Past Surgical History Past Surgical History: Cholecystectomy Family History Family History: Diabetes, Heart Disease, Other Family History: Grandparents Social History Smoke: No ALCOHOL: social Drugs: Marijuana Current Problem List Problem List Problems Medical Problems: (1) Intractable abdominal pain Status: Acute Current Medications Current Medications Current Medications Sodium Chloride 1,000 ml @ 1,000 mls/hr 1X ONCE IV Last administered on at 08:55; Start 06/27/18 at 08:30; Stop 06/27/18 at 09:29; Status DC Pantoprazole Sodium (PROTONIX VIAL for IV PUSH) 40 mg 1X ONCE IVP Last administered on 06/27/18at 08:56; Start 06/27/18 at 08:30; Stop 06/27/18 at 13:03 ; Status DC Prochlorperazine Edisylate (Compazine) 10 mg 1X ONCE IV Last administered on at 08:55; Start 06/27/18 at 08:30; Stop 06/27/18 at 08:31; Status DC Diphenhydramine HCl (Benadryl) 25 mg 1X ONCE IVP Last administered on at 08:56; Start 06/27/18 at 08:30; Stop 06/27/18 at 08:31; Status DC Sodium Chloride 1,000 ml @ 1,000 mls/hr 1X ONCE IV Last administered on at 11:10; Start 06/27/18 at 08:30; Stop 06/27/18 at 09:29; Status DC Haloperidol Lactate (Haldol Inj) 5 mg 1X ONCE IVP Last administered on at 08:55; Start 06/27/18 at 08:30; Stop 06/27/18 at 08:31; Status DC Ketorolac Tromethamine (Toradol 30mg Vial) 30 mg 1X ONCE IV Last administered on 06/27/18at 09:44; Start 06/27/18 at 09:45; Stop 06/27/18 at 09:46; Status DC Ondansetron HCl (Zofran) 4 mg 1X ONCE IV Last administered on 06/27/18at 09:44 ; Start 06/27/18 at 09:45; Stop 06/27/18 at 09:46; Status DC Lorazepam (Ativan) 1 mg 1X ONCE IV Last administered on 06/27/18at 10:57; Start 06/27/18 at 10:15; Stop 06/27/18 at 10:16; Status DC Iohexol (Omnipaque 300 Mg/ml) 75 ml 1X ONCE IV Last administered on 06/27/18at 10:38; Start 06/27/18 at 10:30; Stop 06/27/18 at 10:31; Status DC Info (CONTRAST GIVEN -- Rx MONITORING) 1 each PRN DAILY PRN MC SEE COMMENTS; Start 06/27/18 at 10:30; Stop 06/29/18 at 10:29 Lorazepam (Ativan) 1 mg 1X ONCE IV Last administered on 06/27/18at 11:45; Start 06/27/18 at 11:45; Stop 06/27/18 at 11:46; Status DC Ondansetron HCl (Zofran) 4 mg 1X ONCE IV Last administered on 06/27/18at 11:45 ; Start 06/27/18 at 11:45; Stop 06/27/18 at 11:46; Status DC Ondansetron HCl (Zofran) 4 mg PRN Q8HRS PRN IV NAUSEA/VOMITING; Start 06/27/18 at 12:45; Stop 06/28/18 at 12:44 Sodium Chloride 1,000 ml @ 125 mls/hr 1X ONCE IV Last administered on at 15:11; Start 06/27/18 at 12:45; Stop 06/27/18 at 20:44 Pantoprazole Sodium (PROTONIX VIAL for IV PUSH) 40 mg 1X ONCE IVP ; Start 06/27 at 12:45; Stop 06/27/18 at 12:46; Status Cancel Lorazepam (Ativan) 1 mg PRN Q4HRS PRN IV ANXIETY / AGITATION; Start 06/27/18 at 12:45 Prochlorperazine Edisylate (Compazine) 10 mg PRN Q8HRS PRN IV VOMITING; Start 06/27/18 at 12:45 Pantoprazole Sodium (PROTONIX VIAL for IV PUSH) 40 mg DAILY07 IVP ; Start at 07:00 Pantoprazole Sodium (PROTONIX VIAL for IV PUSH) 40 mg DAILY IVP ; Start at 09:00; Stop 06/29/18 at 09:00; Status UNV Active Scripts Active Reported [no home medicatiion] Allergies Allergies: Coded Allergies: coconut (Verified Allergy, Severe, Anaphylaxis, 01/22/17) rash, hives, throat sweeling ROS General: YES: Chills, Fatigue, Malaise Gastrointestinal: Yes Nausea, Yes Vomiting, Yes Abdominal Pain Physical Exam General: Cooperative, moderate distress HEENT: EOMI, Mucous membr. moist/pink Heart: no gallops, other Extremities: Normal pulses Skin: No significant lesion, Other Neuro: Normal tone, Sensation intact Psych/Mental Status: Other (flat, withdrawn) Vitals Vitals Vital Signs Date Time Temp Pulse Resp B/P (MAP) Pulse Ox O2 Delivery O2 Flow Rate FiO2 06/27/18 15:02 98.6 96 20 145/98 (114) 98 Room Air 98.6 Labs Labs Laboratory Tests Test 06/27/18 08:28 06/27/18 08:30 06/27/18 08:50 Bedside Urine HCG, Qualitative Hcg negative (Negative) Urine Collection Type Unknown Urine Color Yellow Urine Clarity Cloudy Urine pH 5.5 Urine Specific [place] 1.025 Urine Protein Negative mg/dL (NEG-TRACE) Urine Glucose (UA) Negative mg/dL (NEG) Urine Ketones (Stick) Negative mg/dL (NEG) Urine Blood Negative (NEG) Urine Nitrite Negative (NEG) Urine Bilirubin Negative (NEG) Urine Urobilinogen Dipstick 0.2 mg/dL (0.2 mg/dL) Urine Leukocyte Esterase Small (NEG) Urine RBC 0 /HPF (0-2) Urine WBC 1-4 /HPF (0-4) Urine Squamous Epithelial Cells Many /LPF Urine Bacteria Few /HPF (0-FEW) Urine Mucus Mod /LPF Urine Opiates Screen Neg (NEG) Urine Methadone Screen Neg (NEG) Urine Barbiturates Neg (NEG) Urine Phencyclidine Screen Neg (NEG) Urine Amphetamine/Methamphetamine Neg (NEG) Urine Benzodiazepines Screen Neg (NEG) Urine Cocaine Screen Neg (NEG) Urine Cannabinoids Screen Pos (NEG) Urine Ethyl Alcohol Neg (NEG) White Blood Count 14.3 x10^3/uL (4.0-11.0) Red Blood Count 5.00 x10^6/uL (3.50-5.40) Hemoglobin 15.4 g/dL (12.0-15.5) Hematocrit 44.3 % (36.0-47.0) Mean Corpuscular Volume 89 fL (79-100) Mean Corpuscular Hemoglobin 31 pg (25-35) Mean Corpuscular Hemoglobin Concent 35 g/dL (31-37) Red Cell Distribution Width 12.9 % (11.5-14.5) Platelet Count 236 x10^3/uL (140-400) Neutrophils (%) (Auto) 75 % (31-73) Lymphocytes (%) (Auto) 19 % (24-48) Monocytes (%) (Auto) 5 % (0-9) Eosinophils (%) (Auto) 1 % (0-3) Basophils (%) (Auto) 0 % (0-3) Neutrophils # (Auto) 10.7 x10^3uL (1.8-7.7) Lymphocytes # (Auto) 2.8 x10^3/uL (1.0-4.8) Monocytes # (Auto) 0.7 x10^3/uL (0.0-1.1) Eosinophils # (Auto) 0.1 x10^3/uL (0.0-0.7) Basophils # (Auto) 0.1 x10^3/uL (0.0-0.2) Sodium Level 138 mmol/L (136-145) Potassium Level 3.3 mmol/L (3.5-5.1) Chloride Level 102 mmol/L (98-107) Carbon Dioxide Level 24 mmol/L (21-32) Anion Gap 12 (6-14) Blood Urea Nitrogen 13 mg/dL (7-20) Creatinine 0.8 mg/dL (0.6-1.0) Estimated GFR (Cockcroft-Gault) 87.4 BUN/Creatinine Ratio 16 (6-20) Glucose Level 143 mg/dL (70-99) Calcium Level 9.3 mg/dL (8.5-10.1) Total Bilirubin 0.6 mg/dL (0.2-1.0) Aspartate Amino Transf (AST/SGOT) 18 U/L (15-37) Alanine Aminotransferase (ALT/SGPT) 23 U/L (14-59) Alkaline Phosphatase 75 U/L (46-116) Total Protein 8.3 g/dL (6.4-8.2) Albumin 4.4 g/dL (3.4-5.0) Albumin/Globulin Ratio 1.1 (1.0-1.7) Lipase 165 U/L (73-393) Ethyl Alcohol Level < 10 mg/dL (0-10) Laboratory Tests Test 06/27/18 08:28 06/27/18 08:30 06/27/18 08:50 Bedside Urine HCG, Qualitative Hcg negative (Negative) Urine Collection Type Unknown Urine Color Yellow Urine Clarity Cloudy Urine pH 5.5 Urine Specific [place] 1.025 Urine Protein Negative mg/dL (NEG-TRACE) Urine Glucose (UA) Negative mg/dL (NEG) Urine Ketones (Stick) Negative mg/dL (NEG) Urine Blood Negative (NEG) Urine Nitrite Negative (NEG) Urine Bilirubin Negative (NEG) Urine Urobilinogen Dipstick 0.2 mg/dL (0.2 mg/dL) Urine Leukocyte Esterase Small (NEG) Urine RBC 0 /HPF (0-2) Urine WBC 1-4 /HPF (0-4) Urine Squamous Epithelial Cells Many /LPF Urine Bacteria Few /HPF (0-FEW) Urine Mucus Mod /LPF Urine Opiates Screen Neg (NEG) Urine Methadone Screen Neg (NEG) Urine Barbiturates Neg (NEG) Urine Phencyclidine Screen Neg (NEG) Urine Amphetamine/Methamphetamine Neg (NEG) Urine Benzodiazepines Screen Neg (NEG) Urine Cocaine Screen Neg (NEG) Urine Cannabinoids Screen Pos (NEG) Urine Ethyl Alcohol Neg (NEG) White Blood Count 14.3 x10^3/uL (4.0-11.0) Red Blood Count 5.00 x10^6/uL (3.50-5.40) Hemoglobin 15.4 g/dL (12.0-15.5) Hematocrit 44.3 % (36.0-47.0) Mean Corpuscular Volume 89 fL (79-100) Mean Corpuscular Hemoglobin 31 pg (25-35) Mean Corpuscular Hemoglobin Concent 35 g/dL (31-37) Red Cell Distribution Width 12.9 % (11.5-14.5) Platelet Count 236 x10^3/uL (140-400) Neutrophils (%) (Auto) 75 % (31-73) Lymphocytes (%) (Auto) 19 % (24-48) Monocytes (%) (Auto) 5 % (0-9) Eosinophils (%) (Auto) 1 % (0-3) Basophils (%) (Auto) 0 % (0-3) Neutrophils # (Auto) 10.7 x10^3uL (1.8-7.7) Lymphocytes # (Auto) 2.8 x10^3/uL (1.0-4.8) Monocytes # (Auto) 0.7 x10^3/uL (0.0-1.1) Eosinophils # (Auto) 0.1 x10^3/uL (0.0-0.7) Basophils # (Auto) 0.1 x10^3/uL (0.0-0.2) Sodium Level 138 mmol/L (136-145) Potassium Level 3.3 mmol/L (3.5-5.1) Chloride Level 102 mmol/L (98-107) Carbon Dioxide Level 24 mmol/L (21-32) Anion Gap 12 (6-14) Blood Urea Nitrogen 13 mg/dL (7-20) Creatinine 0.8 mg/dL (0.6-1.0) Estimated GFR (Cockcroft-Gault) 87.4 BUN/Creatinine Ratio 16 (6-20) Glucose Level 143 mg/dL (70-99) Calcium Level 9.3 mg/dL (8.5-10.1) Total Bilirubin 0.6 mg/dL (0.2-1.0) Aspartate Amino Transf (AST/SGOT) 18 U/L (15-37) Alanine Aminotransferase (ALT/SGPT) 23 U/L (14-59) Alkaline Phosphatase 75 U/L (46-116) Total Protein 8.3 g/dL (6.4-8.2) Albumin 4.4 g/dL (3.4-5.0) Albumin/Globulin Ratio 1.1 (1.0-1.7) Lipase 165 U/L (73-393) Ethyl Alcohol Level < 10 mg/dL (0-10) VTE Prophylaxis Ordered VTE Prophylaxis Devices: No VTE Pharmacological Prophylaxi: Yes Assessment/Plan Assessment/Plan SIRS recurrent nausea and vomiting cycling vomiting syndrome THC use, abuse, had been urged to quit admit, IV Fluid hypokalemia, replace RICK HUNTER MD Jun 27, 2018 15:34
[2018-06-27] MEDS ORDERED: POTASSIUM CHLORIDE 20 MEQ TABLET.ER. PO ONE (15:45)
[2018-06-27] MEDS ORDERED: POTASSIUM CL 40MEQ IN 0.9%NACL 1,000 ML IV ONE (16:30)
[2018-06-27] MEDS: MORPHINE SULFATE 4 MG/ML VIAL. IV PRN ×2 (17:10→23:32)
[2018-06-27 19:00] VITALS: BP 140/98
[2018-06-27 23:00] VITALS: BP 117/73
[2018-06-28] MEDS: MORPHINE SULFATE 4 MG/ML VIAL. IV PRN ×5 (02:13→12:16)
[2018-06-28 03:00] VITALS: BP 125/80
[2018-06-28 06:13] LABS: BASO % 0 % (0-3); EOS % 0 % (0-3); HEMATOCRIT 38.5 % (36.0-47.0); HEMOGLOBIN 13.3 g/dL (12.0-15.5); LYMPH # 2.3 x10^3/uL (1.0-4.8); LYMPH % 21 % (24-48); MEAN CORPUSCULAR HEMOGLOBIN 31 pg (25-35); MEAN CORPUSCULAR HGB CONC 35 g/dL (31-37); MEAN CORPUSCULAR VOLUME 89 fL (79-100); MONO # 0.9 x10^3/uL (0.0-1.1); MONO % 8 % (0-9); NEUT # 7.7 x10^3uL (1.8-7.7); NEUT % 70 % (31-73); PLATELET COUNT 200 x10^3/uL (140-400); RED BLOOD COUNT 4.34 x10^6/uL (3.50-5.40); RED CELL DISTRIBUTION WIDTH 13.5 % (11.5-14.5)
[2018-06-28 06:34] LABS: ALBUMIN 3.6 g/dL (3.4-5.0); ALBUMIN/GLOBULIN RATIO 1.2 (1.0-1.7); CALCIUM 8.6 mg/dL (8.5-10.1); CREATININE 0.7 mg/dL (0.6-1.0); POTASSIUM 3.4 mmol/L (3.5-5.1); TOTAL BILIRUBIN 0.8 mg/dL (0.2-1.0); TOTAL PROTEIN 6.7 g/dL (6.4-8.2)
[2018-06-28 07:00] VITALS: BP 107/64
[2018-06-28] MEDS ORDERED: PANTOPRAZOLE IV PUSH 40 MG VIAL. IVP SCH ×2 (07:00→09:00)
[2018-06-28] MEDS: IV NORMAL SALINE 1000ML BAG 1,000 ML IV SCH (07:30)
[2018-06-28] MEDS ORDERED: POTASSIUM CHLORIDE 20 MEQ TABLET.ER. PO SCH (08:00)
--- NOTE | 2018-06-28 10:43 | PDOC ---
PROGRESS NOTES Chief Complaint Chief Complaint Assessment/Plan Assessment/Plan SIRS recurrent nausea and vomiting cycling vomiting syndrome THC use, abuse, had been educated on need to quit admit, IV Fluid hypokalemia, replace insists on leaving today to help with niece will leave AMA , HIGH RISK RE-ADMIT Vitals Vitals Vital Signs Date Time Temp Pulse Resp B/P (MAP) Pulse Ox O2 Delivery O2 Flow Rate FiO2 06/28/18 10:08 95 Room Air 06/28/18 07:00 96.9 80 18 107/64 (78) 96.9 Physical Exam General: Alert, Oriented X3, Cooperative, moderate distress Heart: Regular rate, No murmurs Lungs: Clear, Other Abdomen: Other (tender, no rebound) Extremities: No clubbing, No cyanosis, Normal pulses Skin: No significant lesion, Other Labs LABS PQRS Compliance Statement: One or more of the following individualized dose reduction techniques were utilized for this examination: 1. Automated exposure control 2. Adjustment of the mA and/or kV according to patient size 3. Use of iterative reconstruction technique CT abdomen/pelvis with contrast 06/27/2018 10:37 AM INDICATION: Abdominal pain, nausea and vomiting COMPARISON: CT abdomen/pelvis August 14, 2017 TECHNIQUE: Multiple axial CT images of the abdomen and pelvis were obtained after the intravenous administration of 75 mL Omnipaque 300. Coronal and sagittal reformats are provided. FINDINGS: Visualized portions of the lung bases are clear. Heart size is within normal limits. No suspicious hepatic masses are identified. Liver is homogeneous in enhancement. Spleen, bilateral adrenal glands, and pancreas are normal in appearance. Gallbladder is surgically absent. There is no intrahepatic or extrahepatic biliary ductal dilatation. The abdominal aorta is normal in course and caliber. There are no pathologically enlarged lymph nodes in the abdomen and pelvis. There is no abdominal free fluid. There is no free intraperitoneal air. The kidneys enhance symmetrically. There is no suspicious renal mass. There is no hydronephrosis. There are no suspected calculi within the kidneys, ureters or urinary bladder. Opacified portions of the renal collecting systems appear normal. Small and large bowel are normal in caliber. There is no evidence for bowel obstruction. There are no pericolonic inflammatory changes. A normal, nondilated appendix is visualized without adjacent inflammatory changes. Uterus is normal in appearance with IUD in place. Urinary bladder is within normal limits. No suspicious osseous abnormalities visualized. IMPRESSION: 1. Status post cholecystectomy without evidence for intrahepatic or extrahepatic biliary ductal dilatation. 2. No evidence for bowel obstruction or inflammation. Electronically signed by: Delilah Villa MD (06/27/2018 11:41 AM) [id number] DICTATED and SIGNED BY: DELILAH VILLA MD DATE: 06/27/18 1123 Laboratory Tests Test 06/28/18 06:00 White Blood Count 11.0 x10^3/uL (4.0-11.0) Red Blood Count 4.34 x10^6/uL (3.50-5.40) Hemoglobin 13.3 g/dL (12.0-15.5) Hematocrit 38.5 % (36.0-47.0) Mean Corpuscular Volume 89 fL (79-100) Mean Corpuscular Hemoglobin 31 pg (25-35) Mean Corpuscular Hemoglobin Concent 35 g/dL (31-37) Red Cell Distribution Width 13.5 % (11.5-14.5) Platelet Count 200 x10^3/uL (140-400) Neutrophils (%) (Auto) 70 % (31-73) Lymphocytes (%) (Auto) 21 % (24-48) Monocytes (%) (Auto) 8 % (0-9) Eosinophils (%) (Auto) 0 % (0-3) Basophils (%) (Auto) 0 % (0-3) Neutrophils # (Auto) 7.7 x10^3uL (1.8-7.7) Lymphocytes # (Auto) 2.3 x10^3/uL (1.0-4.8) Monocytes # (Auto) 0.9 x10^3/uL (0.0-1.1) Eosinophils # (Auto) 0.0 x10^3/uL (0.0-0.7) Basophils # (Auto) 0.0 x10^3/uL (0.0-0.2) Sodium Level 138 mmol/L (136-145) Potassium Level 3.4 mmol/L (3.5-5.1) Chloride Level 106 mmol/L (98-107) Carbon Dioxide Level 24 mmol/L (21-32) Anion Gap 8 (6-14) Blood Urea Nitrogen 6 mg/dL (7-20) Creatinine 0.7 mg/dL (0.6-1.0) Estimated GFR (Cockcroft-Gault) 102.0 BUN/Creatinine Ratio 9 (6-20) Glucose Level 103 mg/dL (70-99) Calcium Level 8.6 mg/dL (8.5-10.1) Total Bilirubin 0.8 mg/dL (0.2-1.0) Aspartate Amino Transf (AST/SGOT) 17 U/L (15-37) Alanine Aminotransferase (ALT/SGPT) 20 U/L (14-59) Alkaline Phosphatase 58 U/L (46-116) Total Protein 6.7 g/dL (6.4-8.2) Albumin 3.6 g/dL (3.4-5.0) Albumin/Globulin Ratio 1.2 (1.0-1.7) Assessment and Plan Assessmemt and Plan Problems Medical Problems: (1) Intractable abdominal pain Status: Acute Comment Review of Relevant I have reviewed the following items miguel (where applicable) has been applied. Labs Laboratory Tests Test 06/27/18 08:28 06/27/18 08:30 06/27/18 08:50 06/28/18 06:00 Bedside Urine HCG, Qualitative Hcg negative (Negative) Urine Collection Type Unknown Urine Color Yellow Urine Clarity Cloudy Urine pH 5.5 Urine Specific [place] 1.025 Urine Protein Negative mg/dL (NEG-TRACE) Urine Glucose (UA) Negative mg/dL (NEG) Urine Ketones (Stick) Negative mg/dL (NEG) Urine Blood Negative (NEG) Urine Nitrite Negative (NEG) Urine Bilirubin Negative (NEG) Urine Urobilinogen Dipstick 0.2 mg/dL (0.2 mg/dL) Urine Leukocyte Esterase Small (NEG) Urine RBC 0 /HPF (0-2) Urine WBC 1-4 /HPF (0-4) Urine Squamous Epithelial Cells Many /LPF Urine Bacteria Few /HPF (0-FEW) Urine Mucus Mod /LPF Urine Opiates Screen Neg (NEG) Urine Methadone Screen Neg (NEG) Urine Barbiturates Neg (NEG) Urine Phencyclidine Screen Neg (NEG) Urine Amphetamine/Methamphetamine Neg (NEG) Urine Benzodiazepines Screen Neg (NEG) Urine Cocaine Screen Neg (NEG) Urine Cannabinoids Screen Pos (NEG) Urine Ethyl Alcohol Neg (NEG) White Blood Count 14.3 x10^3/uL (4.0-11.0) 11.0 x10^3/uL (4.0-11.0) Red Blood Count 5.00 x10^6/uL (3.50-5.40) 4.34 x10^6/uL (3.50-5.40) Hemoglobin 15.4 g/dL (12.0-15.5) 13.3 g/dL (12.0-15.5) Hematocrit 44.3 % (36.0-47.0) 38.5 % (36.0-47.0) Mean Corpuscular Volume 89 fL (79-100) 89 fL (79-100) Mean Corpuscular Hemoglobin 31 pg (25-35) 31 pg (25-35) Mean Corpuscular Hemoglobin Concent 35 g/dL (31-37) 35 g/dL (31-37) Red Cell Distribution Width 12.9 % (11.5-14.5) 13.5 % (11.5-14.5) Platelet Count 236 x10^3/uL (140-400) 200 x10^3/uL (140-400) Neutrophils (%) (Auto) 75 % (31-73) 70 % (31-73) Lymphocytes (%) (Auto) 19 % (24-48) 21 % (24-48) Monocytes (%) (Auto) 5 % (0-9) 8 % (0-9) Eosinophils (%) (Auto) 1 % (0-3) 0 % (0-3) Basophils (%) (Auto) 0 % (0-3) 0 % (0-3) Neutrophils # (Auto) 10.7 x10^3uL (1.8-7.7) 7.7 x10^3uL (1.8-7.7) Lymphocytes # (Auto) 2.8 x10^3/uL (1.0-4.8) 2.3 x10^3/uL (1.0-4.8) Monocytes # (Auto) 0.7 x10^3/uL (0.0-1.1) 0.9 x10^3/uL (0.0-1.1) Eosinophils # (Auto) 0.1 x10^3/uL (0.0-0.7) 0.0 x10^3/uL (0.0-0.7) Basophils # (Auto) 0.1 x10^3/uL (0.0-0.2) 0.0 x10^3/uL (0.0-0.2) Sodium Level 138 mmol/L (136-145) 138 mmol/L (136-145) Potassium Level 3.3 mmol/L (3.5-5.1) 3.4 mmol/L (3.5-5.1) Chloride Level 102 mmol/L (98-107) 106 mmol/L (98-107) Carbon Dioxide Level 24 mmol/L (21-32) 24 mmol/L (21-32) Anion Gap 12 (6-14) 8 (6-14) Blood Urea Nitrogen 13 mg/dL (7-20) 6 mg/dL (7-20) Creatinine 0.8 mg/dL (0.6-1.0) 0.7 mg/dL (0.6-1.0) Estimated GFR (Cockcroft-Gault) 87.4 102.0 BUN/Creatinine Ratio 16 (6-20) 9 (6-20) Glucose Level 143 mg/dL (70-99) 103 mg/dL (70-99) Calcium Level 9.3 mg/dL (8.5-10.1) 8.6 mg/dL (8.5-10.1) Total Bilirubin 0.6 mg/dL (0.2-1.0) 0.8 mg/dL (0.2-1.0) Aspartate Amino Transf (AST/SGOT) 18 U/L (15-37) 17 U/L (15-37) Alanine Aminotransferase (ALT/SGPT) 23 U/L (14-59) 20 U/L (14-59) Alkaline Phosphatase 75 U/L (46-116) 58 U/L (46-116) Total Protein 8.3 g/dL (6.4-8.2) 6.7 g/dL (6.4-8.2) Albumin 4.4 g/dL (3.4-5.0) 3.6 g/dL (3.4-5.0) Albumin/Globulin Ratio 1.1 (1.0-1.7) 1.2 (1.0-1.7) Lipase 165 U/L (73-393) Ethyl Alcohol Level < 10 mg/dL (0-10) Laboratory Tests Test 06/28/18 06:00 White Blood Count 11.0 x10^3/uL (4.0-11.0) Red Blood Count 4.34 x10^6/uL (3.50-5.40) Hemoglobin 13.3 g/dL (12.0-15.5) Hematocrit 38.5 % (36.0-47.0) Mean Corpuscular Volume 89 fL (79-100) Mean Corpuscular Hemoglobin 31 pg (25-35) Mean Corpuscular Hemoglobin Concent 35 g/dL (31-37) Red Cell Distribution Width 13.5 % (11.5-14.5) Platelet Count 200 x10^3/uL (140-400) Neutrophils (%) (Auto) 70 % (31-73) Lymphocytes (%) (Auto) 21 % (24-48) Monocytes (%) (Auto) 8 % (0-9) Eosinophils (%) (Auto) 0 % (0-3) Basophils (%) (Auto) 0 % (0-3) Neutrophils # (Auto) 7.7 x10^3uL (1.8-7.7) Lymphocytes # (Auto) 2.3 x10^3/uL (1.0-4.8) Monocytes # (Auto) 0.9 x10^3/uL (0.0-1.1) Eosinophils # (Auto) 0.0 x10^3/uL (0.0-0.7) Basophils # (Auto) 0.0 x10^3/uL (0.0-0.2) Sodium Level 138 mmol/L (136-145) Potassium Level 3.4 mmol/L (3.5-5.1) Chloride Level 106 mmol/L (98-107) Carbon Dioxide Level 24 mmol/L (21-32) Anion Gap 8 (6-14) Blood Urea Nitrogen 6 mg/dL (7-20) Creatinine 0.7 mg/dL (0.6-1.0) Estimated GFR (Cockcroft-Gault) 102.0 BUN/Creatinine Ratio 9 (6-20) Glucose Level 103 mg/dL (70-99) Calcium Level 8.6 mg/dL (8.5-10.1) Total Bilirubin 0.8 mg/dL (0.2-1.0) Aspartate Amino Transf (AST/SGOT) 17 U/L (15-37) Alanine Aminotransferase (ALT/SGPT) 20 U/L (14-59) Alkaline Phosphatase 58 U/L (46-116) Total Protein 6.7 g/dL (6.4-8.2) Albumin 3.6 g/dL (3.4-5.0) Albumin/Globulin Ratio 1.2 (1.0-1.7) Medications Current Medications Sodium Chloride 1,000 ml @ 1,000 mls/hr 1X ONCE IV Last administered on at 08:55; Start 06/27/18 at 08:30; Stop 06/27/18 at 09:29; Status DC Pantoprazole Sodium (PROTONIX VIAL for IV PUSH) 40 mg 1X ONCE IVP Last administered on 06/27/18at 08:56; Start 06/27/18 at 08:30; Stop 06/27/18 at 13:03 ; Status DC Prochlorperazine Edisylate (Compazine) 10 mg 1X ONCE IV Last administered on 08:55; Start 06/27/18 at 08:30; Stop 06/27/18 at 08:31; Status DC Diphenhydramine HCl (Benadryl) 25 mg 1X ONCE IVP Last administered on 08:56; Start 06/27/18 at 08:30; Stop 06/27/18 at 08:31; Status DC Sodium Chloride 1,000 ml @ 1,000 mls/hr 1X ONCE IV Last administered on at 11:10; Start 06/27/18 at 08:30; Stop 06/27/18 at 09:29; Status DC Haloperidol Lactate (Haldol Inj) 5 mg 1X ONCE IVP Last administered on 08:55; Start 06/27/18 at 08:30; Stop 06/27/18 at 08:31; Status DC Ketorolac Tromethamine (Toradol 30mg Vial) 30 mg 1X ONCE IV Last administered on 06/27/18at 09:44; Start 06/27/18 at 09:45; Stop 06/27/18 at 09:46; Status DC Ondansetron HCl (Zofran) 4 mg 1X ONCE IV Last administered on 9/10/18at 09:44 ; Start 06/27/18 at 09:45; Stop 06/27/18 at 09:46; Status DC Lorazepam (Ativan) 1 mg 1X ONCE IV Last administered on 06/27/18at 10:57; Start 06/27/18 at 10:15; Stop 06/27/18 at 10:16; Status DC Iohexol (Omnipaque 300 Mg/ml) 75 ml 1X ONCE IV Last administered on 06/27/18at 10:38; Start 06/27/18 at 10:30; Stop 06/27/18 at 10:31; Status DC Info (CONTRAST GIVEN -- Rx MONITORING) 1 each PRN DAILY PRN MC SEE COMMENTS; Start 06/27/18 at 10:30; Stop 06/29/18 at 10:29 Lorazepam (Ativan) 1 mg 1X ONCE IV Last administered on 06/27/18at 11:45; Start 06/27/18 at 11:45; Stop 06/27/18 at 11:46; Status DC Ondansetron HCl (Zofran) 4 mg 1X ONCE IV Last administered on 06/27/18at 11:45 ; Start 06/27/18 at 11:45; Stop 06/27/18 at 11:46; Status DC Ondansetron HCl (Zofran) 4 mg PRN Q8HRS PRN IV NAUSEA/VOMITING; Start 06/27/18 at 12:45; Stop 06/27/18 at 15:31; Status DC Sodium Chloride 1,000 ml @ 125 mls/hr 1X ONCE IV Last administered on at 15:11; Start 06/27/18 at 12:45; Stop 06/27/18 at 20:44; Status DC Pantoprazole Sodium (PROTONIX VIAL for IV PUSH) 40 mg 1X ONCE IVP ; Start 06/27 at 12:45; Stop 06/27/18 at 12:46; Status Cancel Lorazepam (Ativan) 1 mg PRN Q4HRS PRN IV ANXIETY / AGITATION; Start 06/27/18 at 12:45; Stop 06/27/18 at 15:31; Status DC Prochlorperazine Edisylate (Compazine) 10 mg PRN Q8HRS PRN IV VOMITING Last administered on 06/28/18at 04:22; Start 06/27/18 at 12:45 Pantoprazole Sodium (PROTONIX VIAL for IV PUSH) 40 mg DAILY07 IVP Last administered on 06/28/18at 06:39; Start 06/28/18 at 07:00 Pantoprazole Sodium (PROTONIX VIAL for IV PUSH) 40 mg DAILY IVP ; Start at 09:00; Stop 06/29/18 at 09:00; Status UNV Lorazepam (Ativan) 2 mg PRN Q4HRS PRN IV ANXIETY / AGITATION Last administered on 06/28/18at 08:06; Start 06/27/18 at 15:45 Ondansetron HCl (Zofran) 8 mg PRN Q8HRS PRN IV NAUSEA/VOMITING Last administered on 06/27/18at 20:21; Start 06/27/18 at 15:45 Sodium Chloride 1,000 ml @ 125 mls/hr Q8H IV Last administered on 06/28/18at 07 :30; Start 06/27/18 at 15:30 Potassium Chloride (Klor-Con) 20 meq [id number] PO Last administered on at 08:05; Start 06/28/18 at 08:00 Potassium Chloride (Klor-Con) 40 meq 1X ONCE PO ; Start 06/27/18 at 15:45; Stop 06/27/18 at 15:46; Status DC Potassium Chloride/Sodium Chloride 1,000 ml @ 122.549 mls/hr 1X ONCE IV Last administered on 06/27/18at 17:09; Start 06/27/18 at 16:30; Stop 06/28/18 at 00:39 ; Status DC Morphine Sulfate (Morphine Sulfate) 4 mg PRN Q2HR PRN IV MODERATE PAIN Last administered on 06/28/18at 10:08; Start 06/27/18 at 16:45 Active Scripts Active Reported [no home medicatiion] Vitals/I & O Vital Sign - Last 24 Hours 06/27/18 06/27/18 06/27/18 06/27/18 10:58 11:47 12:22 13:46 Pulse 118 130 112 115 Resp 24 20 16 14 B/P (MAP) 127/84 (98) 134/81 (98) 150/90 (110) 150/111 (124) Pulse Ox 98 98 97 98 O2 Delivery Room Air Room Air Room Air 06/27/18 06/27/18 06/27/18 06/27/18 14:24 15:02 16:00 17:10 Temp 98.6 98.6 Pulse 121 96 Resp 14 20 20 B/P (MAP) 137/90 (106) 145/98 (114) Pulse Ox 98 98 98 O2 Delivery Room Air Room Air Room Air 06/27/18 06/27/18 06/27/18 06/27/18 17:40 19:00 20:00 23:00 Temp 98.1 98.1 98.1 98.1 Pulse 125 97 Resp 20 18 18 B/P (MAP) 140/98 (112) 117/73 (88) Pulse Ox 96 95 O2 Delivery Room Air Room Air Room Air 06/27/18 06/28/18 06/28/18 06/28/18 23:32 02:13 03:00 04:22 Temp 99.1 99.1 Pulse 115 Resp 18 B/P (MAP) 125/80 (95) Pulse Ox 95 O2 Delivery Room Air Room Air Room Air Room Air 06/28/18 06/28/18 06/28/18 06/28/18 07:00 08:00 08:05 08:40 Temp 96.9 96.9 Pulse 80 Resp 18 B/P (MAP) 107/64 (78) Pulse Ox 96 95 95 O2 Delivery Room Air Room Air Room Air Room Air 06/28/18 10:08 Pulse Ox 95 O2 Delivery Room Air Intake and Output 06/27/18 06/27/18 06/28/18 15:00 23:00 07:00 Intake Total 2000 ml 0 ml Output Total 0 ml Balance 2000 ml 0 ml VIRGINIA DE GUZMAN MD Jun 28, 2018 10:43
[2018-06-28 11:00] VITALS: BP 111/76
[2018-06-28] MEDS ORDERED: POTASSIUM CHLORIDE 20MEQ 50 ML IV SCH (11:30)
--- NOTE | 2018-06-28 12:55 | PDOC ---
Subjective: Subjective: Still abd pain. Tolerating chicken noodle soup w/o vomiting. Has stooled. Objective: Vital Signs: Vital Signs Date Time Temp Pulse Resp B/P (MAP) Pulse Ox O2 Delivery O2 Flow Rate FiO2 06/28/18 12:16 97 Room Air 06/28/18 11:00 98.2 95 20 111/76 (88) 98.2 Labs: Laboratory Tests Test 06/28/18 06:00 White Blood Count 11.0 x10^3/uL Red Blood Count 4.34 x10^6/uL Hemoglobin 13.3 g/dL Hematocrit 38.5 % Mean Corpuscular Volume 89 fL Mean Corpuscular Hemoglobin 31 pg Mean Corpuscular Hemoglobin Concent 35 g/dL Red Cell Distribution Width 13.5 % Platelet Count 200 x10^3/uL Neutrophils (%) (Auto) 70 % Lymphocytes (%) (Auto) 21 % Monocytes (%) (Auto) 8 % Eosinophils (%) (Auto) 0 % Basophils (%) (Auto) 0 % Neutrophils # (Auto) 7.7 x10^3uL Lymphocytes # (Auto) 2.3 x10^3/uL Monocytes # (Auto) 0.9 x10^3/uL Eosinophils # (Auto) 0.0 x10^3/uL Basophils # (Auto) 0.0 x10^3/uL Sodium Level 138 mmol/L Potassium Level 3.4 mmol/L Chloride Level 106 mmol/L Carbon Dioxide Level 24 mmol/L Anion Gap 8 Blood Urea Nitrogen 6 mg/dL Creatinine 0.7 mg/dL Estimated GFR (Cockcroft-Gault) 102.0 BUN/Creatinine Ratio 9 Glucose Level 103 mg/dL Calcium Level 8.6 mg/dL Total Bilirubin 0.8 mg/dL Aspartate Amino Transf (AST/SGOT) 17 U/L Alanine Aminotransferase (ALT/SGPT) 20 U/L Alkaline Phosphatase 58 U/L Total Protein 6.7 g/dL Albumin 3.6 g/dL Albumin/Globulin Ratio 1.2 PE: GEN: uncomfortable getting potassium in IV LUNGS: CTAB HEART: RRR ABD: tender NEURO/PSYCH: A & O 3 A/P: Recurrent abd pain -extensive workup per consult note -- Supportive care, LIBBY HANDY Jun 28, 2018 12:55
[2018-06-28] MEDS ORDERED: POTASSIUM CHLORIDE 10MEQ 100 ML IV SCH ×2 (13:00)
--- NOTE | 2018-06-28 14:07 | PDOC3 ---
Discharge Summary Date of Admission: Jun 27, 2018 Date of Discharge: Jun 28, 2018 Follow-Up: 3-5 days Admitting Diagnosis comment: Chief Complaint Chief Complaint Assessment/Plan Assessment/Plan SIRS recurrent nausea and vomiting cycling vomiting syndrome THC use, abuse, had been educated on need to quit admit, IV Fluid hypokalemia, replace insists on leaving today to help with niece will leave AMA , HIGH RISK FOR RE- ADMIT Vitals Vitals Vital Signs Date Time Temp Pulse Resp B/P (MAP) Pulse Ox O2 Delivery O2 Flow Rate FiO2 06/28/18 10:08 95 Room Air 06/28/18 07:00 96.9 80 18 107/64 (78) 96.9 Physical Exam General: Alert, Oriented X3, Cooperative, moderate distress Heart: Regular rate, No murmurs Lungs: Clear, Other Abdomen: Other (tender, no rebound) Extremities: No clubbing, No cyanosis, Normal pulses Skin: No significant lesion, Other Labs FINAL DIAGNOSIS Problems Medical Problems: (1) Intractable abdominal pain Status: Acute Brief Hospital Course Ms. Fernandez is a 23 old [sex] who presented with [ ] Discharge Medications Current Medications Sodium Chloride 1,000 ml @ 1,000 mls/hr 1X ONCE IV Last administered on at 08:55; Start 06/27/18 at 08:30; Stop 06/27/18 at 09:29; Status DC Pantoprazole Sodium (PROTONIX VIAL for IV PUSH) 40 mg 1X ONCE IVP Last administered on 06/27/18at 08:56; Start 06/27/18 at 08:30; Stop 06/27/18 at 13:03 ; Status DC Prochlorperazine Edisylate (Compazine) 10 mg 1X ONCE IV Last administered on at 08:55; Start 06/27/18 at 08:30; Stop 06/27/18 at 08:31; Status DC Diphenhydramine HCl (Benadryl) 25 mg 1X ONCE IVP Last administered on at 08:56; Start 06/27/18 at 08:30; Stop 06/27/18 at 08:31; Status DC Sodium Chloride 1,000 ml @ 1,000 mls/hr 1X ONCE IV Last administered on at 11:10; Start 06/27/18 at 08:30; Stop 06/27/18 at 09:29; Status DC Haloperidol Lactate (Haldol Inj) 5 mg 1X ONCE IVP Last administered on at 08:55; Start 06/27/18 at 08:30; Stop 06/27/18 at 08:31; Status DC Ketorolac Tromethamine (Toradol 30mg Vial) 30 mg 1X ONCE IV Last administered on 06/27/18at 09:44; Start 06/27/18 at 09:45; Stop 06/27/18 at 09:46; Status DC Ondansetron HCl (Zofran) 4 mg 1X ONCE IV Last administered on 06/27/18at 09:44 ; Start 06/27/18 at 09:45; Stop 06/27/18 at 09:46; Status DC Lorazepam (Ativan) 1 mg 1X ONCE IV Last administered on 06/27/18at 10:57; Start 06/27/18 at 10:15; Stop 06/27/18 at 10:16; Status DC Iohexol (Omnipaque 300 Mg/ml) 75 ml 1X ONCE IV Last administered on 06/27/18at 10:38; Start 06/27/18 at 10:30; Stop 06/27/18 at 10:31; Status DC Info (CONTRAST GIVEN -- Rx MONITORING) 1 each PRN DAILY PRN MC SEE COMMENTS; Start 06/27/18 at 10:30; Stop 06/29/18 at 10:29 Lorazepam (Ativan) 1 mg 1X ONCE IV Last administered on 06/27/18at 11:45; Start 06/27/18 at 11:45; Stop 06/27/18 at 11:46; Status DC Ondansetron HCl (Zofran) 4 mg 1X ONCE IV Last administered on 06/27/18at 11:45 ; Start 06/27/18 at 11:45; Stop 06/27/18 at 11:46; Status DC Ondansetron HCl (Zofran) 4 mg PRN Q8HRS PRN IV NAUSEA/VOMITING; Start 06/27/18 at 12:45; Stop 06/27/18 at 15:31; Status DC Sodium Chloride 1,000 ml @ 125 mls/hr 1X ONCE IV Last administered on at 15:11; Start 06/27/18 at 12:45; Stop 06/27/18 at 20:44; Status DC Pantoprazole Sodium (PROTONIX VIAL for IV PUSH) 40 mg 1X ONCE IVP ; Start 06/27 at 12:45; Stop 06/27/18 at 12:46; Status Cancel Lorazepam (Ativan) 1 mg PRN Q4HRS PRN IV ANXIETY / AGITATION; Start 06/27/18 at 12:45; Stop 06/27/18 at 15:31; Status DC Prochlorperazine Edisylate (Compazine) 10 mg PRN Q8HRS PRN IV VOMITING Last administered on 06/28/18at 04:22; Start 06/27/18 at 12:45 Pantoprazole Sodium (PROTONIX VIAL for IV PUSH) 40 mg DAILY07 IVP Last administered on 06/28/18at 06:39; Start 06/28/18 at 07:00; Stop 06/28/18 at 12:56 ; Status DC Pantoprazole Sodium (PROTONIX VIAL for IV PUSH) 40 mg DAILY IVP ; Start at 09:00; Stop 06/29/18 at 09:00; Status UNV Lorazepam (Ativan) 2 mg PRN Q4HRS PRN IV ANXIETY / AGITATION Last administered on 06/28/18at 12:16; Start 06/27/18 at 15:45 Ondansetron HCl (Zofran) 8 mg PRN Q8HRS PRN IV NAUSEA/VOMITING Last administered on 06/27/18at 20:21; Start 06/27/18 at 15:45 Sodium Chloride 1,000 ml @ 125 mls/hr Q8H IV Last administered on 06/28/18at 07 :30; Start 06/27/18 at 15:30 Potassium Chloride (Klor-Con) 20 meq DAILYWBKFT PO Last administered on at 08:05; Start 06/28/18 at 08:00 Potassium Chloride (Klor-Con) 40 meq 1X ONCE PO ; Start 06/27/18 at 15:45; Stop 06/27/18 at 15:46; Status DC Potassium Chloride/Sodium Chloride 1,000 ml @ 122.549 mls/hr 1X ONCE IV Last administered on 06/27/18at 17:09; Start 06/27/18 at 16:30; Stop 06/28/18 at 00:39 ; Status DC Morphine Sulfate (Morphine Sulfate) 4 mg PRN Q2HR PRN IV MODERATE PAIN Last administered on 06/28/18at 12:16; Start 06/27/18 at 16:45 Potassium Chloride/Water 50 ml @ 50 mls/hr Q1H IV Last administered on at 12:25; Start 06/28/18 at 11:30; Stop 06/28/18 at 12:47; Status DC Potassium Chloride/Water 100 ml @ 100 mls/hr Q1H IV ; Start 06/28/18 at 13:00; Stop 06/28/18 at 15:59; Status Cancel Potassium Chloride/Water 100 ml @ 100 mls/hr Q1H IV ; Start 06/28/18 at 13:00; Stop 06/28/18 at 16:59 Pantoprazole Sodium (Protonix) 40 mg DAILYAC PO ; Start 06/29/18 at 07:30 Active Scripts Active Reported [no home medicatiion] Vital Signs Vital Signs Date Time Temp Pulse Resp B/P (MAP) Pulse Ox O2 Delivery O2 Flow Rate FiO2 06/28/18 12:46 97 Room Air 06/28/18 11:00 98.2 95 20 111/76 (88) 98.2 Labs Laboratory Tests Test 06/27/18 08:28 06/27/18 08:30 06/27/18 08:50 06/28/18 06:00 Bedside Urine HCG, Qualitative Hcg negative (Negative) Urine Collection Type Unknown Urine Color Yellow Urine Clarity Cloudy Urine pH 5.5 Urine Specific [place] 1.025 Urine Protein Negative mg/dL (NEG-TRACE) Urine Glucose (UA) Negative mg/dL (NEG) Urine Ketones (Stick) Negative mg/dL (NEG) Urine Blood Negative (NEG) Urine Nitrite Negative (NEG) Urine Bilirubin Negative (NEG) Urine Urobilinogen Dipstick 0.2 mg/dL (0.2 mg/dL) Urine Leukocyte Esterase Small (NEG) Urine RBC 0 /HPF (0-2) Urine WBC 1-4 /HPF (0-4) Urine Squamous Epithelial Cells Many /LPF Urine Bacteria Few /HPF (0-FEW) Urine Mucus Mod /LPF Urine Opiates Screen Neg (NEG) Urine Methadone Screen Neg (NEG) Urine Barbiturates Neg (NEG) Urine Phencyclidine Screen Neg (NEG) Urine Amphetamine/Methamphetamine Neg (NEG) Urine Benzodiazepines Screen Neg (NEG) Urine Cocaine Screen Neg (NEG) Urine Cannabinoids Screen Pos (NEG) Urine Ethyl Alcohol Neg (NEG) White Blood Count 14.3 x10^3/uL (4.0-11.0) 11.0 x10^3/uL (4.0-11.0) Red Blood Count 5.00 x10^6/uL (3.50-5.40) 4.34 x10^6/uL (3.50-5.40) Hemoglobin 15.4 g/dL (12.0-15.5) 13.3 g/dL (12.0-15.5) Hematocrit 44.3 % (36.0-47.0) 38.5 % (36.0-47.0) Mean Corpuscular Volume 89 fL (79-100) 89 fL (79-100) Mean Corpuscular Hemoglobin 31 pg (25-35) 31 pg (25-35) Mean Corpuscular Hemoglobin Concent 35 g/dL (31-37) 35 g/dL (31-37) Red Cell Distribution Width 12.9 % (11.5-14.5) 13.5 % (11.5-14.5) Platelet Count 236 x10^3/uL (140-400) 200 x10^3/uL (140-400) Neutrophils (%) (Auto) 75 % (31-73) 70 % (31-73) Lymphocytes (%) (Auto) 19 % (24-48) 21 % (24-48) Monocytes (%) (Auto) 5 % (0-9) 8 % (0-9) Eosinophils (%) (Auto) 1 % (0-3) 0 % (0-3) Basophils (%) (Auto) 0 % (0-3) 0 % (0-3) Neutrophils # (Auto) 10.7 x10^3uL (1.8-7.7) 7.7 x10^3uL (1.8-7.7) Lymphocytes # (Auto) 2.8 x10^3/uL (1.0-4.8) 2.3 x10^3/uL (1.0-4.8) Monocytes # (Auto) 0.7 x10^3/uL (0.0-1.1) 0.9 x10^3/uL (0.0-1.1) Eosinophils # (Auto) 0.1 x10^3/uL (0.0-0.7) 0.0 x10^3/uL (0.0-0.7) Basophils # (Auto) 0.1 x10^3/uL (0.0-0.2) 0.0 x10^3/uL (0.0-0.2) Sodium Level 138 mmol/L (136-145) 138 mmol/L (136-145) Potassium Level 3.3 mmol/L (3.5-5.1) 3.4 mmol/L (3.5-5.1) Chloride Level 102 mmol/L (98-107) 106 mmol/L (98-107) Carbon Dioxide Level 24 mmol/L (21-32) 24 mmol/L (21-32) Anion Gap 12 (6-14) 8 (6-14) Blood Urea Nitrogen 13 mg/dL (7-20) 6 mg/dL (7-20) Creatinine 0.8 mg/dL (0.6-1.0) 0.7 mg/dL (0.6-1.0) Estimated GFR (Cockcroft-Gault) 87.4 102.0 BUN/Creatinine Ratio 16 (6-20) 9 (6-20) Glucose Level 143 mg/dL (70-99) 103 mg/dL (70-99) Calcium Level 9.3 mg/dL (8.5-10.1) 8.6 mg/dL (8.5-10.1) Total Bilirubin 0.6 mg/dL (0.2-1.0) 0.8 mg/dL (0.2-1.0) Aspartate Amino Transf (AST/SGOT) 18 U/L (15-37) 17 U/L (15-37) Alanine Aminotransferase (ALT/SGPT) 23 U/L (14-59) 20 U/L (14-59) Alkaline Phosphatase 75 U/L (46-116) 58 U/L (46-116) Total Protein 8.3 g/dL (6.4-8.2) 6.7 g/dL (6.4-8.2) Albumin 4.4 g/dL (3.4-5.0) 3.6 g/dL (3.4-5.0) Albumin/Globulin Ratio 1.1 (1.0-1.7) 1.2 (1.0-1.7) Lipase 165 U/L (73-393) Ethyl Alcohol Level < 10 mg/dL (0-10) Laboratory Tests Test 06/28/18 06:00 White Blood Count 11.0 x10^3/uL (4.0-11.0) Red Blood Count 4.34 x10^6/uL (3.50-5.40) Hemoglobin 13.3 g/dL (12.0-15.5) Hematocrit 38.5 % (36.0-47.0) Mean Corpuscular Volume 89 fL (79-100) Mean Corpuscular Hemoglobin 31 pg (25-35) Mean Corpuscular Hemoglobin Concent 35 g/dL (31-37) Red Cell Distribution Width 13.5 % (11.5-14.5) Platelet Count 200 x10^3/uL (140-400) Neutrophils (%) (Auto) 70 % (31-73) Lymphocytes (%) (Auto) 21 % (24-48) Monocytes (%) (Auto) 8 % (0-9) Eosinophils (%) (Auto) 0 % (0-3) Basophils (%) (Auto) 0 % (0-3) Neutrophils # (Auto) 7.7 x10^3uL (1.8-7.7) Lymphocytes # (Auto) 2.3 x10^3/uL (1.0-4.8) Monocytes # (Auto) 0.9 x10^3/uL (0.0-1.1) Eosinophils # (Auto) 0.0 x10^3/uL (0.0-0.7) Basophils # (Auto) 0.0 x10^3/uL (0.0-0.2) Sodium Level 138 mmol/L (136-145) Potassium Level 3.4 mmol/L (3.5-5.1) Chloride Level 106 mmol/L (98-107) Carbon Dioxide Level 24 mmol/L (21-32) Anion Gap 8 (6-14) Blood Urea Nitrogen 6 mg/dL (7-20) Creatinine 0.7 mg/dL (0.6-1.0) Estimated GFR (Cockcroft-Gault) 102.0 BUN/Creatinine Ratio 9 (6-20) Glucose Level 103 mg/dL (70-99) Calcium Level 8.6 mg/dL (8.5-10.1) Total Bilirubin 0.8 mg/dL (0.2-1.0) Aspartate Amino Transf (AST/SGOT) 17 U/L (15-37) Alanine Aminotransferase (ALT/SGPT) 20 U/L (14-59) Alkaline Phosphatase 58 U/L (46-116) Total Protein 6.7 g/dL (6.4-8.2) Albumin 3.6 g/dL (3.4-5.0) Albumin/Globulin Ratio 1.2 (1.0-1.7) Allergies Allergies Coded Allergies Type Severity Reaction Last Updated Verified coconut Allergy Severe Anaphylaxis 01/22/17 Yes Disposition/Orders: D/C to Home, Other (LEFT AMA) VIRGINIA DE GUZMAN MD Jun 28, 2018 14:07
--- NOTE | 2018-06-28 14:08 | DISCH ---
DISCHARGE INSTRUCTIONS Condition on Discharge Condition on Discharge: Guarded Activity After Discharge Activity Instructions for Disc: Activity as tolerated Lifting Instructions after Dis: No heavy lifting, No pulling or pushing Exercise Instruction after Dis: Progress as tolerated Driving Instructions after Dis: Do not drive today Weight Bearing Status after Di: As tolerated Diet after Discharge Diet after Discharge: Regular Diet Texture: Regular Liquid Texture: Thin Liquid Swallowing Supervision: None needed Wound Incision Care Wound/Incision Care: No wound care needed Checks after Discharge Checks after discharge: Check blood press - daily Contacting the DR. after DC Call your doctor for: If your condition worsens Treatment/Equipment after DC Adaptive Equipment Issued: None VIRGINIA DE GUZMAN MD Jun 28, 2018 14:08
[2018-06-29] MEDS ORDERED: PANTOPRAZOLE 40 MG TABLET.DR. PO SCH (07:30)
== END 2018-06-28 14:31 | disposition left against medical advice (07) | DRG 392 ==
LOC: ER 08:12 → 5 NORTH 12:33
PROVIDERS: ADMIT Internal Medicine; ATTEND Internal Medicine
DX: K31.89 Other diseases of stomach and duodenum (principal); R65.10 Systemic inflammatory response syndrome (SIRS) of non-infectious origin without acute organ dysfunction; R11.2 Nausea with vomiting, unspecified; F41.0 Panic disorder [episodic paroxysmal anxiety]; F12.90 Cannabis use, unspecified, uncomplicated; E87.6 Hypokalemia; K21.9 Gastro-esophageal reflux disease without esophagitis; J45.909 Unspecified asthma, uncomplicated; F32.9 Major depressive disorder, single episode, unspecified; Z53.21 Procedure and treatment not carried out due to patient leaving prior to being seen by health care provider; Z90.49 Acquired absence of other specified parts of digestive tract; Z91.018 Allergy to other foods; Z83.3 Family history of diabetes mellitus; Z82.49 Family history of ischemic heart disease and other diseases of the circulatory system
CPT/HCPCS: 36415; 74177; 80053; 80307; 81001; 81025; 83690; 85025; 87086; 96361; 96374; 96375; 96376; C9113; G0480; J0780; J1200; J1630; J1885; J2060; J2270; J2405; J3480; J7030; Q9967; 99285-25; G0479

== ENCOUNTER 2018-07-04 07:25 | Emergency (ER) | payer BC ==
[~2018-07-04] VITALS: Ht 162.6 cm; Wt 59.0 kg
[~2018-07-04 07:25] MED LIST changes: +[UNRECOGNIZED DRUG - REMARK]
--- NOTE | 2018-07-04 07:45 | PHYS DOC ---
Past Medical History Past Medical History: Anxiety, Cyclic Vomiting, Other Additional Past Medical Histor: PANIC ATTACKS Past Surgical History: Cholecystectomy Alcohol Use: Occasionally Drug Use: Marijuana Adult General Chief Complaint Chief Complaint: ABDOMINAL PAIN HPI HPI Patient is a 23 year old female presented to the ER today for evaluation of nausea, vomiting and abdominal pain since 2 am today. Patient has history of cyclic vomiting syndrome and chronic abdominal pain. Patient denied any fever, NO VAGINAL BLEEDING OR DISCHARGE, NO PELVIC PAIN. Patient has been seen here numerous time for the same problem. Review of Systems Review of Systems Constitutional: Denies fever or chills [] Eyes: Denies change in visual acuity, redness, or eye pain [] HENT: Denies nasal congestion or sore throat [] Respiratory: Denies cough or shortness of breath [] Cardiovascular: No additional information not addressed in HPI [] GI: Positive for abdominal pain, nausea, vomiting. : Denies dysuria or hematuria [] Musculoskeletal: Denies back pain or joint pain [] Integument: Denies rash or skin lesions [] Neurologic: Denies headache, focal weakness or sensory changes [] Endocrine: Denies polyuria or polydipsia [] All other systems were reviewed and found to be within normal limits, except as documented in this note. Current Medications Current Medications Current Medications Medications (Trade) Dose Ordered Sig/Arnaldo Start Time Stop Time Status Last Admin Dose Admin Diphenhydramine HCl (Benadryl) 25 mg 1X ONCE 07/04/18 08:00 07/04/18 08:01 DC 07/04/18 08:49 25 MG Haloperidol Lactate (Haldol Inj) 5 mg 1X ONCE 07/04/18 08:00 07/04/18 08:01 DC 07/04/18 08:50 5 MG Lorazepam (Ativan) 1 mg 1X ONCE 07/04/18 08:00 07/04/18 08:01 DC 07/04/18 08:53 1 MG Ondansetron HCl (Zofran) 4 mg 1X ONCE 07/04/18 08:00 07/04/18 08:01 DC 07/04/18 08:47 4 MG Sodium Chloride 1,000 ml @ 1,000 mls/hr Q1H 07/04/18 08:00 07/04/18 08:59 DC 07/04/18 08:46 1,000 MLS/HR Allergies Allergies Allergies Coded Allergies Type Severity Reaction Last Updated Verified coconut Allergy Severe Anaphylaxis 01/22/17 Yes Physical Exam Physical Exam Constitutional: Well developed, well nourished, no acute distress, non-toxic appearance. [] HENT: Normocephalic, atraumatic, bilateral external ears normal, oropharynx moist, no oral exudates, nose normal. [] Eyes: PERRLA, EOMI, conjunctiva normal, no discharge. [] Neck: Normal range of motion, no tenderness, supple, no stridor. [] Cardiovascular:Heart rate regular rhythm, no murmur [] Lungs & Thorax: Bilateral breath sounds clear to auscultation [] Abdomen: Tender to palpation diffusely, no rebound, no guarding, positive bowel sound in all 4 quadrants. ] Skin: Warm, dry, no erythema, no rash. [] Back: No tenderness, no CVA tenderness. [] Extremities: No tenderness, no cyanosis, no clubbing, ROM intact, no edema. [] Neurologic: Alert and oriented X 3, normal motor function, normal sensory function, no focal deficits noted. [] Psychologic: Affect normal, judgement normal, mood normal. [] Current Patient Data Vital Signs Vital Signs Date Time Temp Pulse Resp B/P (MAP) Pulse Ox O2 Delivery O2 Flow Rate FiO2 07/04/18 08:56 66 18 100/59 (73) 98 Room Air 07/04/18 07:25 98.2 98.2 Lab Values Laboratory Tests Test 07/04/18 07:28 07/04/18 07:37 07/04/18 08:25 Urine Collection Type Void Urine Color Yellow Urine Clarity Turbid Urine pH 5.5 Urine Specific [place] 1.025 Urine Protein Negative mg/dL (NEG-TRACE) Urine Glucose (UA) Negative mg/dL (NEG) Urine Ketones (Stick) Negative mg/dL (NEG) Urine Blood Negative (NEG) Urine Nitrite Negative (NEG) Urine Bilirubin Negative (NEG) Urine Urobilinogen Dipstick 0.2 mg/dL (0.2 mg/dL) Urine Leukocyte Esterase Negative (NEG) Urine RBC 0 /HPF (0-2) Urine WBC 1-4 /HPF (0-4) Urine Squamous Epithelial Cells Many /LPF Urine Bacteria Few /HPF (0-FEW) Urine Mucus Mod /LPF Urine Opiates Screen Neg (NEG) Urine Methadone Screen Neg (NEG) Urine Barbiturates Neg (NEG) Urine Phencyclidine Screen Neg (NEG) Urine Amphetamine/Methamphetamine Neg (NEG) Urine Benzodiazepines Screen Neg (NEG) Urine Cocaine Screen Neg (NEG) Urine Cannabinoids Screen Pos (NEG) Urine Ethyl Alcohol Neg (NEG) POC Urine HCG, Qualitative Hcg negative (Negative) White Blood Count 10.4 x10^3/uL (4.0-11.0) Red Blood Count 4.44 x10^6/uL (3.50-5.40) Hemoglobin 13.6 g/dL (12.0-15.5) Hematocrit 39.3 % (36.0-47.0) Mean Corpuscular Volume 88 fL (79-100) Mean Corpuscular Hemoglobin 31 pg (25-35) Mean Corpuscular Hemoglobin Concent 35 g/dL (31-37) Red Cell Distribution Width 13.3 % (11.5-14.5) Platelet Count 187 x10^3/uL (140-400) Neutrophils (%) (Auto) 76 % (31-73) H Lymphocytes (%) (Auto) 16 % (24-48) L Monocytes (%) (Auto) 7 % (0-9) Eosinophils (%) (Auto) 1 % (0-3) Basophils (%) (Auto) 0 % (0-3) Neutrophils # (Auto) 8.0 x10^3uL (1.8-7.7) H Lymphocytes # (Auto) 1.7 x10^3/uL (1.0-4.8) Monocytes # (Auto) 0.7 x10^3/uL (0.0-1.1) Eosinophils # (Auto) 0.1 x10^3/uL (0.0-0.7) Basophils # (Auto) 0.0 x10^3/uL (0.0-0.2) Sodium Level 139 mmol/L (136-145) Potassium Level 3.9 mmol/L (3.5-5.1) Chloride Level 104 mmol/L (98-107) Carbon Dioxide Level 23 mmol/L (21-32) Anion Gap 12 (6-14) Blood Urea Nitrogen 12 mg/dL (7-20) Creatinine 0.6 mg/dL (0.6-1.0) Estimated GFR (Cockcroft-Gault) 121.8 BUN/Creatinine Ratio 20 (6-20) Glucose Level 101 mg/dL (70-99) H Calcium Level 8.6 mg/dL (8.5-10.1) Total Bilirubin 0.3 mg/dL (0.2-1.0) Aspartate Amino Transferase (AST) 14 U/L (15-37) L Alanine Aminotransferase (ALT) 18 U/L (14-59) Alkaline Phosphatase 63 U/L (46-116) Total Protein 6.8 g/dL (6.4-8.2) Albumin 3.9 g/dL (3.4-5.0) Albumin/Globulin Ratio 1.3 (1.0-1.7) Lipase 227 U/L (73-393) Laboratory Tests 07/04/18 08:25 Laboratory Tests 07/04/18 08:25 EKG EKG [] Radiology/Procedures Radiology/Procedures [][facility] [address] [place], [place] [id number] IMAGING REPORT Signed PATIENT: BILL GONZÁLES ACCOUNT: [id number] : 1995 LOCATION: ER AGE: 23 SEX: F EXAM STATUS: REG ER ORD. PHYSICIAN: BIENVENIDO RAMIREZ DO REASON: abdominal pain, nausea and vomiting PROCEDURE: ACUTE ABDOMEN SERIES EXAM: Frontal view of the chest, AP views of the abdomen in upright and supine positions. CLINICAL INDICATION: ABD PAIN, NAUSEA, VOMITING. HX CHRONIC ABD PAIN, CYCLICAL VOMITING SYNDROME COMPARISON: 01/22/2018 FINDINGS and IMPRESSION: The heart is not enlarged. Mediastinal and hilar contours are normal. No focal parenchymal airspace opacity. No pleural effusion or pneumothorax. No abnormal small or large bowel dilatation. Moderate colonic stool content. No abnormal soft tissue mass effect. No suspicious calcifications are seen. No free intraperitoneal gas. Right upper quadrant surgical clips are seen. IUD is seen within the pelvis. Electronically signed by: Lj Lemos MD (07/04/2018 9:45 AM) [id number] DICTATED and SIGNED BY: LJ LEMOS MD DATE: 07/04/18 6085 Course & Med Decision Making Course & Med Decision Making Pertinent Labs and Imaging studies reviewed. (See chart for details) Patient had been sleeping in the room, no nausea or vomiting, felt much better, will discharge patient home. Dragon Disclaimer Dragon Disclaimer This electronic medical record was generated, in whole or in part, using a voice recognition dictation system. Departure Departure Impression: Primary Impression: Cyclic vomiting syndrome Disposition: HOME, SELF-CARE Condition: IMPROVED Referrals: NO PCP (PCP) follow up with your family doctor this week for reevaluation. Patient Instructions: Cyclic Vomiting Syndrome Scripts Metoclopramide Hcl (REGLAN) 10 Mg Tablet 10 MG PO QIDACHS PRN for NAUSEA, #30 TAB 0 Refills Prov: BIENVENIDO RAMIREZ DO 07/04/18 BIENVENIDO RAMIREZ DO Jul 04, 2018 07:45
[2018-07-04 07:46] LABS: BILIRUBIN,URINE NEGATIVE (NEG); CLARITY,URINE TURBID; COLOR,URINE YELLOW; NITRITE,URINE NEGATIVE (NEG); PH,URINE 5.5; PROTEIN,URINE NEGATIVE (NEG-TRACE); UROBILINOGEN,URINE 0.2 mg/dL (0.2 mg/dL)
[2018-07-04 07:52] LABS: SQUAMOUS EPITHELIAL CELL,UR MANY /LPF
[2018-07-04 07:53] LABS: BACTERIA,URINE FEW /HPF (0-FEW); RBC,URINE 0 /HPF (0-2)
[2018-07-04] MEDS ORDERED: IV NORMAL SALINE 1000ML BAG 1,000 ML IV SCH (08:00)
[2018-07-04] MEDS ORDERED: diphenhydrAMINE 50 MG/ML VIAL IVP ONE (08:00)
[2018-07-04] MEDS ORDERED: ONDANSETRON PF 4 MG/2 ML VIAL. IV ONE (08:00)
[2018-07-04] MEDS ORDERED: HALOPERIDOL LACTATE 5 MG/ML VIAL. IVP ONE (08:00)
[2018-07-04 08:39] LABS: BASO % 0 % (0-3); EOS # 0.1 x10^3/uL (0.0-0.7); EOS % 1 % (0-3); HEMATOCRIT 39.3 % (36.0-47.0); HEMOGLOBIN 13.6 g/dL (12.0-15.5); LYMPH # 1.7 x10^3/uL (1.0-4.8); LYMPH % 16 % (24-48); MEAN CORPUSCULAR HEMOGLOBIN 31 pg (25-35); MEAN CORPUSCULAR HGB CONC 35 g/dL (31-37); MEAN CORPUSCULAR VOLUME 88 fL (79-100); MONO # 0.7 x10^3/uL (0.0-1.1); MONO % 7 % (0-9); NEUT % 76 % (31-73); PLATELET COUNT 187 x10^3/uL (140-400); RED BLOOD COUNT 4.44 x10^6/uL (3.50-5.40); RED CELL DISTRIBUTION WIDTH 13.3 % (11.5-14.5); WHITE BLOOD COUNT 10.4 x10^3/uL (4.0-11.0)
[2018-07-04 08:48] LABS: CALCIUM 8.6 mg/dL (8.5-10.1); CREATININE 0.6 mg/dL (0.6-1.0); GFR 121.8; POTASSIUM 3.9 mmol/L (3.5-5.1)
[2018-07-04 08:50] LABS: ALBUMIN 3.9 g/dL (3.4-5.0); ALBUMIN/GLOBULIN RATIO 1.3 (1.0-1.7); TOTAL BILIRUBIN 0.3 mg/dL (0.2-1.0); TOTAL PROTEIN 6.8 g/dL (6.4-8.2)
[2018-07-04 08:57] LABS: BARBITURATES NEG (NEG); BENZODIAZEPINES NEG (NEG); CANNABINOIDS POS (NEG); COCAINE NEG (NEG); METHADONE NEG (NEG); OPIATES NEG (NEG); PHENCYCLIDINE NEG (NEG)
[2018-07-04 09:05] LABS: AMPHETAMINE/METHAMPHETAMINE NEG (NEG)
--- NOTE | 2018-07-04 09:48 | RAD ---
EXAM: Frontal view of the chest, AP views of the abdomen in upright and supine positions. CLINICAL INDICATION: ABD PAIN, NAUSEA, VOMITING. HX CHRONIC ABD PAIN, CYCLICAL VOMITING SYNDROME COMPARISON: 01/22/2018 FINDINGS and IMPRESSION: The heart is not enlarged. Mediastinal and hilar contours are normal. No focal parenchymal airspace opacity. No pleural effusion or pneumothorax. No abnormal small or large bowel dilatation. Moderate colonic stool content. No abnormal soft tissue mass effect. No suspicious calcifications are seen. No free intraperitoneal gas. Right upper quadrant surgical clips are seen. IUD is seen within the pelvis. Electronically signed by: Lj Lemos MD (07/04/2018 9:45 AM) [id number]
[2018-07-04] MEDS ORDERED: METO10TA81 PO (10:29)
[2018-07-04 10:41] VITALS: BP 113/52
== END 2018-07-04 10:43 | disposition home or self-care (01) ==
LOC: ER 07:25
DX: G43.A0 Cyclical vomiting, in migraine, not intractable (principal); Z90.49 Acquired absence of other specified parts of digestive tract; Z91.018 Allergy to other foods
CPT/HCPCS: 36415; 74022; 80053; 80307; 81001; 81025; 83690; 85025; 96361; 96374; 96375; 99285; J1200; J1630; J2060; J2405; J7030; G0479

== ENCOUNTER 2018-07-09 09:04 | Emergency (ER) | payer BC ==
[~2018-07-09] VITALS: Ht 162.6 cm; Wt 61.2 kg
[2018-07-09] MEDS ORDERED: HALOPERIDOL LACTATE 5 MG/ML VIAL. IVP ONE ×3 (09:15→12:30)
[2018-07-09] MEDS ORDERED: IV NORMAL SALINE 1000ML BAG 1,000 ML IV ONE (09:15)
--- NOTE | 2018-07-09 09:33 | PHYS DOC ---
Past Medical History Past Medical History: Anxiety, Cyclic Vomiting, Other Additional Past Medical Histor: PANIC ATTACKS Past Surgical History: Cholecystectomy Alcohol Use: Occasionally Drug Use: Marijuana Adult General Chief Complaint Chief Complaint: NAUSEA/VOMITING/DIARRHA HPI HPI Patient is a 23 year old female with history of cyclic vomiting syndrome and daily marijuana use who presents with epigastric pain nausea vomiting multiple episodes since 3:00 this morning. Patient arrives by EMS. Reports dizziness. No fever chills, flank pain, chest pain shortness of breath. It contains bile and stomach contents. Patient has been evaluated in this emergency department multiple times for the same condition. She is not on any medications does not follow up with PCP or GI specialist due to lack of additional resources and health insurance.[] Review of Systems Review of Systems ROS as per HPI All other systems were reviewed and found to be within normal limits, except as documented in this note. Current Medications Current Medications Current Medications Medications (Trade) Dose Ordered Sig/Arnaldo Start Time Stop Time Status Last Admin Dose Admin Diphenhydramine HCl (Benadryl) 25 mg 1X ONCE 07/09/18 12:30 07/09/18 12:31 DC 07/09/18 12:29 25 MG Famotidine (Pepcid Vial) 20 mg 1X ONCE 07/09/18 12:30 07/09/18 12:31 DC 07/09/18 12:29 20 MG Haloperidol Lactate (Haldol Inj) 2.5 mg 1X ONCE 07/09/18 12:30 07/09/18 12:31 DC 07/09/18 12:29 2.5 MG Lorazepam (Ativan) 1 mg 1X ONCE 07/09/18 09:15 07/09/18 09:24 DC 07/09/18 09:51 1 MG Ondansetron HCl (Zofran Odt) 4 mg 1X ONCE 07/09/18 14:15 07/09/18 14:17 DC Sodium Chloride 1,000 ml @ 1,000 mls/hr 1X ONCE 07/09/18 09:15 07/09/18 10:14 DC 07/09/18 09:47 1,000 MLS/HR Allergies Allergies Allergies Coded Allergies Type Severity Reaction Last Updated Verified coconut Allergy Severe Anaphylaxis 01/22/17 Yes Physical Exam Physical Exam Constitutional: Well developed, well nourished, no acute distress, non-toxic appearance. [] HENT: Normocephalic, atraumatic, bilateral external ears normal, oropharynx moist, nose normal. [] Eyes: PERRLA, EOMI, conjunctiva normal. [] Neck: Normal range of motion, no tenderness. [] Cardiovascular:Heart rate regular rhythm, no murmur [] Lungs & Thorax: Bilateral breath sounds clear to auscultation [] Abdomen: Bowel sounds normal, soft. [] Skin: Warm, dry, no erythema, no rash. [] Back: No tenderness. [] Extremities: No tenderness, no cyanosis, no clubbing, ROM intact, no edema. [] Neurologic: Alert and oriented X 3, normal motor function, normal sensory function, no focal deficits noted. [] Psychologic: Affect normal, judgement normal, mood normal. [] Current Patient Data Vital Signs Vital Signs Date Time Temp Pulse Resp B/P (MAP) Pulse Ox O2 Delivery O2 Flow Rate FiO2 07/09/18 13:37 108 18 131/82 (98) 97 Room Air Lab Values Laboratory Tests Test 07/09/18 09:20 07/09/18 09:35 07/09/18 09:45 07/09/18 10:15 Urine Collection Type Unknown Urine Color Yellow Urine Clarity Cloudy Urine pH 5.5 Urine Specific [place] 1.025 Urine Protein Negative mg/dL (NEG-TRACE) Urine Glucose (UA) Negative mg/dL (NEG) Urine Ketones (Stick) Negative mg/dL (NEG) Urine Blood Negative (NEG) Urine Nitrite Negative (NEG) Urine Bilirubin Negative (NEG) Urine Urobilinogen Dipstick 0.2 mg/dL (0.2 mg/dL) Urine Leukocyte Esterase Large (NEG) Urine RBC Rare /HPF (0-2) Urine WBC 1-4 /HPF (0-4) Urine Squamous Epithelial Cells Many /LPF Urine Bacteria Few /HPF (0-FEW) POC Urine HCG, Qualitative Hcg negative (Negative) White Blood Count 9.4 x10^3/uL (4.0-11.0) Red Blood Count 5.04 x10^6/uL (3.50-5.40) Hemoglobin 15.7 g/dL (12.0-15.5) H Hematocrit 45.6 % (36.0-47.0) Mean Corpuscular Volume 90 fL (79-100) Mean Corpuscular Hemoglobin 31 pg (25-35) Mean Corpuscular Hemoglobin Concent 34 g/dL (31-37) Red Cell Distribution Width 13.0 % (11.5-14.5) Platelet Count 162 x10^3/uL (140-400) Neutrophils (%) (Auto) 68 % (31-73) Lymphocytes (%) (Auto) 25 % (24-48) Monocytes (%) (Auto) 7 % (0-9) Eosinophils (%) (Auto) 1 % (0-3) Basophils (%) (Auto) 0 % (0-3) Neutrophils # (Auto) 6.4 x10^3uL (1.8-7.7) Lymphocytes # (Auto) 2.3 x10^3/uL (1.0-4.8) Monocytes # (Auto) 0.6 x10^3/uL (0.0-1.1) Eosinophils # (Auto) 0.1 x10^3/uL (0.0-0.7) Basophils # (Auto) 0.0 x10^3/uL (0.0-0.2) Sodium Level 139 mmol/L (136-145) Potassium Level 3.6 mmol/L (3.5-5.1) Chloride Level 104 mmol/L (98-107) Carbon Dioxide Level 20 mmol/L (21-32) L Anion Gap 15 (6-14) H Blood Urea Nitrogen 8 mg/dL (7-20) Creatinine 0.7 mg/dL (0.6-1.0) Estimated GFR (Cockcroft-Gault) 102.0 BUN/Creatinine Ratio 11 (6-20) Glucose Level 153 mg/dL (70-99) H Calcium Level 9.1 mg/dL (8.5-10.1) Total Bilirubin 0.5 mg/dL (0.2-1.0) Aspartate Amino Transferase (AST) 16 U/L (15-37) Alanine Aminotransferase (ALT) 17 U/L (14-59) Alkaline Phosphatase 65 U/L (46-116) Total Protein 7.9 g/dL (6.4-8.2) Albumin 4.1 g/dL (3.4-5.0) Albumin/Globulin Ratio 1.1 (1.0-1.7) Lipase 181 U/L (73-393) Laboratory Tests 07/09/18 09:45 Laboratory Tests 07/09/18 10:15 EKG EKG [] Radiology/Procedures Radiology/Procedures [] Course & Med Decision Making Course & Med Decision Making Pertinent Labs and Imaging studies reviewed. (See chart for details) [Patient's symptoms improved gradually with repeat treatment in the emergency department. She tolerates oral intake PTD. Unfortunately, this is a chronic ongoing process which patient has been treated multiple times in 4 in the emergency department. She does not follow up nor take medications as previously prescribed. Continues to smoke marijuana. As such prognosis is poor.] Dragon Disclaimer Dragon Disclaimer This electronic medical record was generated, in whole or in part, using a voice recognition dictation system. Departure Departure Impression: Primary Impression: Cyclic vomiting syndrome Disposition: 01 HOME, SELF-CARE Condition: GOOD Referrals: NO PCP (PCP) Patient Instructions: Abdominal Pain Scripts Promethazine Hcl (PROMETHAZINE HCL) 25 Mg Tablet 1 TAB PO PRN Q6HRS, #10 TAB Prov: JENNA DEVRIES DO 07/09/18 JENNA DEVRIES DO Jul 09, 2018 09:33
[2018-07-09 09:43] LABS: BILIRUBIN,URINE NEGATIVE (NEG); CLARITY,URINE CLOUDY; COLOR,URINE YELLOW; NITRITE,URINE NEGATIVE (NEG); PH,URINE 5.5; PROTEIN,URINE NEGATIVE (NEG-TRACE); UROBILINOGEN,URINE 0.2 mg/dL (0.2 mg/dL)
[2018-07-09 09:54] LABS: BASO % 0 % (0-3); EOS # 0.1 x10^3/uL (0.0-0.7); EOS % 1 % (0-3); HEMATOCRIT 45.6 % (36.0-47.0); HEMOGLOBIN 15.7 g/dL (12.0-15.5); LYMPH # 2.3 x10^3/uL (1.0-4.8); LYMPH % 25 % (24-48); MEAN CORPUSCULAR HEMOGLOBIN 31 pg (25-35); MEAN CORPUSCULAR HGB CONC 34 g/dL (31-37); MEAN CORPUSCULAR VOLUME 90 fL (79-100); MONO # 0.6 x10^3/uL (0.0-1.1); MONO % 7 % (0-9); NEUT # 6.4 x10^3uL (1.8-7.7); NEUT % 68 % (31-73); PLATELET COUNT 162 x10^3/uL (140-400); RED BLOOD COUNT 5.04 x10^6/uL (3.50-5.40); WHITE BLOOD COUNT 9.4 x10^3/uL (4.0-11.0)
[2018-07-09 09:59] LABS: BACTERIA,URINE FEW /HPF (0-FEW); RBC,URINE RARE /HPF (0-2); SQUAMOUS EPITHELIAL CELL,UR MANY /LPF
[2018-07-09 10:39] LABS: CALCIUM 9.1 mg/dL (8.5-10.1); CREATININE 0.7 mg/dL (0.6-1.0); POTASSIUM 3.6 mmol/L (3.5-5.1)
[2018-07-09 10:44] LABS: ALBUMIN 4.1 g/dL (3.4-5.0); ALBUMIN/GLOBULIN RATIO 1.1 (1.0-1.7); TOTAL BILIRUBIN 0.5 mg/dL (0.2-1.0); TOTAL PROTEIN 7.9 g/dL (6.4-8.2)
[2018-07-09] MEDS ORDERED: FAMOTIDINE 20 MG/2 ML VIAL IVP ONE (12:30)
[2018-07-09] MEDS ORDERED: diphenhydrAMINE 50 MG/ML VIAL IVP ONE (12:30)
[2018-07-09 14:07] VITALS: BP 126/79
[2018-07-09] MEDS: ONDANSETRON ODT 4 MG TAB.RAPDIS. PO ONE ×2 (14:15→14:31)
[2018-07-09] MEDS ORDERED: PROM25TA10 PO (14:20)
== END 2018-07-09 14:35 | disposition home or self-care (01) ==
LOC: ER 09:04
DX: K31.89 Other diseases of stomach and duodenum (principal); R11.2 Nausea with vomiting, unspecified; F41.9 Anxiety disorder, unspecified; F12.10 Cannabis abuse, uncomplicated; Z90.49 Acquired absence of other specified parts of digestive tract; Z91.018 Allergy to other foods
CPT/HCPCS: 36415; 80053; 81001; 81025; 83690; 85025; 96361; 96374; 96375; 96376; 99284; J1200; J1630; J2060; J7030; S0028; Q0162

== ENCOUNTER 2018-07-12 12:17 | Emergency (ER) | payer BC ==
[~2018-07-12] VITALS: Ht 162.6 cm; Wt 61.2 kg
[~2018-07-12 12:17] MED LIST changes: +PROM25TA10 PO
[2018-07-12] MEDS: IV NORMAL SALINE 1000ML BAG 1,000 ML IV ONE ×2 (12:48→15:40)
[2018-07-12] MEDS: PROCHLORPERAZINE 10 MG/2 ML VIAL. IV ONE ×2 (12:49→15:41)
[2018-07-12] MEDS: diphenhydrAMINE 50 MG/ML VIAL IVP ONE ×2 (12:49→15:40)
--- NOTE | 2018-07-12 12:52 | PHYS DOC ---
Past Medical History Past Medical History: Anxiety, Cyclic Vomiting, Other Additional Past Medical Histor: PANIC ATTACKS Past Surgical History: Cholecystectomy Alcohol Use: Occasionally Drug Use: Marijuana Adult General Chief Complaint Chief Complaint: NAUSEA/VOMITING/DIARRHA HPI HPI Patient is a 23 year old female who presents with vomiting. states she has had vomiting over the last 12-18 hours. No fever or chills. No significant abdominal pain. The patient is very well-known to this emergency department. She presents about 5-7 times monthly with similar complaints. She was last seen in the ER 2 days earlier. She had lab panels and urinalysis that did not reveal any acute findings. She last underwent CT scan of the abdomen pelvis 15 days ago which was also normal. No new or different symptoms this visit. Review of Systems Review of Systems Constitutional: Denies fever Eyes: Denies change in visual acuity HENT: Denies Respiratory: Denies cough Cardiovascular: No additional information not addressed in HPI GI: as documented above : Denies dysuria Musculoskeletal: Denies back pain Integument: Denies rash or skin lesions Neurologic: Denies focal neuro complaints Endocrine: Denies polyuria All other systems were reviewed and found to be within normal limits, except as documented in this note. Current Medications Current Medications Current Medications Medications (Trade) Dose Ordered Sig/Arnaldo Start Time Stop Time Status Last Admin Dose Admin Diphenhydramine HCl (Benadryl) 25 mg 1X ONCE 07/12/18 15:30 07/12/18 15:31 DC 07/12/18 15:40 25 MG Lorazepam (Ativan) 1 mg 1X ONCE 07/12/18 15:30 07/12/18 15:31 DC 07/12/18 15:40 1 MG Ondansetron HCl (Zofran) 4 mg 1X ONCE 07/12/18 14:15 07/12/18 14:16 DC 07/12/18 14:23 4 MG Prochlorperazine Edisylate (Compazine) 10 mg 1X ONCE 07/12/18 15:30 07/12/18 15:31 DC 07/12/18 15:41 10 MG Sodium Chloride 1,000 ml @ 1,000 mls/hr 1X ONCE 07/12/18 15:30 07/12/18 16:29 07/12/18 15:40 1,000 MLS/HR Allergies Allergies Allergies Coded Allergies Type Severity Reaction Last Updated Verified coconut Allergy Severe Anaphylaxis 01/22/17 Yes Physical Exam Physical Exam Constitutional: Well developed, well nourished, actively vomiting clear, yellow gastric contents, non-toxic appearance HENT: Normocephalic, atraumatic, bilateral external ears normal, oropharynx moist Eyes: PERRLA, EOMI, conjunctiva normal Neck: Normal range of motion, no tenderness, supple Cardiovascular:Heart rate regular rhythm, no murmur Lungs & Thorax: Bilateral breath sounds clear to auscultation Abdomen: Bowel sounds normal, soft Skin: Warm, dry, no erythema, no rash Extremities: No edema Neurologic: Alert and oriented X 3 Psychologic: Affect normal Current Patient Data Vital Signs Vital Signs Date Time Temp Pulse Resp B/P (MAP) Pulse Ox O2 Delivery O2 Flow Rate FiO2 07/12/18 15:47 132 22 137/84 (101) 97 Room Air 07/12/18 12:38 98.2 98.2 Lab Values Laboratory Tests Test 07/12/18 12:30 07/12/18 12:40 Urine Collection Type Unknown Urine Color Yellow Urine Clarity Cloudy Urine pH 5.5 Urine Specific [place] 1.025 Urine Protein Negative mg/dL (NEG-TRACE) Urine Glucose (UA) Negative mg/dL (NEG) Urine Ketones (Stick) Trace mg/dL (NEG) Urine Blood Negative (NEG) Urine Nitrite Negative (NEG) Urine Bilirubin Negative (NEG) Urine Urobilinogen Dipstick 0.2 mg/dL (0.2 mg/dL) Urine Leukocyte Esterase Small (NEG) Urine RBC 0 /HPF (0-2) Urine WBC 0 /HPF (0-4) Urine Squamous Epithelial Cells Many /LPF Urine Bacteria Many /HPF (0-FEW) Urine Mucus Marked /LPF Sodium Level 139 mmol/L (136-145) Potassium Level 3.2 mmol/L (3.5-5.1) L Chloride Level 102 mmol/L (98-107) Carbon Dioxide Level 24 mmol/L (21-32) Anion Gap 13 (6-14) Blood Urea Nitrogen 10 mg/dL (7-20) Creatinine 0.7 mg/dL (0.6-1.0) Estimated GFR (Cockcroft-Gault) 102.0 Glucose Level 130 mg/dL (70-99) H Calcium Level 9.5 mg/dL (8.5-10.1) Laboratory Tests 07/12/18 12:40 EKG EKG [] Radiology/Procedures Radiology/Procedures [] Course & Med Decision Making Course & Med Decision Making Pertinent Labs and Imaging studies reviewed. (See chart for details) Patient is evaluated immediately on arrival to her room. I did review the patient's electronic medical record. This is a typical presentation. Plan will be to start an IV and give IV fluids and medications for symptom control. 16:20: Patient resting quietly with no emesis over the last two hours. She was given multiple doses of various antibiotics as well as Ativan in the emergency department which have relieved her symptoms. Patient is being discharged to home. She is encouraged once again to follow-up with a primary care doctor or return to the ER for any new or worsening symptoms. Dragon Disclaimer Dragon Disclaimer This electronic medical record was generated, in whole or in part, using a voice recognition dictation system. Departure Departure Referrals: NO PCP (PCP) Scripts Ondansetron (ZOFRAN ODT) 8 Mg Tab.rapdis 8 MG PO BID PRN for NAUSEA/VOMITING, #10 TAB Prov: ZEINAB PARKS DO 07/12/18 ZEINAB PARKS DO Jul 12, 2018 12:52
[2018-07-12 12:54] LABS: BILIRUBIN,URINE NEGATIVE (NEG); CLARITY,URINE CLOUDY; COLOR,URINE YELLOW; NITRITE,URINE NEGATIVE (NEG); PH,URINE 5.5; PROTEIN,URINE NEGATIVE (NEG-TRACE); UROBILINOGEN,URINE 0.2 mg/dL (0.2 mg/dL)
[2018-07-12 13:01] LABS: BACTERIA,URINE MANY /HPF (0-FEW); RBC,URINE 0 /HPF (0-2); SQUAMOUS EPITHELIAL CELL,UR MANY /LPF; WBC,URINE 0 /HPF (0-4)
[2018-07-12 13:09] LABS: CALCIUM 9.5 mg/dL (8.5-10.1); CREATININE 0.7 mg/dL (0.6-1.0); POTASSIUM 3.2 mmol/L (3.5-5.1)
[2018-07-12] MEDS: ONDANSETRON PF 4 MG/2 ML VIAL. IV ONE (14:23)
[2018-07-12] MEDS ORDERED: ONDA8TAB12 PO (16:12)
[2018-07-12 16:30] VITALS: BP 126/82
== END 2018-07-12 16:40 | disposition home or self-care (01) ==
LOC: ER 12:17
DX: R11.10 Vomiting, unspecified (principal); F41.9 Anxiety disorder, unspecified; Z90.49 Acquired absence of other specified parts of digestive tract; Z91.018 Allergy to other foods
CPT/HCPCS: 36415; 80048; 81001; 96361; 96374; 96375; 96376; 99285; J0780; J1200; J2060; J2405; J7030

== ENCOUNTER 2018-07-16 03:24 | Inpatient (IN) | payer BC ==
[~2018-07-16] VITALS: Ht 162.6 cm; Wt 60.9 kg
[~2018-07-16 03:24] MED LIST changes: +ONDA8TAB12 PO
[2018-07-16] MEDS ORDERED: PROCHLORPERAZINE 10 MG/2 ML VIAL. IV ONE (04:00)
[2018-07-16] MEDS ORDERED: diphenhydrAMINE 50 MG/ML VIAL IVP ONE (04:00)
[2018-07-16] MEDS ORDERED: IV NORMAL SALINE 1000ML BAG 1,000 ML IV ONE ×3 (04:00→07:15)
--- NOTE | 2018-07-16 04:00 | PHYS DOC ---
Past Medical History Past Medical History: Anxiety, Cyclic Vomiting, Other Additional Past Medical Histor: PANIC ATTACKS, CYCLIC VOMITING Past Surgical History: Cholecystectomy Alcohol Use: Occasionally Drug Use: Marijuana Adult General Chief Complaint Chief Complaint: NAUSEA/VOMITING/DIARRHA HPI HPI Patient is a 23 year old female who presents with nausea and vomiting. Patient is well-known to myself and the ER. She frequently presents with vomiting and does carry a diagnosis of cyclic vomiting syndrome. Today, she presents in her usual fashion with active nausea and vomiting. The patient denies any significant abdominal pain. No fever. She states she is unable to hold down any food or fluids. Review of Systems Review of Systems Constitutional: Denies fever or chills Eyes: Denies change in visual acuity HENT: Denies nasal congestion Respiratory: Denies cough or shortness of breath GI: Denies abdominal pain : Denies dysuria Musculoskeletal: Denies back pain Integument: Denies rash Neurologic: Denies headache All other systems were reviewed and found to be within normal limits, except as documented in this note. Current Medications Current Medications Current Medications Medications (Trade) Dose Ordered Sig/Arnaldo Start Time Stop Time Status Last Admin Dose Admin Diphenhydramine HCl (Benadryl) 25 mg 1X ONCE 07/16/18 04:00 07/16/18 04:01 DC 07/16/18 04:10 25 MG Famotidine (Pepcid Vial) 20 mg 1X ONCE 07/16/18 05:00 07/16/18 05:01 DC 07/16/18 05:29 20 MG Lorazepam (Ativan) 2 mg 1X ONCE 07/16/18 05:30 07/16/18 05:31 DC 07/16/18 05:29 2 MG Prochlorperazine Edisylate (Compazine) 10 mg 1X ONCE 07/16/18 04:00 07/16/18 04:01 DC 07/16/18 04:10 10 MG Sodium Chloride 1,000 ml @ 1,000 mls/hr 1X ONCE 07/16/18 04:00 07/16/18 04:59 DC 07/16/18 04:09 1,000 MLS/HR Allergies Allergies Allergies Coded Allergies Type Severity Reaction Last Updated Verified coconut Allergy Severe Anaphylaxis 01/22/17 Yes Physical Exam Physical Exam Constitutional: Well developed, well nourished, actively heaving HENT: Normocephalic, atraumatic, bilateral external ears normal, oropharynx moist Eyes: PERRLA, EOMI, conjunctiva normal, no discharge Neck: Normal range of motion Cardiovascular:Heart rate regular rhythm, no murmur Lungs & Thorax: Bilateral breath sounds clear to auscultation Abdomen: Bowel sounds normal, soft, no tenderness Skin: Warm, dry, no erythema Back: No tenderness Neurologic: Alert and oriented X 3 Psychologic: Affect normal Current Patient Data Vital Signs Vital Signs Date Time Temp Pulse Resp B/P (MAP) Pulse Ox O2 Delivery O2 Flow Rate FiO2 07/16/18 05:39 124 20 96 Room Air 07/16/18 03:26 97.7 124/56 (78) 97.7 Lab Values Laboratory Tests Test 07/16/18 03:32 07/16/18 03:45 POC Urine HCG, Qualitative Hcg negative (Negative) Sodium Level 141 mmol/L (136-145) Potassium Level 3.7 mmol/L (3.5-5.1) Chloride Level 102 mmol/L (98-107) Carbon Dioxide Level 25 mmol/L (21-32) Anion Gap 14 (6-14) Blood Urea Nitrogen 13 mg/dL (7-20) Creatinine 0.8 mg/dL (0.6-1.0) Estimated GFR (Cockcroft-Gault) 87.4 Glucose Level 130 mg/dL (70-99) H Calcium Level 9.8 mg/dL (8.5-10.1) Laboratory Tests 07/16/18 03:45 EKG EKG [] Radiology/Procedures Radiology/Procedures [] Course & Med Decision Making Course & Med Decision Making Pertinent Labs and Imaging studies reviewed. (See chart for details) Patient is seen and examined on arrival. Actively heaving. Otherwise benign exam. Medications ordered for symptom control. 05:55: Patient resents frequently for this complaint. She was last discharged from inpatient on the 10th of this month. She has had 4 visits since then for nausea and vomiting. Her workups are generally speaking negative. This evening, her labs are not abnormal. She has had large doses of Ativan as well as other medications for nausea. Currently, the patient has not had additional emesis since admission. Her IV fluids are care home completed. She does continue to be tachycardic with a heart rate of 116. Plan is to complete IV fluids and reassess heart rate and discharge the patient to home. If her heart rate does not improve or her symptoms continue, the patient can be admitted to the hospitalist service. As a rule, I do not give this patient opiate medications for her nausea and vomiting although she does request them frequently during her visits. Transfer of care to Dr. Cabrera. (please f/u on symptom control and vitals. pt can be d/c'd to home) Ce Disclaimer Ce Disclaimer This electronic medical record was generated, in whole or in part, using a voice recognition dictation system. Departure Departure Referrals: NO PCP (PCP) ZEINAB PARKS DO Jul 16, 2018 04:00
[2018-07-16 04:08] LABS: CALCIUM 9.8 mg/dL (8.5-10.1); CREATININE 0.8 mg/dL (0.6-1.0); GFR 87.4; POTASSIUM 3.7 mmol/L (3.5-5.1)
[2018-07-16] MEDS ORDERED: FAMOTIDINE 20 MG/2 ML VIAL IVP ONE (05:00)
[2018-07-16] MEDS ORDERED: METOCLOPRAMIDE HCL 10 MG/2 ML VIAL. IV ONE (07:45)
[2018-07-16 07:52] LABS: BASO # 0.1 x10^3/uL (0.0-0.2); BASO % 1 % (0-3); EOS # 0.2 x10^3/uL (0.0-0.7); EOS % 2 % (0-3); HEMATOCRIT 42.7 % (36.0-47.0); HEMOGLOBIN 14.5 g/dL (12.0-15.5); LYMPH # 3.1 x10^3/uL (1.0-4.8); LYMPH % 28 % (24-48); MEAN CORPUSCULAR HEMOGLOBIN 31 pg (25-35); MEAN CORPUSCULAR HGB CONC 34 g/dL (31-37); MEAN CORPUSCULAR VOLUME 90 fL (79-100); MONO # 0.7 x10^3/uL (0.0-1.1); MONO % 6 % (0-9); NEUT # 7.1 x10^3uL (1.8-7.7); NEUT % 63 % (31-73); PLATELET COUNT 239 x10^3/uL (140-400); RED BLOOD COUNT 4.77 x10^6/uL (3.50-5.40); RED CELL DISTRIBUTION WIDTH 13.1 % (11.5-14.5); WHITE BLOOD COUNT 11.2 x10^3/uL (4.0-11.0)
[2018-07-16] MEDS ORDERED: ACETAMINOPHEN 325 MG TABLET. PO PRN ×2 (08:15→13:00)
[2018-07-16] MEDS ORDERED: ONDANSETRON PF 4 MG/2 ML VIAL. IV PRN ×2 (08:15→13:00)
[2018-07-16 11:00] VITALS: BP 137/84
[2018-07-16] MEDS: LORazepam 0.5 MG TABLET PO PRN (13:01)
[2018-07-16 15:00] VITALS: BP 155/86
[2018-07-16] MEDS: ZOLPIDEM 5 MG TABLET. PO ONE ×2 (18:45→19:43)
[2018-07-16 19:00] VITALS: BP 126/78
[2018-07-16] MEDS: FAMOTIDINE 20 MG TABLET. PO SCH ×2 (19:43→19:59)
[2018-07-16] MEDS: FAMOTIDINE 20 MG/2 ML VIAL IVP SCH (20:46)
[2018-07-16] MEDS: METOCLOPRAMIDE HCL 10 MG/2 ML VIAL. IV PRN (20:46)
[2018-07-16] MEDS: IV NORMAL SALINE 1000ML BAG 1,000 ML IV SCH (20:47)
[2018-07-16] MEDS ORDERED: ZOLPIDEM 5 MG TABLET. PO ONE (21:15)
[2018-07-16 23:00] VITALS: BP 116/78
[2018-07-16] MEDS ORDERED: oxyCODONE/APAP 5/325 1 TAB TABLET PO ONE (23:00)
--- NOTE | 2018-07-16 23:05 | PDOC1 ---
History and Physical History of Present Illness History of Present Illness HPI per ED Patient is a 23 year old female who presents with nausea and vomiting. Patient is well-known to myself and the ER. She frequently presents with vomiting and does carry a diagnosis of cyclic vomiting syndrome. Today, she presents in her usual fashion with active nausea and vomiting. The patient denies any significant abdominal pain. No fever. She states she is unable to hold down any food or fluids. Per my exam pt is ambulating in the hallway - appears comfortable C/o nausea on my eval which causes abdominal pain Past Medical History Cardiovascular: No pertinent hx Pulmonary: No pertinent hx GI: Other Heme/Onc: No pertinent hx Psych: Anxiety, Addictions, Panic Rheumatologic: No pertinent hx Endocrine: No pertinent hx, Other Past Surgical History Past Surgical History: Cholecystectomy Family History Family History: Diabetes, Heart Disease, Other Family History: Grandparents Social History ALCOHOL: social Drugs: Marijuana Current Problem List Problem List Problems Medical Problems: (1) Cyclic vomiting syndrome Status: Acute Current Medications Current Medications Current Medications Medications (Trade) Dose Ordered Sig/Arnaldo Start Time Stop Time Status Last Admin Dose Admin Acetaminophen (Tylenol) 650 mg PRN Q6HRS PRN 07/16/18 13:00 Diphenhydramine HCl (Benadryl) 25 mg 1X ONCE 07/16/18 04:00 07/16/18 04:01 DC 07/16/18 04:10 25 MG Famotidine (Pepcid Vial) 20 mg BID 07/16/18 21:00 07/16/18 20:46 20 MG Famotidine (Pepcid) 20 mg BID 07/16/18 21:00 07/16/18 21:00 DC Lorazepam (Ativan) 0.5 mg PRN Q8HRS PRN 07/16/18 13:00 07/16/18 13:01 0.5 MG Metoclopramide HCl (Reglan Vial) 5 mg PRN Q8HRS PRN 07/16/18 20:30 07/16/18 20:46 5 MG Ondansetron HCl (Zofran) 4 mg PRN Q8HRS PRN 07/16/18 13:00 Oxycodone/ Acetaminophen (Percocet 5/325) 1 tab 1X ONCE 07/16/18 23:00 07/16/18 23:01 DC 07/16/18 22:34 1 TAB Prochlorperazine Edisylate (Compazine) 10 mg 1X ONCE 07/16/18 04:00 07/16/18 04:01 DC 07/16/18 04:10 10 MG Sodium Chloride 1,000 ml @ 75 mls/hr [id number] 07/16/18 20:30 07/16/18 20:47 75 MLS/HR Zolpidem Tartrate (Ambien) 5 mg 1X ONCE 07/16/18 21:15 07/16/18 21:16 DC 07/16/18 21:02 5 MG Allergies Allergies Allergies Coded Allergies Type Severity Reaction Last Updated Verified coconut Allergy Severe Anaphylaxis 01/22/17 Yes ROS Review of System CONSTITUTIONAL: No fever or chills EYES: No recent changes SKIN: No rash or itching CARDIOVASCULAR: No chest pain, syncope, palpitations, or edema RESPIRATORY: No SOB or cough GASTROINTESTINAL: No nausea, vomiting or abdominal pain NEUROLOGICAL: No headaches or weakness ENDOCRINE: No cold or heat intolerance GENITOURINARY: No urgency or frequency of urination MUSCULOSKELETAL: No back pain or joint pain LYMPHATICS: No enlarged lymph nodes PSYCHIATRIC: No anxiety or depression Physical Exam Physical Exam GEN.: No apparent distress. Alert and oriented. HEENT: Head is normocephalic, atraumatic NECK: Supple. LUNGS: Clear to auscultation. HEART: RRR, S1, S2 present. Peripheral pulses intact ABDOMEN: Soft, nontender. Positive bowel sounds. EXTREMITIES: Without any cyanosis. NEUROLOGIC: Normal speech, normal tone PSYCHIATRIC: Normal affect, normal mood. SKIN: No ulcerations Vitals Vitals Vital Signs Date Time Temp Pulse Resp B/P (MAP) Pulse Ox O2 Delivery O2 Flow Rate FiO2 07/16/18 22:34 20 95 Room Air 07/16/18 19:00 96.6 98 126/78 (94) 96.6 Labs Labs Laboratory Tests Test 07/16/18 03:32 07/16/18 03:45 07/16/18 13:20 Bedside Urine HCG, Qualitative Hcg negative (Negative) White Blood Count 11.2 x10^3/uL (4.0-11.0) Red Blood Count 4.77 x10^6/uL (3.50-5.40) Hemoglobin 14.5 g/dL (12.0-15.5) Hematocrit 42.7 % (36.0-47.0) Mean Corpuscular Volume 90 fL (79-100) Mean Corpuscular Hemoglobin 31 pg (25-35) Mean Corpuscular Hemoglobin Concent 34 g/dL (31-37) Red Cell Distribution Width 13.1 % (11.5-14.5) Platelet Count 239 x10^3/uL (140-400) Neutrophils (%) (Auto) 63 % (31-73) Lymphocytes (%) (Auto) 28 % (24-48) Monocytes (%) (Auto) 6 % (0-9) Eosinophils (%) (Auto) 2 % (0-3) Basophils (%) (Auto) 1 % (0-3) Neutrophils # (Auto) 7.1 x10^3uL (1.8-7.7) Lymphocytes # (Auto) 3.1 x10^3/uL (1.0-4.8) Monocytes # (Auto) 0.7 x10^3/uL (0.0-1.1) Eosinophils # (Auto) 0.2 x10^3/uL (0.0-0.7) Basophils # (Auto) 0.1 x10^3/uL (0.0-0.2) Sodium Level 141 mmol/L (136-145) Potassium Level 3.7 mmol/L (3.5-5.1) Chloride Level 102 mmol/L (98-107) Carbon Dioxide Level 25 mmol/L (21-32) Anion Gap 14 (6-14) Blood Urea Nitrogen 13 mg/dL (7-20) Creatinine 0.8 mg/dL (0.6-1.0) Estimated GFR (Cockcroft-Gault) 87.4 Glucose Level 130 mg/dL (70-99) Calcium Level 9.8 mg/dL (8.5-10.1) Lactic Acid Level 1.5 mmol/L (0.4-2.0) Laboratory Tests Test 07/16/18 03:32 07/16/18 03:45 07/16/18 13:20 Bedside Urine HCG, Qualitative Hcg negative (Negative) White Blood Count 11.2 x10^3/uL (4.0-11.0) Red Blood Count 4.77 x10^6/uL (3.50-5.40) Hemoglobin 14.5 g/dL (12.0-15.5) Hematocrit 42.7 % (36.0-47.0) Mean Corpuscular Volume 90 fL (79-100) Mean Corpuscular Hemoglobin 31 pg (25-35) Mean Corpuscular Hemoglobin Concent 34 g/dL (31-37) Red Cell Distribution Width 13.1 % (11.5-14.5) Platelet Count 239 x10^3/uL (140-400) Neutrophils (%) (Auto) 63 % (31-73) Lymphocytes (%) (Auto) 28 % (24-48) Monocytes (%) (Auto) 6 % (0-9) Eosinophils (%) (Auto) 2 % (0-3) Basophils (%) (Auto) 1 % (0-3) Neutrophils # (Auto) 7.1 x10^3uL (1.8-7.7) Lymphocytes # (Auto) 3.1 x10^3/uL (1.0-4.8) Monocytes # (Auto) 0.7 x10^3/uL (0.0-1.1) Eosinophils # (Auto) 0.2 x10^3/uL (0.0-0.7) Basophils # (Auto) 0.1 x10^3/uL (0.0-0.2) Sodium Level 141 mmol/L (136-145) Potassium Level 3.7 mmol/L (3.5-5.1) Chloride Level 102 mmol/L (98-107) Carbon Dioxide Level 25 mmol/L (21-32) Anion Gap 14 (6-14) Blood Urea Nitrogen 13 mg/dL (7-20) Creatinine 0.8 mg/dL (0.6-1.0) Estimated GFR (Cockcroft-Gault) 87.4 Glucose Level 130 mg/dL (70-99) Calcium Level 9.8 mg/dL (8.5-10.1) Lactic Acid Level 1.5 mmol/L (0.4-2.0) VTE Prophylaxis Ordered VTE Prophylaxis Devices: No VTE Pharmacological Prophylaxi: Yes Assessment/Plan Assessment/Plan GI c/s IVF LA Ativan prn Anti - nausea meds BARRY GRAY MD Jul 16, 2018 23:05
[2018-07-17 03:00] VITALS: BP 98/51
[2018-07-17] MEDS: LORazepam 0.5 MG TABLET PO PRN ×3 (04:39→20:19)
[2018-07-17] MEDS: METOCLOPRAMIDE HCL 10 MG/2 ML VIAL. IV PRN ×2 (04:41→15:26)
[2018-07-17 07:00] VITALS: BP 111/74
[2018-07-17] MEDS: FAMOTIDINE 20 MG/2 ML VIAL IVP SCH ×2 (08:54→20:19)
[2018-07-17] MEDS: IV NORMAL SALINE 1000ML BAG 1,000 ML IV SCH ×2 (09:50→23:44)
[2018-07-17 11:00] VITALS: BP 125/74
--- NOTE | 2018-07-17 11:47 | PDOC2 ---
CONSULT Date of Consult Date of Consult DATE: 07/17/18 TIME: 11:45 Reason for Consult Reason for Consult: Abd pain/cyclic vomiting Past Medical History Cardiovascular: No pertinent hx Pulmonary: No pertinent hx GI: Other Heme/Onc: No pertinent hx Psych: Anxiety, Addictions, Panic Rheumatologic: No pertinent hx Endocrine: No pertinent hx, Other Past Surgical History Past Surgical History: Cholecystectomy Family History Family History: Diabetes, Heart Disease, Other Social History Social History: Grandparents ALCOHOL: social Drugs: Marijuana Current Problem List Problem List Problems Medical Problems: (1) Cyclic vomiting syndrome Status: Acute Current Medications Current Medications Current Medications Lorazepam (Ativan) 1 mg 1X ONCE IV Last administered on 07/16/18at 04:09; Start 07/16/18 at 04:00; Stop 07/16/18 at 04:01; Status DC Prochlorperazine Edisylate (Compazine) 10 mg 1X ONCE IV Last administered on at 04:10; Start 07/16/18 at 04:00; Stop 07/16/18 at 04:01; Status DC Diphenhydramine HCl (Benadryl) 25 mg 1X ONCE IVP Last administered on at 04:10; Start 07/16/18 at 04:00; Stop 07/16/18 at 04:01; Status DC Sodium Chloride 1,000 ml @ 1,000 mls/hr 1X ONCE IV Last administered on at 04:09; Start 07/16/18 at 04:00; Stop 07/16/18 at 04:59; Status DC Famotidine (Pepcid Vial) 20 mg 1X ONCE IVP Last administered on 07/16/18at 05: 29; Start 07/16/18 at 05:00; Stop 07/16/18 at 05:01; Status DC Lorazepam (Ativan) 2 mg 1X ONCE IV Last administered on 07/16/18at 05:29; Start 07/16/18 at 05:30; Stop 07/16/18 at 05:31; Status DC Sodium Chloride 1,000 ml @ 1,000 mls/hr 1X ONCE IV Last administered on at 07:02; Start 07/16/18 at 06:30; Stop 07/16/18 at 07:29; Status DC Sodium Chloride 1,000 ml @ 1,000 mls/hr 1X ONCE IV ; Start 07/16/18 at 07:15; Stop 07/16/18 at 08:14; Status DC Metoclopramide HCl (Reglan Vial) 10 mg 1X ONCE IV Last administered on at 07:57; Start 07/16/18 at 07:45; Stop 07/16/18 at 07:46; Status DC Ondansetron HCl (Zofran) 4 mg PRN Q8HRS PRN IV NAUSEA/VOMITING Last administered on 07/16/18at 09:17; Start 07/16/18 at 08:15; Stop 07/17/18 at 08:14 ; Status DC Acetaminophen (Tylenol) 650 mg PRN Q4HRS PRN PO FEVER Last administered on 07/16at 13:01; Start 07/16/18 at 08:15; Stop 07/16/18 at 22:22; Status DC Acetaminophen (Tylenol) 650 mg PRN Q6HRS PRN PO pain; Start 07/16/18 at 13:00 Lorazepam (Ativan) 0.5 mg PRN Q8HRS PRN PO ANXIETY / AGITATION Last administered on 07/17/18at 04:39; Start 07/16/18 at 13:00 Famotidine (Pepcid) 20 mg BID PO ; Start 07/16/18 at 21:00; Stop 07/16/18 at 21: 00; Status DC Ondansetron HCl (Zofran) 4 mg PRN Q8HRS PRN IV NAUSEA/VOMITING 1ST CHOICE; Start 07/16/18 at 13:00 Zolpidem Tartrate (Ambien) 5 mg 1X ONCE PO ; Start 07/16/18 at 18:45; Stop at 18:50; Status DC Famotidine (Pepcid Vial) 20 mg BID IVP Last administered on 07/17/18at 08:54; Start 07/16/18 at 21:00 Metoclopramide HCl (Reglan Vial) 5 mg PRN Q8HRS PRN IV NAUSEA/VOMITING 2ND CHOICE Last administered on 07/17/18at 04:41; Start 07/16/18 at 20:30 Sodium Chloride 1,000 ml @ 75 mls/hr [id number] IV Last administered on at 20:47; Start 07/16/18 at 20:30 Zolpidem Tartrate (Ambien) 5 mg 1X ONCE PO Last administered on 07/16/18at 21: 02; Start 07/16/18 at 21:15; Stop 07/16/18 at 21:16; Status DC Oxycodone/ Acetaminophen (Percocet 5/325) 1 tab 1X ONCE PO Last administered on 07/16/18at 22:34; Start 07/16/18 at 23:00; Stop 07/16/18 at 23:01; Status DC Active Scripts Active Zofran Odt (Ondansetron) 8 Mg Tab.rapdis 8 Mg PO BID PRN Promethazine Hcl 25 Mg Tablet 1 Tab PO PRN Q6HRS Reglan (Metoclopramide Hcl) 10 Mg Tablet 10 Mg PO QIDACHS PRN Reported [no home medicatiion] Allergies Allergies: Coded Allergies: coconut (Verified Allergy, Severe, Anaphylaxis, 01/22/17) rash, hives, throat sweeling Vitals VITALS Vital Signs Date Time Temp Pulse Resp B/P (MAP) Pulse Ox O2 Delivery O2 Flow Rate FiO2 07/17/18 07:30 Room Air 07/17/18 07:00 98.1 99 18 111/74 (86) 97 98.1 Labs Labs Laboratory Tests Test 07/16/18 03:32 07/16/18 03:45 07/16/18 13:20 07/16/18 22:45 Bedside Urine HCG, Qualitative Hcg negative (Negative) White Blood Count 11.2 x10^3/uL (4.0-11.0) Red Blood Count 4.77 x10^6/uL (3.50-5.40) Hemoglobin 14.5 g/dL (12.0-15.5) Hematocrit 42.7 % (36.0-47.0) Mean Corpuscular Volume 90 fL (79-100) Mean Corpuscular Hemoglobin 31 pg (25-35) Mean Corpuscular Hemoglobin Concent 34 g/dL (31-37) Red Cell Distribution Width 13.1 % (11.5-14.5) Platelet Count 239 x10^3/uL (140-400) Neutrophils (%) (Auto) 63 % (31-73) Lymphocytes (%) (Auto) 28 % (24-48) Monocytes (%) (Auto) 6 % (0-9) Eosinophils (%) (Auto) 2 % (0-3) Basophils (%) (Auto) 1 % (0-3) Neutrophils # (Auto) 7.1 x10^3uL (1.8-7.7) Lymphocytes # (Auto) 3.1 x10^3/uL (1.0-4.8) Monocytes # (Auto) 0.7 x10^3/uL (0.0-1.1) Eosinophils # (Auto) 0.2 x10^3/uL (0.0-0.7) Basophils # (Auto) 0.1 x10^3/uL (0.0-0.2) Sodium Level 141 mmol/L (136-145) Potassium Level 3.7 mmol/L (3.5-5.1) Chloride Level 102 mmol/L (98-107) Carbon Dioxide Level 25 mmol/L (21-32) Anion Gap 14 (6-14) Blood Urea Nitrogen 13 mg/dL (7-20) Creatinine 0.8 mg/dL (0.6-1.0) Estimated GFR (Cockcroft-Gault) 87.4 Glucose Level 130 mg/dL (70-99) Calcium Level 9.8 mg/dL (8.5-10.1) Lactic Acid Level 1.5 mmol/L (0.4-2.0) 0.8 mmol/L (0.4-2.0) Laboratory Tests Test 07/16/18 13:20 07/16/18 22:45 Lactic Acid Level 1.5 mmol/L (0.4-2.0) 0.8 mmol/L (0.4-2.0) Assessment/Plan Assessment/Plan Abd pain- with cyclic vomiting s/p enzo, medical tehrapy KUB to assess for obstruction/free air Full note dictated LUIS F HO MD Jul 17, 2018 11:47
[2018-07-17] MEDS: oxyCODONE/APAP 5/325 1 TAB TABLET PO PRN ×3 (12:08→21:08)
[2018-07-17 12:23] LABS: CALCIUM 9.5 mg/dL (8.5-10.1); CREATININE 0.7 mg/dL (0.6-1.0); POTASSIUM 3.8 mmol/L (3.5-5.1)
[2018-07-17 12:24] LABS: ALBUMIN 4.2 g/dL (3.4-5.0); ALBUMIN/GLOBULIN RATIO 1.2 (1.0-1.7); TOTAL BILIRUBIN 1.1 mg/dL (0.2-1.0); TOTAL PROTEIN 7.7 g/dL (6.4-8.2)
[2018-07-17 15:00] VITALS: BP 130/69
--- NOTE | 2018-07-17 17:15 | RAD ---
Examination: Single frontal view of the abdomen COMPARISON: 07/04/2018 HISTORY: Abdominal pain, vomiting FINDINGS: Cholecystectomy clips identified.Multiple air distended bowel loops identified in the abdomen could be ileus or obstruction. Feces and gas noted in the colon. Intrauterine contraceptive device is identified. IMPRESSION: Air distended bowel loops identified in the mid abdomen could be ileus or obstruction. Electronically signed by: Cornel Vieyra MD (07/17/2018 5:11 PM) [facility]
[2018-07-17 19:00] VITALS: BP 112/80
[2018-07-17] MEDS: ZOLPIDEM 5 MG TABLET. PO PRN (20:54)
[2018-07-17 23:00] VITALS: BP 115/70
--- NOTE | 2018-07-17 23:30 | CONS ---
DATE OF CONSULTATION: 07/17/2018 REASON FOR CONSULTATION: Abdominal pain, cyclic vomiting. HISTORY OF PRESENT ILLNESS: A 23-year-old female with past medical history significant for cholecystectomy, is readmitted to [facility] with recurrent cyclic vomiting, abdominal pain, nausea, vomiting, unable to keep anything down. There are no triggers previous extensive workup has been unrevealing and is here for pain control and rehydration. PAST MEDICAL HISTORY: Cyclic vomiting, status post cholecystectomy. FAMILY HISTORY: Significant for diabetes and heart disease. ALLERGIES: None. MEDICATIONS: Presently include famotidine, Reglan, Zofran, Ativan. REVIEW OF SYSTEMS: Per records. PHYSICAL EXAMINATION: GENERAL: Reveals a well-nourished, well-developed female in moderate distress. VITAL SIGNS: Temperature 98.1, pulse 99, respiratory rate 18, blood pressure is 111/74. HEENT: Normocephalic and atraumatic. Pupils and extraocular muscles are not tested. Sclerae anicteric. NECK: Supple. LUNGS: Clear. CARDIOVASCULAR: Reveals an S1, S2 without S3 or appreciable murmur. ABDOMEN: Distended abdomen with hyperactive bowel sounds without appreciable hepatosplenomegaly, right upper quadrant cholecystectomy incision. EXTREMITIES: Reveal no cyanosis, clubbing or edema. LABORATORY STUDIES: Hemoglobin 14.5, hematocrit 42.7, white count 11.2, platelet count is 239,000. Sodium 141, potassium 3.7, chloride 102, BUN 13, creatinine 0.8, glucose 130. Lactate 1.5, calcium is 9.8. IMAGING: KUB is pending. IMPRESSION: Cyclic vomiting, recurrent episodes. We will recommend medical therapy, KUB to assess for obstruction and/or development of free air. Discussed briefly options of the surgical J-tube and/or possible partial gastrectomy and for second opinion at [facility]. The patient is to consider. LUIS F HO MD DR: CAT/rusty JOB#: [id number] / [id number]
--- NOTE | 2018-07-17 23:53 | PDOC ---
PROGRESS NOTES History of Present Illness History of Present Illness Assessment Abdominal Pain Cyclical vomiting syndrome Marijuana use/abuse Nausea/vomiting /Plan GI c/s IVF LA Ativan prn Anti - nausea meds Pain meds Screen urine for porpyhria KUB Matt GI eval Vitals Vitals Vital Signs Date Time Temp Pulse Resp B/P (MAP) Pulse Ox O2 Delivery O2 Flow Rate FiO2 07/17/18 23:00 98.2 75 17 115/70 (85) 100 Room Air 98.2 Physical Exam Lungs: Clear, Other Labs LABS Laboratory Tests Test 07/17/18 12:00 Sodium Level 139 mmol/L (136-145) Potassium Level 3.8 mmol/L (3.5-5.1) Chloride Level 102 mmol/L (98-107) Carbon Dioxide Level 23 mmol/L (21-32) Anion Gap 14 (6-14) Blood Urea Nitrogen 10 mg/dL (7-20) Creatinine 0.7 mg/dL (0.6-1.0) Estimated GFR (Cockcroft-Gault) 102.0 BUN/Creatinine Ratio 14 (6-20) Glucose Level 98 mg/dL (70-99) Calcium Level 9.5 mg/dL (8.5-10.1) Total Bilirubin 1.1 mg/dL (0.2-1.0) Aspartate Amino Transf (AST/SGOT) 15 U/L (15-37) Alanine Aminotransferase (ALT/SGPT) 18 U/L (14-59) Alkaline Phosphatase 52 U/L (46-116) Total Protein 7.7 g/dL (6.4-8.2) Albumin 4.2 g/dL (3.4-5.0) Albumin/Globulin Ratio 1.2 (1.0-1.7) Assessment and Plan Assessmemt and Plan Problems Medical Problems: (1) Cyclic vomiting syndrome Status: Acute Comment Review of Relevant I have reviewed the following items miguel (where applicable) has been applied. Labs Laboratory Tests Test 07/16/18 03:32 07/16/18 03:45 07/16/18 13:20 07/16/18 22:45 Bedside Urine HCG, Qualitative Hcg negative (Negative) White Blood Count 11.2 x10^3/uL (4.0-11.0) Red Blood Count 4.77 x10^6/uL (3.50-5.40) Hemoglobin 14.5 g/dL (12.0-15.5) Hematocrit 42.7 % (36.0-47.0) Mean Corpuscular Volume 90 fL (79-100) Mean Corpuscular Hemoglobin 31 pg (25-35) Mean Corpuscular Hemoglobin Concent 34 g/dL (31-37) Red Cell Distribution Width 13.1 % (11.5-14.5) Platelet Count 239 x10^3/uL (140-400) Neutrophils (%) (Auto) 63 % (31-73) Lymphocytes (%) (Auto) 28 % (24-48) Monocytes (%) (Auto) 6 % (0-9) Eosinophils (%) (Auto) 2 % (0-3) Basophils (%) (Auto) 1 % (0-3) Neutrophils # (Auto) 7.1 x10^3uL (1.8-7.7) Lymphocytes # (Auto) 3.1 x10^3/uL (1.0-4.8) Monocytes # (Auto) 0.7 x10^3/uL (0.0-1.1) Eosinophils # (Auto) 0.2 x10^3/uL (0.0-0.7) Basophils # (Auto) 0.1 x10^3/uL (0.0-0.2) Sodium Level 141 mmol/L (136-145) Potassium Level 3.7 mmol/L (3.5-5.1) Chloride Level 102 mmol/L (98-107) Carbon Dioxide Level 25 mmol/L (21-32) Anion Gap 14 (6-14) Blood Urea Nitrogen 13 mg/dL (7-20) Creatinine 0.8 mg/dL (0.6-1.0) Estimated GFR (Cockcroft-Gault) 87.4 Glucose Level 130 mg/dL (70-99) Calcium Level 9.8 mg/dL (8.5-10.1) Lactic Acid Level 1.5 mmol/L (0.4-2.0) 0.8 mmol/L (0.4-2.0) Test 07/17/18 12:00 Sodium Level 139 mmol/L (136-145) Potassium Level 3.8 mmol/L (3.5-5.1) Chloride Level 102 mmol/L (98-107) Carbon Dioxide Level 23 mmol/L (21-32) Anion Gap 14 (6-14) Blood Urea Nitrogen 10 mg/dL (7-20) Creatinine 0.7 mg/dL (0.6-1.0) Estimated GFR (Cockcroft-Gault) 102.0 BUN/Creatinine Ratio 14 (6-20) Glucose Level 98 mg/dL (70-99) Calcium Level 9.5 mg/dL (8.5-10.1) Total Bilirubin 1.1 mg/dL (0.2-1.0) Aspartate Amino Transf (AST/SGOT) 15 U/L (15-37) Alanine Aminotransferase (ALT/SGPT) 18 U/L (14-59) Alkaline Phosphatase 52 U/L (46-116) Total Protein 7.7 g/dL (6.4-8.2) Albumin 4.2 g/dL (3.4-5.0) Albumin/Globulin Ratio 1.2 (1.0-1.7) Laboratory Tests Test 07/17/18 12:00 Sodium Level 139 mmol/L (136-145) Potassium Level 3.8 mmol/L (3.5-5.1) Chloride Level 102 mmol/L (98-107) Carbon Dioxide Level 23 mmol/L (21-32) Anion Gap 14 (6-14) Blood Urea Nitrogen 10 mg/dL (7-20) Creatinine 0.7 mg/dL (0.6-1.0) Estimated GFR (Cockcroft-Gault) 102.0 BUN/Creatinine Ratio 14 (6-20) Glucose Level 98 mg/dL (70-99) Calcium Level 9.5 mg/dL (8.5-10.1) Total Bilirubin 1.1 mg/dL (0.2-1.0) Aspartate Amino Transf (AST/SGOT) 15 U/L (15-37) Alanine Aminotransferase (ALT/SGPT) 18 U/L (14-59) Alkaline Phosphatase 52 U/L (46-116) Total Protein 7.7 g/dL (6.4-8.2) Albumin 4.2 g/dL (3.4-5.0) Albumin/Globulin Ratio 1.2 (1.0-1.7) Medications Current Medications Lorazepam (Ativan) 1 mg 1X ONCE IV Last administered on 07/16/18at 04:09; Start 07/16/18 at 04:00; Stop 07/16/18 at 04:01; Status DC Prochlorperazine Edisylate (Compazine) 10 mg 1X ONCE IV Last administered on at 04:10; Start 07/16/18 at 04:00; Stop 07/16/18 at 04:01; Status DC Diphenhydramine HCl (Benadryl) 25 mg 1X ONCE IVP Last administered on at 04:10; Start 07/16/18 at 04:00; Stop 07/16/18 at 04:01; Status DC Sodium Chloride 1,000 ml @ 1,000 mls/hr 1X ONCE IV Last administered on at 04:09; Start 07/16/18 at 04:00; Stop 07/16/18 at 04:59; Status DC Famotidine (Pepcid Vial) 20 mg 1X ONCE IVP Last administered on 07/16/18at 05: 29; Start 07/16/18 at 05:00; Stop 07/16/18 at 05:01; Status DC Lorazepam (Ativan) 2 mg 1X ONCE IV Last administered on 07/16/18at 05:29; Start 07/16/18 at 05:30; Stop 07/16/18 at 05:31; Status DC Sodium Chloride 1,000 ml @ 1,000 mls/hr 1X ONCE IV Last administered on at 07:02; Start 07/16/18 at 06:30; Stop 07/16/18 at 07:29; Status DC Sodium Chloride 1,000 ml @ 1,000 mls/hr 1X ONCE IV ; Start 07/16/18 at 07:15; Stop 07/16/18 at 08:14; Status DC Metoclopramide HCl (Reglan Vial) 10 mg 1X ONCE IV Last administered on at 07:57; Start 07/16/18 at 07:45; Stop 07/16/18 at 07:46; Status DC Ondansetron HCl (Zofran) 4 mg PRN Q8HRS PRN IV NAUSEA/VOMITING Last administered on 07/16/18at 09:17; Start 07/16/18 at 08:15; Stop 07/17/18 at 08:14 ; Status DC Acetaminophen (Tylenol) 650 mg PRN Q4HRS PRN PO FEVER Last administered on 07/16at 13:01; Start 07/16/18 at 08:15; Stop 07/16/18 at 22:22; Status DC Acetaminophen (Tylenol) 650 mg PRN Q6HRS PRN PO MILD pain Last administered on 07/17/18at 15:27; Start 07/16/18 at 13:00 Lorazepam (Ativan) 0.5 mg PRN Q8HRS PRN PO ANXIETY / AGITATION Last administered on 07/17/18at 20:19; Start 07/16/18 at 13:00 Famotidine (Pepcid) 20 mg BID PO ; Start 07/16/18 at 21:00; Stop 07/16/18 at 21: 00; Status DC Ondansetron HCl (Zofran) 4 mg PRN Q8HRS PRN IV NAUSEA/VOMITING 1ST CHOICE; Start 07/16/18 at 13:00 Zolpidem Tartrate (Ambien) 5 mg 1X ONCE PO ; Start 07/16/18 at 18:45; Stop at 18:50; Status DC Famotidine (Pepcid Vial) 20 mg BID IVP Last administered on 07/17/18at 20:19; Start 07/16/18 at 21:00 Metoclopramide HCl (Reglan Vial) 5 mg PRN Q8HRS PRN IV NAUSEA/VOMITING 2ND CHOICE Last administered on 07/17/18at 15:26; Start 07/16/18 at 20:30 Sodium Chloride 1,000 ml @ 75 mls/hr [id number] IV Last administered on at 23:44; Start 07/16/18 at 20:30 Zolpidem Tartrate (Ambien) 5 mg 1X ONCE PO Last administered on 07/16/18at 21: 02; Start 07/16/18 at 21:15; Stop 07/16/18 at 21:16; Status DC Oxycodone/ Acetaminophen (Percocet 5/325) 1 tab 1X ONCE PO Last administered on 07/16/18at 22:34; Start 07/16/18 at 23:00; Stop 07/16/18 at 23:01; Status DC Oxycodone/ Acetaminophen (Percocet 5/325) 1 tab PRN Q4HRS PRN PO MODERATE- SEVERE PAIN Last administered on 07/17/18at 21:08; Start 07/17/18 at 12:00 Zolpidem Tartrate (Ambien) 5 mg PRN QHS PRN PO INSOMNIA Last administered on at 20:54; Start 07/17/18 at 20:45 Active Scripts Active Zofran Odt (Ondansetron) 8 Mg Tab.rapdis 8 Mg PO BID PRN Promethazine Hcl 25 Mg Tablet 1 Tab PO PRN Q6HRS Reglan (Metoclopramide Hcl) 10 Mg Tablet 10 Mg PO QIDACHS PRN Reported [no home medicatiion] Vitals/I & O Vital Sign - Last 24 Hours 07/17/18 07/17/18 07/17/18 07/17/18 03:00 07:00 07:30 11:00 Temp 97.9 98.1 98.1 97.9 98.1 98.1 Pulse 59 99 54 Resp 17 18 18 B/P (MAP) 98/51 (67) 111/74 (86) 125/74 (91) Pulse Ox 100 97 96 O2 Delivery Room Air Room Air Room Air Room Air 07/17/18 07/17/18 07/17/18 07/17/18 12:08 15:00 16:55 19:00 Temp 98.0 98.1 98.0 98.1 Pulse 80 88 Resp 18 17 B/P (MAP) 130/69 (89) 112/80 (91) Pulse Ox 97 98 97 96 O2 Delivery Room Air Room Air Room Air 07/17/18 07/17/18 07/17/18 07/17/18 20:12 21:08 22:09 23:00 Temp 98.2 98.2 Pulse 75 Resp 17 B/P (MAP) 115/70 (85) Pulse Ox 97 97 100 O2 Delivery Room Air Room Air Room Air Room Air Intake and Output 07/16/18 07/16/18 07/17/18 15:00 23:00 07:00 Intake Total 0 ml 420 ml Balance 0 ml 420 ml BARRY GRAY MD Jul 17, 2018 23:53
[2018-07-18] MEDS: oxyCODONE/APAP 5/325 1 TAB TABLET PO PRN ×2 (01:33→06:08)
[2018-07-18 03:00] VITALS: BP 115/70
[2018-07-18] MEDS: METOCLOPRAMIDE HCL 10 MG/2 ML VIAL. IV PRN (06:07)
[2018-07-18 07:00] VITALS: BP 104/60
--- NOTE | 2018-07-18 08:56 | PDOC ---
Subjective: Subjective: "Stomach hurts" so not sure she'll try eating. Upset because she wants IV pain meds instead of oral because of vomiting. Says getting worse overall, can barely leave her house. Doesn't want to go to , [facility], or [facility] for second opinion due to bad experiences in the past. "No one is listening to me." Objective: Objective: Note primary checking urine porphyrins. --- Past GI workup: Have tried amitriptyline and PPI in the past - non-compliant. EGD w/ Dr. Nieto at some point, records unavailable. S/p cholecystectomy. Normal GES in 09/2016. DAJA and Cortisol neg/normal in 07/2017. UGI/SBS in 01/2018 w/ mild GERD, no hiatal hernia, normal stomach and duodenum, no obstruction. Last CT A/P 06/2018: s/p cholecystectomy w/o evidence for intrahepatic or extrahepatic biliary ductal dilatation, no evidence for bowel obstruction or inflammation. Always + marijuana - milder symptoms improved at home w/ hot showers ( suspicious for cannabis hyperemesis). Vital Signs: Vital Signs Date Time Temp Pulse Resp B/P (MAP) Pulse Ox O2 Delivery O2 Flow Rate FiO2 07/18/18 07:08 100 Room Air 07/18/18 07:00 98.7 86 104/60 (75) 98.7 07/18/18 03:00 17 Labs: Laboratory Tests Test 07/17/18 12:00 Sodium Level 139 mmol/L Potassium Level 3.8 mmol/L Chloride Level 102 mmol/L Carbon Dioxide Level 23 mmol/L Anion Gap 14 Blood Urea Nitrogen 10 mg/dL Creatinine 0.7 mg/dL Estimated GFR (Cockcroft-Gault) 102.0 BUN/Creatinine Ratio 14 Glucose Level 98 mg/dL Calcium Level 9.5 mg/dL Total Bilirubin 1.1 mg/dL Aspartate Amino Transf (AST/SGOT) 15 U/L Alanine Aminotransferase (ALT/SGPT) 18 U/L Alkaline Phosphatase 52 U/L Total Protein 7.7 g/dL Albumin 4.2 g/dL Albumin/Globulin Ratio 1.2 Imaging: KUB IMPRESSION: Air distended bowel loops identified in the mid abdomen could be ileus or obstruction. PE: GEN: was asleep, awoke to talk w/ me, seemed very anxious LUNGS: CTAB HEART: RRR ABD: soft, BS+, tender NEURO/PSYCH: A & O 3, tearful A/P: Recurrent n/v, abd pain -- Defer her request for IV pain meds to primary. She doesn't want to go to other hospitals for another opinion, she just likes coming here. 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 Will recheck KUB. Dr. Ellison discussed possibility of J tube - surgical consult? LIBBY CAO Jul 18, 2018 08:56
[2018-07-18] MEDS: FAMOTIDINE 20 MG/2 ML VIAL IVP SCH ×2 (10:19→20:57)
[2018-07-18] MEDS: ONDANSETRON PF 4 MG/2 ML VIAL. IV PRN ×2 (10:45→23:09)
--- NOTE | 2018-07-18 10:48 | RAD ---
Portable abdomen, 07/18/2018: HISTORY: Abdominal pain And IUD is projected over the pelvis just to the right of midline. Surgical clips are present in the right upper quadrant. The abdominal gas pattern is unremarkable. There is no evidence organomegaly. Multiple pelvic calcifications are probably phleboliths. IMPRESSION: 1. An IUD is present. 2. No acute abdominal abnormality is detected. Electronically signed by: Jayme Alexander MD (07/18/2018 10:44 AM) [facility]
[2018-07-18] MEDS: MORPHINE SULFATE 4 MG/ML VIAL. IV PRN ×4 (10:55→23:09)
[2018-07-18 11:00] VITALS: BP 110/62
--- NOTE | 2018-07-18 11:08 | PDOC ---
PROGRESS NOTES Chief Complaint Chief Complaint cyclic vomiting THC abuse and hyperemesis syndrome anxiety disorder acute abdominal pain History of Present Illness History of Present Illness Abdominal Pain Cyclical vomiting syndrome Marijuana use/abuse Nausea/vomiting GI c/s IVF LA Ativan prn Anti - nausea meds Pain meds Screen urine for porpyhria KUB Matt GI eval Vitals Vitals Vital Signs Date Time Temp Pulse Resp B/P (MAP) Pulse Ox O2 Delivery O2 Flow Rate FiO2 07/18/18 07:08 100 Room Air 07/18/18 07:00 98.7 86 104/60 (75) 98.7 07/18/18 03:00 17 Physical Exam Lungs: Clear, Other Labs LABS Laboratory Tests Test 07/17/18 12:00 Sodium Level 139 mmol/L (136-145) Potassium Level 3.8 mmol/L (3.5-5.1) Chloride Level 102 mmol/L (98-107) Carbon Dioxide Level 23 mmol/L (21-32) Anion Gap 14 (6-14) Blood Urea Nitrogen 10 mg/dL (7-20) Creatinine 0.7 mg/dL (0.6-1.0) Estimated GFR (Cockcroft-Gault) 102.0 BUN/Creatinine Ratio 14 (6-20) Glucose Level 98 mg/dL (70-99) Calcium Level 9.5 mg/dL (8.5-10.1) Total Bilirubin 1.1 mg/dL (0.2-1.0) Aspartate Amino Transf (AST/SGOT) 15 U/L (15-37) Alanine Aminotransferase (ALT/SGPT) 18 U/L (14-59) Alkaline Phosphatase 52 U/L (46-116) Total Protein 7.7 g/dL (6.4-8.2) Albumin 4.2 g/dL (3.4-5.0) Albumin/Globulin Ratio 1.2 (1.0-1.7) Assessment and Plan Assessmemt and Plan Problems Medical Problems: (1) Cyclic vomiting syndrome Status: Acute Comment Review of Relevant I have reviewed the following items miguel (where applicable) has been applied. Labs Laboratory Tests Test 07/16/18 13:20 07/16/18 22:45 07/17/18 12:00 Lactic Acid Level 1.5 mmol/L (0.4-2.0) 0.8 mmol/L (0.4-2.0) Sodium Level 139 mmol/L (136-145) Potassium Level 3.8 mmol/L (3.5-5.1) Chloride Level 102 mmol/L (98-107) Carbon Dioxide Level 23 mmol/L (21-32) Anion Gap 14 (6-14) Blood Urea Nitrogen 10 mg/dL (7-20) Creatinine 0.7 mg/dL (0.6-1.0) Estimated GFR (Cockcroft-Gault) 102.0 BUN/Creatinine Ratio 14 (6-20) Glucose Level 98 mg/dL (70-99) Calcium Level 9.5 mg/dL (8.5-10.1) Total Bilirubin 1.1 mg/dL (0.2-1.0) Aspartate Amino Transf (AST/SGOT) 15 U/L (15-37) Alanine Aminotransferase (ALT/SGPT) 18 U/L (14-59) Alkaline Phosphatase 52 U/L (46-116) Total Protein 7.7 g/dL (6.4-8.2) Albumin 4.2 g/dL (3.4-5.0) Albumin/Globulin Ratio 1.2 (1.0-1.7) Laboratory Tests Test 07/17/18 12:00 Sodium Level 139 mmol/L (136-145) Potassium Level 3.8 mmol/L (3.5-5.1) Chloride Level 102 mmol/L (98-107) Carbon Dioxide Level 23 mmol/L (21-32) Anion Gap 14 (6-14) Blood Urea Nitrogen 10 mg/dL (7-20) Creatinine 0.7 mg/dL (0.6-1.0) Estimated GFR (Cockcroft-Gault) 102.0 BUN/Creatinine Ratio 14 (6-20) Glucose Level 98 mg/dL (70-99) Calcium Level 9.5 mg/dL (8.5-10.1) Total Bilirubin 1.1 mg/dL (0.2-1.0) Aspartate Amino Transf (AST/SGOT) 15 U/L (15-37) Alanine Aminotransferase (ALT/SGPT) 18 U/L (14-59) Alkaline Phosphatase 52 U/L (46-116) Total Protein 7.7 g/dL (6.4-8.2) Albumin 4.2 g/dL (3.4-5.0) Albumin/Globulin Ratio 1.2 (1.0-1.7) Medications Current Medications Lorazepam (Ativan) 1 mg 1X ONCE IV Last administered on 07/16/18at 04:09; Start 07/16/18 at 04:00; Stop 07/16/18 at 04:01; Status DC Prochlorperazine Edisylate (Compazine) 10 mg 1X ONCE IV Last administered on at 04:10; Start 07/16/18 at 04:00; Stop 07/16/18 at 04:01; Status DC Diphenhydramine HCl (Benadryl) 25 mg 1X ONCE IVP Last administered on at 04:10; Start 07/16/18 at 04:00; Stop 07/16/18 at 04:01; Status DC Sodium Chloride 1,000 ml @ 1,000 mls/hr 1X ONCE IV Last administered on at 04:09; Start 07/16/18 at 04:00; Stop 07/16/18 at 04:59; Status DC Famotidine (Pepcid Vial) 20 mg 1X ONCE IVP Last administered on 07/16/18at 05: 29; Start 07/16/18 at 05:00; Stop 07/16/18 at 05:01; Status DC Lorazepam (Ativan) 2 mg 1X ONCE IV Last administered on 07/16/18at 05:29; Start 07/16/18 at 05:30; Stop 07/16/18 at 05:31; Status DC Sodium Chloride 1,000 ml @ 1,000 mls/hr 1X ONCE IV Last administered on at 07:02; Start 07/16/18 at 06:30; Stop 07/16/18 at 07:29; Status DC Sodium Chloride 1,000 ml @ 1,000 mls/hr 1X ONCE IV ; Start 07/16/18 at 07:15; Stop 07/16/18 at 08:14; Status DC Metoclopramide HCl (Reglan Vial) 10 mg 1X ONCE IV Last administered on at 07:57; Start 07/16/18 at 07:45; Stop 07/16/18 at 07:46; Status DC Ondansetron HCl (Zofran) 4 mg PRN Q8HRS PRN IV NAUSEA/VOMITING Last administered on 07/16/18at 09:17; Start 07/16/18 at 08:15; Stop 07/17/18 at 08:14 ; Status DC Acetaminophen (Tylenol) 650 mg PRN Q4HRS PRN PO FEVER Last administered on 07/16at 13:01; Start 07/16/18 at 08:15; Stop 07/16/18 at 22:22; Status DC Acetaminophen (Tylenol) 650 mg PRN Q6HRS PRN PO MILD pain Last administered on 07/17/18at 15:27; Start 07/16/18 at 13:00 Lorazepam (Ativan) 0.5 mg PRN Q8HRS PRN PO ANXIETY / AGITATION Last administered on 07/17/18at 20:19; Start 07/16/18 at 13:00 Famotidine (Pepcid) 20 mg BID PO ; Start 07/16/18 at 21:00; Stop 07/16/18 at 21: 00; Status DC Ondansetron HCl (Zofran) 4 mg PRN Q8HRS PRN IV NAUSEA/VOMITING 1ST CHOICE; Start 07/16/18 at 13:00; Stop 07/18/18 at 10:29; Status DC Zolpidem Tartrate (Ambien) 5 mg 1X ONCE PO ; Start 07/16/18 at 18:45; Stop at 18:50; Status DC Famotidine (Pepcid Vial) 20 mg BID IVP Last administered on 07/18/18at 10:19; Start 07/16/18 at 21:00 Metoclopramide HCl (Reglan Vial) 5 mg PRN Q8HRS PRN IV NAUSEA/VOMITING 2ND CHOICE Last administered on 07/18/18at 06:07; Start 07/16/18 at 20:30 Sodium Chloride 1,000 ml @ 75 mls/hr [id number] IV Last administered on at 23:44; Start 07/16/18 at 20:30 Zolpidem Tartrate (Ambien) 5 mg 1X ONCE PO Last administered on 07/16/18at 21: 02; Start 07/16/18 at 21:15; Stop 07/16/18 at 21:16; Status DC Oxycodone/ Acetaminophen (Percocet 5/325) 1 tab 1X ONCE PO Last administered on 07/16/18at 22:34; Start 07/16/18 at 23:00; Stop 07/16/18 at 23:01; Status DC Oxycodone/ Acetaminophen (Percocet 5/325) 1 tab PRN Q4HRS PRN PO MODERATE- SEVERE PAIN Last administered on 07/18/18at 06:08; Start 07/17/18 at 12:00 Zolpidem Tartrate (Ambien) 5 mg PRN QHS PRN PO INSOMNIA Last administered on at 20:54; Start 07/17/18 at 20:45 Ondansetron HCl (Zofran) 8 mg PRN Q8HRS PRN IV NAUSEA/VOMITING 1ST CHOICE Last administered on 07/18/18at 10:45; Start 07/18/18 at 10:30 Lorazepam (Ativan) 2 mg PRN Q4HRS PRN IV ANXIETY / AGITATION Last administered on 07/18/18at 10:46; Start 07/18/18 at 10:30 Morphine Sulfate (Morphine Sulfate) 4 mg PRN Q2HR PRN IV PAIN Last administered on 07/18/18at 10:55; Start 07/18/18 at 10:30 Active Scripts Active Zofran Odt (Ondansetron) 8 Mg Tab.rapdis 8 Mg PO BID PRN Promethazine Hcl 25 Mg Tablet 1 Tab PO PRN Q6HRS Reglan (Metoclopramide Hcl) 10 Mg Tablet 10 Mg PO QIDACHS PRN Reported [no home medicatiion] Vitals/I & O Vital Sign - Last 24 Hours 07/17/18 07/17/18 07/17/18 07/17/18 12:08 15:00 16:55 19:00 Temp 98.0 98.1 98.0 98.1 Pulse 80 88 Resp 18 17 B/P (MAP) 130/69 (89) 112/80 (91) Pulse Ox 97 98 97 96 O2 Delivery Room Air Room Air Room Air 07/17/18 07/17/18 07/17/18 07/18/18 20:12 21:08 23:00 01:33 Temp 98.2 98.2 Pulse 75 Resp 17 B/P (MAP) 115/70 (85) Pulse Ox 97 100 100 O2 Delivery Room Air Room Air Room Air Room Air 07/18/18 07/18/18 07/18/18 07/18/18 03:00 06:08 07:00 07:08 Temp 97.9 98.7 97.9 98.7 Pulse 50 86 Resp 17 B/P (MAP) 115/70 (85) 104/60 (75) Pulse Ox 98 100 96 100 O2 Delivery Room Air Room Air Room Air Room Air Intake and Output 07/17/18 07/17/18 07/18/18 15:00 23:00 07:00 Intake Total 380 ml 760 ml Balance 380 ml 760 ml RICK HUNTER MD Jul 18, 2018 11:08
[2018-07-18 14:49] VITALS: BP 114/72
[2018-07-18] MEDS: IV NORMAL SALINE 1000ML BAG 1,000 ML IV SCH (15:04)
[2018-07-18 19:00] VITALS: BP 129/77
[2018-07-18] MEDS: ZOLPIDEM 5 MG TABLET. PO PRN (20:57)
[2018-07-18 23:00] VITALS: BP 116/63
[2018-07-19] MEDS: MORPHINE SULFATE 4 MG/ML VIAL. IV PRN ×3 (01:30→10:14)
[2018-07-19] MEDS: IV NORMAL SALINE 1000ML BAG 1,000 ML IV SCH (01:30)
[2018-07-19 03:00] VITALS: BP 105/73
[2018-07-19 03:14] LABS: BARBITURATES NEG (NEG); BENZODIAZEPINES NEG (NEG); CANNABINOIDS POS (NEG); COCAINE NEG (NEG); METHADONE NEG (NEG); OPIATES POS (NEG); PHENCYCLIDINE NEG (NEG)
[2018-07-19 03:22] LABS: AMPHETAMINE/METHAMPHETAMINE NEG (NEG)
[2018-07-19 07:00] VITALS: BP 114/51
[2018-07-19] MEDS: FAMOTIDINE 20 MG/2 ML VIAL IVP SCH (08:33)
[2018-07-19] MEDS ORDERED: METO10TA81 PO (08:36)
--- NOTE | 2018-07-19 10:32 | PDOC ---
Subjective: Subjective: Still has pain but tolerating PO - says she ate a burger last night. No n/v. Stooled. Thinks she can go home later. Objective: Objective: Events of last night noted. Vital Signs: Vital Signs Date Time Temp Pulse Resp B/P (MAP) Pulse Ox O2 Delivery O2 Flow Rate FiO2 07/19/18 08:00 Room Air 07/19/18 07:00 97.9 57 18 114/51 (72) 98 97.9 Labs: Laboratory Tests Test 07/19/18 03:00 Urine Opiates Screen Pos Urine Methadone Screen Neg Urine Barbiturates Neg Urine Phencyclidine Screen Neg Urine Amphetamine/Methamphetamine Neg Urine Benzodiazepines Screen Neg Urine Cocaine Screen Neg Urine Cannabinoids Screen Pos Urine Ethyl Alcohol Neg PE: GEN: NAD LUNGS: CTAB HEART: RRR ABD: epigastric/periumbilical discomfort - muscular? NEURO/PSYCH: A & O 3 A/P: Recurrent n/v, abd pain +marijuana -- Now tolerating PO. DC per primary. In the past, have attempted to restart amitriptyline and PPI - she's non- compliant w/ meds at home. She doesn't want to go anywhere else for another GI opinion. LIBBY CAO Jul 19, 2018 10:32
[2018-07-21 11:25] LABS: COPORPHYRIN 24 ug/L (Undefined); HEPATACARBOXYLPORPH 4 ug/L (Undefined); HEXCARBOXYLPORPHYRIN <1 ug/L (Undefined); PENTACARBOXYLPORPH <1 ug/L (Undefined); UROPORPHYRIN 7 ug/L (Undefined)
== END 2018-07-19 10:30 | disposition home or self-care (01) | DRG 103 ==
LOC: ER 03:24 → 5 NORTH 07:40
PROVIDERS: ADMIT Hospitalist; ATTEND Hospitalist
DX: G43.A0 Cyclical vomiting, in migraine, not intractable (principal); F12.10 Cannabis abuse, uncomplicated; F41.0 Panic disorder [episodic paroxysmal anxiety]; K21.9 Gastro-esophageal reflux disease without esophagitis; Z83.3 Family history of diabetes mellitus; Z90.49 Acquired absence of other specified parts of digestive tract; Z91.14 Patient's other noncompliance with medication regimen; Z91.018 Allergy to other foods; Z82.49 Family history of ischemic heart disease and other diseases of the circulatory system; Z79.899 Other long term (current) drug therapy
CPT/HCPCS: 36415; 74018; 80048; 80053; 80307; 81025; 83605; 84120; 85025; 96361; 96374; 96375; 96376; J0780; J1200; J2060; J2270; J2405; J2765; J7030; S0028; 99285-25; G0479

== ENCOUNTER 2018-08-20 05:26 | Emergency (ER) | payer BC ==
[~2018-08-20] VITALS: Ht 167.6 cm; Wt 74.8 kg
--- NOTE | 2018-08-20 05:42 | PHYS DOC ---
Past Medical History Past Medical History: Anxiety, Cyclic Vomiting, Other Additional Past Medical Histor: PANIC ATTACKS, CYCLIC VOMITING Past Surgical History: Cholecystectomy Alcohol Use: None Drug Use: Marijuana Adult General Chief Complaint Chief Complaint: ABDOMINAL PAIN HPI HPI Patient is a 23 year old female presented to the ED via EMS due to abdominal pain. Patient is well-known to the ED due to cyclic vomiting syndrome which was attributed to THC abuse. Patient claims that her last smoke was last Wednesday. She claims that stabbing pain suddenly started tonight and progressively got worse and was not able to control it with hot showers. Patient tried to take amitriptyline but ended up vomiting. Patient states that she vomited 5 times today. Patient states that Haldol, fentanyl, and Zofran usually relieve her symptoms when they occur. Patient reports shortness of breath, and abdominal pain. Denies chest pain. Review of Systems Review of Systems Constitutional: Denies fever or chills [] Eyes: Denies change in visual acuity, redness, or eye pain [] HENT: Denies nasal congestion or sore throat [] Respiratory: Reports shortness of breath Cardiovascular: Denies Chest pain GI: Reports abdominal pain, nausea, vomiting. : Denies dysuria or hematuria [] Musculoskeletal: Denies back pain or joint pain [] Integument: Denies rash or skin lesions [] Neurologic: Denies headache, focal weakness or sensory changes [] Complete systems were reviewed and found to be within normal limits, except as documented in this note. Current Medications Current Medications Current Medications Medications (Trade) Dose Ordered Sig/Arnaldo Start Time Stop Time Status Last Admin Dose Admin Famotidine (Pepcid Vial) 20 mg 1X ONCE 08/20/18 05:45 08/20/18 05:46 DC 08/20/18 06:00 20 MG Haloperidol Lactate (Haldol Inj) 5 mg 1X ONCE 08/20/18 05:45 08/20/18 05:46 DC 08/20/18 06:00 5 MG Ketorolac Tromethamine (Toradol 15mg Vial) 15 mg 1X ONCE 08/20/18 05:45 08/20/18 05:46 DC 08/20/18 06:00 15 MG Lorazepam (Ativan) 2 mg 1X ONCE 08/20/18 06:45 08/20/18 06:46 DC 08/20/18 06:42 2 MG Ondansetron HCl (Zofran) 4 mg 1X ONCE 08/20/18 05:45 08/20/18 05:46 DC 08/20/18 06:00 4 MG Sodium Chloride 1,000 ml @ 1,000 mls/hr 1X ONCE 08/20/18 08:00 08/20/18 08:59 08/20/18 08:04 1,000 MLS/HR Allergies Allergies Allergies Coded Allergies Type Severity Reaction Last Updated Verified coconut Allergy Severe Anaphylaxis 01/22/17 Yes Physical Exam Physical Exam Constitutional: Well developed, appears to be uncomfortable HENT: Normocephalic, atraumatic,, oropharynx moist Eyes: PERRL, EOMI, conjunctiva normal, no discharge. [] Neck: Normal range of motion, no tenderness, supple Cardiovascular: Tachycardic Lungs & Thorax: Bilateral breath sounds clear to auscultation [] Abdomen: Soft, tenderness noted to epigastric region Skin: Warm, dry, no erythema, no rash. [] Back: No tenderness, no CVA tenderness. [] Extremities: No tenderness, ROM intact, no edema. [] Neurologic: Alert and oriented X 3, normal motor function, normal sensory function, no focal deficits noted. [] Psychologic: Affect normal, judgement normal, mood normal. [] Current Patient Data Vital Signs Vital Signs Date Time Temp Pulse Resp B/P (MAP) Pulse Ox O2 Delivery O2 Flow Rate FiO2 08/20/18 06:45 110 26 140/84 (102) 98 Room Air 08/20/18 05:26 97.5 97.5 Lab Values Laboratory Tests Test 08/20/18 05:45 08/20/18 07:21 08/20/18 07:25 White Blood Count 8.4 x10^3/uL (4.0-11.0) Red Blood Count 4.81 x10^6/uL (3.50-5.40) Hemoglobin 14.6 g/dL (12.0-15.5) Hematocrit 42.4 % (36.0-47.0) Mean Corpuscular Volume 88 fL (79-100) Mean Corpuscular Hemoglobin 30 pg (25-35) Mean Corpuscular Hemoglobin Concent 35 g/dL (31-37) Red Cell Distribution Width 13.0 % (11.5-14.5) Platelet Count 189 x10^3/uL (140-400) Neutrophils (%) (Auto) 63 % (31-73) Lymphocytes (%) (Auto) 28 % (24-48) Monocytes (%) (Auto) 7 % (0-9) Eosinophils (%) (Auto) 2 % (0-3) Basophils (%) (Auto) 1 % (0-3) Neutrophils # (Auto) 5.3 x10^3uL (1.8-7.7) Lymphocytes # (Auto) 2.3 x10^3/uL (1.0-4.8) Monocytes # (Auto) 0.5 x10^3/uL (0.0-1.1) Eosinophils # (Auto) 0.1 x10^3/uL (0.0-0.7) Basophils # (Auto) 0.1 x10^3/uL (0.0-0.2) Sodium Level 140 mmol/L (136-145) Potassium Level 3.9 mmol/L (3.5-5.1) Chloride Level 104 mmol/L (98-107) Carbon Dioxide Level 22 mmol/L (21-32) Anion Gap 14 (6-14) Blood Urea Nitrogen 13 mg/dL (7-20) Creatinine 0.7 mg/dL (0.6-1.0) Estimated GFR (Cockcroft-Gault) 102.0 BUN/Creatinine Ratio 19 (6-20) Glucose Level 103 mg/dL (70-99) H Calcium Level 9.3 mg/dL (8.5-10.1) Magnesium Level 2.0 mg/dL (1.8-2.4) Total Bilirubin 0.7 mg/dL (0.2-1.0) Aspartate Amino Transferase (AST) 22 U/L (15-37) Alanine Aminotransferase (ALT) 18 U/L (14-59) Alkaline Phosphatase 69 U/L (46-116) Total Protein 7.9 g/dL (6.4-8.2) Albumin 4.1 g/dL (3.4-5.0) Albumin/Globulin Ratio 1.1 (1.0-1.7) Lipase 164 U/L (73-393) Urine Collection Type Void Urine Color Quin Urine Clarity Cloudy Urine pH 5.5 Urine Specific [place] >=1.030 Urine Protein 30 mg/dL (NEG-TRACE) Urine Glucose (UA) Negative mg/dL (NEG) Urine Ketones (Stick) 15 mg/dL (NEG) Urine Blood Moderate (NEG) Urine Nitrite Negative (NEG) Urine Bilirubin Small (NEG) Urine Urobilinogen Dipstick 1.0 mg/dL (0.2 mg/dL) Urine Leukocyte Esterase Small (NEG) Urine RBC Occ /HPF (0-2) Urine WBC 1-4 /HPF (0-4) Urine Squamous Epithelial Cells Many /LPF Urine Bacteria Many /HPF (0-FEW) Urine Mucus Marked /LPF Urine Opiates Screen Neg (NEG) Urine Methadone Screen Neg (NEG) Urine Barbiturates Neg (NEG) Urine Phencyclidine Screen Neg (NEG) Urine Amphetamine/Methamphetamine Neg (NEG) Urine Benzodiazepines Screen Neg (NEG) Urine Cocaine Screen Neg (NEG) Urine Cannabinoids Screen Pos (NEG) Urine Ethyl Alcohol Neg (NEG) POC Urine HCG, Qualitative Hcg negative (Negative) Laboratory Tests 08/20/18 05:45 Laboratory Tests 08/20/18 05:45 EKG EKG [] Radiology/Procedures Radiology/Procedures [facility] [address] [place] [address] IMAGING REPORT Signed PATIENT: BILL GONZÁLES ACCOUNT: [id number] : 1995 LOCATION: ER AGE: 23 SEX: F EXAM STATUS: REG ER ORD. PHYSICIAN: BIENVENIDO RAMIREZ DO REASON: ABDOMINAL PAIN, NAUSEA, VOMITING PROCEDURE: ACUTE ABDOMEN SERIES Examination: Acute abdomen series HISTORY: History of nausea, vomiting, abdominal pain COMPARISON: 07/04/2018 FINDINGS: The cardiomediastinal silhouette grossly appears unremarkable. There is no acute infiltrate or visualized pneumothorax. No evidence of free air noted under the hemidiaphragm. The bowel gas pattern appears unremarkable. Cholecystectomy clips identified. Feces and gas noted in the colon. Intrauterine contraceptive device is identified in the pelvis. IMPRESSION: 1. No acute cardiopulmonary findings. 2. Unremarkable bowel gas pattern. Electronically signed by: Cornel Vieyra MD (08/20/2018 8:02 AM) [facility] DICTATED and SIGNED BY: CORNEL VIEYRA MD DATE: 08/20/18 0800 [] Course & Med Decision Making Course & Med Decision Making 23-year-old female patient with a past medical history of a cyclic vomiting syndrome, well known to the ED. Patient received Zofran and fentanyl in route by EMS. Symptomatic treatment provided. IVF hydration given. Labs obtained and pending at this time. Sign out given to Dr. Ramirez for further evaluation and final disposition. Discussed current findings and plan with patient, who acknowledges understanding and agreement. ALL lab works and acute abdominal series xray were normal. Patient was sleeping in the room, NO ACTIVE VOMITING OBSERVED. When this physician came into her room to wake her up, went over lab results and xray, informed her of being discharged home. She wanted narcotic for pain, she was told that we will not treat her chronic abdominal pain with narcotic. Patient became very anxious , hyperventilating....and not happy with it. She will be discharged home, follow up with her GI doctor. Ce Disclaimer Dragkenny Disclaimer This electronic medical record was generated, in whole or in part, using a voice recognition dictation system. Departure Departure Impression: Primary Impression: Cyclic vomiting syndrome Disposition: HOME, SELF-CARE Condition: IMPROVED Referrals: NO PCP (PCP) follow up with your doctor next week. Patient Instructions: Cyclic Vomiting Syndrome Scripts Ondansetron Hcl (ZOFRAN) 4 Mg Tablet 1 TAB PO Q6HRS PRN for NAUSEA, #20 TAB Prov: BIENVENIDO RAMIREZ DO 08/20/18 Promethazine HCl (Phenergan) 25 Mg Supp.rect 25 MG RC TID PRN for NAUSEA, #12 SUPP.RECT Prov: BIENVENIDO RAMIREZ DO 08/20/18 Problem Qualifiers Primary Impression: Cyclic vomiting syndrome Vomiting Intractability: unspecified Nausea presence: unspecified Qualified Codes: G43.A0 - Cyclical vomiting, not intractable ANGELINA MASSEY DO Aug 20, 2018 05:42 BIENVENIDO RAMIREZ DO Aug 20, 2018 08:29
[2018-08-20] MEDS ORDERED: ONDANSETRON PF 4 MG/2 ML VIAL. IV ONE (05:45)
[2018-08-20] MEDS ORDERED: KETOROLAC 15 MG/ML VIAL. IV ONE (05:45)
[2018-08-20] MEDS ORDERED: FAMOTIDINE 20 MG/2 ML VIAL IVP ONE (05:45)
[2018-08-20] MEDS ORDERED: HALOPERIDOL LACTATE 5 MG/ML VIAL. IM ONE (05:45)
[2018-08-20 06:05] LABS: BASO # 0.1 x10^3/uL (0.0-0.2); BASO % 1 % (0-3); EOS # 0.1 x10^3/uL (0.0-0.7); EOS % 2 % (0-3); HEMATOCRIT 42.4 % (36.0-47.0); HEMOGLOBIN 14.6 g/dL (12.0-15.5); LYMPH # 2.3 x10^3/uL (1.0-4.8); LYMPH % 28 % (24-48); MEAN CORPUSCULAR HEMOGLOBIN 30 pg (25-35); MEAN CORPUSCULAR HGB CONC 35 g/dL (31-37); MEAN CORPUSCULAR VOLUME 88 fL (79-100); MONO # 0.5 x10^3/uL (0.0-1.1); MONO % 7 % (0-9); NEUT # 5.3 x10^3uL (1.8-7.7); NEUT % 63 % (31-73); PLATELET COUNT 189 x10^3/uL (140-400); RED BLOOD COUNT 4.81 x10^6/uL (3.50-5.40); WHITE BLOOD COUNT 8.4 x10^3/uL (4.0-11.0)
[2018-08-20 06:20] LABS: CALCIUM 9.3 mg/dL (8.5-10.1); CREATININE 0.7 mg/dL (0.6-1.0)
[2018-08-20 06:21] LABS: POTASSIUM 3.9 mmol/L (3.5-5.1)
[2018-08-20 06:27] LABS: ALBUMIN 4.1 g/dL (3.4-5.0); ALBUMIN/GLOBULIN RATIO 1.1 (1.0-1.7); TOTAL BILIRUBIN 0.7 mg/dL (0.2-1.0); TOTAL PROTEIN 7.9 g/dL (6.4-8.2)
[2018-08-20 07:34] LABS: BILIRUBIN,URINE SMALL (NEG); CLARITY,URINE CLOUDY; COLOR,URINE AMBER; NITRITE,URINE NEGATIVE (NEG); PH,URINE 5.5; PROTEIN,URINE 30 mg/dL (NEG-TRACE)
[2018-08-20 07:55] LABS: BACTERIA,URINE MANY /HPF (0-FEW); RBC,URINE OCC /HPF (0-2); SQUAMOUS EPITHELIAL CELL,UR MANY /LPF
[2018-08-20] MEDS ORDERED: IV NORMAL SALINE 1000ML BAG 1,000 ML IV ONE (08:00)
--- NOTE | 2018-08-20 08:06 | RAD ---
Examination: Acute abdomen series HISTORY: History of nausea, vomiting, abdominal pain COMPARISON: 07/04/2018 FINDINGS: The cardiomediastinal silhouette grossly appears unremarkable. There is no acute infiltrate or visualized pneumothorax. No evidence of free air noted under the hemidiaphragm. The bowel gas pattern appears unremarkable. Cholecystectomy clips identified. Feces and gas noted in the colon. Intrauterine contraceptive device is identified in the pelvis. IMPRESSION: 1. No acute cardiopulmonary findings. 2. Unremarkable bowel gas pattern. Electronically signed by: Cornel Vieyra MD (08/20/2018 8:02 AM) [facility]
[2018-08-20] MEDS ORDERED: PROM25SU32 RC (08:28)
[2018-08-20] MEDS ORDERED: ONDA4TAB7 PO (08:28)
[2018-08-20 08:29] LABS: BARBITURATES NEG (NEG); BENZODIAZEPINES NEG (NEG); CANNABINOIDS POS (NEG); COCAINE NEG (NEG); METHADONE NEG (NEG); OPIATES NEG (NEG); PHENCYCLIDINE NEG (NEG)
[2018-08-20 08:30] VITALS: BP 147/93
[2018-08-20 08:30] LABS: AMPHETAMINE/METHAMPHETAMINE NEG (NEG)
== END 2018-08-20 09:00 | disposition home or self-care (01) ==
LOC: ER 05:26
DX: K31.89 Other diseases of stomach and duodenum (principal); R11.2 Nausea with vomiting, unspecified; R10.13 Epigastric pain; R00.0 Tachycardia, unspecified; F41.9 Anxiety disorder, unspecified; F12.20 Cannabis dependence, uncomplicated; Z90.49 Acquired absence of other specified parts of digestive tract; Z91.018 Allergy to other foods
CPT/HCPCS: 96361; 96372; 96374; 96375; 99285; J1630; J1885; J2060; J2405; J3490; J7030; 36415; 74022; 80053; 80307; 81001; 81025; 83690; 83735; 85025; 87086

== ENCOUNTER 2018-08-21 03:15 | Emergency (ER) | payer BC ==
[~2018-08-21] VITALS: Ht 162.6 cm; Wt 74.8 kg
[~2018-08-21 03:15] MED LIST changes: +ONDA4TAB7 PO
[2018-08-21] MEDS ORDERED: HALOPERIDOL LACTATE 5 MG/ML VIAL. IM ONE (03:45)
[2018-08-21] MEDS ORDERED: CAPSAICIN 0.025% TOPICAL CREAM 60GM TUBE. TP ONE (03:45)
[2018-08-21 04:00] VITALS: BP 163/117
--- NOTE | 2018-08-21 06:01 | PHYS DOC ---
Past Medical History Past Medical History: Anxiety, Cyclic Vomiting, Other Additional Past Medical Histor: PANIC ATTACKS Past Surgical History: Cholecystectomy Alcohol Use: None Drug Use: Marijuana Adult General Chief Complaint Chief Complaint: ABDOMINAL PAIN HPI HPI Patient is a 23 year old female presenting with nausea vomiting abdominal pain. She has a history of cyclic vomiting she is here quite frequently she was here earlier today narcotics were not given and she left the emergency room she says that her pain is no better. She is still smoking marijuana. Sharp epigastric radiates everywhere. Review of Systems Review of Systems Constitutional: Denies fever or chills [] Eyes: Denies change in visual acuity, redness, or eye pain [] HENT: Denies nasal congestion or sore throat [] Respiratory: Denies cough or shortness of breath [] Neurologic: Denies headache, focal weakness or sensory changes [] All other systems were reviewed and found to be within normal limits, except as documented in this note. Current Medications Current Medications Current Medications Medications (Trade) Dose Ordered Sig/Arnaldo Start Time Stop Time Status Last Admin Dose Admin Capsaicin (Zostrix) 1 sami 1X ONCE 08/21/18 03:45 08/21/18 03:49 DC 08/21/18 03:54 1 SAMI Haloperidol Lactate (Haldol Inj) 5 mg 1X ONCE 08/21/18 03:45 08/21/18 03:49 DC 08/21/18 03:45 5 MG Lorazepam (Ativan) 2 mg 1X ONCE 08/21/18 03:45 08/21/18 03:49 DC 08/21/18 03:51 2 MG Allergies Allergies Allergies Coded Allergies Type Severity Reaction Last Updated Verified coconut Allergy Severe Anaphylaxis 01/22/17 Yes Physical Exam Physical Exam Constitutional: Well developed, well nourished, sticking finger down throat on arrival. HENT: Normocephalic, atraumatic, bilateral external ears normal, oropharynx moist, no oral exudates, nose normal. [] Eyes: PERRLA, EOMI, conjunctiva normal, no discharge. [] Neck: Normal range of motion, no tenderness, supple, no stridor. [] lungs: hyperventilating intermittently but then sleeping comfortably when she doesnt know she is being observed. Abdomen: Bowel sounds normal, soft, epigastric tenderness, no masses, no pulsatile masses. [] Skin: Warm, dry, no erythema, no rash. [] Back: No tenderness, no CVA tenderness. [] Extremities: No tenderness, no cyanosis, no clubbing, ROM intact, no edema. [] Neurologic: Alert and oriented X 3, normal motor function, normal sensory function, no focal deficits noted. [] Psychologic: anxiety noted. Current Patient Data Vital Signs Vital Signs Date Time Temp Pulse Resp B/P (MAP) Pulse Ox O2 Delivery O2 Flow Rate FiO2 08/21/18 05:00 108 17 99 Room Air 08/21/18 04:00 163/117 (132) 08/21/18 03:23 98.6 98.6 EKG EKG [] Radiology/Procedures Radiology/Procedures [] Course & Med Decision Making Course & Med Decision Making Pertinent Labs and Imaging studies reviewed. (See chart for details) []Patient has tachycardia but at rest when she is not being observed heart rate is 108 on the remote monitor. Patient has long history of cyclic vomiting syndrome she just had labs less than 24 hours ago I don't think they need to be repeated she was treated with Haldol and Ativan and capsaicin cream check she said that her abdominal pain was slightly better on my reevaluation. I strongly encouraged her to stop smoking marijuana just to see if she might feel better from this is obviously the other treatments that we have done or not working because of her recurrent visits. Patient was discharged in stable condition of note when he going the room and talk to her heart rate did spike up she appeared to have some anxiety with that but on my last evaluation with the patient was at rest the heart rate was 108 Dragon Disclaimer Dragon Disclaimer This electronic medical record was generated, in whole or in part, using a voice recognition dictation system. Departure Departure Impression: Primary Impression: Nausea & vomiting Additional Impression: Cyclic vomiting syndrome Disposition: HOME, SELF-CARE Condition: STABLE Referrals: NO PCP (PCP) Patient Instructions: Cyclic Vomiting Syndrome Additional Instructions: STOP SMOKING MARIJUANA Problem Qualifiers JOEL OCHOA MD Aug 21, 2018 06:01
[2018-08-22] MEDS ORDERED: AMIT25TA PO (10:18)
== END 2018-08-21 05:05 | disposition home or self-care (01) ==
LOC: ER 03:15
DX: K31.89 Other diseases of stomach and duodenum (principal); R11.2 Nausea with vomiting, unspecified; R06.4 Hyperventilation; R10.13 Epigastric pain; F12.20 Cannabis dependence, uncomplicated; F41.9 Anxiety disorder, unspecified; Z90.49 Acquired absence of other specified parts of digestive tract; Z91.018 Allergy to other foods
CPT/HCPCS: 96372; 99284; J1630; J2060

== ENCOUNTER 2018-08-22 07:03 | Inpatient (IN) | payer BC ==
[~2018-08-22] VITALS: Ht 162.6 cm; Wt 61.8 kg
[2018-08-22] MEDS ORDERED: ONDANSETRON PF 4 MG/2 ML VIAL. IV ONE (07:15)
[2018-08-22] MEDS ORDERED: IV NORMAL SALINE 1000ML BAG 1,000 ML IV ONE ×2 (07:15→08:45)
--- NOTE | 2018-08-22 07:47 | PHYS DOC ---
Past Medical History Past Medical History: Anxiety, Cyclic Vomiting, Other Additional Past Medical Histor: PANIC ATTACKS Past Surgical History: Cholecystectomy Alcohol Use: None Drug Use: Marijuana Adult General Chief Complaint Chief Complaint: NAUSEA/VOMITING/DIARRHA HPI HPI Patient is a 23 year old female who presents with nausea and vomiting. Patient is well known to the emergency department and presents several times weekly with cyclic vomiting. Today, she has had onset of nausea and vomiting overnight. She endorses too numerous episodes to count. Nonbloody. Patient states she has had this problem since she was a child. She has endorse using marijuana in the past but the patient does not feel that this is a cause for her symptoms. Immediately on arrival to the ER, the patient is requesting pain medications. She is actively vomiting and is also noted to go to the restroom multiple times. Review of Systems Review of Systems Constitutional: Denies fever or chills HENT: Denies nasal congestion Respiratory: Denies cough or shortness of breath Cardiovascular: No additional information not addressed in HPI GI: + abd pain, n/v : Denies dysuria Musculoskeletal: Denies back pain Integument: Denies rash Neurologic: Denies focal neuro complaints Endocrine: Denies polyuria All other systems were reviewed and found to be within normal limits, except as documented in this note. Current Medications Current Medications Current Medications Medications (Trade) Dose Ordered Sig/Arnaldo Start Time Stop Time Status Last Admin Dose Admin Haloperidol Lactate (Haldol Inj) 5 mg 1X ONCE 08/22/18 08:45 08/22/18 08:46 DC 08/22/18 08:57 5 MG Lorazepam (Ativan) 1 mg 1X ONCE 08/22/18 08:45 08/22/18 08:46 DC 08/22/18 08:57 1 MG Ondansetron HCl (Zofran) 4 mg 1X ONCE 08/22/18 07:15 08/22/18 07:25 DC 08/22/18 08:05 4 MG Sodium Chloride 1,000 ml @ 1,000 mls/hr 1X ONCE 08/22/18 08:45 08/22/18 09:44 Allergies Allergies Allergies Coded Allergies Type Severity Reaction Last Updated Verified coconut Allergy Severe Anaphylaxis 01/22/17 Yes Physical Exam Physical Exam Constitutional: Well developed, well nourished, hyperventilating HENT: Normocephalic, atraumatic, bilateral external ears normal Eyes: PERRLA, EOMI, conjunctiva normal, no discharge Neck: Normal range of motion, no tenderness Cardiovascular: tachy rhythm, regular Lungs & Thorax: Bilateral breath sounds clear Abdomen: Bowel sounds normal, soft, no tenderness Skin: Warm, dry, no erythema, no rash Extremities: No edema Neurologic: Alert and oriented X 3 Psychologic: Affect normal Current Patient Data Vital Signs Vital Signs Date Time Temp Pulse Resp B/P (MAP) Pulse Ox O2 Delivery O2 Flow Rate FiO2 08/22/18 07:52 98.6 104 16 140/80 (100) 97 Room Air 98.6 Lab Values Laboratory Tests Test 08/22/18 07:51 White Blood Count 11.7 x10^3/uL (4.0-11.0) H Red Blood Count 5.47 x10^6/uL (3.50-5.40) H Hemoglobin 16.7 g/dL (12.0-15.5) H Hematocrit 47.1 % (36.0-47.0) H Mean Corpuscular Volume 86 fL (79-100) Mean Corpuscular Hemoglobin 31 pg (25-35) Mean Corpuscular Hemoglobin Concent 35 g/dL (31-37) Red Cell Distribution Width 13.4 % (11.5-14.5) Platelet Count 255 x10^3/uL (140-400) Neutrophils (%) (Auto) 66 % (31-73) Lymphocytes (%) (Auto) 24 % (24-48) Monocytes (%) (Auto) 8 % (0-9) Eosinophils (%) (Auto) 1 % (0-3) Basophils (%) (Auto) 1 % (0-3) Neutrophils # (Auto) 7.7 x10^3uL (1.8-7.7) Lymphocytes # (Auto) 2.8 x10^3/uL (1.0-4.8) Monocytes # (Auto) 1.0 x10^3/uL (0.0-1.1) Eosinophils # (Auto) 0.1 x10^3/uL (0.0-0.7) Basophils # (Auto) 0.1 x10^3/uL (0.0-0.2) Sodium Level 135 mmol/L (136-145) L Potassium Level 3.1 mmol/L (3.5-5.1) L Chloride Level 94 mmol/L (98-107) L Carbon Dioxide Level 22 mmol/L (21-32) Anion Gap 19 (6-14) H Blood Urea Nitrogen 12 mg/dL (7-20) Creatinine 1.1 mg/dL (0.6-1.0) H Estimated GFR (Cockcroft-Gault) 60.5 Glucose Level 127 mg/dL (70-99) H Calcium Level 10.0 mg/dL (8.5-10.1) Laboratory Tests 08/22/18 07:51 Laboratory Tests 08/22/18 07:51 EKG EKG [] Radiology/Procedures Radiology/Procedures [] Course & Med Decision Making Course & Med Decision Making Pertinent Labs and Imaging studies reviewed. (See chart for details) Patient is seen and examined. Immediately bargaining for pain medications. No pain meds ordered. Abdominal exam is benign. Ativan and zofran ordered. Patient also immediately requesting admission. 3rd ER visit in as many days. Will check basic labs, give fluids, meds for symptom relief, and evaluate for medical need for admission. 09:00: Patient was given 2 mg of Ativan and 4 mg of Zofran for nausea but she continued to have some symptoms although she was improved. After that, she was given 1 more milligram of Ativan and 5 mg of Haldol. She did continue to request pain medication in the ER although her abdominal exam is benign. During the periods of time when she is not vomiting, she is lying comfortably on the bed with normal vital signs. During her episodes of emesis, her heart rate does spike to the 130s and 140s. Her heart rate is in the 80s when she is not vomiting. She is noted to have elevated anion gap with some low sodium and chloride. The patient is dehydrated. In the ER, she received 1 L of normal saline. A second liter is ordered. Given her lab derangements and ongoing symptoms, we will admit her to the hospitalist service today. She has been to the ER for the last 3 days in a row. I spoke to Dr. Daniels about this patient who will primarily admit. Patient is agreeable to the admission plan of care. Dragon Disclaimer Dragon Disclaimer This electronic medical record was generated, in whole or in part, using a voice recognition dictation system. Departure Departure Referrals: NO PCP (PCP) ZEINAB PARKS DO Aug 22, 2018 07:47
[2018-08-22 08:08] LABS: BASO # 0.1 x10^3/uL (0.0-0.2); BASO % 1 % (0-3); EOS # 0.1 x10^3/uL (0.0-0.7); EOS % 1 % (0-3); HEMATOCRIT 47.1 % (36.0-47.0); HEMOGLOBIN 16.7 g/dL (12.0-15.5); LYMPH # 2.8 x10^3/uL (1.0-4.8); LYMPH % 24 % (24-48); MEAN CORPUSCULAR HEMOGLOBIN 31 pg (25-35); MEAN CORPUSCULAR HGB CONC 35 g/dL (31-37); MEAN CORPUSCULAR VOLUME 86 fL (79-100); MONO % 8 % (0-9); NEUT # 7.7 x10^3uL (1.8-7.7); NEUT % 66 % (31-73); PLATELET COUNT 255 x10^3/uL (140-400); RED BLOOD COUNT 5.47 x10^6/uL (3.50-5.40); RED CELL DISTRIBUTION WIDTH 13.4 % (11.5-14.5); WHITE BLOOD COUNT 11.7 x10^3/uL (4.0-11.0)
[2018-08-22 08:26] LABS: CREATININE 1.1 mg/dL (0.6-1.0); GFR 60.5; POTASSIUM 3.1 mmol/L (3.5-5.1)
[2018-08-22] MEDS ORDERED: HALOPERIDOL LACTATE 5 MG/ML VIAL. IVP ONE (08:45)
[2018-08-22] MEDS ORDERED: IV NORMAL SALINE 1000ML BAG 1,000 ML IV SCH (09:03)
[2018-08-22] MEDS ORDERED: ONDANSETRON PF 4 MG/2 ML VIAL. IV PRN (09:15)
[2018-08-22] MEDS ORDERED: AMIT25TA PO (10:18)
[2018-08-22 10:20] VITALS: BP 150/98
[2018-08-22] MEDS ORDERED: traMADol 50 MG TABLET PO PRN (11:00)
[2018-08-22] MEDS ORDERED: DOCUSATE SODIUM 100 MG CAPSULE. PO PRN (11:00)
[2018-08-22] MEDS ORDERED: ACETAMINOPHEN 325 MG TABLET. PO PRN (11:00)
[2018-08-22] MEDS: MORPHINE SULFATE 2 MG/ML VIAL. IV PRN ×5 (11:13→22:16)
[2018-08-22 15:00] VITALS: BP 112/70
[2018-08-22] MEDS ORDERED: HYDROcodone/APAP 5/325MG 1 TAB TABLET PO PRN (16:15)
--- NOTE | 2018-08-22 16:18 | PDOC1 ---
History and Physical Date of Admission Date of Admission 08/22/18 Identification/Chief Complaint Chief Complaint N/V, abd pain Source Source: Chart review, Patient History of Present Illness History of Present Illness HPI HPI Patient is a 23 year old female who presents with nausea and vomiting from yesterday. pt came to Hospital every month for same reason, still use marijuana; Pt said N/V non bloody non bilious since last night, cannot find a reason to induce it. has severe abd pain, dull, severe, also has loose BM wo blood. denies fever, chills, cough. Has h/o cyclic vomiting dz, She has endorse using marijuana in the past but the patient does not feel that this is a cause for her symptoms. pt goes to drink water although NPO as ordered, then required Nausea meds from nurse immediately. was dced on 08/17/18. Past Medical History Cardiovascular: No pertinent hx Pulmonary: No pertinent hx GI: Other Heme/Onc: No pertinent hx Psych: Anxiety, Addictions, Panic Rheumatologic: No pertinent hx Endocrine: No pertinent hx, Other Past Surgical History Past Surgical History: Cholecystectomy Family History Family History: Diabetes, Heart Disease, Other Family History: Grandparents Social History Smoke: No ALCOHOL: social Drugs: Marijuana Current Medications Current Medications Current Medications Medications (Trade) Dose Ordered Sig/Arnaldo Start Time Stop Time Status Last Admin Dose Admin Acetaminophen (Tylenol) 650 mg PRN Q6HRS PRN 08/22/18 11:00 Docusate Sodium (Colace) 100 mg PRN DAILY PRN 08/22/18 11:00 Haloperidol Lactate (Haldol Inj) 5 mg 1X ONCE 08/22/18 08:45 08/22/18 08:46 DC 08/22/18 08:57 5 MG Lorazepam (Ativan) 1 mg 1X ONCE 08/22/18 08:45 08/22/18 08:46 DC 08/22/18 08:57 1 MG Morphine Sulfate (Morphine Sulfate) 2 mg PRN Q2HR PRN 08/22/18 11:00 08/22/18 14:40 2 MG Ondansetron HCl (Zofran) 4 mg PRN Q6HRS PRN 08/22/18 11:00 Sodium Chloride 1,000 ml @ 75 mls/hr [id number] 08/22/18 09:03 08/23/18 09:02 08/22/18 11:15 75 MLS/HR Tramadol HCl (Ultram) 50 mg PRN Q6HRS PRN 08/22/18 11:00 Allergies Allergies Allergies Coded Allergies Type Severity Reaction Last Updated Verified coconut Allergy Severe Anaphylaxis 01/22/17 Yes ROS Review of System CONSTITUTIONAL: No fever or chills EYES: No recent changes SKIN: No rash or itching CARDIOVASCULAR: No chest pain, syncope, palpitations, or edema RESPIRATORY: No SOB or cough GASTROINTESTINAL: No nausea, vomiting or abdominal pain NEUROLOGICAL: No headaches or weakness ENDOCRINE: No cold or heat intolerance GENITOURINARY: No urgency or frequency of urination MUSCULOSKELETAL: No back pain or joint pain LYMPHATICS: No enlarged lymph nodes PSYCHIATRIC: No anxiety or depression Physical Exam Physical Exam GEN.: in pain. Alert and oriented. HEENT: Head is normocephalic, atraumatic NECK: Supple. LUNGS: Clear to auscultation. HEART: RRR, S1, S2 present. Peripheral pulses intact ABDOMEN: Soft Positive bowel sounds. diffuse moderate abd tenderness, no guarding or rebound. EXTREMITIES: Without any cyanosis. NEUROLOGIC: Normal speech, normal tone PSYCHIATRIC: Normal affect, normal mood. SKIN: No ulcerations Vitals Vitals Vital Signs Date Time Temp Pulse Resp B/P (MAP) Pulse Ox O2 Delivery O2 Flow Rate FiO2 08/22/18 16:06 100 Room Air 08/22/18 10:20 98.6 119 16 150/98 (115) 98.6 Labs Labs Laboratory Tests Test 08/22/18 07:51 White Blood Count 11.7 x10^3/uL (4.0-11.0) Red Blood Count 5.47 x10^6/uL (3.50-5.40) Hemoglobin 16.7 g/dL (12.0-15.5) Hematocrit 47.1 % (36.0-47.0) Mean Corpuscular Volume 86 fL (79-100) Mean Corpuscular Hemoglobin 31 pg (25-35) Mean Corpuscular Hemoglobin Concent 35 g/dL (31-37) Red Cell Distribution Width 13.4 % (11.5-14.5) Platelet Count 255 x10^3/uL (140-400) Neutrophils (%) (Auto) 66 % (31-73) Lymphocytes (%) (Auto) 24 % (24-48) Monocytes (%) (Auto) 8 % (0-9) Eosinophils (%) (Auto) 1 % (0-3) Basophils (%) (Auto) 1 % (0-3) Neutrophils # (Auto) 7.7 x10^3uL (1.8-7.7) Lymphocytes # (Auto) 2.8 x10^3/uL (1.0-4.8) Monocytes # (Auto) 1.0 x10^3/uL (0.0-1.1) Eosinophils # (Auto) 0.1 x10^3/uL (0.0-0.7) Basophils # (Auto) 0.1 x10^3/uL (0.0-0.2) Sodium Level 135 mmol/L (136-145) Potassium Level 3.1 mmol/L (3.5-5.1) Chloride Level 94 mmol/L (98-107) Carbon Dioxide Level 22 mmol/L (21-32) Anion Gap 19 (6-14) Blood Urea Nitrogen 12 mg/dL (7-20) Creatinine 1.1 mg/dL (0.6-1.0) Estimated GFR (Cockcroft-Gault) 60.5 Glucose Level 127 mg/dL (70-99) Calcium Level 10.0 mg/dL (8.5-10.1) Laboratory Tests Test 08/22/18 07:51 White Blood Count 11.7 x10^3/uL (4.0-11.0) Red Blood Count 5.47 x10^6/uL (3.50-5.40) Hemoglobin 16.7 g/dL (12.0-15.5) Hematocrit 47.1 % (36.0-47.0) Mean Corpuscular Volume 86 fL (79-100) Mean Corpuscular Hemoglobin 31 pg (25-35) Mean Corpuscular Hemoglobin Concent 35 g/dL (31-37) Red Cell Distribution Width 13.4 % (11.5-14.5) Platelet Count 255 x10^3/uL (140-400) Neutrophils (%) (Auto) 66 % (31-73) Lymphocytes (%) (Auto) 24 % (24-48) Monocytes (%) (Auto) 8 % (0-9) Eosinophils (%) (Auto) 1 % (0-3) Basophils (%) (Auto) 1 % (0-3) Neutrophils # (Auto) 7.7 x10^3uL (1.8-7.7) Lymphocytes # (Auto) 2.8 x10^3/uL (1.0-4.8) Monocytes # (Auto) 1.0 x10^3/uL (0.0-1.1) Eosinophils # (Auto) 0.1 x10^3/uL (0.0-0.7) Basophils # (Auto) 0.1 x10^3/uL (0.0-0.2) Sodium Level 135 mmol/L (136-145) Potassium Level 3.1 mmol/L (3.5-5.1) Chloride Level 94 mmol/L (98-107) Carbon Dioxide Level 22 mmol/L (21-32) Anion Gap 19 (6-14) Blood Urea Nitrogen 12 mg/dL (7-20) Creatinine 1.1 mg/dL (0.6-1.0) Estimated GFR (Cockcroft-Gault) 60.5 Glucose Level 127 mg/dL (70-99) Calcium Level 10.0 mg/dL (8.5-10.1) VTE Prophylaxis Ordered VTE Prophylaxis Devices: No VTE Pharmacological Prophylaxi: Yes Assessment/Plan Assessment/Plan abd pain, with h/o cyclic vomiting dz drug abuse with marijuana anxiety h/o panic attacks frequent hosp visitor hypokalemia QUINCY,vasomotor plan; NPO ivf k + d5+ NS 100cc/h cont amtriptyline dvt , gi ppx pain control IVAN TILLEY MD Aug 22, 2018 16:18
[2018-08-22] MEDS ORDERED: ENOXAPARIN 40 MG/0.4 ML SYRINGE. SQ SCH (17:00)
[2018-08-22] MEDS: POTASSIUM CL 20MEQ D5-0.9%NACL 1,000 ML IV SCH (18:00)
[2018-08-22] MEDS: PANTOPRAZOLE IV PUSH 40 MG VIAL. IVP SCH (18:03)
[2018-08-22 19:50] VITALS: BP 106/56
[2018-08-22] MEDS: ONDANSETRON PF 4 MG/2 ML VIAL. IV PRN (20:06)
[2018-08-22] MEDS ORDERED: AMITRIPTYLINE HCL 25 MG TABLET. PO SCH (21:00)
[2018-08-22 23:50] VITALS: BP 115/65
[2018-08-23] MEDS: ONDANSETRON PF 4 MG/2 ML VIAL. IV PRN (01:54)
[2018-08-23] MEDS: MORPHINE SULFATE 2 MG/ML VIAL. IV PRN ×3 (01:54→06:30)
[2018-08-23 03:43] VITALS: BP 95/58
[2018-08-23] MEDS: POTASSIUM CL 20MEQ D5-0.9%NACL 1,000 ML IV SCH ×2 (04:03→12:15)
[2018-08-23 05:15] LABS: BASO % 0 % (0-3); EOS # 0.1 x10^3/uL (0.0-0.7); EOS % 1 % (0-3); HEMATOCRIT 36.2 % (36.0-47.0); HEMOGLOBIN 12.8 g/dL (12.0-15.5); LYMPH # 2.5 x10^3/uL (1.0-4.8); LYMPH % 36 % (24-48); MEAN CORPUSCULAR HEMOGLOBIN 31 pg (25-35); MEAN CORPUSCULAR HGB CONC 35 g/dL (31-37); MEAN CORPUSCULAR VOLUME 88 fL (79-100); MONO # 0.6 x10^3/uL (0.0-1.1); MONO % 9 % (0-9); NEUT # 3.8 x10^3uL (1.8-7.7); NEUT % 54 % (31-73); PLATELET COUNT 151 x10^3/uL (140-400); RED CELL DISTRIBUTION WIDTH 13.2 % (11.5-14.5)
[2018-08-23 05:40] LABS: CALCIUM 8.1 mg/dL (8.5-10.1); CREATININE 0.8 mg/dL (0.6-1.0); GFR 87.4; POTASSIUM 3.3 mmol/L (3.5-5.1)
[2018-08-23 07:40] VITALS: BP 108/77
--- NOTE | 2018-08-23 09:14 | PDOC ---
PROGRESS NOTES History of Present Illness History of Present Illness Assessment/Plan Assessment/Plan abd pain, with h/o cyclic vomiting dz drug abuse with marijuana anxiety h/o panic attacks frequent hosp visitor hypokalemia QUINCY,vasomotor plan; reg diet ivf k + d5+ NS 100cc/h cont amtriptyline dvt , gi ppx pain control d/c narcotics insits she will go home if not given narcotics Vitals Vitals Vital Signs Date Time Temp Pulse Resp B/P (MAP) Pulse Ox O2 Delivery O2 Flow Rate FiO2 08/23/18 07:40 98.2 82 17 108/77 (87) 95 Room Air 98.2 Physical Exam General: Alert, Oriented X3, Cooperative, mild distress Heart: Regular rate, Normal S1 Lungs: Clear, Other Abdomen: Normal bowel sounds, Soft Extremities: No cyanosis Skin: No breakdown, No significant lesion Labs LABS Laboratory Tests Test 08/23/18 04:20 White Blood Count 7.0 x10^3/uL (4.0-11.0) Red Blood Count 4.10 x10^6/uL (3.50-5.40) Hemoglobin 12.8 g/dL (12.0-15.5) Hematocrit 36.2 % (36.0-47.0) Mean Corpuscular Volume 88 fL (79-100) Mean Corpuscular Hemoglobin 31 pg (25-35) Mean Corpuscular Hemoglobin Concent 35 g/dL (31-37) Red Cell Distribution Width 13.2 % (11.5-14.5) Platelet Count 151 x10^3/uL (140-400) Neutrophils (%) (Auto) 54 % (31-73) Lymphocytes (%) (Auto) 36 % (24-48) Monocytes (%) (Auto) 9 % (0-9) Eosinophils (%) (Auto) 1 % (0-3) Basophils (%) (Auto) 0 % (0-3) Neutrophils # (Auto) 3.8 x10^3uL (1.8-7.7) Lymphocytes # (Auto) 2.5 x10^3/uL (1.0-4.8) Monocytes # (Auto) 0.6 x10^3/uL (0.0-1.1) Eosinophils # (Auto) 0.1 x10^3/uL (0.0-0.7) Basophils # (Auto) 0.0 x10^3/uL (0.0-0.2) Sodium Level 141 mmol/L (136-145) Potassium Level 3.3 mmol/L (3.5-5.1) Chloride Level 105 mmol/L (98-107) Carbon Dioxide Level 26 mmol/L (21-32) Anion Gap 10 (6-14) Blood Urea Nitrogen 7 mg/dL (7-20) Creatinine 0.8 mg/dL (0.6-1.0) Estimated GFR (Cockcroft-Gault) 87.4 Glucose Level 112 mg/dL (70-99) Calcium Level 8.1 mg/dL (8.5-10.1) Comment Review of Relevant I have reviewed the following items miguel (where applicable) has been applied. Labs Laboratory Tests Test 08/22/18 07:51 08/23/18 04:20 White Blood Count 11.7 x10^3/uL (4.0-11.0) 7.0 x10^3/uL (4.0-11.0) Red Blood Count 5.47 x10^6/uL (3.50-5.40) 4.10 x10^6/uL (3.50-5.40) Hemoglobin 16.7 g/dL (12.0-15.5) 12.8 g/dL (12.0-15.5) Hematocrit 47.1 % (36.0-47.0) 36.2 % (36.0-47.0) Mean Corpuscular Volume 86 fL (79-100) 88 fL (79-100) Mean Corpuscular Hemoglobin 31 pg (25-35) 31 pg (25-35) Mean Corpuscular Hemoglobin Concent 35 g/dL (31-37) 35 g/dL (31-37) Red Cell Distribution Width 13.4 % (11.5-14.5) 13.2 % (11.5-14.5) Platelet Count 255 x10^3/uL (140-400) 151 x10^3/uL (140-400) Neutrophils (%) (Auto) 66 % (31-73) 54 % (31-73) Lymphocytes (%) (Auto) 24 % (24-48) 36 % (24-48) Monocytes (%) (Auto) 8 % (0-9) 9 % (0-9) Eosinophils (%) (Auto) 1 % (0-3) 1 % (0-3) Basophils (%) (Auto) 1 % (0-3) 0 % (0-3) Neutrophils # (Auto) 7.7 x10^3uL (1.8-7.7) 3.8 x10^3uL (1.8-7.7) Lymphocytes # (Auto) 2.8 x10^3/uL (1.0-4.8) 2.5 x10^3/uL (1.0-4.8) Monocytes # (Auto) 1.0 x10^3/uL (0.0-1.1) 0.6 x10^3/uL (0.0-1.1) Eosinophils # (Auto) 0.1 x10^3/uL (0.0-0.7) 0.1 x10^3/uL (0.0-0.7) Basophils # (Auto) 0.1 x10^3/uL (0.0-0.2) 0.0 x10^3/uL (0.0-0.2) Sodium Level 135 mmol/L (136-145) 141 mmol/L (136-145) Potassium Level 3.1 mmol/L (3.5-5.1) 3.3 mmol/L (3.5-5.1) Chloride Level 94 mmol/L (98-107) 105 mmol/L (98-107) Carbon Dioxide Level 22 mmol/L (21-32) 26 mmol/L (21-32) Anion Gap 19 (6-14) 10 (6-14) Blood Urea Nitrogen 12 mg/dL (7-20) 7 mg/dL (7-20) Creatinine 1.1 mg/dL (0.6-1.0) 0.8 mg/dL (0.6-1.0) Estimated GFR (Cockcroft-Gault) 60.5 87.4 Glucose Level 127 mg/dL (70-99) 112 mg/dL (70-99) Calcium Level 10.0 mg/dL (8.5-10.1) 8.1 mg/dL (8.5-10.1) Magnesium Level 2.1 mg/dL (1.8-2.4) Laboratory Tests Test 08/23/18 04:20 White Blood Count 7.0 x10^3/uL (4.0-11.0) Red Blood Count 4.10 x10^6/uL (3.50-5.40) Hemoglobin 12.8 g/dL (12.0-15.5) Hematocrit 36.2 % (36.0-47.0) Mean Corpuscular Volume 88 fL (79-100) Mean Corpuscular Hemoglobin 31 pg (25-35) Mean Corpuscular Hemoglobin Concent 35 g/dL (31-37) Red Cell Distribution Width 13.2 % (11.5-14.5) Platelet Count 151 x10^3/uL (140-400) Neutrophils (%) (Auto) 54 % (31-73) Lymphocytes (%) (Auto) 36 % (24-48) Monocytes (%) (Auto) 9 % (0-9) Eosinophils (%) (Auto) 1 % (0-3) Basophils (%) (Auto) 0 % (0-3) Neutrophils # (Auto) 3.8 x10^3uL (1.8-7.7) Lymphocytes # (Auto) 2.5 x10^3/uL (1.0-4.8) Monocytes # (Auto) 0.6 x10^3/uL (0.0-1.1) Eosinophils # (Auto) 0.1 x10^3/uL (0.0-0.7) Basophils # (Auto) 0.0 x10^3/uL (0.0-0.2) Sodium Level 141 mmol/L (136-145) Potassium Level 3.3 mmol/L (3.5-5.1) Chloride Level 105 mmol/L (98-107) Carbon Dioxide Level 26 mmol/L (21-32) Anion Gap 10 (6-14) Blood Urea Nitrogen 7 mg/dL (7-20) Creatinine 0.8 mg/dL (0.6-1.0) Estimated GFR (Cockcroft-Gault) 87.4 Glucose Level 112 mg/dL (70-99) Calcium Level 8.1 mg/dL (8.5-10.1) Medications Current Medications Lorazepam (Ativan) 2 mg 1X ONCE IV Last administered on 08/22/18at 08:05; Start 08/22/18 at 07:15; Stop 08/22/18 at 07:25; Status DC Ondansetron HCl (Zofran) 4 mg 1X ONCE IV Last administered on 08/22/18at 08:05 ; Start 08/22/18 at 07:15; Stop 08/22/18 at 07:25; Status DC Sodium Chloride 1,000 ml @ 1,000 mls/hr 1X ONCE IV Last administered on at 08:06; Start 08/22/18 at 07:15; Stop 08/22/18 at 08:14; Status DC Lorazepam (Ativan) 1 mg 1X ONCE IV Last administered on 08/22/18at 08:57; Start 08/22/18 at 08:45; Stop 08/22/18 at 08:46; Status DC Haloperidol Lactate (Haldol Inj) 5 mg 1X ONCE IVP Last administered on at 08:57; Start 08/22/18 at 08:45; Stop 08/22/18 at 08:46; Status DC Sodium Chloride 1,000 ml @ 1,000 mls/hr 1X ONCE IV ; Start 08/22/18 at 08:45; Stop 08/22/18 at 09:44; Status DC Ondansetron HCl (Zofran) 4 mg PRN Q8HRS PRN IV NAUSEA/VOMITING Last administered on 08/22/18at 10:14; Start 08/22/18 at 09:15; Stop 08/22/18 at 11:28 ; Status DC Sodium Chloride 1,000 ml @ 75 mls/hr [id number] IV Last administered on at 11:15; Start 08/22/18 at 09:03; Stop 08/22/18 at 16:12; Status DC Acetaminophen (Tylenol) 650 mg PRN Q6HRS PRN PO FEVER; Start 08/22/18 at 11:00 Ondansetron HCl (Zofran) 4 mg PRN Q6HRS PRN IV NAUSEA/VOMITING Last administered on 08/23/18at 01:54; Start 08/22/18 at 11:00 Morphine Sulfate (Morphine Sulfate) 2 mg PRN Q2HR PRN IV MODERATE TO SEVERE PAIN Last administered on 08/23/18at 06:30; Start 08/22/18 at 11:00 Tramadol HCl (Ultram) 50 mg PRN Q6HRS PRN PO MILD TO MODERATE PAIN; Start 08/22 at 11:00 Docusate Sodium (Colace) 100 mg PRN DAILY PRN PO CONSTIPATION; Start 08/22/18 at 11:00 Amitriptyline HCl (Elavil) 25 mg QHS PO ; Start 08/22/18 at 21:00 Potassium Chloride/Dextrose/ Sod Cl 1,000 ml @ 100 mls/hr Q10H IV Last administered on 08/23/18at 04:03; Start 08/22/18 at 16:15 Acetaminophen/ Hydrocodone Bitart (Lortab 5/325) 1 tab PRN Q4HRS PRN PO MODERATE PAIN; Start 08/22/18 at 16:15 Enoxaparin Sodium (Lovenox 40mg Syringe) 40 mg Q24H SQ ; Start 08/22/18 at 17:00 ; Stop 08/22/18 at 17:03; Status DC Pantoprazole Sodium (PROTONIX VIAL for IV PUSH) 40 mg DAILYAC IVP Last administered on 08/22/18at 18:03; Start 08/22/18 at 16:30 Enoxaparin Sodium (Lovenox 40mg Syringe) 40 mg Q24H SQ ; Start 08/23/18 at 17:00 Active Scripts Active Reported Amitriptyline Hcl 25 Mg Tablet 1 Tab PO QHS Vitals/I & O Vital Sign - Last 24 Hours 08/22/18 08/22/18 08/22/18 08/22/18 10:20 10:30 11:13 14:40 Temp 98.6 98.6 Pulse 119 Resp 16 B/P (MAP) 150/98 (115) Pulse Ox 100 100 100 O2 Delivery Room Air Room Air Room Air 08/22/18 08/22/18 08/22/18 08/22/18 15:00 16:06 18:01 19:50 Temp 98.1 98.1 98.1 98.1 Pulse 108 69 Resp 18 18 B/P (MAP) 112/70 (84) 106/56 (73) Pulse Ox 99 100 95 O2 Delivery Room Air Room Air Room Air Room Air 08/22/18 08/22/18 08/23/18 08/23/18 20:00 23:50 03:43 07:40 Temp 98.2 98.2 98.2 98.2 98.2 98.2 Pulse 70 73 82 Resp 18 18 17 B/P (MAP) 115/65 (82) 95/58 (70) 108/77 (87) Pulse Ox 97 97 95 O2 Delivery Room Air Room Air Room Air Room Air Intake and Output 08/22/18 08/22/18 08/23/18 15:00 23:00 07:00 Intake Total 0 ml 0 ml Balance 0 ml 0 ml VIRGINIA DE GUZMAN MD Aug 23, 2018 09:14
[2018-08-23] MEDS: PANTOPRAZOLE IV PUSH 40 MG VIAL. IVP SCH (09:20)
[2018-08-23 11:04] VITALS: BP 117/76
--- NOTE | 2018-08-23 13:17 | PDOC3 ---
Discharge Summary Date of Admission: Aug 22, 2018 Date of Discharge: Aug 23, 2018 Follow-Up: 3-5 days Admitting Diagnosis comment: History of Present Illness History of Present Illness discharge diagnosis Assessment/Plan abd pain, with h/o cyclic vomiting dz drug abuse with marijuana anxiety h/o panic attacks frequent hosp visitor hypokalemia QUINCY,vasomotor plan; reg diet ivf k + d5+ NS 100cc/h cont amtriptyline dvt , gi ppx pain control d/c narcotics insits she will go home if not given narcotics Vitals Vitals Vital Signs Date Time Temp Pulse Resp B/P (MAP) Pulse Ox O2 Delivery O2 Flow Rate FiO2 08/23/18 07:40 98.2 82 17 108/77 (87) 95 Room Air 98.2 Physical Exam General: Alert, Oriented X3, Cooperative, mild distress Heart: Regular rate, Normal S1 Lungs: Clear, Other Abdomen: Normal bowel sounds, Soft Extremities: No cyanosis Skin: No breakdown, No significant lesion Brief Hospital Course Ms. Fernandez is a 23 old [sex] who presented with [ pain, vomiting] CONDITION AT DISCHARGE: Improved Discharge Medications Current Medications Lorazepam (Ativan) 2 mg 1X ONCE IV Last administered on 08/22/18at 08:05; Start 08/22/18 at 07:15; Stop 08/22/18 at 07:25; Status DC Ondansetron HCl (Zofran) 4 mg 1X ONCE IV Last administered on 08/22/18at 08:05 ; Start 08/22/18 at 07:15; Stop 08/22/18 at 07:25; Status DC Sodium Chloride 1,000 ml @ 1,000 mls/hr 1X ONCE IV Last administered on at 08:06; Start 08/22/18 at 07:15; Stop 08/22/18 at 08:14; Status DC Lorazepam (Ativan) 1 mg 1X ONCE IV Last administered on 08/22/18at 08:57; Start 08/22/18 at 08:45; Stop 08/22/18 at 08:46; Status DC Haloperidol Lactate (Haldol Inj) 5 mg 1X ONCE IVP Last administered on at 08:57; Start 08/22/18 at 08:45; Stop 08/22/18 at 08:46; Status DC Sodium Chloride 1,000 ml @ 1,000 mls/hr 1X ONCE IV ; Start 08/22/18 at 08:45; Stop 08/22/18 at 09:44; Status DC Ondansetron HCl (Zofran) 4 mg PRN Q8HRS PRN IV NAUSEA/VOMITING Last administered on 08/22/18at 10:14; Start 08/22/18 at 09:15; Stop 08/22/18 at 11:28 ; Status DC Sodium Chloride 1,000 ml @ 75 mls/hr [id number] IV Last administered on at 11:15; Start 08/22/18 at 09:03; Stop 08/22/18 at 16:12; Status DC Acetaminophen (Tylenol) 650 mg PRN Q6HRS PRN PO FEVER; Start 08/22/18 at 11:00 Ondansetron HCl (Zofran) 4 mg PRN Q6HRS PRN IV NAUSEA/VOMITING Last administered on 08/23/18at 01:54; Start 08/22/18 at 11:00 Morphine Sulfate (Morphine Sulfate) 2 mg PRN Q2HR PRN IV MODERATE TO SEVERE PAIN Last administered on 08/23/18at 06:30; Start 08/22/18 at 11:00; Stop at 09:29; Status DC Tramadol HCl (Ultram) 50 mg PRN Q6HRS PRN PO MILD TO MODERATE PAIN; Start 08/22 at 11:00 Docusate Sodium (Colace) 100 mg PRN DAILY PRN PO CONSTIPATION; Start 08/22/18 at 11:00 Amitriptyline HCl (Elavil) 25 mg QHS PO ; Start 08/22/18 at 21:00 Potassium Chloride/Dextrose/ Sod Cl 1,000 ml @ 100 mls/hr Q10H IV Last administered on 08/23/18at 04:03; Start 08/22/18 at 16:15 Acetaminophen/ Hydrocodone Bitart (Lortab 5/325) 1 tab PRN Q4HRS PRN PO MODERATE PAIN; Start 08/22/18 at 16:15 Enoxaparin Sodium (Lovenox 40mg Syringe) 40 mg Q24H SQ ; Start 08/22/18 at 17:00 ; Stop 08/22/18 at 17:03; Status DC Pantoprazole Sodium (PROTONIX VIAL for IV PUSH) 40 mg DAILYAC IVP Last administered on 08/23/18at 09:20; Start 08/22/18 at 16:30 Enoxaparin Sodium (Lovenox 40mg Syringe) 40 mg Q24H SQ ; Start 08/23/18 at 17:00 Active Scripts Active Reported Amitriptyline Hcl 25 Mg Tablet 1 Tab PO QHS Vital Signs Vital Signs Date Time Temp Pulse Resp B/P (MAP) Pulse Ox O2 Delivery O2 Flow Rate FiO2 08/23/18 11:04 98.2 100 18 117/76 (90) 96 Room Air 98.2 Labs Laboratory Tests Test 08/22/18 07:51 08/23/18 04:20 White Blood Count 11.7 x10^3/uL (4.0-11.0) 7.0 x10^3/uL (4.0-11.0) Red Blood Count 5.47 x10^6/uL (3.50-5.40) 4.10 x10^6/uL (3.50-5.40) Hemoglobin 16.7 g/dL (12.0-15.5) 12.8 g/dL (12.0-15.5) Hematocrit 47.1 % (36.0-47.0) 36.2 % (36.0-47.0) Mean Corpuscular Volume 86 fL (79-100) 88 fL (79-100) Mean Corpuscular Hemoglobin 31 pg (25-35) 31 pg (25-35) Mean Corpuscular Hemoglobin Concent 35 g/dL (31-37) 35 g/dL (31-37) Red Cell Distribution Width 13.4 % (11.5-14.5) 13.2 % (11.5-14.5) Platelet Count 255 x10^3/uL (140-400) 151 x10^3/uL (140-400) Neutrophils (%) (Auto) 66 % (31-73) 54 % (31-73) Lymphocytes (%) (Auto) 24 % (24-48) 36 % (24-48) Monocytes (%) (Auto) 8 % (0-9) 9 % (0-9) Eosinophils (%) (Auto) 1 % (0-3) 1 % (0-3) Basophils (%) (Auto) 1 % (0-3) 0 % (0-3) Neutrophils # (Auto) 7.7 x10^3uL (1.8-7.7) 3.8 x10^3uL (1.8-7.7) Lymphocytes # (Auto) 2.8 x10^3/uL (1.0-4.8) 2.5 x10^3/uL (1.0-4.8) Monocytes # (Auto) 1.0 x10^3/uL (0.0-1.1) 0.6 x10^3/uL (0.0-1.1) Eosinophils # (Auto) 0.1 x10^3/uL (0.0-0.7) 0.1 x10^3/uL (0.0-0.7) Basophils # (Auto) 0.1 x10^3/uL (0.0-0.2) 0.0 x10^3/uL (0.0-0.2) Sodium Level 135 mmol/L (136-145) 141 mmol/L (136-145) Potassium Level 3.1 mmol/L (3.5-5.1) 3.3 mmol/L (3.5-5.1) Chloride Level 94 mmol/L (98-107) 105 mmol/L (98-107) Carbon Dioxide Level 22 mmol/L (21-32) 26 mmol/L (21-32) Anion Gap 19 (6-14) 10 (6-14) Blood Urea Nitrogen 12 mg/dL (7-20) 7 mg/dL (7-20) Creatinine 1.1 mg/dL (0.6-1.0) 0.8 mg/dL (0.6-1.0) Estimated GFR (Cockcroft-Gault) 60.5 87.4 Glucose Level 127 mg/dL (70-99) 112 mg/dL (70-99) Calcium Level 10.0 mg/dL (8.5-10.1) 8.1 mg/dL (8.5-10.1) Magnesium Level 2.1 mg/dL (1.8-2.4) Laboratory Tests Test 08/23/18 04:20 White Blood Count 7.0 x10^3/uL (4.0-11.0) Red Blood Count 4.10 x10^6/uL (3.50-5.40) Hemoglobin 12.8 g/dL (12.0-15.5) Hematocrit 36.2 % (36.0-47.0) Mean Corpuscular Volume 88 fL (79-100) Mean Corpuscular Hemoglobin 31 pg (25-35) Mean Corpuscular Hemoglobin Concent 35 g/dL (31-37) Red Cell Distribution Width 13.2 % (11.5-14.5) Platelet Count 151 x10^3/uL (140-400) Neutrophils (%) (Auto) 54 % (31-73) Lymphocytes (%) (Auto) 36 % (24-48) Monocytes (%) (Auto) 9 % (0-9) Eosinophils (%) (Auto) 1 % (0-3) Basophils (%) (Auto) 0 % (0-3) Neutrophils # (Auto) 3.8 x10^3uL (1.8-7.7) Lymphocytes # (Auto) 2.5 x10^3/uL (1.0-4.8) Monocytes # (Auto) 0.6 x10^3/uL (0.0-1.1) Eosinophils # (Auto) 0.1 x10^3/uL (0.0-0.7) Basophils # (Auto) 0.0 x10^3/uL (0.0-0.2) Sodium Level 141 mmol/L (136-145) Potassium Level 3.3 mmol/L (3.5-5.1) Chloride Level 105 mmol/L (98-107) Carbon Dioxide Level 26 mmol/L (21-32) Anion Gap 10 (6-14) Blood Urea Nitrogen 7 mg/dL (7-20) Creatinine 0.8 mg/dL (0.6-1.0) Estimated GFR (Cockcroft-Gault) 87.4 Glucose Level 112 mg/dL (70-99) Calcium Level 8.1 mg/dL (8.5-10.1) Allergies Allergies Coded Allergies Type Severity Reaction Last Updated Verified coconut Allergy Severe Anaphylaxis 01/22/17 Yes Disposition/Orders: D/C to Home Patient Instructions d/c planning 34 min VIRGINIA DE GUZMAN MD Aug 23, 2018 13:17
--- NOTE | 2018-08-23 13:18 | DISCH ---
DISCHARGE INSTRUCTIONS Condition on Discharge Condition on Discharge: Stable Activity After Discharge Activity Instructions for Disc: Activity as tolerated Lifting Instructions after Dis: No heavy lifting, No pulling or pushing Exercise Instruction after Dis: Walk 10 min, 3 x per day, Progress as tolerated Driving Instructions after Dis: Do not drive, Do not drive today Weight Bearing Status after Di: As tolerated Diet after Discharge Diet after Discharge: GI Soft, Regular Diet Texture: Regular Liquid Texture: Thin Liquid Swallowing Supervision: None needed Wound Incision Care Wound/Incision Care: No wound care needed Checks after Discharge Checks after discharge: Check blood press - daily Contacting the DRJuhi after DC Call your doctor for: If your condition worsens Treatment/Equipment after DC Adaptive Equipment Issued: None Warfarin Follow-Up Warfarin Follow UP: stop using narcotics VIRGINIA DE GUZMAN MD Aug 23, 2018 13:18
[2018-08-23] MEDS ORDERED: DOCU-109 PO (13:20)
[2018-08-23] MEDS ORDERED: ENOXAPARIN 40 MG/0.4 ML SYRINGE. SQ SCH (17:00)
== END 2018-08-23 13:39 | disposition home or self-care (01) | DRG 640 ==
LOC: ER 07:03 → INTOOBSV 08:50 → OBSVTOIN 08:50 → 6 SOUTH 08:50
PROVIDERS: ADMIT Internal Medicine; ATTEND Internal Medicine
DX: E87.6 Hypokalemia (principal); N17.0 Acute kidney failure with tubular necrosis; F41.0 Panic disorder [episodic paroxysmal anxiety]; F12.10 Cannabis abuse, uncomplicated; Z90.49 Acquired absence of other specified parts of digestive tract; Z91.018 Allergy to other foods; Z83.3 Family history of diabetes mellitus; Z82.49 Family history of ischemic heart disease and other diseases of the circulatory system
CPT/HCPCS: 36415; 74022; 80048; 80053; 80307; 81001; 81025; 83690; 83735; 85025; 87086; 96374; 96375; 96376; C9113; J1630; J2060; J2270; J2405; J7030; 99285-25

== ENCOUNTER 2018-09-08 04:22 | Emergency (ER) | payer BC ==
[~2018-09-08] VITALS: Ht 162.6 cm; Wt 61.2 kg
[~2018-09-08 04:22] MED LIST changes: +DOCU-109 PO
--- NOTE | 2018-09-08 04:49 | PHYS DOC ---
Past Medical History Past Medical History: Other Additional Past Medical Histor: CYCLIC VOMITING SYNDROME, ANXIETY, PANIC DISORDER Past Surgical History: Cholecystectomy Alcohol Use: None Drug Use: Marijuana Adult General Chief Complaint Chief Complaint: NAUSEA/VOMITING/DIARRHA HPI HPI Patient is a 23 year old female who presents with vomiting. This started approximately 24 hours ago. Patient last smoked marijuana 2 days ago. Patient has been unable to tolerate any oral intake. Pain is diffuse and crampy in nature across her abdomen. Hot water seemed to relieve the symptoms but stopped working as well approximately 2300 last night. Patient had some diarrhea at the onset of this discomfort however that has since ceased. There is been no blood in the stool or emesis. No recent travel. No eating of [place] lettuce recently. No fevers.[] Review of Systems Review of Systems Constitutional: Denies fever or chills [] Eyes: Denies change in visual acuity, redness, or eye pain [] HENT: Denies nasal congestion or sore throat [] Respiratory: Denies cough or shortness of breath [] Cardiovascular: No chest pain or palpitations[] GI: See history of present illness[] : Denies dysuria or hematuria [] Musculoskeletal: Denies back pain or joint pain [] Integument: Denies rash or skin lesions [] Neurologic: Denies headache, focal weakness or sensory changes [] Endocrine: Denies polyuria or polydipsia [] All other systems were reviewed and found to be within normal limits, except as documented in this note. Current Medications Current Medications Current Medications Medications (Trade) Dose Ordered Sig/Arnaldo Start Time Stop Time Status Last Admin Dose Admin Capsaicin (Zostrix) 1 sami ONCE ONCE 09/08/18 05:00 09/08/18 05:01 DC 09/08/18 05:15 1 SAMI Haloperidol Lactate (Haldol Inj) 5 mg 1X ONCE 09/08/18 07:00 09/08/18 07:01 DC 09/08/18 06:43 5 MG Ketorolac Tromethamine (Toradol 30mg Vial) 30 mg 1X ONCE 09/08/18 05:00 09/08/18 05:01 DC 09/08/18 05:16 30 MG Lorazepam (Ativan) 1 mg 1X ONCE 09/08/18 08:00 09/08/18 08:01 DC 09/08/18 08:10 1 MG Prochlorperazine Edisylate (Compazine) 5 mg 1X ONCE 09/08/18 05:00 09/08/18 05:01 DC 09/08/18 05:16 5 MG Sodium Chloride 1,000 ml @ 1,000 mls/hr 1X ONCE 09/08/18 07:00 09/08/18 07:59 DC 09/08/18 06:55 1,000 MLS/HR Allergies Allergies Allergies Coded Allergies Type Severity Reaction Last Updated Verified coconut Allergy Severe Anaphylaxis 01/22/17 Yes Physical Exam Physical Exam Constitutional: Well developed, well nourished, mild discomfort, non-toxic appearance. [] HENT: Normocephalic, atraumatic, bilateral external ears normal, oropharynx moist, no oral exudates, nose normal. [] Eyes: PERRLA, EOMI, conjunctiva normal, no discharge. [] Neck: Normal range of motion, no tenderness, supple, no stridor. [] Cardiovascular:Heart rate is tachycardic with a regular rhythm, no murmur [] Lungs & Thorax: Bilateral breath sounds clear to auscultation [] Abdomen: Bowel sounds normal, soft, diffusely tender no masses, no pulsatile masses. [] Skin: Warm, dry, no erythema, no rash. [] Back: No tenderness, no CVA tenderness. [] Extremities: No tenderness, no cyanosis, no clubbing, ROM intact, no edema. [] Neurologic: Alert and oriented X 3, normal motor function, normal sensory function, no focal deficits noted. [] Psychologic: Affect normal, judgement normal, mood normal. [] Current Patient Data Vital Signs Vital Signs Date Time Temp Pulse Resp B/P (MAP) Pulse Ox O2 Delivery O2 Flow Rate FiO2 09/08/18 07:16 120 136/82 (100) 99 Room Air 09/08/18 04:22 98.6 20 98.6 Lab Values Laboratory Tests Test 09/08/18 04:35 09/08/18 04:45 09/08/18 05:20 09/08/18 06:44 Urine Collection Type Unknown Urine Color Quin Urine Clarity Turbid Urine pH 5.5 Urine Specific [place] >=1.030 Urine Protein 100 mg/dL (NEG-TRACE) Urine Glucose (UA) Negative mg/dL (NEG) Urine Ketones (Stick) Negative mg/dL (NEG) Urine Blood Negative (NEG) Urine Nitrite Negative (NEG) Urine Bilirubin Small (NEG) Urine Urobilinogen Dipstick 1.0 mg/dL (0.2 mg/dL) Urine Leukocyte Esterase Small (NEG) Urine RBC 0 /HPF (0-2) Urine WBC 5-10 /HPF (0-4) Urine Squamous Epithelial Cells Many /LPF Urine Bacteria Many /HPF (0-FEW) Urine Mucus Mod /LPF POC Urine HCG, Qualitative Hcg negative (Negative) White Blood Count 15.0 x10^3/uL (4.0-11.0) H Red Blood Count 4.78 x10^6/uL (3.50-5.40) Hemoglobin 14.6 g/dL (12.0-15.5) Hematocrit 42.3 % (36.0-47.0) Mean Corpuscular Volume 89 fL (79-100) Mean Corpuscular Hemoglobin 31 pg (25-35) Mean Corpuscular Hemoglobin Concent 35 g/dL (31-37) Red Cell Distribution Width 13.3 % (11.5-14.5) Platelet Count 243 x10^3/uL (140-400) Neutrophils (%) (Auto) 81 % (31-73) H Lymphocytes (%) (Auto) 13 % (24-48) L Monocytes (%) (Auto) 5 % (0-9) Eosinophils (%) (Auto) 0 % (0-3) Basophils (%) (Auto) 1 % (0-3) Neutrophils # (Auto) 12.1 x10^3uL (1.8-7.7) H Lymphocytes # (Auto) 2.0 x10^3/uL (1.0-4.8) Monocytes # (Auto) 0.7 x10^3/uL (0.0-1.1) Eosinophils # (Auto) 0.1 x10^3/uL (0.0-0.7) Basophils # (Auto) 0.1 x10^3/uL (0.0-0.2) Sodium Level 138 mmol/L (136-145) Potassium Level 3.5 mmol/L (3.5-5.1) Chloride Level 105 mmol/L (98-107) Carbon Dioxide Level 19 mmol/L (21-32) L Anion Gap 14 (6-14) Blood Urea Nitrogen 13 mg/dL (7-20) Creatinine 0.8 mg/dL (0.6-1.0) Estimated GFR (Cockcroft-Gault) 87.4 BUN/Creatinine Ratio 16 (6-20) Glucose Level 130 mg/dL (70-99) H Calcium Level 8.7 mg/dL (8.5-10.1) Total Bilirubin 0.5 mg/dL (0.2-1.0) Aspartate Amino Transferase (AST) 16 U/L (15-37) Alanine Aminotransferase (ALT) 20 U/L (14-59) Alkaline Phosphatase 63 U/L (46-116) Total Protein 7.6 g/dL (6.4-8.2) Albumin 3.9 g/dL (3.4-5.0) Albumin/Globulin Ratio 1.1 (1.0-1.7) Lipase 148 U/L (73-393) Laboratory Tests 09/08/18 05:20 Laboratory Tests 09/08/18 06:44 EKG EKG [] Radiology/Procedures Radiology/Procedures [] Course & Med Decision Making Course & Med Decision Making Pertinent Labs and Imaging studies reviewed. (See chart for details) 06:00: I assumed care of this patient from Dr. Rich. Labs pending. Symptom control pending. I did reexamine this patient. She is very well-known to me. She does appear to be at baseline. Her abdomen is soft and nontender. She is continuing to have vomiting during the examination. Plan Ativan are ordered for symptom relief. 08:25: Patient resting comfortably. Labs are nonacute. She has had no vomiting for the last hour to hour and a half. Plan is for discharge home. Patient is advised to follow-up with her primary care doctor. Come back to the ER for any new or worsening symptoms. Dragon Disclaimer Dragon Disclaimer This electronic medical record was generated, in whole or in part, using a voice recognition dictation system. Departure Departure Disposition: 01 HOME, SELF-CARE Condition: GOOD Referrals: NO PCP (PCP) LUPE RICH DO Sep 08, 2018 04:49 ZEINAB PARKS DO Sep 08, 2018 08:29
[2018-09-08 04:54] LABS: BILIRUBIN,URINE SMALL (NEG); CLARITY,URINE TURBID; COLOR,URINE AMBER; NITRITE,URINE NEGATIVE (NEG); PH,URINE 5.5; PROTEIN,URINE 100 mg/dL (NEG-TRACE)
[2018-09-08] MEDS ORDERED: KETOROLAC 30 MG/ML VIAL. IV ONE (05:00)
[2018-09-08] MEDS ORDERED: IV NORMAL SALINE 1000ML BAG 1,000 ML IV SCH (05:00)
[2018-09-08] MEDS ORDERED: CAPSAICIN 0.025% TOPICAL CREAM 60GM TUBE. TP ONE (05:00)
[2018-09-08] MEDS ORDERED: PROCHLORPERAZINE 10 MG/2 ML VIAL. IV ONE (05:00)
[2018-09-08 05:07] LABS: BACTERIA,URINE MANY /HPF (0-FEW); RBC,URINE 0 /HPF (0-2); SQUAMOUS EPITHELIAL CELL,UR MANY /LPF
[2018-09-08 05:37] LABS: BASO # 0.1 x10^3/uL (0.0-0.2); BASO % 1 % (0-3); EOS # 0.1 x10^3/uL (0.0-0.7); EOS % 0 % (0-3); HEMATOCRIT 42.3 % (36.0-47.0); HEMOGLOBIN 14.6 g/dL (12.0-15.5); LYMPH % 13 % (24-48); MEAN CORPUSCULAR HEMOGLOBIN 31 pg (25-35); MEAN CORPUSCULAR HGB CONC 35 g/dL (31-37); MEAN CORPUSCULAR VOLUME 89 fL (79-100); MONO # 0.7 x10^3/uL (0.0-1.1); MONO % 5 % (0-9); NEUT # 12.1 x10^3uL (1.8-7.7); NEUT % 81 % (31-73); PLATELET COUNT 243 x10^3/uL (140-400); RED BLOOD COUNT 4.78 x10^6/uL (3.50-5.40); RED CELL DISTRIBUTION WIDTH 13.3 % (11.5-14.5)
[2018-09-08] MEDS ORDERED: HALOPERIDOL LACTATE 5 MG/ML VIAL. IVP ONE (07:00)
[2018-09-08] MEDS ORDERED: IV NORMAL SALINE 1000ML BAG 1,000 ML IV ONE (07:00)
[2018-09-08 07:25] LABS: CALCIUM 8.7 mg/dL (8.5-10.1); CREATININE 0.8 mg/dL (0.6-1.0); GFR 87.4; POTASSIUM 3.5 mmol/L (3.5-5.1)
[2018-09-08 07:30] LABS: ALBUMIN 3.9 g/dL (3.4-5.0); ALBUMIN/GLOBULIN RATIO 1.1 (1.0-1.7); TOTAL BILIRUBIN 0.5 mg/dL (0.2-1.0); TOTAL PROTEIN 7.6 g/dL (6.4-8.2)
[2018-09-08 08:16] VITALS: BP 146/92
== END 2018-09-08 08:48 | disposition home or self-care (01) ==
LOC: ER 04:22
DX: R11.10 Vomiting, unspecified (principal); R19.7 Diarrhea, unspecified; F41.9 Anxiety disorder, unspecified; R00.0 Tachycardia, unspecified; R10.84 Generalized abdominal pain; F12.20 Cannabis dependence, uncomplicated; Z90.49 Acquired absence of other specified parts of digestive tract; Z91.018 Allergy to other foods
CPT/HCPCS: 96361; 96374; 96375; 96376; 99283; J0780; J1630; J1885; J2060; J7030; 36415; 80053; 81001; 81025; 83690; 85025; 87086

== ENCOUNTER 2018-09-23 08:35 | Emergency (ER) | payer BC ==
[~2018-09-23] VITALS: Ht 162.6 cm; Wt 61.2 kg
[~2018-09-23 08:35] MED LIST changes: -HYDR-2758 PO; +HYDR-2761 PO
--- NOTE | 2018-09-23 09:07 | PHYS DOC ---
Past Medical History Past Medical History: Anxiety, Other Additional Past Medical Histor: CYCLIC VOMITING SYNDROME, ANXIETY, PANIC DISORDER Past Surgical History: Cholecystectomy Alcohol Use: None Drug Use: Marijuana Adult General Chief Complaint Chief Complaint: NAUSEA/VOMITING/DIARRHA HPI HPI Patient is a 23 year old female who presents to the emergency room via EMS today with complaints of nausea and vomiting since 10:00 last night. Patient reports she has a history of cyclic vomiting. She states that she last smoked marijuana last night and the symptoms only increased. She also reports epigastric pain in addition to nausea and vomiting. She denies any fever, diarrhea, or back pain. She currently reports her pain as a 10 out of 10 on the pain scale and complains of anxiety in addition to her complaints. Review of Systems Review of Systems Constitutional: Denies fever or chills [] Respiratory: Denies cough or shortness of breath [] GI: See history of present illness : Denies dysuria or hematuria [] Integument: Denies rash or skin lesions [] Neurologic: Denies headache, focal weakness or sensory changes [] All other systems were reviewed and found to be within normal limits, except as documented in this note. Current Medications Current Medications Current Medications Medications (Trade) Dose Ordered Sig/Arnaldo Start Time Stop Time Status Last Admin Dose Admin Capsaicin (Zostrix) 1 sami 1X ONCE 09/23/18 09:00 09/23/18 09:02 DC 09/23/18 09:37 1 SAMI Lorazepam (Ativan) 1 mg 1X ONCE 09/23/18 09:00 09/23/18 09:02 DC 09/23/18 09:10 1 MG Ondansetron HCl (Zofran) 4 mg 1X ONCE 09/23/18 08:45 09/23/18 08:46 DC 09/23/18 09:10 4 MG Sodium Chloride 1,000 ml @ 1,000 mls/hr 1X ONCE 09/23/18 08:45 09/23/18 09:44 DC 09/23/18 09:10 1,000 MLS/HR Allergies Allergies Allergies Coded Allergies Type Severity Reaction Last Updated Verified coconut Allergy Severe Anaphylaxis 01/22/17 Yes Physical Exam Physical Exam Constitutional: Well developed, well nourished, anxious, non-toxic appearance. [ ] HENT: Normocephalic, atraumatic, bilateral external ears normal, oropharynx moist, no oral exudates, nose normal. [] Eyes: conjunctiva normal, no discharge. [] Neck: Normal range of motion Cardiovascular:Heart rate regular rhythm, no murmur [] Lungs & Thorax: Bilateral breath sounds clear to auscultation [] Abdomen: Bowel sounds normal, soft, epigastric tenderness, no masses, no pulsatile masses. [] Skin: Warm, dry, no erythema, no rash. [] Extremities: No cyanosis, no clubbing, ROM intact, no edema. [] Neurologic: Alert and oriented X 3, normal motor function, normal sensory function, no focal deficits noted. [] Psychologic: Affect anxious, judgement normal, mood normal. [] Current Patient Data Vital Signs Vital Signs Date Time Temp Pulse Resp B/P (MAP) Pulse Ox O2 Delivery O2 Flow Rate FiO2 09/23/18 08:35 98.3 103 22 142/89 (106) 97 Room Air 98.3 Lab Values Laboratory Tests Test 09/23/18 08:52 09/23/18 08:55 09/23/18 09:00 POC Urine HCG, Qualitative Hcg negative (Negative) Urine Collection Type Unknown Urine Color Quin Urine Clarity Cloudy Urine pH 5.0 Urine Specific [place] 1.025 Urine Protein Negative mg/dL (NEG-TRACE) Urine Glucose (UA) Negative mg/dL (NEG) Urine Ketones (Stick) Negative mg/dL (NEG) Urine Blood Negative (NEG) Urine Nitrite Negative (NEG) Urine Bilirubin Small (NEG) Urine Urobilinogen Dipstick 0.2 mg/dL (0.2 mg/dL) Urine Leukocyte Esterase Trace (NEG) Urine RBC 0 /HPF (0-2) Urine WBC 1-4 /HPF (0-4) Urine Squamous Epithelial Cells Many /LPF Urine Bacteria Few /HPF (0-FEW) Urine Mucus Mod /LPF White Blood Count 9.4 x10^3/uL (4.0-11.0) Red Blood Count 4.57 x10^6/uL (3.50-5.40) Hemoglobin 13.9 g/dL (12.0-15.5) Hematocrit 39.9 % (36.0-47.0) Mean Corpuscular Volume 87 fL (79-100) Mean Corpuscular Hemoglobin 30 pg (25-35) Mean Corpuscular Hemoglobin Concent 35 g/dL (31-37) Red Cell Distribution Width 13.4 % (11.5-14.5) Platelet Count 316 x10^3/uL (140-400) Neutrophils (%) (Auto) 68 % (31-73) Lymphocytes (%) (Auto) 23 % (24-48) L Monocytes (%) (Auto) 8 % (0-9) Eosinophils (%) (Auto) 1 % (0-3) Basophils (%) (Auto) 1 % (0-3) Neutrophils # (Auto) 6.4 x10^3uL (1.8-7.7) Lymphocytes # (Auto) 2.1 x10^3/uL (1.0-4.8) Monocytes # (Auto) 0.7 x10^3/uL (0.0-1.1) Eosinophils # (Auto) 0.1 x10^3/uL (0.0-0.7) Basophils # (Auto) 0.1 x10^3/uL (0.0-0.2) Sodium Level 138 mmol/L (136-145) Potassium Level 3.5 mmol/L (3.5-5.1) Chloride Level 102 mmol/L (98-107) Carbon Dioxide Level 23 mmol/L (21-32) Anion Gap 13 (6-14) Blood Urea Nitrogen 8 mg/dL (7-20) Creatinine 0.8 mg/dL (0.6-1.0) Estimated GFR (Cockcroft-Gault) 87.4 BUN/Creatinine Ratio 10 (6-20) Glucose Level 145 mg/dL (70-99) H Calcium Level 9.3 mg/dL (8.5-10.1) Total Bilirubin 0.5 mg/dL (0.2-1.0) Aspartate Amino Transferase (AST) 14 U/L (15-37) L Alanine Aminotransferase (ALT) 19 U/L (14-59) Alkaline Phosphatase 73 U/L (46-116) Total Protein 8.0 g/dL (6.4-8.2) Albumin 3.7 g/dL (3.4-5.0) Albumin/Globulin Ratio 0.9 (1.0-1.7) L Laboratory Tests 09/23/18 09:00 Laboratory Tests 09/23/18 09:00 EKG EKG [] Radiology/Procedures Radiology/Procedures [] Course & Med Decision Making Course & Med Decision Making Pertinent Labs and Imaging studies reviewed. (See chart for details) dx: cyclic vomiting syndrome Pt was given 1L ns, 4 mg of zofran, 1 mg of ativan, and topical capsaicin cream was applied to abdomen. Pt reports relief of sx after the topical cream was applied. Labs WNL. Pt was instructed to continue to use topical capsaicin cream TID prn and to discontinue the use of marijuana and other illegal drugs as they may cause or permanent disability Patient verbalized an understanding of home care, medications, follow-up, and return to ED instructions and was in agreement with the plan of care. [] Dragon Disclaimer Dragon Disclaimer This electronic medical record was generated, in whole or in part, using a voice recognition dictation system. Departure Departure Impression: Primary Impression: Cyclical vomiting with nausea Disposition: HOME, SELF-CARE Condition: STABLE Referrals: NO PCP (PCP) Patient Instructions: Cyclic Vomiting Syndrome Additional Instructions: STOP USING MARIJUANA AND OTHER ILLICIT DRUGS THEY MAY CAUSE OR PERMANENT DISABILITY. Use the topical capsaicin cream every 8 hours as needed for nausea/vomiting. Follow up with your primary care doctor if symptoms persist , return to the ER if symptoms worsen. Problem Qualifiers Primary Impression: Cyclical vomiting with nausea Vomiting Intractability: unspecified Qualified Codes: G43.A0 - Cyclical vomiting, not intractable PRAVEEN DENNIS APRN Sep 23, 2018 09:07
[2018-09-23] MEDS: IV NORMAL SALINE 1000ML BAG 1,000 ML IV ONE (09:10)
[2018-09-23] MEDS: ONDANSETRON PF 4 MG/2 ML VIAL. IV ONE ×2 (09:10→11:20)
[2018-09-23 09:18] LABS: BASO # 0.1 x10^3/uL (0.0-0.2); BASO % 1 % (0-3); EOS # 0.1 x10^3/uL (0.0-0.7); EOS % 1 % (0-3); HEMATOCRIT 39.9 % (36.0-47.0); HEMOGLOBIN 13.9 g/dL (12.0-15.5); LYMPH # 2.1 x10^3/uL (1.0-4.8); LYMPH % 23 % (24-48); MEAN CORPUSCULAR HEMOGLOBIN 30 pg (25-35); MEAN CORPUSCULAR HGB CONC 35 g/dL (31-37); MEAN CORPUSCULAR VOLUME 87 fL (79-100); MONO # 0.7 x10^3/uL (0.0-1.1); MONO % 8 % (0-9); NEUT # 6.4 x10^3uL (1.8-7.7); NEUT % 68 % (31-73); PLATELET COUNT 316 x10^3/uL (140-400); RED BLOOD COUNT 4.57 x10^6/uL (3.50-5.40); RED CELL DISTRIBUTION WIDTH 13.4 % (11.5-14.5); WHITE BLOOD COUNT 9.4 x10^3/uL (4.0-11.0)
[2018-09-23 09:31] LABS: CALCIUM 9.3 mg/dL (8.5-10.1); CREATININE 0.8 mg/dL (0.6-1.0); GFR 87.4; POTASSIUM 3.5 mmol/L (3.5-5.1)
[2018-09-23] MEDS: CAPSAICIN 0.025% TOPICAL CREAM 60GM TUBE. TP ONE (09:37)
[2018-09-23 09:38] LABS: ALBUMIN 3.7 g/dL (3.4-5.0); ALBUMIN/GLOBULIN RATIO 0.9 (1.0-1.7); TOTAL BILIRUBIN 0.5 mg/dL (0.2-1.0)
[2018-09-23 09:39] LABS: BILIRUBIN,URINE SMALL (NEG); CLARITY,URINE CLOUDY; COLOR,URINE AMBER; NITRITE,URINE NEGATIVE (NEG); PROTEIN,URINE NEGATIVE (NEG-TRACE); UROBILINOGEN,URINE 0.2 mg/dL (0.2 mg/dL)
[2018-09-23 09:41] LABS: BACTERIA,URINE FEW /HPF (0-FEW); RBC,URINE 0 /HPF (0-2); SQUAMOUS EPITHELIAL CELL,UR MANY /LPF
[2018-09-23 10:35] VITALS: BP 119/74
== END 2018-09-23 11:53 | disposition home or self-care (01) ==
LOC: ER 08:35
DX: G43.A0 Cyclical vomiting, in migraine, not intractable (principal); F41.9 Anxiety disorder, unspecified; R10.13 Epigastric pain; Z90.49 Acquired absence of other specified parts of digestive tract; F12.10 Cannabis abuse, uncomplicated; Z91.018 Allergy to other foods
CPT/HCPCS: 36415; 80053; 81001; 81025; 85025; 87086; 96361; 96374; 96375; 96376; 99284; J2060; J2405; J7030; 99283-25

== ENCOUNTER 2018-09-26 04:57 | Emergency (ER) | payer BC ==
[~2018-09-26] VITALS: Ht 162.6 cm; Wt 61.2 kg
[2018-09-26 05:23] LABS: BILIRUBIN,URINE SMALL (NEG); CLARITY,URINE TURBID; COLOR,URINE AMBER; NITRITE,URINE NEGATIVE (NEG); PH,URINE 5.5; PROTEIN,URINE NEGATIVE (NEG-TRACE); UROBILINOGEN,URINE 0.2 mg/dL (0.2 mg/dL)
--- NOTE | 2018-09-26 05:23 | PHYS DOC ---
Past Medical History Past Medical History: Anxiety, Cyclic Vomiting, Other Additional Past Medical Histor: CYCLIC VOMITING SYNDROME, ANXIETY, PANIC DISORDER Past Surgical History: Cholecystectomy Alcohol Use: None Drug Use: Marijuana Adult General Chief Complaint Chief Complaint: NAUSEA/VOMITING/DIARRHA HPI HPI Patient is a 23-year-old female who presents with report of nausea and vomiting and abdominal pain that started yesterday. Patient states that she has not been able to keep anything down since that time. Patient has history of cyclic vomiting syndrome which is believed to be associated with marijuana use. Patient indicates that her last use of marijuana was this past . She rates her pain to be a 10 out of 10 and states that nothing is helping with her symptoms. Patient also states that she has a history of anxiety and is feeling very anxious at this time. Review of Systems Review of Systems Constitutional: Denies fever or chills [] Respiratory: Denies cough or shortness of breath [] Cardiovascular: No additional information not addressed in HPI [] GI: Complains of upper abdominal pain with nausea and vomiting. Denies diarrhea [] Integument: Denies rash or skin lesions [] Neurologic: Denies headache, focal weakness or sensory changes [] All other systems were reviewed and found to be within normal limits, except as documented in this note. Current Medications Current Medications Current Medications Medications (Trade) Dose Ordered Sig/Arnaldo Start Time Stop Time Status Last Admin Dose Admin Haloperidol Lactate (Haldol Inj) 5 mg 1X ONCE 09/26/18 06:30 09/26/18 06:31 DC 09/26/18 06:16 5 MG Lorazepam (Ativan) 1 mg 1X ONCE 09/26/18 05:30 09/26/18 05:31 DC 09/26/18 05:34 1 MG Ondansetron HCl (Zofran) 4 mg 1X ONCE 09/26/18 05:30 09/26/18 05:31 DC 09/26/18 05:33 4 MG Sodium Chloride 1,000 ml @ 1,000 mls/hr Q1H 09/26/18 05:30 09/26/18 06:30 DC 09/26/18 05:32 1,000 MLS/HR Allergies Allergies Allergies Coded Allergies Type Severity Reaction Last Updated Verified coconut Allergy Severe Anaphylaxis 01/22/17 Yes Physical Exam Physical Exam Constitutional: Well developed, well nourished, appears anxious and uncomfortable, non-toxic appearance. [] HENT: Normocephalic, atraumatic, bilateral external ears normal, oropharynx moist, no oral exudates, nose normal. [] Eyes: PERRLA, EOMI, conjunctiva normal, no discharge. [] Neck: Normal range of motion, no tenderness, supple. [] Cardiovascular: Mildly tachycardic rate with regular rhythm[] Lungs & Thorax: Bilateral breath sounds clear to auscultation [] Abdomen: Bowel sounds normal, soft, with moderate reported epigastric tenderness. [] Skin: Warm, dry, no erythema, no rash. [] Extremities: No tenderness, no cyanosis, no clubbing, ROM intact, no edema. [] Neurologic: Alert and oriented X 3, normal motor function, normal sensory function, no focal deficits noted. [] Current Patient Data Vital Signs Vital Signs Date Time Temp Pulse Resp B/P (MAP) Pulse Ox O2 Delivery O2 Flow Rate FiO2 09/26/18 06:36 110 14 135/82 (99) 98 Room Air 09/26/18 05:00 98.1 98.1 Lab Values Laboratory Tests Test 09/26/18 05:00 09/26/18 05:20 Urine Collection Type Unknown Urine Color Quin Urine Clarity Turbid Urine pH 5.5 Urine Specific [place] >=1.030 Urine Protein Negative mg/dL (NEG-TRACE) Urine Glucose (UA) Negative mg/dL (NEG) Urine Ketones (Stick) Negative mg/dL (NEG) Urine Blood Negative (NEG) Urine Nitrite Negative (NEG) Urine Bilirubin Small (NEG) Urine Urobilinogen Dipstick 0.2 mg/dL (0.2 mg/dL) Urine Leukocyte Esterase Small (NEG) Urine RBC 0 /HPF (0-2) Urine WBC 1-4 /HPF (0-4) Urine Squamous Epithelial Cells Many /LPF Urine Amorphous Sediment Present /HPF Urine Bacteria Few /HPF (0-FEW) Urine Mucus Mod /LPF Urine Test Negative (NEG) Urine Opiates Screen Neg (NEG) Urine Methadone Screen Neg (NEG) Urine Barbiturates Neg (NEG) Urine Phencyclidine Screen Neg (NEG) Urine Amphetamine/Methamphetamine Neg (NEG) Urine Benzodiazepines Screen Neg (NEG) Urine Cocaine Screen Neg (NEG) Urine Cannabinoids Screen Pos (NEG) Urine Ethyl Alcohol Neg (NEG) White Blood Count 10.6 x10^3/uL (4.0-11.0) Red Blood Count 4.43 x10^6/uL (3.50-5.40) Hemoglobin 13.4 g/dL (12.0-15.5) Hematocrit 38.8 % (36.0-47.0) Mean Corpuscular Volume 88 fL (79-100) Mean Corpuscular Hemoglobin 30 pg (25-35) Mean Corpuscular Hemoglobin Concent 35 g/dL (31-37) Red Cell Distribution Width 13.5 % (11.5-14.5) Platelet Count 320 x10^3/uL (140-400) Neutrophils (%) (Auto) 73 % (31-73) Lymphocytes (%) (Auto) 19 % (24-48) L Monocytes (%) (Auto) 6 % (0-9) Eosinophils (%) (Auto) 1 % (0-3) Basophils (%) (Auto) 1 % (0-3) Neutrophils # (Auto) 7.7 x10^3uL (1.8-7.7) Lymphocytes # (Auto) 2.0 x10^3/uL (1.0-4.8) Monocytes # (Auto) 0.6 x10^3/uL (0.0-1.1) Eosinophils # (Auto) 0.1 x10^3/uL (0.0-0.7) Basophils # (Auto) 0.1 x10^3/uL (0.0-0.2) Sodium Level 140 mmol/L (136-145) Potassium Level 3.6 mmol/L (3.5-5.1) Chloride Level 103 mmol/L (98-107) Carbon Dioxide Level 25 mmol/L (21-32) Anion Gap 12 (6-14) Blood Urea Nitrogen 8 mg/dL (7-20) Creatinine 0.8 mg/dL (0.6-1.0) Estimated GFR (Cockcroft-Gault) 87.4 BUN/Creatinine Ratio 10 (6-20) Glucose Level 137 mg/dL (70-99) H Calcium Level 9.2 mg/dL (8.5-10.1) Total Bilirubin 0.4 mg/dL (0.2-1.0) Aspartate Amino Transferase (AST) 24 U/L (15-37) Alanine Aminotransferase (ALT) 22 U/L (14-59) Alkaline Phosphatase 74 U/L (46-116) Total Protein 7.8 g/dL (6.4-8.2) Albumin 3.7 g/dL (3.4-5.0) Albumin/Globulin Ratio 0.9 (1.0-1.7) L Lipase 122 U/L (73-393) Laboratory Tests 09/26/18 05:20 Laboratory Tests 09/26/18 05:20 EKG EKG [] Radiology/Procedures Radiology/Procedures [] Course & Med Decision Making Course & Med Decision Making Pertinent Labs and Imaging studies reviewed. (See chart for details) []0616: FRANK to Dr. Obrien from Dr. Rodrigues 0717: Pt requesting pain medication. Pt very well known to this facility for cyclical vomiting. She has been given ativan and Haldol 5mg x2. On my evaluation she is requesting pain medication but denies any pain. She states "I need something for the anxiety" She denies any SI. I advised pt that cyclical vomiting is not treated with pain medication. She is now requesting discharge. She has periods of tachycardia related to agitation but at rest has a normal HR. She has a benign abd. We discussed supportive care including advancing diet slowly and avoiding Marijuana. Dragon Disclaimer Dragon Disclaimer This electronic medical record was generated, in whole or in part, using a voice recognition dictation system. Departure Departure Impression: Primary Impression: Cyclical vomiting with nausea Disposition: HOME, SELF-CARE Condition: IMPROVED Referrals: NO PCP (PCP) Patient Instructions: Cyclic Vomiting Syndrome Additional Instructions: Thank you for coming to [facility]. Please repeat the attached handouts. Please follow-up with your primary care physician. Return to the ER if your symptoms worsen or you have any other concerns. Please drink plenty of fluids today. CAROLIN RODRIGUES Jr. DO Sep 26, 2018 05:23 ISIDRA OBRIEN DO Sep 26, 2018 07:21
[2018-09-26 05:30] LABS: AMPHETAMINE/METHAMPHETAMINE NEG (NEG); BARBITURATES NEG (NEG); BENZODIAZEPINES NEG (NEG); CANNABINOIDS POS (NEG); COCAINE NEG (NEG); METHADONE NEG (NEG); OPIATES NEG (NEG); PHENCYCLIDINE NEG (NEG)
[2018-09-26] MEDS: IV NORMAL SALINE 1000ML BAG 1,000 ML IV SCH (05:32)
[2018-09-26] MEDS: ONDANSETRON PF 4 MG/2 ML VIAL. IV ONE (05:33)
[2018-09-26] MEDS: HALOPERIDOL LACTATE 5 MG/ML VIAL. IVP ONE ×2 (05:34→06:16)
[2018-09-26 05:46] LABS: RBC,URINE 0 /HPF (0-2); SQUAMOUS EPITHELIAL CELL,UR MANY /LPF
[2018-09-26 05:46] LABS: CALCIUM 9.2 mg/dL (8.5-10.1); CREATININE 0.8 mg/dL (0.6-1.0); GFR 87.4; POTASSIUM 3.6 mmol/L (3.5-5.1)
[2018-09-26 05:47] LABS: AMORPHOUS SEDIMENT,UR PRESENT /HPF; BACTERIA,URINE FEW /HPF (0-FEW)
[2018-09-26 05:49] LABS: U PREG PATIENT NEGATIVE (NEG)
[2018-09-26 05:53] LABS: ALBUMIN 3.7 g/dL (3.4-5.0); ALBUMIN/GLOBULIN RATIO 0.9 (1.0-1.7); TOTAL BILIRUBIN 0.4 mg/dL (0.2-1.0); TOTAL PROTEIN 7.8 g/dL (6.4-8.2)
[2018-09-26 06:44] LABS: BASO # 0.1 x10^3/uL (0.0-0.2); BASO % 1 % (0-3); EOS # 0.1 x10^3/uL (0.0-0.7); EOS % 1 % (0-3); HEMATOCRIT 38.8 % (36.0-47.0); HEMOGLOBIN 13.4 g/dL (12.0-15.5); LYMPH % 19 % (24-48); MEAN CORPUSCULAR HEMOGLOBIN 30 pg (25-35); MEAN CORPUSCULAR HGB CONC 35 g/dL (31-37); MEAN CORPUSCULAR VOLUME 88 fL (79-100); MONO # 0.6 x10^3/uL (0.0-1.1); MONO % 6 % (0-9); NEUT # 7.7 x10^3uL (1.8-7.7); NEUT % 73 % (31-73); PLATELET COUNT 320 x10^3/uL (140-400); RED BLOOD COUNT 4.43 x10^6/uL (3.50-5.40); RED CELL DISTRIBUTION WIDTH 13.5 % (11.5-14.5); WHITE BLOOD COUNT 10.6 x10^3/uL (4.0-11.0)
[2018-09-26 07:06] VITALS: BP 115/72
== END 2018-09-26 07:25 | disposition home or self-care (01) ==
LOC: ER 04:57
DX: G43.A0 Cyclical vomiting, in migraine, not intractable (principal); R00.0 Tachycardia, unspecified; R10.13 Epigastric pain; R10.10 Upper abdominal pain, unspecified; F12.20 Cannabis dependence, uncomplicated; F41.9 Anxiety disorder, unspecified; Z91.018 Allergy to other foods
CPT/HCPCS: 36415; 80053; 80307; 81001; 81025; 83690; 85025; 87086; 96361; 96374; 96375; 99283; J1630; J2060; J2405; J7030

== ENCOUNTER 2018-10-12 07:25 | Emergency (ER) | payer BC ==
[~2018-10-12] VITALS: Ht 162.6 cm; Wt 61.2 kg
[2018-10-12 08:13] LABS: BASO # 0.1 x10^3/uL (0.0-0.2); BASO % 1 % (0-3); EOS # 0.1 x10^3/uL (0.0-0.7); EOS % 1 % (0-3); HEMATOCRIT 40.8 % (36.0-47.0); HEMOGLOBIN 14.4 g/dL (12.0-15.5); LYMPH # 3.8 x10^3/uL (1.0-4.8); LYMPH % 36 % (24-48); MEAN CORPUSCULAR HEMOGLOBIN 31 pg (25-35); MEAN CORPUSCULAR HGB CONC 35 g/dL (31-37); MEAN CORPUSCULAR VOLUME 87 fL (79-100); MONO # 0.7 x10^3/uL (0.0-1.1); MONO % 7 % (0-9); NEUT # 5.9 x10^3uL (1.8-7.7); NEUT % 56 % (31-73); PLATELET COUNT 230 x10^3/uL (140-400); RED BLOOD COUNT 4.68 x10^6/uL (3.50-5.40); WHITE BLOOD COUNT 10.6 x10^3/uL (4.0-11.0)
[2018-10-12 08:22] LABS: CREATININE 0.6 mg/dL (0.6-1.0); GFR 121.8; POTASSIUM 4.2 mmol/L (3.5-5.1)
[2018-10-12 08:28] LABS: ALBUMIN 4.3 g/dL (3.4-5.0); ALBUMIN/GLOBULIN RATIO 1.1 (1.0-1.7); TOTAL BILIRUBIN 0.6 mg/dL (0.2-1.0); TOTAL PROTEIN 8.1 g/dL (6.4-8.2)
[2018-10-12] MEDS ORDERED: HALOPERIDOL LACTATE 5 MG/ML VIAL. IM ONE (08:30)
[2018-10-12] MEDS ORDERED: IV NORMAL SALINE 1000ML BAG 1,000 ML IV ONE (08:30)
--- NOTE | 2018-10-12 08:44 | PHYS DOC ---
Past Medical History Past Medical History: Anxiety, Cyclic Vomiting, Other Additional Past Medical Histor: CYCLIC VOMITING SYNDROME, ANXIETY, PANIC DISORDER Past Surgical History: Cholecystectomy Alcohol Use: None Drug Use: Marijuana Adult General Chief Complaint Chief Complaint: NAUSEA/VOMITING/DIARRHA HPI HPI Patient is a 23 year old f with cc of vomiting. hx of same started yesterday frequent visits hx limited by active vomiting. Review of Systems Review of Systems limited by patient cooperation Current Medications Current Medications Current Medications Medications (Trade) Dose Ordered Sig/Arnaldo Start Time Stop Time Status Last Admin Dose Admin Haloperidol Lactate (Haldol Inj) 5 mg 1X ONCE 10/12/18 08:30 10/12/18 08:31 DC 10/12/18 08:22 5 MG Ketorolac Tromethamine (Toradol 15mg Vial) 15 mg 1X ONCE 10/12/18 09:30 10/12/18 09:31 Lorazepam (Ativan) 2 mg 1X ONCE 10/12/18 09:30 10/12/18 09:31 Sodium Chloride 1,000 ml @ 1,000 mls/hr 1X ONCE 10/12/18 08:30 10/12/18 09:29 10/12/18 08:21 1,000 MLS/HR Allergies Allergies Allergies Coded Allergies Type Severity Reaction Last Updated Verified coconut Allergy Severe Anaphylaxis 01/22/17 Yes Physical Exam Physical Exam Constitutional: Well developed, actively viomiting. HENT: Normocephalic, atraumatic, bilateral external ears normal, oropharynx moist, no oral exudates, nose normal. [] Eyes: PERRLA, EOMI, conjunctiva normal, no discharge. [] Neck: Normal range of motion, no tenderness, supple, no stridor. [] Cardiovascular mild tachycardia Lungs & Thorax: Bilateral breath sounds clear to auscultation [] Abdomen: Bowel sounds normal, soft, diffiuclt exam but no focal tenderness, no masses, no pulsatile masses. [] Skin: Warm, dry, no erythema, no rash. [] Back: No tenderness, no CVA tenderness. [] Extremities: No tenderness, no cyanosis, no clubbing, ROM intact, no edema. [] Neurologic: Alert and oriented X 3, normal motor function, normal sensory function, no focal deficits noted. [] Psychologic: Affect normal, judgement normal, mood normal. [] Current Patient Data Vital Signs Vital Signs Date Time Temp Pulse Resp B/P (MAP) Pulse Ox O2 Delivery O2 Flow Rate FiO2 10/12/18 07:30 98.0 83 20 154/110 (125) 100 Room Air 98.0 heart rate at rest is noraml Lab Values Laboratory Tests Test 10/12/18 07:50 White Blood Count 10.6 x10^3/uL (4.0-11.0) Red Blood Count 4.68 x10^6/uL (3.50-5.40) Hemoglobin 14.4 g/dL (12.0-15.5) Hematocrit 40.8 % (36.0-47.0) Mean Corpuscular Volume 87 fL (79-100) Mean Corpuscular Hemoglobin 31 pg (25-35) Mean Corpuscular Hemoglobin Concent 35 g/dL (31-37) Red Cell Distribution Width 14.0 % (11.5-14.5) Platelet Count 230 x10^3/uL (140-400) Neutrophils (%) (Auto) 56 % (31-73) Lymphocytes (%) (Auto) 36 % (24-48) Monocytes (%) (Auto) 7 % (0-9) Eosinophils (%) (Auto) 1 % (0-3) Basophils (%) (Auto) 1 % (0-3) Neutrophils # (Auto) 5.9 x10^3uL (1.8-7.7) Lymphocytes # (Auto) 3.8 x10^3/uL (1.0-4.8) Monocytes # (Auto) 0.7 x10^3/uL (0.0-1.1) Eosinophils # (Auto) 0.1 x10^3/uL (0.0-0.7) Basophils # (Auto) 0.1 x10^3/uL (0.0-0.2) Maternal Serum HCG Beta Subunit < 1 mIU/mL (0-5) Sodium Level 142 mmol/L (136-145) Potassium Level 4.2 mmol/L (3.5-5.1) Chloride Level 104 mmol/L (98-107) Carbon Dioxide Level 21 mmol/L (21-32) Anion Gap 17 (6-14) H Blood Urea Nitrogen 13 mg/dL (7-20) Creatinine 0.6 mg/dL (0.6-1.0) Estimated GFR (Cockcroft-Gault) 121.8 BUN/Creatinine Ratio 22 (6-20) H Glucose Level 139 mg/dL (70-99) H Calcium Level 10.0 mg/dL (8.5-10.1) Total Bilirubin 0.6 mg/dL (0.2-1.0) Aspartate Amino Transferase (AST) 23 U/L (15-37) Alanine Aminotransferase (ALT) 21 U/L (14-59) Alkaline Phosphatase 74 U/L (46-116) Total Protein 8.1 g/dL (6.4-8.2) Albumin 4.3 g/dL (3.4-5.0) Albumin/Globulin Ratio 1.1 (1.0-1.7) Laboratory Tests 10/12/18 07:50 Laboratory Tests 10/12/18 07:50 EKG EKG [] Radiology/Procedures Radiology/Procedures [] Course & Med Decision Making Course & Med Decision Making Pertinent Labs and Imaging studies reviewed. (See chart for details) cyclic vomiting, hx same albs look good pt treated with usual ativan haldol toradol no narcotics, iv fluids. pt is reassured advised marijuana cesation [] Dragon Disclaimer Dragon Disclaimer This electronic medical record was generated, in whole or in part, using a voice recognition dictation system. Departure Departure Impression: Primary Impression: Cyclic vomiting syndrome Disposition: 01 HOME, SELF-CARE Condition: STABLE Referrals: NO PCP (PCP) Patient Instructions: Cyclic Vomiting Syndrome JOEL OCHOA MD Oct 12, 2018 08:44
[2018-10-12] MEDS ORDERED: KETOROLAC 15 MG/ML VIAL. IV ONE (09:30)
[2018-10-12 10:15] VITALS: BP 133/72
== END 2018-10-12 10:23 | disposition home or self-care (01) ==
LOC: ER 07:25
DX: K31.89 Other diseases of stomach and duodenum (principal); R11.2 Nausea with vomiting, unspecified; F41.9 Anxiety disorder, unspecified; Z90.49 Acquired absence of other specified parts of digestive tract; Z91.018 Allergy to other foods
CPT/HCPCS: 36415; 80053; 84702; 85025; 96361; 96372; 96374; 96375; 96376; 99283; J1630; J1885; J2060; J7030

== ENCOUNTER 2018-10-13 14:36 | Emergency (ER) | payer BC ==
[~2018-10-13] VITALS: Ht 162.6 cm; Wt 61.2 kg
[2018-10-13] MEDS ORDERED: HALOPERIDOL LACTATE 5 MG/ML VIAL. IVP ONE (16:45)
--- NOTE | 2018-10-13 16:46 | PHYS DOC ---
Past Medical History Past Medical History: Anxiety, Cyclic Vomiting, Other Additional Past Medical Histor: CYCLIC VOMITING SYNDROME, ANXIETY, PANIC DISORDER Past Surgical History: Cholecystectomy Alcohol Use: None Drug Use: Marijuana Adult General Chief Complaint Chief Complaint: ABDOMINAL PAIN HPI HPI Patient is a 23 year old female who presents with a continuation of her cyclic vomiting. The patient was seen in the emergency department yesterday and was discharged home with negative labs. She is seen very frequently in the emergency department for these symptoms. She states that she woke up still experiencing the abdominal pain and cyclic vomiting. She denies changes in her symptoms. She denies fever. The patient has been counseled numerous times that smoking marijuana will increase her symptoms. The patient continues to smoke marijuana. The patient also has generalized anxiety and panic disorder. Review of Systems Review of Systems Constitutional: Denies fever or chills [] Eyes: Denies change in visual acuity, redness, or eye pain [] HENT: Denies nasal congestion or sore throat [] Respiratory: Denies cough or shortness of breath [] Cardiovascular: No additional information not addressed in HPI [] GI: See history of present illness : Denies dysuria or hematuria [] Musculoskeletal: Denies back pain or joint pain [] Integument: Denies rash or skin lesions [] Neurologic: Denies headache, focal weakness or sensory changes [] Endocrine: Denies polyuria or polydipsia [] All other systems were reviewed and found to be within normal limits, except as documented in this note. Current Medications Current Medications Current Medications Medications (Trade) Dose Ordered Sig/Arnaldo Start Time Stop Time Status Last Admin Dose Admin Haloperidol Lactate (Haldol Inj) 5 mg 1X ONCE 10/13/18 16:45 10/13/18 16:46 DC 10/13/18 17:12 5 MG Lorazepam (Ativan) 1 mg 1X ONCE 10/13/18 16:45 10/13/18 16:46 DC 10/13/18 17:12 1 MG Ringer's Solution 1 ml @ 1,000 mls/hr 1X ONCE 10/13/18 17:00 10/13/18 17:01 DC 10/13/18 17:11 1,000 MLS/HR Allergies Allergies Allergies Coded Allergies Type Severity Reaction Last Updated Verified coconut Allergy Severe Anaphylaxis 01/22/17 Yes Physical Exam Physical Exam Constitutional: Well developed, well nourished, no acute distress, non-toxic appearance. [] Cardiovascular:Heart rate regular rhythm, no murmur [] Lungs & Thorax: Bilateral breath sounds clear to auscultation [] Abdomen: Bowel sounds normal, firm with generalized tenderness, no masses, no pulsatile masses. [] Skin: Warm, dry, no erythema, no rash. [] Back: No tenderness, no CVA tenderness. [] Extremities: No tenderness, no cyanosis, no clubbing, ROM intact, no edema. [] Neurologic: Alert and oriented X 3, normal motor function, normal sensory function, no focal deficits noted. [] Psychologic: Affect normal, judgement normal, mood anxious Current Patient Data Vital Signs Vital Signs Date Time Temp Pulse Resp B/P (MAP) Pulse Ox O2 Delivery O2 Flow Rate FiO2 10/13/18 16:48 97.5 120 32 145/96 (112) 100 Room Air 97.5 EKG EKG [] Radiology/Procedures Radiology/Procedures [] Course & Med Decision Making Course & Med Decision Making Pertinent Labs and Imaging studies reviewed. (See chart for details) []The patient is being given Haldol and Ativan in the emergency department for symptom relief. She is being given a liter of fluids. Staff Physician Addendum: I was working in the ER during the course of this patient's visit. I was available for consultation as needed, but I was not directly involved in the care of this patient. Dragon Disclaimer Dragon Disclaimer This electronic medical record was generated, in whole or in part, using a voice recognition dictation system. Departure Departure Impression: Primary Impression: Cyclic vomiting syndrome Disposition: 01 HOME, SELF-CARE Condition: STABLE Referrals: NO PCP (PCP) Patient Instructions: Cyclic Vomiting Syndrome Additional Instructions: Please follow up with your primary care provider about starting a medication called Zyprexa for your cyclic vomiting syndrome. Increase fluids and rest. You were given a medication in the emergency room called Lactated Ringer's which should help relieved your nausea for several days. If worsening return to the emergency department LATISHA GARCIA APRN Oct 13, 2018 16:46 JOEL OCHOA MD Oct 15, 2018 02:56
[2018-10-13 16:48] VITALS: BP 145/96
[2018-10-13] MEDS ORDERED: RINGERS LACTATED IV ONE (17:00)
== END 2018-10-13 18:16 | disposition home or self-care (01) ==
LOC: ER 14:36
DX: G43.A0 Cyclical vomiting, in migraine, not intractable (principal); R10.84 Generalized abdominal pain; F41.1 Generalized anxiety disorder; F12.10 Cannabis abuse, uncomplicated; Z90.49 Acquired absence of other specified parts of digestive tract; Z91.018 Allergy to other foods
CPT/HCPCS: 96374; 96375; 99283; J1630; J2060; J7120; 96361

== ENCOUNTER 2018-10-15 07:55 | Emergency (ER) | payer BC ==
[~2018-10-15] VITALS: Ht 162.6 cm; Wt 61.2 kg
[2018-10-15] MEDS ORDERED: HALOPERIDOL LACTATE 5 MG/ML VIAL. IM ONE (08:15)
[2018-10-15] MEDS ORDERED: diphenhydrAMINE 50 MG/ML VIAL IM ONE (08:15)
[2018-10-15] MEDS ORDERED: PROCHLORPERAZINE 10 MG/2 ML VIAL. IM ONE (08:15)
--- NOTE | 2018-10-15 08:58 | PHYS DOC ---
Past Medical History Past Medical History: Anxiety, Cyclic Vomiting, Other Additional Past Medical Histor: CYCLIC VOMITING SYNDROME, ANXIETY, PANIC DISORDER Past Surgical History: Cholecystectomy Alcohol Use: None Drug Use: Marijuana Adult General Chief Complaint Chief Complaint: NAUSEA/VOMITING/DIARRHA HPI HPI Patient is a 23 year old female presented ER today for evaluation of nausea vomiting and abdominal pain. Patient had a history of cyclic vomiting syndrome, she had been evaluated numerous times for the same problem. Patient was seen here 2 days ago actually. Patient brought here by EMS. Patient was dried heaving. She also admitted of smoking marijuana home. She denies any fever. She denies suicidal ideation, denies homicidal ideation. Review of Systems Review of Systems Constitutional: Denies fever or chills [] Eyes: Denies change in visual acuity, redness, or eye pain [] HENT: Denies nasal congestion or sore throat [] Respiratory: Denies cough or shortness of breath [] Cardiovascular: No additional information not addressed in HPI [] GI: Positive for abdominal pain, nausea, vomiting, NO bloody stools or diarrhea [] : Denies dysuria or hematuria [] Musculoskeletal: Denies back pain or joint pain [] Integument: Denies rash or skin lesions [] Neurologic: Denies headache, focal weakness or sensory changes [] Endocrine: Denies polyuria or polydipsia [] All other systems were reviewed and found to be within normal limits, except as documented in this note. Current Medications Current Medications Current Medications Medications (Trade) Dose Ordered Sig/Arnaldo Start Time Stop Time Status Last Admin Dose Admin Diphenhydramine HCl (Benadryl) 25 mg 1X ONCE 10/15/18 08:15 10/15/18 08:16 DC 10/15/18 08:21 25 MG Haloperidol Lactate (Haldol Inj) 5 mg 1X ONCE 10/15/18 08:15 10/15/18 08:16 DC 10/15/18 08:20 5 MG Lorazepam (Ativan) 2 mg 1X ONCE 10/15/18 08:15 10/15/18 08:16 DC 10/15/18 08:20 2 MG Prochlorperazine Edisylate (Compazine) 10 mg 1X ONCE 10/15/18 08:15 10/15/18 08:16 DC 10/15/18 08:20 10 MG Allergies Allergies Allergies Coded Allergies Type Severity Reaction Last Updated Verified coconut Allergy Severe Anaphylaxis 01/22/17 Yes Physical Exam Physical Exam Constitutional: Well developed, well nourished, no acute distress, non-toxic appearance. [] HENT: Normocephalic, atraumatic, bilateral external ears normal, oropharynx moist, no oral exudates, nose normal. [] Eyes: PERRLA, EOMI, conjunctiva normal, no discharge. [] Neck: Normal range of motion, no tenderness, supple, no stridor. [] Cardiovascular:Heart rate regular rhythm, no murmur [] Lungs & Thorax: Bilateral breath sounds clear to auscultation [] Abdomen: Bowel sounds normal, soft, no tenderness, no masses, no pulsatile masses. [] Skin: Warm, dry, no erythema, no rash. [] Back: No tenderness, no CVA tenderness. [] Extremities: No tenderness, no cyanosis, no clubbing, ROM intact, no edema. [] Neurologic: Alert and oriented X 3, normal motor function, normal sensory function, no focal deficits noted. [] Psychologic: Affect normal, judgement normal, mood normal. [] Current Patient Data Vital Signs Vital Signs Date Time Temp Pulse Resp B/P (MAP) Pulse Ox O2 Delivery O2 Flow Rate FiO2 10/15/18 09:11 96 20 139/83 (101) 94 Room Air 10/15/18 08:09 97.9 97.9 EKG EKG [] Radiology/Procedures Radiology/Procedures [] Course & Med Decision Making Course & Med Decision Making Pertinent Labs and Imaging studies reviewed. (See chart for details) Patient was given a combination of Haldol, Ativan, Benadryl, Compazine IM in the ER, she felt much better. Patient will be discharged home, she is recommended to follow-up with her GI doctor for further evaluation. Dragon Disclaimer Dragon Disclaimer This electronic medical record was generated, in whole or in part, using a voice recognition dictation system. Departure Departure Impression: Primary Impression: Cyclic vomiting syndrome Disposition: 01 HOME, SELF-CARE Condition: IMPROVED Referrals: NO PCP (PCP) follow up with your GI doctor for further evaluation and treatment. Patient Instructions: Cyclic Vomiting Syndrome Scripts Ondansetron Hcl (ZOFRAN) 8 Mg Tablet 1 TAB PO Q8HRS PRN for NAUSEA, #20 TAB 1 Refill Prov: RAMIREZ,PETER T DO 10/15/18 Promethazine HCl (Phenergan) 25 Mg Supp.rect 25 MG RC TID PRN PRN for NAUSEA, #15 SUPP.RECT Prov: BIENVENIDO RAMIREZ DO 10/15/18 BIENVENIDO RAMIREZ DO Oct 15, 2018 08:58
[2018-10-15] MEDS ORDERED: ONDA8TAB9 PO (09:01)
[2018-10-15] MEDS ORDERED: PROM25SU32 RC (09:01)
[2018-10-15 09:11] VITALS: BP 139/83
== END 2018-10-15 09:11 | disposition home or self-care (01) ==
LOC: ER 07:55
DX: G43.A0 Cyclical vomiting, in migraine, not intractable (principal); R10.9 Unspecified abdominal pain; F41.9 Anxiety disorder, unspecified; Z90.49 Acquired absence of other specified parts of digestive tract; Z91.018 Allergy to other foods
CPT/HCPCS: 96372; 99283; J0780; J1200; J1630; J2060

== ENCOUNTER 2018-10-17 07:06 | Emergency (ER) | payer BC ==
[~2018-10-17] VITALS: Ht 162.6 cm; Wt 61.2 kg
[~2018-10-17 07:06] MED LIST changes: +ONDA8TAB9 PO
[2018-10-17 07:28] VITALS: BP 138/92
[2018-10-17] MEDS ORDERED: diphenhydrAMINE 50 MG/ML VIAL IM ONE (07:30)
[2018-10-17] MEDS ORDERED: PROCHLORPERAZINE 10 MG/2 ML VIAL. IM ONE (07:30)
[2018-10-17] MEDS ORDERED: HALOPERIDOL LACTATE 5 MG/ML VIAL. IM ONE (07:30)
[2018-10-17] MEDS ORDERED: PROM25SU32 RC (08:02)
--- NOTE | 2018-10-17 08:03 | PHYS DOC ---
Past Medical History Past Medical History: Anxiety, Cyclic Vomiting, Other Additional Past Medical Histor: CYCLIC VOMITING SYNDROME, ANXIETY, PANIC DISORDER Past Surgical History: Cholecystectomy Alcohol Use: None Drug Use: Marijuana Adult General Chief Complaint Chief Complaint: NAUSEA/VOMITING/DIARRHA HPI HPI 23-year-old female with known cyclic vomiting syndrome and marijuana use presents again this week with intractable vomiting. She states she does have some abdominal cramping she states this morning epigastric region today. She denies any melena or hematemesis. She states this is very typical of her previous cyclic vomiting episodes. She does not have anything at home to help her symptoms.[] Review of Systems Review of Systems Constitutional: Denies fever or chills [] Eyes: Denies change in visual acuity, redness, or eye pain [] HENT: Denies nasal congestion or sore throat [] Respiratory: Denies cough or shortness of breath [] Cardiovascular: No additional information not addressed in HPI [] GI: Per history of present illness[] : Denies dysuria or hematuria [] Musculoskeletal: Denies back pain or joint pain [] Integument: Denies rash or skin lesions [] Neurologic: Denies headache, focal weakness or sensory changes [] Endocrine: Denies polyuria or polydipsia [] All other systems were reviewed and found to be within normal limits, except as documented in this note. Current Medications Current Medications Current Medications Medications (Trade) Dose Ordered Sig/Arnaldo Start Time Stop Time Status Last Admin Dose Admin Diphenhydramine HCl (Benadryl) 50 mg 1X ONCE 10/17/18 07:30 10/17/18 07:31 DC 10/17/18 07:39 50 MG Haloperidol Lactate (Haldol Inj) 5 mg 1X ONCE 10/17/18 07:30 10/17/18 07:31 DC 10/17/18 07:39 5 MG Lorazepam (Ativan) 2 mg 1X ONCE 10/17/18 07:30 10/17/18 07:31 DC 10/17/18 07:40 2 MG Prochlorperazine Edisylate (Compazine) 10 mg 1X ONCE 10/17/18 07:30 10/17/18 07:31 DC 10/17/18 07:39 10 MG Allergies Allergies Allergies Coded Allergies Type Severity Reaction Last Updated Verified coconut Allergy Severe Anaphylaxis 4/7/17 Yes Physical Exam Physical Exam Constitutional: Well developed, well nourished, moderate distress, appears acutely ill. [] HENT: Normocephalic, atraumatic, bilateral external ears normal, oropharynx moist, no oral exudates, nose normal. [] Eyes: PERRLA, EOMI, conjunctiva normal, no discharge. [] Neck: Normal range of motion, no tenderness, supple, no stridor. [] Cardiovascular:Heart rate regular rhythm, no murmur [] Lungs & Thorax: Bilateral breath sounds clear to auscultation [] Abdomen: Bowel sounds normal, soft, no tenderness, no masses, no pulsatile masses. [] Skin: Warm, dry, no erythema, no rash. [] Back: No tenderness, no CVA tenderness. [] Extremities: No tenderness, no cyanosis, no clubbing, ROM intact, no edema. [] Neurologic: Alert and oriented X 3, normal motor function, normal sensory function, no focal deficits noted. [] Psychologic: Extremely anxious. [] Current Patient Data Vital Signs Vital Signs Date Time Temp Pulse Resp B/P (MAP) Pulse Ox O2 Delivery O2 Flow Rate FiO2 10/17/18 07:28 97.8 102 16 138/92 (107) 97 Room Air 97.8 EKG EKG [] Radiology/Procedures Radiology/Procedures [] Course & Med Decision Making Course & Med Decision Making ED course: Evaluation reveals a 23-year-old female with vomiting. She was given her typical cocktail of Haldol 5 mg IM, Ativan 2 mg IM, Benadryl 50 mg IM and Compazine 10 mg IM. This did help her symptoms. She is stable for discharge home.[] Dragon Disclaimer Dragon Disclaimer This electronic medical record was generated, in whole or in part, using a voice recognition dictation system. Departure Departure Impression: Primary Impression: Cyclical vomiting with nausea Disposition: HOME, SELF-CARE Condition: IMPROVED Referrals: NO PCP (PCP) Patient Instructions: Cyclic Vomiting Syndrome Additional Instructions: Return to emergency department with any new or concerning symptoms Scripts Promethazine HCl (Phenergan) 25 Mg Supp.rect 25 MG RC Q6-8HRS PRN for NAUSEA, #10 SUPP.RECT Prov: WATSON PEREA DO 10/17/18 Problem Qualifiers Primary Impression: Cyclical vomiting with nausea Vomiting Intractability: intractable Qualified Codes: G43.A1 - Cyclical vomiting, intractable WATSON PEREA DO Oct 17, 2018 08:02
== END 2018-10-17 08:10 | disposition home or self-care (01) ==
LOC: ER 07:06
DX: G43.A1 Cyclical vomiting, in migraine, intractable (principal); R11.0 Nausea; F12.10 Cannabis abuse, uncomplicated; Z90.49 Acquired absence of other specified parts of digestive tract; Z91.018 Allergy to other foods
CPT/HCPCS: 96372; 99283; J0780; J1200; J1630; J2060

== ENCOUNTER 2018-10-22 08:09 | Emergency (ER) | payer BC ==
[~2018-10-22] VITALS: Ht 162.6 cm; Wt 61.2 kg
[2018-10-22 08:10] VITALS: BP 145/90
[2018-10-22] MEDS ORDERED: HALOPERIDOL LACTATE 5 MG/ML VIAL. IVP ONE ×2 (08:15→09:45)
[2018-10-22] MEDS ORDERED: IV NORMAL SALINE 1000ML BAG 1,000 ML IV ONE (08:15)
--- NOTE | 2018-10-22 08:33 | PHYS DOC ---
Past Medical History Past Medical History: Anxiety, Cyclic Vomiting, Other Additional Past Medical Histor: CYCLIC VOMITING SYNDROME, ANXIETY, PANIC DISORDER Past Surgical History: Cholecystectomy Alcohol Use: None Drug Use: Marijuana Adult General Chief Complaint Chief Complaint: ABDOMINAL PAIN HPI HPI Patient is a 23 year old female with history of anxiety, cyclic vomiting syndrome chronic marijuana use who presents with acute onset nausea vomiting starting who 4 hours prior to ED arrival. Patient reports diffuse mid lower abdominal pain similar to prior episodes. Ports nausea with vomiting without relief of symptoms. No fever chills, sweats. No S pain palpitations, shortness of breath. Does report increased anxiety state.[] Review of Systems Review of Systems ROS as per HPI. All other systems were reviewed and found to be within normal limits, except as documented in this note. Current Medications Current Medications Current Medications Medications (Trade) Dose Ordered Sig/Arnaldo Start Time Stop Time Status Last Admin Dose Admin Haloperidol Lactate (Haldol Inj) 2.5 mg 1X ONCE 10/22/18 09:45 10/22/18 09:46 DC Sodium Chloride 1,000 ml @ 1,000 mls/hr 1X ONCE 10/22/18 08:15 10/22/18 09:14 DC 10/22/18 08:38 1,000 MLS/HR Allergies Allergies Allergies Coded Allergies Type Severity Reaction Last Updated Verified coconut Allergy Severe Anaphylaxis 01/22/17 Yes Physical Exam Physical Exam Constitutional: Well developed, well nourished, no acute distress, non-toxic appearance. [] HENT: Normocephalic, atraumatic, bilateral external ears normal, oropharynx moist, no oral exudates, nose normal. [] Eyes: PERRL, EOMI. [] Neck: Normal range of motion, no tenderness. [] Cardiovascular:Heart rate regular rhythm, no murmur. [] Lungs & Thorax: Bilateral breath sounds clear to auscultation. [] Abdomen: Bowel sounds normal, soft, mid to lower abdominal pain. [] Skin: Warm, dry, rash. [] Back: No tenderness. [] Extremities: No tenderness. [] Neurologic: Alert and oriented X 3, normal motor function, normal sensory function, no focal deficits noted. [] Psychologic: Affect normal, judgement normal, mood normal. [] Current Patient Data Vital Signs Vital Signs Date Time Temp Pulse Resp B/P (MAP) Pulse Ox O2 Delivery O2 Flow Rate FiO2 1/5/19 08:10 97.4 123 22 145/90 (108) 99 Room Air 97.4 Lab Values Laboratory Tests Test 10/22/18 08:20 White Blood Count 11.8 x10^3/uL (4.0-11.0) H Red Blood Count 4.59 x10^6/uL (3.50-5.40) Hemoglobin 14.2 g/dL (12.0-15.5) Hematocrit 40.1 % (36.0-47.0) Mean Corpuscular Volume 87 fL (79-100) Mean Corpuscular Hemoglobin 31 pg (25-35) Mean Corpuscular Hemoglobin Concent 35 g/dL (31-37) Red Cell Distribution Width 14.0 % (11.5-14.5) Platelet Count 224 x10^3/uL (140-400) Neutrophils (%) (Auto) 69 % (31-73) Lymphocytes (%) (Auto) 24 % (24-48) Monocytes (%) (Auto) 5 % (0-9) Eosinophils (%) (Auto) 1 % (0-3) Basophils (%) (Auto) 1 % (0-3) Neutrophils # (Auto) 8.1 x10^3uL (1.8-7.7) H Lymphocytes # (Auto) 2.8 x10^3/uL (1.0-4.8) Monocytes # (Auto) 0.6 x10^3/uL (0.0-1.1) Eosinophils # (Auto) 0.1 x10^3/uL (0.0-0.7) Basophils # (Auto) 0.1 x10^3/uL (0.0-0.2) Sodium Level 139 mmol/L (136-145) Potassium Level 4.1 mmol/L (3.5-5.1) Chloride Level 103 mmol/L (98-107) Carbon Dioxide Level 24 mmol/L (21-32) Anion Gap 12 (6-14) Blood Urea Nitrogen 7 mg/dL (7-20) Creatinine 0.8 mg/dL (0.6-1.0) Estimated GFR (Cockcroft-Gault) 87.4 BUN/Creatinine Ratio 9 (6-20) Glucose Level 120 mg/dL (70-99) H Calcium Level 9.4 mg/dL (8.5-10.1) Total Bilirubin 0.3 mg/dL (0.2-1.0) Aspartate Amino Transferase (AST) 16 U/L (15-37) Alanine Aminotransferase (ALT) 20 U/L (14-59) Alkaline Phosphatase 68 U/L (46-116) Total Protein 7.8 g/dL (6.4-8.2) Albumin 3.6 g/dL (3.4-5.0) Albumin/Globulin Ratio 0.9 (1.0-1.7) L Lipase 419 U/L (73-393) H Serum Test, Qualitative Negative (NEG) Laboratory Tests 10/22/18 08:20 Laboratory Tests 10/22/18 08:20 EKG EKG [] Radiology/Procedures Radiology/Procedures [] Course & Med Decision Making Course & Med Decision Making Pertinent Labs and Imaging studies reviewed. (See chart for details) [Patient is well-known to this ED and this provider. Presents with recurrent normal, pain/vomiting syndrome. Symptoms improved with treatment. Recommend discontinuing all marijuana use, and PCP and GI follow-up.] Dragon Disclaimer Dragon Disclaimer This electronic medical record was generated, in whole or in part, using a voice recognition dictation system. Departure Departure Impression: Primary Impression: Abdominal pain Additional Impression: Nausea & vomiting Disposition: 01 HOME, SELF-CARE Condition: GOOD Referrals: NO PCP (PCP) Patient Instructions: Abdominal Pain (Nonspecific), Nausea and Vomiting, Easy- to-Read Additional Instructions: Please continue home nausea medication discontinue all marijuana use and follow- up with local primary care physician for GI referral. Clear liquids only the next 6-12 hours, then gradually increase to bland diet as tolerated Scripts Ondansetron Hcl (ZOFRAN) 4 Mg Tablet 1 TAB PO Q6HRS, #10 TAB 0 Refills Prov: JENNA DEVRIES DO 10/22/18 Problem Qualifiers JENNA DEVRIES DO Oct 22, 2018 08:33
[2018-10-22 08:49] LABS: BASO # 0.1 x10^3/uL (0.0-0.2); BASO % 1 % (0-3); EOS # 0.1 x10^3/uL (0.0-0.7); EOS % 1 % (0-3); HEMATOCRIT 40.1 % (36.0-47.0); HEMOGLOBIN 14.2 g/dL (12.0-15.5); LYMPH # 2.8 x10^3/uL (1.0-4.8); LYMPH % 24 % (24-48); MEAN CORPUSCULAR HEMOGLOBIN 31 pg (25-35); MEAN CORPUSCULAR HGB CONC 35 g/dL (31-37); MEAN CORPUSCULAR VOLUME 87 fL (79-100); MONO # 0.6 x10^3/uL (0.0-1.1); MONO % 5 % (0-9); NEUT # 8.1 x10^3uL (1.8-7.7); NEUT % 69 % (31-73); PLATELET COUNT 224 x10^3/uL (140-400); RED BLOOD COUNT 4.59 x10^6/uL (3.50-5.40); WHITE BLOOD COUNT 11.8 x10^3/uL (4.0-11.0)
[2018-10-22 08:54] LABS: CALCIUM 9.4 mg/dL (8.5-10.1); CREATININE 0.8 mg/dL (0.6-1.0); GFR 87.4; POTASSIUM 4.1 mmol/L (3.5-5.1)
[2018-10-22 08:59] LABS: PREG TEST PT QUAL NEGATIVE (NEG)
[2018-10-22 09:01] LABS: ALBUMIN 3.6 g/dL (3.4-5.0); ALBUMIN/GLOBULIN RATIO 0.9 (1.0-1.7); TOTAL BILIRUBIN 0.3 mg/dL (0.2-1.0); TOTAL PROTEIN 7.8 g/dL (6.4-8.2)
[2018-10-22] MEDS ORDERED: ONDA4TAB7 PO (09:58)
== END 2018-10-22 11:20 | disposition home or self-care (01) ==
LOC: ER 08:09
DX: R11.2 Nausea with vomiting, unspecified (principal); R10.31 Right lower quadrant pain; R10.32 Left lower quadrant pain; F41.9 Anxiety disorder, unspecified; F12.20 Cannabis dependence, uncomplicated; Z90.49 Acquired absence of other specified parts of digestive tract; Z91.018 Allergy to other foods
CPT/HCPCS: 36415; 80053; 83690; 84703; 85025; 96361; 96374; 96376; 99283; J1630; J7030

== ENCOUNTER 2018-11-16 05:08 | Emergency (ER) | payer BC ==
[~2018-11-16] VITALS: Ht 162.6 cm; Wt 61.2 kg
--- NOTE | 2018-11-16 05:25 | PHYS DOC ---
Past Medical History Past Medical History: Anxiety, Cyclic Vomiting, Other Additional Past Medical Histor: CYCLIC VOMITING SYNDROME, ANXIETY, PANIC DISORDER Past Surgical History: Cholecystectomy Alcohol Use: None Drug Use: Marijuana Adult General Chief Complaint Chief Complaint: NAUSEA/VOMITING/DIARRHA HPI HPI Patient is a 23-year-old female who presents via EMS with report of acute exacerbation of nausea and vomiting that started yesterday morning at 3 AM. Patient has history of hyperemesis syndrome. Patient states that her last use of cannabis was a few days ago. Patient states that she is feeling very anxious. Review of Systems Review of Systems Constitutional: Denies fever or chills [] Respiratory: Denies cough or shortness of breath [] Cardiovascular: No additional information not addressed in HPI [] GI: Complains of abdominal cramping with nausea and vomiting. Denies diarrhea [] Integument: Denies rash or skin lesions [] Neurologic: Denies headache, focal weakness or sensory changes [] All other systems were reviewed and found to be within normal limits, except as documented in this note. Current Medications Current Medications Current Medications Medications (Trade) Dose Ordered Sig/Arnaldo Start Time Stop Time Status Last Admin Dose Admin Diphenhydramine HCl (Benadryl) 25 mg 1X ONCE 11/16/18 05:30 11/16/18 05:31 DC Haloperidol Lactate (Haldol Inj) 5 mg 1X ONCE 11/16/18 05:30 11/16/18 05:31 DC Lorazepam (Ativan) 0.5 mg 1X ONCE 11/16/18 05:30 11/16/18 05:31 DC Metoclopramide HCl (Reglan Vial) 10 mg 1X ONCE 11/16/18 05:30 11/16/18 05:31 DC Sodium Chloride 1,000 ml @ 1,000 mls/hr Q1H 11/16/18 05:30 11/16/18 06:29 Allergies Allergies Allergies Coded Allergies Type Severity Reaction Last Updated Verified coconut Allergy Severe Anaphylaxis 01/22/17 Yes Physical Exam Physical Exam Constitutional: Well developed, well nourished, no acute distress, non-toxic appearance. [] HENT: Normocephalic, atraumatic, bilateral external ears normal, oropharynx dry , no oral exudates, nose normal. [] Eyes: PERRLA, EOMI, conjunctiva normal, no discharge. [] Neck: Normal range of motion, no tenderness, supple, no stridor. [] Cardiovascular: Regular rate and rhythm [] Lungs & Thorax: Bilateral breath sounds clear to auscultation [] Abdomen: Bowel sounds normal, soft, with epigastric tenderness. [] Skin: Warm, dry, no erythema, no rash. [] Extremities: No tenderness, no cyanosis, no clubbing, ROM intact, no edema. [] Neurologic: Alert and oriented X 3, no focal deficits noted. [] Current Patient Data Vital Signs Vital Signs Date Time Temp Pulse Resp B/P (MAP) Pulse Ox O2 Delivery O2 Flow Rate FiO2 11/16/18 05:13 96.8 106 20 149/100 (116) 99 Room Air 96.8 Lab Values Laboratory Tests Test 11/16/18 05:10 11/16/18 05:28 Urine Collection Type Unknown Urine Color Yellow Urine Clarity Clear Urine pH 7.0 Urine Specific [place] 1.015 Urine Protein 100 mg/dL (NEG-TRACE) Urine Glucose (UA) Negative mg/dL (NEG) Urine Ketones (Stick) Trace mg/dL (NEG) Urine Blood Negative (NEG) Urine Nitrite Negative (NEG) Urine Bilirubin Negative (NEG) Urine Urobilinogen Dipstick 0.2 mg/dL (0.2 mg/dL) Urine Leukocyte Esterase Trace (NEG) Urine RBC 0 /HPF (0-2) Urine WBC 5-10 /HPF (0-4) Urine Squamous Epithelial Cells Many /LPF Urine Bacteria Moderate /HPF (0-FEW) Urine Mucus Mod /LPF POC Urine HCG, Qualitative Hcg negative (Negative) EKG EKG [] Radiology/Procedures Radiology/Procedures [] Course & Med Decision Making Course & Med Decision Making Pertinent Labs and Imaging studies reviewed. (See chart for details) Patient moved to room upon arrival was evaluated by your medical staff after which an IV was established and blood work drawn. At this time patient's workup is pending and patient is being signed out to oncoming ER physician, Dr. An, at 6:00 AM. Dragon Disclaimer Dragon Disclaimer This electronic medical record was generated, in whole or in part, using a voice recognition dictation system. Departure Departure Referrals: NO PCP (PCP) CAROLIN AYERS Jr. DO Nov 16, 2018 05:25
[2018-11-16] MEDS ORDERED: diphenhydrAMINE 50 MG/ML VIAL IVP ONE (05:30)
[2018-11-16] MEDS ORDERED: IV NORMAL SALINE 1000ML BAG 1,000 ML IV SCH (05:30)
[2018-11-16] MEDS ORDERED: HALOPERIDOL LACTATE 5 MG/ML VIAL. IVP ONE (05:30)
[2018-11-16] MEDS ORDERED: METOCLOPRAMIDE HCL 10 MG/2 ML VIAL. IV ONE (05:30)
[2018-11-16 05:37] LABS: BILIRUBIN,URINE NEGATIVE (NEG); CLARITY,URINE CLEAR; COLOR,URINE YELLOW; NITRITE,URINE NEGATIVE (NEG); PROTEIN,URINE 100 mg/dL (NEG-TRACE); UROBILINOGEN,URINE 0.2 mg/dL (0.2 mg/dL)
[2018-11-16 05:43] LABS: BACTERIA,URINE MODERATE /HPF (0-FEW); RBC,URINE 0 /HPF (0-2); SQUAMOUS EPITHELIAL CELL,UR MANY /LPF
[2018-11-16 06:09] LABS: BASO # 0.1 x10^3/uL (0.0-0.2); BASO % 1 % (0-3); EOS % 0 % (0-3); HEMATOCRIT 44.5 % (36.0-47.0); HEMOGLOBIN 14.9 g/dL (12.0-15.5); LYMPH # 2.4 x10^3/uL (1.0-4.8); LYMPH % 16 % (24-48); MEAN CORPUSCULAR HEMOGLOBIN 29 pg (25-35); MEAN CORPUSCULAR HGB CONC 34 g/dL (31-37); MEAN CORPUSCULAR VOLUME 86 fL (79-100); MONO # 0.9 x10^3/uL (0.0-1.1); MONO % 6 % (0-9); NEUT # 11.4 x10^3uL (1.8-7.7); NEUT % 77 % (31-73); PLATELET COUNT 255 x10^3/uL (140-400); RED BLOOD COUNT 5.15 x10^6/uL (3.50-5.40); RED CELL DISTRIBUTION WIDTH 13.8 % (11.5-14.5); WHITE BLOOD COUNT 14.7 x10^3/uL (4.0-11.0)
[2018-11-16 06:22] LABS: CALCIUM 10.4 mg/dL (8.5-10.1); CREATININE 0.8 mg/dL (0.6-1.0); GFR 87.4; POTASSIUM 3.3 mmol/L (3.5-5.1)
[2018-11-16 06:36] LABS: ALBUMIN 4.1 g/dL (3.4-5.0); TOTAL BILIRUBIN 0.7 mg/dL (0.2-1.0); TOTAL PROTEIN 8.4 g/dL (6.4-8.2)
[2018-11-16 06:44] LABS: AMPHETAMINE/METHAMPHETAMINE NEG (NEG); BARBITURATES NEG (NEG); BENZODIAZEPINES NEG (NEG); CANNABINOIDS POS (NEG); COCAINE NEG (NEG); METHADONE NEG (NEG); OPIATES NEG (NEG); PHENCYCLIDINE NEG (NEG)
[2018-11-16] MEDS ORDERED: PROC10TA57 PO (07:06)
[2018-11-16 07:15] VITALS: BP 112/81
--- NOTE | 2018-11-30 11:06 | NUR ---
Late entry made to Medical Record. IV Stop time transcribed from eMAR to IV spreadsheet
== END 2018-11-16 07:17 | disposition home or self-care (01) ==
LOC: ER 05:08
DX: R11.2 Nausea with vomiting, unspecified (principal); R10.13 Epigastric pain; F41.9 Anxiety disorder, unspecified; Z90.49 Acquired absence of other specified parts of digestive tract; Z91.018 Allergy to other foods
CPT/HCPCS: 36415; 80053; 80307; 81001; 81025; 83690; 85025; 87086; 96361; 96374; 96375; 99283; J1200; J1630; J2060; J2765; J7030

== ENCOUNTER 2018-11-27 13:36 | Inpatient (IN) | payer BC ==
[~2018-11-27] VITALS: Ht 162.6 cm; Wt 75.4 kg
[2018-11-27] MEDS ORDERED: FAMOTIDINE 20 MG/2 ML VIAL IVP ONE ×2 (14:15→14:30)
[2018-11-27] MEDS ORDERED: METOCLOPRAMIDE HCL 10 MG/2 ML VIAL. IV ONE (14:30)
[2018-11-27] MEDS ORDERED: HALOPERIDOL LACTATE 5 MG/ML VIAL. IVP ONE (14:30)
[2018-11-27] MEDS ORDERED: diphenhydrAMINE 50 MG/ML VIAL IVP ONE (14:30)
[2018-11-27] MEDS ORDERED: IV NORMAL SALINE 1000ML BAG 1,000 ML IV SCH (14:30)
[2018-11-27 14:31] LABS: BASO # 0.1 x10^3/uL (0.0-0.2); BASO % 1 % (0-3); EOS % 0 % (0-3); HEMATOCRIT 44.5 % (36.0-47.0); HEMOGLOBIN 14.9 g/dL (12.0-15.5); LYMPH # 1.7 x10^3/uL (1.0-4.8); LYMPH % 15 % (24-48); MEAN CORPUSCULAR HEMOGLOBIN 29 pg (25-35); MEAN CORPUSCULAR HGB CONC 34 g/dL (31-37); MEAN CORPUSCULAR VOLUME 88 fL (79-100); MONO # 0.6 x10^3/uL (0.0-1.1); MONO % 5 % (0-9); NEUT # 8.8 x10^3uL (1.8-7.7); NEUT % 79 % (31-73); PLATELET COUNT 223 x10^3/uL (140-400); RED BLOOD COUNT 5.06 x10^6/uL (3.50-5.40); RED CELL DISTRIBUTION WIDTH 14.5 % (11.5-14.5); WHITE BLOOD COUNT 11.1 x10^3/uL (4.0-11.0)
[2018-11-27 14:36] LABS: CALCIUM 9.9 mg/dL (8.5-10.1); CREATININE 0.8 mg/dL (0.6-1.0); GFR 87.4
[2018-11-27 14:42] LABS: AMPHETAMINE/METHAMPHETAMINE NEG (NEG); BARBITURATES NEG (NEG); BENZODIAZEPINES NEG (NEG); CANNABINOIDS POS (NEG); COCAINE NEG (NEG); METHADONE NEG (NEG); OPIATES NEG (NEG); PHENCYCLIDINE NEG (NEG)
[2018-11-27 14:42] LABS: ALBUMIN 4.3 g/dL (3.4-5.0); TOTAL BILIRUBIN 0.4 mg/dL (0.2-1.0); TOTAL PROTEIN 8.4 g/dL (6.4-8.2)
[2018-11-27] MEDS ORDERED: ONDANSETRON PF 4 MG/2 ML VIAL. IV ONE ×2 (15:30→16:45)
[2018-11-27 15:49] LABS: BILIRUBIN,URINE NEGATIVE (NEG); CLARITY,URINE TURBID; COLOR,URINE YELLOW; NITRITE,URINE NEGATIVE (NEG); PH,URINE 5.5; PROTEIN,URINE NEGATIVE (NEG-TRACE); UROBILINOGEN,URINE 0.2 mg/dL (0.2 mg/dL)
[2018-11-27 15:55] LABS: BACTERIA,URINE FEW /HPF (0-FEW); RBC,URINE 0 /HPF (0-2); SQUAMOUS EPITHELIAL CELL,UR MANY /LPF
--- NOTE | 2018-11-27 16:10 | PHYS DOC ---
Past Medical History Past Medical History: Anxiety, Cyclic Vomiting, Other Additional Past Medical Histor: CYCLIC VOMITING SYNDROME, ANXIETY, PANIC DISORDER Past Surgical History: Cholecystectomy Alcohol Use: None Drug Use: Marijuana Social History Narrative: SMOKED MARIJUANA YESTERDAY 11/26/18 Adult General Chief Complaint Chief Complaint: NAUSEA/VOMITING/DIARRHA HPI HPI This is a 23-year-old female well known to this emergency room with history of cannabis hyperemesis syndrome who presents with nausea, vomiting and epigastric discomfort that started about 10:00 last night. Patient states that her last use of marijuana was yesterday. She rates her pain in her abdomen to be an 8 out of 10. She states that she has not been to keep anything down. She describes pain as being cramping in nature. She denies any chest pain, shortness of breath or fever. Patient states that she has not been able to keep anything down since the vomiting started. Review of Systems Review of Systems Constitutional: Denies fever or chills [] Respiratory: Denies cough or shortness of breath [] Cardiovascular: No additional information not addressed in HPI [] GI: Complains of abdominal cramping with nausea and vomiting. Denies diarrhea [] Integument: Denies rash or skin lesions [] All other systems were reviewed and found to be within normal limits, except as documented in this note. Current Medications Current Medications Current Medications Medications (Trade) Dose Ordered Sig/Arnaldo Start Time Stop Time Status Last Admin Dose Admin Diphenhydramine HCl (Benadryl) 25 mg 1X ONCE 11/27/18 14:30 11/27/18 14:31 DC 11/27/18 14:26 25 MG Famotidine (Pepcid Vial) 20 mg 1X ONCE 11/27/18 14:15 11/27/18 14:16 UNV Haloperidol Lactate (Haldol Inj) 5 mg 1X ONCE 11/27/18 14:30 11/27/18 14:31 DC 11/27/18 14:26 5 MG Lorazepam (Ativan) 1 mg 1X ONCE 11/27/18 16:45 11/27/18 16:46 DC 11/27/18 17:01 1 MG Metoclopramide HCl (Reglan Vial) 5 mg 1X ONCE 11/27/18 14:30 11/27/18 14:31 DC 11/27/18 14:27 5 MG Ondansetron HCl (Zofran) 4 mg 1X ONCE 11/27/18 16:45 11/27/18 16:46 DC 11/27/18 17:01 4 MG Sodium Chloride 1,000 ml @ 1,000 mls/hr 1X ONCE 11/27/18 16:45 11/27/18 17:44 DC 11/27/18 17:01 1,000 MLS/HR Allergies Allergies Allergies Coded Allergies Type Severity Reaction Last Updated Verified coconut Allergy Severe Anaphylaxis 01/22/17 Yes Physical Exam Physical Exam Constitutional: Well developed, well nourished, no acute distress. [] HENT: Normocephalic, atraumatic, bilateral external ears normal, oropharynx moist, no oral exudates, nose normal. [] Eyes: PERRLA, EOMI, conjunctiva normal, no discharge. [] Neck: Normal range of motion, no tenderness, supple. [] Cardiovascular: Tachycardic rate with regular rhythm [] Lungs & Thorax: Bilateral breath sounds clear to auscultation [] Abdomen: Bowel sounds normal, soft, with epigastric tenderness. [] Skin: Warm, dry, no erythema, no rash. [] Extremities: No tenderness, no cyanosis, no clubbing, ROM intact, no edema. [] Neurologic: Alert and oriented X 3, normal motor function, normal sensory function, no focal deficits noted. [] Current Patient Data Vital Signs Vital Signs Date Time Temp Pulse Resp B/P (MAP) Pulse Ox O2 Delivery O2 Flow Rate FiO2 11/27/18 13:46 97.4 100 18 149/95 (113) 99 Room Air 97.4 Lab Values Laboratory Tests Test 11/27/18 13:40 11/27/18 13:45 11/27/18 14:00 11/27/18 15:38 Urine Opiates Screen Neg (NEG) Urine Methadone Screen Neg (NEG) Urine Barbiturates Neg (NEG) Urine Phencyclidine Screen Neg (NEG) Urine Amphetamine/Methamphetamine Neg (NEG) Urine Benzodiazepines Screen Neg (NEG) Urine Cocaine Screen Neg (NEG) Urine Cannabinoids Screen Pos (NEG) Urine Ethyl Alcohol Neg (NEG) POC Urine HCG, Qualitative Hcg negative (Negative) White Blood Count 11.1 x10^3/uL (4.0-11.0) H Red Blood Count 5.06 x10^6/uL (3.50-5.40) Hemoglobin 14.9 g/dL (12.0-15.5) Hematocrit 44.5 % (36.0-47.0) Mean Corpuscular Volume 88 fL (79-100) Mean Corpuscular Hemoglobin 29 pg (25-35) Mean Corpuscular Hemoglobin Concent 34 g/dL (31-37) Red Cell Distribution Width 14.5 % (11.5-14.5) Platelet Count 223 x10^3/uL (140-400) Neutrophils (%) (Auto) 79 % (31-73) H Lymphocytes (%) (Auto) 15 % (24-48) L Monocytes (%) (Auto) 5 % (0-9) Eosinophils (%) (Auto) 0 % (0-3) Basophils (%) (Auto) 1 % (0-3) Neutrophils # (Auto) 8.8 x10^3uL (1.8-7.7) H Lymphocytes # (Auto) 1.7 x10^3/uL (1.0-4.8) Monocytes # (Auto) 0.6 x10^3/uL (0.0-1.1) Eosinophils # (Auto) 0.0 x10^3/uL (0.0-0.7) Basophils # (Auto) 0.1 x10^3/uL (0.0-0.2) Sodium Level 141 mmol/L (136-145) Potassium Level 4.0 mmol/L (3.5-5.1) Chloride Level 102 mmol/L (98-107) Carbon Dioxide Level 20 mmol/L (21-32) L Anion Gap 19 (6-14) H Blood Urea Nitrogen 14 mg/dL (7-20) Creatinine 0.8 mg/dL (0.6-1.0) Estimated GFR (Cockcroft-Gault) 87.4 BUN/Creatinine Ratio 18 (6-20) Glucose Level 165 mg/dL (70-99) H Calcium Level 9.9 mg/dL (8.5-10.1) Total Bilirubin 0.4 mg/dL (0.2-1.0) Aspartate Amino Transferase (AST) 20 U/L (15-37) Alanine Aminotransferase (ALT) 20 U/L (14-59) Alkaline Phosphatase 75 U/L (46-116) Total Protein 8.4 g/dL (6.4-8.2) H Albumin 4.3 g/dL (3.4-5.0) Albumin/Globulin Ratio 1.0 (1.0-1.7) Lipase 170 U/L (73-393) Urine Collection Type Unknown Urine Color Yellow Urine Clarity Turbid Urine pH 5.5 Urine Specific [place] >=1.030 Urine Protein Negative mg/dL (NEG-TRACE) Urine Glucose (UA) Negative mg/dL (NEG) Urine Ketones (Stick) Negative mg/dL (NEG) Urine Blood Negative (NEG) Urine Nitrite Negative (NEG) Urine Bilirubin Negative (NEG) Urine Urobilinogen Dipstick 0.2 mg/dL (0.2 mg/dL) Urine Leukocyte Esterase Negative (NEG) Urine RBC 0 /HPF (0-2) Urine WBC 5-10 /HPF (0-4) Urine Squamous Epithelial Cells Many /LPF Urine Bacteria Few /HPF (0-FEW) Urine Mucus Mod /LPF Laboratory Tests 11/27/18 14:00 Laboratory Tests 11/27/18 14:00 EKG EKG [] Radiology/Procedures Radiology/Procedures [] Course & Med Decision Making Course & Med Decision Making Pertinent Labs and Imaging studies reviewed. (See chart for details) [] Dragon Disclaimer Dragon Disclaimer This electronic medical record was generated, in whole or in part, using a voice recognition dictation system. Departure Departure Impression: Primary Impression: Cyclical vomiting with nausea Additional Impressions: Tachycardia Anxiety Disposition: ADMITTED INPATIENT Admitting Physician: Other Condition: IMPROVED (Dr. Cosme) Referrals: NO PCP (PCP) Problem Qualifiers Primary Impression: Cyclical vomiting with nausea Vomiting Intractability: intractable Qualified Codes: G43.A1 - Cyclical vomiting, intractable CAROLIN AYERS Jr. DO Nov 27, 2018 16:09
[2018-11-27] MEDS ORDERED: IV NORMAL SALINE 1000ML BAG 1,000 ML IV ONE (16:45)
[2018-11-27] MEDS ORDERED: ONDANSETRON PF 4 MG/2 ML VIAL. IV PRN (18:00)
[2018-11-27 19:00] VITALS: BP 141/72
[2018-11-27] MEDS: IV NORMAL SALINE 1000ML BAG 1,000 ML IV SCH (20:19)
--- NOTE | 2018-11-27 22:22 | PDOC1 ---
History and Physical Date of Admission Date of Admission DATE: 11/27/18 TIME: 22:08 Identification/Chief Complaint Chief Complaint Intractable nausea and vomiting Source Source: Patient History of Present Illness History of Present Illness 23-year-old female well known to this emergency room with history of cannabis hyperemesis syndrome who presents with nausea, vomiting and epigastric discomfort that started about 10:00 last night. Patient states that her last use of marijuana was yesterday. She rates her pain in her abdomen to be an 8 out of 10. She states that she has not been to keep anything down. She describes pain as being cramping in nature. She denies any chest pain, shortness of breath or fever. Patient states that she has not been able to keep anything down since the vomiting started. Seen multiple admission for the same, diagnosed as cyclic vomiting syndrome/ marijuana hyperemesis syndrome. Previously she quickly improved over a few days , though she seems to be insistent about pain and anxiety medications from nursing staff and is frequently seen ambulating the halls She had her last GETA 2016 which was normal. She had another today which was normal. She is nondiabetic, has hyperglycemia, however She supposed to take Elavil 50 nightly daily at home, she only takes 25 mg are the only prescription she was given I agree with Elavil, as cyclic vomiting first with normal workup in the past with usually benefit with an antidepressant Normal gastric imaging scan. Will need GI f/u and marijuana cessation as the only things that helped her were cessation and very hot showers, this seems like a classic presentation. Past Medical History Cardiovascular: No pertinent hx Pulmonary: No pertinent hx GI: Other Heme/Onc: No pertinent hx Psych: Anxiety, Addictions, Panic Rheumatologic: No pertinent hx Endocrine: No pertinent hx, Other Past Surgical History Past Surgical History: Cholecystectomy Family History Family History: Diabetes, Heart Disease, Other Family History: Grandparents Social History Smoke: No ALCOHOL: social Drugs: Marijuana Current Problem List Problem List Problems Medical Problems: (1) Anxiety Status: Acute Current Medications Current Medications Current Medications Sodium Chloride 1,000 ml @ 1,000 mls/hr Q1H IV Last administered on 11/27/18at 14:27; Start 11/27/18 at 14:30; Stop 11/27/18 at 15:29; Status DC Famotidine (Pepcid Vial) 20 mg 1X ONCE IVP Last administered on 11/27/18 14: 27; Start 11/27/18 at 14:30; Stop 11/27/18 at 14:31; Status DC Metoclopramide HCl (Reglan Vial) 5 mg 1X ONCE IV Last administered on 14:27; Start 11/27/18 at 14:30; Stop 11/27/18 at 14:31; Status DC Haloperidol Lactate (Haldol Inj) 5 mg 1X ONCE IVP Last administered on 14:26; Start 11/27/18 at 14:30; Stop 11/27/18 at 14:31; Status DC Diphenhydramine HCl (Benadryl) 25 mg 1X ONCE IVP Last administered on 14:26; Start 11/27/18 at 14:30; Stop 11/27/18 at 14:31; Status DC Famotidine (Pepcid Vial) 20 mg 1X ONCE IVP ; Start 11/27/18 at 14:15; Stop 08/05 at 14:16; Status UNV Lorazepam (Ativan) 1 mg 1X ONCE IV Last administered on 11/27/18 15:12; Start 11/27/18 at 15:30; Stop 11/27/18 at 15:31; Status DC Ondansetron HCl (Zofran) 4 mg 1X ONCE IV Last administered on 11/27/18 15:13 ; Start 11/27/18 at 15:30; Stop 11/27/18 at 15:31; Status DC Sodium Chloride 1,000 ml @ 1,000 mls/hr 1X ONCE IV Last administered on 17:01; Start 11/27/18 at 16:45; Stop 11/27/18 at 17:44; Status DC Ondansetron HCl (Zofran) 4 mg 1X ONCE IV Last administered on 11/27/18 17:01 ; Start 11/27/18 at 16:45; Stop 11/27/18 at 16:46; Status DC Lorazepam (Ativan) 1 mg 1X ONCE IV Last administered on 11/27/18 17:01; Start 11/27/18 at 16:45; Stop 11/27/18 at 16:46; Status DC Ondansetron HCl (Zofran) 4 mg PRN Q8HRS PRN IV NAUSEA/VOMITING; Start 11/27/18 at 18:00; Stop 11/28/18 at 17:59 Sodium Chloride 1,000 ml @ 125 mls/hr Q8H IV Last administered on 11/27/18at 20 :19; Start 11/27/18 at 17:59; Stop 11/28/18 at 17:58 Active Scripts Active Compazine (Prochlorperazine Maleate) 10 Mg Tablet 10 Mg PO Q8HRS Zofran (Ondansetron Hcl) 4 Mg Tablet 1 Tab PO Q6HRS Zofran (Ondansetron Hcl) 4 Mg Tablet 1 Tab PO Q6HRS Phenergan (Promethazine HCl) 25 Mg Supp.rect 25 Mg RC Q6-8HRS PRN Zofran (Ondansetron Hcl) 8 Mg Tablet 1 Tab PO Q8HRS PRN Phenergan (Promethazine HCl) 25 Mg Supp.rect 25 Mg RC TID PRN PRN Colace (Docusate Sodium) 100 Mg Capsule 100 Mg PO PRN DAILY PRN 14 Days Reported Amitriptyline Hcl 25 Mg Tablet 1 Tab PO QHS Allergies Allergies: Coded Allergies: coconut (Verified Allergy, Severe, Anaphylaxis, 01/22/17) rash, hives, throat sweeling ROS General: YES: Fatigue, Malaise, Appetite PSYCHOLOGICAL ROS: YES: Anxiety, Behavioral Disorder; No: Concentration difficultie, Decreased libido, Depression, Disorientation, Hallucinations, Hostility, Irritablity, Memory difficulties, Mood Swings, Obsessive thoughts, Physical abuse, Sexual abuse, Sleep disturbances, Suicidal ideation, Other Eyes: Yes Dry eyes; No Blurry vision, No Decreased vision, No Double vision, No Excessive tearing , No Eye Pain, No Itchy Eyes, No Loss of vision, No Photophobia, No Scotomata, No Uses contacts, No Uses glasses, No Other HEENT: No: Heacaches, Visual Changes, Hearing change, Nasal congestion, Nasal discharge, Oral lesions, Sinus pain, Sore Throat, Epistaxis, Sneezing, Snoring, Tinnitus, Vertigo, Vocal changes, Other ALLERGY AND IMMUNOLOGY: YES: Itchy/Watery Eyes; No: Hives, Insect Bite Sensitivity, Nasal Congestion, Post Nasal Drip, Seasonal Allergies, Other Hematological and Lymphatic: No: Bleeding Problems, Blood Clots, Blood Transfusions, Brusing, Night Sweats, Pallor, Swollen Lymph Nodes, Other ENDOCRINE: No: Breast Changes, Galactorrhea, Hair Pattern Changes, Hot Flashes , Malaise/lethargy, Mood Swings, Palpitations, Polydipsia/polyuria, Skin Changes , Temperature Intolerance, Unexpected Weight Changes, Other Breast: No New/Changing Breast Lumps, No Nipple changes, No Nipple discharge, No Other Respiratory: No: Cough, Hemoptysis, Orthopnea, Pleuritic Pain, Shortness of breath, SOB with excertion, Sputum Changes, Stridor, Tachypnea, Wheezing, Other Cardiovascular: yes Palpitations; No Chest Pain, No Orthopnea, No Paroxysmal Noc. Dyspnea, No Edema, No Lt Headedness, No Other Gastrointestinal: Yes Nausea, Yes Vomiting; No Abdominal Pain, No Diarrhea, No Constipation, No Melena, No Hematochezia, No Other Genitourinary: No Dysuria, No Frequency, No Incontinence, No Hematuria, No Retention, No Discharge, No Urgency, No Pain, No Flank Pain, No Other, No , No , No , No , No , No , No Musculoskeletal: No Gait Disturbance, No Joint Pain, No Joint Stiffness, No Joint Swelling, No Muscle Pain, No Muscular Weakness, No Pain In:, No Swelling In:, No Other Neurological: No Behavorial Changes, No Bowel/Bladder ControlChng, No Confusion , No Dizziness, No Gait Disturbance, No Headaches, No Impaired Coord/balance, No Memory Loss, No Numbness/Tingling, No Seizures, No Speech Problems, No Tremors, No Visual Changes, No Weakness, No Other Skin: No Dry Skin, No Eczema, No Hair Changes, No Lumps, No Mole Changes, No Mottling, No Nail Changes, No Pruritus, No Rash, No Skin Lesion Changes, No Other, No Acne Physical Exam General: mild distress, Other (Drowsy) HEENT: Atraumatic, PERRLA, EOMI, Mucous membr. moist/pink Lungs: Clear to auscultation, Normal air movement Heart: other (Tachy) Abdomen: Normal bowel sounds, Soft, No tenderness, No hepatosplenomegaly, No masses Extremities: No clubbing, No cyanosis, No edema, Normal pulses, No tenderness/ swelling Skin: No rashes, No breakdown, No significant lesion Neuro: Normal speech, Strength at 5/5 X4 ext, Normal tone, Sensation intact, Cranial nerves 3-12 NL, Reflexes 2+ Psych/Mental Status: Other (Drowsy) Vitals Vitals Vital Signs Date Time Temp Pulse Resp B/P (MAP) Pulse Ox O2 Delivery O2 Flow Rate FiO2 11/27/18 19:00 98.6 121 20 141/72 (95) 96 Room Air 98.6 Labs Labs Laboratory Tests Test 11/27/18 13:40 11/27/18 13:45 11/27/18 14:00 11/27/18 15:38 Urine Opiates Screen Neg (NEG) Urine Methadone Screen Neg (NEG) Urine Barbiturates Neg (NEG) Urine Phencyclidine Screen Neg (NEG) Urine Amphetamine/Methamphetamine Neg (NEG) Urine Benzodiazepines Screen Neg (NEG) Urine Cocaine Screen Neg (NEG) Urine Cannabinoids Screen Pos (NEG) Urine Ethyl Alcohol Neg (NEG) Bedside Urine HCG, Qualitative Hcg negative (Negative) White Blood Count 11.1 x10^3/uL (4.0-11.0) Red Blood Count 5.06 x10^6/uL (3.50-5.40) Hemoglobin 14.9 g/dL (12.0-15.5) Hematocrit 44.5 % (36.0-47.0) Mean Corpuscular Volume 88 fL (79-100) Mean Corpuscular Hemoglobin 29 pg (25-35) Mean Corpuscular Hemoglobin Concent 34 g/dL (31-37) Red Cell Distribution Width 14.5 % (11.5-14.5) Platelet Count 223 x10^3/uL (140-400) Neutrophils (%) (Auto) 79 % (31-73) Lymphocytes (%) (Auto) 15 % (24-48) Monocytes (%) (Auto) 5 % (0-9) Eosinophils (%) (Auto) 0 % (0-3) Basophils (%) (Auto) 1 % (0-3) Neutrophils # (Auto) 8.8 x10^3uL (1.8-7.7) Lymphocytes # (Auto) 1.7 x10^3/uL (1.0-4.8) Monocytes # (Auto) 0.6 x10^3/uL (0.0-1.1) Eosinophils # (Auto) 0.0 x10^3/uL (0.0-0.7) Basophils # (Auto) 0.1 x10^3/uL (0.0-0.2) Sodium Level 141 mmol/L (136-145) Potassium Level 4.0 mmol/L (3.5-5.1) Chloride Level 102 mmol/L (98-107) Carbon Dioxide Level 20 mmol/L (21-32) Anion Gap 19 (6-14) Blood Urea Nitrogen 14 mg/dL (7-20) Creatinine 0.8 mg/dL (0.6-1.0) Estimated GFR (Cockcroft-Gault) 87.4 BUN/Creatinine Ratio 18 (6-20) Glucose Level 165 mg/dL (70-99) Calcium Level 9.9 mg/dL (8.5-10.1) Total Bilirubin 0.4 mg/dL (0.2-1.0) Aspartate Amino Transf (AST/SGOT) 20 U/L (15-37) Alanine Aminotransferase (ALT/SGPT) 20 U/L (14-59) Alkaline Phosphatase 75 U/L (46-116) Total Protein 8.4 g/dL (6.4-8.2) Albumin 4.3 g/dL (3.4-5.0) Albumin/Globulin Ratio 1.0 (1.0-1.7) Lipase 170 U/L (73-393) Urine Collection Type Unknown Urine Color Yellow Urine Clarity Turbid Urine pH 5.5 Urine Specific Mar Lin >=1.030 Urine Protein Negative mg/dL (NEG-TRACE) Urine Glucose (UA) Negative mg/dL (NEG) Urine Ketones (Stick) Negative mg/dL (NEG) Urine Blood Negative (NEG) Urine Nitrite Negative (NEG) Urine Bilirubin Negative (NEG) Urine Urobilinogen Dipstick 0.2 mg/dL (0.2 mg/dL) Urine Leukocyte Esterase Negative (NEG) Urine RBC 0 /HPF (0-2) Urine WBC 5-10 /HPF (0-4) Urine Squamous Epithelial Cells Many /LPF Urine Bacteria Few /HPF (0-FEW) Urine Mucus Mod /LPF Laboratory Tests Test 11/27/18 13:40 11/27/18 13:45 11/27/18 14:00 11/27/18 15:38 Urine Opiates Screen Neg (NEG) Urine Methadone Screen Neg (NEG) Urine Barbiturates Neg (NEG) Urine Phencyclidine Screen Neg (NEG) Urine Amphetamine/Methamphetamine Neg (NEG) Urine Benzodiazepines Screen Neg (NEG) Urine Cocaine Screen Neg (NEG) Urine Cannabinoids Screen Pos (NEG) Urine Ethyl Alcohol Neg (NEG) Bedside Urine HCG, Qualitative Hcg negative (Negative) White Blood Count 11.1 x10^3/uL (4.0-11.0) Red Blood Count 5.06 x10^6/uL (3.50-5.40) Hemoglobin 14.9 g/dL (12.0-15.5) Hematocrit 44.5 % (36.0-47.0) Mean Corpuscular Volume 88 fL (79-100) Mean Corpuscular Hemoglobin 29 pg (25-35) Mean Corpuscular Hemoglobin Concent 34 g/dL (31-37) Red Cell Distribution Width 14.5 % (11.5-14.5) Platelet Count 223 x10^3/uL (140-400) Neutrophils (%) (Auto) 79 % (31-73) Lymphocytes (%) (Auto) 15 % (24-48) Monocytes (%) (Auto) 5 % (0-9) Eosinophils (%) (Auto) 0 % (0-3) Basophils (%) (Auto) 1 % (0-3) Neutrophils # (Auto) 8.8 x10^3uL (1.8-7.7) Lymphocytes # (Auto) 1.7 x10^3/uL (1.0-4.8) Monocytes # (Auto) 0.6 x10^3/uL (0.0-1.1) Eosinophils # (Auto) 0.0 x10^3/uL (0.0-0.7) Basophils # (Auto) 0.1 x10^3/uL (0.0-0.2) Sodium Level 141 mmol/L (136-145) Potassium Level 4.0 mmol/L (3.5-5.1) Chloride Level 102 mmol/L (98-107) Carbon Dioxide Level 20 mmol/L (21-32) Anion Gap 19 (6-14) Blood Urea Nitrogen 14 mg/dL (7-20) Creatinine 0.8 mg/dL (0.6-1.0) Estimated GFR (Cockcroft-Gault) 87.4 BUN/Creatinine Ratio 18 (6-20) Glucose Level 165 mg/dL (70-99) Calcium Level 9.9 mg/dL (8.5-10.1) Total Bilirubin 0.4 mg/dL (0.2-1.0) Aspartate Amino Transf (AST/SGOT) 20 U/L (15-37) Alanine Aminotransferase (ALT/SGPT) 20 U/L (14-59) Alkaline Phosphatase 75 U/L (46-116) Total Protein 8.4 g/dL (6.4-8.2) Albumin 4.3 g/dL (3.4-5.0) Albumin/Globulin Ratio 1.0 (1.0-1.7) Lipase 170 U/L (73-393) Urine Collection Type Unknown Urine Color Yellow Urine Clarity Turbid Urine pH 5.5 Urine Specific Mar Lin >=1.030 Urine Protein Negative mg/dL (NEG-TRACE) Urine Glucose (UA) Negative mg/dL (NEG) Urine Ketones (Stick) Negative mg/dL (NEG) Urine Blood Negative (NEG) Urine Nitrite Negative (NEG) Urine Bilirubin Negative (NEG) Urine Urobilinogen Dipstick 0.2 mg/dL (0.2 mg/dL) Urine Leukocyte Esterase Negative (NEG) Urine RBC 0 /HPF (0-2) Urine WBC 5-10 /HPF (0-4) Urine Squamous Epithelial Cells Many /LPF Urine Bacteria Few /HPF (0-FEW) Urine Mucus Mod /LPF VTE Prophylaxis Ordered VTE Prophylaxis Devices: No VTE Pharmacological Prophylaxi: Yes Assessment/Plan Assessment/Plan A/P: Intractable nausea and vomiting - this seem to be classic marijuana hyperemesis syndrome. She is convinced marijuana is the only treatment. I have assured her that it is possible just CBD may help, but this is a well documented disorder. Will cont elavil. Consult GI Marijuana abuse - counseled on stopping when she experiences this syndrome Anxiety - will give lorazepam PO and IV if vomiting Tachycardia - very rapid, but likely sinus tachy, will hydrate overnight and clonidine prn FEN - General diet PPX - SCDs FULL CODE Inpatient for at least 2 midnights likely to resolve her hyperemesis YAN NORMAN MD Nov 27, 2018 22:22
[2018-11-27] MEDS ORDERED: ACETAMINOPHEN 325 MG TABLET. PO PRN (22:30)
[2018-11-27] MEDS ORDERED: LORazepam 1 MG TABLET PO PRN (22:30)
[2018-11-27] MEDS ORDERED: cloNIDine HCL 0.1 MG TABLET PO PRN (22:30)
[2018-11-27] MEDS ORDERED: MAGNESIUM HYDROXIDE 2,400 MG/30 ML ORAL.SUSP. PO PRN (22:30)
[2018-11-27] MEDS ORDERED: MAG HYDROX/ALUMINUM HYD/SIMETH 30 ML ORAL.SUSP PO PRN (22:30)
[2018-11-27 23:10] VITALS: BP 133/79
[2018-11-27] MEDS: ONDANSETRON PF 4 MG/2 ML VIAL. IV PRN (23:21)
[2018-11-28] VITALS (7 sets, daily range): BP systolic 86–128; BP diastolic 45–89
[2018-11-28] MEDS: KETOROLAC 15 MG/ML VIAL. IV PRN ×4 (00:27→21:29)
[2018-11-28] MEDS: PROCHLORPERAZINE 10 MG/2 ML VIAL. IV PRN ×3 (02:43→21:11)
[2018-11-28] MEDS: IV NORMAL SALINE 1000ML BAG 1,000 ML IV SCH ×2 (03:57→12:06)
[2018-11-28 06:04] LABS: BASO # 0.1 x10^3/uL (0.0-0.2); BASO % 1 % (0-3); EOS % 1 % (0-3); HEMATOCRIT 36.3 % (36.0-47.0); HEMOGLOBIN 12.2 g/dL (12.0-15.5); LYMPH # 2.3 x10^3/uL (1.0-4.8); LYMPH % 23 % (24-48); MEAN CORPUSCULAR HEMOGLOBIN 30 pg (25-35); MEAN CORPUSCULAR HGB CONC 34 g/dL (31-37); MEAN CORPUSCULAR VOLUME 89 fL (79-100); MONO # 0.7 x10^3/uL (0.0-1.1); MONO % 7 % (0-9); NEUT # 6.8 x10^3uL (1.8-7.7); NEUT % 69 % (31-73); PLATELET COUNT 171 x10^3/uL (140-400); RED BLOOD COUNT 4.09 x10^6/uL (3.50-5.40); RED CELL DISTRIBUTION WIDTH 14.2 % (11.5-14.5); WHITE BLOOD COUNT 9.9 x10^3/uL (4.0-11.0)
[2018-11-28 06:33] LABS: CALCIUM 8.4 mg/dL (8.5-10.1); CREATININE 0.5 mg/dL (0.6-1.0); GFR 150.3; POTASSIUM 3.1 mmol/L (3.5-5.1)
[2018-11-28] MEDS: ONDANSETRON PF 4 MG/2 ML VIAL. IV PRN ×2 (08:25→16:52)
[2018-11-28] MEDS ORDERED: HYDROmorphone 2 MG/ML VIAL IV ONE (09:00)
[2018-11-28] MEDS: POTASSIUM CHLORIDE 20 MEQ TABLET.ER. PO SCH ×3 (10:17→14:23)
--- NOTE | 2018-11-28 10:44 | PDOC2 ---
GI CONSULT Reason For Consult: Hyperemesis HPI: HPI: 23 y/o female who we have seen numerous times for recurrent n/v and abd pain. Admitted again through ER overnight. Tells me ill for 2 days, no precipitating events. Seems less nausea and more pain this time, also having some diarrhea. Not taking meds at home, apparently uninsured again because her switched jobs. Past GI workup: She says amitriptyline has helped in the past, non-compliant at home. Attempted treated w/ PPI, non-compliant at home. EGD w/ Dr. Nieto at some point, records unavailable. S/p cholecystectomy. Normal GES in 09/2016 and 08/2018. DAJA and Cortisol neg/normal in 07/2017, DAJA neg again in 08/2018. C1 esterase inhibitor normal 07/2018. Porphyria screen completed 07/2018. UGI/SBS in 01/2018 w/ mild GERD, no hiatal hernia, normal stomach and duodenum, no obstruction. Last CT A/P 06/2018: s/p cholecystectomy w/o evidence for intrahepatic or extrahepatic biliary ductal dilatation, no evidence for bowel obstruction or inflammation. Head CT 07/2018: no evidence of acute intracranial abnormality. Always + marijuana - milder symptoms improved at home w/ hot showers ( suggestive of cannabinoid syndrome/cannabis hyperemesis). Have asked surgery to see in the past for J tube/partial gastrectomy - not a candidate. PMH: PMH: CVS, asthma, substance abuse, anxiety/depression, IUD, cholecystectomy FH: Family History: No pertinent hx (denies GI cancers, IBD, Leo's, lupus) Social History: Smoke: No ALCOHOL: social Drugs: Marijuana ROS: GEN: Denies fevers, chills, sweats HEENT: Denies blurred vision, sore throat CV: Denies chest pain RESP: Denies shortness of air, cough GI: Per HPI : Denies hematuria, dysuria ENDO: Denies weight changes NEURO: Denies confusion, dizziness MSK: Denies weakness, joint pain/swelling SKIN: Denies jaundice, pruritus Vitals: Vitals: Vital Signs Date Time Temp Pulse Resp B/P (MAP) Pulse Ox O2 Delivery O2 Flow Rate FiO2 11/28/18 09:12 20 96 Room Air 11/28/18 07:00 98.3 86 104/63 (77) 98.3 Labs: Labs: Laboratory Tests Test 11/27/18 13:40 11/27/18 13:45 11/27/18 14:00 11/27/18 15:38 Urine Opiates Screen Neg (NEG) Urine Methadone Screen Neg (NEG) Urine Barbiturates Neg (NEG) Urine Phencyclidine Screen Neg (NEG) Urine Amphetamine/Methamphetamine Neg (NEG) Urine Benzodiazepines Screen Neg (NEG) Urine Cocaine Screen Neg (NEG) Urine Cannabinoids Screen Pos (NEG) Urine Ethyl Alcohol Neg (NEG) Bedside Urine HCG, Qualitative Hcg negative (Negative) White Blood Count 11.1 x10^3/uL (4.0-11.0) Red Blood Count 5.06 x10^6/uL (3.50-5.40) Hemoglobin 14.9 g/dL (12.0-15.5) Hematocrit 44.5 % (36.0-47.0) Mean Corpuscular Volume 88 fL (79-100) Mean Corpuscular Hemoglobin 29 pg (25-35) Mean Corpuscular Hemoglobin Concent 34 g/dL (31-37) Red Cell Distribution Width 14.5 % (11.5-14.5) Platelet Count 223 x10^3/uL (140-400) Neutrophils (%) (Auto) 79 % (31-73) Lymphocytes (%) (Auto) 15 % (24-48) Monocytes (%) (Auto) 5 % (0-9) Eosinophils (%) (Auto) 0 % (0-3) Basophils (%) (Auto) 1 % (0-3) Neutrophils # (Auto) 8.8 x10^3uL (1.8-7.7) Lymphocytes # (Auto) 1.7 x10^3/uL (1.0-4.8) Monocytes # (Auto) 0.6 x10^3/uL (0.0-1.1) Eosinophils # (Auto) 0.0 x10^3/uL (0.0-0.7) Basophils # (Auto) 0.1 x10^3/uL (0.0-0.2) Sodium Level 141 mmol/L (136-145) Potassium Level 4.0 mmol/L (3.5-5.1) Chloride Level 102 mmol/L (98-107) Carbon Dioxide Level 20 mmol/L (21-32) Anion Gap 19 (6-14) Blood Urea Nitrogen 14 mg/dL (7-20) Creatinine 0.8 mg/dL (0.6-1.0) Estimated GFR (Cockcroft-Gault) 87.4 BUN/Creatinine Ratio 18 (6-20) Glucose Level 165 mg/dL (70-99) Calcium Level 9.9 mg/dL (8.5-10.1) Total Bilirubin 0.4 mg/dL (0.2-1.0) Aspartate Amino Transf (AST/SGOT) 20 U/L (15-37) Alanine Aminotransferase (ALT/SGPT) 20 U/L (14-59) Alkaline Phosphatase 75 U/L (46-116) Total Protein 8.4 g/dL (6.4-8.2) Albumin 4.3 g/dL (3.4-5.0) Albumin/Globulin Ratio 1.0 (1.0-1.7) Lipase 170 U/L (73-393) Urine Collection Type Unknown Urine Color Yellow Urine Clarity Turbid Urine pH 5.5 Urine Specific Wallace >=1.030 Urine Protein Negative mg/dL (NEG-TRACE) Urine Glucose (UA) Negative mg/dL (NEG) Urine Ketones (Stick) Negative mg/dL (NEG) Urine Blood Negative (NEG) Urine Nitrite Negative (NEG) Urine Bilirubin Negative (NEG) Urine Urobilinogen Dipstick 0.2 mg/dL (0.2 mg/dL) Urine Leukocyte Esterase Negative (NEG) Urine RBC 0 /HPF (0-2) Urine WBC 5-10 /HPF (0-4) Urine Squamous Epithelial Cells Many /LPF Urine Bacteria Few /HPF (0-FEW) Urine Mucus Mod /LPF Test 11/28/18 05:42 White Blood Count 9.9 x10^3/uL (4.0-11.0) Red Blood Count 4.09 x10^6/uL (3.50-5.40) Hemoglobin 12.2 g/dL (12.0-15.5) Hematocrit 36.3 % (36.0-47.0) Mean Corpuscular Volume 89 fL (79-100) Mean Corpuscular Hemoglobin 30 pg (25-35) Mean Corpuscular Hemoglobin Concent 34 g/dL (31-37) Red Cell Distribution Width 14.2 % (11.5-14.5) Platelet Count 171 x10^3/uL (140-400) Neutrophils (%) (Auto) 69 % (31-73) Lymphocytes (%) (Auto) 23 % (24-48) Monocytes (%) (Auto) 7 % (0-9) Eosinophils (%) (Auto) 1 % (0-3) Basophils (%) (Auto) 1 % (0-3) Neutrophils # (Auto) 6.8 x10^3uL (1.8-7.7) Lymphocytes # (Auto) 2.3 x10^3/uL (1.0-4.8) Monocytes # (Auto) 0.7 x10^3/uL (0.0-1.1) Eosinophils # (Auto) 0.0 x10^3/uL (0.0-0.7) Basophils # (Auto) 0.1 x10^3/uL (0.0-0.2) Sodium Level 141 mmol/L (136-145) Potassium Level 3.1 mmol/L (3.5-5.1) Chloride Level 107 mmol/L (98-107) Carbon Dioxide Level 23 mmol/L (21-32) Anion Gap 11 (6-14) Blood Urea Nitrogen 3 mg/dL (7-20) Creatinine 0.5 mg/dL (0.6-1.0) Estimated GFR (Cockcroft-Gault) 150.3 Glucose Level 92 mg/dL (70-99) Calcium Level 8.4 mg/dL (8.5-10.1) Allergies: Coded Allergies: coconut (Verified Allergy, Severe, Anaphylaxis, 01/22/17) rash, hives, throat sweeling Medications: Current Medications Medications (Trade) Dose Ordered Sig/Arnaldo Route PRN Reason Start Time Stop Time Status Last Admin Dose Admin Sodium Chloride 1,000 ml @ 1,000 mls/hr Q1H IV 11/27/18 14:30 11/27/18 15:29 DC 11/27/18 14:27 Famotidine (Pepcid Vial) 20 mg 1X ONCE IVP 11/27/18 14:30 11/27/18 14:31 DC 11/27/18 14:27 Metoclopramide HCl (Reglan Vial) 5 mg 1X ONCE IV 11/27/18 14:30 11/27/18 14:31 DC 11/27/18 14:27 Haloperidol Lactate (Haldol Inj) 5 mg 1X ONCE IVP 11/27/18 14:30 11/27/18 14:31 DC 11/27/18 14:26 Diphenhydramine HCl (Benadryl) 25 mg 1X ONCE IVP 11/27/18 14:30 11/27/18 14:31 DC 11/27/18 14:26 Lorazepam (Ativan) 1 mg 1X ONCE IV 11/27/18 15:30 11/27/18 15:31 DC 11/27/18 15:12 Ondansetron HCl (Zofran) 4 mg 1X ONCE IV 11/27/18 15:30 11/27/18 15:31 DC 11/27/18 15:13 Sodium Chloride 1,000 ml @ 1,000 mls/hr 1X ONCE IV 11/27/18 16:45 11/27/18 17:44 DC 11/27/18 17:01 Ondansetron HCl (Zofran) 4 mg 1X ONCE IV 11/27/18 16:45 11/27/18 16:46 DC 11/27/18 17:01 Lorazepam (Ativan) 1 mg 1X ONCE IV 11/27/18 16:45 11/27/18 16:46 DC 11/27/18 17:01 Sodium Chloride 1,000 ml @ 125 mls/hr Q8H IV 11/27/18 17:59 11/28/18 17:58 11/28/18 03:57 Ondansetron HCl (Zofran) 4 mg PRN Q6HRS PRN IV NAUSEA/VOMITING 11/27/18 22:30 11/28/18 08:25 Prochlorperazine Edisylate (Compazine) 10 mg PRN Q6HRS PRN IV NAUSEA/VOMITING 11/27/18 22:30 11/28/18 02:43 Ketorolac Tromethamine (Toradol 15mg Vial) 15 mg PRN Q6HRS PRN IV PAIN 11/27/18 22:30 12/02/18 22:29 11/28/18 08:26 Lorazepam (Ativan) 1 mg PRN Q3HRS PRN IV For CIWA 8-14 11/27/18 22:30 11/28/18 08:53 DC 11/28/18 08:37 Clonidine HCl (Catapres) 0.1 mg PRN Q1HR PRN PO HR > 110 or DBP > 100, MRX3 11/27/18 22:30 11/27/18 23:34 Hydromorphone HCl (Dilaudid) 1 mg 1X ONCE IV 11/28/18 09:00 11/28/18 09:01 DC 11/28/18 09:12 Potassium Chloride (Klor-Con) 40 meq Q2H PO 11/28/18 10:00 11/28/18 14:01 11/28/18 10:17 Imaging: Imaging: - PE: GEN: writhing around in bed HEENT: Atraumatic, PERRL LUNGS: room air HEART: exam limited due to pt discomfort ABD: exam limited, BS+, diffusely tender EXTREMITY: No edema SKIN: No rashes, no jaundice NEURO/PSYCH: A & O �3 A/P: A/P: Recurrent abd pain w/ n/v - suspected cannabinoid syndrome ?diarrhea +marijuana -- Recurrent symptoms, frequent admissions, extensive workup as above. Difficult w /o insurance and non-compliance. No abd imaging this time - will check KUB. Medical therapy - will restart PPI (IV for now and can change to PO as able). Defer Elavil to primary. Monitor for diarrhea - check stool studies if indicated. She's not interested in stopping marijuana as a trial. LIBBY CAO Nov 28, 2018 10:44
[2018-11-28] MEDS ORDERED: PANTOPRAZOLE IV PUSH 40 MG VIAL. IVP SCH (11:30)
--- NOTE | 2018-11-28 12:03 | RAD ---
Portable abdomen, 11/28/2018: HISTORY: Abdominal pain Gas is present in large and small bowel in a nonspecific pattern. An IUD is projected over the mid pelvis. Surgical clips in the right upper quadrant suggest a previous cholecystectomy. There is no evidence of organomegaly. Lower pelvic calcifications are probably phleboliths. IMPRESSION: No acute abdominal abnormality is detected. Electronically signed by: Jayme Alexander MD (11/28/2018 11:58 AM) [facility]
[2018-11-28] MEDS: PANTOPRAZOLE 40 MG TABLET.DR. PO SCH (12:30)
--- NOTE | 2018-11-28 12:36 | NUR ---
PO Protonix held as IV dose was just given
[2018-11-28] MEDS: tiZANidine 4 MG TABLET. PO PRN ×2 (12:57→21:29)
--- NOTE | 2018-11-28 14:06 | PDOC ---
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 She is convinced marijuana is the only treatment. I have assured her that it is possible just CBD may help, but this is a well documented disorder. Will cont elavil. Consult GI Marijuana abuse - counseled on stopping when she experiences this syndrome Anxiety - lorazepam PO and IV if vomiting Tachycardia - very rapid, but likely sinus tachy, will hydrate overnight and clonidine prn Epigastric pain secondary to reflux and retchign effort, PPI and muscle relaxant ordered FEN - General diet PPX - SCDs FULL CODE reassess in the am if symptoms better controlled and tolerating diet may be discharged Vitals Vitals Vital Signs Date Time Temp Pulse Resp B/P (MAP) Pulse Ox O2 Delivery O2 Flow Rate FiO2 11/28/18 11:00 97.6 80 18 98/60 (73) 97 Room Air 97.6 Physical Exam General: mild distress, Other (Drowsy) Lungs: Clear, Other Abdomen: Normal bowel sounds, Soft, No tenderness, No hepatosplenomegaly, No masses Extremities: No clubbing, No cyanosis, No edema, Normal pulses, No tenderness/ swelling Skin: No rashes, No breakdown, No significant lesion Labs LABS Laboratory Tests Test 11/27/18 15:38 11/28/18 05:42 Urine Collection Type Unknown Urine Color Yellow Urine Clarity Turbid Urine pH 5.5 Urine Specific [place] >=1.030 Urine Protein Negative mg/dL (NEG-TRACE) Urine Glucose (UA) Negative mg/dL (NEG) Urine Ketones (Stick) Negative mg/dL (NEG) Urine Blood Negative (NEG) Urine Nitrite Negative (NEG) Urine Bilirubin Negative (NEG) Urine Urobilinogen Dipstick 0.2 mg/dL (0.2 mg/dL) Urine Leukocyte Esterase Negative (NEG) Urine RBC 0 /HPF (0-2) Urine WBC 5-10 /HPF (0-4) Urine Squamous Epithelial Cells Many /LPF Urine Bacteria Few /HPF (0-FEW) Urine Mucus Mod /LPF White Blood Count 9.9 x10^3/uL (4.0-11.0) Red Blood Count 4.09 x10^6/uL (3.50-5.40) Hemoglobin 12.2 g/dL (12.0-15.5) Hematocrit 36.3 % (36.0-47.0) Mean Corpuscular Volume 89 fL (79-100) Mean Corpuscular Hemoglobin 30 pg (25-35) Mean Corpuscular Hemoglobin Concent 34 g/dL (31-37) Red Cell Distribution Width 14.2 % (11.5-14.5) Platelet Count 171 x10^3/uL (140-400) Neutrophils (%) (Auto) 69 % (31-73) Lymphocytes (%) (Auto) 23 % (24-48) Monocytes (%) (Auto) 7 % (0-9) Eosinophils (%) (Auto) 1 % (0-3) Basophils (%) (Auto) 1 % (0-3) Neutrophils # (Auto) 6.8 x10^3uL (1.8-7.7) Lymphocytes # (Auto) 2.3 x10^3/uL (1.0-4.8) Monocytes # (Auto) 0.7 x10^3/uL (0.0-1.1) Eosinophils # (Auto) 0.0 x10^3/uL (0.0-0.7) Basophils # (Auto) 0.1 x10^3/uL (0.0-0.2) Sodium Level 141 mmol/L (136-145) Potassium Level 3.1 mmol/L (3.5-5.1) Chloride Level 107 mmol/L (98-107) Carbon Dioxide Level 23 mmol/L (21-32) Anion Gap 11 (6-14) Blood Urea Nitrogen 3 mg/dL (7-20) Creatinine 0.5 mg/dL (0.6-1.0) Estimated GFR (Cockcroft-Gault) 150.3 Glucose Level 92 mg/dL (70-99) Calcium Level 8.4 mg/dL (8.5-10.1) Assessment and Plan Assessmemt and Plan Problems Medical Problems: (1) Anxiety Status: Acute Comment Review of Relevant I have reviewed the following items migeul (where applicable) has been applied. Labs Laboratory Tests Test 11/27/18 13:40 11/27/18 13:45 11/27/18 14:00 11/27/18 15:38 Urine Opiates Screen Neg (NEG) Urine Methadone Screen Neg (NEG) Urine Barbiturates Neg (NEG) Urine Phencyclidine Screen Neg (NEG) Urine Amphetamine/Methamphetamine Neg (NEG) Urine Benzodiazepines Screen Neg (NEG) Urine Cocaine Screen Neg (NEG) Urine Cannabinoids Screen Pos (NEG) Urine Ethyl Alcohol Neg (NEG) Bedside Urine HCG, Qualitative Hcg negative (Negative) White Blood Count 11.1 x10^3/uL (4.0-11.0) Red Blood Count 5.06 x10^6/uL (3.50-5.40) Hemoglobin 14.9 g/dL (12.0-15.5) Hematocrit 44.5 % (36.0-47.0) Mean Corpuscular Volume 88 fL (79-100) Mean Corpuscular Hemoglobin 29 pg (25-35) Mean Corpuscular Hemoglobin Concent 34 g/dL (31-37) Red Cell Distribution Width 14.5 % (11.5-14.5) Platelet Count 223 x10^3/uL (140-400) Neutrophils (%) (Auto) 79 % (31-73) Lymphocytes (%) (Auto) 15 % (24-48) Monocytes (%) (Auto) 5 % (0-9) Eosinophils (%) (Auto) 0 % (0-3) Basophils (%) (Auto) 1 % (0-3) Neutrophils # (Auto) 8.8 x10^3uL (1.8-7.7) Lymphocytes # (Auto) 1.7 x10^3/uL (1.0-4.8) Monocytes # (Auto) 0.6 x10^3/uL (0.0-1.1) Eosinophils # (Auto) 0.0 x10^3/uL (0.0-0.7) Basophils # (Auto) 0.1 x10^3/uL (0.0-0.2) Sodium Level 141 mmol/L (136-145) Potassium Level 4.0 mmol/L (3.5-5.1) Chloride Level 102 mmol/L (98-107) Carbon Dioxide Level 20 mmol/L (21-32) Anion Gap 19 (6-14) Blood Urea Nitrogen 14 mg/dL (7-20) Creatinine 0.8 mg/dL (0.6-1.0) Estimated GFR (Cockcroft-Gault) 87.4 BUN/Creatinine Ratio 18 (6-20) Glucose Level 165 mg/dL (70-99) Calcium Level 9.9 mg/dL (8.5-10.1) Total Bilirubin 0.4 mg/dL (0.2-1.0) Aspartate Amino Transf (AST/SGOT) 20 U/L (15-37) Alanine Aminotransferase (ALT/SGPT) 20 U/L (14-59) Alkaline Phosphatase 75 U/L (46-116) Total Protein 8.4 g/dL (6.4-8.2) Albumin 4.3 g/dL (3.4-5.0) Albumin/Globulin Ratio 1.0 (1.0-1.7) Lipase 170 U/L (73-393) Urine Collection Type Unknown Urine Color Yellow Urine Clarity Turbid Urine pH 5.5 Urine Specific [place] >=1.030 Urine Protein Negative mg/dL (NEG-TRACE) Urine Glucose (UA) Negative mg/dL (NEG) Urine Ketones (Stick) Negative mg/dL (NEG) Urine Blood Negative (NEG) Urine Nitrite Negative (NEG) Urine Bilirubin Negative (NEG) Urine Urobilinogen Dipstick 0.2 mg/dL (0.2 mg/dL) Urine Leukocyte Esterase Negative (NEG) Urine RBC 0 /HPF (0-2) Urine WBC 5-10 /HPF (0-4) Urine Squamous Epithelial Cells Many /LPF Urine Bacteria Few /HPF (0-FEW) Urine Mucus Mod /LPF Test 11/28/18 05:42 White Blood Count 9.9 x10^3/uL (4.0-11.0) Red Blood Count 4.09 x10^6/uL (3.50-5.40) Hemoglobin 12.2 g/dL (12.0-15.5) Hematocrit 36.3 % (36.0-47.0) Mean Corpuscular Volume 89 fL (79-100) Mean Corpuscular Hemoglobin 30 pg (25-35) Mean Corpuscular Hemoglobin Concent 34 g/dL (31-37) Red Cell Distribution Width 14.2 % (11.5-14.5) Platelet Count 171 x10^3/uL (140-400) Neutrophils (%) (Auto) 69 % (31-73) Lymphocytes (%) (Auto) 23 % (24-48) Monocytes (%) (Auto) 7 % (0-9) Eosinophils (%) (Auto) 1 % (0-3) Basophils (%) (Auto) 1 % (0-3) Neutrophils # (Auto) 6.8 x10^3uL (1.8-7.7) Lymphocytes # (Auto) 2.3 x10^3/uL (1.0-4.8) Monocytes # (Auto) 0.7 x10^3/uL (0.0-1.1) Eosinophils # (Auto) 0.0 x10^3/uL (0.0-0.7) Basophils # (Auto) 0.1 x10^3/uL (0.0-0.2) Sodium Level 141 mmol/L (136-145) Potassium Level 3.1 mmol/L (3.5-5.1) Chloride Level 107 mmol/L (98-107) Carbon Dioxide Level 23 mmol/L (21-32) Anion Gap 11 (6-14) Blood Urea Nitrogen 3 mg/dL (7-20) Creatinine 0.5 mg/dL (0.6-1.0) Estimated GFR (Cockcroft-Gault) 150.3 Glucose Level 92 mg/dL (70-99) Calcium Level 8.4 mg/dL (8.5-10.1) Laboratory Tests Test 11/27/18 15:38 11/28/18 05:42 Urine Collection Type Unknown Urine Color Yellow Urine Clarity Turbid Urine pH 5.5 Urine Specific [place] >=1.030 Urine Protein Negative mg/dL (NEG-TRACE) Urine Glucose (UA) Negative mg/dL (NEG) Urine Ketones (Stick) Negative mg/dL (NEG) Urine Blood Negative (NEG) Urine Nitrite Negative (NEG) Urine Bilirubin Negative (NEG) Urine Urobilinogen Dipstick 0.2 mg/dL (0.2 mg/dL) Urine Leukocyte Esterase Negative (NEG) Urine RBC 0 /HPF (0-2) Urine WBC 5-10 /HPF (0-4) Urine Squamous Epithelial Cells Many /LPF Urine Bacteria Few /HPF (0-FEW) Urine Mucus Mod /LPF White Blood Count 9.9 x10^3/uL (4.0-11.0) Red Blood Count 4.09 x10^6/uL (3.50-5.40) Hemoglobin 12.2 g/dL (12.0-15.5) Hematocrit 36.3 % (36.0-47.0) Mean Corpuscular Volume 89 fL (79-100) Mean Corpuscular Hemoglobin 30 pg (25-35) Mean Corpuscular Hemoglobin Concent 34 g/dL (31-37) Red Cell Distribution Width 14.2 % (11.5-14.5) Platelet Count 171 x10^3/uL (140-400) Neutrophils (%) (Auto) 69 % (31-73) Lymphocytes (%) (Auto) 23 % (24-48) Monocytes (%) (Auto) 7 % (0-9) Eosinophils (%) (Auto) 1 % (0-3) Basophils (%) (Auto) 1 % (0-3) Neutrophils # (Auto) 6.8 x10^3uL (1.8-7.7) Lymphocytes # (Auto) 2.3 x10^3/uL (1.0-4.8) Monocytes # (Auto) 0.7 x10^3/uL (0.0-1.1) Eosinophils # (Auto) 0.0 x10^3/uL (0.0-0.7) Basophils # (Auto) 0.1 x10^3/uL (0.0-0.2) Sodium Level 141 mmol/L (136-145) Potassium Level 3.1 mmol/L (3.5-5.1) Chloride Level 107 mmol/L (98-107) Carbon Dioxide Level 23 mmol/L (21-32) Anion Gap 11 (6-14) Blood Urea Nitrogen 3 mg/dL (7-20) Creatinine 0.5 mg/dL (0.6-1.0) Estimated GFR (Cockcroft-Gault) 150.3 Glucose Level 92 mg/dL (70-99) Calcium Level 8.4 mg/dL (8.5-10.1) Medications Current Medications Sodium Chloride 1,000 ml @ 1,000 mls/hr Q1H IV Last administered on 11/27/18at 14:27; Start 11/27/18 at 14:30; Stop 11/27/18 at 15:29; Status DC Famotidine (Pepcid Vial) 20 mg 1X ONCE IVP Last administered on 11/27/18at 14: 27; Start 11/27/18 at 14:30; Stop 11/27/18 at 14:31; Status DC Metoclopramide HCl (Reglan Vial) 5 mg 1X ONCE IV Last administered on at 14:27; Start 11/27/18 at 14:30; Stop 11/27/18 at 14:31; Status DC Haloperidol Lactate (Haldol Inj) 5 mg 1X ONCE IVP Last administered on at 14:26; Start 11/27/18 at 14:30; Stop 11/27/18 at 14:31; Status DC Diphenhydramine HCl (Benadryl) 25 mg 1X ONCE IVP Last administered on at 14:26; Start 11/27/18 at 14:30; Stop 11/27/18 at 14:31; Status DC Famotidine (Pepcid Vial) 20 mg 1X ONCE IVP ; Start 11/27/18 at 14:15; Stop 08/05 at 14:16; Status UNV Lorazepam (Ativan) 1 mg 1X ONCE IV Last administered on 11/27/18at 15:12; Start 11/27/18 at 15:30; Stop 11/27/18 at 15:31; Status DC Ondansetron HCl (Zofran) 4 mg 1X ONCE IV Last administered on 11/27/18at 15:13 ; Start 11/27/18 at 15:30; Stop 11/27/18 at 15:31; Status DC Sodium Chloride 1,000 ml @ 1,000 mls/hr 1X ONCE IV Last administered on at 17:01; Start 11/27/18 at 16:45; Stop 11/27/18 at 17:44; Status DC Ondansetron HCl (Zofran) 4 mg 1X ONCE IV Last administered on 11/27/18at 17:01 ; Start 11/27/18 at 16:45; Stop 11/27/18 at 16:46; Status DC Lorazepam (Ativan) 1 mg 1X ONCE IV Last administered on 11/27/18at 17:01; Start 11/27/18 at 16:45; Stop 11/27/18 at 16:46; Status DC Ondansetron HCl (Zofran) 4 mg PRN Q8HRS PRN IV NAUSEA/VOMITING; Start 11/27/18 at 18:00; Stop 11/28/18 at 17:59 Sodium Chloride 1,000 ml @ 125 mls/hr Q8H IV Last administered on 11/28/18at 12 :06; Start 11/27/18 at 17:59; Stop 11/28/18 at 17:58 Ondansetron HCl (Zofran) 4 mg PRN Q6HRS PRN IV NAUSEA/VOMITING Last administered on 11/28/18at 08:25; Start 11/27/18 at 22:30 Prochlorperazine Edisylate (Compazine) 10 mg PRN Q6HRS PRN IV NAUSEA/VOMITING Last administered on 11/28/18at 02:43; Start 11/27/18 at 22:30 Al Hydroxide/Mg Hydroxide (Mylanta Plus Xs) 30 ml PRN Q3HRS PRN PO HEARTBURN / GAS; Start 11/27/18 at 22:30 Ketorolac Tromethamine (Toradol 15mg Vial) 15 mg PRN Q6HRS PRN IV PAIN Last administered on 11/28/18at 08:26; Start 11/27/18 at 22:30; Stop 12/02/18 at 22:29 Acetaminophen (Tylenol) 650 mg PRN Q6HRS PRN PO Headaches, Temp > 101.5F; Start 11/27/18 at 22:30 Magnesium Hydroxide (Milk Of Magnesia) 2,400 mg PRN Q12HR PRN PO CONSTIPATION; Start 11/27/18 at 22:30 Lorazepam (Ativan) 1 mg PRN Q4HRS PRN PO For CIWA 8-14; Start 11/27/18 at 22:30 ; Stop 11/28/18 at 08:53; Status DC Lorazepam (Ativan) 1 mg PRN Q3HRS PRN IV For CIWA 8-14 Last administered on 09/05at 08:37; Start 11/27/18 at 22:30; Stop 11/28/18 at 08:53; Status DC Clonidine HCl (Catapres) 0.1 mg PRN Q1HR PRN PO HR > 110 or DBP > 100, MRX3 Last administered on 11/27/18at 23:34; Start 11/27/18 at 22:30 Hydromorphone HCl (Dilaudid) 1 mg 1X ONCE IV Last administered on 11/28/18at 09 :12; Start 11/28/18 at 09:00; Stop 11/28/18 at 09:01; Status DC Lorazepam (Ativan) 2 mg PRN Q3HRS PRN IV ANXIETY / AGITATION Last administered on 11/28/18at 12:23; Start 11/28/18 at 09:00 Potassium Chloride (Klor-Con) 40 meq Q2H PO Last administered on 11/28/18at 12: 07; Start 11/28/18 at 10:00; Stop 11/28/18 at 14:01; Status DC Pantoprazole Sodium (PROTONIX VIAL for IV PUSH) 40 mg DAILYAC IVP Last administered on 11/28/18at 12:06; Start 11/28/18 at 11:30; Stop 11/28/18 at 12:26 ; Status DC Pantoprazole Sodium (Protonix) 40 mg DAILYAC PO ; Start 11/28/18 at 12:30 Tizanidine HCl (Zanaflex) 4 mg PRN Q8HRS PRN PO MUSCLE SPASMS Last administered on 11/28/18at 12:57; Start 11/28/18 at 12:30 Active Scripts Active Reported No Known Medications Prior To Admisstion (Info) Each 1 Each MC 1X claimed doesnt take meds at home Vitals/I & O Vital Sign - Last 24 Hours 11/27/18 11/27/18 11/27/18 11/27/18 14:30 15:00 15:30 16:00 Pulse 124 118 134 130 Resp 18 18 18 18 B/P (MAP) 151/65 (93) 125/68 (87) 131/75 (93) 123/57 (79) Pulse Ox 97 98 97 97 11/27/18 11/27/18 11/27/18 11/27/18 16:30 17:00 17:30 18:00 Pulse 136 134 135 136 Resp 18 18 18 18 B/P (MAP) 144/86 (105) 136/79 (98) 134/82 (99) 138/78 (98) Pulse Ox 97 97 97 97 11/27/18 11/27/18 11/27/18 11/28/18 19:00 23:10 23:34 03:09 Temp 98.6 98.2 98.7 98.6 98.2 98.7 Pulse 121 124 124 101 Resp 20 20 18 B/P (MAP) 141/72 (95) 133/79 (97) 133/79 86/45 (59) Pulse Ox 96 98 99 O2 Delivery Room Air Room Air Room Air 11/28/18 11/28/18 11/28/18 11/28/18 04:30 07:00 09:12 11:00 Temp 98.3 97.6 98.3 97.6 Pulse 85 86 80 Resp 18 20 18 B/P (MAP) 96/64 (75) 104/63 (77) 98/60 (73) Pulse Ox 96 96 97 O2 Delivery Room Air Room Air Room Air Intake and Output 11/27/18 11/27/18 11/28/18 15:01 23:01 07:01 Output Total 0 ml Balance 0 ml RAUL JENKINS MD Nov 28, 2018 14:06
[2018-11-28] MEDS: MELOXICAM 7.5 MG TABLET PO SCH (18:33)
--- NOTE | 2018-11-28 21:12 | NUR ---
Pt had been eating chicken noodle soup, requested for another cup @ the start of the shift. No c/o nausea. By 2034, pt called requesting for a nausea medicine and something to make her sleep. EITAN Vargas RN had informed the doctor earlier regarding a sleeping med but nothing had been ordered. Pt very anxious and verbally inappropriate when request/demand not immediately given @ that moment.
[2018-11-28] MEDS ORDERED: ZOLPIDEM 5 MG TABLET. PO PRN (22:07)
[2018-11-29 03:00] VITALS: BP 103/72
[2018-11-29] MEDS: PANTOPRAZOLE 40 MG TABLET.DR. PO SCH (06:13)
[2018-11-29 07:00] VITALS: BP 113/81
[2018-11-29] MEDS: ONDANSETRON PF 4 MG/2 ML VIAL. IV PRN ×2 (07:34→13:49)
[2018-11-29] MEDS: KETOROLAC 15 MG/ML VIAL. IV PRN ×2 (07:34→13:49)
--- NOTE | 2018-11-29 08:44 | NUR ---
SW following pt for anticipated dc needs. Chart reviewed. Pt lives at home with spouse/family and on room air. No SW needs indicated at this time. SW will continue to evaluate dc needs.
[2018-11-29] MEDS: MELOXICAM 7.5 MG TABLET PO SCH (09:19)
--- NOTE | 2018-11-29 09:32 | PDOC ---
Subjective: Subjective: Dry-heaves and abd pain, thinks she's had 3 stools. Tells me hasn't been able to eat. Objective: Objective: Reviewed nursing notes - ate chicken noodle soup, verbally inappropriate to staff. Vital Signs: Vital Signs Date Time Temp Pulse Resp B/P (MAP) Pulse Ox O2 Delivery O2 Flow Rate FiO2 11/29/18 07:00 98.2 94 17 113/81 (92) 98 Room Air 98.2 Imaging: KUB 11/28 IMPRESSION: No acute abdominal abnormality is detected. PE: GEN: NAD, was asleep LUNGS: CTAB HEART: RRR ABD: soft, diffusely tender per usual NEURO/PSYCH: A & O �3 A/P: Recurrent abd pain w/ n/v -- Extensive workup per GI consult note. JORDY RANDALL per primary. LIBBY CAO Nov 29, 2018 09:32
[2018-11-29 11:00] VITALS: BP 144/84
[2018-11-29] MEDS ORDERED: fentaNYL PF VIAL 100 MCG/2 ML VIAL IV ONE (11:00)
--- NOTE | 2018-11-29 11:10 | PDOC3 ---
Discharge Summary Visit Information Date of Admission: Nov 27, 2018 Date of Discharge: Nov 29, 2018 Admitting Diagnosis Comment: cyclic vomiting syndrome Possibly depression NOS-not on any meds Nondiabetic Final Diagnosis Problems Medical Problems: (1) Anxiety Status: Acute Brief Hospital Course Allergies Allergies Coded Allergies Type Severity Reaction Last Updated Verified coconut Allergy Severe Anaphylaxis 01/22/17 Yes Vital Signs Vital Signs Date Time Temp Pulse Resp B/P (MAP) Pulse Ox O2 Delivery O2 Flow Rate FiO2 11/29/18 07:00 98.2 94 17 113/81 (92) 98 Room Air 98.2 Lab Results Laboratory Tests Test 11/27/18 13:40 11/27/18 13:45 11/27/18 14:00 11/27/18 15:38 Urine Opiates Screen Neg (NEG) Urine Methadone Screen Neg (NEG) Urine Barbiturates Neg (NEG) Urine Phencyclidine Screen Neg (NEG) Urine Amphetamine/Methamphetamine Neg (NEG) Urine Benzodiazepines Screen Neg (NEG) Urine Cocaine Screen Neg (NEG) Urine Cannabinoids Screen Pos (NEG) Urine Ethyl Alcohol Neg (NEG) Bedside Urine HCG, Qualitative Hcg negative (Negative) White Blood Count 11.1 x10^3/uL (4.0-11.0) Red Blood Count 5.06 x10^6/uL (3.50-5.40) Hemoglobin 14.9 g/dL (12.0-15.5) Hematocrit 44.5 % (36.0-47.0) Mean Corpuscular Volume 88 fL (79-100) Mean Corpuscular Hemoglobin 29 pg (25-35) Mean Corpuscular Hemoglobin Concent 34 g/dL (31-37) Red Cell Distribution Width 14.5 % (11.5-14.5) Platelet Count 223 x10^3/uL (140-400) Neutrophils (%) (Auto) 79 % (31-73) Lymphocytes (%) (Auto) 15 % (24-48) Monocytes (%) (Auto) 5 % (0-9) Eosinophils (%) (Auto) 0 % (0-3) Basophils (%) (Auto) 1 % (0-3) Neutrophils # (Auto) 8.8 x10^3uL (1.8-7.7) Lymphocytes # (Auto) 1.7 x10^3/uL (1.0-4.8) Monocytes # (Auto) 0.6 x10^3/uL (0.0-1.1) Eosinophils # (Auto) 0.0 x10^3/uL (0.0-0.7) Basophils # (Auto) 0.1 x10^3/uL (0.0-0.2) Sodium Level 141 mmol/L (136-145) Potassium Level 4.0 mmol/L (3.5-5.1) Chloride Level 102 mmol/L (98-107) Carbon Dioxide Level 20 mmol/L (21-32) Anion Gap 19 (6-14) Blood Urea Nitrogen 14 mg/dL (7-20) Creatinine 0.8 mg/dL (0.6-1.0) Estimated GFR (Cockcroft-Gault) 87.4 BUN/Creatinine Ratio 18 (6-20) Glucose Level 165 mg/dL (70-99) Calcium Level 9.9 mg/dL (8.5-10.1) Total Bilirubin 0.4 mg/dL (0.2-1.0) Aspartate Amino Transf (AST/SGOT) 20 U/L (15-37) Alanine Aminotransferase (ALT/SGPT) 20 U/L (14-59) Alkaline Phosphatase 75 U/L (46-116) Total Protein 8.4 g/dL (6.4-8.2) Albumin 4.3 g/dL (3.4-5.0) Albumin/Globulin Ratio 1.0 (1.0-1.7) Lipase 170 U/L (73-393) Urine Collection Type Unknown Urine Color Yellow Urine Clarity Turbid Urine pH 5.5 Urine Specific [place] >=1.030 Urine Protein Negative mg/dL (NEG-TRACE) Urine Glucose (UA) Negative mg/dL (NEG) Urine Ketones (Stick) Negative mg/dL (NEG) Urine Blood Negative (NEG) Urine Nitrite Negative (NEG) Urine Bilirubin Negative (NEG) Urine Urobilinogen Dipstick 0.2 mg/dL (0.2 mg/dL) Urine Leukocyte Esterase Negative (NEG) Urine RBC 0 /HPF (0-2) Urine WBC 5-10 /HPF (0-4) Urine Squamous Epithelial Cells Many /LPF Urine Bacteria Few /HPF (0-FEW) Urine Mucus Mod /LPF Test 11/28/18 05:42 White Blood Count 9.9 x10^3/uL (4.0-11.0) Red Blood Count 4.09 x10^6/uL (3.50-5.40) Hemoglobin 12.2 g/dL (12.0-15.5) Hematocrit 36.3 % (36.0-47.0) Mean Corpuscular Volume 89 fL (79-100) Mean Corpuscular Hemoglobin 30 pg (25-35) Mean Corpuscular Hemoglobin Concent 34 g/dL (31-37) Red Cell Distribution Width 14.2 % (11.5-14.5) Platelet Count 171 x10^3/uL (140-400) Neutrophils (%) (Auto) 69 % (31-73) Lymphocytes (%) (Auto) 23 % (24-48) Monocytes (%) (Auto) 7 % (0-9) Eosinophils (%) (Auto) 1 % (0-3) Basophils (%) (Auto) 1 % (0-3) Neutrophils # (Auto) 6.8 x10^3uL (1.8-7.7) Lymphocytes # (Auto) 2.3 x10^3/uL (1.0-4.8) Monocytes # (Auto) 0.7 x10^3/uL (0.0-1.1) Eosinophils # (Auto) 0.0 x10^3/uL (0.0-0.7) Basophils # (Auto) 0.1 x10^3/uL (0.0-0.2) Sodium Level 141 mmol/L (136-145) Potassium Level 3.1 mmol/L (3.5-5.1) Chloride Level 107 mmol/L (98-107) Carbon Dioxide Level 23 mmol/L (21-32) Anion Gap 11 (6-14) Blood Urea Nitrogen 3 mg/dL (7-20) Creatinine 0.5 mg/dL (0.6-1.0) Estimated GFR (Cockcroft-Gault) 150.3 Glucose Level 92 mg/dL (70-99) Calcium Level 8.4 mg/dL (8.5-10.1) Brief Hospital Course Ms. Fernandez is a 23 old F known to the whole whole hospital because of cyclic vomiting syndrome. She is nondiabetic. She does not take any meds because she couldn't afford, she has no insurance and has no money. She is refusing to eat. Mild hypokalemia 3.1 but no active emesis or diarrhea. She's not taking Elavil for depression I thought she was. In any case no recent keep her here. She has had extensive GI workup, recent one is also normal. GI also consulted agrees with no more further workup and advance diet as tolerated Home today with Rx on chart in case some Lortab few scripts only Otherwise no reason to keep her here Addendum she is now coming up with medical reasons to stay, claims her IUD is not in place when I just provided her with a copy of her imaging that shows her IUD and perfectly placed signif time, dc - lots of calls for pt requests Discharge Information Condition at Discharge: Improved, Stable Disposition/Orders: D/C to Home Scheduled Info (No Known Medications Prior To Admisstion) Each, 1 EACH 1X for no meds as claimed, (Reported) claimed doesnt take meds at home Entered as Reported by: MARY HINES on 11/27/182235 Last Action: New Order on 11/27/182235 by GEOVANNI JACOBSEN MD Nov 29, 2018 11:10
--- NOTE | 2018-11-29 15:20 | NUR ---
Discharge Note: JESSICA GONZÁLES GOSHEN Discharge instructions and discharge home medications reviewed with Patient and a copy given. All questions have been answered and understanding verbalized. The following instructions and handouts were given: Lortab, Anxiety and Panic attacks, Discontinued lines and drains: 22G peripheral IV removed, catheter intact. Patient discharged to home with self-car via to [facility].
[2018-12-19] MEDS ORDERED: FENT1PAT13 TD (14:14)
[2018-12-19] MEDS ORDERED: LACT1CAP19 PO (14:14)
[2018-12-19] MEDS ORDERED: OXYC1TAB15 PO (14:14)
[2018-12-19] MEDS ORDERED: BUSP5TAB PO (14:14)
[2018-12-19] MEDS ORDERED: ZOLP5TAB PO (14:14)
== END 2018-11-29 15:10 | disposition home or self-care (01) | DRG 392 ==
LOC: ER 13:36 → 5 NORTH 17:57
PROVIDERS: ADMIT Internal Medicine; ATTEND Internal Medicine
DX: K31.89 Other diseases of stomach and duodenum (principal); F41.0 Panic disorder [episodic paroxysmal anxiety]; F12.10 Cannabis abuse, uncomplicated; J45.909 Unspecified asthma, uncomplicated; F32.9 Major depressive disorder, single episode, unspecified; K21.9 Gastro-esophageal reflux disease without esophagitis; R11.10 Vomiting, unspecified; E87.6 Hypokalemia; Z90.49 Acquired absence of other specified parts of digestive tract; Z83.3 Family history of diabetes mellitus; Z82.49 Family history of ischemic heart disease and other diseases of the circulatory system; Z91.19 Patient's noncompliance with other medical treatment and regimen
CPT/HCPCS: 36415; 74018; 80048; 80053; 80307; 81001; 81025; 83690; 85025; 87086; 96361; 96374; 96375; 96376; C9113; J0780; J1170; J1200; J1630; J1885; J2060; J2405; J2765; J3010; J3490; J7030; 99285-25; G0378

== ENCOUNTER 2018-12-03 11:20 | Emergency (ER) | payer BC ==
[~2018-12-03] VITALS: Ht 162.6 cm; Wt 75.3 kg
[2018-12-03] MEDS ORDERED: IV NORMAL SALINE 1000ML BAG 1,000 ML IV ONE (11:30)
[2018-12-03] MEDS ORDERED: FAMOTIDINE 20 MG/2 ML VIAL IVP ONE (11:30)
[2018-12-03 11:31] VITALS: BP 162/116
[2018-12-03] MEDS ORDERED: ONDANSETRON PF 4 MG/2 ML VIAL. IV ONE (12:00)
[2018-12-03] MEDS ORDERED: KETOROLAC 15 MG/ML VIAL. IV ONE (12:00)
[2018-12-03] MEDS ORDERED: ZIPRASIDONE IM 20 MG VIAL. IM ONE (12:00)
[2018-12-03 12:28] LABS: BILIRUBIN,URINE NEGATIVE (NEG); CLARITY,URINE TURBID; COLOR,URINE YELLOW; NITRITE,URINE NEGATIVE (NEG); PROTEIN,URINE 30 mg/dL (NEG-TRACE); UROBILINOGEN,URINE 0.2 mg/dL (0.2 mg/dL)
[2018-12-03 12:35] LABS: BARBITURATES NEG (NEG); BENZODIAZEPINES NEG (NEG); CANNABINOIDS POS (NEG); COCAINE NEG (NEG); METHADONE NEG (NEG); OPIATES NEG (NEG); PHENCYCLIDINE NEG (NEG)
[2018-12-03 12:39] LABS: AMORPHOUS SEDIMENT,UR PRESENT /HPF; BACTERIA,URINE 0 /HPF (0-FEW); RBC,URINE 0 /HPF (0-2); SQUAMOUS EPITHELIAL CELL,UR MANY /LPF; WBC,URINE 0 /HPF (0-4)
[2018-12-03 12:57] LABS: AMPHETAMINE/METHAMPHETAMINE NEG (NEG)
[2018-12-03 13:05] LABS: BASO % 0 % (0-3); EOS % 0 % (0-3); HEMATOCRIT 47.7 % (36.0-47.0); LYMPH # 1.3 x10^3/uL (1.0-4.8); LYMPH % 11 % (24-48); MEAN CORPUSCULAR HEMOGLOBIN 29 pg (25-35); MEAN CORPUSCULAR HGB CONC 34 g/dL (31-37); MEAN CORPUSCULAR VOLUME 87 fL (79-100); MONO # 0.5 x10^3/uL (0.0-1.1); MONO % 4 % (0-9); NEUT # 9.7 x10^3uL (1.8-7.7); NEUT % 84 % (31-73); PLATELET COUNT 195 x10^3/uL (140-400); RED BLOOD COUNT 5.46 x10^6/uL (3.50-5.40); WHITE BLOOD COUNT 11.5 x10^3/uL (4.0-11.0)
[2018-12-03 13:18] LABS: CALCIUM 9.9 mg/dL (8.5-10.1); CREATININE 0.8 mg/dL (0.6-1.0); GFR 87.4
[2018-12-03 13:26] LABS: ALBUMIN 4.7 g/dL (3.4-5.0); ALBUMIN/GLOBULIN RATIO 1.1 (1.0-1.7); TOTAL BILIRUBIN 0.5 mg/dL (0.2-1.0); TOTAL PROTEIN 8.9 g/dL (6.4-8.2)
[2018-12-03] MEDS ORDERED: CAPSAICIN 0.025% TOPICAL CREAM 60GM TUBE. TP ONE (14:15)
[2018-12-03] MEDS ORDERED: IV NORMAL SALINE 500ML BAG 500 ML IV ONE (15:15)
[2018-12-03] MEDS ORDERED: PROM25SU32 RC (15:39)
[2018-12-03] MEDS ORDERED: CAPS60CR2 TP (15:39)
[2018-12-03] MEDS ORDERED: FAMO-63 PO (15:39)
--- NOTE | 2018-12-03 15:40 | PHYS DOC ---
Past Medical History Past Medical History: Anxiety, Cyclic Vomiting, Other Additional Past Medical Histor: CYCLIC VOMITING SYNDROME, ANXIETY, PANIC DISORDER Past Surgical History: Cholecystectomy Alcohol Use: None Drug Use: Marijuana Adult General Chief Complaint Chief Complaint: ABDOMINAL PAIN HPI HPI Patient is a 23 year old [f__sex] who presents with [] Review of Systems Review of Systems Constitutional: Denies fever or chills [] Eyes: Denies change in visual acuity, redness, or eye pain [] HENT: Denies nasal congestion or sore throat [] Respiratory: Denies cough or shortness of breath [] Cardiovascular: No additional information not addressed in HPI [] GI: Denies abdominal pain, nausea, vomiting, bloody stools or diarrhea [] : Denies dysuria or hematuria [] Musculoskeletal: Denies back pain or joint pain [] Integument: Denies rash or skin lesions [] Neurologic: Denies headache, focal weakness or sensory changes [] Endocrine: Denies polyuria or polydipsia [] All other systems were reviewed and found to be within normal limits, except as documented in this note. Current Medications Current Medications Current Medications Medications (Trade) Dose Ordered Sig/Arnaldo Start Time Stop Time Status Last Admin Dose Admin Capsaicin (Zostrix) 1 sami 1X ONCE 12/03/18 14:15 12/03/18 14:16 DC 12/03/18 15:06 1 SAMI Famotidine (Pepcid Vial) 20 mg 1X ONCE 12/03/18 11:30 12/03/18 11:31 DC 12/03/18 12:58 20 MG Ketorolac Tromethamine (Toradol 15mg Vial) 15 mg 1X ONCE 12/03/18 12:00 12/03/18 12:01 DC 12/03/18 12:59 15 MG Lorazepam (Ativan) 1 mg 1X ONCE 12/03/18 14:15 12/03/18 14:16 DC 12/03/18 15:01 1 MG Ondansetron HCl (Zofran) 4 mg 1X ONCE 12/03/18 12:00 12/03/18 12:01 DC 12/03/18 12:57 4 MG Sodium Chloride 500 ml @ 500 mls/hr 1X ONCE 12/03/18 15:15 12/03/18 16:14 12/03/18 15:24 500 MLS/HR Ziprasidone (Geodon Im) 10 mg 1X ONCE 12/03/18 12:00 12/03/18 12:01 DC 12/03/18 12:00 10 MG Allergies Allergies Allergies Coded Allergies Type Severity Reaction Last Updated Verified coconut Allergy Severe Anaphylaxis 01/22/17 Yes Physical Exam Physical Exam Constitutional: Well developed, well nourished, no acute distress, non-toxic appearance. [] HENT: Normocephalic, atraumatic, bilateral external ears normal, oropharynx moist, no oral exudates, nose normal. [] Eyes: PERRLA, EOMI, conjunctiva normal, no discharge. [] Neck: Normal range of motion, no tenderness, supple, no stridor. [] Cardiovascular:Heart rate regular rhythm, no murmur [] Lungs & Thorax: Bilateral breath sounds clear to auscultation [] Abdomen: Bowel sounds normal, soft, no tenderness, no masses, no pulsatile masses. [] Skin: Warm, dry, no erythema, no rash. [] Back: No tenderness, no CVA tenderness. [] Extremities: No tenderness, no cyanosis, no clubbing, ROM intact, no edema. [] Neurologic: Alert and oriented X 3, normal motor function, normal sensory function, no focal deficits noted. [] Psychologic: Affect normal, judgement normal, mood normal. [] Current Patient Data Lab Values Laboratory Tests Test 12/03/18 11:35 12/03/18 12:09 12/03/18 12:54 Urine Collection Type Unknown Urine Color Yellow Urine Clarity Turbid Urine pH 5.0 Urine Specific [place] >=1.030 Urine Protein 30 mg/dL (NEG-TRACE) Urine Glucose (UA) Negative mg/dL (NEG) Urine Ketones (Stick) Negative mg/dL (NEG) Urine Blood Small (NEG) Urine Nitrite Negative (NEG) Urine Bilirubin Negative (NEG) Urine Urobilinogen Dipstick 0.2 mg/dL (0.2 mg/dL) Urine Leukocyte Esterase Small (NEG) Urine RBC 0 /HPF (0-2) Urine WBC 0 /HPF (0-4) Urine Squamous Epithelial Cells Many /LPF Urine Amorphous Sediment Present /HPF Urine Bacteria 0 /HPF (0-FEW) Urine Opiates Screen Neg (NEG) Urine Methadone Screen Neg (NEG) Urine Barbiturates Neg (NEG) Urine Phencyclidine Screen Neg (NEG) Urine Amphetamine/Methamphetamine Neg (NEG) Urine Benzodiazepines Screen Neg (NEG) Urine Cocaine Screen Neg (NEG) Urine Cannabinoids Screen Pos (NEG) Urine Ethyl Alcohol Neg (NEG) POC Urine HCG, Qualitative Hcg negative (Negative) White Blood Count 11.5 x10^3/uL (4.0-11.0) H Red Blood Count 5.46 x10^6/uL (3.50-5.40) H Hemoglobin 16.0 g/dL (12.0-15.5) H Hematocrit 47.7 % (36.0-47.0) H Mean Corpuscular Volume 87 fL (79-100) Mean Corpuscular Hemoglobin 29 pg (25-35) Mean Corpuscular Hemoglobin Concent 34 g/dL (31-37) Red Cell Distribution Width 14.0 % (11.5-14.5) Platelet Count 195 x10^3/uL (140-400) Neutrophils (%) (Auto) 84 % (31-73) H Lymphocytes (%) (Auto) 11 % (24-48) L Monocytes (%) (Auto) 4 % (0-9) Eosinophils (%) (Auto) 0 % (0-3) Basophils (%) (Auto) 0 % (0-3) Neutrophils # (Auto) 9.7 x10^3uL (1.8-7.7) H Lymphocytes # (Auto) 1.3 x10^3/uL (1.0-4.8) Monocytes # (Auto) 0.5 x10^3/uL (0.0-1.1) Eosinophils # (Auto) 0.0 x10^3/uL (0.0-0.7) Basophils # (Auto) 0.0 x10^3/uL (0.0-0.2) Sodium Level 138 mmol/L (136-145) Potassium Level 4.0 mmol/L (3.5-5.1) Chloride Level 100 mmol/L (98-107) Carbon Dioxide Level 23 mmol/L (21-32) Anion Gap 15 (6-14) H Blood Urea Nitrogen 11 mg/dL (7-20) Creatinine 0.8 mg/dL (0.6-1.0) Estimated GFR (Cockcroft-Gault) 87.4 BUN/Creatinine Ratio 14 (6-20) Glucose Level 134 mg/dL (70-99) H Calcium Level 9.9 mg/dL (8.5-10.1) Total Bilirubin 0.5 mg/dL (0.2-1.0) Aspartate Amino Transferase (AST) 18 U/L (15-37) Alanine Aminotransferase (ALT) 20 U/L (14-59) Alkaline Phosphatase 81 U/L (46-116) Total Protein 8.9 g/dL (6.4-8.2) H Albumin 4.7 g/dL (3.4-5.0) Albumin/Globulin Ratio 1.1 (1.0-1.7) Lipase 101 U/L (73-393) Laboratory Tests 12/03/18 12:54 Laboratory Tests 12/03/18 12:54 EKG EKG [] Radiology/Procedures Radiology/Procedures [] Course & Med Decision Making Course & Med Decision Making Pertinent Labs and Imaging studies reviewed. (See chart for details) [] Dragon Disclaimer Dragon Disclaimer This electronic medical record was generated, in whole or in part, using a voice recognition dictation system. Departure Departure Impression: Primary Impression: Cyclic vomiting syndrome Additional Impression: Cannabis abuse Disposition: HOME, SELF-CARE Condition: STABLE Referrals: NO PCP (PCP) LUIS F HO MD Patient Instructions: Cyclic Vomiting Syndrome, Marijuana Abuse and Chemical Dependency Scripts Capsaicin (CAPSAICIN) 60 Gm Cream..g. 1 SAMI TP TID PRN PRN for PAIN, #1 EACH Prov: ANGELINA MASSEY DO 12/03/18 Famotidine (PEPCID) 20 Mg Tablet 20 MG PO BID, #20 TAB Prov: ANGELINA MASSEY DO 12/03/18 Promethazine HCl (Phenergan) 25 Mg Supp.rect 25 MG RC Q8HRS PRN for NAUSEA/VOMITING, #14 SUPP.RECT Prov: ANGELINA MASSEY DO 12/03/18 Problem Qualifiers Primary Impression: Cyclic vomiting syndrome Vomiting Intractability: intractable Nausea presence: with nausea Qualified Codes: G43.A1 - Cyclical vomiting, intractable ANGELINA MASSEY DO Dec 03, 2018 15:40
== END 2018-12-03 15:59 | disposition home or self-care (01) ==
LOC: ER 11:20
DX: G43.A1 Cyclical vomiting, in migraine, intractable (principal); F12.20 Cannabis dependence, uncomplicated; F41.9 Anxiety disorder, unspecified; Z90.49 Acquired absence of other specified parts of digestive tract; Z91.018 Allergy to other foods
CPT/HCPCS: 36415; 80053; 80307; 81001; 81025; 83690; 85025; 87086; 96361; 96372; 96374; 96375; 99283; J1885; J2060; J2405; J3486; J3490; J7030; J7040

== ENCOUNTER 2018-12-05 17:54 | Emergency (ER) | payer BC ==
[~2018-12-05] VITALS: Ht 162.6 cm; Wt 61.2 kg
[~2018-12-05 17:54] MED LIST changes: +CAPS60CR2 TP; +FAMO-63 PO
[2018-12-05 18:33] VITALS: BP 126/73
[2018-12-05] MEDS ORDERED: HALOPERIDOL LACTATE 5 MG/ML VIAL. IM ONE (19:00)
--- NOTE | 2018-12-05 19:19 | PHYS DOC ---
Past Medical History Past Medical History: Anxiety, Cyclic Vomiting, Other Additional Past Medical Histor: CYCLIC VOMITING SYNDROME, ANXIETY, PANIC DISORDER Past Surgical History: Cholecystectomy Alcohol Use: None Drug Use: Marijuana Adult General Chief Complaint Chief Complaint: NAUSEA/VOMITING/DIARRHA HPI HPI Patient is a 23 year old female who presents with abdominal pain vomiting and anxiety patient has had 13 visits since September 17 for similar symptoms she is still smoking marijuana. She says she has not smoked in approximately a week however she has told me that several times before as well her drug screen is routinely positive. Review of Systems Review of Systems Constitutional: Denies fever or chills [] Eyes: Denies change in visual acuity, redness, or eye pain [] HENT: Denies nasal congestion or sore throat [] Respiratory: Denies cough or shortness of breath [] Cardiovascular: No additional information not addressed in HPI [] GI: Denies abdominal pain, nausea, vomiting, bloody stools or diarrhea [] : Denies dysuria or hematuria [] Musculoskeletal: Denies back pain or joint pain [] Integument: Denies rash or skin lesions [] Neurologic: Denies headache, focal weakness or sensory changes [] Endocrine: Denies polyuria or polydipsia [] All other systems were reviewed and found to be within normal limits, except as documented in this note. Current Medications Current Medications Current Medications Medications (Trade) Dose Ordered Sig/Arnaldo Start Time Stop Time Status Last Admin Dose Admin Haloperidol Lactate (Haldol Inj) 5 mg 1X ONCE 12/05/18 19:00 12/05/18 19:05 DC 12/05/18 19:22 5 MG Lorazepam (Ativan) 2 mg 1X ONCE 12/05/18 19:00 12/05/18 19:05 DC 12/05/18 19:22 2 MG Allergies Allergies Allergies Coded Allergies Type Severity Reaction Last Updated Verified coconut Allergy Severe Anaphylaxis 01/22/17 Yes Physical Exam Physical Exam Constitutional: Well developed, well nourished, no acute distress, non-toxic appearance. [] HENT: Normocephalic, atraumatic, bilateral external ears normal, oropharynx moist, no oral exudates, nose normal. [] Eyes: PERRLA, EOMI, conjunctiva normal, no discharge. [] Neck: Normal range of motion, no tenderness, supple, no stridor. [] Abdomen: , soft, unreliable exam, no masses, no pulsatile masses. [] Skin: Warm, dry, no erythema, no rash. [] Back: No tenderness, no CVA tenderness. [] Extremities: No tenderness, no cyanosis, no clubbing, ROM intact, no edema. [] Neurologic: Alert and oriented X 3, normal motor function, normal sensory function, no focal deficits noted. [] Psychologic: very anxious. calm when not disturbed, shaking and increased psychomotor activity when i walk in the room Current Patient Data Vital Signs Vital Signs Date Time Temp Pulse Resp B/P (MAP) Pulse Ox O2 Delivery O2 Flow Rate FiO2 12/05/18 18:33 100.0 96 24 126/73 (90) 97 Room Air 100.0 EKG EKG [] Radiology/Procedures Radiology/Procedures [] Course & Med Decision Making Course & Med Decision Making Pertinent Labs and Imaging studies reviewed. (See chart for details) 13 VISITS SINCE 09/17/18. SIMILAR PRESENTATION ADVISED MARIJUANA CESSATION pt given haldol and ativan and was d/c'd. Ce Disclaimer Ce Disclaimer This electronic medical record was generated, in whole or in part, using a voice recognition dictation system. Departure Departure Impression: Primary Impression: Marijuana use Additional Impression: Cyclic vomiting syndrome Disposition: HOME, SELF-CARE Condition: STABLE Referrals: NO PCP (PCP) Patient Instructions: Nausea and Vomiting, [id number] Problem Qualifiers JOEL OCHOA MD Dec 05, 2018 19:19
== END 2018-12-05 19:35 | disposition home or self-care (01) ==
LOC: ER 17:54
DX: G43.A0 Cyclical vomiting, in migraine, not intractable (principal); F41.9 Anxiety disorder, unspecified; F12.20 Cannabis dependence, uncomplicated; Z90.49 Acquired absence of other specified parts of digestive tract
CPT/HCPCS: 96372; 99283; J1630; J2060; 99284

== ENCOUNTER 2018-12-09 01:28 | Emergency (ER) | payer BC ==
[~2018-12-09] VITALS: Ht 162.6 cm; Wt 61.2 kg
[2018-12-09] MEDS ORDERED: HYOSCYAMINE 0.125 MG TAB.RAPDIS PO ONE (01:45)
[2018-12-09] MEDS ORDERED: FAMOTIDINE 20 MG/2 ML VIAL IVP ONE (01:45)
[2018-12-09] MEDS ORDERED: KETOROLAC 15 MG/ML VIAL. IV ONE (01:45)
[2018-12-09] MEDS ORDERED: IV NORMAL SALINE 1000ML BAG 1,000 ML IV ONE (01:45)
[2018-12-09] MEDS ORDERED: ONDANSETRON PF 4 MG/2 ML VIAL. IV ONE (01:45)
[2018-12-09 01:52] LABS: BASO # 0.1 x10^3/uL (0.0-0.2); BASO % 0 % (0-3); EOS # 0.1 x10^3/uL (0.0-0.7); EOS % 1 % (0-3); HEMATOCRIT 39.3 % (36.0-47.0); HEMOGLOBIN 13.7 g/dL (12.0-15.5); LYMPH # 1.6 x10^3/uL (1.0-4.8); LYMPH % 10 % (24-48); MEAN CORPUSCULAR HEMOGLOBIN 30 pg (25-35); MEAN CORPUSCULAR HGB CONC 35 g/dL (31-37); MEAN CORPUSCULAR VOLUME 86 fL (79-100); MONO # 0.9 x10^3/uL (0.0-1.1); MONO % 6 % (0-9); NEUT # 13.3 x10^3uL (1.8-7.7); NEUT % 84 % (31-73); PLATELET COUNT 247 x10^3/uL (140-400); RED BLOOD COUNT 4.59 x10^6/uL (3.50-5.40)
[2018-12-09 02:00] LABS: CALCIUM 9.9 mg/dL (8.5-10.1); CREATININE 0.7 mg/dL (0.6-1.0)
[2018-12-09 02:06] LABS: ALBUMIN 2.9 g/dL (3.4-5.0); ALBUMIN/GLOBULIN RATIO 0.5 (1.0-1.7); TOTAL BILIRUBIN 0.8 mg/dL (0.2-1.0); TOTAL PROTEIN 8.8 g/dL (6.4-8.2)
[2018-12-09] MEDS ORDERED: POTASSIUM CHLORIDE 20 MEQ TABLET.ER. PO ONE (03:00)
[2018-12-09] MEDS ORDERED: CAPS60CR2 TP (05:16)
[2018-12-09] MEDS ORDERED: ONDA4TAB12 PO (05:16)
[2018-12-09] MEDS ORDERED: LORA0.5T96 PO (05:16)
[2018-12-09] MEDS ORDERED: FAMO-63 PO (05:16)
--- NOTE | 2018-12-09 05:16 | PHYS DOC ---
Past Medical History Past Medical History: Anxiety, Cyclic Vomiting, Other Additional Past Medical Histor: CYCLIC VOMITING SYNDROME, ANXIETY, PANIC DISORDER Past Surgical History: Cholecystectomy Alcohol Use: None Drug Use: Marijuana Adult General Chief Complaint Chief Complaint: NAUSEA/VOMITING/DIARRHA HPI HPI 23 y/o female presents with 2 day history of uncontrollable nausea and vomiting. Hx of known cyclic vomiting syndrome. Hx of THC abuse. Denies fever /chills. Reports associated abdominal pain which patient reports is "all over" . Seen 2 days ago in ED for same. Reports isn't better. Denies . LMP 1 week ago. Denies trauma. Denies fever/chills. Review of Systems Review of Systems Constitutional: Denies fever or chills [] Eyes: Denies change in visual acuity, redness, or eye pain [] HENT: Denies nasal congestion or sore throat [] Respiratory: Denies cough or shortness of breath [] Cardiovascular: Denies chest pain or palpitations GI: Reports abdominal pain, nausea, and vomiting; denies diarrhea [] : Denies dysuria or hematuria [] Musculoskeletal: Denies back pain or joint pain [] Integument: Denies rash or skin lesions [] Neurologic: Denies headache, focal weakness or sensory changes [] Complete systems were reviewed and found to be within normal limits, except as documented in this note. Current Medications Current Medications Current Medications Medications (Trade) Dose Ordered Sig/Arnaldo Start Time Stop Time Status Last Admin Dose Admin Capsaicin (Zostrix) 1 sami 1X ONCE 12/09/18 05:30 12/09/18 05:31 DC 12/09/18 05:34 1 SAMI Famotidine (Pepcid Vial) 20 mg 1X ONCE 12/09/18 01:45 12/09/18 01:46 DC 12/09/18 03:16 20 MG Hyoscyamine (Anaspaz) 0.125 mg 1X ONCE 12/09/18 01:45 12/09/18 01:46 DC 12/09/18 03:09 0.125 MG Ketorolac Tromethamine (Toradol 15mg Vial) 15 mg 1X ONCE 12/09/18 01:45 12/09/18 01:46 DC 12/09/18 03:12 15 MG Lorazepam (Ativan) 1 mg 1X ONCE 12/09/18 05:15 12/09/18 05:16 DC 12/09/18 05:15 1 MG Ondansetron HCl (Zofran) 4 mg 1X ONCE 12/09/18 01:45 12/09/18 01:46 DC 12/09/18 03:13 4 MG Potassium Chloride (Klor-Con) 40 meq 1X ONCE 12/09/18 03:00 12/09/18 03:01 DC 12/09/18 04:24 40 MEQ Sodium Chloride 1,000 ml @ 1,000 mls/hr 1X ONCE 12/09/18 01:45 12/09/18 02:44 DC 12/09/18 03:08 1,000 MLS/HR Allergies Allergies Allergies Coded Allergies Type Severity Reaction Last Updated Verified coconut Allergy Severe Anaphylaxis 01/22/17 Yes Physical Exam Physical Exam Constitutional: Well developed, well nourished, no acute distress, non-toxic appearance. [] HENT: Normocephalic, atraumatic, oropharynx moist Eyes: Conjunctiva normal, no discharge. [] Neck: Normal range of motion, no tenderness, supple, no stridor. [] Cardiovascular: Heart rate regular rhythm, no murmur [] Lungs & Thorax: Bilateral breath sounds clear to auscultation [] Abdomen: Soft, mild diffuse tenderness, no guarding/rebound tenderness/ distention Skin: Warm, dry, no erythema, no rash. [] Back: No tenderness, no CVA tenderness. [] Extremities: No tenderness, ROM intact, no edema. [] Neurologic: Alert and oriented X 3, normal motor function, normal sensory function, no focal deficits noted. [] Psychologic: Affect anxious, judgement normal Current Patient Data Vital Signs Vital Signs Date Time Temp Pulse Resp B/P (MAP) Pulse Ox O2 Delivery O2 Flow Rate FiO2 12/09/18 05:30 78 16 140/98 (112) 96 Room Air 12/09/18 01:29 99.7 99.7 Lab Values Laboratory Tests Test 12/09/18 01:43 White Blood Count 16.0 x10^3/uL (4.0-11.0) H Red Blood Count 4.59 x10^6/uL (3.50-5.40) Hemoglobin 13.7 g/dL (12.0-15.5) Hematocrit 39.3 % (36.0-47.0) Mean Corpuscular Volume 86 fL (79-100) Mean Corpuscular Hemoglobin 30 pg (25-35) Mean Corpuscular Hemoglobin Concent 35 g/dL (31-37) Red Cell Distribution Width 14.0 % (11.5-14.5) Platelet Count 247 x10^3/uL (140-400) Neutrophils (%) (Auto) 84 % (31-73) H Lymphocytes (%) (Auto) 10 % (24-48) L Monocytes (%) (Auto) 6 % (0-9) Eosinophils (%) (Auto) 1 % (0-3) Basophils (%) (Auto) 0 % (0-3) Neutrophils # (Auto) 13.3 x10^3uL (1.8-7.7) H Lymphocytes # (Auto) 1.6 x10^3/uL (1.0-4.8) Monocytes # (Auto) 0.9 x10^3/uL (0.0-1.1) Eosinophils # (Auto) 0.1 x10^3/uL (0.0-0.7) Basophils # (Auto) 0.1 x10^3/uL (0.0-0.2) Sodium Level 133 mmol/L (136-145) L Potassium Level 3.0 mmol/L (3.5-5.1) L Chloride Level 92 mmol/L (98-107) L Carbon Dioxide Level 26 mmol/L (21-32) Anion Gap 15 (6-14) H Blood Urea Nitrogen 10 mg/dL (7-20) Creatinine 0.7 mg/dL (0.6-1.0) Estimated GFR (Cockcroft-Gault) 102.0 BUN/Creatinine Ratio 14 (6-20) Glucose Level 127 mg/dL (70-99) H Calcium Level 9.9 mg/dL (8.5-10.1) Magnesium Level 2.1 mg/dL (1.8-2.4) Total Bilirubin 0.8 mg/dL (0.2-1.0) Aspartate Amino Transferase (AST) 37 U/L (15-37) Alanine Aminotransferase (ALT) 27 U/L (14-59) Alkaline Phosphatase 69 U/L (46-116) Total Protein 8.8 g/dL (6.4-8.2) H Albumin 2.9 g/dL (3.4-5.0) L Albumin/Globulin Ratio 0.5 (1.0-1.7) L Lipase 97 U/L (73-393) Ethyl Alcohol Level < 10 mg/dL (0-10) Laboratory Tests 12/09/18 01:43 Laboratory Tests 12/09/18 01:43 EKG EKG [] Radiology/Procedures Radiology/Procedures [] Course & Med Decision Making Course & Med Decision Making Pertinent Lab studies reviewed. (See chart for details) Patient well known for cyclic vomiting syndrome due to THC presents for re- evaluation of similar symptoms. Seen 2 days ago in ED for same. Abdomen non- peritoneal. Labs obtained and posted to chart. IVF hydration given. Patient stable for discharge home with close outpatient follow-up with PCP/GI. Patient strongly advised to discontinue THC abuse. Discussed findings and plan with patient, who acknowledges understanding and agreement Dragon Disclaimer Dragon Disclaimer This electronic medical record was generated, in whole or in part, using a voice recognition dictation system. Departure Departure Impression: Primary Impression: Cyclical vomiting with nausea Disposition: HOME, SELF-CARE Condition: STABLE Referrals: NO PCP (PCP) LUIS F HO MD Patient Instructions: Cyclic Vomiting Syndrome Scripts Capsaicin (CAPSAICIN) 60 Gm Cream..g. 1 SAMI TP TID PRN PRN for PAIN, #1 TUBE Prov: ANGELINA MASSEY DO 12/09/18 Problem Qualifiers Primary Impression: Cyclical vomiting with nausea Vomiting Intractability: intractable Qualified Codes: G43.A1 - Cyclical vomiting, intractable ANGELINA MASSEY DO Dec 09, 2018 05:16
[2018-12-09 05:30] VITALS: BP 140/98
[2018-12-09] MEDS ORDERED: CAPSAICIN 0.025% TOPICAL CREAM 60GM TUBE. TP ONE (05:30)
== END 2018-12-09 05:45 | disposition home or self-care (01) ==
LOC: ER 01:28
DX: G43.A1 Cyclical vomiting, in migraine, intractable (principal); F41.9 Anxiety disorder, unspecified; Z90.49 Acquired absence of other specified parts of digestive tract; Z91.018 Allergy to other foods
CPT/HCPCS: 36415; 80053; 83690; 83735; 85025; 96374; 96375; 96376; 99284; G0480; J1885; J2060; J2405; J3490; J7030

== ENCOUNTER 2018-12-10 09:50 | Emergency (ER) | payer BC ==
[~2018-12-10] VITALS: Ht 162.6 cm; Wt 61.2 kg
[~2018-12-10 09:50] MED LIST changes: +ONDA4TAB12 PO
[2018-12-10] MEDS ORDERED: LORazepam 1 MG TABLET PO ONE (10:30)
[2018-12-10 10:38] VITALS: BP 154/90
--- NOTE | 2018-12-10 10:52 | PHYS DOC ---
Past Medical History Past Medical History: Anxiety, Cyclic Vomiting, Other Additional Past Medical Histor: PANIC DISORDER Past Surgical History: Cholecystectomy Alcohol Use: None Drug Use: Marijuana Social History Narrative: LAST SMOKED 2 WEEKS AGO Adult General Chief Complaint Chief Complaint: ABDOMINAL PAIN HPI HPI Patient is a 23 year old female brought in by ambulance with abdominal pain chest pain anxiety she's been to this ER several times an extraordinarily number of times actually including yesterday she says that she has run out of her insurance she has no money to pay for her amitriptyline she says she is using capsaicin cream at home with minimal relief she says she is very anxious she denies any suicidality she told me that she is trying to stop smoking marijuana. Pain is sharp severe diffuse similar to multiple previous presentations Review of Systems Review of Systems Constitutional: Denies fever or chills [] Eyes: Denies change in visual acuity, redness, or eye pain [] HENT: Denies nasal congestion or sore throat [] Respiratory: Denies cough or shortness of breath [] Cardiovascular: No additional information not addressed in HPI [] GI: All other systems were reviewed and found to be within normal limits, except as documented in this note. Current Medications Current Medications Current Medications Medications (Trade) Dose Ordered Sig/Arnaldo Start Time Stop Time Status Last Admin Dose Admin Lorazepam (Ativan) 1 mg 1X ONCE 12/10/18 10:30 12/10/18 10:31 DC 12/10/18 10:35 1 MG Olanzapine (ZyPREXA ZYDIS) 5 mg 1X ONCE 12/10/18 10:30 12/10/18 10:31 DC 12/10/18 10:35 5 MG Allergies Allergies Allergies Coded Allergies Type Severity Reaction Last Updated Verified coconut Allergy Severe Anaphylaxis 01/22/17 Yes Physical Exam Physical Exam Patient appears anxious well nourished, no acute distress, non-toxic appearance. [] HENT: Normocephalic, atraumatic, bilateral external ears normal, oropharynx moist, no oral exudates, nose normal. [] Eyes: PERRLA, EOMI, conjunctiva normal, no discharge. [] Neck: Normal range of motion, no tenderness, supple, no stridor. [] Pulmonary: Normal respiratory effort no increased work of breathing no obvious chest wall trauma. While asleep observe the patient resting comfortably with no distress and then when she woke up she began to breathe fast. Appeared To have a volitional component Abdomen: SOFT Skin: Warm, dry, no erythema, no rash. [] Back: No tenderness, no CVA tenderness. [] Extremities: No tenderness, no cyanosis, no clubbing, ROM intact, no edema. [] Neurologic: Alert and oriented X 3, normal motor function, normal sensory function, no focal deficits noted. [] Psychologic: Significant anxiety is noted there is no suicidal ideation by history Current Patient Data Vital Signs Vital Signs Date Time Temp Pulse Resp B/P (MAP) Pulse Ox O2 Delivery O2 Flow Rate FiO2 12/10/18 10:38 104 19 154/90 (111) 96 Room Air 12/10/18 09:50 99.3 99.3 Lab Values Laboratory Tests Test 12/10/18 10:04 POC Urine HCG, Qualitative Hcg negative (Negative) EKG EKG [] Radiology/Procedures Radiology/Procedures [] Course & Med Decision Making Course & Med Decision Making Pertinent Labs and Imaging studies reviewed. (See chart for details) []Frequent ER visits including yesterday with fairly unremarkable labs essentially at her baseline I did speak with her in detail I did tell her that we need to come up with an alternative plan to try to minimize her overuse of the emergency room. I have told her no parenteral injections today as clearly they are not helping since she keeps coming back. Oral ZYDIS and Ativan were given encouraged marijuana cessation and recommended follow-up in [facility] where she says she has been seen before. Given the timeline as well as the negative workup just yesterday I don't think that she needs any more labs or imaging at this time. She has had an extensive medical workup in the past Dragon Disclaimer Dragon Disclaimer This electronic medical record was generated, in whole or in part, using a voice recognition dictation system. Departure Departure Impression: Primary Impression: Cyclical vomiting with nausea Disposition: 01 HOME, SELF-CARE Condition: STABLE Referrals: NO PCP (PCP) Patient Instructions: Anxiety and Panic Attacks, [id number] Additional Instructions: GO TO [facility] JOEL OCHOA MD Dec 10, 2018 10:52
== END 2018-12-10 10:38 | disposition home or self-care (01) ==
LOC: ER 09:50
DX: G43.A0 Cyclical vomiting, in migraine, not intractable (principal); F41.9 Anxiety disorder, unspecified; R07.89 Other chest pain; R10.9 Unspecified abdominal pain; F12.20 Cannabis dependence, uncomplicated; Z90.49 Acquired absence of other specified parts of digestive tract; Z91.018 Allergy to other foods
CPT/HCPCS: 81025; 99283

== ENCOUNTER 2018-12-11 18:57 | Observation (INO) | payer BC ==
[~2018-12-11] VITALS: Ht 162.6 cm; Wt 66.5 kg
[2018-12-11 19:57] LABS: BILIRUBIN,URINE NEGATIVE (NEG); CLARITY,URINE CLEAR; COLOR,URINE YELLOW; NITRITE,URINE NEGATIVE (NEG); PROTEIN,URINE NEGATIVE (NEG-TRACE)
[2018-12-11] MEDS ORDERED: SUMAtriptan SUCC 6 MG/0.5 ML VIAL. SQ ONE (20:00)
[2018-12-11] MEDS ORDERED: PROCHLORPERAZINE 10 MG/2 ML VIAL. IM ONE (20:00)
[2018-12-11] MEDS ORDERED: LORazepam 1 MG TABLET PO ONE (20:00)
[2018-12-11 20:02] LABS: BACTERIA,URINE FEW /HPF (0-FEW); RBC,URINE OCC /HPF (0-2); SQUAMOUS EPITHELIAL CELL,UR MOD /LPF
[2018-12-11 20:03] LABS: AMORPHOUS SEDIMENT,UR PRESENT /HPF; AMPHETAMINE/METHAMPHETAMINE NEG (NEG); BARBITURATES NEG (NEG); BENZODIAZEPINES NEG (NEG); CANNABINOIDS POS (NEG); COCAINE NEG (NEG); METHADONE NEG (NEG); OPIATES NEG (NEG); PHENCYCLIDINE NEG (NEG)
[2018-12-11 20:15] LABS: BASO # 0.1 x10^3/uL (0.0-0.2); BASO % 1 % (0-3); EOS # 0.3 x10^3/uL (0.0-0.7); EOS % 3 % (0-3); HEMATOCRIT 37.5 % (36.0-47.0); HEMOGLOBIN 12.8 g/dL (12.0-15.5); LYMPH # 1.6 x10^3/uL (1.0-4.8); LYMPH % 14 % (24-48); MEAN CORPUSCULAR HEMOGLOBIN 30 pg (25-35); MEAN CORPUSCULAR HGB CONC 34 g/dL (31-37); MEAN CORPUSCULAR VOLUME 87 fL (79-100); MONO # 0.7 x10^3/uL (0.0-1.1); MONO % 6 % (0-9); NEUT # 9.4 x10^3uL (1.8-7.7); NEUT % 77 % (31-73); PLATELET COUNT 313 x10^3/uL (140-400); RED BLOOD COUNT 4.33 x10^6/uL (3.50-5.40); WHITE BLOOD COUNT 12.1 x10^3/uL (4.0-11.0)
[2018-12-11 20:24] LABS: PROTHROMBIN TIME PATIENT 15.3 SEC (11.7-14.0)
[2018-12-11 20:29] LABS: ACETAMIN < 2 mcg/ml (10-30)
[2018-12-11 20:31] LABS: ALBUMIN 2.5 g/dL (3.4-5.0); ALBUMIN/GLOBULIN RATIO 0.5 (1.0-1.7); CREATININE 0.5 mg/dL (0.6-1.0); GFR 150.3; TOTAL BILIRUBIN 0.4 mg/dL (0.2-1.0); TOTAL PROTEIN 7.5 g/dL (6.4-8.2)
[2018-12-11 20:32] LABS: POTASSIUM 2.9 mmol/L (3.5-5.1)
[2018-12-11] MEDS ORDERED: POTASSIUM CHLORIDE 20 MEQ/15 ML ORAL LIQUID. PO ONE (20:45)
--- NOTE | 2018-12-11 20:47 | PHYS DOC ---
Past Medical History Past Medical History: Anxiety, Cyclic Vomiting, Other Additional Past Medical Histor: PANIC DISORDER Past Surgical History: Cholecystectomy Alcohol Use: None Drug Use: Marijuana Adult General Chief Complaint Chief Complaint: SHORTNESS OF BREATH HPI HPI Patient is a 23 year old female who presents with abdominal pain, severe anxiety with suicidal ideation. She reports her abdominal pain is epigastric, sharp stabbing for 3 days. Reports amitriptyline as an alleviating factor, but states she cannot afford it. Educated patient that it can be found for $4 at [employer], she remains uncertain that she can afford that. Financial stressors are identified as aggravating her symptoms. She reports having suicidal thoughts that began this morning, denies any preparation or plan. [] Review of Systems Review of Systems Constitutional: Denies fever or chills [] Eyes: Blurry vision. Denies redness, or eye pain [] HENT: Denies nasal congestion or sore throat [] Respiratory: Denies cough or shortness of breath [] Cardiovascular: No additional information not addressed in HPI [] GI: Epigastric abdominal pain, nausea, vomiting. Denies bloody stools or diarrhea [] : Denies dysuria or hematuria [] Musculoskeletal: Denies back pain or joint pain [] Integument: Denies rash or skin lesions [] Neurologic: Denies headache, focal weakness or sensory changes [] Endocrine: Denies polyuria or polydipsia [] All other systems were reviewed and found to be within normal limits, except as documented in this note. Current Medications Current Medications Current Medications Medications (Trade) Dose Ordered Sig/Arnaldo Start Time Stop Time Status Last Admin Dose Admin Ketamine HCl (Ketamine) 15 mg 1X ONCE 12/11/18 22:15 12/11/18 22:16 DC 12/11/18 23:08 15 MG Lorazepam (Ativan) 2 mg 1X ONCE 12/11/18 20:00 12/11/18 20:01 DC 12/11/18 19:58 2 MG Potassium Chloride/Dextrose/ Sod Cl 1,000 ml @ 125 mls/hr 1X ONCE 12/11/18 22:30 12/12/18 06:29 12/11/18 23:07 125 MLS/HR Potassium Chloride (KCl Oral Soln) 40 meq 1X ONCE 12/11/18 20:45 12/11/18 20:46 DC 12/11/18 21:13 40 MEQ Prochlorperazine Edisylate (Compazine) 10 mg 1X ONCE 12/11/18 20:00 12/11/18 20:01 DC 12/11/18 19:57 10 MG Promethazine HCl (Phenergan Supp) 25 mg 1X ONCE 12/11/18 22:30 12/11/18 22:31 DC 12/11/18 23:07 25 MG Sumatriptan Succinate (Imitrex) 6 mg 1X ONCE 12/11/18 20:00 12/11/18 20:01 DC 12/11/18 19:57 6 MG Ziprasidone (Geodon Im) 10 mg 1X ONCE 12/11/18 21:45 12/11/18 21:46 DC 12/11/18 21:46 10 MG Allergies Allergies Allergies Coded Allergies Type Severity Reaction Last Updated Verified coconut Allergy Severe Anaphylaxis 01/22/17 Yes Physical Exam Physical Exam Constitutional: Well developed, well nourished, mild acute distress, non-toxic appearance. [] HENT: Normocephalic, atraumatic, bilateral external ears normal, oropharynx moist, no oral exudates, nose normal. [] Eyes: PERRLA, EOMI, conjunctiva normal, no discharge. [] Neck: Normal range of motion, no tenderness, supple, no stridor. [] Cardiovascular:Heart rate regular rhythm, no murmur [] Lungs & Thorax: Bilateral breath sounds clear to auscultation [] Abdomen: Bowel sounds normal, soft, epigastric tenderness, no masses, no pulsatile masses. [] Skin: Warm, dry, no erythema, no rash. [] Back: No tenderness, no CVA tenderness. [] Extremities: No tenderness, no cyanosis, no clubbing, ROM intact, no edema. [] Neurologic: Alert and oriented X 3, normal motor function, normal sensory function, no focal deficits noted. Psychomotor agitation [] Psychologic: Affect congruent with mood, judgement impaired, mood "tired of all the pain". Endorses SI with no plan or preparation. Denies auditory or visual hallucinations [] Current Patient Data Vital Signs Vital Signs Date Time Temp Pulse Resp B/P (MAP) Pulse Ox O2 Delivery O2 Flow Rate FiO2 12/11/18 23:31 104 16 145/101 (116) 98 Room Air 12/11/18 19:18 98.4 98.4 Lab Values Laboratory Tests Test 12/11/18 19:49 12/11/18 19:51 12/11/18 19:55 Urine Collection Type Unknown Urine Color Yellow Urine Clarity Clear Urine pH 7.0 Urine Specific [place] 1.020 Urine Protein Negative mg/dL (NEG-TRACE) Urine Glucose (UA) Negative mg/dL (NEG) Urine Ketones (Stick) Negative mg/dL (NEG) Urine Blood Negative (NEG) Urine Nitrite Negative (NEG) Urine Bilirubin Negative (NEG) Urine Urobilinogen Dipstick 1.0 mg/dL (0.2 mg/dL) Urine Leukocyte Esterase Negative (NEG) Urine RBC Occ /HPF (0-2) Urine WBC 5-10 /HPF (0-4) Urine Squamous Epithelial Cells Mod /LPF Urine Amorphous Sediment Present /HPF Urine Bacteria Few /HPF (0-FEW) Urine Mucus Mod /LPF Urine Opiates Screen Neg (NEG) Urine Methadone Screen Neg (NEG) Urine Barbiturates Neg (NEG) Urine Phencyclidine Screen Neg (NEG) Urine Amphetamine/Methamphetamine Neg (NEG) Urine Benzodiazepines Screen Neg (NEG) Urine Cocaine Screen Neg (NEG) Urine Cannabinoids Screen Pos (NEG) Urine Ethyl Alcohol Neg (NEG) POC Urine HCG, Qualitative Hcg negative (Negative) White Blood Count 12.1 x10^3/uL (4.0-11.0) H Red Blood Count 4.33 x10^6/uL (3.50-5.40) Hemoglobin 12.8 g/dL (12.0-15.5) Hematocrit 37.5 % (36.0-47.0) Mean Corpuscular Volume 87 fL (79-100) Mean Corpuscular Hemoglobin 30 pg (25-35) Mean Corpuscular Hemoglobin Concent 34 g/dL (31-37) Red Cell Distribution Width 14.0 % (11.5-14.5) Platelet Count 313 x10^3/uL (140-400) Neutrophils (%) (Auto) 77 % (31-73) H Lymphocytes (%) (Auto) 14 % (24-48) L Monocytes (%) (Auto) 6 % (0-9) Eosinophils (%) (Auto) 3 % (0-3) Basophils (%) (Auto) 1 % (0-3) Neutrophils # (Auto) 9.4 x10^3uL (1.8-7.7) H Lymphocytes # (Auto) 1.6 x10^3/uL (1.0-4.8) Monocytes # (Auto) 0.7 x10^3/uL (0.0-1.1) Eosinophils # (Auto) 0.3 x10^3/uL (0.0-0.7) Basophils # (Auto) 0.1 x10^3/uL (0.0-0.2) Prothrombin Time 15.3 SEC (11.7-14.0) H Prothrombin Time INR 1.2 (0.8-1.1) H Sodium Level 136 mmol/L (136-145) Potassium Level 2.9 mmol/L (3.5-5.1) *L Chloride Level 97 mmol/L (98-107) L Carbon Dioxide Level 28 mmol/L (21-32) Anion Gap 11 (6-14) Blood Urea Nitrogen 7 mg/dL (7-20) Creatinine 0.5 mg/dL (0.6-1.0) L Estimated GFR (Cockcroft-Gault) 150.3 BUN/Creatinine Ratio 14 (6-20) Glucose Level 128 mg/dL (70-99) H Calcium Level 9.0 mg/dL (8.5-10.1) Total Bilirubin 0.4 mg/dL (0.2-1.0) Aspartate Amino Transferase (AST) 21 U/L (15-37) Alanine Aminotransferase (ALT) 25 U/L (14-59) Alkaline Phosphatase 62 U/L (46-116) Total Protein 7.5 g/dL (6.4-8.2) Albumin 2.5 g/dL (3.4-5.0) L Albumin/Globulin Ratio 0.5 (1.0-1.7) L Lipase 63 U/L (73-393) L Acetaminophen Level < 2 mcg/ml (10-30) L Acetaminophen Last Dose Date Unk Acetaminophen Last Dose Time Unk Laboratory Tests 12/11/18 19:55 Laboratory Tests 12/11/18 19:55 EKG EKG [] Radiology/Procedures Radiology/Procedures [] Course & Med Decision Making Course & Med Decision Making Pt is a 23 year old female who is well known to this ER with past medical history of cyclic vomiting syndrome and panic disorder presents with recurrent symptoms of abdominal pain, nausea, vomiting, and anxiety. She requested IM pain and antianxiety medications. UDS continues to be positive for Cannibis. We discussed the importance of abstinence from marijuana as this will most likely exacerbate her symptoms which and she voices understanding. Possible abdominal migraine will treat with SQ Sumatriptan and PO Ativan. Pertinent Labs and Imaging studies reviewed. (See chart for details) Plan CMP Potassium repletion PT WAS SEEN BY PAT TEAM . we discussed this case in detail patient is endorsing some passive suicidal ideation at this time she says that she is in too much pain to be able to formulate a safety plan with the pad production team advisor Shalini. We have opted to admit her overnight for one-to-one observation as well as repletion of her potassium treatment of her symptoms with nonnarcotic pain medication, and then a repeat discussion tomorrow by the pad team to consider referral to crisis Center if she is more stable at that time. I spoke with Dr. rey FOR ADMISSION. Dragon Disclaimer Dragon Disclaimer This electronic medical record was generated, in whole or in part, using a voice recognition dictation system. Departure Departure Impression: Primary Impression: Anxiety Additional Impressions: Hypokalemia Suicidal ideation Disposition: ADMITTED INPATIENT Admitting Physician: Jessie Rey, Other Condition: STABLE Referrals: NO PCP (PCP) Problem Qualifiers JOEL OCHOA MD Dec 11, 2018 20:47
[2018-12-11] MEDS ORDERED: ZIPRASIDONE IM 20 MG VIAL. IM ONE (21:45)
[2018-12-11] MEDS ORDERED: KETAMINE HCL IN NACL, ISO-OSM 50 MG/5 ML SYRINGE IV ONE (22:15)
[2018-12-11] MEDS ORDERED: POTASSIUM CL 40MEQ D5-0.45NACL 1,000 ML IV ONE (22:30)
[2018-12-11] MEDS ORDERED: PROMETHAZINE 25 MG SUPP.RECT. PR ONE (22:30)
[2018-12-12] MEDS ORDERED: KETAMINE HCL IN NACL, ISO-OSM 50 MG/5 ML SYRINGE IV ONE (00:15)
[2018-12-12 01:10] VITALS: BP 160/104
[2018-12-12] MEDS ORDERED: ONDANSETRON PF 4 MG/2 ML VIAL. IV PRN (01:30)
[2018-12-12] MEDS: MORPHINE SULFATE 4 MG/ML VIAL. IV PRN ×4 (01:40→09:38)
[2018-12-12] MEDS: oxyCODONE/APAP 5/325 1 TAB TABLET PO PRN ×4 (01:41→15:23)
[2018-12-12 01:49] VITALS: BP 160/104
[2018-12-12 03:00] VITALS: BP 118/80
[2018-12-12 07:00] VITALS: BP 106/65
--- NOTE | 2018-12-12 08:00 | NUR ---
Assigned to care for patient in 1:1 Observation. Assessment completed. Patient is mildly anxious over missing belongings that were found at the nurses station. Otherwise, patient is calm and cooperative. Vital signs stable. Room clear and safe.
--- NOTE | 2018-12-12 08:26 | NUR ---
SW following pt for anticipated dc needs. Chart reviewed. Pt lives at home with spouse/family and on room air. No SW needs indicated at this time. SW will continue to evaluate dc needs.
[2018-12-12] MEDS ORDERED: PROCHLORPERAZINE 10 MG/2 ML VIAL. IV PRN (08:45)
[2018-12-12] MEDS ORDERED: ALPRAZolam 0.5 MG TABLET PO PRN ×2 (08:45→12:15)
--- NOTE | 2018-12-12 09:19 | NUR ---
FRANK responding to a referral regarding SI, Substance abuse, trouble accessing resources. FRANK phoned the PAT team for SI assessment and evaluation. A user experience team lead from [facility] team will come in to see pt this morning. Will continue to follow. Addendum: 12/12/18 at 1609 by SANTIAGO MARIE Pt evaluated by [facility] team and is able to be screened for RSI or f/u with OP services. Shalini reported pt is not SI and denies any plans. Spoke with pt and she reported she rather go home and f/u with [facility] mental health services. Confirmed plan with Shalini from [facility] team. Pt will dc home today and will f/u with OP services. Pt is provided resources by [facility] team. RN notified.
--- NOTE | 2018-12-12 12:19 | PDOC3 ---
Discharge Summary Visit Information Date of Admission: Dec 12, 2018 Date of Discharge: Dec 12, 2018 Admitting Diagnosis Comment: Cyclic vomiting syndrome-an attack Depression NOS Suicidal ideation-outpatient psych Critical hypokalemia secondary to vomiting and poor by mouth AK I VMN-resolved Plan: okay to leave IV out Replace potassium 601 today and 40 twice a day PO Retrial Elavil - she is willing to try again Supportive nausea meds ADA T If tolerate diet. Can go home later Signif time With her today mostly on counseling - staff at bedside to witness Final Diagnosis Problems Medical Problems: (1) Anxiety Status: Acute Brief Hospital Course Allergies Allergies Coded Allergies Type Severity Reaction Last Updated Verified coconut Allergy Severe Anaphylaxis 01/22/17 Yes Vital Signs Vital Signs Date Time Temp Pulse Resp B/P (MAP) Pulse Ox O2 Delivery O2 Flow Rate FiO2 12/12/18 11:25 14 Room Air 12/12/18 09:38 96 12/12/18 07:00 98.2 57 106/65 (79) 98.2 12/12/18 04:40 2.0 Lab Results Laboratory Tests Test 12/11/18 19:49 12/11/18 19:51 12/11/18 19:55 12/12/18 11:25 Urine Collection Type Unknown Urine Color Yellow Urine Clarity Clear Urine pH 7.0 Urine Specific [place] 1.020 Urine Protein Negative mg/dL (NEG-TRACE) Urine Glucose (UA) Negative mg/dL (NEG) Urine Ketones (Stick) Negative mg/dL (NEG) Urine Blood Negative (NEG) Urine Nitrite Negative (NEG) Urine Bilirubin Negative (NEG) Urine Urobilinogen Dipstick 1.0 mg/dL (0.2 mg/dL) Urine Leukocyte Esterase Negative (NEG) Urine RBC Occ /HPF (0-2) Urine WBC 5-10 /HPF (0-4) Urine Squamous Epithelial Cells Mod /LPF Urine Amorphous Sediment Present /HPF Urine Bacteria Few /HPF (0-FEW) Urine Mucus Mod /LPF Urine Opiates Screen Neg (NEG) Urine Methadone Screen Neg (NEG) Urine Barbiturates Neg (NEG) Urine Phencyclidine Screen Neg (NEG) Urine Amphetamine/Methamphetamine Neg (NEG) Urine Benzodiazepines Screen Neg (NEG) Urine Cocaine Screen Neg (NEG) Urine Cannabinoids Screen Pos (NEG) Urine Ethyl Alcohol Neg (NEG) Bedside Urine HCG, Qualitative Hcg negative (Negative) White Blood Count 12.1 x10^3/uL (4.0-11.0) Red Blood Count 4.33 x10^6/uL (3.50-5.40) Hemoglobin 12.8 g/dL (12.0-15.5) Hematocrit 37.5 % (36.0-47.0) Mean Corpuscular Volume 87 fL (79-100) Mean Corpuscular Hemoglobin 30 pg (25-35) Mean Corpuscular Hemoglobin Concent 34 g/dL (31-37) Red Cell Distribution Width 14.0 % (11.5-14.5) Platelet Count 313 x10^3/uL (140-400) Neutrophils (%) (Auto) 77 % (31-73) Lymphocytes (%) (Auto) 14 % (24-48) Monocytes (%) (Auto) 6 % (0-9) Eosinophils (%) (Auto) 3 % (0-3) Basophils (%) (Auto) 1 % (0-3) Neutrophils # (Auto) 9.4 x10^3uL (1.8-7.7) Lymphocytes # (Auto) 1.6 x10^3/uL (1.0-4.8) Monocytes # (Auto) 0.7 x10^3/uL (0.0-1.1) Eosinophils # (Auto) 0.3 x10^3/uL (0.0-0.7) Basophils # (Auto) 0.1 x10^3/uL (0.0-0.2) Prothrombin Time 15.3 SEC (11.7-14.0) Prothromb Time International Ratio 1.2 (0.8-1.1) Sodium Level 136 mmol/L (136-145) Potassium Level 2.9 mmol/L (3.5-5.1) 3.1 mmol/L (3.5-5.1) Chloride Level 97 mmol/L (98-107) Carbon Dioxide Level 28 mmol/L (21-32) Anion Gap 11 (6-14) Blood Urea Nitrogen 7 mg/dL (7-20) Creatinine 0.5 mg/dL (0.6-1.0) Estimated GFR (Cockcroft-Gault) 150.3 BUN/Creatinine Ratio 14 (6-20) Glucose Level 128 mg/dL (70-99) Calcium Level 9.0 mg/dL (8.5-10.1) Total Bilirubin 0.4 mg/dL (0.2-1.0) Aspartate Amino Transf (AST/SGOT) 21 U/L (15-37) Alanine Aminotransferase (ALT/SGPT) 25 U/L (14-59) Alkaline Phosphatase 62 U/L (46-116) Total Protein 7.5 g/dL (6.4-8.2) Albumin 2.5 g/dL (3.4-5.0) Albumin/Globulin Ratio 0.5 (1.0-1.7) Lipase 63 U/L (73-393) Acetaminophen Level < 2 mcg/ml (10-30) Acetaminophen Last Dose Date Unk Acetaminophen Last Dose Time Unk Laboratory Tests Test 12/11/18 19:49 12/11/18 19:51 12/11/18 19:55 12/12/18 11:25 Urine Collection Type Unknown Urine Color Yellow Urine Clarity Clear Urine pH 7.0 Urine Specific [place] 1.020 Urine Protein Negative mg/dL (NEG-TRACE) Urine Glucose (UA) Negative mg/dL (NEG) Urine Ketones (Stick) Negative mg/dL (NEG) Urine Blood Negative (NEG) Urine Nitrite Negative (NEG) Urine Bilirubin Negative (NEG) Urine Urobilinogen Dipstick 1.0 mg/dL (0.2 mg/dL) Urine Leukocyte Esterase Negative (NEG) Urine RBC Occ /HPF (0-2) Urine WBC 5-10 /HPF (0-4) Urine Squamous Epithelial Cells Mod /LPF Urine Amorphous Sediment Present /HPF Urine Bacteria Few /HPF (0-FEW) Urine Mucus Mod /LPF Urine Opiates Screen Neg (NEG) Urine Methadone Screen Neg (NEG) Urine Barbiturates Neg (NEG) Urine Phencyclidine Screen Neg (NEG) Urine Amphetamine/Methamphetamine Neg (NEG) Urine Benzodiazepines Screen Neg (NEG) Urine Cocaine Screen Neg (NEG) Urine Cannabinoids Screen Pos (NEG) Urine Ethyl Alcohol Neg (NEG) Bedside Urine HCG, Qualitative Hcg negative (Negative) White Blood Count 12.1 x10^3/uL (4.0-11.0) Red Blood Count 4.33 x10^6/uL (3.50-5.40) Hemoglobin 12.8 g/dL (12.0-15.5) Hematocrit 37.5 % (36.0-47.0) Mean Corpuscular Volume 87 fL (79-100) Mean Corpuscular Hemoglobin 30 pg (25-35) Mean Corpuscular Hemoglobin Concent 34 g/dL (31-37) Red Cell Distribution Width 14.0 % (11.5-14.5) Platelet Count 313 x10^3/uL (140-400) Neutrophils (%) (Auto) 77 % (31-73) Lymphocytes (%) (Auto) 14 % (24-48) Monocytes (%) (Auto) 6 % (0-9) Eosinophils (%) (Auto) 3 % (0-3) Basophils (%) (Auto) 1 % (0-3) Neutrophils # (Auto) 9.4 x10^3uL (1.8-7.7) Lymphocytes # (Auto) 1.6 x10^3/uL (1.0-4.8) Monocytes # (Auto) 0.7 x10^3/uL (0.0-1.1) Eosinophils # (Auto) 0.3 x10^3/uL (0.0-0.7) Basophils # (Auto) 0.1 x10^3/uL (0.0-0.2) Prothrombin Time 15.3 SEC (11.7-14.0) Prothromb Time International Ratio 1.2 (0.8-1.1) Sodium Level 136 mmol/L (136-145) Potassium Level 2.9 mmol/L (3.5-5.1) 3.1 mmol/L (3.5-5.1) Chloride Level 97 mmol/L (98-107) Carbon Dioxide Level 28 mmol/L (21-32) Anion Gap 11 (6-14) Blood Urea Nitrogen 7 mg/dL (7-20) Creatinine 0.5 mg/dL (0.6-1.0) Estimated GFR (Cockcroft-Gault) 150.3 BUN/Creatinine Ratio 14 (6-20) Glucose Level 128 mg/dL (70-99) Calcium Level 9.0 mg/dL (8.5-10.1) Total Bilirubin 0.4 mg/dL (0.2-1.0) Aspartate Amino Transf (AST/SGOT) 21 U/L (15-37) Alanine Aminotransferase (ALT/SGPT) 25 U/L (14-59) Alkaline Phosphatase 62 U/L (46-116) Total Protein 7.5 g/dL (6.4-8.2) Albumin 2.5 g/dL (3.4-5.0) Albumin/Globulin Ratio 0.5 (1.0-1.7) Lipase 63 U/L (73-393) Acetaminophen Level < 2 mcg/ml (10-30) Acetaminophen Last Dose Date Unk Acetaminophen Last Dose Time Unk Brief Hospital Course Ms. Fernandez is a 23 old [sex] who presented with [ ] 23-year-old female known to the whole hospital, cyclic vomiting syndrome, claims she has been doing it since age 1 , was previously on Elavil but thought that was not working anymore so she stopped. She is trying marijuana because she thought that helps her vomiting. She did test positive for marijuana in UDS. She is frustrated as to how the hospital is treating her i.e. we are emphasizing her marijuana UDS and not her symptoms Electrolytes 2.9 potassium with normal creatinine and after replacement is up to 3.1K. She is asking for a regular diet Some suicidal ideation but no plan and pat team has seen her twice and has recommended outpatient psychiatrist Discharge Information Condition at Discharge: Improved, Stable Disposition/Orders: D/C to Home Scheduled Famotidine (Pepcid) 20 Mg Tablet, 20 MG PO BID, #20 Prescribed by: ANGELINA MASSEY D.O. on 12/03/181538 Famotidine (Pepcid) 20 Mg Tablet, 20 MG PO BID, #14 Prescribed by: ANGELINA MASSEY D.O. on 12/09/18515 Scheduled PRN Capsaicin (Capsaicin) 60 Gm Cream..g., 1 ADAM TP TID PRN PRN for PAIN, #1 Prescribed by: ANGELINA MASSEY D.O. on 12/03/181538 Capsaicin (Capsaicin) 60 Gm Cream..g., 1 ADAM TP TID PRN PRN for PAIN, #1 Prescribed by: ANGELINA MASSEY D.O. on 12/09/18515 Lorazepam (Ativan) 0.5 Mg Tablet, 0.5 MG PO TID PRN for ANXIETY, #10 Prescribed by: ANGELINA MASSEY D.O. on 12/09/1816 Ondansetron (Ondansetron Odt) 4 Mg Tab.rapdis, 1 TAB PO PRN Q6-8HRS PRN for VOMITING, #16 Prescribed by: ANGELINA MASSEY D.O. on 12/09/18 0516 Promethazine HCl (Phenergan) 25 Mg Supp.rect, 25 MG RC Q8HRS PRN for NAUSEA/ VOMITING, #14 Prescribed by: ANGELINA MASSEY D.O. on 12/03/18 1539 GEOVANNI PENNINGTON MD Dec 12, 2018 12:19
--- NOTE | 2018-12-12 12:19 | PDOC1 ---
History and Physical Date of Admission Date of Admission DATE: 12/12/18 TIME: 12:14 Identification/Chief Complaint Chief Complaint Vomiting, abdominal pain Source Source: Caregiver, Chart review, Patient History of Present Illness History of Present Illness 23-year-old female known to the whole hospital, cyclic vomiting syndrome, claims she has been doing it since age 1 , was previously on Elavil but thought that was not working anymore so she stopped. She is trying marijuana because she thought that helps her vomiting. She did test positive for marijuana in UDS. She is frustrated as to how the hospital is treating her i.e. we are emphasizing her marijuana UDS and not her symptoms Electrolytes 2.9 potassium with normal creatinine and after replacement is up to 3.1K. She is asking for a regular diet Some suicidal ideation but no plan and pat team has seen her twice and has recommended outpatient psychiatrist Past Medical History Cardiovascular: No pertinent hx Pulmonary: No pertinent hx GI: Other Heme/Onc: No pertinent hx Psych: Anxiety, Addictions, Panic Rheumatologic: No pertinent hx Endocrine: No pertinent hx, Other Past Surgical History Past Surgical History: Cholecystectomy Family History Family History: Diabetes, Heart Disease, Other Family History: Grandparents Social History Smoke: No ALCOHOL: none Drugs: Marijuana Current Problem List Problem List Problems Medical Problems: (1) Anxiety Status: Acute Current Medications Current Medications Current Medications Sumatriptan Succinate (Imitrex) 6 mg 1X ONCE SQ Last administered on at 19:57; Start 12/11/18 at 20:00; Stop 12/11/18 at 20:01; Status DC Lorazepam (Ativan) 2 mg 1X ONCE PO Last administered on 12/11/18at 19:58; Start 12/11/18 at 20:00; Stop 12/11/18 at 20:01; Status DC Prochlorperazine Edisylate (Compazine) 10 mg 1X ONCE IM Last administered on at 19:57; Start 12/11/18 at 20:00; Stop 12/11/18 at 20:01; Status DC Potassium Chloride (KCl Oral Soln) 40 meq 1X ONCE PO Last administered on 12/11at 21:13; Start 12/11/18 at 20:45; Stop 12/11/18 at 20:46; Status DC Ziprasidone (Geodon Im) 10 mg 1X ONCE IM Last administered on 12/11/18 21:46 ; Start 12/11/18 at 21:45; Stop 12/11/18 at 21:46; Status DC Promethazine HCl (Phenergan Supp) 25 mg 1X ONCE IL Last administered on at 23:07; Start 12/11/18 at 22:30; Stop 12/11/18 at 22:31; Status DC Ketamine HCl (Ketamine) 15 mg 1X ONCE IV Last administered on 12/11/18at 23:08 ; Start 12/11/18 at 22:15; Stop 12/11/18 at 22:16; Status DC Potassium Chloride/Dextrose/ Sod Cl 1,000 ml @ 125 mls/hr 1X ONCE IV Last administered on 12/11/18at 23:07; Start 12/11/18 at 22:30; Stop 12/12/18 at 06:29 ; Status DC Ketamine HCl (Ketamine) 15 mg 1X ONCE IV Last administered on 12/12/18 00:19 ; Start 12/12/18 at 00:15; Stop 12/12/18 at 00:16; Status DC Oxycodone/ Acetaminophen (Percocet 5/325) 1 tab PRN Q4HRS PRN PO PAIN Last administered on 12/12/18 06:57; Start 12/12/18 at 01:30; Stop 12/12/18 at 08:48 ; Status DC Ondansetron HCl (Zofran) 8 mg PRN Q8HRS PRN IV NAUSEA/VOMITING Last administered on 12/12/18 01:48; Start 12/12/18 at 01:30 Lorazepam (Ativan) 1 mg PRN Q6HRS PRN IV ANXIETY / AGITATION Last administered on 12/12/18 03:10; Start 12/12/18 at 01:30; Stop 12/12/18 at 12:13; Status DC Morphine Sulfate (Morphine Sulfate) 4 mg PRN Q2HR PRN IV PAIN Last administered on 12/12/18at 09:38; Start 12/12/18 at 01:30; Stop 12/12/18 at 12:13 ; Status DC Prochlorperazine Edisylate (Compazine) 10 mg PRN Q6HRS PRN IV NAUSEA/VOMITING; Start 12/12/18 at 08:45; Stop 12/12/18 at 12:13; Status DC Alprazolam (Xanax) 0.5 mg PRN Q8HRS PRN PO ANXIETY / AGITATION Last administered on 12/12/18at 12:12; Start 12/12/18 at 08:45 Oxycodone/ Acetaminophen (Percocet 5/325) 1 tab PRN Q4HRS PRN PO PAIN Last administered on 12/12/18at 11:25; Start 12/12/18 at 08:45 Amitriptyline HCl (Elavil) 25 mg QHS PO ; Start 12/12/18 at 21:00; Status UNV Alprazolam (Xanax) 0.5 mg PRN Q8HRS PRN PO ANXIETY / AGITATION; Start 12/12/18 at 12:15; Status UNV Potassium Chloride (Klor-Con) 40 meq 1X ONCE PO ; Start 12/12/18 at 12:15; Stop 12/12/18 at 12:16; Status UNV Potassium Chloride (Klor-Con) 20 meq 1X ONCE PO ; Start 12/12/18 at 12:15; Stop 12/12/18 at 12:16; Status UNV Potassium Chloride (Klor-Con) 40 meq BID PO ; Start 12/12/18 at 21:00; Status UNV Active Scripts Active Ativan (Lorazepam) 0.5 Mg Tablet 0.5 Mg PO TID PRN Capsaicin 60 Gm Cream..g. 1 Matt TP TID PRN PRN Pepcid (Famotidine) 20 Mg Tablet 20 Mg PO BID Ondansetron Odt (Ondansetron) 4 Mg Tab.rapdis 1 Tab PO PRN Q6-8HRS PRN Capsaicin 60 Gm Cream..g. 1 Matt TP TID PRN PRN Pepcid (Famotidine) 20 Mg Tablet 20 Mg PO BID Phenergan (Promethazine HCl) 25 Mg Supp.rect 25 Mg RC Q8HRS PRN Allergies Allergies: Coded Allergies: coconut (Verified Allergy, Severe, Anaphylaxis, 01/22/17) rash, hives, throat sweeling ROS Review of System Vomiting, abdominal pain, the rest of ROS 14 point negative Physical Exam General: No acute distress, Other (teary eyed, , gets very emotional during my encounter) HEENT: Atraumatic, PERRLA Lungs: Clear to auscultation, Normal air movement Heart: S1S2, RRR, no thrills, no rubs, no gallops, no murmurs Cardiovascular: S1, S2 Breasts: Normal, Rt breast nml w/o mass, Lt breast nml w/o mass, Nipples normal Abdomen: Normal bowel sounds, Soft, No tenderness, No hepatosplenomegaly, No masses Rectal Exam: not examined PELVIC: Nml ext genitalia Extremities: No clubbing, No cyanosis, No edema, Normal pulses, No tenderness/ swelling Skin: No rashes, No breakdown, No significant lesion Neuro: Normal gait, Normal speech, Strength at 5/5 X4 ext, Normal tone, Sensation intact, Cranial nerves 3-12 NL, Reflexes 2+ Psych/Mental Status: Mental status NL, Mood NL Vitals Vitals Vital Signs Date Time Temp Pulse Resp B/P (MAP) Pulse Ox O2 Delivery O2 Flow Rate FiO2 12/12/18 11:25 14 Room Air 12/12/18 09:38 96 12/12/18 07:00 98.2 57 106/65 (79) 98.2 12/12/18 04:40 2.0 Labs Labs Laboratory Tests Test 12/11/18 19:49 12/11/18 19:51 12/11/18 19:55 12/12/18 11:25 Urine Collection Type Unknown Urine Color Yellow Urine Clarity Clear Urine pH 7.0 Urine Specific [place] 1.020 Urine Protein Negative mg/dL (NEG-TRACE) Urine Glucose (UA) Negative mg/dL (NEG) Urine Ketones (Stick) Negative mg/dL (NEG) Urine Blood Negative (NEG) Urine Nitrite Negative (NEG) Urine Bilirubin Negative (NEG) Urine Urobilinogen Dipstick 1.0 mg/dL (0.2 mg/dL) Urine Leukocyte Esterase Negative (NEG) Urine RBC Occ /HPF (0-2) Urine WBC 5-10 /HPF (0-4) Urine Squamous Epithelial Cells Mod /LPF Urine Amorphous Sediment Present /HPF Urine Bacteria Few /HPF (0-FEW) Urine Mucus Mod /LPF Urine Opiates Screen Neg (NEG) Urine Methadone Screen Neg (NEG) Urine Barbiturates Neg (NEG) Urine Phencyclidine Screen Neg (NEG) Urine Amphetamine/Methamphetamine Neg (NEG) Urine Benzodiazepines Screen Neg (NEG) Urine Cocaine Screen Neg (NEG) Urine Cannabinoids Screen Pos (NEG) Urine Ethyl Alcohol Neg (NEG) Bedside Urine HCG, Qualitative Hcg negative (Negative) White Blood Count 12.1 x10^3/uL (4.0-11.0) Red Blood Count 4.33 x10^6/uL (3.50-5.40) Hemoglobin 12.8 g/dL (12.0-15.5) Hematocrit 37.5 % (36.0-47.0) Mean Corpuscular Volume 87 fL (79-100) Mean Corpuscular Hemoglobin 30 pg (25-35) Mean Corpuscular Hemoglobin Concent 34 g/dL (31-37) Red Cell Distribution Width 14.0 % (11.5-14.5) Platelet Count 313 x10^3/uL (140-400) Neutrophils (%) (Auto) 77 % (31-73) Lymphocytes (%) (Auto) 14 % (24-48) Monocytes (%) (Auto) 6 % (0-9) Eosinophils (%) (Auto) 3 % (0-3) Basophils (%) (Auto) 1 % (0-3) Neutrophils # (Auto) 9.4 x10^3uL (1.8-7.7) Lymphocytes # (Auto) 1.6 x10^3/uL (1.0-4.8) Monocytes # (Auto) 0.7 x10^3/uL (0.0-1.1) Eosinophils # (Auto) 0.3 x10^3/uL (0.0-0.7) Basophils # (Auto) 0.1 x10^3/uL (0.0-0.2) Prothrombin Time 15.3 SEC (11.7-14.0) Prothromb Time International Ratio 1.2 (0.8-1.1) Sodium Level 136 mmol/L (136-145) Potassium Level 2.9 mmol/L (3.5-5.1) 3.1 mmol/L (3.5-5.1) Chloride Level 97 mmol/L (98-107) Carbon Dioxide Level 28 mmol/L (21-32) Anion Gap 11 (6-14) Blood Urea Nitrogen 7 mg/dL (7-20) Creatinine 0.5 mg/dL (0.6-1.0) Estimated GFR (Cockcroft-Gault) 150.3 BUN/Creatinine Ratio 14 (6-20) Glucose Level 128 mg/dL (70-99) Calcium Level 9.0 mg/dL (8.5-10.1) Total Bilirubin 0.4 mg/dL (0.2-1.0) Aspartate Amino Transf (AST/SGOT) 21 U/L (15-37) Alanine Aminotransferase (ALT/SGPT) 25 U/L (14-59) Alkaline Phosphatase 62 U/L (46-116) Total Protein 7.5 g/dL (6.4-8.2) Albumin 2.5 g/dL (3.4-5.0) Albumin/Globulin Ratio 0.5 (1.0-1.7) Lipase 63 U/L (73-393) Acetaminophen Level < 2 mcg/ml (10-30) Acetaminophen Last Dose Date Unk Acetaminophen Last Dose Time Unk Laboratory Tests Test 12/11/18 19:49 12/11/18 19:51 12/11/18 19:55 12/12/18 11:25 Urine Collection Type Unknown Urine Color Yellow Urine Clarity Clear Urine pH 7.0 Urine Specific [place] 1.020 Urine Protein Negative mg/dL (NEG-TRACE) Urine Glucose (UA) Negative mg/dL (NEG) Urine Ketones (Stick) Negative mg/dL (NEG) Urine Blood Negative (NEG) Urine Nitrite Negative (NEG) Urine Bilirubin Negative (NEG) Urine Urobilinogen Dipstick 1.0 mg/dL (0.2 mg/dL) Urine Leukocyte Esterase Negative (NEG) Urine RBC Occ /HPF (0-2) Urine WBC 5-10 /HPF (0-4) Urine Squamous Epithelial Cells Mod /LPF Urine Amorphous Sediment Present /HPF Urine Bacteria Few /HPF (0-FEW) Urine Mucus Mod /LPF Urine Opiates Screen Neg (NEG) Urine Methadone Screen Neg (NEG) Urine Barbiturates Neg (NEG) Urine Phencyclidine Screen Neg (NEG) Urine Amphetamine/Methamphetamine Neg (NEG) Urine Benzodiazepines Screen Neg (NEG) Urine Cocaine Screen Neg (NEG) Urine Cannabinoids Screen Pos (NEG) Urine Ethyl Alcohol Neg (NEG) Bedside Urine HCG, Qualitative Hcg negative (Negative) White Blood Count 12.1 x10^3/uL (4.0-11.0) Red Blood Count 4.33 x10^6/uL (3.50-5.40) Hemoglobin 12.8 g/dL (12.0-15.5) Hematocrit 37.5 % (36.0-47.0) Mean Corpuscular Volume 87 fL (79-100) Mean Corpuscular Hemoglobin 30 pg (25-35) Mean Corpuscular Hemoglobin Concent 34 g/dL (31-37) Red Cell Distribution Width 14.0 % (11.5-14.5) Platelet Count 313 x10^3/uL (140-400) Neutrophils (%) (Auto) 77 % (31-73) Lymphocytes (%) (Auto) 14 % (24-48) Monocytes (%) (Auto) 6 % (0-9) Eosinophils (%) (Auto) 3 % (0-3) Basophils (%) (Auto) 1 % (0-3) Neutrophils # (Auto) 9.4 x10^3uL (1.8-7.7) Lymphocytes # (Auto) 1.6 x10^3/uL (1.0-4.8) Monocytes # (Auto) 0.7 x10^3/uL (0.0-1.1) Eosinophils # (Auto) 0.3 x10^3/uL (0.0-0.7) Basophils # (Auto) 0.1 x10^3/uL (0.0-0.2) Prothrombin Time 15.3 SEC (11.7-14.0) Prothromb Time International Ratio 1.2 (0.8-1.1) Sodium Level 136 mmol/L (136-145) Potassium Level 2.9 mmol/L (3.5-5.1) 3.1 mmol/L (3.5-5.1) Chloride Level 97 mmol/L (98-107) Carbon Dioxide Level 28 mmol/L (21-32) Anion Gap 11 (6-14) Blood Urea Nitrogen 7 mg/dL (7-20) Creatinine 0.5 mg/dL (0.6-1.0) Estimated GFR (Cockcroft-Gault) 150.3 BUN/Creatinine Ratio 14 (6-20) Glucose Level 128 mg/dL (70-99) Calcium Level 9.0 mg/dL (8.5-10.1) Total Bilirubin 0.4 mg/dL (0.2-1.0) Aspartate Amino Transf (AST/SGOT) 21 U/L (15-37) Alanine Aminotransferase (ALT/SGPT) 25 U/L (14-59) Alkaline Phosphatase 62 U/L (46-116) Total Protein 7.5 g/dL (6.4-8.2) Albumin 2.5 g/dL (3.4-5.0) Albumin/Globulin Ratio 0.5 (1.0-1.7) Lipase 63 U/L (73-393) Acetaminophen Level < 2 mcg/ml (10-30) Acetaminophen Last Dose Date Unk Acetaminophen Last Dose Time Unk VTE Prophylaxis Ordered VTE Prophylaxis Devices: Yes VTE Pharmacological Prophylaxi: Yes Assessment/Plan Assessment/Plan Cyclic vomiting syndrome-an attack Depression NOS Suicidal ideation-outpatient psych Critical hypokalemia secondary to vomiting and poor by mouth AK I VMN-resolved Plan: okay to leave IV out Replace potassium 601 today and 40 twice a day PO Retrial Elavil - she is willing to try again Supportive nausea meds ADA T If tolerate diet. Can go home later Signif time With her today mostly on counseling - staff at bedside to witness GEOVANNI PENNINGTON MD Dec 12, 2018 12:18
[2018-12-12] MEDS ORDERED: OXYC1TAB15 PO (12:22)
[2018-12-12] MEDS ORDERED: METO10TA81 PO (12:22)
[2018-12-12] MEDS ORDERED: POTA20TA4 PO (12:22)
[2018-12-12] MEDS ORDERED: ONDA4TAB12 PO (12:22)
[2018-12-12] MEDS ORDERED: LORA0.5T96 PO (12:22)
[2018-12-12] MEDS ORDERED: AMIT25TA PO (12:22)
[2018-12-12] MEDS ORDERED: POTASSIUM CHLORIDE 20 MEQ TABLET.ER. PO ONE ×2 (12:30)
[2018-12-12 15:00] VITALS: BP 109/64
--- NOTE | 2018-12-12 18:39 | NUR ---
Discharge Note: JESSICA GONZÁLES LARCHWOOD Discharge instructions and discharge home medications reviewed with Patient and a copy given. All questions have been answered and understanding verbalized. The following instructions and handouts were given: hypokalemia Discontinued lines and drains: Peripheral IV intact. Patient discharged to Home or Self Care with Family Member via Amb[facility]
[2018-12-12] MEDS ORDERED: AMITRIPTYLINE HCL 25 MG TABLET. PO SCH (21:00)
[2018-12-12] MEDS ORDERED: POTASSIUM CHLORIDE 20 MEQ TABLET.ER. PO SCH (21:00)
== END 2018-12-12 18:41 | disposition home or self-care (01) ==
LOC: ER 18:57 → 5 NORTH 12-12 01:13
PROVIDERS: ADMIT Internal Medicine; ATTEND Internal Medicine
DX: G43.A0 Cyclical vomiting, in migraine, not intractable (principal); F32.9 Major depressive disorder, single episode, unspecified; E87.6 Hypokalemia; R45.851 Suicidal ideations; F41.0 Panic disorder [episodic paroxysmal anxiety]; N17.0 Acute kidney failure with tubular necrosis; F41.9 Anxiety disorder, unspecified; Z79.899 Other long term (current) drug therapy; Z83.3 Family history of diabetes mellitus
CPT/HCPCS: 87086; 96365; 96366; 96372; 96375; 96376; 99284; G0378; J0780; J2060; J2270; J2405; J3030; J3486; J7042; 36415; 80053; 80307; 80329; 81001; 81025; 83690; 84132; 85025; 85610; G0379; G0480

== ENCOUNTER 2018-12-13 06:17 | Emergency (ER) | payer BC ==
[~2018-12-13] VITALS: Ht 162.6 cm; Wt 61.2 kg
[~2018-12-13 06:17] MED LIST changes: +OXYC1TAB15 PO; +POTA20TA4 PO
[2018-12-13] MEDS ORDERED: IV NORMAL SALINE 1000ML BAG 1,000 ML IV ONE ×2 (06:45→07:00)
[2018-12-13] MEDS ORDERED: ONDANSETRON PF 4 MG/2 ML VIAL. IV ONE (07:00)
[2018-12-13 07:01] LABS: BILIRUBIN,URINE NEGATIVE (NEG); CLARITY,URINE CLEAR; COLOR,URINE YELLOW; NITRITE,URINE NEGATIVE (NEG); PROTEIN,URINE NEGATIVE (NEG-TRACE); UROBILINOGEN,URINE 0.2 mg/dL (0.2 mg/dL)
[2018-12-13 07:08] LABS: AMPHETAMINE/METHAMPHETAMINE NEG (NEG); BARBITURATES NEG (NEG); BENZODIAZEPINES POS (NEG); CANNABINOIDS POS (NEG); COCAINE NEG (NEG); METHADONE NEG (NEG); OPIATES POS (NEG); PHENCYCLIDINE NEG (NEG)
[2018-12-13 07:11] LABS: BASO # 0.1 x10^3/uL (0.0-0.2); BASO % 1 % (0-3); EOS # 0.3 x10^3/uL (0.0-0.7); EOS % 3 % (0-3); HEMATOCRIT 40.6 % (36.0-47.0); HEMOGLOBIN 13.4 g/dL (12.0-15.5); LYMPH # 2.4 x10^3/uL (1.0-4.8); LYMPH % 24 % (24-48); MEAN CORPUSCULAR HEMOGLOBIN 29 pg (25-35); MEAN CORPUSCULAR HGB CONC 33 g/dL (31-37); MEAN CORPUSCULAR VOLUME 87 fL (79-100); MONO # 0.6 x10^3/uL (0.0-1.1); MONO % 6 % (0-9); NEUT # 6.7 x10^3uL (1.8-7.7); NEUT % 66 % (31-73); PLATELET COUNT 395 x10^3/uL (140-400); RED BLOOD COUNT 4.65 x10^6/uL (3.50-5.40); WHITE BLOOD COUNT 10.1 x10^3/uL (4.0-11.0)
[2018-12-13] MEDS ORDERED: HALOPERIDOL LACTATE 5 MG/ML VIAL. IVP ONE (07:45)
[2018-12-13] MEDS ORDERED: PROCHLORPERAZINE 10 MG/2 ML VIAL. IV ONE (07:45)
[2018-12-13 08:05] LABS: CALCIUM 9.2 mg/dL (8.5-10.1); CREATININE 0.6 mg/dL (0.6-1.0); GFR 121.8
[2018-12-13 08:10] LABS: ALBUMIN 2.8 g/dL (3.4-5.0); ALBUMIN/GLOBULIN RATIO 0.6 (1.0-1.7); MAGNESIUM 2.1 mg/dL (1.8-2.4); TOTAL BILIRUBIN 0.4 mg/dL (0.2-1.0); TOTAL PROTEIN 7.8 g/dL (6.4-8.2)
[2018-12-13 08:10] LABS: SQUAMOUS EPITHELIAL CELL,UR MOD /LPF
[2018-12-13 08:11] LABS: BACTERIA,URINE MOD /HPF (0-FEW)
[2018-12-13 08:11] LABS: ACETAMIN < 2 mcg/ml (10-30); ETHANOL < 10 mg/dL (0-10); POTASSIUM 4.5 mmol/L (3.5-5.1); SALIC < 2.8 mg/dL (2.8-20.0)
--- NOTE | 2018-12-13 09:09 | PHYS DOC ---
Past Medical History Past Medical History: Anxiety, Cyclic Vomiting, Other Additional Past Medical Histor: PANIC DISORDER Past Surgical History: Cholecystectomy Alcohol Use: None Drug Use: Marijuana Adult General Chief Complaint Chief Complaint: SUICDAL IDEATION HPI HPI Patient is a 23 year old female with a history of cyclic vomiting syndrome, presented to ER today for no nausea vomiting, abdominal cramping. Patient is well-known to this physician and this hospital. Patient was just discharged from here on the of this month for the same problem. Patient had been in and out of the hospital here numerous time for the same complaint. Patient says she wanted to because of her chronic condition. She says she wanted to get a gun and shoot HERSELF ON THE FACE SO SHE WILL NOT DEAL WITH HER CYCLIC VOMITING SYNDROME ANYMORE. She said while she was in the hospital, she was suicidal as well. Patient says she was evaluated by psychiatry SHE WAS in the hospital. Patient was set up to see a counselor as [facility] today. However because of the nausea vomiting she came in here instead Review of Systems Review of Systems Constitutional: Denies fever or chills [] Eyes: Denies change in visual acuity, redness, or eye pain [] HENT: Denies nasal congestion or sore throat [] Respiratory: Denies cough or shortness of breath [] Cardiovascular: No additional information not addressed in HPI [] GI: Positive for abdominal pain, nausea, vomiting, NO bloody stools or diarrhea [] : Denies dysuria or hematuria [] Musculoskeletal: Denies back pain or joint pain [] Integument: Denies rash or skin lesions [] Neurologic: Denies headache, focal weakness or sensory changes [] Endocrine: Denies polyuria or polydipsia Psych: positive for anxiety, depression, suicidal ideation. All other systems were reviewed and found to be within normal limits, except as documented in this note. Current Medications Current Medications Current Medications Medications (Trade) Dose Ordered Sig/Arnaldo Start Time Stop Time Status Last Admin Dose Admin Haloperidol Lactate (Haldol Inj) 5 mg 1X ONCE 12/13/18 07:45 12/13/18 07:46 DC 12/13/18 07:56 5 MG Lorazepam (Ativan) 2 mg 1X ONCE 12/13/18 07:45 12/13/18 07:46 DC 12/13/18 07:57 2 MG Ondansetron HCl (Zofran) 8 mg 1X ONCE 12/13/18 07:00 12/13/18 07:01 DC 12/13/18 07:21 8 MG Prochlorperazine Edisylate (Compazine) 10 mg 1X ONCE 12/13/18 07:45 12/13/18 07:46 DC 12/13/18 07:56 10 MG Sodium Chloride 1,000 ml @ 1,000 mls/hr 1X ONCE 12/13/18 07:00 12/13/18 07:59 DC 12/13/18 06:50 1,000 MLS/HR Allergies Allergies Allergies Coded Allergies Type Severity Reaction Last Updated Verified coconut Allergy Severe Anaphylaxis 01/22/17 Yes Physical Exam Physical Exam Constitutional: Well developed, well nourished, Actively dry heaving. , non- toxic appearance. [] HENT: Normocephalic, atraumatic, bilateral external ears normal, oropharynx moist, no oral exudates, nose normal. [] Eyes: PERRLA, EOMI, conjunctiva normal, no discharge. [] Neck: Normal range of motion, no tenderness, supple, no stridor. [] Cardiovascular:Heart rate regular rhythm, no murmur [] Lungs & Thorax: Bilateral breath sounds clear to auscultation [] Abdomen: Bowel sounds normal, soft, no tenderness, no masses, no pulsatile masses. [] Skin: Warm, dry, no erythema, no rash. [] Back: No tenderness, no CVA tenderness. [] Extremities: No tenderness, no cyanosis, no clubbing, ROM intact, no edema. [] Neurologic: Alert and oriented X 3, normal motor function, normal sensory function, no focal deficits noted. [] Psychologic: APPEARED VERY ANXIOUS, SUICIDAL IDEATION. Current Patient Data Vital Signs Vital Signs Date Time Temp Pulse Resp B/P (MAP) Pulse Ox O2 Delivery O2 Flow Rate FiO2 12/13/18 10:30 82 20 125/63 (83) 96 12/13/18 06:17 98.3 Room Air 98.3 Lab Values Laboratory Tests Test 12/13/18 06:23 12/13/18 06:45 12/13/18 06:47 12/13/18 07:43 Urine Collection Type Unknown Urine Color Yellow Urine Clarity Clear Urine pH 7.0 Urine Specific [place] 1.015 Urine Protein Negative mg/dL (NEG-TRACE) Urine Glucose (UA) Negative mg/dL (NEG) Urine Ketones (Stick) Negative mg/dL (NEG) Urine Blood Large (NEG) Urine Nitrite Negative (NEG) Urine Bilirubin Negative (NEG) Urine Urobilinogen Dipstick 0.2 mg/dL (0.2 mg/dL) Urine Leukocyte Esterase Trace (NEG) Urine RBC 3-5 /HPF (0-2) Urine WBC 5-10 /HPF (0-4) Urine Squamous Epithelial Cells Mod /LPF Urine Bacteria Mod /HPF (0-FEW) Urine Opiates Screen Pos (NEG) Urine Methadone Screen Neg (NEG) Urine Barbiturates Neg (NEG) Urine Phencyclidine Screen Neg (NEG) Urine Amphetamine/Methamphetamine Neg (NEG) Urine Benzodiazepines Screen Pos (NEG) Urine Cocaine Screen Neg (NEG) Urine Cannabinoids Screen Pos (NEG) Urine Ethyl Alcohol Neg (NEG) White Blood Count 10.1 x10^3/uL (4.0-11.0) Red Blood Count 4.65 x10^6/uL (3.50-5.40) Hemoglobin 13.4 g/dL (12.0-15.5) Hematocrit 40.6 % (36.0-47.0) Mean Corpuscular Volume 87 fL (79-100) Mean Corpuscular Hemoglobin 29 pg (25-35) Mean Corpuscular Hemoglobin Concent 33 g/dL (31-37) Red Cell Distribution Width 14.0 % (11.5-14.5) Platelet Count 395 x10^3/uL (140-400) Neutrophils (%) (Auto) 66 % (31-73) Lymphocytes (%) (Auto) 24 % (24-48) Monocytes (%) (Auto) 6 % (0-9) Eosinophils (%) (Auto) 3 % (0-3) Basophils (%) (Auto) 1 % (0-3) Neutrophils # (Auto) 6.7 x10^3uL (1.8-7.7) Lymphocytes # (Auto) 2.4 x10^3/uL (1.0-4.8) Monocytes # (Auto) 0.6 x10^3/uL (0.0-1.1) Eosinophils # (Auto) 0.3 x10^3/uL (0.0-0.7) Basophils # (Auto) 0.1 x10^3/uL (0.0-0.2) POC Urine HCG, Qualitative Hcg negative (Negative) Sodium Level 137 mmol/L (136-145) Potassium Level 4.5 mmol/L (3.5-5.1) # Chloride Level 100 mmol/L (98-107) Carbon Dioxide Level 27 mmol/L (21-32) Anion Gap 10 (6-14) Blood Urea Nitrogen 6 mg/dL (7-20) L Creatinine 0.6 mg/dL (0.6-1.0) Estimated GFR (Cockcroft-Gault) 121.8 BUN/Creatinine Ratio 10 (6-20) Glucose Level 98 mg/dL (70-99) Calcium Level 9.2 mg/dL (8.5-10.1) Magnesium Level 2.1 mg/dL (1.8-2.4) Total Bilirubin 0.4 mg/dL (0.2-1.0) Aspartate Amino Transferase (AST) 18 U/L (15-37) Alanine Aminotransferase (ALT) 21 U/L (14-59) Alkaline Phosphatase 59 U/L (46-116) Total Protein 7.8 g/dL (6.4-8.2) Albumin 2.8 g/dL (3.4-5.0) L Albumin/Globulin Ratio 0.6 (1.0-1.7) L Lipase 49 U/L (73-393) L Thyroid Stimulating Hormone (TSH) 0.738 uIU/mL (0.358-3.74) Salicylates Level < 2.8 mg/dL (2.8-20.0) L Salicylate Last Dose Date Unknown Salicylate Last Dose Time Unknown Acetaminophen Level < 2 mcg/ml (10-30) L Acetaminophen Last Dose Date Unknown Acetaminophen Last Dose Time Unknown Ethyl Alcohol Level < 10 mg/dL (0-10) Laboratory Tests 12/13/18 06:45 Laboratory Tests 12/13/18 07:43 EKG EKG [] Radiology/Procedures Radiology/Procedures [] Course & Med Decision Making Course & Med Decision Making Pertinent Labs and Imaging studies reviewed. (See chart for details) Patient was evaluated by PAT TEAM, DENIED SUICIDAL IDEATION OR HOMICIDAL AT THIS TIME. PATIENT AGREED TO GO TO [facility] for crisis intervention. Patient denied SI OR HI TO THIS PHYSICIAN AT THIS TIME. Dragon Disclaimer Dragon Disclaimer This electronic medical record was generated, in whole or in part, using a voice recognition dictation system. Departure Departure Impression: Primary Impression: Cyclic vomiting syndrome Additional Impression: Anxiety Disposition: 01 HOME, SELF-CARE Condition: IMPROVED Referrals: NO PCP (PCP) Patient will be discharged from the ER. Patient will be taken by hospital van to [facility] for crisis intervision today. Patient Instructions: Anxiety and Panic Attacks, Cyclic Vomiting Syndrome Problem Qualifiers BIENVENIDO RAMIREZ DO Dec 13, 2018 09:09
[2018-12-13 10:30] VITALS: BP 125/63
== END 2018-12-13 11:00 | disposition home or self-care (01) ==
LOC: ER 06:17
DX: G43.A0 Cyclical vomiting, in migraine, not intractable (principal); F41.9 Anxiety disorder, unspecified; R45.851 Suicidal ideations; F32.9 Major depressive disorder, single episode, unspecified; Z90.49 Acquired absence of other specified parts of digestive tract; Z91.018 Allergy to other foods
CPT/HCPCS: 36415; 80053; 80307; 80329; 81001; 81025; 83690; 83735; 84443; 85025; 96361; 96374; 96375; 99283; G0480; J0780; J1630; J2060; J2405; J7030

== ENCOUNTER 2018-12-13 11:52 | Inpatient (IN) | payer BC ==
[~2018-12-13] VITALS: Ht 162.6 cm; Wt 72.3 kg
[2018-12-13] MEDS ORDERED: KETAMINE HCL IN NACL, ISO-OSM 50 MG/5 ML SYRINGE IM ONE (12:45)
[2018-12-13] MEDS ORDERED: KETOROLAC 60 MG/2 ML VIAL. IM ONE (12:45)
--- NOTE | 2018-12-13 12:49 | RAD ---
EXAM: Abdomen acute complete. HISTORY: Pain. COMPARISON: 08/20/2018 FINDINGS: A frontal view the chest and frontal upright and supine views of the abdomen are obtained. There is diffuse central predominant bilateral mixed interstitial and alveolar infiltrate. There is no pleural effusion or pneumothorax. The heart is normal in size. There are nondistended air-filled loops of bowel within the abdomen. There is no free air. There is a there are few nonspecific air-fluid levels within loops of bowel within the midabdomen and left lower quadrant. There are cholecystectomy clips. There is an IUD overlying the right hemipelvis. 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 IMPRESSION: 1. Diffuse central predominant bilateral interstitial and alveolar infiltrate. Follow-up to confirm resolution. 2. Nonspecific bowel gas pattern, without evidence of obstruction. Electronically signed by: Salma Hansen MD (12/13/2018 12:46 PM) [id number]
[2018-12-13] MEDS ORDERED: PIPERACILLIN/TAZOBACTAM 3.375 GM in IV NORMAL SALINE 50ML 50 ML IV ONE (13:00)
--- NOTE | 2018-12-13 13:14 | PHYS DOC ---
Past Medical History Past Medical History: Anxiety, Cyclic Vomiting, Other Additional Past Medical Histor: PANIC DISORDER Past Surgical History: Cholecystectomy Alcohol Use: None Drug Use: Marijuana Adult General Chief Complaint Chief Complaint: ABDOMINAL PAIN HPI HPI Patient is a 23 year old female who is well-known to this physician and to this hospital, presented back to ER for evaluation of abdominal pain, nausea vomiting, trouble breathing, cough. Patient was just seen here in the ER for suicidal ideation. Patient was cleared to go TO [facility]. However when she got there , she refused to talk to them during the interview process because she continued have abdominal pain so she was sent back here for evaluation. Patient was just admitted to this hospital for abdominal pain, and suicidal ideation. Patient was just discharged home yesterday. This physician ACTUALLY saw her this morning as well, lab work was normal. There was no x-ray done. Patient is still suicidal. She says she had flask back of seeing her SHOOTING HERSELF ON THE FACE WITH A GUN because she is so depressed and sick of living WITH HER CHRONIC ABDOMINAL PAIN. Review of Systems Review of Systems Constitutional: Denies fever or chills [] Eyes: Denies change in visual acuity, redness, or eye pain [] HENT: Denies nasal congestion or sore throat [] Respiratory: positive for cough and shortness of breath [] Cardiovascular: No additional information not addressed in HPI [] GI: positive for abdominal pain, nausea, vomiting , NO bloody stools or diarrhea [] : Denies dysuria or hematuria [] Musculoskeletal: Denies back pain or joint pain [] Integument: Denies rash or skin lesions [] Neurologic: Denies headache, focal weakness or sensory changes [] Endocrine: Denies polyuria or polydipsia [] All other systems were reviewed and found to be within normal limits, except as documented in this note. Current Medications Current Medications Current Medications Medications (Trade) Dose Ordered Sig/Arnaldo Start Time Stop Time Status Last Admin Dose Admin Ketamine HCl (Ketamine) 25 mg 1X ONCE 12/13/18 12:45 12/13/18 12:46 DC 12/13/18 12:54 25 MG Ketorolac Tromethamine (Toradol Im) 60 mg 1X ONCE 12/13/18 12:45 12/13/18 12:46 DC 12/13/18 12:54 60 MG Levofloxacin/ Dextrose 150 ml @ 100 mls/hr Q24H 12/13/18 13:00 12/13/18 14:18 100 MLS/HR Levofloxacin/ Dextrose (Levaquin Per Pharmacy) 1 each PRN DAILY PRN 12/13/18 13:15 Ondansetron HCl (Zofran) 4 mg PRN Q8HRS PRN 12/13/18 13:15 12/14/18 13:14 Piperacillin Sod/ Tazobactam Sod 3.375 gm/Sodium Chloride 50 ml @ 100 mls/hr 1X ONCE 12/13/18 13:00 12/13/18 13:29 DC 12/13/18 13:36 100 MLS/HR Sodium Chloride 1,000 ml @ 100 mls/hr Q10H 12/13/18 13:11 12/14/18 13:10 12/13/18 15:41 100 MLS/HR Vancomycin HCl (Vanco Per Pharmacy) 1 each PRN DAILY PRN 12/13/18 13:15 12/13/18 16:11 1 EACH Vancomycin HCl 1.75 gm/Sodium Chloride 500 ml @ 250 mls/hr 1X ONCE 12/13/18 14:00 12/13/18 15:59 DC 12/13/18 15:51 250 MLS/HR Allergies Allergies Allergies Coded Allergies Type Severity Reaction Last Updated Verified coconut Allergy Severe Anaphylaxis 01/22/17 Yes Physical Exam Physical Exam Constitutional: Well developed, well nourished, no acute distress, non-toxic appearance. [] HENT: Normocephalic, atraumatic, bilateral external ears normal, oropharynx moist, no oral exudates, nose normal. [] Eyes: PERRLA, EOMI, conjunctiva normal, no discharge. [] Neck: Normal range of motion, no tenderness, supple, no stridor. [] Cardiovascular:Heart rate regular rhythm, no murmur [] Lungs & Thorax: crackles in both mid lung morales. Abdomen: Bowel sounds normal, soft, no tenderness, no masses, no pulsatile masses. [] Skin: Warm, dry, no erythema, no rash. [] Back: No tenderness, no CVA tenderness. [] Extremities: No tenderness, no cyanosis, no clubbing, ROM intact, no edema. [] Neurologic: Alert and oriented X 3, normal motor function, normal sensory function, no focal deficits noted. [] Psychologic: SI, NO HI. Current Patient Data Vital Signs Vital Signs Date Time Temp Pulse Resp B/P (MAP) Pulse Ox O2 Delivery O2 Flow Rate FiO2 12/13/18 14:30 92 16 111/63 (79) 97 Room Air 12/13/18 12:05 97.7 97.7 Lab Values Laboratory Tests Test 12/13/18 12:42 12/13/18 13:18 12/13/18 13:19 Urine Collection Type Unknown Urine Color Yellow Urine Clarity Cloudy Urine pH 7.5 Urine Specific [place] <=1.005 Urine Protein Negative mg/dL (NEG-TRACE) Urine Glucose (UA) Negative mg/dL (NEG) Urine Ketones (Stick) Negative mg/dL (NEG) Urine Blood Moderate (NEG) Urine Nitrite Negative (NEG) Urine Bilirubin Negative (NEG) Urine Urobilinogen Dipstick 0.2 mg/dL (0.2 mg/dL) Urine Leukocyte Esterase Negative (NEG) Urine RBC 0 /HPF (0-2) Urine WBC 0 /HPF (0-4) Urine Squamous Epithelial Cells Many /LPF Urine Bacteria Moderate /HPF (0-FEW) Influenza Type A Antigen Negative (NEGATIVE) Influenza Type B Antigen Negative (NEGATIVE) White Blood Count 9.7 x10^3/uL (4.0-11.0) Red Blood Count 4.35 x10^6/uL (3.50-5.40) Hemoglobin 12.5 g/dL (12.0-15.5) Hematocrit 37.5 % (36.0-47.0) Mean Corpuscular Volume 86 fL (79-100) Mean Corpuscular Hemoglobin 29 pg (25-35) Mean Corpuscular Hemoglobin Concent 34 g/dL (31-37) Red Cell Distribution Width 14.2 % (11.5-14.5) Platelet Count 345 x10^3/uL (140-400) Neutrophils (%) (Auto) 78 % (31-73) H Lymphocytes (%) (Auto) 14 % (24-48) L Monocytes (%) (Auto) 5 % (0-9) Eosinophils (%) (Auto) 2 % (0-3) Basophils (%) (Auto) 1 % (0-3) Neutrophils # (Auto) 7.6 x10^3uL (1.8-7.7) Lymphocytes # (Auto) 1.4 x10^3/uL (1.0-4.8) Monocytes # (Auto) 0.5 x10^3/uL (0.0-1.1) Eosinophils # (Auto) 0.2 x10^3/uL (0.0-0.7) Basophils # (Auto) 0.1 x10^3/uL (0.0-0.2) Sodium Level 137 mmol/L (136-145) Potassium Level 4.2 mmol/L (3.5-5.1) Chloride Level 101 mmol/L (98-107) Carbon Dioxide Level 29 mmol/L (21-32) Anion Gap 7 (6-14) Blood Urea Nitrogen 4 mg/dL (7-20) L Creatinine 0.5 mg/dL (0.6-1.0) L Estimated GFR (Cockcroft-Gault) 150.3 BUN/Creatinine Ratio 8 (6-20) Glucose Level 99 mg/dL (70-99) Lactic Acid Level 1.0 mmol/L (0.4-2.0) Calcium Level 8.7 mg/dL (8.5-10.1) Total Bilirubin 0.3 mg/dL (0.2-1.0) Aspartate Amino Transferase (AST) 18 U/L (15-37) Alanine Aminotransferase (ALT) 22 U/L (14-59) Alkaline Phosphatase 55 U/L (46-116) Total Protein 6.9 g/dL (6.4-8.2) Albumin 2.5 g/dL (3.4-5.0) L Albumin/Globulin Ratio 0.6 (1.0-1.7) L Lipase 73 U/L (73-393) Laboratory Tests 12/13/18 13:19 Laboratory Tests 12/13/18 13:19 EKG EKG [] Radiology/Procedures Radiology/Procedures [][facility] [address] [place] [address] IMAGING REPORT Signed PATIENT: BILL GONZÁLES ACCOUNT: [id number] : 1995 LOCATION: ER AGE: 23 SEX: F EXAM STATUS: REG ER ORD. PHYSICIAN: BIENVENIDO RAMIREZ DO REASON: NAUSEA, VOMITING, ABDOMINAL PAIN PROCEDURE: ACUTE ABDOMEN SERIES EXAM: Abdomen acute complete. HISTORY: Pain. COMPARISON: 08/20/2018 FINDINGS: A frontal view the chest and frontal upright and supine views of the abdomen are obtained. There is diffuse central predominant bilateral mixed interstitial and alveolar infiltrate. There is no pleural effusion or pneumothorax. The heart is normal in size. There are nondistended air-filled loops of bowel within the abdomen. There is no free air. There is a there are few nonspecific air-fluid levels within loops of bowel within the midabdomen and left lower quadrant. There are cholecystectomy clips. There is an IUD overlying the right hemipelvis. 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 IMPRESSION: 1. Diffuse central predominant bilateral interstitial and alveolar infiltrate. Follow-up to confirm resolution. 2. Nonspecific bowel gas pattern, without evidence of obstruction. Electronically signed by: Salma Spencer MD (12/13/2018 12:46 PM) [facility] DICTATED and SIGNED BY: SALMA SPENCER MD DATE: 12/13/18 1244 Course & Med Decision Making Course & Med Decision Making Pertinent Labs and Imaging studies reviewed. (See chart for details) [] Dragon Disclaimer Dragon Disclaimer This electronic medical record was generated, in whole or in part, using a voice recognition dictation system. Departure Departure Impression: Primary Impression: HCAP (healthcare-associated pneumonia) Additional Impressions: Cyclic vomiting syndrome Suicidal ideation Disposition: ADMITTED INPATIENT Admitting Physician: Cuco Jim Condition: STABLE Referrals: NO PCP (PCP) Problem Qualifiers BIENVENIDO RAMIREZ DO Dec 13, 2018 13:14
[2018-12-13] MEDS ORDERED: ONDANSETRON PF 4 MG/2 ML VIAL. IV PRN (13:15)
[2018-12-13] MEDS ORDERED: IV NORMAL SALINE 1000ML BAG 1,000 ML IV ONE (13:15)
[2018-12-13] MEDS ORDERED: levOFLOXacin PER PHARMACY. MC PRN (13:15)
[2018-12-13] MEDS ORDERED: VANCOMYCIN PER PHARMACY MC PRN (13:15)
[2018-12-13 13:18] LABS: BILIRUBIN,URINE NEGATIVE (NEG); CLARITY,URINE CLOUDY; COLOR,URINE YELLOW; NITRITE,URINE NEGATIVE (NEG); PH,URINE 7.5; PROTEIN,URINE NEGATIVE (NEG-TRACE); UROBILINOGEN,URINE 0.2 mg/dL (0.2 mg/dL)
[2018-12-13 13:32] LABS: BASO # 0.1 x10^3/uL (0.0-0.2); BASO % 1 % (0-3); EOS # 0.2 x10^3/uL (0.0-0.7); EOS % 2 % (0-3); HEMATOCRIT 37.5 % (36.0-47.0); HEMOGLOBIN 12.5 g/dL (12.0-15.5); LYMPH # 1.4 x10^3/uL (1.0-4.8); LYMPH % 14 % (24-48); MEAN CORPUSCULAR HEMOGLOBIN 29 pg (25-35); MEAN CORPUSCULAR HGB CONC 34 g/dL (31-37); MEAN CORPUSCULAR VOLUME 86 fL (79-100); MONO # 0.5 x10^3/uL (0.0-1.1); MONO % 5 % (0-9); NEUT # 7.6 x10^3uL (1.8-7.7); NEUT % 78 % (31-73); PLATELET COUNT 345 x10^3/uL (140-400); RED BLOOD COUNT 4.35 x10^6/uL (3.50-5.40); RED CELL DISTRIBUTION WIDTH 14.2 % (11.5-14.5); WHITE BLOOD COUNT 9.7 x10^3/uL (4.0-11.0)
[2018-12-13 13:41] LABS: CALCIUM 8.7 mg/dL (8.5-10.1); CREATININE 0.5 mg/dL (0.6-1.0); GFR 150.3; POTASSIUM 4.2 mmol/L (3.5-5.1)
[2018-12-13 13:44] LABS: BACTERIA,URINE MODERATE /HPF (0-FEW); RBC,URINE 0 /HPF (0-2); SQUAMOUS EPITHELIAL CELL,UR MANY /LPF; WBC,URINE 0 /HPF (0-4)
[2018-12-13 13:45] LABS: ALBUMIN 2.5 g/dL (3.4-5.0); ALBUMIN/GLOBULIN RATIO 0.6 (1.0-1.7); TOTAL BILIRUBIN 0.3 mg/dL (0.2-1.0); TOTAL PROTEIN 6.9 g/dL (6.4-8.2)
[2018-12-13 13:52] LABS: INFLUENZA A PATIENT NEGATIVE (NEGATIVE); INFLUENZA B PATIENT NEGATIVE (NEGATIVE)
[2018-12-13] MEDS ORDERED: VANCOMYCIN 1.75 GM in IV NORMAL SALINE 500ML BAG 500 ML IV ONE (14:00)
--- NOTE | 2018-12-13 14:03 | PDOC1 ---
History and Physical Date of Admission Date of Admission DATE: 12/13/18 TIME: 14:03 Identification/Chief Complaint Chief Complaint seen in er presented back to ER for evaluation of abdominal pain, nausea vomiting, trouble breathing, cough 12/13 . Patient was just seen here in the ER for suicidal ideation 2 hrs [employer]. TO [facility] she refused to talk to them during the interview process because she continued have abdominal pain so she was sent back here for evaluation. CXR C/W PNEUMONIA Past Medical History Cardiovascular: No pertinent hx Pulmonary: No pertinent hx GI: Other Heme/Onc: No pertinent hx Psych: Anxiety, Addictions, Panic Rheumatologic: No pertinent hx ENT: No pertinent hx Renal/: No pertinent hx Endocrine: No pertinent hx, Other Past Surgical History Past Surgical History: Cholecystectomy Family History Family History: Diabetes, Heart Disease, Other Family History: Grandparents Social History Smoke: <1 pack per day ALCOHOL: none Drugs: Marijuana Current Problem List Problem List Problems Medical Problems: (1) Cyclic vomiting syndrome Status: Acute (2) HCAP (healthcare-associated pneumonia) Status: Acute Current Medications Current Medications Current Medications Ketamine HCl (Ketamine) 25 mg 1X ONCE IM Last administered on 12/13/18at 12:54 ; Start 12/13/18 at 12:45; Stop 12/13/18 at 12:46; Status DC Ketorolac Tromethamine (Toradol Im) 60 mg 1X ONCE IM Last administered on 12/13at 12:54; Start 12/13/18 at 12:45; Stop 12/13/18 at 12:46; Status DC Piperacillin Sod/ Tazobactam Sod 3.375 gm/Sodium Chloride 50 ml @ 100 mls/hr 1X ONCE IV Last administered on 12/13/18at 13:36; Start 12/13/18 at 13:00; Stop 12/13/18 at 13:29; Status DC Sodium Chloride 1,000 ml @ 1,000 mls/hr 1X ONCE IV Last administered on at 13:38; Start 12/13/18 at 13:15; Stop 12/13/18 at 14:14 Ondansetron HCl (Zofran) 4 mg PRN Q8HRS PRN IV NAUSEA/VOMITING; Start 12/13/18 at 13:15; Stop 12/14/18 at 13:14 Sodium Chloride 1,000 ml @ 100 mls/hr Q10H IV ; Start 12/13/18 at 13:11; Stop 12/14/18 at 13:10 Vancomycin HCl (Vanco Per Pharmacy) 1 each PRN DAILY PRN MC SEE COMMENTS; Start 12/13/18 at 13:15; Status UNV Levofloxacin/ Dextrose (Levaquin Per Pharmacy) 1 each PRN DAILY PRN MC SEE COMMENTS; Start 12/13/18 at 13:15 Vancomycin HCl 1.75 gm/Sodium Chloride 500 ml @ 250 mls/hr 1X ONCE IV ; Start 12/13/18 at 14:00; Stop 12/13/18 at 15:59 Levofloxacin/ Dextrose 150 ml @ 100 mls/hr Q24H IV ; Start 12/13/18 at 13:00 Active Scripts Active Reglan (Metoclopramide Hcl) 10 Mg Tablet 1 Tab PO TID Klor-Con M20 (Potassium Chloride) 20 Meq Tab.er.prt 40 Meq PO BID MDD 1 7 Days Amitriptyline Hcl 25 Mg Tablet 25 Mg PO QHS MDD 1 Percocet 5-325 Mg Tablet (Oxycodone/Acetaminophen) 1 Each Tablet 1 Tab PO PRN Q4HRS PRN MDD 1 Ativan (Lorazepam) 0.5 Mg Tablet 0.5 Mg PO TID PRN MDD 1 Ondansetron Odt (Ondansetron) 4 Mg Tab.rapdis 1 Tab PO PRN Q6-8HRS PRN MDD 1 Capsaicin 60 Gm Cream..g. 1 Matt TP TID PRN PRN Pepcid (Famotidine) 20 Mg Tablet 20 Mg PO BID Capsaicin 60 Gm Cream..g. 1 Matt TP TID PRN PRN Pepcid (Famotidine) 20 Mg Tablet 20 Mg PO BID Phenergan (Promethazine HCl) 25 Mg Supp.rect 25 Mg RC Q8HRS PRN Allergies Allergies: Coded Allergies: coconut (Verified Allergy, Severe, Anaphylaxis, 01/22/17) rash, hives, throat sweeling ROS Review of System Review of Systems Review of Systems Constitutional: Denies fever or chills [] Eyes: Denies change in visual acuity, redness, or eye pain [] HENT: Denies nasal congestion or sore throat [] Respiratory: positive for cough and shortness of breath [] Cardiovascular: No additional information not addressed in HPI [] GI: positive for abdominal pain, nausea, vomiting , NO bloody stools or diarrhea [] : Denies dysuria or hematuria [] Musculoskeletal: Denies back pain or joint pain [] Integument: Denies rash or skin lesions [] Neurologic: Denies headache, focal weakness or sensory changes [] Endocrine: Denies polyuria or polydipsia [] 14 PT systems were reviewed and found to be within normal limits, except as documented General: YES: Chills, Fatigue PSYCHOLOGICAL ROS: YES: Anxiety, Concentration difficultie, Depression, Hallucinations HEENT: No: Heacaches, Visual Changes, Hearing change, Nasal congestion, Nasal discharge, Oral lesions, Sinus pain, Sore Throat, Epistaxis, Sneezing, Snoring, Tinnitus, Vertigo, Vocal changes, Other ALLERGY AND IMMUNOLOGY: No: Hives, Insect Bite Sensitivity, Itchy/Watery Eyes, Nasal Congestion, Post Nasal Drip, Seasonal Allergies, Other Physical Exam Physical Exam Physical Exam Physical Exam Constitutional: Well developed, well nourished, MILD acute distress, non-toxic appearance. [] HENT: Normocephalic, atraumatic, bilateral external ears normal, oropharynx moist, no oral exudates, nose normal. [] Eyes: PERRLA, EOMI, conjunctiva normal, no discharge. [] Neck: Normal range of motion, no tenderness, supple, no stridor. [] Cardiovascular:Heart rate regular rhythm, no murmur [] Lungs & Thorax: crackles in both mid lung morales. Abdomen: Bowel sounds normal, soft, no tenderness, no masses, no pulsatile masses. [] Skin: Warm, dry, no erythema, no rash. [] Back: No tenderness, no CVA tenderness. [] Extremities: No tenderness, no cyanosis, no clubbing, ROM intact, no edema. [] Neurologic: Alert and oriented X 3, normal motor function, normal sensory function, no focal deficits noted. [] Psychologic: SI, NO HI. General: Alert, Cooperative, mild distress Heart: RRR Breasts: Not examined Abdomen: Normal bowel sounds, Soft Rectal Exam: not examined PELVIC: Examination not indicated Extremities: No cyanosis, No edema Neuro: Normal speech, Sensation intact, Cranial nerves 3-12 NL Vitals Vitals Vital Signs Date Time Temp Pulse Resp B/P (MAP) Pulse Ox O2 Delivery O2 Flow Rate FiO2 12/13/18 12:05 97.7 116 20 202/99 (133) 99 Room Air 97.7 Labs Labs Laboratory Tests Test 12/13/18 12:42 12/13/18 13:18 12/13/18 13:19 Urine Collection Type Unknown Urine Color Yellow Urine Clarity Cloudy Urine pH 7.5 Urine Specific [place] <=1.005 Urine Protein Negative mg/dL (NEG-TRACE) Urine Glucose (UA) Negative mg/dL (NEG) Urine Ketones (Stick) Negative mg/dL (NEG) Urine Blood Moderate (NEG) Urine Nitrite Negative (NEG) Urine Bilirubin Negative (NEG) Urine Urobilinogen Dipstick 0.2 mg/dL (0.2 mg/dL) Urine Leukocyte Esterase Negative (NEG) Urine RBC 0 /HPF (0-2) Urine WBC 0 /HPF (0-4) Urine Squamous Epithelial Cells Many /LPF Urine Bacteria Moderate /HPF (0-FEW) Influenza Type A Antigen Negative (NEGATIVE) Influenza Type B Antigen Negative (NEGATIVE) White Blood Count 9.7 x10^3/uL (4.0-11.0) Red Blood Count 4.35 x10^6/uL (3.50-5.40) Hemoglobin 12.5 g/dL (12.0-15.5) Hematocrit 37.5 % (36.0-47.0) Mean Corpuscular Volume 86 fL (79-100) Mean Corpuscular Hemoglobin 29 pg (25-35) Mean Corpuscular Hemoglobin Concent 34 g/dL (31-37) Red Cell Distribution Width 14.2 % (11.5-14.5) Platelet Count 345 x10^3/uL (140-400) Neutrophils (%) (Auto) 78 % (31-73) Lymphocytes (%) (Auto) 14 % (24-48) Monocytes (%) (Auto) 5 % (0-9) Eosinophils (%) (Auto) 2 % (0-3) Basophils (%) (Auto) 1 % (0-3) Neutrophils # (Auto) 7.6 x10^3uL (1.8-7.7) Lymphocytes # (Auto) 1.4 x10^3/uL (1.0-4.8) Monocytes # (Auto) 0.5 x10^3/uL (0.0-1.1) Eosinophils # (Auto) 0.2 x10^3/uL (0.0-0.7) Basophils # (Auto) 0.1 x10^3/uL (0.0-0.2) Sodium Level 137 mmol/L (136-145) Potassium Level 4.2 mmol/L (3.5-5.1) Chloride Level 101 mmol/L (98-107) Carbon Dioxide Level 29 mmol/L (21-32) Anion Gap 7 (6-14) Blood Urea Nitrogen 4 mg/dL (7-20) Creatinine 0.5 mg/dL (0.6-1.0) Estimated GFR (Cockcroft-Gault) 150.3 BUN/Creatinine Ratio 8 (6-20) Glucose Level 99 mg/dL (70-99) Lactic Acid Level 1.0 mmol/L (0.4-2.0) Calcium Level 8.7 mg/dL (8.5-10.1) Total Bilirubin 0.3 mg/dL (0.2-1.0) Aspartate Amino Transf (AST/SGOT) 18 U/L (15-37) Alanine Aminotransferase (ALT/SGPT) 22 U/L (14-59) Alkaline Phosphatase 55 U/L (46-116) Total Protein 6.9 g/dL (6.4-8.2) Albumin 2.5 g/dL (3.4-5.0) Albumin/Globulin Ratio 0.6 (1.0-1.7) Lipase 73 U/L (73-393) Laboratory Tests Test 12/13/18 12:42 12/13/18 13:18 12/13/18 13:19 Urine Collection Type Unknown Urine Color Yellow Urine Clarity Cloudy Urine pH 7.5 Urine Specific [place] <=1.005 Urine Protein Negative mg/dL (NEG-TRACE) Urine Glucose (UA) Negative mg/dL (NEG) Urine Ketones (Stick) Negative mg/dL (NEG) Urine Blood Moderate (NEG) Urine Nitrite Negative (NEG) Urine Bilirubin Negative (NEG) Urine Urobilinogen Dipstick 0.2 mg/dL (0.2 mg/dL) Urine Leukocyte Esterase Negative (NEG) Urine RBC 0 /HPF (0-2) Urine WBC 0 /HPF (0-4) Urine Squamous Epithelial Cells Many /LPF Urine Bacteria Moderate /HPF (0-FEW) Influenza Type A Antigen Negative (NEGATIVE) Influenza Type B Antigen Negative (NEGATIVE) White Blood Count 9.7 x10^3/uL (4.0-11.0) Red Blood Count 4.35 x10^6/uL (3.50-5.40) Hemoglobin 12.5 g/dL (12.0-15.5) Hematocrit 37.5 % (36.0-47.0) Mean Corpuscular Volume 86 fL (79-100) Mean Corpuscular Hemoglobin 29 pg (25-35) Mean Corpuscular Hemoglobin Concent 34 g/dL (31-37) Red Cell Distribution Width 14.2 % (11.5-14.5) Platelet Count 345 x10^3/uL (140-400) Neutrophils (%) (Auto) 78 % (31-73) Lymphocytes (%) (Auto) 14 % (24-48) Monocytes (%) (Auto) 5 % (0-9) Eosinophils (%) (Auto) 2 % (0-3) Basophils (%) (Auto) 1 % (0-3) Neutrophils # (Auto) 7.6 x10^3uL (1.8-7.7) Lymphocytes # (Auto) 1.4 x10^3/uL (1.0-4.8) Monocytes # (Auto) 0.5 x10^3/uL (0.0-1.1) Eosinophils # (Auto) 0.2 x10^3/uL (0.0-0.7) Basophils # (Auto) 0.1 x10^3/uL (0.0-0.2) Sodium Level 137 mmol/L (136-145) Potassium Level 4.2 mmol/L (3.5-5.1) Chloride Level 101 mmol/L (98-107) Carbon Dioxide Level 29 mmol/L (21-32) Anion Gap 7 (6-14) Blood Urea Nitrogen 4 mg/dL (7-20) Creatinine 0.5 mg/dL (0.6-1.0) Estimated GFR (Cockcroft-Gault) 150.3 BUN/Creatinine Ratio 8 (6-20) Glucose Level 99 mg/dL (70-99) Lactic Acid Level 1.0 mmol/L (0.4-2.0) Calcium Level 8.7 mg/dL (8.5-10.1) Total Bilirubin 0.3 mg/dL (0.2-1.0) Aspartate Amino Transf (AST/SGOT) 18 U/L (15-37) Alanine Aminotransferase (ALT/SGPT) 22 U/L (14-59) Alkaline Phosphatase 55 U/L (46-116) Total Protein 6.9 g/dL (6.4-8.2) Albumin 2.5 g/dL (3.4-5.0) Albumin/Globulin Ratio 0.6 (1.0-1.7) Lipase 73 U/L (73-393) VTE Prophylaxis Ordered VTE Prophylaxis Devices: Yes VTE Pharmacological Prophylaxi: Yes Assessment/Plan Assessment/Plan IMPRESSION Cyclic vomiting syndrome-PERSISTENT Depression NOS Suicidal ideation-outpatient PNEUMONIA POSSIBLE ASPIRATION AK I VMN-resolved PLAN IV ANTIBIOTICS COVER HCAP ID CONSULT 1: 1 SITTER SUICIDE [employer] VIRGINIA DE GUZMAN MD Dec 13, 2018 14:03
[2018-12-13 15:20] VITALS: BP 133/95
[2018-12-13] MEDS: IV NORMAL SALINE 1000ML BAG 1,000 ML IV SCH ×2 (15:41→23:11)
[2018-12-13] MEDS ORDERED: ACETAMINOPHEN 325 MG TABLET. PO PRN (16:00)
--- NOTE | 2018-12-13 16:13 | NUR ---
Pharmacy Vancomycin Dosing Note S:Consulted to monitor and dose vancomycin started 12/13/18. O:BILL GONZÁLES is a 23 year old F with HCAP . Height: 5 feet, 4 inches Weight: 66.362508 kg [place] Body Weight: 54.70 Adjusted Body Weight: 59.22 Dosing Weight: Actual Other Antibiotics: LEVAQUIN LABS: Last BUN: 4 Last Creatinine: 0.5 Creatinine Clearance: >100 mL/min Last WBC: 9.7 Last Procalcitonin: Tmax (past 24 hours): 97.7 Microbiology: I/O: Drug Levels: Last Trough level: on at Last dose given 12/13/18 at 1551 Vancomycin Dosing: Loading Dose: 1750 mg x1 Dosing Weight: Actual Target Trough: 15-20 A: Based on: Body weight and renal function P: 1. After loading dose, start Vancomycin 1000 mg IV q8h 2. Follow up Trough level on 12/14/18 at 1530 3. Pharmacy will continue to monitor, follow and adjust therapy as needed. RJ MCCLOUD [facility] [place], 12/13/18 [id number]
--- NOTE | 2018-12-13 17:00 | NUR ---
Patient denies taking any medications at home now.
--- NOTE | 2018-12-13 18:00 | NUR ---
Patient has been admitted to room 521, with c/o abd pain. Upon arrival to unit, patient demanded food, not clear liquids, stating that she was starving. Patient related that cause was pneumonia, pain not bad, and she needed to eat. Within 15 minutes, requested pain medication "now", and wasn't hungry anymore (had also requested jello from cafeteria, as she didn't like the jello on floor) Patient has gotten into shower twice, sitting and laying on floor. Patient has been observed putting fingers down throat on 2 separate occasions to induce vomiting. Dr Kirkpatrick has been called per pt requests for pain medication. Have encouraged activities to help relax, such as concentrating on slow deep breaths, which patient did show exhibit some understanding of.
[2018-12-13] MEDS: KETOROLAC 30 MG/ML VIAL. IV PRN (18:23)
--- NOTE | 2018-12-13 18:35 | NUR ---
Patient has been given dose of Toradol as ordered by Dr Kirkpatrick. Patient requested for medicine to be pushed "fast, so that it will work". Assured patient she would receive full effect of medication if pushed slowly. Within approx 10 minutes, patient requested that Dr be called again, because it wasn't helping yet. Nurse related to patient that not enough time had elapsed to be able to evaluate pain relief. Patient continues to have 1:1 observation, suicide precautions in place. Patient has not verbalized any statements regarding suicide attempts since admission to unit. No visitors or inquiries regarding patient have been noted.
[2018-12-13 19:00] VITALS: BP 144/99
[2018-12-13] MEDS: LACTOBACILLUS RHAMNOSUS GG 1 CAPSULE. PO SCH (21:00)
[2018-12-13 23:00] VITALS: BP 144/87
[2018-12-14] MEDS: VANCOMYCIN 1 GM in IV NORMAL SALINE 250ML 250 ML IV SCH ×2 (00:54→09:41)
[2018-12-14] MEDS: KETOROLAC 30 MG/ML VIAL. IV PRN ×2 (00:55→08:40)
[2018-12-14 03:00] VITALS: BP 109/62
[2018-12-14 07:20] VITALS: BP 112/76
[2018-12-14] MEDS ORDERED: ONDANSETRON PF 4 MG/2 ML VIAL. IV PRN (09:15)
[2018-12-14 09:25] LABS: BASO % 0 % (0-3); EOS # 0.1 x10^3/uL (0.0-0.7); EOS % 1 % (0-3); HEMATOCRIT 38.9 % (36.0-47.0); HEMOGLOBIN 13.2 g/dL (12.0-15.5); LYMPH # 1.4 x10^3/uL (1.0-4.8); LYMPH % 18 % (24-48); MEAN CORPUSCULAR HEMOGLOBIN 30 pg (25-35); MEAN CORPUSCULAR HGB CONC 34 g/dL (31-37); MEAN CORPUSCULAR VOLUME 87 fL (79-100); MONO # 0.4 x10^3/uL (0.0-1.1); MONO % 5 % (0-9); NEUT % 75 % (31-73); PLATELET COUNT 361 x10^3/uL (140-400); RED BLOOD COUNT 4.45 x10^6/uL (3.50-5.40); RED CELL DISTRIBUTION WIDTH 14.1 % (11.5-14.5)
[2018-12-14 09:29] LABS: CALCIUM 8.5 mg/dL (8.5-10.1); CREATININE 0.6 mg/dL (0.6-1.0); GFR 121.8; POTASSIUM 3.6 mmol/L (3.5-5.1)
--- NOTE | 2018-12-14 09:40 | NUR ---
FRANK responding to a referral regarding frequent hospital admission and SI. FRANK phoned the PAT team for SI assessment and evaluation. A service team leader from PAT team will come in to see pt this morning. Will continue to follow
--- NOTE | 2018-12-14 10:07 | PDOC ---
Infectious Disease Note Vital Sign Vital Signs Vital Signs Date Time Temp Pulse Resp B/P (MAP) Pulse Ox O2 Delivery O2 Flow Rate FiO2 12/14/18 07:20 98.4 97 20 112/76 (88) 97 Room Air 98.4 Labs Lab Laboratory Tests Test 12/13/18 12:42 12/13/18 13:18 12/13/18 13:19 12/14/18 08:43 Urine Collection Type Unknown Urine Color Yellow Urine Clarity Cloudy Urine pH 7.5 Urine Specific [place] <=1.005 Urine Protein Negative mg/dL (NEG-TRACE) Urine Glucose (UA) Negative mg/dL (NEG) Urine Ketones (Stick) Negative mg/dL (NEG) Urine Blood Moderate (NEG) Urine Nitrite Negative (NEG) Urine Bilirubin Negative (NEG) Urine Urobilinogen Dipstick 0.2 mg/dL (0.2 mg/dL) Urine Leukocyte Esterase Negative (NEG) Urine RBC 0 /HPF (0-2) Urine WBC 0 /HPF (0-4) Urine Squamous Epithelial Cells Many /LPF Urine Bacteria Moderate /HPF (0-FEW) Influenza Type A Antigen Negative (NEGATIVE) Influenza Type B Antigen Negative (NEGATIVE) White Blood Count 9.7 x10^3/uL (4.0-11.0) 8.0 x10^3/uL (4.0-11.0) Red Blood Count 4.35 x10^6/uL (3.50-5.40) 4.45 x10^6/uL (3.50-5.40) Hemoglobin 12.5 g/dL (12.0-15.5) 13.2 g/dL (12.0-15.5) Hematocrit 37.5 % (36.0-47.0) 38.9 % (36.0-47.0) Mean Corpuscular Volume 86 fL (79-100) 87 fL (79-100) Mean Corpuscular Hemoglobin 29 pg (25-35) 30 pg (25-35) Mean Corpuscular Hemoglobin Concent 34 g/dL (31-37) 34 g/dL (31-37) Red Cell Distribution Width 14.2 % (11.5-14.5) 14.1 % (11.5-14.5) Platelet Count 345 x10^3/uL (140-400) 361 x10^3/uL (140-400) Neutrophils (%) (Auto) 78 % (31-73) 75 % (31-73) Lymphocytes (%) (Auto) 14 % (24-48) 18 % (24-48) Monocytes (%) (Auto) 5 % (0-9) 5 % (0-9) Eosinophils (%) (Auto) 2 % (0-3) 1 % (0-3) Basophils (%) (Auto) 1 % (0-3) 0 % (0-3) Neutrophils # (Auto) 7.6 x10^3uL (1.8-7.7) 6.0 x10^3uL (1.8-7.7) Lymphocytes # (Auto) 1.4 x10^3/uL (1.0-4.8) 1.4 x10^3/uL (1.0-4.8) Monocytes # (Auto) 0.5 x10^3/uL (0.0-1.1) 0.4 x10^3/uL (0.0-1.1) Eosinophils # (Auto) 0.2 x10^3/uL (0.0-0.7) 0.1 x10^3/uL (0.0-0.7) Basophils # (Auto) 0.1 x10^3/uL (0.0-0.2) 0.0 x10^3/uL (0.0-0.2) Sodium Level 137 mmol/L (136-145) 133 mmol/L (136-145) Potassium Level 4.2 mmol/L (3.5-5.1) 3.6 mmol/L (3.5-5.1) Chloride Level 101 mmol/L (98-107) 97 mmol/L (98-107) Carbon Dioxide Level 29 mmol/L (21-32) 22 mmol/L (21-32) Anion Gap 7 (6-14) 14 (6-14) Blood Urea Nitrogen 4 mg/dL (7-20) 4 mg/dL (7-20) Creatinine 0.5 mg/dL (0.6-1.0) 0.6 mg/dL (0.6-1.0) Estimated GFR (Cockcroft-Gault) 150.3 121.8 BUN/Creatinine Ratio 8 (6-20) Glucose Level 99 mg/dL (70-99) 117 mg/dL (70-99) Lactic Acid Level 1.0 mmol/L (0.4-2.0) Calcium Level 8.7 mg/dL (8.5-10.1) 8.5 mg/dL (8.5-10.1) Total Bilirubin 0.3 mg/dL (0.2-1.0) Aspartate Amino Transf (AST/SGOT) 18 U/L (15-37) Alanine Aminotransferase (ALT/SGPT) 22 U/L (14-59) Alkaline Phosphatase 55 U/L (46-116) Total Protein 6.9 g/dL (6.4-8.2) Albumin 2.5 g/dL (3.4-5.0) Albumin/Globulin Ratio 0.6 (1.0-1.7) Lipase 73 U/L (73-393) Objective Assessment Chronic abd pain Anxiety disorder Possible aspiration Leukocytosis Plan Plan of Care d/c harjit d/yaya hernandez for now supportive care SOPHIA ARELLANO MD Dec 14, 2018 10:07
--- NOTE | 2018-12-14 10:10 | RAD ---
AP and Lateral Views of the Chest 12/14/2018 9:07 AM Indication: cough, evaluate for aspiration Comparison: Abdominal Series , yesterday Findings: No pneumothorax or pleural effusion is seen. Bilateral alveolar and interstitial infiltrates are grossly unchanged. Heart size is normal. Bony thorax is unchanged. Impression: Grossly unchanged appearance of bilateral interstitial alveolar infiltrates. Electronically signed by: Anthony Jones MD (12/14/2018 10:07 AM) [id number]
[2018-12-14] MEDS: LACTOBACILLUS RHAMNOSUS GG 1 CAPSULE. PO SCH ×2 (10:43→19:25)
[2018-12-14] MEDS: IV NORMAL SALINE 1000ML BAG 1,000 ML IV SCH (10:44)
[2018-12-14 10:53] VITALS: BP 96/70
[2018-12-14] MEDS: ALPRAZolam 0.5 MG TABLET PO PRN ×2 (11:23→19:25)
[2018-12-14] MEDS ORDERED: MORPHINE SULFATE 4 MG/ML VIAL. IV PRN ×2 (12:45→13:15)
[2018-12-14] MEDS: fentaNYL PF VIAL 100 MCG/2 ML VIAL IV PRN ×4 (13:50→21:40)
--- NOTE | 2018-12-14 14:26 | NUR ---
SW following pt. Spoke with Shalini from PAT team. Pt still SI and needs to be 1:1. Shawnee reported once pt is medically stable, they will assess for placement in inpatient psych at [facility]. Shalini has discussed with RN regarding above. Will continue to follow.
[2018-12-14 15:03] VITALS: BP 133/86
[2018-12-14] MEDS ORDERED: IPRATRPIUM/ALBUTEROL 0.5/2.5MG 3 ML NEBU. NEB SCH (16:00)
[2018-12-14 19:00] VITALS: BP 135/91
[2018-12-14] MEDS: ZOLPIDEM 5 MG TABLET. PO PRN (19:25)
[2018-12-14] MEDS: AMITRIPTYLINE HCL 25 MG TABLET. PO SCH (19:31)
[2018-12-14] MEDS: PIPERACILLIN/TAZOBACTAM 3.375 GM in IV NORMAL SALINE 50ML 50 ML IV SCH (20:27)
[2018-12-14 22:58] VITALS: BP 123/70
--- NOTE | 2018-12-14 23:58 | PN ---
DATE: 12/14/2018 SUBJECTIVE: The patient has bounced back, I discharged for cyclic vomiting, was following up with [facility] when she had some dramatic vomiting, hence [facility] felt uncomfortable and shipped her back to ER and ER found some aspiration signs of pneumonitis, hence admitted. The chest findings were found when ER ordered acute abdominal series, but no formal chest x-ray was done. As I see the patient, she is dry heaving, multiple calls already from the RN for pain medicine and anxiety. I also discussed with psych/liaison, did ask about antianxiety medications, which she gets here in the hospital. I also have started Elavil the last time she was here, which was 2 days ago, 25 p.o. every day as she was on it before and I thought it would be worth a shot to try if this can help with her cyclic vomiting. So far, electrolytes okay. OBJECTIVE: GENERAL: Dry heaving, dramatic in symptoms, teary eye, looks uncomfortable, but not in distress. HEENT: Unremarkable. CHEST: Clear to auscultation bilaterally. Decreased breath sounds secondary to poor effort. HEART: Normal rate and rhythm. No murmurs, rubs or gallops. ABDOMEN: Soft, nontender. Normoactive bowel sounds. GENITALIA: Appropriate for age. EXTREMITIES: Negative edema. Pulses full and equal. No pallor or cyanosis of nailbed. ASSESSMENT AND PLAN: 1. Possible aspiration pneumonia from chronic vomiting. 2. Cyclic vomiting syndrome. 3. Anxiety, not otherwise specified. 4. Depression, not otherwise specified. 5. History of suicidal ideation -- discussed with the psych liaison. She is looking into inpatient psych/addiction facility and I think this is the best route for the patient. 6. Discussed with RN at bedside, morphine 4 mg not working. 7. Trial of fentanyl. 8. Okay for regular diet. 9. Lots of calls already. GEOVANNI PENNINGTON MD DR: /nts JOB#: [id number] / [id number]
[2018-12-15] MEDS: PIPERACILLIN/TAZOBACTAM 3.375 GM in IV NORMAL SALINE 50ML 50 ML IV SCH ×5 (00:44→22:02)
--- NOTE | 2018-12-15 01:12 | CONS ---
DATE OF CONSULTATION: 12/14/2018 REQUESTING PHYSICIAN: Dr. Kirkpatrick. REASON FOR CONSULTATION: Aspiration pneumonia. HISTORY OF PRESENT ILLNESS: This is a 23-year-old female with history of chronic abdominal pain that has been multiple ER visits and hospitalizations. Also, has some nausea, vomiting and trouble breathing, that was brought in. The patient in fact was cleared for suicidal ideation to [facility] and she was sent back because of the abdominal pain. The patient has been now admitted. The patient's abdominal x-ray showed possible she has pneumonia. Chest x-ray is pending. The patient did have a white count of 16,000 and just because she was recently discharged, patient was initiated on vancomycin, Zosyn and Levaquin. The patient is alert, awake. The patient, in fact, when I entered the room, she was comfortably sleeping and as I introduced myself, she started complaining of severe abdominal pain. The patient denied any nausea or vomiting. Denied any cough, denied any shortness of breath. Denies any fever. Denies any diarrhea, just complaining of severe abdominal pain that she cannot handle, she says. Denies any urinary symptoms. PAST MEDICAL HISTORY: Positive for anxiety disorder, panic disorder, "cyclic vomiting." Also, has had cholecystectomy and this abdominal pain off and on for a while, she says. SOCIAL HISTORY: Negative for smoking, alcohol or illicit drug use. The patient does do marijuana. ALLERGIES: No known drug allergies. CURRENT MEDICATIONS: Reviewed. REVIEW OF SYSTEMS: As per HPI. All other systems reviewed are negative. PHYSICAL EXAMINATION: GENERAL: Alert, oriented female, who is not in any distress. VITAL SIGNS: Stable, afebrile. HEENT: NAD. NECK: Supple, no JVP, no lymphadenopathy. LUNGS: Clear. HEART: S1, S2 regular. ABDOMEN: Not distended. She subjectively says it hurts, but there is no rebound or guarding when distracted. No organomegaly appreciated. NEUROLOGIC: Intact. SKIN: Unremarkable. LABORATORY DATA: White count is down to normal, 8000. Her platelets are normal. BUN and creatinine is normal. Lactic acid was normal. Urinalysis was unremarkable. Drug screen was negative. Influenza screen was negative. Urine culture is negative. Abdominal x-ray as I mentioned is showing diffuse central prominent bilateral interstitial and alveolar infiltrate. Chest x-ray is pending. IMPRESSION: 1. Abdominal pain with off and on nausea and vomiting. 2. Possible aspiration pneumonia. 3. Anxiety disorder. 4. Panic disorder. 5. Leukocytosis, which has improved. RECOMMENDATIONS: We will discontinue vancomycin, discontinue Levaquin. Continue Zosyn and to soon be able to switch over to p.o. Augmentin. The patient needs psychiatric help. Thank you very much, Dr. Kirkpatrick, for giving me the opportunity to participate in this patient's care. SOPHIA ARELLANO MD DR: NAYELI/rusty JOB#: [id number] / [id number]
[2018-12-15] MEDS: fentaNYL PF VIAL 100 MCG/2 ML VIAL IV PRN ×11 (01:47→22:02)
[2018-12-15 03:00] VITALS: BP 110/63
[2018-12-15] MEDS: ALPRAZolam 0.5 MG TABLET PO PRN ×3 (03:46→20:00)
--- NOTE | 2018-12-15 06:13 | NUR ---
Pt. slept most of the night although very restless in bed. Took shower twice while having a panic attack. Ate multiple sherberts, ice cream, chicken noodle soups, apple juices, and hot tea with 6 packets of sugar in each glass. Continues to complain about abdominal pain.
[2018-12-15 07:04] VITALS: BP 106/73
[2018-12-15] MEDS: LACTOBACILLUS RHAMNOSUS GG 1 CAPSULE. PO SCH ×2 (08:43→20:00)
[2018-12-15] MEDS ORDERED: LORA0.5T96 PO (09:04)
[2018-12-15] MEDS ORDERED: AMOX1TAB58 PO (09:05)
--- NOTE | 2018-12-15 09:35 | PDOC ---
Infectious Disease Note Subjective Subjective pt is feeling much better ROS ROS no n/v/d/sob abd pain is better Vital Sign Vital Signs Vital Signs Date Time Temp Pulse Resp B/P (MAP) Pulse Ox O2 Delivery O2 Flow Rate FiO2 12/15/18 08:16 Room Air 12/15/18 07:04 98.6 99 16 106/73 (84) 95 98.6 Physical Exam PHYSICAL EXAM GENERAL: Alert, oriented female, who is not in any distress. VITAL SIGNS: Stable, afebrile. HEENT: NAD. NECK: Supple, no JVP, no lymphadenopathy. LUNGS: Clear. HEART: S1, S2 regular. ABDOMEN: Not distended. She subjectively says it hurts, but there is no rebound or guarding when distracted. No organomegaly appreciated. NEUROLOGIC: Intact. SKIN: Unremarkable. Labs Micro Microbiology 12/13/18 Blood Culture - Preliminary, Resulted NO GROWTH AFTER 1 DAY 12/13/18 Urine Culture - Final, Complete 12/13/18 Urine Culture Result 1 (JORGE) - Final, Complete Objective Assessment Chronic abd pain Anxiety disorder Possible aspiration Leukocytosis Plan Plan of Care jose hurd to d/c supportive care SOPHIA ARELLANO MD Dec 15, 2018 09:35
--- NOTE | 2018-12-15 09:37 | NUR ---
Spoke with patient regarding plan for discharging to in-patient psych treatment. Pt is agreeable to go to in-pt treatment but requests to speak to PAT team before going. This RN notified the social worker psychiatric, whom will contact PAT team. Will continue to monitor.
--- NOTE | 2018-12-15 10:47 | NUR ---
FRANK following pt. Shalini from PAT team will come in to assess pt at 1130. Will continue to follow.
[2018-12-15 11:01] VITALS: BP 136/80
--- NOTE | 2018-12-15 11:12 | NUR ---
Pt getting agitated and continued to throw a comb at the wall when it was explained that when a patient is being monitored for suicide ideations, pt cannot make personal phone calls. Explained that we will discuss this with Shawnee from PAT team when she comes at 11:30.
--- NOTE | 2018-12-15 11:45 | NUR ---
Pt requested to speak to a member of the PAT team. Shawnee, from the PAT team came to speak to patient. Pt is requesting to use a phone to call , and Shawnee authorized the use of phone as long as 1:1 is in the room. Will continue to monitor.
--- NOTE | 2018-12-15 11:59 | PDOC3 ---
Discharge Summary Visit Information Date of Admission: Dec 13, 2018 Date of Discharge: Dec 15, 2018 Admitting Diagnosis Comment: 1. Possible aspiration pneumonia from chronic vomiting. 2. Cyclic vomiting syndrome. 3. Anxiety, not otherwise specified. 4. Depression, not otherwise specified. 5. History of suicidal ideation -- Final Diagnosis Problems Medical Problems: (1) Cyclic vomiting syndrome Status: Acute (2) HCAP (healthcare-associated pneumonia) Status: Acute Brief Hospital Course Allergies Allergies Coded Allergies Type Severity Reaction Last Updated Verified coconut Allergy Severe Anaphylaxis 01/22/17 Yes Vital Signs Vital Signs Date Time Temp Pulse Resp B/P (MAP) Pulse Ox O2 Delivery O2 Flow Rate FiO2 12/15/18 11:01 99.8 114 18 136/80 (98) 97 Room Air 99.8 Lab Results Laboratory Tests Test 12/13/18 12:42 12/13/18 13:18 12/13/18 13:19 12/14/18 08:43 Urine Collection Type Unknown Urine Color Yellow Urine Clarity Cloudy Urine pH 7.5 Urine Specific [place] <=1.005 Urine Protein Negative mg/dL (NEG-TRACE) Urine Glucose (UA) Negative mg/dL (NEG) Urine Ketones (Stick) Negative mg/dL (NEG) Urine Blood Moderate (NEG) Urine Nitrite Negative (NEG) Urine Bilirubin Negative (NEG) Urine Urobilinogen Dipstick 0.2 mg/dL (0.2 mg/dL) Urine Leukocyte Esterase Negative (NEG) Urine RBC 0 /HPF (0-2) Urine WBC 0 /HPF (0-4) Urine Squamous Epithelial Cells Many /LPF Urine Bacteria Moderate /HPF (0-FEW) Influenza Type A Antigen Negative (NEGATIVE) Influenza Type B Antigen Negative (NEGATIVE) White Blood Count 9.7 x10^3/uL (4.0-11.0) 8.0 x10^3/uL (4.0-11.0) Red Blood Count 4.35 x10^6/uL (3.50-5.40) 4.45 x10^6/uL (3.50-5.40) Hemoglobin 12.5 g/dL (12.0-15.5) 13.2 g/dL (12.0-15.5) Hematocrit 37.5 % (36.0-47.0) 38.9 % (36.0-47.0) Mean Corpuscular Volume 86 fL (79-100) 87 fL (79-100) Mean Corpuscular Hemoglobin 29 pg (25-35) 30 pg (25-35) Mean Corpuscular Hemoglobin Concent 34 g/dL (31-37) 34 g/dL (31-37) Red Cell Distribution Width 14.2 % (11.5-14.5) 14.1 % (11.5-14.5) Platelet Count 345 x10^3/uL (140-400) 361 x10^3/uL (140-400) Neutrophils (%) (Auto) 78 % (31-73) 75 % (31-73) Lymphocytes (%) (Auto) 14 % (24-48) 18 % (24-48) Monocytes (%) (Auto) 5 % (0-9) 5 % (0-9) Eosinophils (%) (Auto) 2 % (0-3) 1 % (0-3) Basophils (%) (Auto) 1 % (0-3) 0 % (0-3) Neutrophils # (Auto) 7.6 x10^3uL (1.8-7.7) 6.0 x10^3uL (1.8-7.7) Lymphocytes # (Auto) 1.4 x10^3/uL (1.0-4.8) 1.4 x10^3/uL (1.0-4.8) Monocytes # (Auto) 0.5 x10^3/uL (0.0-1.1) 0.4 x10^3/uL (0.0-1.1) Eosinophils # (Auto) 0.2 x10^3/uL (0.0-0.7) 0.1 x10^3/uL (0.0-0.7) Basophils # (Auto) 0.1 x10^3/uL (0.0-0.2) 0.0 x10^3/uL (0.0-0.2) Sodium Level 137 mmol/L (136-145) 133 mmol/L (136-145) Potassium Level 4.2 mmol/L (3.5-5.1) 3.6 mmol/L (3.5-5.1) Chloride Level 101 mmol/L (98-107) 97 mmol/L (98-107) Carbon Dioxide Level 29 mmol/L (21-32) 22 mmol/L (21-32) Anion Gap 7 (6-14) 14 (6-14) Blood Urea Nitrogen 4 mg/dL (7-20) 4 mg/dL (7-20) Creatinine 0.5 mg/dL (0.6-1.0) 0.6 mg/dL (0.6-1.0) Estimated GFR (Cockcroft-Gault) 150.3 121.8 BUN/Creatinine Ratio 8 (6-20) Glucose Level 99 mg/dL (70-99) 117 mg/dL (70-99) Lactic Acid Level 1.0 mmol/L (0.4-2.0) Calcium Level 8.7 mg/dL (8.5-10.1) 8.5 mg/dL (8.5-10.1) Total Bilirubin 0.3 mg/dL (0.2-1.0) Aspartate Amino Transf (AST/SGOT) 18 U/L (15-37) Alanine Aminotransferase (ALT/SGPT) 22 U/L (14-59) Alkaline Phosphatase 55 U/L (46-116) Total Protein 6.9 g/dL (6.4-8.2) Albumin 2.5 g/dL (3.4-5.0) Albumin/Globulin Ratio 0.6 (1.0-1.7) Lipase 73 U/L (73-393) Brief Hospital Course Ms. Fernandez is a 23 old cyclic vomiting, bounce back. She was on her way to [facility] with some psych people but she had severe vomiting, anxiety attack hence was brought back to the emergency room and on chest x-ray sounds some findings of aspiration pneumonitis. Initially on Zosyn. Comanage with ID. Okay for by mouth Augmentin. She is tolerating a diet. Asking for numerous pain medicines namely fentanyl 50 IV every 2 when necessary. I also recently started Elavil to help with cyclic vomiting. Also benefited from some Xanax and I have discussed with case management and [facility] liaison Discharge disposition to go to psych/addiction facility today Xanax and Augmentin on chart Including Elavil which I prescribed 2 days ago when she was here Difficult conversation with her today sitter at bedside, DC 31. 50% DC education counseling Discharge Information Condition at Discharge: Improved, Stable Disposition/Orders: Other (other -) Scheduled Amitriptyline Hcl (Amitriptyline Hcl) 25 Mg Tablet, 25 MG PO QHS for depression MDD 1, #30 Prescribed by: GEOVANNI PENNINGTON on 12/12/18 1222 Amoxicillin/Potassium Clav (Augmentin 500-125 Tablet) 1 Each Tablet, 1 TAB PO BID for vomiting, #14 Prescribed by: GEOVANNI PENNINGTON on 12/15/18 0905 Famotidine (Pepcid) 20 Mg Tablet, 20 MG PO BID, #20 Prescribed by: ANGELINA MASSEY D.O. on 12/03/18 1539 Famotidine (Pepcid) 20 Mg Tablet, 20 MG PO BID, #14 Prescribed by: ANGELINA MASSEY D.O. on 12/09/18 0516 Metoclopramide Hcl (Reglan) 10 Mg Tablet, 1 TAB PO TID for gastroparesis, #60 Prescribed by: GEOVANNI PENNINGTON on 12/12/18 1222 Potassium Chloride (Klor-Con M20) 20 Meq Tab.er.prt, 40 MEQ PO BID for low K MDD 1 for 7 Days, #28 Prescribed by: GEOVANNI PENNINGTON on 12/12/18 1222 Scheduled PRN Capsaicin (Capsaicin) 60 Gm Cream..g., 1 ADAM TP TID PRN PRN for PAIN, #1 Prescribed by: ANGELINA MASSEY D.O. on 12/03/18 1539 Capsaicin (Capsaicin) 60 Gm Cream..g., 1 ADAM TP TID PRN PRN for PAIN, #1 Prescribed by: ANGELINA MASSEY D.O. on 12/09/18 0516 Lorazepam (Ativan) 0.5 Mg Tablet, 0.5 MG PO TID PRN for ANXIETY MDD 1, #30 Prescribed by: GEOVANNI PENNINGTON on 12/15/18 0904 Ondansetron (Ondansetron Odt) 4 Mg Tab.rapdis, 1 TAB PO PRN Q6-8HRS PRN for VOMITING MDD 1, #16 Prescribed by: GEOVANNI PENNINGTON on 12/12/18 1222 Oxycodone/Apap 5-325 (Percocet 5-325 Mg Tablet ) 1 Each Tablet, 1 TAB PO PRN Q4HRS PRN for PAIN MDD 1, #20 Prescribed by: GEOVANNI PENNINGTON on 12/12/18 1222 Promethazine HCl (Phenergan) 25 Mg Supp.rect, 25 MG RC Q8HRS PRN for NAUSEA/ VOMITING, #14 Prescribed by: ANGELINA MASSEY D.O. on 12/03/18 1539 Discontinued Medications Lorazepam (Ativan) 0.5 Mg Tablet, 0.5 MG PO TID PRN for ANXIETY, #10 Discontinued Reason: Prescription changed Prescribed by: ANGELINA MASSEY D.O. on 12/09/18 0516 GEOVANNI PENNINGTON MD Dec 15, 2018 11:59
--- NOTE | 2018-12-15 12:50 | NUR ---
SW following pt. Spoke with Shawnee and pt agreeable to go to [facility]. Shawnee phoned and faxed referral to [facility], phone: [phone], fax: [phone]. Spoke with Bhumika at [facility] and they are reviewing documents. Acceptance and admission pending. Will continue to follow.
--- NOTE | 2018-12-15 13:51 | DISCH ---
DISCHARGE DISCHARGE INFORMATION: DISCHARGE DATE: Dec 15, 2018 FINAL DIAGNOSIS Problems Medical Problems: (1) Cyclic vomiting syndrome Status: Acute (2) HCAP (healthcare-associated pneumonia) Status: Acute CONDITION ON DISCHARGE: Stable CODE STATUS: Code Status: Full ASSISTED: SNF STAY <30 DAYS: Yes HOSPICE: HOSPICE: No HOSPICE EVAL & TREAT: No LTAC: ADMIT TO LTAC: No POST DISCHARGE ORDERS: ACTIVITY ORDERS: Activity as tolerated WEIGHT BEARING STATUS: As tolerated DIET AFTER DISCHARGE: Regular WOUND/INCISION CARE: No wound care needed CHECKS AFTER DISCHARGE: CHECKS AFTER DISCHARGE: Check blood press - daily TREATMENT/EQUIPMENT ORDERS: ADAPTIVE EQUIPMENT NEEDED: None DISCHARGE MEDICATIONS: Home Meds Active Scripts Amoxicillin/Potassium Clav (AUGMENTIN 500-125 TABLET) 1 Each Tablet, 1 TAB PO BID for vomiting, #14 TAB Prov:GEOVANNI PENNINGTON MD 12/15/18 Lorazepam (ATIVAN) 0.5 Mg Tablet, 0.5 MG PO TID PRN for ANXIETY MDD 1, #30 TAB Prov:GEOVANNI PENNINGTON MD 12/15/18 Metoclopramide Hcl (REGLAN) 10 Mg Tablet, 1 TAB PO TID for gastroparesis, #60 TAB Prov:GEOVANNI PENNINGTON MD 12/12/18 Potassium Chloride (KLOR-CON M20) 20 Meq Tab.er.prt, 40 MEQ PO BID for low K MDD 1 for 7 Days, #28 TAB.SR Prov:GEOVANNI PENNINGTON MD 12/12/18 Amitriptyline Hcl (AMITRIPTYLINE HCL) 25 Mg Tablet, 25 MG PO QHS for depression MDD 1, #30 TAB Prov:GEOVANNI PENNINGTON MD 12/12/18 Oxycodone/Apap 5-325 (PERCOCET 5-325 MG TABLET ) 1 Each Tablet, 1 TAB PO PRN Q4HRS PRN for PAIN MDD 1, #20 TAB Prov:GEOVANNI PENNINGTON MD 12/12/18 Ondansetron (ONDANSETRON ODT) 4 Mg Tab.rapdis, 1 TAB PO PRN Q6-8HRS PRN for VOMITING MDD 1, #16 TAB Prov:GEOVANNI PENNINGTON MD 12/12/18 Capsaicin (CAPSAICIN) 60 Gm Cream..g., 1 ADAM TP TID PRN PRN for PAIN, #1 TUBE Prov:ANGELINA MASSEY DO 12/09/18 Famotidine (PEPCID) 20 Mg Tablet, 20 MG PO BID, #14 TAB Prov:ANGELINA MASSEY DO 12/09/18 Capsaicin (CAPSAICIN) 60 Gm Cream..g., 1 ADAM TP TID PRN PRN for PAIN, #1 EACH Prov:ANGELINA MASSEY DO 12/03/18 Famotidine (PEPCID) 20 Mg Tablet, 20 MG PO BID, #20 TAB Prov:ANGELINA MASSEY DO 12/03/18 Promethazine HCl (Phenergan) 25 Mg Supp.rect, 25 MG RC Q8HRS PRN for NAUSEA/ VOMITING, #14 SUPP.RECT Prov:ANGELINA MASSEY DO 12/03/18 Discontinued Scripts Lorazepam (ATIVAN) 0.5 Mg Tablet, 0.5 MG PO TID PRN for ANXIETY, #10 TAB Prov:ANGELINA MASSEY DO 12/09/18 GEOVANNI PENNINGTON MD Dec 15, 2018 13:51
--- NOTE | 2018-12-15 14:39 | NUR ---
SW following. Spoke with Britney at [facility] who reported they have declined to take pt due to 'incapability to meet pt's needs at this time'. FRANK requested Britney to explain reason in detail but she reported that was the respond from reviewing team. FRANK phoned Shawnee at PAT team and discussed decision. Shawnee will be contacting [facility] to inquire about denial for admission. Will continue to follow.
[2018-12-15 15:03] VITALS: BP 103/65
--- NOTE | 2018-12-15 15:22 | NUR ---
SW following pt. Spoke with Shawnee from PAT team. She reported [facility] and other psych facilities are at capacity today. Will continue screening tomorrow to find facilities that have a bed. RN notified.
[2018-12-15 18:49] VITALS: BP 100/60
[2018-12-15] MEDS: ZOLPIDEM 5 MG TABLET. PO PRN (20:00)
[2018-12-15] MEDS: AMITRIPTYLINE HCL 25 MG TABLET. PO SCH (20:00)
[2018-12-15 23:00] VITALS: BP 110/71
[2018-12-16] MEDS: fentaNYL PF VIAL 100 MCG/2 ML VIAL IV PRN ×10 (00:01→23:01)
[2018-12-16 02:35] VITALS: BP 101/65
[2018-12-16] MEDS: ALPRAZolam 0.5 MG TABLET PO PRN ×3 (04:03→20:43)
[2018-12-16] MEDS: PIPERACILLIN/TAZOBACTAM 3.375 GM in IV NORMAL SALINE 50ML 50 ML IV SCH ×2 (06:00→12:19)
[2018-12-16 07:00] VITALS: BP 90/48
--- NOTE | 2018-12-16 08:36 | NUR ---
FRANK following pt. Spoke with Ltei at [facility] team. Shawnee will come in to see pt today. Pt still 1:1 and will benefit from inpatient psych placement. All facilities did not have bed as of last night. Will continue to follow. RN notified. Addendum: 12/16/18 at 1014 by SANTIAGO MARIE SW spoke with pt and pt is still interested in inpatient psych placement. FRANK notified pt Shawnee will come see her today. Pt verbalized understanding.
[2018-12-16] MEDS: LACTOBACILLUS RHAMNOSUS GG 1 CAPSULE. PO SCH ×2 (08:41→20:43)
--- NOTE | 2018-12-16 09:17 | NUR ---
Patient was upset this morning upon receiving her breakfast tray. She cried and told this nurse that she does not get what she wants. Called dietary for replacement tray, patient reassured that her needs are being taken care of and addressed by staff. After breakfast, patient went back to bed and slept. Will continue to monitor.
--- NOTE | 2018-12-16 10:35 | PDOC ---
Infectious Disease Note Subjective Subjective pt is feeling much better ROS ROS no n/v//d Vital Sign Vital Signs Vital Signs Date Time Temp Pulse Resp B/P (MAP) Pulse Ox O2 Delivery O2 Flow Rate FiO2 12/16/18 10:07 17 99 Room Air 12/16/18 07:00 97.5 84 90/48 (62) 97.5 Physical Exam PHYSICAL EXAM GENERAL: Alert, oriented female, who is not in any distress. VITAL SIGNS: Stable, afebrile. HEENT: NAD. NECK: Supple, no JVP, no lymphadenopathy. LUNGS: Clear. HEART: S1, S2 regular. ABDOMEN: Not distended. She subjectively says it hurts, but there is no rebound or guarding when distracted. No organomegaly appreciated. NEUROLOGIC: Intact. SKIN: Unremarkable. Labs Micro Microbiology 12/13/18 Blood Culture - Preliminary, Resulted NO GROWTH AFTER 1 DAY 12/13/18 Urine Culture - Final, Complete 12/13/18 Urine Culture Result 1 (JORGE) - Final, Complete Objective Assessment Chronic abd pain Anxiety disorder Possible aspiration Leukocytosis Plan Plan of Care augmentin, ok to d/c supportive care SOPHIA ARELLANO MD Dec 16, 2018 10:34
[2018-12-16 11:00] VITALS: BP 115/78
--- NOTE | 2018-12-16 11:29 | NUR ---
FRANK following pt. FRANK received a phone call from [facility] requesting updated clinicals/vitals to re-initiate screen. FRANK faxed clinicals to [facility]. Acceptance pending. Will continue to follow.
--- NOTE | 2018-12-16 11:54 | PDOC ---
PROGRESS NOTES Chief Complaint Chief Complaint Cyclic vomiting syndrome-PERSISTENT Depression NOS Suicidal ideation- PNEUMONIA POSSIBLE ASPIRATION AK I VMN-resolved History of Present Illness History of Present Illness can change to PO abx [facility] or [facility] by PAT team to go [facility] Vitals Vitals Vital Signs Date Time Temp Pulse Resp B/P (MAP) Pulse Ox O2 Delivery O2 Flow Rate FiO2 12/16/18 11:00 97.7 102 18 115/78 (90) 99 Room Air 97.7 Physical Exam Physical Exam GENERAL: Alert, oriented female, who is not in any distress. VITAL SIGNS: Stable, afebrile. HEENT: NAD. NECK: Supple, no JVP, no lymphadenopathy. LUNGS: Clear. HEART: S1, S2 regular. ABDOMEN: Not distended. She subjectively says it hurts, but there is no rebound or guarding when distracted. No organomegaly appreciated. NEUROLOGIC: Intact. SKIN: Unremarkable. General: Alert, Cooperative, mild distress Lungs: Clear, Other Abdomen: Normal bowel sounds, Soft Extremities: No cyanosis, No edema Assessment and Plan Assessmemt and Plan Problems Medical Problems: (1) Cyclic vomiting syndrome Status: Acute (2) HCAP (healthcare-associated pneumonia) Status: Acute Comment Review of Relevant I have reviewed the following items miguel (where applicable) has been applied. Labs Microbiology 12/13/18 Blood Culture - Preliminary, Resulted NO GROWTH AFTER 2 DAYS 12/13/18 Urine Culture - Final, Complete 12/13/18 Urine Culture Result 1 (JORGE) - Final, Complete Medications Current Medications Ketamine HCl (Ketamine) 25 mg 1X ONCE IM Last administered on 12/13/18at 12:54 ; Start 12/13/18 at 12:45; Stop 12/13/18 at 12:46; Status DC Ketorolac Tromethamine (Toradol Im) 60 mg 1X ONCE IM Last administered on 12/13at 12:54; Start 12/13/18 at 12:45; Stop 12/13/18 at 12:46; Status DC Piperacillin Sod/ Tazobactam Sod 3.375 gm/Sodium Chloride 50 ml @ 100 mls/hr 1X ONCE IV Last administered on 12/13/18at 13:36; Start 12/13/18 at 13:00; Stop 12/13/18 at 13:29; Status DC Sodium Chloride 1,000 ml @ 1,000 mls/hr 1X ONCE IV Last administered on at 13:38; Start 12/13/18 at 13:15; Stop 12/13/18 at 14:14; Status DC Ondansetron HCl (Zofran) 4 mg PRN Q8HRS PRN IV NAUSEA/VOMITING; Start 12/13/18 at 13:15; Stop 12/14/18 at 09:08; Status DC Sodium Chloride 1,000 ml @ 100 mls/hr Q10H IV Last administered on 12/14/18at 10:44; Start 12/13/18 at 13:11; Stop 12/14/18 at 13:10; Status DC Vancomycin HCl (Vanco Per Pharmacy) 1 each PRN DAILY PRN MC SEE COMMENTS Last administered on 12/13/18at 16:11; Start 12/13/18 at 13:15; Stop 12/14/18 at 10:07 ; Status DC Levofloxacin/ Dextrose (Levaquin Per Pharmacy) 1 each PRN DAILY PRN MC SEE COMMENTS; Start 12/13/18 at 13:15; Status Cancel Vancomycin HCl 1.75 gm/Sodium Chloride 500 ml @ 250 mls/hr 1X ONCE IV Last administered on 12/13/18at 15:51; Start 12/13/18 at 14:00; Stop 12/13/18 at 15:59 ; Status DC Levofloxacin/ Dextrose 150 ml @ 100 mls/hr Q24H IV Last administered on at 14:18; Start 12/13/18 at 13:00; Stop 12/14/18 at 10:05; Status DC Acetaminophen (Tylenol) 650 mg PRN Q6HRS PRN PO pain Last administered on at 16:12; Start 12/13/18 at 16:00 Lactobacillus Rhamnosus (Culturelle) 1 cap BID PO Last administered on at 08:41; Start 12/13/18 at 21:00 Vancomycin HCl 1 gm/Sodium Chloride 250 ml @ 250 mls/hr Q8H IV Last administered on 12/14/18at 09:41; Start 12/14/18 at 00:00; Stop 12/14/18 at 10:05 ; Status DC Vancomycin HCl (Vancomycin Trough Level) 1 each 1X ONCE MC ; Start 12/14/18 at 15:30; Stop 12/14/18 at 15:31; Status Cancel Ketorolac Tromethamine (Toradol 30mg Vial) 30 mg PRN Q6HRS PRN IV INFLAMMATION Last administered on 12/14/18 08:40; Start 12/13/18 at 18:15; Stop 12/18/18 at 18:14 Ondansetron HCl (Zofran) 4 mg PRN Q6HRS PRN IV NAUSEA/VOMITING; Start 12/14/18 at 09:15 Amitriptyline HCl (Elavil) 25 mg QHS PO Last administered on 12/15/18 20:00; Start 12/14/18 at 21:00 Alprazolam (Xanax) 0.5 mg PRN Q8HRS PRN PO ANXIETY / AGITATION Last administered on 12/16/18 04:03; Start 12/14/18 at 11:15 Morphine Sulfate (Morphine Sulfate) 2 mg PRN Q2HR PRN IV PAIN MILD Last administered on 12/14/18at 12:44; Start 12/14/18 at 12:45; Stop 12/14/18 at 13:02 ; Status DC Zolpidem Tartrate (Ambien) 5 mg PRN QHS PRN PO INSOMNIA Last administered on 20:00; Start 12/14/18 at 12:45 Albuterol/ Ipratropium (Duoneb) 3 ml RTQID NEB ; Start 12/14/18 at 16:00; Stop 12/15/18 at 08:01; Status Cancel Morphine Sulfate (Morphine Sulfate) 4 mg PRN Q2HR PRN IV PAIN MILD Last administered on 12/14/18at 13:00; Start 12/14/18 at 13:15; Stop 12/14/18 at 13:40 ; Status DC Fentanyl Citrate (Fentanyl 2ml Vial) 50 mcg PRN Q2HRS PRN IV PAIN Last administered on 12/16/18at 10:07; Start 12/14/18 at 13:45 Lorazepam (Ativan) 1 mg PRN Q4HRS PRN IV ANXIETY / AGITATION Last administered on 12/16/18at 10:08; Start 12/14/18 at 16:15 Piperacillin Sod/ Tazobactam Sod 3.375 gm/Sodium Chloride 50 ml @ 100 mls/hr Q6HRS IV Last administered on 12/16/18at 06:00; Start 12/14/18 at 20:00 Active Scripts Active Augmentin 500-125 Tablet (Amoxicillin/Potassium Clav) 1 Each Tablet 1 Tab PO BID Ativan (Lorazepam) 0.5 Mg Tablet 0.5 Mg PO TID PRN MDD 1 Reglan (Metoclopramide Hcl) 10 Mg Tablet 1 Tab PO TID Klor-Con M20 (Potassium Chloride) 20 Meq Tab.er.prt 40 Meq PO BID MDD 1 7 Days Amitriptyline Hcl 25 Mg Tablet 25 Mg PO QHS MDD 1 Percocet 5-325 Mg Tablet (Oxycodone/Acetaminophen) 1 Each Tablet 1 Tab PO PRN Q4HRS PRN MDD 1 Ondansetron Odt (Ondansetron) 4 Mg Tab.rapdis 1 Tab PO PRN Q6-8HRS PRN MDD 1 Capsaicin 60 Gm Cream..g. 1 Matt TP TID PRN PRN Pepcid (Famotidine) 20 Mg Tablet 20 Mg PO BID Capsaicin 60 Gm Cream..g. 1 Matt TP TID PRN PRN Pepcid (Famotidine) 20 Mg Tablet 20 Mg PO BID Phenergan (Promethazine HCl) 25 Mg Supp.rect 25 Mg RC Q8HRS PRN Vitals/I & O Vital Sign - Last 24 Hours 12/15/18 12/15/18 12/15/18 12/15/18 15:03 15:56 17:55 18:49 Temp 99.0 97.6 99.0 97.6 Pulse 115 106 Resp 20 16 B/P (MAP) 103/65 (78) 100/60 (73) Pulse Ox 96 96 O2 Delivery Room Air Room Air Room Air Room Air 12/15/18 12/15/18 12/15/18 12/15/18 19:00 20:01 22:02 23:00 Temp 98.0 98.0 Pulse 102 Resp 18 17 16 B/P (MAP) 110/71 (84) Pulse Ox 96 96 98 O2 Delivery Room Air Room Air Room Air Room Air 12/16/18 12/16/18 12/16/18 12/16/18 00:01 02:07 02:35 04:03 Temp 98.0 98.0 Pulse 85 Resp 16 17 16 17 B/P (MAP) 101/65 (77) Pulse Ox 98 98 97 97 O2 Delivery Room Air Room Air Room Air Room Air 12/16/18 12/16/18 12/16/18 12/16/18 06:00 07:00 08:00 08:03 Temp 97.5 97.5 Pulse 84 Resp 18 16 16 B/P (MAP) 90/48 (62) Pulse Ox 97 99 99 O2 Delivery Room Air Room Air Room Air Room Air 12/16/18 12/16/18 12/16/18 10:07 10:40 11:00 Temp 97.7 97.7 Pulse 102 Resp 17 17 18 B/P (MAP) 115/78 (90) Pulse Ox 99 99 99 O2 Delivery Room Air Room Air Room Air Intake and Output 12/15/18 12/15/18 12/16/18 15:00 23:00 07:00 Intake Total 680 ml 200 ml 50 ml Balance 680 ml 200 ml 50 ml RICK HUNTER MD Dec 16, 2018 11:54
[2018-12-16] MEDS ORDERED: diphenhydrAMINE 50 MG/ML VIAL IVP PRN (12:15)
[2018-12-16] MEDS ORDERED: ZIPRASIDONE 20 MG CAPSULE PO ONE (12:30)
--- NOTE | 2018-12-16 12:48 | NUR ---
SW following pt. Spoke with [facility], and pt is still SI needs to continue with 1:1 observation. [facility]erral [facility]. Spoke with Britney at [facility] who reported their physician has declined to admit pt stating they do not have the capability to meet pt's needs. [facility] from PAT team will f/u with [facility] as well. Acceptance and admission to [facility] pending. Other facilities are at capacity at this time. Will continue to follow.
[2018-12-16 15:00] VITALS: BP 95/55
[2018-12-16] MEDS: oxyCODONE/APAP 5/325 1 TAB TABLET PO PRN ×2 (16:09→20:44)
--- NOTE | 2018-12-16 16:30 | NUR ---
Patient complained of abdominal pain, 07/27, gave prn Percocet as ordered. She became restless when she was told that her other pain medication, fentanyl has a new schedule. The patient was educated about action and timing of pain medicines. When asked about the pain, patient said that it is a sharp sometimes burning pain that is worsened by her anxiety. Patient became calm after few minutes; will continue to monitor.
[2018-12-16 19:00] VITALS: BP 111/63
[2018-12-16] MEDS: AMITRIPTYLINE HCL 25 MG TABLET. PO SCH (20:43)
[2018-12-16] MEDS: AMOXICILLIN/K CLAV 875/125MG TABLET. PO SCH (20:43)
[2018-12-16] MEDS: ZOLPIDEM 5 MG TABLET. PO PRN (23:01)
[2018-12-16 23:07] VITALS: BP 108/26
[2018-12-17 03:00] VITALS: BP 92/58
[2018-12-17] MEDS: oxyCODONE/APAP 5/325 1 TAB TABLET PO PRN ×3 (04:06→20:05)
--- NOTE | 2018-12-17 06:59 | PDOC ---
Infectious Disease Note Subjective Subjective sleepy ROS ROS no n/v/d/sob per nursing Vital Sign Vital Signs Vital Signs Date Time Temp Pulse Resp B/P (MAP) Pulse Ox O2 Delivery O2 Flow Rate FiO2 12/17/18 05:06 96 Room Air 12/17/18 03:00 97.9 102 16 92/58 (69) 97.9 Physical Exam PHYSICAL EXAM GENERAL: Alert, oriented female, who is not in any distress. VITAL SIGNS: Stable, afebrile. HEENT: NAD. NECK: Supple, no JVP, no lymphadenopathy. LUNGS: Clear. HEART: S1, S2 regular. ABDOMEN: Not distended. She subjectively says it hurts, but there is no rebound or guarding when distracted. No organomegaly appreciated. NEUROLOGIC: Intact. SKIN: Unremarkable. Labs Micro Microbiology 12/13/18 Blood Culture - Preliminary, Resulted NO GROWTH AFTER 1 DAY 12/13/18 Urine Culture - Final, Complete 12/13/18 Urine Culture Result 1 (JORGE) - Final, Complete Objective Assessment Chronic abd pain Anxiety disorder Possible aspiration Leukocytosis Plan Plan of Care augmentin, ok to d/c supportive care SOPHIA ARELLANO MD Dec 17, 2018 06:59
[2018-12-17 07:00] VITALS: BP 96/63
[2018-12-17] MEDS: LACTOBACILLUS RHAMNOSUS GG 1 CAPSULE. PO SCH ×2 (08:02→19:49)
[2018-12-17] MEDS: AMOXICILLIN/K CLAV 875/125MG TABLET. PO SCH ×2 (08:02→19:49)
[2018-12-17] MEDS: fentaNYL PF VIAL 100 MCG/2 ML VIAL IV PRN (08:03)
[2018-12-17 11:00] VITALS: BP 96/55
[2018-12-17] MEDS ORDERED: fentaNYL 12MCG/HR PATCH 1 PATCH PATCH.TD72 TD SCH (12:30)
--- NOTE | 2018-12-17 13:30 | PDOC ---
PROGRESS NOTES Chief Complaint Chief Complaint Cyclic vomiting syndrome- acute on chronic Depression NOS Suicidal ideation- on 1:1 obs PNEUMONIA POSSIBLE ASPIRATION AK I VMN-resolved acute on chronic abdominal pain, History of Present Illness History of Present Illness complains of pain every time,. has asked for IV meds whenever avail, tapered yesterday and she is not happy she asked for fentanyl patch as that has worked before, very difficult situation with suicidal patient, complains of severe pain in abdomen, and wants repeated IV pain meds, discussed problems with patient, Vitals Vitals Vital Signs Date Time Temp Pulse Resp B/P (MAP) Pulse Ox O2 Delivery O2 Flow Rate FiO2 12/17/18 12:03 Room Air 12/17/18 11:00 97.9 100 17 96/55 (69) 99 97.9 Physical Exam Physical Exam GENERAL: Alert, oriented female, who is not in any distress. VITAL SIGNS: Stable, afebrile. HEENT: NAD. NECK: Supple, no JVP, no lymphadenopathy. LUNGS: Clear. HEART: S1, S2 regular. ABDOMEN: Not distended. She subjectively says it hurts, but there is no rebound or guarding when distracted. No organomegaly appreciated. NEUROLOGIC: Intact. SKIN: Unremarkable. General: Alert, Cooperative, mild distress Lungs: Clear, Other Abdomen: Normal bowel sounds, Soft Extremities: No cyanosis, No edema Assessment and Plan Assessmemt and Plan Problems Medical Problems: (1) Cyclic vomiting syndrome Status: Acute (2) HCAP (healthcare-associated pneumonia) Status: Acute Comment Review of Relevant I have reviewed the following items miguel (where applicable) has been applied. Labs Microbiology 12/13/18 Blood Culture - Preliminary, Resulted NO GROWTH AFTER 4 DAYS 12/13/18 Urine Culture - Final, Complete 12/13/18 Urine Culture Result 1 (JORGE) - Final, Complete Medications Current Medications Ketamine HCl (Ketamine) 25 mg 1X ONCE IM Last administered on 12/13/18at 12:54 ; Start 12/13/18 at 12:45; Stop 12/13/18 at 12:46; Status DC Ketorolac Tromethamine (Toradol Im) 60 mg 1X ONCE IM Last administered on 12/13at 12:54; Start 12/13/18 at 12:45; Stop 12/13/18 at 12:46; Status DC Piperacillin Sod/ Tazobactam Sod 3.375 gm/Sodium Chloride 50 ml @ 100 mls/hr 1X ONCE IV Last administered on 12/13/18at 13:36; Start 12/13/18 at 13:00; Stop 12/13/18 at 13:29; Status DC Sodium Chloride 1,000 ml @ 1,000 mls/hr 1X ONCE IV Last administered on at 13:38; Start 12/13/18 at 13:15; Stop 12/13/18 at 14:14; Status DC Ondansetron HCl (Zofran) 4 mg PRN Q8HRS PRN IV NAUSEA/VOMITING; Start 12/13/18 at 13:15; Stop 12/14/18 at 09:08; Status DC Sodium Chloride 1,000 ml @ 100 mls/hr Q10H IV Last administered on 12/14/18at 10:44; Start 12/13/18 at 13:11; Stop 12/14/18 at 13:10; Status DC Vancomycin HCl (Vanco Per Pharmacy) 1 each PRN DAILY PRN MC SEE COMMENTS Last administered on 12/13/18at 16:11; Start 12/13/18 at 13:15; Stop 12/14/18 at 10:07 ; Status DC Levofloxacin/ Dextrose (Levaquin Per Pharmacy) 1 each PRN DAILY PRN MC SEE COMMENTS; Start 12/13/18 at 13:15; Status Cancel Vancomycin HCl 1.75 gm/Sodium Chloride 500 ml @ 250 mls/hr 1X ONCE IV Last administered on 12/13/18at 15:51; Start 12/13/18 at 14:00; Stop 12/13/18 at 15:59 ; Status DC Levofloxacin/ Dextrose 150 ml @ 100 mls/hr Q24H IV Last administered on at 14:18; Start 12/13/18 at 13:00; Stop 12/14/18 at 10:05; Status DC Acetaminophen (Tylenol) 650 mg PRN Q6HRS PRN PO pain Last administered on at 16:12; Start 12/13/18 at 16:00 Lactobacillus Rhamnosus (Culturelle) 1 cap BID PO Last administered on 08:02; Start 12/13/18 at 21:00 Vancomycin HCl 1 gm/Sodium Chloride 250 ml @ 250 mls/hr Q8H IV Last administered on 12/14/18at 09:41; Start 12/14/18 at 00:00; Stop 12/14/18 at 10:05 ; Status DC Vancomycin HCl (Vancomycin Trough Level) 1 each 1X ONCE MC ; Start 12/14/18 at 15:30; Stop 12/14/18 at 15:31; Status Cancel Ketorolac Tromethamine (Toradol 30mg Vial) 30 mg PRN Q6HRS PRN IV INFLAMMATION Last administered on 12/14/18at 08:40; Start 12/13/18 at 18:15; Stop 12/18/18 at 18:14 Ondansetron HCl (Zofran) 4 mg PRN Q6HRS PRN IV NAUSEA/VOMITING; Start 12/14/18 at 09:15; Stop 12/16/18 at 14:35; Status DC Amitriptyline HCl (Elavil) 25 mg QHS PO Last administered on 12/16/18at 20:43; Start 12/14/18 at 21:00 Alprazolam (Xanax) 0.5 mg PRN Q8HRS PRN PO ANXIETY / AGITATION Last administered on 12/16/18at 20:43; Start 12/14/18 at 11:15 Morphine Sulfate (Morphine Sulfate) 2 mg PRN Q2HR PRN IV PAIN MILD Last administered on 12/14/18at 12:44; Start 12/14/18 at 12:45; Stop 12/14/18 at 13:02 ; Status DC Zolpidem Tartrate (Ambien) 5 mg PRN QHS PRN PO INSOMNIA Last administered on 12/16/18at 23:01; Start 12/14/18 at 12:45 Albuterol/ Ipratropium (Duoneb) 3 ml RTQID NEB ; Start 12/14/18 at 16:00; Stop 12/15/18 at 08:01; Status Cancel Morphine Sulfate (Morphine Sulfate) 4 mg PRN Q2HR PRN IV PAIN MILD Last administered on 12/14/18at 13:00; Start 12/14/18 at 13:15; Stop 12/14/18 at 13:40 ; Status DC Fentanyl Citrate (Fentanyl 2ml Vial) 50 mcg PRN Q2HRS PRN IV PAIN Last administered on 12/16/18at 14:02; Start 12/14/18 at 13:45; Stop 12/16/18 at 14:33; Status DC Lorazepam (Ativan) 1 mg PRN Q4HRS PRN IV ANXIETY / AGITATION Last administered on 12/16/18at 10:08; Start 12/14/18 at 16:15; Stop 12/16/18 at 14:33; Status DC Piperacillin Sod/ Tazobactam Sod 3.375 gm/Sodium Chloride 50 ml @ 100 mls/hr Q6HRS IV Last administered on 12/16/18at 12:19; Start 12/14/18 at 20:00; Stop 12/16/18 at 14:33; Status DC Lorazepam (Ativan) 2 mg PRN Q4HRS PRN IV ANXIETY / AGITATION Last administered on 12/17/18 12:02; Start 12/16/18 at 12:15 Ziprasidone (Geodon) 20 mg 1X ONCE PO ; Start 12/16/18 at 12:30; Stop 12/16/18 at 14:33; Status DC Diphenhydramine HCl (Benadryl) 25 mg PRN Q6HRS PRN IVP ITCHING; Start 12/16/18 at 12:15 Fentanyl Citrate (Fentanyl 2ml Vial) 50 mcg PRN Q6HRS PRN IV PAIN Last administered on 12/17/18 08:03; Start 12/16/18 at 14:45 Amoxicillin/ Clavulanate Potassium (Augmentin 875/ 125mg) 1 tab BID PO Last administered on 12/17/18 08:02; Start 12/16/18 at 21:00 Lorazepam (Ativan) 1 mg PRN Q6HRS PRN PO ANXIETY / AGITATION; Start 12/16/18 at 14:45 Ondansetron HCl (Zofran Odt) 4 mg PRN Q8HRS PRN PO NAUSEA/VOMITING; Start at 14:45 Oxycodone/ Acetaminophen (Percocet 5/325) 1 tab PRN Q4HRS PRN PO PAIN Last administered on 12/17/18 04:06; Start 12/16/18 at 14:45 Fentanyl (Duragesic 12mcg/ Hr Patch) 1 patch Q3DAYS TD Last administered on 3/2 /19at 12:03; Start 12/17/18 at 12:30 Active Scripts Active Augmentin 500-125 Tablet (Amoxicillin/Potassium Clav) 1 Each Tablet 1 Tab PO BID Ativan (Lorazepam) 0.5 Mg Tablet 0.5 Mg PO TID PRN MDD 1 Reglan (Metoclopramide Hcl) 10 Mg Tablet 1 Tab PO TID Klor-Con M20 (Potassium Chloride) 20 Meq Tab.er.prt 40 Meq PO BID MDD 1 7 Days Amitriptyline Hcl 25 Mg Tablet 25 Mg PO QHS MDD 1 Percocet 5-325 Mg Tablet (Oxycodone/Acetaminophen) 1 Each Tablet 1 Tab PO PRN Q4HRS PRN MDD 1 Ondansetron Odt (Ondansetron) 4 Mg Tab.rapdis 1 Tab PO PRN Q6-8HRS PRN MDD 1 Capsaicin 60 Gm Cream..g. 1 Matt TP TID PRN PRN Pepcid (Famotidine) 20 Mg Tablet 20 Mg PO BID Capsaicin 60 Gm Cream..g. 1 Matt TP TID PRN PRN Pepcid (Famotidine) 20 Mg Tablet 20 Mg PO BID Phenergan (Promethazine HCl) 25 Mg Supp.rect 25 Mg RC Q8HRS PRN Vitals/I & O Vital Sign - Last 24 Hours 12/16/18 12/16/18 12/16/18 12/16/18 14:02 15:00 16:09 16:19 Temp 98.5 98.5 Pulse 104 Resp 16 16 B/P (MAP) 95/55 (68) Pulse Ox 95 95 95 O2 Delivery Room Air Room Air Room Air Room Air 12/16/18 12/16/18 12/16/18 12/16/18 16:50 17:10 19:00 20:06 Temp 98.1 98.1 Pulse 102 Resp 17 16 B/P (MAP) 111/63 (79) Pulse Ox 96 O2 Delivery Room Air Room Air 12/16/18 12/16/18 12/16/18 12/16/18 20:44 23:01 23:07 23:31 Temp 97.9 97.9 Pulse 102 Resp 14 B/P (MAP) 108/26 (53) Pulse Ox 96 96 96 96 O2 Delivery Room Air Room Air Room Air 12/17/18 12/17/18 12/17/18 12/17/18 03:00 04:06 05:06 07:00 Temp 97.9 97.7 97.9 97.7 Pulse 102 90 Resp 16 17 B/P (MAP) 92/58 (69) 96/63 (74) Pulse Ox 96 96 96 97 O2 Delivery Room Air Room Air Room Air Room Air 12/17/18 12/17/18 12/17/18 12/17/18 08:00 08:03 08:33 11:00 Temp 97.9 97.9 Pulse 100 Resp 17 B/P (MAP) 96/55 (69) Pulse Ox 99 O2 Delivery Room Air Room Air Room Air Room Air 12/17/18 12:03 O2 Delivery Room Air Intake and Output 12/16/18 12/16/18 12/17/18 14:59 22:59 06:59 Intake Total 720 ml 640 ml 200 ml Output Total 700 ml Balance 720 ml 640 ml -500 ml RICK HUNTER MD Dec 17, 2018 13:30
[2018-12-17 15:00] VITALS: BP 107/65
[2018-12-17 19:00] VITALS: BP 104/61
[2018-12-17] MEDS: AMITRIPTYLINE HCL 25 MG TABLET. PO SCH (19:49)
[2018-12-17] MEDS: LORazepam 1 MG TABLET PO PRN (20:04)
[2018-12-17] MEDS: ZOLPIDEM 5 MG TABLET. PO PRN (20:04)
[2018-12-17] MEDS: ALPRAZolam 0.5 MG TABLET PO PRN (20:04)
[2018-12-17 22:46] VITALS: BP 98/57
[2018-12-18] MEDS: oxyCODONE/APAP 5/325 1 TAB TABLET PO PRN ×6 (00:08→20:07)
[2018-12-18 03:00] VITALS: BP 100/54
[2018-12-18] MEDS: ALPRAZolam 0.5 MG TABLET PO PRN ×3 (04:03→20:06)
[2018-12-18] MEDS: LORazepam 1 MG TABLET PO PRN ×3 (06:07→17:53)
[2018-12-18 07:00] VITALS: BP 106/74
[2018-12-18] MEDS: LACTOBACILLUS RHAMNOSUS GG 1 CAPSULE. PO SCH ×2 (08:08→20:06)
[2018-12-18] MEDS: AMOXICILLIN/K CLAV 875/125MG TABLET. PO SCH ×2 (08:09→20:06)
--- NOTE | 2018-12-18 10:13 | NUR ---
Behavioral Note: Pt awoke from a nap about an hour following administration of pain medication requesting anxiety medication. Informed that medication is not available until 1200. Pt states, "that is so far away!" ad whined, tossing restlessly in bed. She asked to use her cell phone and when notified that she may not use it while she is on suicide watch, she slammed her fist on the bedside table and yelled, "What am I going to do, slit my wrists with a cell phone?!" At this time pt continues to rest with eyes closed.
--- NOTE | 2018-12-18 10:52 | PDOC ---
Infectious Disease Note Subjective Subjective c/o anxiety 1:1 observation No F/C/S/N/V/D/cough/SOA ROS ROS per HPI Vital Sign Vital Signs Vital Signs Date Time Temp Pulse Resp B/P (MAP) Pulse Ox O2 Delivery O2 Flow Rate FiO2 12/18/18 07:00 95.4 86 106/74 (85) 95 Room Air 95.4 12/18/18 05:12 16 Physical Exam PHYSICAL EXAM GENERAL: Resting quietly HEENT: Oral cavity clear NECK: Supple, no JVP, no lymphadenopathy. LUNGS: Clear. HEART: S1, S2 regular. ABDOMEN: Soft and nontender NEUROLOGIC: Arouses to name, responds appropriately SKIN: warm without rash PIV ok Labs Micro Microbiology 12/13/18 Blood Culture - Preliminary, Resulted NO GROWTH AFTER 4 DAYS 12/13/18 Urine Culture - Final, Complete 12/13/18 Urine Culture Result 1 (JORGE) - Final, Complete Objective Assessment Chronic abd pain Anxiety disorder Possible aspiration Leukocytosis Plan Plan of Care Augmentin, ok to d/c supportive care D/w nursing Attending Co-Sign The patient was seen and interviewed as well as examined at the bedside. The chart was reviewed. The case was discussed. Agree with the plan of care. RHONDA MENDEZ APRN Dec 18, 2018 10:52 SOPHIA ARELLANO MD Dec 18, 2018 11:33
[2018-12-18 11:00] VITALS: BP 108/79
[2018-12-18] MEDS: ONDANSETRON ODT 4 MG TAB.RAPDIS. PO PRN (11:59)
--- NOTE | 2018-12-18 12:52 | PDOC ---
PROGRESS NOTES Chief Complaint Chief Complaint Cyclic vomiting syndrome- acute on chronic Depression NOS Suicidal ideation- on 1:1 obs PNEUMONIA POSSIBLE ASPIRATION AK I VMN-resolved acute on chronic abdominal pain, History of Present Illness History of Present Illness pain much better ,likes the fent patch, eating better still complains of marked anxiety but looks very calm Vitals Vitals Vital Signs Date Time Temp Pulse Resp B/P (MAP) Pulse Ox O2 Delivery O2 Flow Rate FiO2 12/18/18 11:00 96.9 76 18 108/79 (89) 96 Room Air 96.9 Physical Exam Physical Exam General: Alert, Cooperative, No acute distress Heart: No murmurs Lungs: Other Abdomen: Other Extremities: No cyanosis, No edema Skin: No rashes, No significant lesion Review of Systems Review of Systems no nv.d. + anxiety Assessment and Plan Assessmemt and Plan Problems Medical Problems: (1) Cyclic vomiting syndrome Status: Acute (2) HCAP (healthcare-associated pneumonia) Status: Acute Comment Review of Relevant I have reviewed the following items miguel (where applicable) has been applied. Labs Microbiology 12/13/18 Blood Culture - Preliminary, Resulted NO GROWTH AFTER 4 DAYS 12/13/18 Urine Culture - Final, Complete 12/13/18 Urine Culture Result 1 (JORGE) - Final, Complete Medications Current Medications Ketamine HCl (Ketamine) 25 mg 1X ONCE IM Last administered on 12/13/18at 12:54 ; Start 12/13/18 at 12:45; Stop 12/13/18 at 12:46; Status DC Ketorolac Tromethamine (Toradol Im) 60 mg 1X ONCE IM Last administered on 12/13at 12:54; Start 12/13/18 at 12:45; Stop 12/13/18 at 12:46; Status DC Piperacillin Sod/ Tazobactam Sod 3.375 gm/Sodium Chloride 50 ml @ 100 mls/hr 1X ONCE IV Last administered on 12/13/18at 13:36; Start 12/13/18 at 13:00; Stop 12/13/18 at 13:29; Status DC Sodium Chloride 1,000 ml @ 1,000 mls/hr 1X ONCE IV Last administered on at 13:38; Start 12/13/18 at 13:15; Stop 12/13/18 at 14:14; Status DC Ondansetron HCl (Zofran) 4 mg PRN Q8HRS PRN IV NAUSEA/VOMITING; Start 12/13/18 at 13:15; Stop 12/14/18 at 09:08; Status DC Sodium Chloride 1,000 ml @ 100 mls/hr Q10H IV Last administered on 12/14/18at 10:44; Start 12/13/18 at 13:11; Stop 12/14/18 at 13:10; Status DC Vancomycin HCl (Vanco Per Pharmacy) 1 each PRN DAILY PRN MC SEE COMMENTS Last administered on 12/13/18at 16:11; Start 12/13/18 at 13:15; Stop 12/14/18 at 10:07 ; Status DC Levofloxacin/ Dextrose (Levaquin Per Pharmacy) 1 each PRN DAILY PRN MC SEE COMMENTS; Start 12/13/18 at 13:15; Status Cancel Vancomycin HCl 1.75 gm/Sodium Chloride 500 ml @ 250 mls/hr 1X ONCE IV Last administered on 12/13/18at 15:51; Start 12/13/18 at 14:00; Stop 12/13/18 at 15:59 ; Status DC Levofloxacin/ Dextrose 150 ml @ 100 mls/hr Q24H IV Last administered on at 14:18; Start 12/13/18 at 13:00; Stop 12/14/18 at 10:05; Status DC Acetaminophen (Tylenol) 650 mg PRN Q6HRS PRN PO TEMP/HEADACHE Last administered on 12/13/18 16:12; Start 12/13/18 at 16:00 Lactobacillus Rhamnosus (Culturelle) 1 cap BID PO Last administered on at 08:08; Start 12/13/18 at 21:00 Vancomycin HCl 1 gm/Sodium Chloride 250 ml @ 250 mls/hr Q8H IV Last administered on 12/14/18at 09:41; Start 12/14/18 at 00:00; Stop 12/14/18 at 10:05 ; Status DC Vancomycin HCl (Vancomycin Trough Level) 1 each 1X ONCE MC ; Start 12/14/18 at 15:30; Stop 12/14/18 at 15:31; Status Cancel Ketorolac Tromethamine (Toradol 30mg Vial) 30 mg PRN Q6HRS PRN IV INFLAMMATION Last administered on 12/14/18at 08:40; Start 12/13/18 at 18:15; Stop 12/18/18 at 18:14 Ondansetron HCl (Zofran) 4 mg PRN Q6HRS PRN IV NAUSEA/VOMITING; Start 12/14/18 at 09:15; Stop 12/16/18 at 14:35; Status DC Amitriptyline HCl (Elavil) 25 mg QHS PO Last administered on 12/17/18 19:49; Start 12/14/18 at 21:00 Alprazolam (Xanax) 0.5 mg PRN Q8HRS PRN PO ANXIETY/AGITATION 1ST CHOICE Last administered on 12/18/18 11:58; Start 12/14/18 at 11:15 Morphine Sulfate (Morphine Sulfate) 2 mg PRN Q2HR PRN IV PAIN MILD Last administered on 12/14/18at 12:44; Start 12/14/18 at 12:45; Stop 12/14/18 at 13:02 ; Status DC Zolpidem Tartrate (Ambien) 5 mg PRN QHS PRN PO INSOMNIA Last administered on 20:04; Start 12/14/18 at 12:45 Albuterol/ Ipratropium (Duoneb) 3 ml RTQID NEB ; Start 12/14/18 at 16:00; Stop 12/15/18 at 08:01; Status Cancel Morphine Sulfate (Morphine Sulfate) 4 mg PRN Q2HR PRN IV PAIN MILD Last administered on 12/14/18at 13:00; Start 12/14/18 at 13:15; Stop 12/14/18 at 13:40 ; Status DC Fentanyl Citrate (Fentanyl 2ml Vial) 50 mcg PRN Q2HRS PRN IV PAIN Last administered on 12/16/18 14:02; Start 12/14/18 at 13:45; Stop 12/16/18 at 14:33; Status DC Lorazepam (Ativan) 1 mg PRN Q4HRS PRN IV ANXIETY / AGITATION Last administered on 12/16/18at 10:08; Start 12/14/18 at 16:15; Stop 12/16/18 at 14:33; Status DC Piperacillin Sod/ Tazobactam Sod 3.375 gm/Sodium Chloride 50 ml @ 100 mls/hr Q6HRS IV Last administered on 12/16/18 12:19; Start 12/14/18 at 20:00; Stop 12/16/18 at 14:33; Status DC Lorazepam (Ativan) 2 mg PRN Q4HRS PRN IV ANXIETY / AGITATION Last administered on 12/18/18 02:04; Start 12/16/18 at 12:15 Ziprasidone (Geodon) 20 mg 1X ONCE PO ; Start 12/16/18 at 12:30; Stop 12/16/18 at 14:33; Status DC Diphenhydramine HCl (Benadryl) 25 mg PRN Q6HRS PRN IVP ITCHING; Start 12/16/18 at 12:15 Fentanyl Citrate (Fentanyl 2ml Vial) 50 mcg PRN Q6HRS PRN IV PAIN Last administered on 12/17/18 08:03; Start 12/16/18 at 14:45 Amoxicillin/ Clavulanate Potassium (Augmentin 875/ 125mg) 1 tab BID PO Last administered on 12/18/18 08:09; Start 12/16/18 at 21:00 Lorazepam (Ativan) 1 mg PRN Q6HRS PRN PO ANXIETY/AGITATION 2ND CHOICE Last administered on 12/18/18 11:58; Start 12/16/18 at 14:45 Ondansetron HCl (Zofran Odt) 4 mg PRN Q8HRS PRN PO NAUSEA/VOMITING Last administered on 12/18/18 11:59; Start 12/16/18 at 14:45 Oxycodone/ Acetaminophen (Percocet 5/325) 1 tab PRN Q4HRS PRN PO PAIN Last administered on 12/18/18 11:58; Start 12/16/18 at 14:45 Fentanyl (Duragesic 12mcg/ Hr Patch) 1 patch Q3DAYS TD Last administered on 12/17 12:03; Start 12/17/18 at 12:30 Active Scripts Active Augmentin 500-125 Tablet (Amoxicillin/Potassium Clav) 1 Each Tablet 1 Tab PO BID Ativan (Lorazepam) 0.5 Mg Tablet 0.5 Mg PO TID PRN MDD 1 Reglan (Metoclopramide Hcl) 10 Mg Tablet 1 Tab PO TID Klor-Con M20 (Potassium Chloride) 20 Meq Tab.er.prt 40 Meq PO BID MDD 1 7 Days Amitriptyline Hcl 25 Mg Tablet 25 Mg PO QHS MDD 1 Percocet 5-325 Mg Tablet (Oxycodone/Acetaminophen) 1 Each Tablet 1 Tab PO PRN Q4HRS PRN MDD 1 Ondansetron Odt (Ondansetron) 4 Mg Tab.rapdis 1 Tab PO PRN Q6-8HRS PRN MDD 1 Capsaicin 60 Gm Cream..g. 1 Matt TP TID PRN PRN Pepcid (Famotidine) 20 Mg Tablet 20 Mg PO BID Capsaicin 60 Gm Cream..g. 1 Matt TP TID PRN PRN Pepcid (Famotidine) 20 Mg Tablet 20 Mg PO BID Phenergan (Promethazine HCl) 25 Mg Supp.rect 25 Mg RC Q8HRS PRN Vitals/I & O Vital Sign - Last 24 Hours 12/17/18 12/17/18 12/17/18 12/17/18 15:00 16:18 16:19 19:00 Temp 98.4 94.8 98.4 94.8 Pulse 114 90 Resp 18 18 B/P (MAP) 107/65 (79) 104/61 (75) Pulse Ox 96 O2 Delivery Room Air Room Air Room Air Room Air 12/17/18 12/17/18 12/17/18 12/18/18 20:00 20:05 22:46 00:08 Temp 98.6 98.6 Pulse 77 Resp 18 16 16 B/P (MAP) 98/57 (71) O2 Delivery Room Air Room Air Room Air Room Air 12/18/18 12/18/18 12/18/18 12/18/18 03:00 04:12 05:12 06:58 Temp 97.5 97.5 Pulse 63 Resp 18 18 16 B/P (MAP) 100/54 (69) O2 Delivery Room Air Room Air Room Air Room Air 12/18/18 12/18/18 07:00 11:00 Temp 95.4 96.9 95.4 96.9 Pulse 86 76 Resp 18 B/P (MAP) 106/74 (85) 108/79 (89) Pulse Ox 95 96 O2 Delivery Room Air Room Air Intake and Output 12/17/18 12/17/18 12/18/18 15:00 23:00 07:00 Intake Total 240 ml 240 ml Output Total 250 ml Balance 240 ml -10 ml RICK HUNTER MD Dec 18, 2018 12:52
--- NOTE | 2018-12-18 13:00 | NUR ---
Behavior Note: Pt received a GI soft lunch which was not the advertised lunch on the menu. She became agitated and restless, complaining that dietary never gives her the food she orders and stated, "This is the reason I feel like committing suicide, nothing ever goes right for me." She continues to doze periodically. Requests percocet every 3-4 hours stating her abdominal pain is 10/10. Dr. Vasquez visited patient and she told him her pain was much improved thanks to the fentanyl patch, but that her anxiety is still not adequately managed. Will continue to monitor.
[2018-12-18 15:07] VITALS: BP 98/48
[2018-12-18 18:53] VITALS: BP 105/73
[2018-12-18] MEDS: ZOLPIDEM 5 MG TABLET. PO PRN (20:06)
[2018-12-18] MEDS: AMITRIPTYLINE HCL 25 MG TABLET. PO SCH (20:06)
[2018-12-18 23:00] VITALS: BP 109/81
[2018-12-19] MEDS: oxyCODONE/APAP 5/325 1 TAB TABLET PO PRN ×4 (00:13→12:48)
[2018-12-19 02:54] VITALS: BP 101/74
[2018-12-19] MEDS: ALPRAZolam 0.5 MG TABLET PO PRN ×2 (04:13→14:41)
[2018-12-19] MEDS: LORazepam 1 MG TABLET PO PRN ×2 (05:29→11:50)
[2018-12-19 07:00] VITALS: BP 111/76
--- NOTE | 2018-12-19 08:19 | PDOC ---
PROGRESS NOTES Chief Complaint Chief Complaint Cyclic vomiting syndrome- acute on chronic Depression NOS Suicidal ideation- on 1:1 obs PNEUMONIA POSSIBLE ASPIRATION AK I VMN-resolved acute on chronic abdominal pain, History of Present Illness History of Present Illness Ms. Fernandez is a 23 old cyclic vomiting and chronic abdominal pain returned to hospital for the same. She was on her way to [facility] with psych but she had severe vomiting, anxiety attack hence was brought back to the emergency room and on chest x-ray sounds some findings of aspiration pneumonitis. Initially on Zosyn. Co-managed with ID. Sha for by mouth Augmentin. She is tolerating a diet. Asking for numerous pain medicines namely fentanyl 50 IV every 2 when necessary , transitioned to fentanyl patch with Recently started Elavil to help with cyclic vomiting, however her primary problems were the aspiration pneumonitis, for which pulm and ID were consulted Also benefited from some lorazepam and I have discussed with case management and RSI liaison as well as starting buspar. Discharge disposition to go to psych/addiction facility today Fentanyl patch, lorazepam and Augmentin on chart Difficult conversation with her today still claims suicidal ideation, asking for more IV fentanyl, I have advised her this cannot continue as her pain is at a 2/10 currently. She c/o nausea while eating a significant amount of mashed potatoes in front of me. Sitter at bedside, DC 31. 50% DC education counseling. Vitals Vitals Vital Signs Date Time Temp Pulse Resp B/P (MAP) Pulse Ox O2 Delivery O2 Flow Rate FiO2 12/19/18 07:30 Room Air 12/19/18 07:00 97.7 90 20 111/76 (88) 92 97.7 Physical Exam Physical Exam General: Alert, Cooperative, No acute distress Heart: No murmurs Lungs: Other Abdomen: Other Extremities: No cyanosis, No edema Skin: No rashes, No significant lesion Assessment and Plan Assessmemt and Plan Problems Medical Problems: (1) Cyclic vomiting syndrome Status: Acute (2) HCAP (healthcare-associated pneumonia) Status: Acute Comment Review of Relevant I have reviewed the following items miguel (where applicable) has been applied. Labs Microbiology 12/13/18 Blood Culture - Final, Complete NO GROWTH AFTER 5 DAYS 12/13/18 Urine Culture - Final, Complete 12/13/18 Urine Culture Result 1 (JORGE) - Final, Complete Medications Current Medications Ketamine HCl (Ketamine) 25 mg 1X ONCE IM Last administered on 12/13/18at 12:54 ; Start 12/13/18 at 12:45; Stop 12/13/18 at 12:46; Status DC Ketorolac Tromethamine (Toradol Im) 60 mg 1X ONCE IM Last administered on 12/13at 12:54; Start 12/13/18 at 12:45; Stop 12/13/18 at 12:46; Status DC Piperacillin Sod/ Tazobactam Sod 3.375 gm/Sodium Chloride 50 ml @ 100 mls/hr 1X ONCE IV Last administered on 12/13/18at 13:36; Start 12/13/18 at 13:00; Stop 12/13/18 at 13:29; Status DC Sodium Chloride 1,000 ml @ 1,000 mls/hr 1X ONCE IV Last administered on at 13:38; Start 12/13/18 at 13:15; Stop 12/13/18 at 14:14; Status DC Ondansetron HCl (Zofran) 4 mg PRN Q8HRS PRN IV NAUSEA/VOMITING; Start 12/13/18 at 13:15; Stop 12/14/18 at 09:08; Status DC Sodium Chloride 1,000 ml @ 100 mls/hr Q10H IV Last administered on 12/14/18at 10:44; Start 12/13/18 at 13:11; Stop 12/14/18 at 13:10; Status DC Vancomycin HCl (Vanco Per Pharmacy) 1 each PRN DAILY PRN MC SEE COMMENTS Last administered on 12/13/18at 16:11; Start 12/13/18 at 13:15; Stop 12/14/18 at 10:07 ; Status DC Levofloxacin/ Dextrose (Levaquin Per Pharmacy) 1 each PRN DAILY PRN MC SEE COMMENTS; Start 12/13/18 at 13:15; Status Cancel Vancomycin HCl 1.75 gm/Sodium Chloride 500 ml @ 250 mls/hr 1X ONCE IV Last administered on 12/13/18at 15:51; Start 12/13/18 at 14:00; Stop 12/13/18 at 15:59 ; Status DC Levofloxacin/ Dextrose 150 ml @ 100 mls/hr Q24H IV Last administered on at 14:18; Start 12/13/18 at 13:00; Stop 12/14/18 at 10:05; Status DC Acetaminophen (Tylenol) 650 mg PRN Q6HRS PRN PO TEMP/HEADACHE Last administered on 12/13/18 16:12; Start 12/13/18 at 16:00 Lactobacillus Rhamnosus (Culturelle) 1 cap BID PO Last administered on 20:06; Start 12/13/18 at 21:00 Vancomycin HCl 1 gm/Sodium Chloride 250 ml @ 250 mls/hr Q8H IV Last administered on 12/14/18 09:41; Start 12/14/18 at 00:00; Stop 12/14/18 at 10:05 ; Status DC Vancomycin HCl (Vancomycin Trough Level) 1 each 1X ONCE MC ; Start 12/14/18 at 15:30; Stop 12/14/18 at 15:31; Status Cancel Ketorolac Tromethamine (Toradol 30mg Vial) 30 mg PRN Q6HRS PRN IV INFLAMMATION Last administered on 12/14/18 08:40; Start 12/13/18 at 18:15; Stop 12/18/18 at 18:14; Status DC Ondansetron HCl (Zofran) 4 mg PRN Q6HRS PRN IV NAUSEA/VOMITING; Start 12/14/18 at 09:15; Stop 12/16/18 at 14:35; Status DC Amitriptyline HCl (Elavil) 25 mg QHS PO Last administered on 12/18/18 20:06; Start 12/14/18 at 21:00 Alprazolam (Xanax) 0.5 mg PRN Q8HRS PRN PO ANXIETY/AGITATION 1ST CHOICE Last administered on 12/19/18 04:13; Start 12/14/18 at 11:15 Morphine Sulfate (Morphine Sulfate) 2 mg PRN Q2HR PRN IV PAIN MILD Last administered on 12/14/18 12:44; Start 12/14/18 at 12:45; Stop 12/14/18 at 13:02 ; Status DC Zolpidem Tartrate (Ambien) 5 mg PRN QHS PRN PO INSOMNIA Last administered on 20:06; Start 12/14/18 at 12:45 Albuterol/ Ipratropium (Duoneb) 3 ml RTQID NEB ; Start 12/14/18 at 16:00; Stop 12/15/18 at 08:01; Status Cancel Morphine Sulfate (Morphine Sulfate) 4 mg PRN Q2HR PRN IV PAIN MILD Last administered on 12/14/18at 13:00; Start 12/14/18 at 13:15; Stop 12/14/18 at 13:40 ; Status DC Fentanyl Citrate (Fentanyl 2ml Vial) 50 mcg PRN Q2HRS PRN IV PAIN Last administered on 12/16/18at 14:02; Start 12/14/18 at 13:45; Stop 12/16/18 at 14:33; Status DC Lorazepam (Ativan) 1 mg PRN Q4HRS PRN IV ANXIETY / AGITATION Last administered on 12/16/18at 10:08; Start 12/14/18 at 16:15; Stop 12/16/18 at 14:33; Status DC Piperacillin Sod/ Tazobactam Sod 3.375 gm/Sodium Chloride 50 ml @ 100 mls/hr Q6HRS IV Last administered on 12/16/18at 12:19; Start 12/14/18 at 20:00; Stop 12/16/18 at 14:33; Status DC Lorazepam (Ativan) 2 mg PRN Q4HRS PRN IV ANXIETY / AGITATION Last administered on 12/19/18at 00:12; Start 12/16/18 at 12:15 Ziprasidone (Geodon) 20 mg 1X ONCE PO ; Start 12/16/18 at 12:30; Stop 12/16/18 at 14:33; Status DC Diphenhydramine HCl (Benadryl) 25 mg PRN Q6HRS PRN IVP ITCHING; Start 12/16/18 at 12:15 Fentanyl Citrate (Fentanyl 2ml Vial) 50 mcg PRN Q6HRS PRN IV PAIN Last administered on 12/17/18 08:03; Start 12/16/18 at 14:45 Amoxicillin/ Clavulanate Potassium (Augmentin 875/ 125mg) 1 tab BID PO Last administered on 12/18/18 20:06; Start 12/16/18 at 21:00 Lorazepam (Ativan) 1 mg PRN Q6HRS PRN PO ANXIETY/AGITATION 2ND CHOICE Last administered on 12/19/18at 05:29; Start 12/16/18 at 14:45 Ondansetron HCl (Zofran Odt) 4 mg PRN Q8HRS PRN PO NAUSEA/VOMITING Last administered on 12/18/18at 11:59; Start 12/16/18 at 14:45 Oxycodone/ Acetaminophen (Percocet 5/325) 1 tab PRN Q4HRS PRN PO PAIN Last administered on 12/19/18at 04:13; Start 12/16/18 at 14:45 Fentanyl (Duragesic 12mcg/ Hr Patch) 1 patch Q3DAYS TD Last administered on 12/17at 12:03; Start 12/17/18 at 12:30 Active Scripts Active Augmentin 500-125 Tablet (Amoxicillin/Potassium Clav) 1 Each Tablet 1 Tab PO BID Ativan (Lorazepam) 0.5 Mg Tablet 0.5 Mg PO TID PRN MDD 1 Reglan (Metoclopramide Hcl) 10 Mg Tablet 1 Tab PO TID Klor-Con M20 (Potassium Chloride) 20 Meq Tab.er.prt 40 Meq PO BID MDD 1 7 Days Amitriptyline Hcl 25 Mg Tablet 25 Mg PO QHS MDD 1 Percocet 5-325 Mg Tablet (Oxycodone/Acetaminophen) 1 Each Tablet 1 Tab PO PRN Q4HRS PRN MDD 1 Ondansetron Odt (Ondansetron) 4 Mg Tab.rapdis 1 Tab PO PRN Q6-8HRS PRN MDD 1 Capsaicin 60 Gm Cream..g. 1 Matt TP TID PRN PRN Pepcid (Famotidine) 20 Mg Tablet 20 Mg PO BID Capsaicin 60 Gm Cream..g. 1 Matt TP TID PRN PRN Pepcid (Famotidine) 20 Mg Tablet 20 Mg PO BID Phenergan (Promethazine HCl) 25 Mg Supp.rect 25 Mg RC Q8HRS PRN Vitals/I & O Vital Sign - Last 24 Hours 12/18/18 12/18/18 12/18/18 12/18/18 11:00 15:07 18:53 19:34 Temp 96.9 97.0 98.6 96.9 97.0 98.6 Pulse 76 82 88 Resp 18 16 14 B/P (MAP) 108/79 (89) 98/48 (65) 105/73 (84) Pulse Ox 96 95 97 O2 Delivery Room Air Room Air Room Air Room Air 12/18/18 12/18/18 12/19/18 12/19/18 20:07 23:00 00:13 02:54 Temp 98.7 98.0 98.7 98.0 Pulse 92 84 Resp 20 14 20 16 B/P (MAP) 109/81 (90) 101/74 (83) Pulse Ox 98 96 O2 Delivery Room Air Room Air Room Air Room Air 12/19/18 12/19/18 12/19/18 12/19/18 04:13 05:32 07:00 07:30 Temp 97.7 97.7 Pulse 90 Resp 20 16 20 B/P (MAP) 111/76 (88) Pulse Ox 92 O2 Delivery Room Air Room Air Room Air Room Air Intake and Output 12/18/18 12/18/18 12/19/18 14:59 22:59 06:59 Intake Total 480 ml 420 ml 600 ml Balance 480 ml 420 ml 600 ml YAN NORMAN MD Dec 19, 2018 08:19
[2018-12-19] MEDS: AMOXICILLIN/K CLAV 875/125MG TABLET. PO SCH (08:39)
[2018-12-19] MEDS: LACTOBACILLUS RHAMNOSUS GG 1 CAPSULE. PO SCH (08:39)
--- NOTE | 2018-12-19 08:42 | NUR ---
SW following pt. Pt still 1:1 for SI. Spoke with Leti at [facility] team who reported there were no psych beds over the weekend. María from [facility] team will come in to see pt. Awaiting for a bed to open at [facility] and pt was denied at [facility]. Will continue to follow pt.
--- NOTE | 2018-12-19 09:03 | PDOC ---
Infectious Disease Note Subjective: Subjective c/o anxiety 1:1 observation No F/C/S/N/V/D/cough/SOA some abdo cramping when she is anxiouis awaiting placement ROS: ROS Negative except for above. Vital Signs: Vital Signs Vital Signs Date Time Temp Pulse Resp B/P (MAP) Pulse Ox O2 Delivery O2 Flow Rate FiO2 12/19/18 08:40 20 92 Room Air 12/19/18 07:00 97.7 90 111/76 (88) 97.7 Physical Exam: PHYSICAL EXAM GENERAL: Resting quietly HEENT: Oral cavity clear NECK: Supple, no JVP, no lymphadenopathy. LUNGS: Clear. HEART: S1, S2 regular. ABDOMEN: Soft and nontender NEUROLOGIC: Arouses to name, responds appropriately SKIN: warm without rash PIV ok Medications: Inpatient Meds: Current Medications Medications (Trade) Dose Ordered Sig/Arnaldo Start Time Stop Time Status Last Admin Dose Admin Acetaminophen (Tylenol) 650 mg PRN Q6HRS PRN 12/13/18 16:00 12/13/18 16:12 650 MG Albuterol/ Ipratropium (Duoneb) 3 ml RTQID 12/14/18 16:00 12/15/18 08:01 Cancel Alprazolam (Xanax) 0.5 mg PRN Q8HRS PRN 12/14/18 11:15 12/19/18 04:13 0.5 MG Amitriptyline HCl (Elavil) 25 mg QHS 12/14/18 21:00 12/18/18 20:06 25 MG Amoxicillin/ Clavulanate Potassium (Augmentin 875/ 125mg) 1 tab BID 12/16/18 21:00 12/19/18 08:39 1 TAB Diphenhydramine HCl (Benadryl) 25 mg PRN Q6HRS PRN 12/16/18 12:15 Fentanyl (Duragesic 12mcg/ Hr Patch) 1 patch Q3DAYS 12/17/18 12:30 12/17/18 12:03 1 PATCH Fentanyl Citrate (Fentanyl 2ml Vial) 50 mcg PRN Q6HRS PRN 12/16/18 14:45 12/17/18 08:03 50 MCG Ketamine HCl (Ketamine) 25 mg 1X ONCE 12/13/18 12:45 2/26/19 12:46 DC 12/13/18 12:54 25 MG Ketorolac Tromethamine (Toradol 30mg Vial) 30 mg PRN Q6HRS PRN 12/13/18 18:15 12/18/18 18:14 DC 12/14/18 08:40 30 MG Ketorolac Tromethamine (Toradol Im) 60 mg 1X ONCE 12/13/18 12:45 12/13/18 12:46 DC 12/13/18 12:54 60 MG Lactobacillus Rhamnosus (Culturelle) 1 cap BID 12/13/18 21:00 12/19/18 08:39 1 CAP Levofloxacin/ Dextrose 150 ml @ 100 mls/hr Q24H 12/13/18 13:00 12/14/18 10:05 DC 12/13/18 14:18 100 MLS/HR Levofloxacin/ Dextrose (Levaquin Per Pharmacy) 1 each PRN DAILY PRN 12/13/18 13:15 Cancel Lorazepam (Ativan) 1 mg PRN Q6HRS PRN 12/16/18 14:45 12/19/18 05:29 1 MG Morphine Sulfate (Morphine Sulfate) 4 mg PRN Q2HR PRN 12/14/18 13:15 12/14/18 13:40 DC 12/14/18 13:00 4 MG Ondansetron HCl (Zofran Odt) 4 mg PRN Q8HRS PRN 12/16/18 14:45 12/18/18 11:59 4 MG Ondansetron HCl (Zofran) 4 mg PRN Q6HRS PRN 12/14/18 09:15 12/16/18 14:35 DC Oxycodone/ Acetaminophen (Percocet 5/325) 1 tab PRN Q4HRS PRN 12/16/18 14:45 12/19/18 08:40 1 TAB Piperacillin Sod/ Tazobactam Sod 3.375 gm/Sodium Chloride 50 ml @ 100 mls/hr Q6HRS 12/14/18 20:00 12/16/18 14:33 DC 12/16/18 12:19 100 MLS/HR Sodium Chloride 1,000 ml @ 100 mls/hr Q10H 12/13/18 13:11 12/14/18 13:10 DC 12/14/18 10:44 100 MLS/HR Vancomycin HCl (Vanco Per Pharmacy) 1 each PRN DAILY PRN 12/13/18 13:15 12/14/18 10:07 DC 12/13/18 16:11 1 EACH Vancomycin HCl (Vancomycin Trough Level) 1 each 1X ONCE 12/14/18 15:30 12/14/18 15:31 Cancel Vancomycin HCl 1.75 gm/Sodium Chloride 500 ml @ 250 mls/hr 1X ONCE 12/13/18 14:00 12/13/18 15:59 DC 12/13/18 15:51 250 MLS/HR Vancomycin HCl 1 gm/Sodium Chloride 250 ml @ 250 mls/hr Q8H 12/14/18 00:00 12/14/18 10:05 DC 12/14/18 09:41 250 MLS/HR Ziprasidone (Geodon) 20 mg 1X ONCE 12/16/18 12:30 12/16/18 14:33 DC Zolpidem Tartrate (Ambien) 5 mg PRN QHS PRN 12/14/18 12:45 12/18/18 20:06 5 MG Objective: Assessment: Chronic abd pain Anxiety disorder Possible aspiration Leukocytosis Plan: Plan of Care Livanin, ok to d/c supportive care D/w nursing GRAY ARELLANO MD Dec 19, 2018 09:03
[2018-12-19 11:00] VITALS: BP 94/58
--- NOTE | 2018-12-19 11:18 | NUR ---
FRANK following pt. Spoke with Betty from PAT team. Referral faxed to [facility]. Pt admission and acceptance pending. Discussed with Physician.
[2018-12-19] MEDS ORDERED: busPIRone 5 MG TABLET. PO PRN (12:45)
[2018-12-19] MEDS: ONDANSETRON ODT 4 MG TAB.RAPDIS. PO PRN (12:48)
--- NOTE | 2018-12-19 13:12 | NUR ---
FRANK following pt. FRANK received a phone call from [place] from [facility] called requesting to talk with pt. FRANK provided nursing station number. Acceptance pending. Will continue to follow.
[2018-12-19] MEDS ORDERED: OXYC1TAB15 PO (14:14)
[2018-12-19] MEDS ORDERED: FENT1PAT13 TD (14:14)
[2018-12-19] MEDS ORDERED: BUSP5TAB PO (14:14)
[2018-12-19] MEDS ORDERED: ZOLP5TAB PO (14:14)
[2018-12-19] MEDS ORDERED: LACT1CAP19 PO (14:14)
--- NOTE | 2018-12-19 14:22 | DISCH ---
DISCHARGE DISCHARGE INFORMATION: DISCHARGE DATE: Dec 15, 2018 FINAL DIAGNOSIS Problems Medical Problems: (1) Cyclic vomiting syndrome Status: Acute (2) HCAP (healthcare-associated pneumonia) Status: Acute CONDITION ON DISCHARGE: Stable CODE STATUS: Code Status: Full POST DISCHARGE ORDERS: ACTIVITY ORDERS: Activity as tolerated WEIGHT BEARING STATUS: As tolerated DIET AFTER DISCHARGE: Regular WOUND/INCISION CARE: No wound care needed CHECKS AFTER DISCHARGE: CHECKS AFTER DISCHARGE: Check blood press - daily FOLLOW-UP: PHYSICIAN FOLLOW-UP: PSYCHIATRY TREATMENT/EQUIPMENT ORDERS: ADAPTIVE EQUIPMENT NEEDED: None DISCHARGE MEDICATIONS: Home Meds Active Scripts Buspirone Hcl (BUSPIRONE HCL) 5 Mg Tablet, 5 MG PO PRN TID PRN for anxiety for 30 Days, #90 TAB Prov:YAN NORMAN MD 12/19/18 Lactobacillus Rhamnosus Gg (CULTURELLE) 1 Each Cap.sprink, 1 CAP PO BID for Diarrhea for 14 Days, #28 CAP Prov:YAN NORMAN MD 12/19/18 Zolpidem Tartrate (AMBIEN) 5 Mg Tablet, 5 MG PO PRN QHS PRN for INSOMNIA for 15 Days, #15 TAB Prov:YAN NORMAN MD 12/19/18 Fentanyl (FENTANYL 12mcg/hr) 1 Each Patch.td72, 1 PATCH TD Q3DAYS for Chronic Pain for 30 Days, #10 PATCH Prov:YAN NORMAN MD 12/19/18 Oxycodone/Apap 5-325 (PERCOCET 5-325 MG TABLET ) 1 Each Tablet, 1 TAB PO PRN Q6HRS PRN for PAIN MDD 1 for 6 Days, #20 TAB Prov:YAN NORMAN MD 12/19/18 Amoxicillin/Potassium Clav (AUGMENTIN 500-125 TABLET) 1 Each Tablet, 1 TAB PO BID for vomiting, #14 TAB Prov:GEOVANNI PENNINGTON MD 12/15/18 Lorazepam (ATIVAN) 0.5 Mg Tablet, 0.5 MG PO TID PRN for ANXIETY MDD 1, #30 TAB Prov:GEOVANNI PENNINGTON MD 12/15/18 Metoclopramide Hcl (REGLAN) 10 Mg Tablet, 1 TAB PO TID for gastroparesis, #60 TAB Prov:GEOVANNI PENNINGTON MD 12/12/18 Potassium Chloride (KLOR-CON M20) 20 Meq Tab.er.prt, 40 MEQ PO BID for low K MDD 1 for 7 Days, #28 TAB.SR Prov:GEOVANNI PENNINGTON MD 12/12/18 Amitriptyline Hcl (AMITRIPTYLINE HCL) 25 Mg Tablet, 25 MG PO QHS for depression MDD 1, #30 TAB Prov:GEOVANNI PENNINGTON MD 12/12/18 Ondansetron (ONDANSETRON ODT) 4 Mg Tab.rapdis, 1 TAB PO PRN Q6-8HRS PRN for VOMITING MDD 1, #16 TAB Prov:GEOVANNI PENNINGTON MD 12/12/18 Capsaicin (CAPSAICIN) 60 Gm Cream..g., 1 ADAM TP TID PRN PRN for PAIN, #1 TUBE Prov:ANGELINA MASSEY DO 12/09/18 Famotidine (PEPCID) 20 Mg Tablet, 20 MG PO BID, #20 TAB Prov:ANGELINA MASSEY DO 12/03/18 Promethazine HCl (Phenergan) 25 Mg Supp.rect, 25 MG RC Q8HRS PRN for NAUSEA/ VOMITING, #14 SUPP.RECT Prov:ANGELINA MASSEY DO 12/03/18 Discontinued Scripts Famotidine (PEPCID) 20 Mg Tablet, 20 MG PO BID, #14 TAB Prov:ANGELINA MASSEY DO 12/09/18 Capsaicin (CAPSAICIN) 60 Gm Cream..g., 1 ADAM TP TID PRN PRN for PAIN, #1 EACH Prov:ANGELINA MASSEY DO 12/03/18 Lorazepam (ATIVAN) 0.5 Mg Tablet, 0.5 MG PO TID PRN for ANXIETY, #10 TAB Prov:ANGELINA MASSEY DO 12/09/18 YAN NORMAN MD Dec 19, 2018 14:22
--- NOTE | 2018-12-19 14:27 | PDOC3 ---
Discharge Summary Visit Information Date of Admission: Dec 13, 2018 Date of Discharge: Dec 19, 2018 Admitting Diagnosis: Cyclic vomiting, aspiration pneumonia Final Diagnosis Problems Medical Problems: (1) Cyclic vomiting syndrome Status: Acute (2) HCAP (healthcare-associated pneumonia) Status: Acute Brief Hospital Course Allergies Allergies Coded Allergies Type Severity Reaction Last Updated Verified coconut Allergy Severe Anaphylaxis 01/22/17 Yes Vital Signs Vital Signs Date Time Temp Pulse Resp B/P (MAP) Pulse Ox O2 Delivery O2 Flow Rate FiO2 12/19/18 13:48 20 97 Room Air 12/19/18 11:00 95.7 98 94/58 (70) 95.7 Brief Hospital Course 23-year-old female well known to this hospital with history of cannabis hyperemesis syndrome and chronic abdominal pain that has been multiple ER visits and hospitalization who presents with nausea, vomiting and difficulty breathing. She was on her way to I with psych but she had severe vomiting, anxiety attack hence was brought back to the emergency room and on chest x-ray sounds some findings of aspiration pneumonitis. Initially on Zosyn. Co-managed with ID. Okay for by mouth Augmentin. She is tolerating a diet. Asking for numerous pain medicines namely fentanyl 50 IV every 2 when necessary, transitioned to fentanyl patch with better improvement. Recently started Elavil to help with cyclic vomiting, however her primary problems were the aspiration pneumonitis, for which pulm and ID were consulted Also benefited from some lorazepam and I have discussed with case management and RSI liaison as well as starting buspar. Fentanyl patch, lorazepam and Augmentin on chart Difficult conversation with her today still claims suicidal ideation, asking for more IV fentanyl, I have advised her this cannot continue as her pain is at a 2/10 currently. She c/o nausea while eating a significant amount of mashed potatoes in front of me. Seen multiple admission for the same, diagnosed as cyclic vomiting syndrome/ marijuana hyperemesis syndrome. Previously she quickly improved over a few days , though she seems to be insistent about pain and anxiety medications from nursing staff and is frequently seen ambulating the halls, agitated, anxious. Normal gastric imaging scan previously. Will need GI f/u and marijuana cessation as the only things that helped her were cessation and very hot showers previously, now complicated by her anxiety and pain complaints and her suicidal ideation. Need inpatient psych. A/P: Intractable nausea and vomiting - this seem to be classic marijuana hyperemesis syndrome. She is convinced marijuana is the only treatment. I have assured her that it is possible just CBD may help, but this is a well documented disorder. Will cont elavil. Consulted GI Marijuana abuse - counseled on stopping when she experiences this syndrome Anxiety - will give lorazepam PO and buspar, needs psych services Suicidal ideation - needs inpatient psych Chronic abdominal pain - was started on fentanyl patch earlier in her hospital stay last week and this reduced her oral pain med needs Aspiration pneumonitis - covered for aspiration pneumonia, will finish out her prescription of augmentin on d/c per d/w ID Discharge disposition to go to psych/addiction facility today Sitter at bedside, DC 31 minutes. 50% DC education counseling. Discharge Information Condition at Discharge: Stable Follow Up: Weeks (2) Disposition/Orders: D/C to Another Facility ([facility] psychiatric) Scheduled Amitriptyline Hcl (Amitriptyline Hcl) 25 Mg Tablet, 25 MG PO QHS for depression MDD 1, #30 Prescribed by: GEOVANNI PENNINGTON on 12/12/18 1222 Amoxicillin/Potassium Clav (Augmentin 500-125 Tablet) 1 Each Tablet, 1 TAB PO BID for vomiting, #14 Prescribed by: GEOVANNI PENNINGTON on 12/15/18 0905 Famotidine (Pepcid) 20 Mg Tablet, 20 MG PO BID, #20 Prescribed by: ANGELINA MASSEY D.O. on 12/03/18 1539 Fentanyl (FENTANYL 12mcg/hr) 1 Each Patch.td72, 1 PATCH TD Q3DAYS for Chronic Pain for 30 Days, #10 Prescribed by: YAN NORMAN MD on 12/19/18 1414 Lactobacillus Rhamnosus Gg (Culturelle) 1 Each Cap.sprink, 1 CAP PO BID for Diarrhea for 14 Days, #28 Prescribed by: YAN NORMAN MD on 12/19/18 1414 Metoclopramide Hcl (Reglan) 10 Mg Tablet, 1 TAB PO TID for gastroparesis, #60 Prescribed by: GEOVANNI PENNINGTON on 12/12/18 1222 Potassium Chloride (Klor-Con M20) 20 Meq Tab.er.prt, 40 MEQ PO BID for low K MDD 1 for 7 Days, #28 Prescribed by: GEOVANNI PENNINGTON on 12/12/18 1222 Scheduled PRN Buspirone Hcl (Buspirone Hcl) 5 Mg Tablet, 5 MG PO PRN TID PRN for anxiety for 30 Days, #90 Prescribed by: YAN NORMAN MD on 12/19/18 1414 Capsaicin (Capsaicin) 60 Gm Cream..g., 1 ADAM TP TID PRN PRN for PAIN, #1 Prescribed by: ANGELINA MASSEY D.O. on 12/09/18 0516 Lorazepam (Ativan) 0.5 Mg Tablet, 0.5 MG PO TID PRN for ANXIETY MDD 1, #30 Prescribed by: GEOVANNI PENNINGTON on 12/15/18 0904 Ondansetron (Ondansetron Odt) 4 Mg Tab.rapdis, 1 TAB PO PRN Q6-8HRS PRN for VOMITING MDD 1, #16 Prescribed by: GEOVANNI PENNINGTON on 12/12/18 1222 Oxycodone/Apap 5-325 (Percocet 5-325 Mg Tablet ) 1 Each Tablet, 1 TAB PO PRN Q6HRS PRN for PAIN MDD 1 for 6 Days, #20 Prescribed by: YAN NORMAN MD on 12/19/18 1414 Promethazine HCl (Phenergan) 25 Mg Supp.rect, 25 MG RC Q8HRS PRN for NAUSEA/ VOMITING, #14 Prescribed by: ANGELINA MASSEY D.O. on 12/03/18 1539 Zolpidem Tartrate (Ambien) 5 Mg Tablet, 5 MG PO PRN QHS PRN for INSOMNIA for 15 Days, #15 Prescribed by: YAN NORMAN MD on 12/19/18 1414 Discontinued Medications Capsaicin (Capsaicin) 60 Gm Cream..g., 1 ADAM TP TID PRN PRN for PAIN, #1 Prescribed by: ANGELINA MASSEY D.O. on 12/03/18 1539 Famotidine (Pepcid) 20 Mg Tablet, 20 MG PO BID, #14 Prescribed by: ANGELINA MASSEY D.O. on 12/09/18 0516 Lorazepam (Ativan) 0.5 Mg Tablet, 0.5 MG PO TID PRN for ANXIETY, #10 Discontinued Reason: Prescription changed Prescribed by: ANGELINA MASSEY D.O. on 12/09/18 0516 YAN NORMAN MD Dec 19, 2018 14:27
--- NOTE | 2018-12-19 14:46 | NUR ---
FRANK following pt. FRANK notified by Betty from PAT team, pt has been accepted at [facility] to room 34A. Pt is accepted under unspecified depressive disorder by Dr. Lindquist. FRANK arranged transportation via [facility] at 1500. All requested Rx in packet to go with pt. FRANK provided RN with report number. Packet on chart. Pt aware of plan and agreeable. Discussed with Physician about discharge order.
--- NOTE | 2018-12-19 15:13 | NUR ---
Discharge report called to [facility] receiving nurse Betty.Pt dismissed to [facility] per [facility] at 1505,with her clothing shoes and coat. 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
== END 2018-12-19 15:05 | disposition short-term general hospital (02) | DRG 178 ==
LOC: ER 11:52 → 5 NORTH 14:32
PROVIDERS: ADMIT Family Medicine; ATTEND Family Medicine
DX: J69.0 Pneumonitis due to inhalation of food and vomit (principal); R45.851 Suicidal ideations; F41.0 Panic disorder [episodic paroxysmal anxiety]; G43.A0 Cyclical vomiting, in migraine, not intractable; F17.210 Nicotine dependence, cigarettes, uncomplicated; F32.9 Major depressive disorder, single episode, unspecified; G89.29 Other chronic pain; F12.10 Cannabis abuse, uncomplicated; F41.1 Generalized anxiety disorder; Z83.3 Family history of diabetes mellitus; Z90.49 Acquired absence of other specified parts of digestive tract
CPT/HCPCS: 36415; 71046; 74022; 80048; 80053; 80307; 80329; 81001; 81025; 83605; 83690; 83735; 84132; 84443; 85025; 85610; 87040; 87086; 87449; 87804; 96365; 96367; 96372; G0480; J0780; J1630; J1885; J1956; J2060; J2270; J2405; J2543; J3010; J3370; J7030; J7040; J7050; Q0162; 99285-25

== ENCOUNTER 2018-12-24 07:26 | Emergency (ER) | payer SELFPAY ==
[~2018-12-24] VITALS: Ht 162.6 cm; Wt 63.5 kg
[~2018-12-24 07:26] MED LIST changes: +AMOX1TAB58 PO; +BUSP5TAB PO; +FENT1PAT13 TD; +LACT1CAP19 PO; +ZOLP5TAB PO
--- NOTE | 2018-12-24 08:13 | PHYS DOC ---
Past Medical History Past Medical History: Anxiety, Cyclic Vomiting, Other Additional Past Medical Histor: PANIC DISORDER Past Surgical History: Cholecystectomy Alcohol Use: None Drug Use: Marijuana Adult General Chief Complaint Chief Complaint: SUICDAL IDEATION HPI HPI Patient is a 23 year old female who presents with was at a inpatient psych facility in [place] of which she cannot remember the name for. Really look that I see that she supposed to go to [facility]. Patient states she was there for 2 days and then she panicked I can let her leave. Patient states she is still suicidal. Patient states she has no plan. Patient states that she just sees a mental picture denies hearing voices or plan. She is laying in bed quietly states she is not taking any of her medications that she had been discharged with. She states she is willing to go back to a inpatient psych facility. Review of Systems Review of Systems Constitutional: Denies fever or chills [] Eyes: Denies change in visual acuity, redness, or eye pain [] HENT: Denies nasal congestion or sore throat [] Respiratory: Denies cough or shortness of breath [] Cardiovascular: No additional information not addressed in HPI [] GI: Denies abdominal pain, nausea, vomiting, bloody stools or diarrhea [] : Denies dysuria or hematuria [] Musculoskeletal: Denies back pain or joint pain [] Integument: Denies rash or skin lesions [] Neurologic: suicidal ideation. Denies headache, focal weakness or sensory changes [] All other systems were reviewed and found to be within normal limits, except as documented in this note. Current Medications Current Medications Current Medications Medications (Trade) Dose Ordered Sig/[facility] Start Time Stop Time Status Last Admin Dose Admin Lorazepam (Ativan) 1 mg 1X ONCE 12/24/18 08:30 12/24/18 08:31 DC 12/24/18 08:37 1 MG Allergies Allergies Allergies Coded Allergies Type Severity Reaction Last Updated Verified coconut Allergy Severe Anaphylaxis 01/22/17 Yes Physical Exam Physical Exam Constitutional: Well developed, well nourished, no acute distress, non-toxic appearance. [] HENT: Normocephalic, atraumatic, bilateral external ears normal, oropharynx moist, no oral exudates, nose normal. [] Eyes: PERRLA, EOMI, conjunctiva normal, no discharge. [] Neck: Normal range of motion, no tenderness, supple, no stridor. [] Cardiovascular:Heart rate regular rhythm, no murmur [] Lungs & Thorax: Bilateral breath sounds clear to auscultation [] Abdomen: Bowel sounds normal, soft, no tenderness, no masses, no pulsatile masses. [] Skin: Warm, dry, no erythema, no rash. [] Back: No tenderness, no CVA tenderness. [] Extremities: No tenderness, no cyanosis, no clubbing, ROM intact, no edema. [] Neurologic: Alert and oriented X 3, normal motor function, normal sensory function, no focal deficits noted. [] Psychologic: Suicidal ideation. Affect normal, judgement normal, mood normal. [ ] Current Patient Data Vital Signs Vital Signs Date Time Temp Pulse Resp B/P (MAP) Pulse Ox O2 Delivery O2 Flow Rate FiO2 12/24/18 11:13 90 16 118/70 (86) 96 Room Air 12/24/18 07:26 97.9 97.9 Lab Values Laboratory Tests Test 12/24/18 07:37 12/24/18 08:00 12/24/18 08:30 Urine Collection Type Unknown Urine Color Yellow Urine Clarity Clear Urine pH 5.0 Urine Specific Strawberry 1.010 Urine Protein Negative mg/dL (NEG-TRACE) Urine Glucose (UA) Negative mg/dL (NEG) Urine Ketones (Stick) Negative mg/dL (NEG) Urine Blood Negative (NEG) Urine Nitrite Negative (NEG) Urine Bilirubin Negative (NEG) Urine Urobilinogen Dipstick 0.2 mg/dL (0.2 mg/dL) Urine Leukocyte Esterase Negative (NEG) Urine RBC 0 /HPF (0-2) Urine WBC 0 /HPF (0-4) Urine Squamous Epithelial Cells Few /LPF Urine Bacteria 0 /HPF (0-FEW) Urine Opiates Screen Neg (NEG) Urine Methadone Screen Neg (NEG) Urine Barbiturates Neg (NEG) Urine Phencyclidine Screen Neg (NEG) Urine Amphetamine/Methamphetamine Neg (NEG) Urine Benzodiazepines Screen Neg (NEG) Urine Cocaine Screen Neg (NEG) Urine Cannabinoids Screen Pos (NEG) Urine Ethyl Alcohol Neg (NEG) POC Urine HCG, Qualitative Hcg negative (Negative) White Blood Count 8.3 x10^3/uL (4.0-11.0) Red Blood Count 4.70 x10^6/uL (3.50-5.40) Hemoglobin 13.6 g/dL (12.0-15.5) Hematocrit 40.7 % (36.0-47.0) Mean Corpuscular Volume 87 fL (79-100) Mean Corpuscular Hemoglobin 29 pg (25-35) Mean Corpuscular Hemoglobin Concent 33 g/dL (31-37) Red Cell Distribution Width 14.5 % (11.5-14.5) Platelet Count 292 x10^3/uL (140-400) Neutrophils (%) (Auto) 65 % (31-73) Lymphocytes (%) (Auto) 25 % (24-48) Monocytes (%) (Auto) 7 % (0-9) Eosinophils (%) (Auto) 2 % (0-3) Basophils (%) (Auto) 1 % (0-3) Neutrophils # (Auto) 5.4 x10^3uL (1.8-7.7) Lymphocytes # (Auto) 2.1 x10^3/uL (1.0-4.8) Monocytes # (Auto) 0.6 x10^3/uL (0.0-1.1) Eosinophils # (Auto) 0.1 x10^3/uL (0.0-0.7) Basophils # (Auto) 0.1 x10^3/uL (0.0-0.2) Sodium Level 137 mmol/L (136-145) Potassium Level 4.2 mmol/L (3.5-5.1) Chloride Level 101 mmol/L (98-107) Carbon Dioxide Level 24 mmol/L (21-32) Anion Gap 12 (6-14) Blood Urea Nitrogen 13 mg/dL (7-20) Creatinine 0.7 mg/dL (0.6-1.0) Estimated GFR (Cockcroft-Gault) 102.0 Glucose Level 106 mg/dL (70-99) H Calcium Level 9.1 mg/dL (8.5-10.1) Salicylates Level < 2.8 mg/dL (2.8-20.0) L Salicylate Last Dose Date Unknown Salicylate Last Dose Time Unknown Acetaminophen Level < 2.0 mcg/ml (10-30) L Acetaminophen Last Dose Date Unknown Acetaminophen Last Dose Time Unknown Ethyl Alcohol Level < 10 mg/dL (0-10) Laboratory Tests 12/24/18 08:30 Laboratory Tests 12/24/18 08:30 EKG EKG [] Radiology/Procedures Radiology/Procedures [] Course & Med Decision Making Course & Med Decision Making Patient is a 23 year old female who presents with was at a inpatient psych facility in [place] of which she cannot remember the name for. Really look that I see that she supposed to go to [facility]. Patient states she was there for 2 days and then she panicked I can let her leave. Patient states she is still suicidal. Patient states she has no plan. Patient states that she just sees a mental picture of her shooting herself in the head and she does have access to a gun at home. Denies hearing voices or plan. She is laying in bed quietly states she is not taking any of her medications that she had been discharged with. She states she is willing to go back to a inpatient psych facility. Alert and oriented. Lungs are clear to auscultation all lobes. Vital signs are within normal limits. Afebrile. Abdomen soft and nontender. Patient denies any abdominal pain, nausea, vomiting, diarrhea, fever. Speaks in full clear sentences. She is calm and cooperative and laying in bed quietly with the light off and eyes closed, although she is telling me she is anxious. Mucus membranes are moist. PERRLA. Neurologically intact. 0805: I have called and spoke with Shawnee from the Pat team and she is on her way in to speak with the patient and hopefully find placement. 0838: Urine positive for Marijuana 0950: Pat team has been feeling depressed for inpatient psych at several facilities. Currently waiting on a accepting facility. 1057: Shawnee from Pat team called me states that when she talked to [facility] facility they stated that the patient went there and started demanding fentanyl patch and pain management and they stated to her that they could not help her with her pain management and so she left. Patient has not complained of any pain in the ED. She continues to lay quietly and cooperative in bed with the lights off. 1145: Patient has been such to [facility] [place]. Patient was accepted by Dr. Sousa. Patient is notified and has began sobbing loudly. Dragon Disclaimer Dragon Disclaimer This electronic medical record was generated, in whole or in part, using a voice recognition dictation system. Departure Departure Impression: Primary Impression: Suicidal ideation Disposition: 65 XFER TO PSYCH HOSP/UNIT Condition: STABLE Referrals: NO PCP (PCP) Patient Instructions: Suicidal Feelings, How to Help Yourself MARIO ATKINSON APRN Dec 24, 2018 08:13
[2018-12-24 08:26] LABS: BARBITURATES NEG (NEG); BENZODIAZEPINES NEG (NEG); CANNABINOIDS POS (NEG); COCAINE NEG (NEG); METHADONE NEG (NEG); OPIATES NEG (NEG); PHENCYCLIDINE NEG (NEG)
[2018-12-24 08:27] LABS: AMPHETAMINE/METHAMPHETAMINE NEG (NEG)
[2018-12-24] MEDS ORDERED: LORazepam 1 MG TABLET PO ONE (08:30)
[2018-12-24 08:42] LABS: BASO # 0.1 x10^3/uL (0.0-0.2); BASO % 1 % (0-3); EOS # 0.1 x10^3/uL (0.0-0.7); EOS % 2 % (0-3); HEMATOCRIT 40.7 % (36.0-47.0); HEMOGLOBIN 13.6 g/dL (12.0-15.5); LYMPH # 2.1 x10^3/uL (1.0-4.8); LYMPH % 25 % (24-48); MEAN CORPUSCULAR HEMOGLOBIN 29 pg (25-35); MEAN CORPUSCULAR HGB CONC 33 g/dL (31-37); MEAN CORPUSCULAR VOLUME 87 fL (79-100); MONO # 0.6 x10^3/uL (0.0-1.1); MONO % 7 % (0-9); NEUT # 5.4 x10^3uL (1.8-7.7); NEUT % 65 % (31-73); PLATELET COUNT 292 x10^3/uL (140-400); RED CELL DISTRIBUTION WIDTH 14.5 % (11.5-14.5); WHITE BLOOD COUNT 8.3 x10^3/uL (4.0-11.0)
[2018-12-24 08:47] LABS: CALCIUM 9.1 mg/dL (8.5-10.1); CREATININE 0.7 mg/dL (0.6-1.0); POTASSIUM 4.2 mmol/L (3.5-5.1)
[2018-12-24 09:06] LABS: ACETAMIN < 2.0 mcg/ml (10-30); SALIC < 2.8 mg/dL (2.8-20.0)
[2018-12-24 09:07] LABS: ETHANOL < 10 mg/dL (0-10)
[2018-12-24 09:33] LABS: BILIRUBIN,URINE NEGATIVE (NEG); CLARITY,URINE CLEAR; COLOR,URINE YELLOW; NITRITE,URINE NEGATIVE (NEG); PROTEIN,URINE NEGATIVE (NEG-TRACE); UROBILINOGEN,URINE 0.2 mg/dL (0.2 mg/dL)
[2018-12-24 09:35] LABS: BACTERIA,URINE 0 /HPF (0-FEW); RBC,URINE 0 /HPF (0-2); SQUAMOUS EPITHELIAL CELL,UR FEW /LPF; WBC,URINE 0 /HPF (0-4)
[2018-12-24] MEDS ORDERED: OLANZapine IM 10 MG VIAL. IM ONE (12:30)
[2018-12-24 12:55] VITALS: BP 118/73
== END 2018-12-24 13:16 ==
LOC: ER 07:26
DX: R45.851 Suicidal ideations (principal); F41.9 Anxiety disorder, unspecified; Z90.49 Acquired absence of other specified parts of digestive tract; Z91.018 Allergy to other foods
CPT/HCPCS: 36415; 80048; 80307; 80329; 81001; 81025; 85025; 96372; 99285; G0480; G6039; J3490

== ENCOUNTER 2019-01-02 06:52 | Emergency (ER) | payer SELFPAY ==
[~2019-01-02] VITALS: Ht 162.6 cm; Wt 63.5 kg
[2019-01-02 07:04] VITALS: BP 113/48
[2019-01-02] MEDS ORDERED: LIDO:MAALOX 1:1 20 ML SINGLE DOSE. SWSW ONE (07:15)
--- NOTE | 2019-01-02 07:15 | PHYS DOC ---
Past Medical History Past Medical History: Anxiety, Cyclic Vomiting, Other Additional Past Medical Histor: PANIC DISORDER Past Surgical History: Cholecystectomy Alcohol Use: None Drug Use: Marijuana Adult General Chief Complaint Chief Complaint: ABDOMINAL PAIN HPI HPI Patient is a 23-year-old female with a past history of marijuana hyperemesis syndrome, who presents to the emergency department for evaluation. She states she is supposed to go to the [facility] later today, for treatment of her anxiety and this is making her very anxious. She denies any suicidal or homicidal ideation at this time. She also reports some generalized abdominal pain, which is the same chronic abdominal pain she normally experiences. She has not had any nausea or vomiting, however. She denies the possibility of . She denies any black or bloody stools, or any other new abdominal complaints at this time. Her overriding concern appears to be her anxiety. Review of Systems Review of Systems Constitutional: Denies fever or chills [] Eyes: Denies change in visual acuity, redness, or eye pain [] HENT: Denies nasal congestion or sore throat [] Respiratory: Denies cough or shortness of breath [] Cardiovascular: The patient denies any shortness of breath, chest pain, palpitations, or orthopnea[] GI: Denies nausea, vomiting, bloody stools or diarrhea [] : Denies dysuria or hematuria [] Musculoskeletal: Denies back pain or joint pain [] Integument: Denies rash or skin lesions [] Neurologic: Denies headache, focal weakness or sensory changes [] Endocrine: Denies polyuria or polydipsia [] All other systems were reviewed and found to be within normal limits, except as documented in this note. Current Medications Current Medications Current Medications Medications (Trade) Dose Ordered Sig/Arnaldo Start Time Stop Time Status Last Admin Dose Admin Lorazepam (Ativan) 2 mg 1X ONCE 01/02/19 07:15 01/02/19 07:16 DC 01/02/19 07:26 2 MG Multi-Ingredient Mouthwash/Gargle (Gi Cocktail) 20 ml 1X ONCE 01/02/19 07:15 01/02/19 07:16 DC 01/02/19 07:26 20 ML Allergies Allergies Allergies Coded Allergies Type Severity Reaction Last Updated Verified coconut Allergy Severe Anaphylaxis 01/22/17 Yes Physical Exam Physical Exam PHYSICAL EXAM: CONSTITUTIONAL: Well developed, well nourished HEAD: normocephalic, atraumatic EENT: PERRL, EOMI. Conjunctivae normal color, sclerae non-icteric; moist mucous membranes. NECK: Supple, non-tender; no meningismus. LUNGS: Lungs CTA, breathing even and unlabored. Normal air movement. HEART: Regular rate and rhythm, no murmur CHEST: No deformity; non-tender ABDOMEN: The abdomen is soft, and non-tender, no masses or bruits. EXTREM: Normal ROM; no deformity, no calf tenderness. Normal pulses palpable in all extremities. There is no pedal edema. SKIN: No rash; no diaphoresis NEURO: Alert; normal speech and cognition; CN's grossly intact; strength grossly intact without focal deficit. BACK: No CVA TTP. PSYCHIATRIC: The patient exhibits a moderately anxious affect. Denies SI/HI. Current Patient Data Vital Signs Vital Signs Date Time Temp Pulse Resp B/P (MAP) Pulse Ox O2 Delivery O2 Flow Rate FiO2 01/02/19 07:04 97.8 88 22 113/48 (69) 99 Room Air 97.8 EKG EKG [] Radiology/Procedures Radiology/Procedures [] Course & Med Decision Making Course & Med Decision Making Patient's recent test results have been reviewed from her recent hospitalizations. She has rested comfortably in the emergency department and is feeling better at this time. I discussed importance of following up with the [facility] as planned, and need for further outpatient follow-up for chronic abdominal pain. Dragon Disclaimer Dragon Disclaimer This electronic medical record was generated, in whole or in part, using a voice recognition dictation system. Departure Departure Impression: Primary Impression: Anxiety Additional Impression: Chronic epigastric pain Disposition: HOME, SELF-CARE Condition: STABLE Referrals: LUIS F HO MD Patient Instructions: Abdominal Pain, Anxiety and Panic Attacks Problem Qualifiers MATILDE HURLEY MD Jan 02, 2019 07:15
== END 2019-01-02 08:19 | disposition home or self-care (01) ==
LOC: ER 06:52
DX: F41.9 Anxiety disorder, unspecified (principal); G89.29 Other chronic pain; R10.13 Epigastric pain; F12.10 Cannabis abuse, uncomplicated; Z90.49 Acquired absence of other specified parts of digestive tract; Z91.018 Allergy to other foods
CPT/HCPCS: 96372; 99284; J2060

== ENCOUNTER 2019-01-08 08:33 | Emergency (ER) | payer SELFPAY ==
[~2019-01-08] VITALS: Ht 162.6 cm; Wt 63.5 kg
--- NOTE | 2019-01-08 08:54 | PHYS DOC ---
Past Medical History Past Medical History: Anxiety, Cyclic Vomiting, Other Additional Past Medical Histor: PANIC DISORDER Past Surgical History: Cholecystectomy Alcohol Use: None Drug Use: Marijuana Adult General Chief Complaint Chief Complaint: ABDOMINAL PAIN HPI HPI 23-year-old female with history of chronic abdominal pain present in the emergency department today with abdominal pain. Pain is been present for more than 2-3 days. it comes and goes. It is associated with nonbilious and non- bloody emesis. The pain is nonradiating and generalized throughout the abdomen without localization. She denies fevers or chills. Review of systems is negative for chest pain shortness of breath fevers chills or any new rashes. All other review of systems is negative unless otherwise noted in history of present illness. ED course: 23-year-old female presenting with abdominal pain. Afebrile here. Heart rate within normal limits. Saturating well. Abdominal exam is soft and nontender. Negative McBurney's point. Negative Azevedo sign. No rebound tenderness or guarding. Patient is quite anxious in the examination room. We will initiate intramuscular Haldol with IV Ativan to help with the patient's abdominal pain for treatment of a possible abdominal migraine. Blood work ordered.08:52AM On reexamination the patient is sleeping comfortably in the examination room and without any distress. The medications have not been given at this point because the patient was sleeping comfortably and in no distress. Blood work is unremarkable. Abdomen is soft and nontender. We'll discharge the patient to follow up with PCP.The patient has been examined and was not found to have an emergency medical condition. The patient was then discharged home in stable condition to follow up with their primary care physician over the next 1-2 days. They were to return if their symptoms worsened or if they were concerned for any reason. They were also instructed to return to the emergency department if they were unable to get the recommended and appropriate follow- up. [id number] discharge instructions and return precautions were given. Patient's questions were answered to their satisfaction. Patient is comfortable with plan. Review of Systems Review of Systems SEE ABOVE. Current Medications Current Medications Current Medications Medications (Trade) Dose Ordered Sig/Arnaldo Start Time Stop Time Status Last Admin Dose Admin Haloperidol Lactate (Haldol Inj) 5 mg 1X ONCE 01/08/19 09:00 01/08/19 09:01 DC Lorazepam (Ativan) 1 mg 1X ONCE 01/08/19 09:00 01/08/19 09:01 DC Allergies Allergies Allergies Coded Allergies Type Severity Reaction Last Updated Verified coconut Allergy Severe Anaphylaxis 01/22/17 Yes Physical Exam Physical Exam SEE ABOVE Constitutional: Well developed, well nourished, no acute distress, non-toxic appearance. Pt appears anxious in exam room. Family member had to leave immediately upon arrival but left phone number. HENT: Normocephalic, atraumatic, bilateral external ears normal, oropharynx moist, no oral exudates, nose normal. Eyes: PERRLA, EOMI, conjunctiva normal, no discharge. Neck: Normal range of motion, no tenderness, supple, no stridor. [] Cardiovascular:Heart rate regular rhythm, no murmur Lungs & Thorax: Bilateral breath sounds clear to auscultation Abdomen: Bowel sounds normal, soft, no tenderness, no masses, no pulsatile masses. Skin: Warm, dry, no erythema, no rash. Back: No tenderness, no CVA tenderness. [] Extremities: No tenderness, no cyanosis, no clubbing, ROM intact, no edema. Neurologic: Alert and oriented X 3, normal motor function, normal sensory function, no focal deficits noted. Psychologic: Affect normal, judgement normal, mood normal. [] Current Patient Data Vital Signs Vital Signs Date Time Temp Pulse Resp B/P (MAP) Pulse Ox O2 Delivery O2 Flow Rate FiO2 01/08/19 09:30 76 14 100/64 (76) 95 Room Air 01/08/19 08:45 97.9 97.9 Lab Values Laboratory Tests Test 01/08/19 08:42 01/08/19 08:50 01/08/19 08:52 Urine Collection Type Unknown Urine Color Yellow Urine Clarity Clear Urine pH 5.5 Urine Specific Knott 1.020 Urine Protein Negative mg/dL (NEG-TRACE) Urine Glucose (UA) Negative mg/dL (NEG) Urine Ketones (Stick) Negative mg/dL (NEG) Urine Blood Negative (NEG) Urine Nitrite Negative (NEG) Urine Bilirubin Negative (NEG) Urine Urobilinogen Dipstick 0.2 mg/dL (0.2 mg/dL) Urine Leukocyte Esterase Negative (NEG) Urine RBC 1-2 /HPF (0-2) Urine WBC 1-4 /HPF (0-4) Urine Squamous Epithelial Cells Mod /LPF Urine Bacteria Few /HPF (0-FEW) Urine Mucus Slight /LPF White Blood Count 8.9 x10^3/uL (4.0-11.0) Red Blood Count 4.37 x10^6/uL (3.50-5.40) Hemoglobin 12.6 g/dL (12.0-15.5) Hematocrit 37.6 % (36.0-47.0) Mean Corpuscular Volume 86 fL (79-100) Mean Corpuscular Hemoglobin 29 pg (25-35) Mean Corpuscular Hemoglobin Concent 34 g/dL (31-37) Red Cell Distribution Width 14.9 % (11.5-14.5) H Platelet Count 272 x10^3/uL (140-400) Neutrophils (%) (Auto) 67 % (31-73) Lymphocytes (%) (Auto) 25 % (24-48) Monocytes (%) (Auto) 7 % (0-9) Eosinophils (%) (Auto) 1 % (0-3) Basophils (%) (Auto) 1 % (0-3) Neutrophils # (Auto) 5.9 x10^3uL (1.8-7.7) Lymphocytes # (Auto) 2.2 x10^3/uL (1.0-4.8) Monocytes # (Auto) 0.6 x10^3/uL (0.0-1.1) Eosinophils # (Auto) 0.1 x10^3/uL (0.0-0.7) Basophils # (Auto) 0.1 x10^3/uL (0.0-0.2) Sodium Level 138 mmol/L (136-145) Potassium Level 5.2 mmol/L (3.5-5.1) H Chloride Level 102 mmol/L (98-107) Carbon Dioxide Level 27 mmol/L (21-32) Anion Gap 9 (6-14) Blood Urea Nitrogen 14 mg/dL (7-20) Creatinine 0.6 mg/dL (0.6-1.0) Estimated GFR (Cockcroft-Gault) 121.8 BUN/Creatinine Ratio 23 (6-20) H Glucose Level 106 mg/dL (70-99) H Calcium Level 9.0 mg/dL (8.5-10.1) Total Bilirubin 0.3 mg/dL (0.2-1.0) Aspartate Amino Transferase (AST) 28 U/L (15-37) Alanine Aminotransferase (ALT) 22 U/L (14-59) Alkaline Phosphatase 71 U/L (46-116) Total Protein 7.2 g/dL (6.4-8.2) Albumin 3.2 g/dL (3.4-5.0) L Albumin/Globulin Ratio 0.8 (1.0-1.7) L Lipase 169 U/L (73-393) POC Urine HCG, Qualitative Hcg negative (Negative) Laboratory Tests 01/08/19 08:50 Laboratory Tests 01/08/19 08:50 EKG EKG [] Radiology/Procedures Radiology/Procedures [] Course & Med Decision Making Course & Med Decision Making Pertinent Labs and Imaging studies reviewed. (See chart for details) [] Dragon Disclaimer Dragon Disclaimer This electronic medical record was generated, in whole or in part, using a voice recognition dictation system. Departure Departure Impression: Primary Impression: Abdominal pain Disposition: HOME, SELF-CARE Condition: STABLE Referrals: NO PCP (PCP) Patient Instructions: Abdominal Pain (Nonspecific) Additional Instructions: Thank you for allowing us to participate in your care today. Return to the emergency department you have any new or worsening symptoms, or if you are concerned for any reason. Return to emergency department if you have any new or concerning symptoms including but not limited to fever, chills, nausea, vomiting, intractable pain, any new rashes, chest pain, shortness of air , uncontrolled bleeding, difficulty breathing, and/or vision loss. Follow up with your primary care physician within 1-2 days. Call your Primary Doctor tomorrow and inform them of your visit today. If you do not have a primary care provider we are happy to provide you with a list of our primary care providers contact information. This condition should be evaluated by your primary care physician and any recommended consulting services for continued management within 2 days after discharge. If at any time, you are having difficulty getting into your primary care doctor or a specialist, return to the emergency department. PIYUSH RUTLEDGE MD Jan 08, 2019 08:54
[2019-01-08] MEDS ORDERED: HALOPERIDOL LACTATE 5 MG/ML VIAL. IM ONE (09:00)
[2019-01-08 09:04] LABS: BASO # 0.1 x10^3/uL (0.0-0.2); BASO % 1 % (0-3); EOS # 0.1 x10^3/uL (0.0-0.7); EOS % 1 % (0-3); HEMATOCRIT 37.6 % (36.0-47.0); HEMOGLOBIN 12.6 g/dL (12.0-15.5); LYMPH # 2.2 x10^3/uL (1.0-4.8); LYMPH % 25 % (24-48); MEAN CORPUSCULAR HEMOGLOBIN 29 pg (25-35); MEAN CORPUSCULAR HGB CONC 34 g/dL (31-37); MEAN CORPUSCULAR VOLUME 86 fL (79-100); MONO # 0.6 x10^3/uL (0.0-1.1); MONO % 7 % (0-9); NEUT # 5.9 x10^3uL (1.8-7.7); NEUT % 67 % (31-73); PLATELET COUNT 272 x10^3/uL (140-400); RED BLOOD COUNT 4.37 x10^6/uL (3.50-5.40); RED CELL DISTRIBUTION WIDTH 14.9 % (11.5-14.5); WHITE BLOOD COUNT 8.9 x10^3/uL (4.0-11.0)
[2019-01-08 09:06] LABS: BILIRUBIN,URINE NEGATIVE (NEG); CLARITY,URINE CLEAR; COLOR,URINE YELLOW; NITRITE,URINE NEGATIVE (NEG); PH,URINE 5.5; PROTEIN,URINE NEGATIVE (NEG-TRACE); UROBILINOGEN,URINE 0.2 mg/dL (0.2 mg/dL)
[2019-01-08 09:11] LABS: CREATININE 0.6 mg/dL (0.6-1.0); GFR 121.8; POTASSIUM 5.2 mmol/L (3.5-5.1)
[2019-01-08 09:16] LABS: BACTERIA,URINE FEW /HPF (0-FEW); SQUAMOUS EPITHELIAL CELL,UR MOD /LPF
[2019-01-08 09:17] LABS: ALBUMIN 3.2 g/dL (3.4-5.0); ALBUMIN/GLOBULIN RATIO 0.8 (1.0-1.7); TOTAL BILIRUBIN 0.3 mg/dL (0.2-1.0); TOTAL PROTEIN 7.2 g/dL (6.4-8.2)
[2019-01-08 10:00] VITALS: BP 131/97
== END 2019-01-08 09:50 | disposition home or self-care (01) ==
LOC: ER 08:33
DX: R10.84 Generalized abdominal pain (principal); G89.29 Other chronic pain; F41.9 Anxiety disorder, unspecified; Z90.49 Acquired absence of other specified parts of digestive tract
CPT/HCPCS: 36415; 80053; 81001; 81025; 83690; 85025; 99283

== ENCOUNTER 2019-01-09 04:43 | Emergency (ER) | payer SELFPAY ==
[~2019-01-09] VITALS: Ht 162.6 cm; Wt 63.5 kg
--- NOTE | 2019-01-09 05:02 | PHYS DOC ---
Past Medical History Past Medical History: Anxiety, Cyclic Vomiting, Depression, Other Additional Past Medical Histor: PANIC DISORDER Past Surgical History: Cholecystectomy Alcohol Use: None Drug Use: Marijuana Adult General Chief Complaint Chief Complaint: ANXIETY/PANIC ATTACK HPI HPI Patient is a 23 year old female who presents with anxiety. This is been present for a while along with her long-standing abdominal pain. No vomiting, no diarrhea. Patient was supposed to see [facility] last week after her visit to the emergency department but did not go because she was "sick." She was evaluated in the emergency department yesterday for abdominal pain and no significant pathology was found.[] Review of Systems Review of Systems Constitutional: Denies fever or chills [] Eyes: Denies change in visual acuity, redness, or eye pain [] HENT: Denies nasal congestion or sore throat [] Respiratory: Denies cough or shortness of breath [] Cardiovascular: No additional information not addressed in HPI [] GI: See history of present illness[] : Denies dysuria or hematuria [] Musculoskeletal: Denies back pain or joint pain [] Integument: Denies rash or skin lesions [] Neurologic: Denies headache, focal weakness or sensory changes [] Endocrine: Denies polyuria or polydipsia [] All other systems were reviewed and found to be within normal limits, except as documented in this note. Current Medications Current Medications Current Medications Medications (Trade) Dose Ordered Sig/[facility] Start Time Stop Time Status Last Admin Dose Admin Lorazepam (Ativan) 2 mg 1X ONCE 01/09/19 05:00 01/09/19 05:19 DC 01/09/19 05:05 2 MG Allergies Allergies Allergies Coded Allergies Type Severity Reaction Last Updated Verified coconut Allergy Severe Anaphylaxis 01/22/17 Yes Physical Exam Physical Exam Constitutional: Well developed, well nourished, no acute distress, non-toxic appearance. [] HENT: Normocephalic, atraumatic, bilateral external ears normal, oropharynx moist, no oral exudates, nose normal. [] Eyes: PERRLA, EOMI, conjunctiva normal, no discharge. [] Neck: Normal range of motion, no tenderness, supple, no stridor. [] Cardiovascular:Heart rate is mildly tachycardic with a regular rhythm, no murmur [] Lungs & Thorax: Bilateral breath sounds clear to auscultation [] Abdomen: Bowel sounds normal, soft, no tenderness, no masses, no pulsatile masses. [] Skin: Warm, dry, no erythema, no rash. [] Back: No tenderness, no CVA tenderness. [] Extremities: No tenderness, no cyanosis, no clubbing, ROM intact, no edema. [] Neurologic: Alert and oriented X 3, normal motor function, normal sensory function, no focal deficits noted. [] Psychologic: Affect anxious, no suicidal or homicidal ideation. [] Current Patient Data Vital Signs Vital Signs Date Time Temp Pulse Resp B/P (MAP) Pulse Ox O2 Delivery O2 Flow Rate FiO2 01/09/19 05:20 106 20 140/88 (105) 98 Room Air 01/09/19 04:44 97.9 97.9 Lab Values Laboratory Tests Test 01/09/19 04:52 POC Urine HCG, Qualitative Hcg negative (Negative) EKG EKG [] Radiology/Procedures Radiology/Procedures [] Course & Med Decision Making Course & Med Decision Making Pertinent Labs and Imaging studies reviewed. (See chart for details) Medical decision making: Patient with long-standing abdominal pain and had a workup performed yesterday that did not show any acute abnormalities. Believe this to be related to her cannabinol avoid use along with her anxiety issues. Patient is not suicidal or homicidal. Patient is directed to follow-up at [facility] like she was supposed to last week.[] Dragon Disclaimer Dragon Disclaimer This electronic medical record was generated, in whole or in part, using a voice recognition dictation system. Departure Departure Impression: Primary Impression: Anxiety Additional Impression: Marijuana use Disposition: 01 HOME, SELF-CARE Condition: IMPROVED Referrals: NO PCP (PCP) Patient Instructions: Anxiety and Panic Attacks, Marijuana Abuse and Chemical Dependency Additional Instructions: Follow-up and [facility] today. Do not smoke marijuana or use any other drugs or medications that are not prescribed for you. They may kill you! Return to the ER if unable to tolerate liquids, or any other concerns Problem Qualifiers LUPE RICH DO Jan 09, 2019 05:02
[2019-01-09 05:20] VITALS: BP 140/88
[2019-01-09 05:37] LABS: BILIRUBIN,URINE NEGATIVE (NEG); CLARITY,URINE CLEAR; COLOR,URINE YELLOW; NITRITE,URINE NEGATIVE (NEG); PROTEIN,URINE NEGATIVE (NEG-TRACE); UROBILINOGEN,URINE 0.2 mg/dL (0.2 mg/dL)
[2019-01-09 05:48] LABS: BACTERIA,URINE FEW /HPF (0-FEW); RBC,URINE 0 /HPF (0-2); SQUAMOUS EPITHELIAL CELL,UR FEW /LPF
[2019-01-10] MEDS ORDERED: CAPS60CR2 TP (03:02)
[2019-01-10] MEDS ORDERED: PROM25SU32 RC (03:02)
[2019-01-10] MEDS ORDERED: PROM25TA10 PO (03:02)
== END 2019-01-09 05:35 | disposition home or self-care (01) ==
LOC: ER 04:43
DX: F41.9 Anxiety disorder, unspecified (principal); F12.20 Cannabis dependence, uncomplicated; F32.9 Major depressive disorder, single episode, unspecified; Z90.710 Acquired absence of both cervix and uterus; Z91.018 Allergy to other foods
CPT/HCPCS: 81001; 81025; 96372; 99284; J2060

== ENCOUNTER 2019-01-10 02:32 | Emergency (ER) | payer SELFPAY ==
[~2019-01-10] VITALS: Ht 162.6 cm; Wt 63.5 kg
[2019-01-10 02:39] VITALS: BP 147/97
[2019-01-10] MEDS ORDERED: CAPSAICIN 0.025% TOPICAL CREAM 60GM TUBE. TP ONE (03:00)
[2019-01-10] MEDS ORDERED: PROM25TA10 PO (03:02)
[2019-01-10] MEDS ORDERED: PROM25SU32 RC (03:02)
[2019-01-10] MEDS ORDERED: CAPS60CR2 TP (03:02)
--- NOTE | 2019-01-10 03:02 | PHYS DOC ---
Past Medical History Past Medical History: Anxiety, Cyclic Vomiting, Depression, Other Additional Past Medical Histor: PANIC DISORDER Past Surgical History: Cholecystectomy Alcohol Use: None Drug Use: Marijuana Adult General Chief Complaint Chief Complaint: ABDOMINAL PAIN HPI HPI Patient is a 23 year old female who presents with chronic abdominal pain. Also some vomiting. Pain never really seems to get better or worse. No blood in the emesis. She is still able to make urine. Reports that her last use of marijuana was 2 days ago. Nothing seems to make the discomfort better or worse. No diarrhea. No recent travel. No fevers.[] Review of Systems Review of Systems Constitutional: Denies fever or chills [] Eyes: Denies change in visual acuity, redness, or eye pain [] HENT: Denies nasal congestion or sore throat [] Respiratory: Denies cough or shortness of breath [] Cardiovascular: No chest pain or palpitations[] GI: See history of present illness[] : Denies dysuria or hematuria [] Musculoskeletal: Denies back pain or joint pain [] Integument: Denies rash or skin lesions [] Neurologic: Denies headache, focal weakness or sensory changes [] Endocrine: Denies polyuria or polydipsia [] All other systems were reviewed and found to be within normal limits, except as documented in this note. Current Medications Current Medications Current Medications Medications (Trade) Dose Ordered Sig/Arnaldo Start Time Stop Time Status Last Admin Dose Admin Capsaicin (Zostrix) 1 sami ONCE ONCE 01/10/19 03:00 01/10/19 03:01 DC 01/10/19 02:57 1 SAMI Lorazepam (Ativan) 2 mg STK-MED ONCE 01/10/19 03:00 01/10/19 03:01 DC Allergies Allergies Allergies Coded Allergies Type Severity Reaction Last Updated Verified coconut Allergy Severe Anaphylaxis 01/22/17 Yes Physical Exam Physical Exam Constitutional: Well developed, well nourished, no acute distress, non-toxic appearance. [] HENT: Normocephalic, atraumatic, bilateral external ears normal, oropharynx moist, no oral exudates, nose normal. [] Eyes: PERRLA, EOMI, conjunctiva normal, no discharge. [] Neck: Normal range of motion, no tenderness, supple, no stridor. [] Cardiovascular:Heart rate regular rhythm, no murmur [] Lungs & Thorax: Bilateral breath sounds clear to auscultation [] Abdomen: Bowel sounds normal, soft, no tenderness, no masses, no pulsatile masses. [] Skin: Warm, dry, no erythema, no rash. [] Back: No tenderness, no CVA tenderness. [] Extremities: No tenderness, no cyanosis, no clubbing, ROM intact, no edema. [] Neurologic: Alert and oriented X 3, normal motor function, normal sensory function, no focal deficits noted. [] Psychologic: Affect normal, judgement normal, mood normal. [] Current Patient Data Vital Signs Vital Signs Date Time Temp Pulse Resp B/P (MAP) Pulse Ox O2 Delivery O2 Flow Rate FiO2 01/10/19 02:39 97.3 109 24 147/97 (114) 98 Room Air 97.3 EKG EKG [] Radiology/Procedures Radiology/Procedures [] Course & Med Decision Making Course & Med Decision Making Pertinent Labs and Imaging studies reviewed. (See chart for details) Medical decision making: Nontoxic patient with long-standing abdominal pain. Believe this to be related to her cannabinoid use. She had an extensive workup performed in the past 48 hours. No evidence of by mouth intolerance.[] Dragon Disclaimer Dragon Disclaimer This electronic medical record was generated, in whole or in part, using a voice recognition dictation system. Departure Departure Impression: Primary Impression: Abdominal pain Additional Impressions: Marijuana use Nausea and vomiting Disposition: 01 HOME, SELF-CARE Condition: IMPROVED Referrals: NO PCP (PCP) Patient Instructions: Abdominal Pain, Marijuana Abuse and Chemical Dependency, Nausea and Vomiting Additional Instructions: Drink plenty of fluids, frequent small sips. No fatty foods, no milk, and no pepper for the next 48 hours. For the next 48 hours eat a diet rich in carbohydrates with foods such as bananas, rice, applesauce, and toast. Follow- up with your regular doctor in 2 days. If you do not have a regular doctor a list of local clinics will be provided for you. Do not use any drugs or medications that are not prescribed for you. They may kill you! Return to the ER if unable to tolerate liquids, blood in the emesis, or any other concerns. Scripts Promethazine Hcl (PROMETHAZINE HCL) 25 Mg Tablet 1 TAB PO PRN Q6HRS, #20 TAB Prov: LUPE RICH DO 01/10/19 Promethazine HCl (Phenergan) 25 Mg Supp.rect 25 MG RC QIDPRN PRN for NAUSEA/VOMITING, #12 SUPP.RECT Prov: LUPE RICH DO 01/10/19 Capsaicin (CAPSAICIN) 60 Gm Cream..g. 1 SAMI TP TID PRN PRN for PAIN, #1 EACH Prov: LUPE RICH DO 01/10/19 Problem Qualifiers Primary Impression: Abdominal pain Abdominal location: generalized Qualified Codes: R10.84 - Generalized abdominal pain Additional Impressions: Nausea and vomiting Vomiting type: unspecified Vomiting Intractability: non-intractable Qualified Codes: R11.2 - Nausea with vomiting, unspecified LUPE RICH DO Jan 10, 2019 03:02
== END 2019-01-10 03:10 | disposition home or self-care (01) ==
LOC: ER 02:32
DX: R10.84 Generalized abdominal pain (principal); G89.29 Other chronic pain; R11.2 Nausea with vomiting, unspecified; F12.20 Cannabis dependence, uncomplicated; F41.9 Anxiety disorder, unspecified; F32.9 Major depressive disorder, single episode, unspecified; Z90.49 Acquired absence of other specified parts of digestive tract; Z91.018 Allergy to other foods
CPT/HCPCS: 96374; 99283; J2060

== ENCOUNTER 2019-01-14 13:13 | Emergency (ER) | payer SELFPAY ==
[~2019-01-14] VITALS: Ht 162.6 cm; Wt 63.5 kg
[2019-01-14 13:20] VITALS: BP 145/81
[2019-01-14] MEDS ORDERED: METOCLOPRAMIDE HCL 10 MG/2 ML VIAL. IM ONE (13:30)
[2019-01-14 14:33] LABS: BILIRUBIN,URINE NEGATIVE (NEG); CLARITY,URINE CLOUDY; COLOR,URINE YELLOW; NITRITE,URINE NEGATIVE (NEG); PROTEIN,URINE NEGATIVE (NEG-TRACE); UROBILINOGEN,URINE 0.2 mg/dL (0.2 mg/dL)
[2019-01-14 14:36] LABS: BASO % 0 % (0-3); EOS % 0 % (0-3); HEMATOCRIT 37.8 % (36.0-47.0); HEMOGLOBIN 12.6 g/dL (12.0-15.5); LYMPH # 1.6 x10^3/uL (1.0-4.8); LYMPH % 14 % (24-48); MEAN CORPUSCULAR HEMOGLOBIN 29 pg (25-35); MEAN CORPUSCULAR HGB CONC 33 g/dL (31-37); MEAN CORPUSCULAR VOLUME 86 fL (79-100); MONO # 0.5 x10^3/uL (0.0-1.1); MONO % 4 % (0-9); NEUT # 9.7 x10^3uL (1.8-7.7); NEUT % 81 % (31-73); PLATELET COUNT 269 x10^3/uL (140-400); RED BLOOD COUNT 4.41 x10^6/uL (3.50-5.40); RED CELL DISTRIBUTION WIDTH 14.3 % (11.5-14.5); WHITE BLOOD COUNT 11.9 x10^3/uL (4.0-11.0)
[2019-01-14 14:41] LABS: CALCIUM 9.1 mg/dL (8.5-10.1); CREATININE 0.7 mg/dL (0.6-1.0); POTASSIUM 3.7 mmol/L (3.5-5.1)
[2019-01-14 14:43] LABS: AMPHETAMINE/METHAMPHETAMINE NEG (NEG); BARBITURATES NEG (NEG); BENZODIAZEPINES NEG (NEG); CANNABINOIDS POS (NEG); COCAINE NEG (NEG); METHADONE NEG (NEG); OPIATES NEG (NEG); PHENCYCLIDINE NEG (NEG)
[2019-01-14 14:52] LABS: ALBUMIN 3.7 g/dL (3.4-5.0); ALBUMIN/GLOBULIN RATIO 0.9 (1.0-1.7); TOTAL BILIRUBIN 0.4 mg/dL (0.2-1.0); TOTAL PROTEIN 7.7 g/dL (6.4-8.2)
[2019-01-14 14:59] LABS: BACTERIA,URINE MODERATE /HPF (0-FEW); RBC,URINE 0 /HPF (0-2); YEAST,URINE PRESENT /HPF
--- NOTE | 2019-01-14 18:32 | PHYS DOC ---
Past Medical History Past Medical History: Anxiety, Cyclic Vomiting, Depression, Other Additional Past Medical Histor: PANIC DISORDER Past Surgical History: Cholecystectomy Alcohol Use: None Drug Use: Marijuana Adult General Chief Complaint Chief Complaint: ABDOMINAL PAIN HPI HPI Patient is a 23 year old female who presents with nausea and vomiting. The patient is very well-known to this facility and has been treated here multiple times for abdominal pain with cyclic vomiting. The patient requests Haldol with Ativan usually when she is coming in as a patient. She has been referred to psychiatric institutions now several times but refuses to stay. She at one point was given a prescription for Ativan and did not fill the medication but instead came back to the emergency department the next day for injectable Ativan. She has had multiple CTs of the abdomen that have all been negative. She does not follow up with GI. 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 She still smokes daily. She has agreed to talk to the psychiatric assessment team today about possible placement. Review of Systems Review of Systems Constitutional: Denies fever or chills [] Eyes: Denies change in visual acuity, redness, or eye pain [] HENT: Denies nasal congestion or sore throat [] Respiratory: Denies cough or shortness of breath [] Cardiovascular: No additional information not addressed in HPI [] GI: See history of present illness : Denies dysuria or hematuria [] Musculoskeletal: Denies back pain or joint pain [] Integument: Denies rash or skin lesions [] Neurologic: Denies headache, focal weakness or sensory changes [] Endocrine: Denies polyuria or polydipsia [] All other systems were reviewed and found to be within normal limits, except as documented in this note. Current Medications Current Medications Current Medications Medications (Trade) Dose Ordered Sig/Arnaldo Start Time Stop Time Status Last Admin Dose Admin Metoclopramide HCl (Reglan Vial) 10 mg 1X ONCE 01/14/19 13:30 01/14/19 13:31 DC 01/14/19 13:40 10 MG Allergies Allergies Allergies Coded Allergies Type Severity Reaction Last Updated Verified coconut Allergy Severe Anaphylaxis 01/22/17 Yes Physical Exam Physical Exam Constitutional: Well developed, well nourished, no acute distress, non-toxic appearance. [] Cardiovascular:Heart rate regular rhythm, no murmur [] Lungs & Thorax: Bilateral breath sounds clear to auscultation [] Abdomen: Unable to assess bowel sounds as patient is causing herself to retch, soft, generalized tenderness, no masses, no pulsatile masses. [] Skin: Warm, dry, no erythema, no rash. [] Neurologic: Alert and oriented X 3, normal motor function, normal sensory function, no focal deficits noted. [] Psychologic: Affect normal, judgement normal, mood normal. [] Current Patient Data Vital Signs Vital Signs Date Time Temp Pulse Resp B/P (MAP) Pulse Ox O2 Delivery O2 Flow Rate FiO2 01/14/19 14:00 104 20 99 Room Air 01/14/19 13:20 98.4 145/81 (102) 98.4 Lab Values Laboratory Tests Test 01/14/19 14:10 01/14/19 14:15 White Blood Count 11.9 x10^3/uL (4.0-11.0) H Red Blood Count 4.41 x10^6/uL (3.50-5.40) Hemoglobin 12.6 g/dL (12.0-15.5) Hematocrit 37.8 % (36.0-47.0) Mean Corpuscular Volume 86 fL (79-100) Mean Corpuscular Hemoglobin 29 pg (25-35) Mean Corpuscular Hemoglobin Concent 33 g/dL (31-37) Red Cell Distribution Width 14.3 % (11.5-14.5) Platelet Count 269 x10^3/uL (140-400) Neutrophils (%) (Auto) 81 % (31-73) H Lymphocytes (%) (Auto) 14 % (24-48) L Monocytes (%) (Auto) 4 % (0-9) Eosinophils (%) (Auto) 0 % (0-3) Basophils (%) (Auto) 0 % (0-3) Neutrophils # (Auto) 9.7 x10^3uL (1.8-7.7) H Lymphocytes # (Auto) 1.6 x10^3/uL (1.0-4.8) Monocytes # (Auto) 0.5 x10^3/uL (0.0-1.1) Eosinophils # (Auto) 0.0 x10^3/uL (0.0-0.7) Basophils # (Auto) 0.0 x10^3/uL (0.0-0.2) Sodium Level 139 mmol/L (136-145) Potassium Level 3.7 mmol/L (3.5-5.1) Chloride Level 102 mmol/L (98-107) Carbon Dioxide Level 23 mmol/L (21-32) Anion Gap 14 (6-14) Blood Urea Nitrogen 9 mg/dL (7-20) Creatinine 0.7 mg/dL (0.6-1.0) Estimated GFR (Cockcroft-Gault) 102.0 BUN/Creatinine Ratio 13 (6-20) Glucose Level 124 mg/dL (70-99) H Calcium Level 9.1 mg/dL (8.5-10.1) Total Bilirubin 0.4 mg/dL (0.2-1.0) Aspartate Amino Transferase (AST) 15 U/L (15-37) Alanine Aminotransferase (ALT) 19 U/L (14-59) Alkaline Phosphatase 68 U/L (46-116) Total Protein 7.7 g/dL (6.4-8.2) Albumin 3.7 g/dL (3.4-5.0) Albumin/Globulin Ratio 0.9 (1.0-1.7) L Urine Collection Type Unknown Urine Color Yellow Urine Clarity Cloudy Urine pH 6.0 Urine Specific Roberts 1.025 Urine Protein Negative mg/dL (NEG-TRACE) Urine Glucose (UA) Negative mg/dL (NEG) Urine Ketones (Stick) Trace mg/dL (NEG) Urine Blood Negative (NEG) Urine Nitrite Negative (NEG) Urine Bilirubin Negative (NEG) Urine Urobilinogen Dipstick 0.2 mg/dL (0.2 mg/dL) Urine Leukocyte Esterase Small (NEG) Urine RBC 0 /HPF (0-2) Urine WBC 1-4 /HPF (0-4) Urine Bacteria Moderate /HPF (0-FEW) Urine Yeast Present /HPF Urine Opiates Screen Neg (NEG) Urine Methadone Screen Neg (NEG) Urine Barbiturates Neg (NEG) Urine Phencyclidine Screen Neg (NEG) Urine Amphetamine/Methamphetamine Neg (NEG) Urine Benzodiazepines Screen Neg (NEG) Urine Cocaine Screen Neg (NEG) Urine Cannabinoids Screen Pos (NEG) Urine Ethyl Alcohol Neg (NEG) Laboratory Tests 01/14/19 14:10 Laboratory Tests 01/14/19 14:10 EKG EKG [] Radiology/Procedures Radiology/Procedures [] Course & Med Decision Making Course & Med Decision Making Pertinent Labs and Imaging studies reviewed. (See chart for details) []The patient was given IM Reglan. She has continued to bring up frothy clear secretions. The patient wants Haldol and Ativan. It was explained to the patient Haldol is a very potent antipsychotic and she could very well end up with extrapyramidal symptoms or carditis dyskinesia from taking Haldol as frequently as she is presenting to the emergency department for her symptoms. Shalini, with the psychiatric assessment team, has been here to evaluate. She spoke with the patient at length about using her resources properly. The patient has been admitted at numerous psychiatric facilities, but leaves after a day or so with out receiving proper treatment. The patient refuses all follow- ups and has no follow-through on her treatment process. The patient states that she needs pain medications. It was explained to the patient that that is not in her best interest. The patient eloped from the emergency department. Dragon Disclaimer Dragon Disclaimer This electronic medical record was generated, in whole or in part, using a voice recognition dictation system. Departure Departure Impression: Primary Impression: Eloped from emergency department Disposition: 07 AGAINST MEDICAL ADVICE Condition: STABLE LATISHA GARCIA APRN Jan 14, 2019 18:32
== END 2019-01-14 14:35 | disposition left against medical advice (07) ==
LOC: ER 13:13
DX: R11.2 Nausea with vomiting, unspecified (principal); F12.20 Cannabis dependence, uncomplicated; F41.9 Anxiety disorder, unspecified; F32.9 Major depressive disorder, single episode, unspecified; Z90.49 Acquired absence of other specified parts of digestive tract; Z91.018 Allergy to other foods
CPT/HCPCS: 36415; 80053; 80307; 81001; 85025; 87086; 96372; 99283; J2765

== ENCOUNTER 2019-06-12 11:01 | Emergency (ER) | payer SELFPAY ==
[~2019-06-12] VITALS: Ht 162.6 cm; Wt 63.5 kg
--- NOTE | 2019-06-12 11:29 | PHYS DOC ---
Past Medical History Past Medical History: Anxiety, Cyclic Vomiting, Depression, Other Additional Past Medical Histor: PANIC DISORDER Past Surgical History: Cholecystectomy Alcohol Use: None Drug Use: Marijuana Adult General Chief Complaint Chief Complaint: ABDOMINAL PAIN HPI HPI Patient is a 24 year old female who presents with complaining of abdominal pain. Patient has history of anxiety and depression and cyclic vomiting syndrome with frequent emergency room visits stated she had lower abdominal pain that started and offered ago as a sharp and constant pain without radiation. Patient denies nausea and vomiting, fever and chills, denies symptoms, diarrhea and constipation, vaginal bleeding or discharge, . Patient rated the pain 10 over 10 and didn't take any pain medication at home. Patient states she ran out of lorazepam 5 days ago and because of lack cough primary care physician was not able to get her medication. Patient was seen at [facility] yesterday with complaining of abdominal pain and treated with anxiety and pain medication. Review of Systems Review of Systems Constitutional: Denies fever or chills [] Eyes: Denies change in visual acuity, redness, or eye pain [] HENT: Denies nasal congestion or sore throat [] Respiratory: Denies cough or shortness of breath [] Cardiovascular: No additional information not addressed in HPI [] GI: Reports abdominal pain, denies nausea, vomiting, bloody stools or diarrhea [] : Denies dysuria or hematuria [] Musculoskeletal: Denies back pain or joint pain [] Integument: Denies rash or skin lesions [] Neurologic: Denies headache, focal weakness or sensory changes [] Endocrine: Denies polyuria or polydipsia [] All other systems were reviewed and found to be within normal limits, except as documented in this note. Current Medications Current Medications Current Medications Medications (Trade) Dose Ordered Sig/[facility] Start Time Stop Time Status Last Admin Dose Admin Acetaminophen/ Hydrocodone Bitart (Lortab 5/325) 1 tab 1X ONCE 06/12/19 11:45 06/12/19 11:46 DC 06/12/19 11:42 1 TAB Alprazolam (Xanax) 1 mg 1X ONCE 06/12/19 11:45 06/12/19 11:46 DC 06/12/19 11:42 1 MG Ketorolac Tromethamine (Toradol Im) 60 mg 1X ONCE 06/12/19 12:30 06/12/19 12:31 DC 06/12/19 12:22 60 MG Ondansetron HCl (Zofran Odt) 8 mg 1X ONCE 06/12/19 12:30 06/12/19 12:31 DC 06/12/19 12:09 8 MG Allergies Allergies Allergies Coded Allergies Type Severity Reaction Last Updated Verified coconut Allergy Severe Anaphylaxis 01/22/17 Yes Physical Exam Physical Exam Constitutional: Well nourished, mild distress, non-toxic appearance. [] HENT: Normocephalic, atraumatic. Eyes: PERRLA, EOMI, conjunctiva normal, no discharge. [] Neck: Normal range of motion, no tenderness, supple, no stridor. [] Cardiovascular:Heart rate regular rhythm, no murmur [] Lungs & Thorax: Bilateral breath sounds clear to auscultation [] Abdomen: Bowel sounds normal, soft, no tenderness, no masses, no pulsatile masses. [] Skin: Warm, dry, no erythema, no rash. [] Back: No tenderness, no CVA tenderness. [] Extremities: No tenderness, no cyanosis, no clubbing, ROM intact, no edema. [] Neurologic: Alert and oriented X 3, no focal deficits noted. [] Psychologic: Affect very anxious, mood normal. [] Current Patient Data Vital Signs Vital Signs Date Time Temp Pulse Resp B/P (MAP) Pulse Ox O2 Delivery O2 Flow Rate FiO2 06/12/19 11:42 18 97 Room Air 06/12/19 11:30 115 169/112 (131) 06/12/19 11:30 98.3 98.3 Lab Values Laboratory Tests Test 06/12/19 11:18 06/12/19 11:22 Urine Collection Type Void Urine Color Yellow Urine Clarity Cloudy Urine pH 5.5 Urine Specific [place] 1.025 Urine Protein Negative mg/dL (NEG-TRACE) Urine Glucose (UA) Negative mg/dL (NEG) Urine Ketones (Stick) Negative mg/dL (NEG) Urine Blood Large (NEG) Urine Nitrite Negative (NEG) Urine Bilirubin Negative (NEG) Urine Urobilinogen Dipstick 0.2 mg/dL (0.2 mg/dL) Urine Leukocyte Esterase Small (NEG) Urine RBC Occ /HPF (0-2) Urine WBC 5-10 /HPF (0-4) Urine Squamous Epithelial Cells Many /LPF Urine Bacteria Many /HPF (0-FEW) Urine Mucus Mod /LPF Urine Opiates Screen Neg (NEG) Urine Methadone Screen Neg (NEG) Urine Barbiturates Neg (NEG) Urine Phencyclidine Screen Neg (NEG) Urine Amphetamine/Methamphetamine Neg (NEG) Urine Benzodiazepines Screen Neg (NEG) Urine Cocaine Screen Neg (NEG) Urine Cannabinoids Screen Pos (NEG) Urine Ethyl Alcohol Neg (NEG) POC Urine HCG, Qualitative Hcg negative (Negative) EKG EKG [] Radiology/Procedures Radiology/Procedures [] Course & Med Decision Making Course & Med Decision Making Pertinent Labs reviewed. (See chart for details) Evaluation of patient in ER showed 24-year-old female patient with history of anxiety presented to ER with complaining of abdominal pain for an hour. Patient was very anxious and moving frequently. Patient seen in another emergency room yesterday with the same complaint. Patient denies nausea vomiting for the last year but later on had self-induced vomiting. Patient treated with Zofran sublingual and [place] and IM Toradol and as well as she had the Toradol IM decided to leave. Dragon Disclaimer Dragon Disclaimer This electronic medical record was generated, in whole or in part, using a voice recognition dictation system. Departure Departure Impression: Primary Impression: Panic attack Additional Impressions: Self induced vomiting Urinary tract infection Abdominal pain Marijuana use Disposition: HOME, SELF-CARE (at 1226) Condition: IMPROVED Referrals: NO PCP (PCP) Patient Instructions: Anxiety and Panic Attacks, Nausea and Vomiting, Urinary Tract Infection Additional Instructions: Drink plenty of liquids Follow-up with your primary care physician in 3-5 days Return to ER if not getting better Follow up with your psychiatric doctor for refill of psychiatric medication Scripts Ondansetron Hcl (ZOFRAN) 4 Mg Tablet 1 TAB PO PRN Q6-8HRS for nausea, #12 TAB Prov: LEW COOPER MD 06/12/19 Ciprofloxacin Hcl (CIPRO) 250 Mg Tablet 1 TAB PO BID for infection, #6 TAB Prov: LEW COOPER MD 06/12/19 Problem Qualifiers Additional Impressions: Urinary tract infection Urinary tract infection type: site unspecified Hematuria presence: without hematuria Qualified Codes: N39.0 - Urinary tract infection, site not specified Abdominal pain Abdominal location: lower abdomen, unspecified Qualified Codes: R10.30 - Lower abdominal pain, unspecified LEW COOPER MD Jun 12, 2019 11:29
[2019-06-12 11:30] VITALS: BP 169/112
[2019-06-12] MEDS ORDERED: HYDROcodone/APAP 5/325MG 1 TAB TABLET PO ONE (11:45)
[2019-06-12] MEDS ORDERED: ALPRAZolam 1 MG TABLET PO ONE (11:45)
[2019-06-12] MEDS ORDERED: ALPRAZolam 0.5 MG TABLET PO ONE (11:45)
[2019-06-12 11:47] LABS: BILIRUBIN,URINE NEGATIVE (NEG); CLARITY,URINE CLOUDY; COLOR,URINE YELLOW; NITRITE,URINE NEGATIVE (NEG); PH,URINE 5.5; PROTEIN,URINE NEGATIVE (NEG-TRACE); UROBILINOGEN,URINE 0.2 mg/dL (0.2 mg/dL)
[2019-06-12 11:53] LABS: BARBITURATES NEG (NEG); BENZODIAZEPINES NEG (NEG); CANNABINOIDS POS (NEG); COCAINE NEG (NEG); METHADONE NEG (NEG); OPIATES NEG (NEG); PHENCYCLIDINE NEG (NEG)
[2019-06-12 11:59] LABS: SQUAMOUS EPITHELIAL CELL,UR MANY /LPF
[2019-06-12 12:00] LABS: AMPHETAMINE/METHAMPHETAMINE NEG (NEG); BACTERIA,URINE MANY /HPF (0-FEW); RBC,URINE OCC /HPF (0-2)
[2019-06-12] MEDS ORDERED: CIPR250T30 PO (12:29)
[2019-06-12] MEDS ORDERED: ONDA4TAB7 PO (12:29)
[2019-06-12] MEDS ORDERED: ONDANSETRON ODT 4 MG TAB.RAPDIS. PO ONE (12:30)
[2019-06-12] MEDS ORDERED: KETOROLAC 60 MG/2 ML VIAL. IM ONE (12:30)
== END 2019-06-12 12:28 | disposition home or self-care (01) ==
LOC: ER 11:01
DX: N39.0 Urinary tract infection, site not specified (principal); F41.0 Panic disorder [episodic paroxysmal anxiety]; F50.2 Bulimia nervosa; F12.20 Cannabis dependence, uncomplicated; F32.9 Major depressive disorder, single episode, unspecified; Z90.49 Acquired absence of other specified parts of digestive tract; Z91.018 Allergy to other foods
CPT/HCPCS: 80307; 81001; 81025; 87086; 96372; 99284; J1885; Q0162

== ENCOUNTER 2019-06-24 10:57 | Emergency (ER) | payer SELFPAY ==
[~2019-06-24 10:57] MED LIST changes: +CIPR250T30 PO
== END 2019-06-24 11:40 | disposition left against medical advice (07) ==
LOC: ER 10:57
DX: R10.9 Unspecified abdominal pain (principal); Z53.21 Procedure and treatment not carried out due to patient leaving prior to being seen by health care provider

== ENCOUNTER 2019-07-26 17:08 | Emergency (ER) | payer SELFPAY ==
[~2019-07-26] VITALS: Ht 162.6 cm; Wt 63.5 kg
[2019-07-26] MEDS ORDERED: IV NORMAL SALINE 1000ML BAG 1,000 ML IV ONE (18:00)
[2019-07-26] MEDS ORDERED: ONDANSETRON PF 4 MG/2 ML VIAL. IV ONE (18:15)
[2019-07-26 18:51] LABS: BILIRUBIN,URINE NEGATIVE (NEG); CLARITY,URINE CLEAR; COLOR,URINE AMBER; NITRITE,URINE NEGATIVE (NEG); PROTEIN,URINE 100 mg/dL (NEG-TRACE); UROBILINOGEN,URINE 0.2 mg/dL (0.2 mg/dL)
[2019-07-26 18:54] LABS: BASO % 0 % (0-3); EOS % 0 % (0-3); HEMATOCRIT 38.1 % (36.0-47.0); LYMPH % 8 % (24-48); MEAN CORPUSCULAR HEMOGLOBIN 27 pg (25-35); MEAN CORPUSCULAR HGB CONC 34 g/dL (31-37); MEAN CORPUSCULAR VOLUME 80 fL (79-100); MONO # 0.3 x10^3/uL (0.0-1.1); MONO % 2 % (0-9); NEUT # 10.9 x10^3/uL (1.8-7.7); NEUT % 89 % (31-73); PLATELET COUNT 321 x10^3/uL (140-400); RED BLOOD COUNT 4.76 x10^6/uL (3.50-5.40); WHITE BLOOD COUNT 12.2 x10^3/uL (4.0-11.0)
--- NOTE | 2019-07-26 19:02 | PHYS DOC ---
Past Medical History Past Medical History: Anxiety, Cyclic Vomiting, Depression, Other Additional Past Medical Histor: PANIC DISORDER Past Surgical History: Cholecystectomy Alcohol Use: None Drug Use: Marijuana Adult General Chief Complaint Chief Complaint: NAUSEA/VOMITING/DIARRHA HPI HPI Patient is a 24 year old Female who presents with smoke marijuana about a week ago when I having nausea and vomiting. Patient states she's also been off of her clonazepam for 1-1/2 months because she has no doctor and no insurance. Patient states she recently got and now has no insurance. Mother is in the room with the patient and states that she is getting her in contact with [id number] that she can get back on her medications and get a primary care doctor. Patient is also complaining of anxiety for the last week and a half. Patient states she's been taking hot showers which helps her nausea and vomiting and her anxiety. We have spoken about her marijuana use and every time she uses mar ijuana she has an increase in anxiety and nausea and vomiting. Patient states she understands that this is likely the cause. Patient denies any pain at this time. Review of Systems Review of Systems Constitutional: Denies fever or chills [] Eyes: Denies change in visual acuity, redness, or eye pain [] HENT: Denies nasal congestion or sore throat [] Respiratory: Denies cough or shortness of breath [] Cardiovascular: No additional information not addressed in HPI [] GI: Denies abdominal pain, nausea, vomiting, bloody stools or diarrhea [] : Denies dysuria or hematuria [] Musculoskeletal: Denies back pain or joint pain [] Integument: Denies rash or skin lesions [] Neurologic: Denies headache, focal weakness or sensory changes [] Endocrine: Denies polyuria or polydipsia [] All other systems were reviewed and found to be within normal limits, except as documented in this note. Current Medications Current Medications Current Medications Medications (Trade) Dose Ordered Sig/[facility] Start Time Stop Time Status Last Admin Dose Admin Lorazepam (Ativan Inj) 1 mg 1X ONCE 07/26/19 18:15 07/26/19 18:16 DC 07/26/19 18:32 1 MG Ondansetron HCl (Zofran) 4 mg 1X ONCE 07/26/19 18:15 07/26/19 18:16 DC 07/26/19 18:32 4 MG Sodium Chloride 1,000 ml @ 1,000 mls/hr 1X ONCE 07/26/19 18:00 07/26/19 18:59 DC 07/26/19 18:26 1,000 MLS/HR Allergies Allergies Allergies Coded Allergies Type Severity Reaction Last Updated Verified coconut Allergy Severe Anaphylaxis 01/22/17 Yes Physical Exam Physical Exam Constitutional: Well developed, well nourished, no acute distress, non-toxic appearance. [] HENT: Normocephalic, atraumatic, bilateral external ears normal, oropharynx moist, no oral exudates, nose normal. [] Eyes: PERRLA, EOMI, conjunctiva normal, no discharge. [] Neck: Normal range of motion, no tenderness, supple, no stridor. [] Cardiovascular:Heart rate regular rhythm, no murmur [] Lungs & Thorax: Bilateral breath sounds clear to auscultation [] Abdomen: Bowel sounds normal, soft, no tenderness, no masses, no pulsatile masses. [] Skin: Warm, dry, no erythema, no rash. [] Back: No tenderness, no CVA tenderness. [] Extremities: No tenderness, no cyanosis, no clubbing, ROM intact, no edema. [] Neurologic: Alert and oriented X 3, normal motor function, normal sensory function, no focal deficits noted. [] Psychologic: Affect normal, judgement normal, mood normal. [] Current Patient Data Vital Signs Vital Signs Date Time Temp Pulse Resp B/P (MAP) Pulse Ox O2 Delivery O2 Flow Rate FiO2 07/26/19 17:40 98.4 116 22 135/83 (100) 98 Room Air 98.4 Lab Values Laboratory Tests Test 07/26/19 18:15 07/26/19 18:20 Urine Collection Type Unknown Urine Color Quin Urine Clarity Clear Urine pH 6.0 Urine Specific [place] 1.025 Urine Protein 100 mg/dL (NEG-TRACE) Urine Glucose (UA) Negative mg/dL (NEG) Urine Ketones (Stick) Negative mg/dL (NEG) Urine Blood Trace (NEG) Urine Nitrite Negative (NEG) Urine Bilirubin Negative (NEG) Urine Urobilinogen Dipstick 0.2 mg/dL (0.2 mg/dL) Urine Leukocyte Esterase Negative (NEG) Urine RBC 0 /HPF (0-2) Urine WBC 5-10 /HPF (0-4) Urine Squamous Epithelial Cells Many /LPF Urine Bacteria Few /HPF (0-FEW) Urine Mucus Marked /LPF Urine Opiates Screen Neg (NEG) Urine Methadone Screen Neg (NEG) Urine Barbiturates Neg (NEG) Urine Phencyclidine Screen Neg (NEG) Urine Amphetamine/Methamphetamine Neg (NEG) Urine Benzodiazepines Screen Neg (NEG) Urine Cocaine Screen Neg (NEG) Urine Cannabinoids Screen Pos (NEG) Urine Ethyl Alcohol Neg (NEG) White Blood Count 12.2 x10^3/uL (4.0-11.0) H Red Blood Count 4.76 x10^6/uL (3.50-5.40) Hemoglobin 13.0 g/dL (12.0-15.5) Hematocrit 38.1 % (36.0-47.0) Mean Corpuscular Volume 80 fL (79-100) Mean Corpuscular Hemoglobin 27 pg (25-35) Mean Corpuscular Hemoglobin Concent 34 g/dL (31-37) Red Cell Distribution Width 15.0 % (11.5-14.5) H Platelet Count 321 x10^3/uL (140-400) Neutrophils (%) (Auto) 89 % (31-73) H Lymphocytes (%) (Auto) 8 % (24-48) L Monocytes (%) (Auto) 2 % (0-9) Eosinophils (%) (Auto) 0 % (0-3) Basophils (%) (Auto) 0 % (0-3) Neutrophils # (Auto) 10.9 x10^3/uL (1.8-7.7) H Lymphocytes # (Auto) 1.0 x10^3/uL (1.0-4.8) Monocytes # (Auto) 0.3 x10^3/uL (0.0-1.1) Eosinophils # (Auto) 0.0 x10^3/uL (0.0-0.7) Basophils # (Auto) 0.0 x10^3/uL (0.0-0.2) Segmented Neutrophils % 84 % (35-66) H Band Neutrophils % 8 % (0-9) Lymphocytes % 5 % (24-48) L Monocytes % 3 % (0-10) Platelet Estimate Adequate (ADEQUATE) Sodium Level 133 mmol/L (136-145) L Potassium Level 3.5 mmol/L (3.5-5.1) Chloride Level 94 mmol/L (98-107) L Carbon Dioxide Level 24 mmol/L (21-32) Anion Gap 15 (6-14) H Blood Urea Nitrogen 8 mg/dL (7-20) Creatinine 0.8 mg/dL (0.6-1.0) Estimated GFR (Cockcroft-Gault) 86.7 BUN/Creatinine Ratio 10 (6-20) Glucose Level 120 mg/dL (70-99) H Calcium Level 9.3 mg/dL (8.5-10.1) Total Bilirubin 0.5 mg/dL (0.2-1.0) Aspartate Amino Transferase (AST) 49 U/L (15-37) H Alanine Aminotransferase (ALT) 56 U/L (14-59) Alkaline Phosphatase 69 U/L (46-116) Total Protein 8.9 g/dL (6.4-8.2) H Albumin 2.7 g/dL (3.4-5.0) L Albumin/Globulin Ratio 0.4 (1.0-1.7) L Laboratory Tests 07/26/19 18:20 Laboratory Tests 07/26/19 18:20 EKG EKG [] Radiology/Procedures Radiology/Procedures [] Course & Med Decision Making Course & Med Decision Making Patient is a 24 year old Female who presents with smoke marijuana about a week ago when I having nausea and vomiting. Patient states she's also been off of her clonazepam for 1-1/2 months because she has no doctor and no insurance. Patient states she recently got and now has no insurance. Mother is in the room with the patient and states that she is getting her in contact with [facility] that she can get back on her medications and get a primary care doctor. Patient is also complaining of anxiety for the last week and a half. Patient states she's been taking hot showers which helps her nausea and vomiting and her anxiety. We have spoken about her marijuana use and every time she uses marijuana she has an increase in anxiety and nausea and vomiting. Patient states she understands that this is likely the cause. Patient denies any pain at this time. Abdomen is soft and nontender. Alert and oriented. Ambulatory and steady gait. Patient denies SI or HI. 1900: Patient is sleeping comfortably. Patient has not vomited since she has been in the ED. blood work is unremarkable. Urinalysis shows dehydration. Patient got 1 L bolus of normal saline in the emergency room. Patient's heart rate is now down to 100. She'll be sent home with nausea medicine and hydroxyzine. Patient to follow up with [facility] as soon as possible. Ce Disclaimer Ce Disclaimer This electronic medical record was generated, in whole or in part, using a voice recognition dictation system. Departure Departure Impression: Primary Impression: Anxiety Additional Impression: Cyclical vomiting with nausea Disposition: HOME, SELF-CARE Condition: STABLE Referrals: NO PCP (PCP) Patient Instructions: Anxiety and Panic Attacks, Cyclic Vomiting Syndrome Additional Instructions: Follow up with [facility] as planned. Stop smoking Marijuana. Take medications as prescribed. Scripts Capsaicin (CAPSAICIN) 42.5 Gm Cream..g. 1 ADAM TP PRN TID PRN for SEE COMMENTS, #1 GM 0 Refills USE ON ABDOMEN WHEN NEEDED Prov: MARIO ATKINSON APRN 07/26/19 Ondansetron (ONDANSETRON ODT) 4 Mg Tab.rapdis 1 TAB PO PRN Q6-8HRS, #20 TAB Prov: MARIO ATKINSON APRN 07/26/19 Hydroxyzine Hcl (HYDROXYZINE HCL) 25 Mg Tablet 1 TAB PO TID, #90 TAB 2 Refills Prov: MARIO ATKINSON APRN 07/26/19 Problem Qualifiers MARIO ATKINSON APRN Jul 26, 2019 19:02
[2019-07-26 19:04] LABS: BACTERIA,URINE FEW /HPF (0-FEW); SQUAMOUS EPITHELIAL CELL,UR MANY /LPF
[2019-07-26 19:05] LABS: BARBITURATES NEG (NEG); BENZODIAZEPINES NEG (NEG); CANNABINOIDS POS (NEG); COCAINE NEG (NEG); METHADONE NEG (NEG); OPIATES NEG (NEG); PHENCYCLIDINE NEG (NEG); RBC,URINE 0 /HPF (0-2)
[2019-07-26 19:09] LABS: AMPHETAMINE/METHAMPHETAMINE NEG (NEG)
[2019-07-26 19:13] LABS: CALCIUM 9.3 mg/dL (8.5-10.1); CREATININE 0.8 mg/dL (0.6-1.0); GFR 86.7; POTASSIUM 3.5 mmol/L (3.5-5.1)
[2019-07-26 19:19] LABS: ALBUMIN 2.7 g/dL (3.4-5.0); ALBUMIN/GLOBULIN RATIO 0.4 (1.0-1.7); TOTAL BILIRUBIN 0.5 mg/dL (0.2-1.0); TOTAL PROTEIN 8.9 g/dL (6.4-8.2)
[2019-07-26 19:21] LABS: % BANDS 8 % (0-9); % LYMPHS 5 % (24-48); % MONOS 3 % (0-10); % SEGS 84 % (35-66); PLT ESTIMATE ADEQUATE (ADEQUATE)
[2019-07-26] MEDS ORDERED: HYDR25TA PO (19:30)
[2019-07-26] MEDS ORDERED: ONDA4TAB12 PO (19:30)
[2019-07-26] MEDS ORDERED: CAPS42.513 TP (19:49)
[2019-07-26 20:11] VITALS: BP 130/77
== END 2019-07-26 20:30 | disposition home or self-care (01) ==
LOC: ER 17:08
DX: R11.15 Cyclical vomiting syndrome unrelated to migraine (principal); F41.9 Anxiety disorder, unspecified; F32.9 Major depressive disorder, single episode, unspecified; F12.90 Cannabis use, unspecified, uncomplicated; Z90.49 Acquired absence of other specified parts of digestive tract; Z91.018 Allergy to other foods
CPT/HCPCS: 36415; 80053; 80307; 81001; 85007; 85025; 87086; 96361; 96374; 96375; 99284; J2060; J2405; J7030

== ENCOUNTER 2019-08-07 14:46 | Emergency (ER) | payer SELFPAY ==
[~2019-08-07] VITALS: Ht 162.6 cm; Wt 63.5 kg
[~2019-08-07 14:46] MED LIST changes: +CAPS42.513 TP; +HYDR25TA PO
[2019-08-07] MEDS ORDERED: IV NORMAL SALINE 1000ML BAG 1,000 ML IV ONE (15:45)
[2019-08-07] MEDS ORDERED: ONDANSETRON PF 4 MG/2 ML VIAL. IV ONE (15:45)
--- NOTE | 2019-08-07 15:55 | PHYS DOC ---
Past Medical History Past Medical History: Anxiety, Cyclic Vomiting, Depression, Other Additional Past Medical Histor: PANIC DISORDER (PRAVEEN DENNIS APRN) Past Surgical History: Cholecystectomy (PRAVEEN DENNIS APRN) Alcohol Use: None Drug Use: Marijuana Social History Narrative: "last use 3 weeks ago" (PRAVEEN DENNIS APRN) Attending Signature I have participated in the care of this patient and I have reviewed and agree with all pertinent clinical information above including history, exam, and recommendations. (KEREN PETTY MD) Adult General Chief Complaint Chief Complaint: ABDOMINAL PAIN HPI HPI Patient is a 24 year old female who presents to the emergency department with complaints of continuous nausea and vomiting for the last 24 hours. Patient has a history of cyclic vomiting syndrome. She states that she stopped smoking marijuana 3 weeks ago. She denies any fever, cough, congestion, ear pain, sore throat, or headache. She states she is also having bad panic attacks. Patient denies any suicidal or homicidal ideations. Currently, she rates her pain 10 out of 10 on the pain scale and describes it as diffuse stabbing. She denies any alleviating or exacerbating factors. (PRAVEEN DENNIS APRN) Review of Systems Review of Systems Constitutional: Denies fever or chills [] Eyes: Denies redness, or eye pain [] HENT: Denies nasal congestion or sore throat [] Respiratory: Denies cough or shortness of breath [] Cardiovascular: No additional information not addressed in HPI [] GI: Denies bloody stools or diarrhea; see HPI : Denies dysuria or hematuria [] Musculoskeletal: Denies back pain or joint pain [] Integument: Denies rash or skin lesions [] Neurologic: Denies headache, focal weakness or sensory changes [] Endocrine: Denies polyuria or polydipsia [] All other systems were reviewed and found to be within normal limits, except as documented in this note. (PRAVEEN DENNIS APRN) Current Medications Current Medications Current Medications Medications (Trade) Dose Ordered Sig/Arnaldo Start Time Stop Time Status Last Admin Dose Admin Fentanyl Citrate (Fentanyl 2ml Vial) 50 mcg 1X ONCE 08/07/19 18:00 08/07/19 18:03 DC 08/07/19 18:06 50 MCG Info (CONTRAST GIVEN -- Rx MONITORING) 1 each PRN DAILY PRN 08/07/19 17:45 08/07/19 19:34 DC Iohexol (Omnipaque 300 Mg/ml) 75 ml 1X ONCE 08/07/19 17:45 08/07/19 17:46 DC 08/07/19 17:45 75 ML Lorazepam (Ativan Inj) 1 mg 1X ONCE 08/07/19 17:15 08/07/19 17:16 DC 08/07/19 16:49 1 MG Ondansetron HCl (Zofran) 4 mg 1X ONCE 08/07/19 15:45 08/07/19 15:46 DC 08/07/19 15:57 4 MG Sodium Chloride 1,000 ml @ 1,000 mls/hr 1X ONCE 08/07/19 15:45 08/07/19 16:44 DC 08/07/19 15:57 1,000 MLS/HR (KEREN PETTY MD) Allergies Allergies Allergies Coded Allergies Type Severity Reaction Last Updated Verified coconut Allergy Severe Anaphylaxis 01/22/17 Yes (KEREN PETTY MD) Physical Exam Physical Exam Constitutional: Well developed, well nourished, moderate distress, non-toxic appearance, anxious. [] HENT: Normocephalic, atraumatic, bilateral external ears normal, oropharynx moist, no oral exudates, nose normal. [] Eyes: PERRLA, EOMI, conjunctiva normal, no discharge. [] Neck: Normal range of motion, no stridor. [] Cardiovascular:Heart rate regular tachycardic rhythm, no murmur [] Lungs & Thorax: Bilateral breath sounds clear to auscultation [] Abdomen: Bowel sounds normal, soft, diffuse TTP in all quadrants, no rebound tenderness, no masses, no pulsatile masses. [] Skin: Warm, dry, no erythema, no rash. [] Back: No tenderness, no CVA tenderness. [] Extremities: No cyanosis, no clubbing, ROM intact, no edema. [] Neurologic: Alert and oriented X 3, no focal deficits noted. [] Psychologic: Affect anxious, judgement normal (PRAVEEN DENNIS APRN) Current Patient Data Vital Signs Vital Signs Date Time Temp Pulse Resp B/P (MAP) Pulse Ox O2 Delivery O2 Flow Rate FiO2 08/07/19 18:49 110 20 131/91 (104) 96 Room Air 08/07/19 14:46 98.1 98.1 (KEREN PETTY MD) Lab Values Laboratory Tests Test 08/07/19 15:00 08/07/19 15:03 08/07/19 15:49 Urine Color Yellow Urine Clarity Cloudy Urine pH 7.0 Urine Specific [place] 1.025 Urine Protein 100 mg/dL (NEG-TRACE) Urine Glucose (UA) Negative mg/dL (NEG) Urine Ketones (Stick) Trace mg/dL (NEG) Urine Blood Negative (NEG) Urine Nitrite Negative (NEG) Urine Bilirubin Negative (NEG) Urine Urobilinogen Dipstick 0.2 mg/dL (0.2 mg/dL) Urine Leukocyte Esterase Negative (NEG) Urine RBC 0 /HPF (0-2) Urine WBC 1-4 /HPF (0-4) Urine Squamous Epithelial Cells Few /LPF Urine Bacteria Few /HPF (0-FEW) Urine Mucus Mod /LPF Urine Opiates Screen Neg (NEG) Urine Methadone Screen Neg (NEG) Urine Barbiturates Neg (NEG) Urine Phencyclidine Screen Neg (NEG) Urine Amphetamine/Methamphetamine Neg (NEG) Urine Benzodiazepines Screen Neg (NEG) Urine Cocaine Screen Neg (NEG) Urine Cannabinoids Screen Pos (NEG) Urine Ethyl Alcohol Neg (NEG) POC Urine HCG, Qualitative Hcg negative (Negative) White Blood Count 19.3 x10^3/uL (4.0-11.0) H Red Blood Count 4.81 x10^6/uL (3.50-5.40) Hemoglobin 12.9 g/dL (12.0-15.5) Hematocrit 38.8 % (36.0-47.0) Mean Corpuscular Volume 81 fL (79-100) Mean Corpuscular Hemoglobin 27 pg (25-35) Mean Corpuscular Hemoglobin Concent 33 g/dL (31-37) Red Cell Distribution Width 16.0 % (11.5-14.5) H Platelet Count 408 x10^3/uL (140-400) H Neutrophils (%) (Auto) 93 % (31-73) H Lymphocytes (%) (Auto) 4 % (24-48) L Monocytes (%) (Auto) 3 % (0-9) Eosinophils (%) (Auto) 0 % (0-3) Basophils (%) (Auto) 1 % (0-3) Neutrophils # (Auto) 17.9 x10^3/uL (1.8-7.7) H Lymphocytes # (Auto) 0.7 x10^3/uL (1.0-4.8) L Monocytes # (Auto) 0.6 x10^3/uL (0.0-1.1) Eosinophils # (Auto) 0.0 x10^3/uL (0.0-0.7) Basophils # (Auto) 0.1 x10^3/uL (0.0-0.2) Segmented Neutrophils % 92 % (35-66) H Lymphocytes % 5 % (24-48) L Monocytes % 3 % (0-10) Platelet Estimate Increased (ADEQUATE) Polychromasia Slight Anisocytosis Slight Sodium Level 134 mmol/L (136-145) L Potassium Level 3.9 mmol/L (3.5-5.1) Chloride Level 93 mmol/L (98-107) L Carbon Dioxide Level 26 mmol/L (21-32) Anion Gap 15 (6-14) H Blood Urea Nitrogen 16 mg/dL (7-20) Creatinine 0.8 mg/dL (0.6-1.0) Estimated GFR (Cockcroft-Gault) 86.7 BUN/Creatinine Ratio 20 (6-20) Glucose Level 115 mg/dL (70-99) H Calcium Level 10.2 mg/dL (8.5-10.1) H Total Bilirubin 0.4 mg/dL (0.2-1.0) Aspartate Amino Transferase (AST) 41 U/L (15-37) H Alanine Aminotransferase (ALT) 70 U/L (14-59) H Alkaline Phosphatase 87 U/L (46-116) Total Protein 9.7 g/dL (6.4-8.2) H Albumin 3.9 g/dL (3.4-5.0) Albumin/Globulin Ratio 0.7 (1.0-1.7) L Lipase 71 U/L (73-393) L Laboratory Tests 08/07/19 15:49 Laboratory Tests 08/07/19 15:49 (KEREN PETTY MD) EKG EKG [] (PRAVEEN DENNIS APRN) Radiology/Procedures Radiology/Procedures PROCEDURE: CT ABD PELV W/ IV CONTRST ONLY CT scan of the abdomen and pelvis with contrast 08/07/2019 CLINICAL HISTORY: Diffuse abdominal pain with vomiting and elevated white blood count. TECHNIQUE: After the intravenous administration of 75 cc of Omnipaque 300 only, contiguous, 5 mm axial sections were obtained through the abdomen and pelvis. One or more of the following individualized dose reduction techniques were utilized for this study: 1. Automated exposure control. 2. Adjustment of the mA and/or kV according to patient size. 3. Use of iterative reconstruction technique. FINDINGS: Comparison study is dated 06/27/2018. Images through the lung bases are within normal limits. The liver, spleen, pancreas, adrenal glands and kidneys are within normal limits. The abdominal aorta tapers normally. Surgical clips are seen within the gallbladder fossa consistent with a cholecystectomy. No free fluid or free air is seen within the abdomen. There is no evidence of bowel obstruction. The appendix is not visualized. No inflammatory changes are seen surrounding the cecum. Images through the pelvis demonstrate the urinary bladder distended with urine. An IUD is seen within the expected location of the endometrial canal of the uterus. Calcifications are seen throughout the pelvis consistent with phleboliths. No free fluid is seen. No adnexal mass is noted. Very mild S-shaped curvature of the thoracolumbar spine is seen. IMPRESSION: No acute abnormality is seen. [] (PRAVEEN DENNIS APRN) Course & Med Decision Making Course & Med Decision Making Pertinent Labs and Imaging studies reviewed. (See chart for details) dx: Cyclic vomiting syndrome, marijuana abuse, nonspecific abdominal pain, anxiety cbc: WBC 19.3 platelet count 408, 92 segs, 5 lymphocytes; the MP: Sodium 134, chloride 93, glucose 215, calcium 10.2, AST 41, ALTs 70, lipase 71; UA is unremarkable, urine drug screen is positive for cannabinoids. CT abdomen and pelvis was negative for any acute findings Patient was given Toradol of 2 mg of Ativan for anxiety IV, she also was given 1 L of normal saline, 4 mg of Zofran, and 50 g of fentanyl in the emergency department. Every time this provider Ronnie to the patient's room to evaluate patient patient was found lying on her side asleep with the lights off. As soon as this provider would turn the lights on the patient will begin moaning and complaining of pain and requesting medications. No acute findings were found on physical exam or workup. Patient was prescribed 25 mg Phenergan suppositories to use for nausea she was instructed to stop using marijuana and encouraged to fo llow up with a psychiatrist about her anxiety. She was instructed to return to the emergency room if symptoms worsen. Patient verbalized an understanding of home care, medications, follow-up, and return to ED instructions and was in agreement with the plan of care. [] (PRAVEEN DENNIS APRN) Dragon Disclaimer Dragon Disclaimer This electronic medical record was generated, in whole or in part, using a voice recognition dictation system. (PRAVEEN DENNIS APRN) Departure Departure Impression: Primary Impression: Anxiety Additional Impressions: Cyclical vomiting with nausea Marijuana use Pain, abdominal, nonspecific Disposition: 01 HOME, SELF-CARE Condition: STABLE Referrals: NO PCP (PCP) Patient Instructions: Abdominal Pain (Nonspecific), Anxiety and Panic Attacks, [id number], Cyclic Vomiting Syndrome Additional Instructions: Stop using marijuana. Follow up with your primary care doctor or a psychiatrist about your anxiety. Fill prescriptions and use them as directed. Recommend clear fluids for the next 24 hours. Then you may advance to bland foods such as bananas, rice, applesauce, and dry toast. Follow-up with your primary care doctor in the next 1-2 days. Return to the emergency room if your symptoms wo rsen. Scripts Promethazine Hcl (PROMETHAZINE HCL) 25 Mg Supp.rect 25 MG RC Q6H PRN for NAUSEA/VOMITING for 3 Days, #12 SUPP.RECT 0 Refills Prov: PRAVEEN DENNIS APRN 08/07/19 Problem Qualifiers PRAVEEN DENNIS APRN Aug 07, 2019 15:55 KEREN PETTY MD Aug 08, 2019 06:10
[2019-08-07 15:59] LABS: BASO # 0.1 x10^3/uL (0.0-0.2); BASO % 1 % (0-3); EOS % 0 % (0-3); HEMATOCRIT 38.8 % (36.0-47.0); HEMOGLOBIN 12.9 g/dL (12.0-15.5); LYMPH # 0.7 x10^3/uL (1.0-4.8); LYMPH % 4 % (24-48); MEAN CORPUSCULAR HEMOGLOBIN 27 pg (25-35); MEAN CORPUSCULAR HGB CONC 33 g/dL (31-37); MEAN CORPUSCULAR VOLUME 81 fL (79-100); MONO # 0.6 x10^3/uL (0.0-1.1); MONO % 3 % (0-9); NEUT # 17.9 x10^3/uL (1.8-7.7); NEUT % 93 % (31-73); PLATELET COUNT 408 x10^3/uL (140-400); RED BLOOD COUNT 4.81 x10^6/uL (3.50-5.40); WHITE BLOOD COUNT 19.3 x10^3/uL (4.0-11.0)
[2019-08-07 16:00] LABS: BILIRUBIN,URINE NEGATIVE (NEG); CLARITY,URINE CLOUDY; COLOR,URINE YELLOW; NITRITE,URINE NEGATIVE (NEG); PROTEIN,URINE 100 mg/dL (NEG-TRACE); UROBILINOGEN,URINE 0.2 mg/dL (0.2 mg/dL)
[2019-08-07 16:06] LABS: CALCIUM 10.2 mg/dL (8.5-10.1); CREATININE 0.8 mg/dL (0.6-1.0); GFR 86.7; POTASSIUM 3.9 mmol/L (3.5-5.1)
[2019-08-07 16:10] LABS: BACTERIA,URINE FEW /HPF (0-FEW); RBC,URINE 0 /HPF (0-2)
[2019-08-07 16:11] LABS: SQUAMOUS EPITHELIAL CELL,UR FEW /LPF
[2019-08-07 16:12] LABS: ALBUMIN 3.9 g/dL (3.4-5.0); ALBUMIN/GLOBULIN RATIO 0.7 (1.0-1.7); TOTAL BILIRUBIN 0.4 mg/dL (0.2-1.0); TOTAL PROTEIN 9.7 g/dL (6.4-8.2)
[2019-08-07 16:28] LABS: BARBITURATES NEG (NEG); BENZODIAZEPINES NEG (NEG); CANNABINOIDS POS (NEG); COCAINE NEG (NEG); METHADONE NEG (NEG); OPIATES NEG (NEG); PHENCYCLIDINE NEG (NEG)
[2019-08-07 16:32] LABS: AMPHETAMINE/METHAMPHETAMINE NEG (NEG)
[2019-08-07] MEDS ORDERED: IOHEXOL 300 MG/ML 100ML VIAL. IV ONE (17:45)
[2019-08-07] MEDS ORDERED: CONTRAST GIVEN. MC PRN (17:45)
[2019-08-07] MEDS ORDERED: fentaNYL PF VIAL 100 MCG/2 ML VIAL IVP ONE (18:00)
[2019-08-07 18:07] LABS: % LYMPHS 5 % (24-48); % MONOS 3 % (0-10); % SEGS 92 % (35-66)
[2019-08-07 18:08] LABS: ANISOCYTOSIS SLIGHT; PLT ESTIMATE INCREASED (ADEQUATE); POLYCHROMASIA SLIGHT
[2019-08-07 18:49] VITALS: BP 131/91
--- NOTE | 2019-08-07 18:58 | RAD ---
CT scan of the abdomen and pelvis with contrast 08/07/2019 CLINICAL HISTORY: Diffuse abdominal pain with vomiting and elevated white blood count. TECHNIQUE: After the intravenous administration of 75 cc of Omnipaque 300 only, contiguous, 5 mm axial sections were obtained through the abdomen and pelvis. One or more of the following individualized dose reduction techniques were utilized for this study: 1. Automated exposure control. 2. Adjustment of the mA and/or kV according to patient size. 3. Use of iterative reconstruction technique. FINDINGS: Comparison study is dated 06/27/2018. Images through the lung bases are within normal limits. The liver, spleen, pancreas, adrenal glands and kidneys are within normal limits. The abdominal aorta tapers normally. Surgical clips are seen within the gallbladder fossa consistent with a cholecystectomy. No free fluid or free air is seen within the abdomen. There is no evidence of bowel obstruction. The appendix is not visualized. No inflammatory changes are seen surrounding the cecum. Images through the pelvis demonstrate the urinary bladder distended with urine. An IUD is seen within the expected location of the endometrial canal of the uterus. Calcifications are seen throughout the pelvis consistent with phleboliths. No free fluid is seen. No adnexal mass is noted. Very mild S-shaped curvature of the thoracolumbar spine is seen. IMPRESSION: No acute abnormality is seen. Electronically signed by: Sven Leo MD (08/07/2019 6:55 PM) [facility]
[2019-08-07] MEDS ORDERED: PROM25SU33 RC (19:13)
== END 2019-08-07 19:20 | disposition home or self-care (01) ==
LOC: ER 14:46
DX: R11.15 Cyclical vomiting syndrome unrelated to migraine (principal); R10.84 Generalized abdominal pain; F41.9 Anxiety disorder, unspecified; F12.90 Cannabis use, unspecified, uncomplicated; F32.9 Major depressive disorder, single episode, unspecified; Z91.018 Allergy to other foods
CPT/HCPCS: 36415; 74177; 80053; 80307; 81001; 81025; 83690; 85007; 85025; 96361; 96374; 96375; 96376; 99285; J2060; J2405; J3010; J7030; Q9967

== ENCOUNTER 2019-08-08 10:49 | Emergency (ER) | payer SELFPAY ==
[~2019-08-08] VITALS: Ht 162.6 cm; Wt 63.5 kg
[~2019-08-08 10:49] MED LIST changes: +PROM25SU33 RC
[2019-08-08 11:21] VITALS: BP 140/85
--- NOTE | 2019-08-08 11:40 | PHYS DOC ---
Past Medical History Past Medical History: Anxiety, Cyclic Vomiting, Depression, Other Additional Past Medical Histor: PANIC DISORDER Past Surgical History: Cholecystectomy Alcohol Use: None Drug Use: Marijuana Adult General Chief Complaint Chief Complaint: ANXIETY/PANIC ATTACK HPI HPI 24-year-old female with known history of cyclic vomiting, hiatal hernia, chronic nausea, marijuana use, frequent ER visits presents to the emergency department with similar complaints as yesterday with complaints of abdominal pain, anxiety. Patient had full workup yesterday was CT examination laboratory studies of which were all unremarkable. Patient presented today with similar complaints. Nothing makes her symptoms worse or better, she states she wakes up like this cant control her anxiety. Review of Systems Review of Systems Constitutional: Denies fever or chills [] Respiratory: Denies cough or shortness of breath [] Cardiovascular: No additional information not addressed in HPI [] GI: Abdominal pain, nausea Integument: Denies rash or skin lesions [] Neurologic: Denies headache, focal weakness or sensory changes [] All other systems were reviewed and found to be within normal limits, except as documented in this note. Current Medications Current Medications Current Medications Medications (Trade) Dose Ordered Sig/Arnaldo Start Time Stop Time Status Last Admin Dose Admin Lorazepam (Ativan Inj) 2 mg 1X ONCE 08/08/19 11:45 08/08/19 11:46 DC 08/08/19 11:49 2 MG Ondansetron HCl (Zofran Odt) 4 mg 1X ONCE 08/08/19 11:45 08/08/19 11:46 DC 08/08/19 11:52 4 MG Allergies Allergies Allergies Coded Allergies Type Severity Reaction Last Updated Verified coconut Allergy Severe Anaphylaxis 01/22/17 Yes Physical Exam Physical Exam Constitutional: Well developed, well nourished, anxious [] HENT: Normocephalic, atraumatic, bilateral external ears normal, oropharynx moist, no oral exudates, nose normal. [] Eyes: PERRLA, EOMI, conjunctiva normal, no discharge. [] Cardiovascular:Heart rate regular rhythm, no murmur [] Lungs & Thorax: Bilateral breath sounds clear to auscultation [] Abdomen: Bowel sounds normal, soft, no tenderness, no masses, no pulsatile masses. [] Skin: Warm, dry, no erythema, no rash. [] Back: No tenderness, no CVA tenderness. [] Extremities: No tenderness, no cyanosis, no clubbing, ROM intact, no edema. [] Neurologic: Alert and oriented X 3, no focal deficits noted. [] Psychologic: Anxious. [] Current Patient Data Vital Signs Vital Signs Date Time Temp Pulse Resp B/P (MAP) Pulse Ox O2 Delivery O2 Flow Rate FiO2 08/08/19 11:21 97.9 128 24 140/85 (103) 99 Room Air 97.9 EKG EKG [] Radiology/Procedures Radiology/Procedures [] Course & Med Decision Making Course & Med Decision Making Pertinent Labs and Imaging studies reviewed. (See chart for details) []24-year-old female with known history of cyclic vomiting, hiatal hernia, chronic nausea, marijuana use, frequent ER visits presents to the emergency department with similar complaints as yesterday with complaints of abdominal pain, anxiety. Patient had full workup yesterday was CT examination laboratory studies of which were all unremarkable. Patient presented today with similar complaints. Nothing makes her symptoms worse or better, she states she wakes up like this cant control her anxiety. 2mg ativan IM provided Zofran ODT Informed patient she would not be getting narcotic pain medications for her visit today She is requesting dc home Dragon Disclaimer Dragon Disclaimer This electronic medical record was generated, in whole or in part, using a voice recognition dictation system. Departure Departure Impression: Primary Impression: Anxiety Additional Impression: Pain, abdominal, nonspecific Disposition: 01 HOME, SELF-CARE Condition: STABLE Referrals: NO PCP (PCP) Patient Instructions: Abdominal Pain (Nonspecific), Anxiety and Panic Attacks, [id number] Additional Instructions: Recommend follow up with PCP 3 - 5 days Return to the ER with worsening symptoms, intractable pain, fever, altered mental status Tylenol/Motrin as needed for pain Problem Qualifiers KEREN PETTY MD Aug 08, 2019 11:40
[2019-08-08] MEDS ORDERED: ONDANSETRON ODT 4 MG TAB.RAPDIS. PO ONE (11:45)
== END 2019-08-08 12:01 | disposition home or self-care (01) ==
LOC: ER 10:49
DX: F41.9 Anxiety disorder, unspecified (principal); R10.84 Generalized abdominal pain; F32.9 Major depressive disorder, single episode, unspecified; Z90.49 Acquired absence of other specified parts of digestive tract; Z91.018 Allergy to other foods
CPT/HCPCS: 96372; 99284; J2060; Q0162

== ENCOUNTER 2019-09-16 00:22 | Emergency (ER) | payer SELFPAY ==
[~2019-09-16] VITALS: Ht 165.1 cm; Wt 63.5 kg
[2019-09-16 00:37] VITALS: BP 129/68
--- NOTE | 2019-09-16 00:51 | PHYS DOC ---
Past Medical History Past Medical History: Anxiety, Cyclic Vomiting, Depression, Other Additional Past Medical Histor: PANIC DISORDER, Chronic abdominal pain Past Surgical History: Cholecystectomy Smoking: Cigarettes Alcohol Use: None Drug Use: Marijuana Adult General Chief Complaint Chief Complaint: ABDOMINAL PAIN HPI HPI 24-year-old female with past medical history of chronic abdominal pain, cyclic vomiting syndrome, anxiety, and chronic marijuana abuse presents with report of.worsening abdominal pain and anxiety which started 2 days ago. Patient with frequent ED visits for same. Most recently patient with full laboratory evaluation and CT imaging on 08/07/19. Patient reports she thought her symptoms will subside however have continued. Patient reports she continues to smoke marijuana. Patient unsure if she might be . Denies trauma. Denies fever or chills. Review of Systems Review of Systems Constitutional: Denies fever or chills Eyes: Denies redness or eye pain HENT: Denies nasal congestion or sore throat Respiratory: Denies cough or shortness of breath Cardiovascular: Denies chest pain or palpitations GI: Reports abdominal pain, nausea, and vomiting : Denies dysuria or hematuria Musculoskeletal: Denies back pain or joint pain Integument: Denies rash or skin lesions Neurologic: Denies headache, focal weakness or sensory changes Psychiatric: Reports continued marijuana abuse, reports anxiety Complete systems were reviewed and found to be within normal limits, except as documented in this note. Allergies Allergies Allergies Coded Allergies Type Severity Reaction Last Updated Verified coconut Allergy Severe Anaphylaxis 01/22/17 Yes Physical Exam Physical Exam Constitutional: Well developed, well nourished, anxious, non-toxic appearance HENT: Normocephalic, atraumatic, oropharynx moist Eyes: Conjunctiva normal, no discharge Neck: Normal range of motion, no tenderness, supple Cardiovascular: Heart rate normal, regular rhythm Lungs & Thorax: Bilateral breath sounds clear to auscultation, no wheezing, hyperventilation Abdomen: Soft, no guarding/rebound tenderness/distention Skin: Warm, dry, no erythema, no rash Back: No tenderness, no CVA tenderness Extremities: No tenderness, ROM intact, no edema Neurologic: Alert and oriented X 3, no focal deficits noted Psychologic: Affect anxious EKG EKG [] Radiology/Procedures Radiology/Procedures [] Course & Med Decision Making Course & Med Decision Making Patient well known to the emergency department with history of anxiety, cyclic vomiting syndrome, chronic abdominal pain with continued marijuana abuse presents with symptoms similar to prior evaluations. History of recent CT imaging on 08/07/2019. She appears to be very anxious however vital signs are stable. Abdominal pain does not appear to be peritoneal and is chronic in nature. Patient seen and evaluated with MSE completed. NO life threatening illness appears present. Patient was offered IVF, laboratory evaluation, and medications. Per [facility] initiative, patient offered further evaluation and treatment after self pay [employer]-PA[employer] collection. Patient opted to leave against medical advice rather than pursue further evaluation and treatment. Patient walked with steady gait without distress straight out of ED and to parking lot. Dragon Disclaimer Dragon Disclaimer This electronic medical record was generated, in whole or in part, using a voice recognition dictation system. Departure Departure Impression: Primary Impression: Chronic abdominal pain Additional Impression: Marijuana abuse Disposition: 07 AGAINST MEDICAL ADVICE Condition: GUARDED Referrals: NO PCP (PCP) Problem Qualifiers ANGELINA MASSEY DO Sep 16, 2019 00:51
== END 2019-09-16 00:45 | disposition left against medical advice (07) ==
LOC: ER 00:22
DX: G89.29 Other chronic pain (principal); R10.9 Unspecified abdominal pain; F12.10 Cannabis abuse, uncomplicated; F17.210 Nicotine dependence, cigarettes, uncomplicated; F41.9 Anxiety disorder, unspecified; F32.9 Major depressive disorder, single episode, unspecified; F41.0 Panic disorder [episodic paroxysmal anxiety]; Z90.49 Acquired absence of other specified parts of digestive tract; Z91.018 Allergy to other foods
CPT/HCPCS: 81025; 99282

== ENCOUNTER 2020-12-26 12:10 | Emergency (ER) | payer SELFPAY ==
[~2020-12-26] VITALS: Ht 162.6 cm; Wt 75.0 kg
[~2020-12-26 12:10] MED LIST changes: -CAPS42.513 TP; +CAPS42.514 TP
[2020-12-26 12:42] VITALS: BP 123/67
--- NOTE | 2020-12-26 13:28 | PHYS DOC ---
Past Medical History Past Medical History: Anxiety, Cyclic Vomiting, Depression, Other Additional Past Medical Histor: PANIC DISORDER, Chronic abdominal pain Past Surgical History: Cholecystectomy Smoking Status: Current Some Day Smoker Additional Information: "I SMOKE MARIJUANA, NOT CIGARETTES." Alcohol Use: None Drug Use: Marijuana General Adult EDM: Chief Complaint: LOWER BACK PAIN OR INJURY HPI: HPI: Patient is a 25 year old female who presented to ER due to pain in her coccyx area. Patient says she was hiking outside 2 days ago, fell down on her buttock. Since she had pain whenever she sit on her tailbone area. Patient denies any nausea vomiting, no abdominal pain, no cough or fever. Review of Systems: Review of Systems: Constitutional: Denies fever or chills. [] Eyes: Denies change in visual acuity. [] HENT: Denies nasal congestion or sore throat. [] Respiratory: Denies cough or shortness of breath. [] Cardiovascular: Denies chest pain or edema. [] GI: Denies abdominal pain, nausea, vomiting, bloody stools or diarrhea. [] : Denies dysuria. [] Musculoskeletal: Denies back pain , positive for buttock pain Integument: Denies rash. [] Neurologic: Denies headache, focal weakness or sensory changes. [] Endocrine: Denies polyuria or polydipsia. [] Lymphatic: Denies swollen glands. [] Psychiatric: Denies depression or anxiety. [] Heart Score: C/O Chest Pain: N/A Risk Factors: Risk Factors: DM, Current or recent (<one month) smoker, HTN, HLP, family history of CAD, obesity. 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 [] Cardiovascular:Heart rate regular rhythm, no murmur [] Lungs & Thorax: Bilateral breath sounds clear to auscultation [] Abdomen: Bowel sounds normal, soft, no tenderness, no masses, no pulsatile masses. [] Skin: Warm, dry, no erythema, no rash. [] Back: No tenderness, no CVA tenderness. There is point tender to palpation in the coccyx area Extremities: No tenderness, no cyanosis, no clubbing, ROM intact, no edema. [] Neurologic: Alert and oriented X 3, normal motor function, normal sensory function, no focal deficits noted. [] Psychologic: Affect normal, judgement normal, mood normal. [] Current Patient Data: Vital Signs: Vital Signs Date Time Temp Pulse Resp B/P (MAP) Pulse Ox O2 Delivery O2 Flow Rate FiO2 12/26/20 12:42 97.3 85 12 123/67 (85) 97 Room Air 97.3 EKG: EKG: [] Radiology/Procedures: Radiology/Procedures: [][facility] [address] [place] [address] IMAGING REPORT Signed PATIENT: BILL GONZÁLES ACCOUNT: [id number] : 1995 LOCATION: ER AGE: 25 SEX: F EXAM STATUS: REG ER ORD. PHYSICIAN: BIENVENIDO RAMIREZ DO REASON: FELL ON A ROCK, TAILBONE PAIN PROCEDURE: SACRUM & COCCYX 3V XR SACRUM AND COCCYX 2+VIEWS History: Reason: FELL ON A ROCK, TAILBONE PAIN / Spl. Instructions: / History: Technique: 3 views coccyx and sacrum. Comparison: None. Findings: Normal alignment of the sacrum. Symmetric sacroiliac joints. IUD projecting over the pelvis. Normal alignment of the coccyx. No definite fracture. Impression: 1. No acute osseous abnormality. Electronically signed by: Jose Manuel Simons DO (12/26/2020 1:24 PM) [facility] DICTATED and SIGNED BY: JOSE MANUEL SIMONS DO DATE: 12/26/20 [id number] 0 Course & Med Decision Making: Course & Med Decision Making Pertinent Labs and Imaging studies reviewed. (See chart for details) [] Dragon Disclaimer: Dragon Disclaimer: This electronic medical record was generated, in whole or in part, using a voice recognition dictation system. Departure Departure Impression: Primary Impression: Coccyx contusion Disposition: 01 DC HOME SELF CARE/HOMELESS Condition: STABLE Referrals: NO PCP (PCP) FOLLOW UP WITH YOUR DOCTOR NEEDED Patient Instructions: Tailbone Injury Additional Instructions: [facility] [address] [place] [address] [facility] [address] [place] [address] [facility] [address] [facility] [place] [address] [facility] [address] [place] [address] [facility] [address] [place] [address] [facility] [address] [place] [address] [facility] [address] [place] [address] [facility] [address] [place] [address] [facility] [address] [place] [address] [facility] [address] [place] [address] BIENVENIDO RAMIREZ DO Dec 26, 2020 13:28
== END 2020-12-26 13:45 | disposition home or self-care (01) ==
LOC: ER 12:10
DX: S30.0XXA Contusion of lower back and pelvis, initial encounter (principal); G89.29 Other chronic pain; F17.200 Nicotine dependence, unspecified, uncomplicated; Z90.49 Acquired absence of other specified parts of digestive tract; W18.39XA Other fall on same level, initial encounter; Y93.01 Activity, walking, marching and hiking; Y92.89 Other specified places as the place of occurrence of the external cause; Z91.018 Allergy to other foods; Y99.8 Other external cause status
CPT/HCPCS: 72220; 99284

== ENCOUNTER 2021-03-29 19:29 | Emergency (ER) | payer SELFPAY ==
[~2021-03-29] VITALS: Ht 162.6 cm; Wt 75.0 kg
--- NOTE | 2021-03-29 20:49 | PHYS DOC ---
Past Medical History Past Medical History: Anxiety, Cyclic Vomiting, Depression, Other Additional Past Medical Histor: PANIC DISORDER, Chronic abdominal pain Past Surgical History: Cholecystectomy Smoking Status: Current Some Day Smoker Alcohol Use: None Drug Use: Marijuana General Adult EDM: Chief Complaint: SUICDAL IDEATION HPI: HPI: Patient is a 25 year old female well-known to this ED, history of depression, anxiety, cyclic vomiting, who presents to the ED today to be evaluated for suicidal ideations. Patient is very tearful. States her plan is to use a knife to cut herself. She states she has already cut herself several times to the left upper extremity today and previously. Denies any homicidal ideations. Review of Systems: Review of Systems: Constitutional: Denies fever or chills. [] Eyes: Denies change in visual acuity. [] HENT: Denies nasal congestion or sore throat. [] Respiratory: Denies cough or shortness of breath. [] Cardiovascular: Denies chest pain or edema. [] GI: Denies abdominal pain, nausea, vomiting, bloody stools or diarrhea. [] : Denies dysuria. [] Musculoskeletal: Denies back pain or joint pain. [] Integument: Reports left upper extremity lacerations Neurologic: Denies headache, focal weakness or sensory changes. [] Psychiatric: Reports suicidal ideations Heart Score: C/O Chest Pain: N/A Risk Factors: Risk Factors: DM, Current or recent (<one month) smoker, HTN, HLP, family history of CAD, obesity. 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 [] HENT: Normocephalic, atraumatic, bilateral external ears normal, oropharynx moist, no oral exudates, nose normal. [] Eyes: PERRLA, EOMI, conjunctiva normal, no discharge. [] Neck: Normal range of motion, no tenderness, supple, no stridor. [] Cardiovascular:Heart rate regular rhythm, no murmur [] Lungs & Thorax: Bilateral breath sounds clear to auscultation [] Abdomen: Bowel sounds normal, soft, no tenderness, no masses, no pulsatile masses. [] Skin: Multiple superficial lacerations noted on the left biceps, old healed lacerations noted on the left forearm Back: No tenderness, no CVA tenderness. [] Extremities: No tenderness, no cyanosis, no clubbing, ROM intact, no edema. [] Neurologic: Alert and oriented X 3, normal motor function, normal sensory function, no focal deficits noted. [] Psychologic: Flat affect, tearful. EKG: EKG: [] Radiology/Procedures: Radiology/Procedures: [] Course & Med Decision Making: Course & Med Decision Making Pertinent Labs and Imaging studies reviewed. (See chart for details) This is a 25-year-old female patient well-known to this ED presenting today for suicidal ideations. Patient plan is using a knife to cut her herself Labs are negative for any acute findings, aMría from the pat team came and evaluated patient, safety plan was established and she was discharged to home. Urine is grossly contaminated. Dragon Disclaimer: DragAutomile Disclaimer: This electronic medical record was generated, in whole or in part, using a voice recognition dictation system. Departure Departure Impression: Primary Impression: Suicidal ideations Additional Impression: Laceration of upper arm Qualified Codes: S41.112A - Laceration without foreign body of left upper arm, initial encounter Disposition: HOME / SELF CARE / HOMELESS Condition: STABLE Referrals: NO PCP (PCP) Please follow-up with the resources provided by María gonzales Patient Instructions: Suicidal Feelings, How to Help Yourself Additional Instructions: You were evaluated in the emergency room for suicidal ideations. Please follow- up with the resources provided by María. Apply Neosporin to the laceration sites on your arm. Come back to the ED at any point symptoms worsen BRIDGET ZAPATA TELEGRAPHIC INSTRUMENT SUPERVISOR Mar 29, 2021 20:49
[2021-03-29 20:50] LABS: BILIRUBIN,URINE NEGATIVE (NEG); CLARITY,URINE CLEAR; COLOR,URINE YELLOW; NITRITE,URINE NEGATIVE (NEG); PH,URINE 5.5 (<5.0-8.0); PROTEIN,URINE NEGATIVE (NEG-TRACE); UROBILINOGEN,URINE 0.2 mg/dL (0.2 mg/dL)
[2021-03-29 20:54] LABS: BACTERIA,URINE MOD /HPF (0-FEW)
[2021-03-29 20:58] LABS: BARBITURATES NEG (NEG); BENZODIAZEPINES POS (NEG); CANNABINOIDS POS (NEG); COCAINE NEG (NEG); METHADONE NEG (NEG); OPIATES NEG (NEG); PHENCYCLIDINE NEG (NEG)
[2021-03-29 21:00] LABS: AMPHETAMINE/METHAMPHETAMINE NEG (NEG)
[2021-03-29 21:07] LABS: BASO # 0.1 x10^3/uL (0.0-0.2); BASO % 1 % (0-3); EOS # 0.2 x10^3/uL (0.0-0.7); EOS % 2 % (0-3); HEMATOCRIT 43.9 % (36.0-47.0); HEMOGLOBIN 15.1 g/dL (12.0-15.5); LYMPH # 3.4 x10^3/uL (1.0-4.8); LYMPH % 33 % (24-48); MEAN CORPUSCULAR HEMOGLOBIN 29 pg (25-35); MEAN CORPUSCULAR HGB CONC 34 g/dL (31-37); MEAN CORPUSCULAR VOLUME 85 fL (79-100); MONO # 0.8 x10^3/uL (0.0-1.1); MONO % 8 % (0-9); NEUT # 5.6 x10^3/uL (1.8-7.7); NEUT % 56 % (31-73); PLATELET COUNT 261 x10^3/uL (140-400); RED BLOOD COUNT 5.15 x10^6/uL (3.50-5.40); RED CELL DISTRIBUTION WIDTH 13.4 % (11.5-14.5); WHITE BLOOD COUNT 10.1 x10^3/uL (4.0-11.0)
[2021-03-29 21:19] LABS: CALCIUM 9.2 mg/dL (8.5-10.1); CREATININE 0.8 mg/dL (0.6-1.0); POTASSIUM 4.1 mmol/L (3.5-5.1)
[2021-03-29 21:23] LABS: ACETAMIN < 2 mcg/ml (10-30); ETHANOL < 10 mg/dL (0-10); SALIC < 2.8 mg/dL (2.8-20.0)
[2021-03-29 21:25] LABS: ALBUMIN 4.2 g/dL (3.4-5.0); ALBUMIN/GLOBULIN RATIO 1.1 (1.0-1.7); TOTAL BILIRUBIN 0.4 mg/dL (0.2-1.0); TOTAL PROTEIN 8.2 g/dL (6.4-8.2)
[2021-03-29 22:15] VITALS: BP 136/90
--- NOTE | 2021-03-31 09:21 | NUR ---
IP: Informed pt of negative covid test. pt verbalized understanding.
== END 2021-03-29 22:20 | disposition home or self-care (01) ==
LOC: ER 19:29
DX: S41.112A Laceration without foreign body of left upper arm, initial encounter (principal); R45.851 Suicidal ideations; G89.29 Other chronic pain; F17.200 Nicotine dependence, unspecified, uncomplicated; Z90.49 Acquired absence of other specified parts of digestive tract; Z91.018 Allergy to other foods; X78.1XXA Intentional self-harm by knife, initial encounter; Y93.89 Activity, other specified; Y92.89 Other specified places as the place of occurrence of the external cause; Y99.8 Other external cause status
CPT/HCPCS: 36415; 80053; 80307; 80329; 81001; 81025; 83690; 85025; 87426; 99285; G0480; U0003; U0005

== ENCOUNTER 2021-08-24 14:34 | Emergency (ER) | payer SELFPAY ==
[~2021-08-24] VITALS: Ht 162.6 cm; Wt 74.5 kg
[~2021-08-24 14:34] MED LIST changes: +POTA-121 PO; -POTA20TA4 PO
[2021-08-24 15:12] LABS: BILIRUBIN,URINE NEGATIVE (NEG); CLARITY,URINE CLEAR; COLOR,URINE YELLOW; NITRITE,URINE NEGATIVE (NEG); PROTEIN,URINE NEGATIVE (NEG-TRACE); UROBILINOGEN,URINE 0.2 mg/dL (0.2 mg/dL)
[2021-08-24 15:30] LABS: BACTERIA,URINE FEW /HPF (0-FEW)
--- NOTE | 2021-08-24 16:56 | PHYS DOC ---
Past Medical History Past Medical History: Anxiety, Cyclic Vomiting, Depression, Other Additional Past Medical Histor: PANIC DISORDER, Chronic abdominal pain Past Surgical History: Cholecystectomy Smoking Status: Never Smoker Alcohol Use: None Drug Use: Marijuana General Adult EDM: Chief Complaint: BACK PAIN OR INJURY HPI: HPI: Patient is a 26-year-old female presents to the emergency department concerning left and right sided mid back pain for the past 3-1/2 weeks. Patient reports a thunderclap onset, denies traumatic injury to her back. Reports trying heating pads that have not helped. Denies seeing blood in her urine, denies urinary pressure, denies urinary burning or increased urinary frequency, denies STI concerns, denies rashes or lesions to her vagina, denies vaginal discharge. Patient denies nausea, vomiting, diarrhea or abdominal pains. Patient denies shortness of breath or chest pains. Patient denies other physical complaints or physical concerns. Review of Systems: Review of Systems: 14 body systems of review of systems have been reviewed. See HPI for pertinent positives and negative responses, otherwise all other systems are negative, nonpertinent or noncontributory. Constitutional: Negative except as outlined in HPI above. Skin: Negative except as outlined in HPI above. Eyes: Negative except as outlined in HPI above. HENT: Negative except as outlined in HPI above. Respiratory: Negative except as outlined in HPI above. Cardiovascular: Negative except as outlined in HPI above. GI: Negative except as outlined in HPI above. : Negative except as outlined in HPI above. Musculoskeletal: Negative except as outlined in HPI above. Integument: Negative except as outlined in HPI above. Neurologic: Negative except as outlined in HPI above. Endocrine: Negative except as outlined in HPI above. Lymphatic: Negative except as outlined in HPI above. Psychiatric: Negative except as outlined in HPI above. Heart Score: C/O Chest Pain: No Risk Factors: Risk Factors: DM, Current or recent (<one month) smoker, HTN, HLP, family history of CAD, obesity. 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 26-year-old female in no apparent distress. HENT: Normocephalic, atraumatic. Eyes: Conjunctiva normal, no discharge. Neck: Normal range of motion, no stridor. Cardiovascular: No cyanosis appreciated, distal cap refill less than 2 seconds. Lungs & Thorax: Patient is in no respiratory distress, no audible adventitious lung sounds appreciated. Abdomen: Nontender, no abnormalities noted. Skin: Warm, dry, no erythema, no rash. Back: No midline spinal tenderness, no deformities appreciated, positive left and right-sided CVA TTP. Extremities: No tenderness, no cyanosis, no clubbing, ROM intact, no edema. Neurologic: Alert and oriented X 3, normal motor function, normal sensory function, no focal deficits noted. Psychologic: Affect normal, judgement normal, mood normal. Current Patient Data: Labs: Laboratory Tests Test 08/24/21 14:55 08/24/21 15:01 Urine Collection Type Void Urine Color Yellow Urine Clarity Clear Urine pH 5.0 Urine Specific [place] >=1.030 Urine Protein Negative mg/dL Urine Glucose (UA) Negative mg/dL Urine Ketones (Stick) Negative mg/dL Urine Blood Negative Urine Nitrite Negative Urine Bilirubin Negative Urine Urobilinogen Dipstick 0.2 mg/dL Urine Leukocyte Esterase Negative Urine RBC 1-2 /HPF Urine WBC 1-4 /HPF Urine Squamous Epithelial Cells Mod /LPF Urine Bacteria Few /HPF Urine Mucus Mod /LPF Bedside Urine HCG, Qualitative Hcg negative Laboratory Tests Test 08/24/21 14:55 08/24/21 15:01 Urine Collection Type Void Urine Color Yellow Urine Clarity Clear Urine pH 5.0 (<5.0-8.0) Urine Specific [place] >=1.030 (1.000-1.030) Urine Protein Negative mg/dL (NEG-TRACE) Urine Glucose (UA) Negative mg/dL (NEG) Urine Ketones (Stick) Negative mg/dL (NEG) Urine Blood Negative (NEG) Urine Nitrite Negative (NEG) Urine Bilirubin Negative (NEG) Urine Urobilinogen Dipstick 0.2 mg/dL (0.2 mg/dL) Urine Leukocyte Esterase Negative (NEG) Urine RBC 1-2 /HPF (0-2) Urine WBC 1-4 /HPF (0-4) Urine Squamous Epithelial Cells Mod /LPF Urine Bacteria Few /HPF (0-FEW) Urine Mucus Mod /LPF POC Urine HCG, Qualitative Hcg negative (Negative) Vital Signs: Vital Signs Date Time Temp Pulse Resp B/P (MAP) Pulse Ox O2 Delivery O2 Flow Rate FiO2 08/24/21 14:41 98.2 105 17 143/82 (102) 98 Room Air 98.2 EKG: EKG: [] Radiology/Procedures: Radiology/Procedures: [] Course & Med Decision Making: Course & Med Decision Making Pertinent Labs and Imaging studies reviewed. (See chart for details) 18-year-old female, vital signs reviewed, presents emergency department concer roselyn mid back pain for the past 3 and half weeks. Physical examination concerning for possible UTI versus pyelonephritis versus kidney stone. Will order urinalysis assay and urine test. At 1530 shortly after obtaining urine to send to lab, patient's primary ED nurse reports patient is leaving AGAINST MEDICAL ADVICE. The patient has decided to leave our facility against medical advice. I have assessed patient's ability to make informed decision and feel the patient has the capacity to comprehend information regarding the current medical condition and appreciates the impact of the disease or condition and the consequences of various options for treatment, including foregoing treatment. The patient possesses the ability to evaluate all treatment options, comparing the risks and benefits of each option, communicate his or her choice in a consistent manner over time, and is able to make rational choices. I explained to the patient further testing, treatment, and evaluation I would like to perform in the emergency department visit as well as any possible alternatives that can be accomplished in a timely manner. I have outlined the possible risks of foregoing any or all of these interventions and the patient understands and acknowledges that the decision to leave may result in undesirable consequences such as , permanent disability, and/or loss of current lifestyle. Even though leaving AMA is not ideal, I have instructed the patient to follow any discharge instructions given, take any medications prescribed, and resume care as soon as possible with another provider. This conversation was witnessed by another member of the emergency department staff and we clearly communicated the patient is welcome to return anytime to continue care at our facility. Ce Disclaimer: Dragkenny Disclaimer: This electronic medical record was generated, in whole or in part, using a voice recognition dictation system. Departure Departure Impression: Primary Impression: Left against medical advice Disposition: LEFT AGAINST MEDICAL ADVICE Condition: STABLE Additional Instructions: You have decided to leave AGAINST MEDICAL ADVICE prior to completion of your emergency department work-up. Patient does not wish to proceed with medical care recommended by Frank MEDEL. Patient given information related to possible complications, up to and including , which could occur as a result of leaving the hospital at this time. Patient verbalizes understanding of risks involved due to leaving against medical advice. Patient has signed AMA form. FRANK ELIZALDE TAX ASSISTANT Aug 24, 2021 16:55
== END 2021-08-24 15:29 | disposition left against medical advice (07) ==
LOC: ER 14:34
DX: M54.6 Pain in thoracic spine (principal); G89.29 Other chronic pain; Z90.49 Acquired absence of other specified parts of digestive tract; Z88.8 Allergy status to other drugs, medicaments and biological substances
CPT/HCPCS: 81001; 81025; 99283